=== PATIENT | male | born 1950 | race Caucasian/White ===

== ENCOUNTER → 2017-08-13 | Outpatient (CLI) | payer BC, MEDICARE ==
[2017-08-13 09:47] LABS: CH 30.3; CHCM 33.8; HCT 39.3 % (39.0-53.0); HDW 2.54; HGB 13.3 gm/dL (13.0-17.5); MCH 30.6 pg (25.0-35.0); MCHC 33.9 g/dL (31.0-37.0); MCV 90.2 fL (80.0-100.0); Mean Platelet Volume 7.4; RBC 4.36 m/uL (4.30-5.90); RDW 12.5 % (11.5-15.5); WBC 7.1 k/uL (3.8-10.6)
[2017-08-13 10:33] LABS: Erythrocyte Sedimentation Rate 8 mm/hr (0-15)
[2017-08-13 11:26] LABS: ALT 33 U/L (21-72); AST 24 U/L (17-59); Alkaline Phosphatase 82 U/L (38-126); Anion Gap 6 mmol/L; Blood Urea Nitrogen 21 mg/dL (9-20); Calcium 9.7 mg/dL (8.4-10.2); Carbon Dioxide 33 mmol/L (22-30); Chloride 100 mmol/L (98-107); Cholesterol 125 mg/dL (<200); Glucose 214 mg/dL (74-99); HDL Cholesterol 35 mg/dL (40-60); Non-African American GFR(MDRD) >60 (>60 ml/min/1.73 sqM); Potassium 4.8 mmol/L (3.5-5.1); Sodium 139 mmol/L (137-145); Total Bilirubin 0.3 mg/dL (0.2-1.3); Total Protein 6.5 g/dL (6.3-8.2)
[2017-08-13 11:53] LABS: Prostate Specific Antigen 0.62 ng/mL (0.00-4.00)
== END | disposition home or self-care (01) ==
LOC: LABWHC1 08:29
PROVIDERS: ATTEND Internal Medicine
DX: E11.9 Type 2 diabetes mellitus without complications (principal); G40.909 Epilepsy, unspecified, not intractable, without status epilepticus; Z79.4 Long term (current) use of insulin
CPT/HCPCS: 36415; 80053; 80061; 83036; 84153; 84443; 85027; 85652

== ENCOUNTER 2020-06-29 10:42 | Emergency (ER) | payer BC ==
[2020-06-29 10:50] VITALS: RESP 18; TEMP 98.4
[2020-06-29] MEDS ORDERED: Acetaminophen-Codeine 300-30mg TAB PO STA (11:18)
--- NOTE | 2020-06-29 11:19 | ED ---
Fall HPI - General Chief Complaint: Fall Stated Complaint: Fall, Time Seen by Provider: 06/29/20 11:09 Source: patient, family Mode of arrival: wheelchair - History of Present Illness Initial Comments: Patient is a 69 -year-old male presenting to emergency Department with a chief complaint of a fall. Patient reports that incident occurred 2 days ago when he tripped over a cat toy and landed on the left side of his body. Patient reports most of his pain is located in the left upper flank region. He also reports ecchymosis on the left side of the ribs. Patient reports the pain is exacerbated with left and right rotation. States he has been taking [id number] analgesics with minimal improvement in symptoms. He denies any head injuries or loss of consciousness. Denies blood thinners. Denies any head injuries. Patient states she has a history of chronic bilateral shoulder pain that is treated with cortisone injection. She does report some left-sided paraspinal tenderness near the left upper flank region. - Related Data Home Medications Medication Instructions Recorded Confirmed Amitriptyline HCl [Elavil] 50 mg PO HS 03/28/14 06/29/20 Enalapril [Vasotec] 2.5 mg PO DAILY 03/28/14 06/29/20 Insulin Glargine [Lantus] 22 units SQ HS 03/28/14 06/29/20 Multivitamin [Men's Multi-Vitamin] 1 tab PO DAILY 03/28/14 06/29/20 lamoTRIgine 200 mg PO BID 03/28/14 06/29/20 Calcium Carbonate/Vitamin D3 1 tab PO BID 04/03/14 06/29/20 [Caltrate 600 Plus D3 Tablet] Aspirin EC [Ecotrin] 325 mg PO DAILY 04/09/16 06/29/20 INSULIN ASPART (NovoLOG) [NovoLOG 7 unit SQ AC-TID 06/29/20 06/29/20 (formulary)] PARoxetine HCL [Paxil] 20 mg PO HS 06/29/20 06/29/20 Pravastatin Sodium [Pravachol] 40 mg PO HS 06/29/20 06/29/20 Allergies Allergy/AdvReac Type Severity Reaction Status Date / Time Penicillins Allergy Rash/Hives Verified 06/29/20 11:49 Review of Systems ROS Statement: Those systems with pertinent positive or pertinent negative responses have been documented in the HPI. ROS Other: All systems not noted in ROS Statement are negative. Past Medical History Past Medical History: Diabetes Mellitus, Eye Disorder, Hypertension, Seizure Disorder Additional Past Medical History / Comment(s): RASH LEFT ANKLE,VARICOSE VEINS,EYE FLOATERS,TREMORS,SEIZURES WITH LOW BLOOD SUGAR-LAST SEIZURE APPROX JUN 2015 History of Any Multi-Drug Resistant Organisms: None Reported Past Surgical History: Orthopedic Surgery Additional Past Surgical History / Comment(s): cataracts bilateral. total left knee Past Anesthesia/Blood Transfusion Reactions: No Reported Reaction Past Psychological History: No Psychological Hx Reported Smoking Status: Never smoker Past Alcohol Use History: None Reported Past Drug Use History: None Reported - Past Family History Brother(s) Family Medical History: Diabetes Mellitus Sister(s) Family Medical History: Diabetes Mellitus Additional Family Medical History / Comment(s): MS Father Family Medical History: Cancer, Diabetes Mellitus Additional Family Medical History / Comment(s): COLON [place] General Exam Limitations: no limitations General appearance: alert, in no apparent distress Head exam: Present: atraumatic, normocephalic, normal inspection Eye exam: Present: normal appearance, PERRL, EOMI Pupils: Present: normal accommodation ENT exam: Present: normal exam, normal oropharynx, mucous membranes moist, TM's normal bilaterally Neck exam: Present: normal inspection, full ROM. Absent: tenderness, meningismus Respiratory exam: Present: normal lung sounds bilaterally, chest wall tenderness (Contusion to the left upper flank region.). Absent: respiratory distress, wheezes, rales, rhonchi, stridor Cardiovascular Exam: Present: regular rate, normal rhythm, normal heart sounds GI/Abdominal exam: Present: soft. Absent: distended, tenderness, guarding, rebound, rigid Extremities exam: Present: normal inspection, full ROM, normal capillary refill, other (+2 ulnar and radial pulses bilaterally. +2 dorsalis pedis presented to vascular.). Absent: tenderness, pedal edema, joint swelling, calf tenderness Back exam: Present: normal inspection, full ROM, tenderness (Bilateral shoulder tenderness. No left hip pain or any lower extremity pain.), paraspinal tenderness (Left paraspinal in the thoracic region). Absent: CVA tenderness (R), CVA tenderness (L) Neurological exam: Present: alert, oriented X3, CN II-XII intact. Absent: normal gait Psychiatric exam: Present: normal affect, normal mood Skin exam: Present: warm, dry, intact, normal color Course Vital Signs 06/29/20 06/29/20 10:44 12:32 Temperature 98.4 F Pulse Rate 100 85 Respiratory 18 18 Rate Blood Pressure 128/73 148/75 O2 Sat by Pulse 99 98 Oximetry Medical Decision Making - Medical Decision Making Patient is a 69-year-old male presenting to emergency Department with a chief complaint of a fall. On physical examination, patient has ecchymosis measuring approximately a centimeters in length in the left upper flank region. Patient is taking shallow breaths in order to help with the discomfort. Patient was given a Tylenol 3 for symptomatically control. Chest and ribs x-ray reveals no signs of fracture dislocations. No signs of pneumo thorax. Patient was given an incentive spirometer. He will be discharged with Tylenol 3 starter pack and otherwise advised to alternate between Tylenol and Motrin for pain control. They were advised to follow with the primary care physician. Strict return parameters were thoroughly discussed the patient was understanding and agreeable. Case discussed with physician. Disposition Clinical Impression: Fall, Contusion of rib on left side Disposition: HOME SELF-CARE Condition: Good Instructions (If sedation given, give patient instructions): Fall Prevention (ED), Rib Contusion (ED) Additional Instructions: Use at this provider. Take Tylenol 3. Do not [address] or operative heavy machinery when taking medication. Return to emergency department if symptoms worsen. Is patient prescribed a controlled substance at d/c from ED?: No Referrals: John Aquino MD [Primary Care Provider] - 1-2 days Time of Disposition: 12:23
--- NOTE | 2020-06-29 11:59 | XR ---
EXAMINATION TYPE: XR ribs LT w pa chest xray DATE OF EXAM: 06/29/2020 COMPARISON: NONE HISTORY: Pain TECHNIQUE: Single view of the chest 4 views of the ribs are submitted. FINDINGS: The lungs are clear. No Evidence for pneumothorax. No evidence for focal contusion. Medi astinal structures are midline. Evaluation of the ribs fails to demonstrate evidence for displaced r ib fracture or secondary sign of rib fracture. IMPRESSION: Negative study
[2020-06-29] MEDS ORDERED: ACET/COD 300 MG/30 MG STARTER PACK 6 TAB BTL PO STA (12:21)
[2020-06-29 12:33] VITALS: BP 148/75; PULSE 85
== END 2020-06-29 12:42 | disposition home or self-care (01) ==
LOC: SUPCPDRO 10:42 → EC 10:42
DX: S20.212A Contusion of left front wall of thorax, initial encounter (principal); E11.9 Type 2 diabetes mellitus without complications; I10 Essential (primary) hypertension; G40.909 Epilepsy, unspecified, not intractable, without status epilepticus; Z79.4 Long term (current) use of insulin; Z79.899 Other long term (current) drug therapy; Z88.0 Allergy status to penicillin; W01.198A Fall on same level from slipping, tripping and stumbling with subsequent striking against other object, initial encounter; Y93.01 Activity, walking, marching and hiking; Y92.000 Kitchen of unspecified non-institutional (private) residence as the place of occurrence of the external cause
CPT/HCPCS: 99283

== ENCOUNTER 2021-02-20 14:30 | Inpatient (IN) | payer BC, MEDICARE ==
[2021-02-20 14:40] LABS: Glucose,Whole Blood >600 mg/dL (75-99)
[2021-02-20] MEDS ORDERED: SODIUM CHLORIDE 0.9% 1,000 ML IV ONE (14:51)
[2021-02-20] MEDS ORDERED: INSULIN REGULAR BOLUS (FROM DRIP BAG) IV ONE (14:51)
[2021-02-20] MEDS ORDERED: SODIUM CHLORIDE 0.9% 1,000 ML IV STA (14:54)
--- NOTE | 2021-02-20 14:57 | ED ---
General Adult HPI - General Chief complaint: Weakness Stated complaint: High Blood Sugar Time Seen by Provider: 02/20/21 14:32 Source: patient, EMS, RN notes reviewed Mode of arrival: EMS Limitations: no limitations - History of Present Illness Initial comments: Patient is a pleasant 70-year-old male presenting to the emergency Department with hyperglycemia and fatigue. Onset of symptoms was several days ago. Patient does have polyuria and polydipsia. Patient does have history of similar symptoms previously associated with hyperglycemia. Patient states no recent change in medications. No recent illness. No isolated area of weakness. No confusion. - Related Data Home Medications Medication Instructions Recorded Confirmed Amitriptyline HCl [Elavil] 50 mg PO HS 03/28/14 06/29/20 Enalapril [Vasotec] 2.5 mg PO DAILY 03/28/14 06/29/20 Insulin Glargine [Lantus] 22 units SQ HS 03/28/14 06/29/20 Multivitamin [Men's Multi-Vitamin] 1 tab PO DAILY 03/28/14 06/29/20 lamoTRIgine 200 mg PO BID 03/28/14 06/29/20 Calcium Carbonate/Vitamin D3 1 tab PO BID 04/03/14 06/29/20 [Caltrate 600 Plus D3 Tablet] Aspirin EC [Ecotrin] 325 mg PO DAILY 04/09/16 06/29/20 INSULIN ASPART (NovoLOG) [NovoLOG 7 unit SQ AC-TID 06/29/20 06/29/20 (formulary)] PARoxetine HCL [Paxil] 20 mg PO HS 06/29/20 06/29/20 Pravastatin Sodium [Pravachol] 40 mg PO HS 06/29/20 06/29/20 Allergies Allergy/AdvReac Type Severity Reaction Status Date / Time Penicillins Allergy Rash/Hives Verified 02/20/21 14:37 Review of Systems ROS Statement: Those systems with pertinent positive or pertinent negative responses have been documented in the HPI. ROS Other: All systems not noted in ROS Statement are negative. Constitutional: Denies: fever Eyes: Denies: eye pain ENT: Denies: ear pain Respiratory: Denies: cough, dyspnea Cardiovascular: Denies: chest pain Endocrine: Reports: fatigue, polydipsia, polyuria Gastrointestinal: Denies: abdominal pain Genitourinary: Denies: urgency Musculoskeletal: Denies: back pain Skin: Denies: lesions Neurological: Denies: weakness Past Medical History Past Medical History: Diabetes Mellitus, Eye Disorder, Hypertension, Seizure Disorder Additional Past Medical History / Comment(s): RASH LEFT ANKLE,VARICOSE VEINS,EYE FLOATERS,TREMORS,SEIZURES WITH LOW BLOOD SUGAR-LAST SEIZURE APPROX JUN 2015 History of Any Multi-Drug Resistant Organisms: None Reported Past Surgical History: Orthopedic Surgery Additional Past Surgical History / Comment(s): cataracts bilateral. total left knee Past Anesthesia/Blood Transfusion Reactions: No Reported Reaction Past Psychological History: No Psychological Hx Reported Smoking Status: Never smoker Past Alcohol Use History: None Reported Past Drug Use History: None Reported - Past Family History Brother(s) Family Medical History: Diabetes Mellitus Sister(s) Family Medical History: Diabetes Mellitus Additional Family Medical History / Comment(s): MS Father Family Medical History: Cancer, Diabetes Mellitus Additional Family Medical History / Comment(s): [place] General Exam Limitations: no limitations General appearance: alert, in no apparent distress Head exam: Present: normocephalic Eye exam: Present: normal appearance ENT exam: Present: mucous membranes dry Neck exam: Present: normal inspection Respiratory exam: Present: normal lung sounds bilaterally Cardiovascular Exam: Present: tachycardia GI/Abdominal exam: Present: soft. Absent: tenderness Extremities exam: Present: normal inspection Neurological exam: Present: alert. Absent: motor sensory deficit Expanded Motor strength exam: RUE: 5, LUE: 5, RLE: 5, LLE: 5 Psychiatric exam: Present: normal affect, normal mood Skin exam: Present: normal color Course Vital Signs 02/20/21 02/20/21 14:31 15:44 Temperature 98.1 F Pulse Rate 121 H 118 H Respiratory 18 18 Rate Blood Pressure 123/54 99/53 O2 Sat by Pulse 100 100 Oximetry EKG Findings - EKG Comments: EKG Findings:: Sinus tachycardia 121. TX 142. QRS 136. QT 378. QTC 536. Left axis. Nonspecific intra-articular block. Prominent T waves. Medical Decision Making - Medical Decision Making Patient reevaluated. Patient and family updated. Case discussed with Dr. Simons, who will admit, Dr. Aquino. Insulin drip started. Fluid bolus is provided. - Lab Data Result diagrams: 02/20/21 14:57 02/20/21 14:57 Lab Results 02/20/21 02/20/21 02/20/21 Range/Units 14:38 14:57 14:57 WBC 17.7 H (3.8-10.6) k/uL RBC 4.54 (4.30-5.90) m/uL Hgb 13.2 (13.0-17.5) gm/dL Hct 44.9 (39.0-53.0) % MCV 98.9 (80.0-100.0) fL MCH 29.0 (25.0-35.0) pg MCHC 29.3 L (31.0-37.0) g/dL RDW 13.0 (11.5-15.5) % Plt Count 211 (150-450) k/uL MPV 9.2 Neutrophils % 91 % Lymphocytes % 4 % Monocytes % 4 % Eosinophils % 0 % Basophils % 0 % Neutrophils # 16.2 H (1.3-7.7) k/uL Lymphocytes # 0.7 L (1.0-4.8) k/uL Monocytes # 0.8 (0-1.0) k/uL Eosinophils # 0.0 (0-0.7) k/uL Basophils # 0.0 (0-0.2) k/uL Hypochromasia Marked Sodium (137-145) mmol/L Potassium (3.5-5.1) mmol/L Chloride (98-107) mmol/L Carbon Dioxide (22-30) mmol/L Anion Gap mmol/L BUN (9-20) mg/dL Creatinine (0.66-1.25) mg/dL Est GFR (CKD-EPI)AfAm (>60 ml/min/1.73 sqM) Est GFR (CKD-EPI)NonAf (>60 ml/min/1.73 sqM) Glucose (74-99) mg/dL POC Glucose (mg/dL) >600 H (75-99) mg/dL POC Glu [employer] Scientist ID Akila Peñaloza Calcium (8.4-10.2) mg/dL Total Bilirubin (0.2-1.3) mg/dL AST (17-59) U/L ALT (4-49) U/L Alkaline Phosphatase (38-126) U/L Troponin I (0.000-0.034) ng/mL Total Protein (6.3-8.2) g/dL Albumin (3.5-5.0) g/dL Urine Color Colorless Urine Appearance Clear (Clear) Urine pH 5.0 (5.0-8.0) Ur Specific [place] 1.019 (1.001-1.035) Urine Protein Negative (Negative) Urine Glucose (UA) 4+ H (Negative) Urine Ketones 4+ H (Negative) Urine Blood Negative (Negative) Urine Nitrite Negative (Negative) Urine Bilirubin Negative (Negative) Urine Urobilinogen <2.0 (<2.0) mg/dL Ur Leukocyte Esterase Negative (Negative) 02/20/21 02/20/21 Range/Units 14:57 14:57 WBC (3.8-10.6) k/uL RBC (4.30-5.90) m/uL Hgb (13.0-17.5) gm/dL Hct (39.0-53.0) % MCV (80.0-100.0) fL MCH (25.0-35.0) pg MCHC (31.0-37.0) g/dL RDW (11.5-15.5) % Plt Count (150-450) k/uL MPV Neutrophils % % Lymphocytes % % Monocytes % % Eosinophils % % Basophils % % Neutrophils # (1.3-7.7) k/uL Lymphocytes # (1.0-4.8) k/uL Monocytes # (0-1.0) k/uL Eosinophils # (0-0.7) k/uL Basophils # (0-0.2) k/uL Hypochromasia Sodium 131 L (137-145) mmol/L Potassium 6.2 H* (3.5-5.1) mmol/L Chloride 93 L (98-107) mmol/L Carbon Dioxide 11 L (22-30) mmol/L Anion Gap 27 mmol/L BUN 33 H (9-20) mg/dL Creatinine 1.48 H (0.66-1.25) mg/dL Est GFR (CKD-EPI)AfAm 56 (>60 ml/min/1.73 sqM) Est GFR (CKD-EPI)NonAf 48 (>60 ml/min/1.73 sqM) Glucose 798 H* (74-99) mg/dL POC Glucose (mg/dL) (75-99) mg/dL POC Glu Plant [employer]eder Scientist ID Calcium 10.3 H (8.4-10.2) mg/dL Total Bilirubin 0.9 (0.2-1.3) mg/dL AST 27 (17-59) U/L ALT 18 (4-49) U/L Alkaline Phosphatase 136 H (38-126) U/L Troponin I <0.012 (0.000-0.034) ng/mL Total Protein 7.0 (6.3-8.2) g/dL Albumin 4.8 (3.5-5.0) g/dL Urine Color Urine Appearance (Clear) Urine pH (5.0-8.0) Ur Specific [place] (1.001-1.035) Urine Protein (Negative) Urine Glucose (UA) (Negative) Urine Ketones (Negative) Urine Blood (Negative) Urine Nitrite (Negative) Urine Bilirubin (Negative) Urine Urobilinogen (<2.0) mg/dL Ur Leukocyte Esterase (Negative) Critical Care Time Critical Care Time: Yes Total Critical Care Time: 32 Disposition Clinical Impression: DKA (diabetic ketoacidoses) Disposition: ADMITTED IP TO THIS HOSP Condition: Serious Is patient prescribed a controlled substance at d/c from ED?: No Referrals: John Aquino MD [Primary Care Provider] - 1-2 days Decision Time: 15:57
[2021-02-20 15:08] LABS: Basophils % (A) 0 %; Eosinophils % (A) 0 %; HCT 44.9 % (39.0-53.0); HGB 13.2 gm/dL (13.0-17.5); Hypochromasia Marked; Lymphocytes # (A) 0.7 k/uL (1.0-4.8); Lymphocytes % (A) 4 %; MCHC 29.3 g/dL (31.0-37.0); MCV 98.9 fL (80.0-100.0); Mean Platelet Volume 9.2; Monocytes # (A) 0.8 k/uL (0-1.0); Monocytes % (A) 4 %; Neutrophils # (A) 16.2 k/uL (1.3-7.7); Neutrophils % (A) 91 %; Platelet Count 211 k/uL (150-450); RBC 4.54 m/uL (4.30-5.90); WBC 17.7 k/uL (3.8-10.6)
[2021-02-20 15:20] LABS: ALT 18 U/L (4-49); AST 27 U/L (17-59); African American GFR (CKD) 56 (>60 ml/min/1.73 sqM); Albumin 4.8 g/dL (3.5-5.0); Alkaline Phosphatase 136 U/L (38-126); Anion Gap 27 mmol/L; Blood Urea Nitrogen 33 mg/dL (9-20); Calcium 10.3 mg/dL (8.4-10.2); Carbon Dioxide 11 mmol/L (22-30); Chloride 93 mmol/L (98-107); Non-African American GFR(CKD) 48 (>60 ml/min/1.73 sqM); Sodium 131 mmol/L (137-145); Total Bilirubin 0.9 mg/dL (0.2-1.3)
[2021-02-20 15:29] LABS: Glucose 798 mg/dL (74-99); Potassium 6.2 mmol/L (3.5-5.1)
[2021-02-20] MEDS ORDERED: SODIUM CHLORIDE 0.9% 500 ML 500 ML IV STA (15:36)
[2021-02-20 15:38] LABS: Appearance,Urine Clear (Clear); Bilirubin,Urine Negative (Negative); Blood,Urine Negative (Negative); Color,Urine Colorless; Glucose,Urine (UA) 4+ (Negative); Leukocyte Esterase,Urine Negative (Negative); Nitrite,Urine Negative (Negative); Protein,Urine Negative (Negative); Specific Gravity,Urine 1.019 (1.001-1.035); Urobilinogen,Urine <2.0 mg/dL (<2.0)
[2021-02-20] MEDS: INSULIN REGULAR 100 UNIT in SODIUM CHLORIDE 0.9% 100 ML IV SCH (15:41)
[2021-02-20 15:48] LABS: Ketones,Urine 4+ (Negative)
[2021-02-20] MEDS ORDERED: NALOXONE 0.4 MG/ML 1 ML VIAL IV PRN (15:57)
[2021-02-20] MEDS ORDERED: ONDANSETRON 4 MG/2 ML VIAL IVP PRN (15:57)
[2021-02-20 16:52] LABS: Glucose,Whole Blood >600 mg/dL (75-99)
--- NOTE | 2021-02-20 17:02 | XR ---
EXAMINATION TYPE: XR chest 2V DATE OF EXAM: 02/20/2021 CLINICAL HISTORY: Weakness. TECHNIQUE: Frontal and lateral view of the chest. COMPARISON: 06/29/2020 FINDINGS: The cardiomediastinal silhouette is within normal limits for size. Pulmonary vasculature i s normal. There is no focal air space opacity. No pleural effusion. No pneumothorax seen. No acute d isplaced osseous fracture. IMPRESSION: No acute cardiopulmonary process.
[2021-02-20 17:44] LABS: Glucose,Whole Blood >600 mg/dL (75-99)
[2021-02-20 18:50] LABS: Glucose,Whole Blood 543 mg/dL (75-99)
[2021-02-20 20:33] LABS: Potassium 4.3 mmol/L (3.5-5.1)
[2021-02-20 20:52] LABS: Glucose,Whole Blood 330 mg/dL (75-99)
[2021-02-20 21:28] LABS: Glucose,Whole Blood 309 mg/dL (75-99)
[2021-02-20 22:29] LABS: Glucose,Whole Blood 318 mg/dL (75-99)
[2021-02-20 23:27] LABS: Glucose,Whole Blood 218 mg/dL (75-99)
[2021-02-20 23:59] LABS: Phosphorus 1.5 mg/dL (2.5-4.5); Potassium 4.1 mmol/L (3.5-5.1)
[2021-02-21] MEDS: D5-0.45% NACL WITH KCL 20MEQ/L 1,000 ML IV SCH ×3 (00:16→11:55)
[2021-02-21] MEDS: SODIUM CHLORIDE 0.9% 1,000 ML IV SCH ×4 (00:20→06:19)
[2021-02-21 00:35] LABS: Glucose,Whole Blood 194 mg/dL (75-99)
[2021-02-21 02:30] LABS: Glucose,Whole Blood 303 mg/dL (75-99)
[2021-02-21 03:59] LABS: Glucose,Whole Blood 339 mg/dL (75-99)
[2021-02-21] MEDS: INSULIN REGULAR 100 UNIT in SODIUM CHLORIDE 0.9% 100 ML IV SCH ×2 (04:12→04:31)
[2021-02-21 05:30] LABS: Basophils % (A) 0 %; Eosinophils % (A) 0 %; HCT 36.3 % (39.0-53.0); HGB 12.6 gm/dL (13.0-17.5); Lymphocytes # (A) 1.1 k/uL (1.0-4.8); Lymphocytes % (A) 8 %; MCH 31.5 pg (25.0-35.0); MCHC 34.6 g/dL (31.0-37.0); Mean Platelet Volume 8.2; Monocytes # (A) 1.2 k/uL (0-1.0); Monocytes % (A) 8 %; Neutrophils # (A) 11.7 k/uL (1.3-7.7); Neutrophils % (A) 82 %; Platelet Count 178 k/uL (150-450); RBC 3.99 m/uL (4.30-5.90); RDW 13.1 % (11.5-15.5); WBC 14.3 k/uL (3.8-10.6)
[2021-02-21 05:45] LABS: ALT 16 U/L (4-49); AST 33 U/L (17-59); African American GFR (CKD) >90 (>60 ml/min/1.73 sqM); Albumin 3.7 g/dL (3.5-5.0); Alkaline Phosphatase 87 U/L (38-126); Anion Gap 16 mmol/L; Blood Urea Nitrogen 30 mg/dL (9-20); Calcium 9.5 mg/dL (8.4-10.2); Carbon Dioxide 16 mmol/L (22-30); Chloride 101 mmol/L (98-107); Glucose 344 mg/dL (74-99); Non-African American GFR(CKD) 83 (>60 ml/min/1.73 sqM); Potassium 4.7 mmol/L (3.5-5.1); Sodium 133 mmol/L (137-145); Total Bilirubin 0.5 mg/dL (0.2-1.3); Total Protein 5.9 g/dL (6.3-8.2)
[2021-02-21 06:18] LABS: Glucose,Whole Blood 328 mg/dL (75-99)
[2021-02-21 07:44] LABS: Glucose,Whole Blood 258 mg/dL (75-99)
[2021-02-21 08:15] LABS: African American GFR (CKD) >90 (>60 ml/min/1.73 sqM); Anion Gap 8 mmol/L; Blood Urea Nitrogen 28 mg/dL (9-20); Carbon Dioxide 23 mmol/L (22-30); Chloride 104 mmol/L (98-107); Glucose 251 mg/dL (74-99); Non-African American GFR(CKD) >90 (>60 ml/min/1.73 sqM); Phosphorus 1.1 mg/dL (2.5-4.5); Potassium 3.9 mmol/L (3.5-5.1); Sodium 135 mmol/L (137-145)
[2021-02-21 08:37] LABS: Glucose,Whole Blood 203 mg/dL (75-99)
[2021-02-21] MEDS ORDERED: Phosphorus Replacement Protoco 1 EACH MISC MISCELLANE PRN (09:02)
[2021-02-21 09:34] LABS: Glucose,Whole Blood 144 mg/dL (75-99)
[2021-02-21] MEDS: SODIUM PHOSPHATE 10 MMOL in SODIUM CHLORIDE 0.9% 250 ML IVPB SCH ×3 (09:45→14:02)
[2021-02-21 10:52] LABS: Glucose,Whole Blood 95 mg/dL (75-99)
[2021-02-21 11:49] LABS: Glucose,Whole Blood 147 mg/dL (75-99)
[2021-02-21] MEDS: INSULIN ASPART (NovoLOG) 100 UNIT/ML VIAL SQ SCH ×5 (12:00→21:09)
[2021-02-21 12:54] LABS: African American GFR (CKD) >90 (>60 ml/min/1.73 sqM); Anion Gap 8 mmol/L; Blood Urea Nitrogen 27 mg/dL (9-20); Carbon Dioxide 22 mmol/L (22-30); Chloride 104 mmol/L (98-107); Glucose 138 mg/dL (74-99); Non-African American GFR(CKD) >90 (>60 ml/min/1.73 sqM); Phosphorus 2.4 mg/dL (2.5-4.5); Potassium 4.1 mmol/L (3.5-5.1); Sodium 134 mmol/L (137-145)
[2021-02-21] MEDS ORDERED: CALCIUM CARBONATE 500 MG CHEWABLE PO PRN (14:01)
[2021-02-21 14:18] LABS: Hemoglobin A1C 8.7 % (4.0-6.0)
[2021-02-21 17:58] LABS: Glucose,Whole Blood 379 mg/dL (75-99)
[2021-02-21 20:51] LABS: Glucose,Whole Blood 250 mg/dL (75-99)
--- NOTE | 2021-02-21 20:59 | CT ---
EXAMINATION TYPE: CT brain wo con DATE OF EXAM: 02/21/2021 COMPARISON: 04/03/2014 INDICATION: ams, DKA DLP: 1099.4 mGycm, Automated exposure control for dose reduction was used. CONTRAST: None CT of the brain is performed utilizing 3 mm thick sections through the posterior fossa and 3 mm thick sections through the remaining calvarium. Study is performed within 24 hours of arrival to the hosp [facility]. No abnormal hyperdensity is present to suggest an acute intracranial hemorrhage. No mass lesion is evident. No acute infarcts are evident. Periventricular white matter hypodensity is present which is nonspecif ic but could be related to microvascular ischemic change. Ventricles and sulci are appropriate for the patient age. Paranasal sinuses and mastoid air cells within the [id number] are clear. IMPRESSIONS: 1. Atrophy with periventricular white matter ischemic type changes. 2. Findings appear progressive over the interval.
--- NOTE | 2021-02-21 21:06 | P.HPIM ---
History of Present Illness H&P Date: 02/21/21 Thang Key is a 70-year-old male patient of Dr. Aquino who presented to [facility] emergency room due to severe elevation in glucose level. Patient stated that he was having elevated glucose levels his glucometer was reading high he tried to increase his insulin doses but was not able to control his sugar level patient was feeling very tired he was having polydipsia and polyuria and decided to come to emergency room for further treatment. Patient was evaluated in emergency room vital examination on presentation revealed a temperature of 98.1 pulse 121 respiration 18 blood pressure 123/54 pulse ox 100% on room air laboratory data revealed a white blood count of 17.7 hemoglobin 13.2 platelet count 211 sodium 131 potassium 6.2 BUN 33 creatinine 1.48 glucose level on presentation was 798 CO2 level was 11 patient was started on IV fluid, IV insulin drip, and was admitted to telemetry floor for further evaluation and treatment. Past Medical History Past Medical History: Diabetes Mellitus, Eye Disorder, Hypertension, Seizure D isorder Additional Past Medical History / Comment(s): RASH LEFT ANKLE,VARICOSE VEINS,EYE FLOATERS,TREMORS,SEIZURES WITH LOW BLOOD SUGAR-LAST SEIZURE APPROX JUN 2015 History of Any Multi-Drug Resistant Organisms: None Reported Past Surgical History: Orthopedic Surgery Additional Past Surgical History / Comment(s): cataracts bilateral. total left knee Past Anesthesia/Blood Transfusion Reactions: No Reported Reaction Past Psychological History: No Psychological Hx Reported Smoking Status: Never smoker Past Alcohol Use History: None Reported Past Drug Use History: None Reported - Past Family History Brother(s) Family Medical History: Diabetes Mellitus Sister(s) Family Medical History: Diabetes Mellitus Additional Family Medical History / Comment(s): MS Father Family Medical History: Cancer, Diabetes Mellitus Additional Family Medical History / Comment(s): COLON CA Medications and Allergies Home Medications Medication Instructions Recorded Confirmed Type Amitriptyline HCl [Elavil] 50 mg PO HS 03/28/14 02/20/21 History Enalapril [Vasotec] 2.5 mg PO DAILY 03/28/14 02/20/21 History Insulin Glargine [Lantus] 22 units SQ HS 03/28/14 02/20/21 History Multivitamin [Men's Multi-Vitamin] 1 tab PO DAILY 03/28/14 02/20/21 History lamoTRIgine 400 mg PO DAILY 03/28/14 02/20/21 History Aspirin EC [Ecotrin] 325 mg PO DAILY 04/09/16 02/20/21 History INSULIN ASPART (NovoLOG) [NovoLOG 7 unit SQ AC-TID 06/29/20 02/20/21 History (formulary)] PARoxetine HCL [Paxil] 40 mg PO HS 06/29/20 02/20/21 History Pravastatin Sodium [Pravachol] 40 mg PO HS 06/29/20 02/20/21 History Calcium Carbonate [Calcium] 600 mg PO DAILY 02/20/21 02/20/21 History Allergies Allergy/AdvReac Type Severity Reaction Status Date / Time Penicillins Allergy Rash/Hives Verified 02/20/21 17:14 Physical Exam Vitals: Vital Signs Temp Pulse Resp BP Pulse Ox 02/21/21 06:07 98 17 130/66 97 02/20/21 22:42 98.1 F 98 18 137/63 97 02/20/21 16:56 120/49 02/20/21 16:15 119 H 20 108/47 98 02/20/21 15:44 118 H 18 99/53 100 02/20/21 14:31 98.1 F 121 H 18 123/54 100 Intake and Output 02/20/21 02/21/21 02/21/21 22:59 06:59 14:59 Intake Total 119.080 Balance 119.080 Intake: Intake, IV Titration 119.080 Amount Insulin Regular 100 unit 119.080 In Sodium Chloride 0.9% 100 ml @ 0.1 UNITS/KG/HR 8.475 mls/hr IV .[id number] Rx#:[id number] In general patient is alert and oriented x3 in no distress HEENT head normocephalic and atraumatic Neck is supple no JVD no goiter no lymphadenopathy no carotid bruit Chest examination is clear to auscultation no crackles no wheezing Cardiac exam reveals regular heart sounds S1 and S2 no gallops no murmurs Abdomen is soft nontender no organomegaly with normal bowel sounds Extremity exam reveals no edema no cyanosis or clubbing Neurological examination reveals significant expressive aphasia otherwise no gross focal deficits, is at the bedside and she stated that patient had difficulty with his speech for a long time however current symptoms are much worse then usual Results CBC & Chem 7: 02/21/21 04:10 02/21/21 12:07 Labs: Abnormal Lab Results - Last 24 Hours (Table) 02/20/21 02/20/21 02/20/21 Range/Units 14:38 14:57 14:57 WBC 17.7 H (3.8-10.6) k/uL RBC (4.30-5.90) m/uL Hgb (13.0-17.5) gm/dL Hct (39.0-53.0) % MCHC 29.3 L (31.0-37.0) g/dL Neutrophils # 16.2 H (1.3-7.7) k/uL Lymphocytes # 0.7 L (1.0-4.8) k/uL Monocytes # (0-1.0) k/uL Sodium (137-145) mmol/L Potassium (3.5-5.1) mmol/L Chloride (98-107) mmol/L Carbon Dioxide (22-30) mmol/L BUN (9-20) mg/dL Creatinine (0.66-1.25) mg/dL Glucose (74-99) mg/dL POC Glucose (mg/dL) >600 H (75-99) mg/dL Osmolality (280-301) mosm/kg Calcium (8.4-10.2) mg/dL Phosphorus (2.5-4.5) mg/dL Alkaline Phosphatase (38-126) U/L Total Protein (6.3-8.2) g/dL Urine Glucose (UA) 4+ H (Negative) Urine Ketones 4+ H (Negative) 02/20/21 02/20/21 02/20/21 Range/Units 14:57 14:57 16:50 WBC (3.8-10.6) k/uL RBC (4.30-5.90) m/uL Hgb (13.0-17.5) gm/dL Hct (39.0-53.0) % MCHC (31.0-37.0) g/dL Neutrophils # (1.3-7.7) k/uL Lymphocytes # (1.0-4.8) k/uL Monocytes # (0-1.0) k/uL Sodium 131 L (137-145) mmol/L Potassium 6.2 H* (3.5-5.1) mmol/L Chloride 93 L (98-107) mmol/L Carbon Dioxide 11 L (22-30) mmol/L BUN 33 H (9-20) mg/dL Creatinine 1.48 H (0.66-1.25) mg/dL Glucose 798 H* (74-99) mg/dL POC Glucose (mg/dL) >600 H (75-99) mg/dL Osmolality 340 H* (280-301) mosm/kg Calcium 10.3 H (8.4-10.2) mg/dL Phosphorus (2.5-4.5) mg/dL Alkaline Phosphatase 136 H (38-126) U/L Total Protein (6.3-8.2) g/dL Urine Glucose (UA) (Negative) Urine Ketones (Negative) 02/20/21 02/20/21 02/20/21 Range/Units 17:41 18:49 19:29 WBC (3.8-10.6) k/uL RBC (4.30-5.90) m/uL Hgb (13.0-17.5) gm/dL Hct (39.0-53.0) % MCHC (31.0-37.0) g/dL Neutrophils # (1.3-7.7) k/uL Lymphocytes # (1.0-4.8) k/uL Monocytes # (0-1.0) k/uL Sodium (137-145) mmol/L Potassium (3.5-5.1) mmol/L Chloride (98-107) mmol/L Carbon Dioxide (22-30) mmol/L BUN (9-20) mg/dL Creatinine (0.66-1.25) mg/dL Glucose (74-99) mg/dL POC Glucose (mg/dL) >600 H 543 H (75-99) mg/dL Osmolality (280-301) mosm/kg Calcium (8.4-10.2) mg/dL Phosphorus 2.0 L (2.5-4.5) mg/dL Alkaline Phosphatase (38-126) U/L Total Protein (6.3-8.2) g/dL Urine Glucose (UA) (Negative) Urine Ketones (Negative) 02/20/21 02/20/21 02/20/21 Range/Units 19:29 20:51 21:27 WBC (3.8-10.6) k/uL RBC (4.30-5.90) m/uL Hgb (13.0-17.5) gm/dL Hct (39.0-53.0) % MCHC (31.0-37.0) g/dL Neutrophils # (1.3-7.7) k/uL Lymphocytes # (1.0-4.8) k/uL Monocytes # (0-1.0) k/uL Sodium (137-145) mmol/L Potassium (3.5-5.1) mmol/L Chloride (98-107) mmol/L Carbon Dioxide 16 L (22-30) mmol/L BUN 33 H (9-20) mg/dL Creatinine 1.32 H (0.66-1.25) mg/dL Glucose 438 H (74-99) mg/dL POC Glucose (mg/dL) 330 H 309 H (75-99) mg/dL Osmolality (280-301) mosm/kg Calcium (8.4-10.2) mg/dL Phosphorus (2.5-4.5) mg/dL Alkaline Phosphatase (38-126) U/L Total Protein (6.3-8.2) g/dL Urine Glucose (UA) (Negative) Urine Ketones (Negative) 02/20/21 02/20/21 02/20/21 Range/Units 22:27 23:09 23:25 WBC (3.8-10.6) k/uL RBC (4.30-5.90) m/uL Hgb (13.0-17.5) gm/dL Hct (39.0-53.0) % MCHC (31.0-37.0) g/dL Neutrophils # (1.3-7.7) k/uL Lymphocytes # (1.0-4.8) k/uL Monocytes # (0-1.0) k/uL Sodium (137-145) mmol/L Potassium (3.5-5.1) mmol/L Chloride (98-107) mmol/L Carbon Dioxide (22-30) mmol/L BUN 34 H (9-20) mg/dL Creatinine (0.66-1.25) mg/dL Glucose 222 H (74-99) mg/dL POC Glucose (mg/dL) 318 H 218 H (75-99) mg/dL Osmolality (280-301) mosm/kg Calcium (8.4-10.2) mg/dL Phosphorus 1.5 L (2.5-4.5) mg/dL Alkaline Phosphatase (38-126) U/L Total Protein (6.3-8.2) g/dL Urine Glucose (UA) (Negative) Urine Ketones (Negative) 02/21/21 02/21/21 02/21/21 Range/Units 00:33 02:29 03:58 WBC (3.8-10.6) k/uL RBC (4.30-5.90) m/uL Hgb (13.0-17.5) gm/dL Hct (39.0-53.0) % MCHC (31.0-37.0) g/dL Neutrophils # (1.3-7.7) k/uL Lymphocytes # (1.0-4.8) k/uL Monocytes # (0-1.0) k/uL Sodium (137-145) mmol/L Potassium (3.5-5.1) mmol/L Chloride (98-107) mmol/L Carbon Dioxide (22-30) mmol/L BUN (9-20) mg/dL Creatinine (0.66-1.25) mg/dL Glucose (74-99) mg/dL POC Glucose (mg/dL) 194 H 303 H 339 H (75-99) mg/dL Osmolality (280-301) mosm/kg Calcium (8.4-10.2) mg/dL Phosphorus (2.5-4.5) mg/dL Alkaline Phosphatase (38-126) U/L Total Protein (6.3-8.2) g/dL Urine Glucose (UA) (Negative) Urine Ketones (Negative) 02/21/21 02/21/21 02/21/21 Range/Units 04:10 04:10 06:16 WBC 14.3 H (3.8-10.6) k/uL RBC 3.99 L (4.30-5.90) m/uL Hgb 12.6 L (13.0-17.5) gm/dL Hct 36.3 L (39.0-53.0) % MCHC (31.0-37.0) g/dL Neutrophils # 11.7 H (1.3-7.7) k/uL Lymphocytes # (1.0-4.8) k/uL Monocytes # 1.2 H (0-1.0) k/uL Sodium 133 L (137-145) mmol/L Potassium (3.5-5.1) mmol/L Chloride (98-107) mmol/L Carbon Dioxide 16 L (22-30) mmol/L BUN 30 H (9-20) mg/dL Creatinine (0.66-1.25) mg/dL Glucose 344 H (74-99) mg/dL POC Glucose (mg/dL) 328 H (75-99) mg/dL Osmolality (280-301) mosm/kg Calcium (8.4-10.2) mg/dL Phosphorus (2.5-4.5) mg/dL Alkaline Phosphatase (38-126) U/L Total Protein 5.9 L (6.3-8.2) g/dL Urine Glucose (UA) (Negative) Urine Ketones (Negative) Assessment and Plan Plan: Diabetic ketoacidosis, patient was started on IV fluid IV insulin drip and electrolyte correction called Underlying history of hypertension Underlying history of hyperlipidemia Underlying history of insulin-dependent diabetes mellitus Underlying history of depression Expressive aphasia At this time patient is admitted to telemetry floor He was started on insulin drip and IV fluid Home medications reviewed and reordered Computed tomography scan of the brain was requested in regard to expressive aphasia, neurology consultation requested Will follow closely
[2021-02-21] MEDS: INSULIN DETEMIR (LEVEMIR) 100 UNIT/ML SYR SQ SCH (21:10)
[2021-02-22 00:47] LABS: Glucose,Whole Blood 121 mg/dL (75-99)
[2021-02-22] MEDS: lamoTRIgine 100 MG TAB PO SCH ×2 (01:27→08:35)
[2021-02-22] MEDS: PARoxetine 20 MG TAB PO SCH ×2 (01:28→20:44)
[2021-02-22] MEDS: ASPIRIN 325 MG TAB PO SCH ×2 (01:28→08:36)
[2021-02-22] MEDS: AMITRIPTYLINE HCL 50 MG TAB PO SCH ×2 (01:28→20:44)
[2021-02-22] MEDS: PRAVASTATIN SODIUM 40 MG TAB PO SCH ×2 (01:29→20:44)
[2021-02-22] MEDS: lisinopriL 5 MG TAB PO SCH ×2 (01:29→08:36)
[2021-02-22 07:17] LABS: Glucose,Whole Blood 72 mg/dL (75-99)
[2021-02-22 07:55] LABS: Basophils % (A) 0 %; Eosinophils # (A) 0.2 k/uL (0-0.7); Eosinophils % (A) 3 %; HCT 41.8 % (39.0-53.0); HGB 13.9 gm/dL (13.0-17.5); Lymphocytes # (A) 1.9 k/uL (1.0-4.8); Lymphocytes % (A) 22 %; MCH 29.6 pg (25.0-35.0); MCHC 33.2 g/dL (31.0-37.0); MCV 89.3 fL (80.0-100.0); Mean Platelet Volume 7.7; Monocytes # (A) 0.6 k/uL (0-1.0); Monocytes % (A) 7 %; Neutrophils # (A) 5.8 k/uL (1.3-7.7); Neutrophils % (A) 66 %; Platelet Count 166 k/uL (150-450); RBC 4.68 m/uL (4.30-5.90); WBC 8.7 k/uL (3.8-10.6)
[2021-02-22 08:03] LABS: ALT 19 U/L (4-49); AST 42 U/L (17-59); African American GFR (CKD) >90 (>60 ml/min/1.73 sqM); Albumin 3.7 g/dL (3.5-5.0); Albumin/Globulin Ratio 1.6; Alkaline Phosphatase 67 U/L (38-126); Anion Gap 6 mmol/L; Blood Urea Nitrogen 15 mg/dL (9-20); Calcium 9.1 mg/dL (8.4-10.2); Carbon Dioxide 27 mmol/L (22-30); Chloride 105 mmol/L (98-107); Globulin 2.3 g/dL; Glucose 72 mg/dL (74-99); Non-African American GFR(CKD) >90 (>60 ml/min/1.73 sqM); Potassium 3.9 mmol/L (3.5-5.1); Sodium 138 mmol/L (137-145); Total Bilirubin 0.4 mg/dL (0.2-1.3)
[2021-02-22] MEDS: INSULIN ASPART (NovoLOG) 100 UNIT/ML VIAL SQ SCH ×7 (08:30→21:12)
[2021-02-22] MEDS: CALCIUM CARBONATE 500 MG CHEWABLE PO SCH (08:35)
[2021-02-22] MEDS: MULTIVITAMINS, THERA 1 EACH TAB PO SCH (08:35)
[2021-02-22 12:28] LABS: Glucose,Whole Blood 119 mg/dL (75-99)
--- NOTE | 2021-02-22 12:45 | P.PN ---
Subjective Progress Note Date: 02/22/21 Thang Key is a 70-year-old male patient of Dr. Aquino who presented to [facility] emergency room due to severe elevation in glucose level. Patient stated that he was having elevated glucose levels his glucometer was reading high he tried to increase his insulin doses but was not able to control his sugar level patient was feeling very tired he was having polydipsia and polyuria and decided to come to emergency room for further treatment. Patient was evaluated in emergency room vital examination on presentation revealed a temperature of 98.1 pulse 121 respiration 18 blood pressure 123/54 pulse ox 100% on room air laboratory data revealed a white blood count of 17.7 hemoglobin 13.2 platelet count 211 sodium 131 potassium 6.2 BUN 33 creatinine 1.48 glucose level on presentation was 798 CO2 level was 11 patient was started on IV fluid, IV insulin drip, and was admitted to telemetry floor for further evaluation and treatment. On 02/22/2021 patient's resting comfortably in bed sleepy but responds to questions still present with expressive aphasia. Patient has been transitioned home medication. Neurology services have been consulted. Head CT was completed. Patient denies chest pain or shortness breath. Patient denies nausea vomiting or diarrhea. Patient denies any urinary burning or frequency. Objective - Vital Signs Vital signs: Vital Signs Temp 97.5 F L 02/22/21 04:00 Pulse 93 02/22/21 04:00 Resp 16 02/22/21 04:00 BP 131/78 02/22/21 04:00 Pulse Ox 94 L 02/22/21 04:00 Intake & Output 02/21/21 02/22/21 02/22/21 18:59 06:59 18:59 Intake Total 38.538 Output Total 600 Balance 38.538 -600 Weight 78.5 kg Intake: Intake, IV Titration 38.538 Amount Insulin Regular 100 unit 38.538 In Sodium Chloride 0.9% 100 ml @ 0.1 UNITS/KG/HR 8.475 mls/hr IV .[id number] [facility] Rx#:[id number] Output: Urine 600 Other: Voiding Method Urinal - Exam In general patient is alert and oriented x3 in no distress HEENT head normocephalic and atraumatic Neck is supple no JVD no goiter no lymphadenopathy no carotid bruit Chest examination is clear to auscultation no crackles no wheezing Cardiac exam reveals regular heart sounds S1 and S2 no gallops no murmurs Abdomen is soft nontender no organomegaly with normal bowel sounds Extremity exam reveals no edema no cyanosis or clubbing Neurological examination reveals significant expressive aphasia otherwise no gross focal deficits, is at the bedside and she stated that patient had difficulty with his speech for a long time however current symptoms are much worse then usual - Labs CBC & Chem 7: 02/22/21 07:12 02/22/21 07:12 Labs: Abnormal Lab Results - Last 24 Hours (Table) 02/21/21 02/21/21 02/21/21 Range/Units 04:10 12:07 17:48 Sodium 134 L (137-145) mmol/L BUN 27 H (9-20) mg/dL Creatinine (0.66-1.25) mg/dL Glucose 138 H (74-99) mg/dL POC Glucose (mg/dL) 379 H (75-99) mg/dL Hemoglobin A1c 8.7 H (4.0-6.0) % Phosphorus 2.4 L (2.5-4.5) mg/dL Total Protein (6.3-8.2) g/dL 02/21/21 02/22/21 02/22/21 Range/Units 20:50 00:45 07:10 Sodium (137-145) mmol/L BUN (9-20) mg/dL Creatinine (0.66-1.25) mg/dL Glucose (74-99) mg/dL POC Glucose (mg/dL) 250 H 121 H 72 L (75-99) mg/dL Hemoglobin A1c (4.0-6.0) % Phosphorus (2.5-4.5) mg/dL Total Protein (6.3-8.2) g/dL 02/22/21 02/22/21 Range/Units 07:12 12:16 Sodium (137-145) mmol/L BUN (9-20) mg/dL Creatinine 0.61 L (0.66-1.25) mg/dL Glucose 72 L (74-99) mg/dL POC Glucose (mg/dL) 119 H (75-99) mg/dL Hemoglobin A1c (4.0-6.0) % Phosphorus (2.5-4.5) mg/dL Total Protein 6.0 L (6.3-8.2) g/dL Assessment and Plan Plan: Diabetic ketoacidosis, patient was started on IV fluid IV insulin drip and electrolyte correction called. Patient has been transitioned home dose of insulin Underlying history of hypertension Underlying history of hyperlipidemia Underlying history of insulin-dependent diabetes mellitus Underlying history of depression Expressive aphasia. Head CT was completed showing atrophy with periventricular white matter ischemic type changes. findings appear progressive over the interval. Neurology services have been consulted DVT prophyla Lovenox. GI prophylaxis Protonix Patient transitioned to insulin subcu Neurology services have been consulted
[2021-02-22 13:10] VITALS: BMI 23.4
--- NOTE | 2021-02-22 15:30 | P.CNNES ---
History of Present Illness Consult date: 02/22/21 Requesting physician: Shelley Simons Reason for Consult: Slurred speech History of Present Illness: Patient is a 70-year-old male came to the hospital by ambulance 02/20/2021 for evaluation of hyperglycemia and fatigue. Symptoms started several days ago. Patient does have polyuria and polydipsia. Neurology was consulted for concern about expressive aphasia. Patient denies any focal neurological symptoms or any speech difficulty. Patient denies any focal symptoms like numbness tingling focal weakness incoordination problem with vision hoarseness. Vital signs on arrival blood pressure was 123/54 pulse rate 121 and temperature 98.1. EKG shows sinus tachycardia, possible left atrial enlargement. Left axis deviation. Nonspecific intraventricular block. Chest x-ray showed no acute cardiopulmonary process. CT scan of the head showed atrophy with periventricular white matter ischemic Changes. Findings appear progressive over the interval as compared to computed tomography scan from 04/03/2014. Patient's blood test on arrival shows normal CBC, sodium 131 potassium 6.2, mild renal insufficiency with BUN 33 creatinine 1.48, sugar was 798 and osmolality 340. Hepatic panel normal. His acetone was positive at first, but now is negative. Hemoglobin A1c 8.7. Coronal virus PCR negative I spoke to patient's primary physician Dr. Simons, who mentioned that patient yesterday was having significant expressive aphasia. He could not say even a sentence. Dr. Simons could not understand what he was saying because of slurring. Patient could not express himself at all. This prompted neurological consultation rule out TIA. Patient takes lamotrigine 400 mg daily, insulin, enalapril 2.5 mg, amitriptyline 50 mg at bedtime, aspirin 325 mg, Pravachol 40 mg, Paxil 40 mg. Patient has history of diabetes for 42 years. He denies any alcohol or tobacco use. He lives with his . Has no children. He has 2 sisters. Review of Systems Denies any chest pain shortness of breath wheezing or cough. Patient denies any abdominal pain nausea vomiting diarrhea. Denies any double vision, loss of vision, hoarseness. Denies any fever or chills. Denies any rash. All other review of systems noncontributory. Past Medical History Past Medical History: Diabetes Mellitus, Eye Disorder, Hypertension, Seizure Disorder Additional Past Medical History / Comment(s): RASH LEFT ANKLE,VARICOSE VEINS,EYE FLOATERS,TREMORS,SEIZURES WITH LOW BLOOD SUGAR-LAST SEIZURE APPROX JUN 2015 History of Any Multi-Drug Resistant Organisms: None Reported Past Surgical History: Orthopedic Surgery Additional Past Surgical History / Comment(s): cataracts bilateral. total left knee. left index finger thea placement Past Anesthesia/Blood Transfusion Reactions: No Reported Reaction Past Psychological History: No Psychological Hx Reported Smoking Status: Never smoker Past Alcohol Use History: None Reported Additional Past Alcohol Use History / Comment(s): QUIT SMOKING 1974,STARTED 1973 Past Drug Use History: None Reported - Past Family History Brother(s) Family Medical History: Diabetes Mellitus Sister(s) Family Medical History: Diabetes Mellitus Additional Family Medical History / Comment(s): MS Father Family Medical History: Cancer, Diabetes Mellitus Additional Family Medical History / Comment(s): COLON CA Medications and Allergies Home Medications Medication Instructions Recorded Confirmed Type Amitriptyline HCl [Elavil] 50 mg PO HS 03/28/14 02/20/21 History Enalapril [Vasotec] 2.5 mg PO DAILY 03/28/14 02/20/21 History Insulin Glargine [Lantus] 22 units SQ HS 03/28/14 02/20/21 History Multivitamin [Men's Multi-Vitamin] 1 tab PO DAILY 03/28/14 02/20/21 History lamoTRIgine 400 mg PO DAILY 03/28/14 02/20/21 History Aspirin EC [Ecotrin] 325 mg PO DAILY 04/09/16 02/20/21 History INSULIN ASPART (NovoLOG) [NovoLOG 7 unit SQ AC-TID 06/29/20 02/20/21 History (formulary)] PARoxetine HCL [Paxil] 40 mg PO HS 06/29/20 02/20/21 History Pravastatin Sodium [Pravachol] 40 mg PO HS 06/29/20 02/20/21 History Calcium Carbonate [Calcium] 600 mg PO DAILY 02/20/21 02/20/21 History Allergies Allergy/AdvReac Type Severity Reaction Status Date / Time Penicillins Allergy Rash/Hives Verified 02/20/21 17:14 Physical Examination - Vital Signs Vital Signs: Vital Signs Temp Pulse Pulse Resp BP BP Pulse Ox 02/22/21 04:00 97.5 F L 93 16 131/78 94 L 02/21/21 23:36 98 16 133/72 98 02/21/21 18:07 97.5 F L 108 H 18 141/74 96 02/21/21 15:35 96 18 124/72 95 02/21/21 14:04 102 H 18 120/68 95 Intake and Output 02/21/21 02/22/21 02/22/21 22:59 06:59 14:59 Output Total 600 Balance -600 Output: Urine 600 Other: Voiding Method Urinal Weight 78.5 kg Patient is an elderly male, in no acute distress. Patient is slightly drowsy, keeps his eyes closed, but does wake up, and answers appropriately. Patient is awake oriented to time place and person. He knows it is February 2021 and that he is in [facility] and name of the current president. Speech and language functions are normal. Attention, concentration and fund of knowledge is adequate. Patient does have slow mentation, prolonged latency time to answer questions. Patient can name and repeat very well. On cranial examination, pupils are equal, round and reacting to light, visual north are full on confrontation, extraocular muscles are intact with no nystagmus. Face is symmetric, tongue protrudes to the midline. Palatal elevation and sensation normal, hearing is mildly decreased and shoulder shrug normal, facial sensation normal. On muscle strength testing, there is no pronator drift and the strength is normal in arms and legs distally and proximally. Patient has hammertoes and high arched feet. Patient has some black spot in the bottom of the left foot. Deep tendon reflexes are 2+ all over and plantars are withdrawal. Sensory to touch is equal with no neglect on double simultaneous stimulation. Cerebellar function showed no ataxia for [id number] testing. No dysdiadochokinesia. Tone and bulk of muscles normal. Gait not checked. Patient was drowsy. On general examination, there is no carotid bruit or murmur, S1-S2 audible. Abdomen is soft nontender. Chest is clear. Peripheral pulses are present. No edema. Results - Laboratory Findings CBC and BMP: 02/23/21 07:07 02/23/21 07:07 Abnormal Lab Findings: Abnormal Labs 02/20/21 02/20/21 02/20/21 14:38 14:57 14:57 WBC 17.7 H RBC Hgb Hct MCHC 29.3 L Neutrophils # 16.2 H Lymphocytes # 0.7 L Monocytes # Sodium Potassium Chloride Carbon Dioxide BUN Creatinine Glucose POC Glucose (mg/dL) >600 H Hemoglobin A1c Osmolality Calcium Phosphorus Alkaline Phosphatase Total Protein Urine Glucose (UA) 4+ H Urine Ketones 4+ H 02/20/21 02/20/21 02/20/21 14:57 14:57 16:50 WBC RBC Hgb Hct MCHC Neutrophils # Lymphocytes # Monocytes # Sodium 131 L Potassium 6.2 H* Chloride 93 L Carbon Dioxide 11 L BUN 33 H Creatinine 1.48 H Glucose 798 H* POC Glucose (mg/dL) >600 H Hemoglobin A1c Osmolality 340 H* Calcium 10.3 H Phosphorus Alkaline Phosphatase 136 H Total Protein Urine Glucose (UA) Urine Ketones 02/20/21 02/20/21 02/20/21 17:41 18:49 19:29 WBC RBC Hgb Hct MCHC Neutrophils # Lymphocytes # Monocytes # Sodium Potassium Chloride Carbon Dioxide BUN Creatinine Glucose POC Glucose (mg/dL) >600 H 543 H Hemoglobin A1c Osmolality Calcium Phosphorus 2.0 L Alkaline Phosphatase Total Protein Urine Glucose (UA) Urine Ketones 02/20/21 02/20/21 02/20/21 19:29 20:51 21:27 WBC RBC Hgb Hct MCHC Neutrophils # Lymphocytes # Monocytes # Sodium Potassium Chloride Carbon Dioxide 16 L BUN 33 H Creatinine 1.32 H Glucose 438 H POC Glucose (mg/dL) 330 H 309 H Hemoglobin A1c Osmolality Calcium Phosphorus Alkaline Phosphatase Total Protein Urine Glucose (UA) Urine Ketones 02/20/21 02/20/21 02/20/21 22:27 23:09 23:25 WBC RBC Hgb Hct MCHC Neutrophils # Lymphocytes # Monocytes # Sodium Potassium Chloride Carbon Dioxide BUN 34 H Creatinine Glucose 222 H POC Glucose (mg/dL) 318 H 218 H Hemoglobin A1c Osmolality Calcium Phosphorus 1.5 L Alkaline Phosphatase Total Protein Urine Glucose (UA) Urine Ketones 02/21/21 02/21/21 02/21/21 00:33 02:29 03:58 WBC RBC Hgb Hct MCHC Neutrophils # Lymphocytes # Monocytes # Sodium Potassium Chloride Carbon Dioxide BUN Creatinine Glucose POC Glucose (mg/dL) 194 H 303 H 339 H Hemoglobin A1c Osmolality Calcium Phosphorus Alkaline Phosphatase Total Protein Urine Glucose (UA) Urine Ketones 02/21/21 02/21/21 02/21/21 04:10 04:10 04:10 WBC 14.3 H RBC 3.99 L Hgb 12.6 L Hct 36.3 L MCHC Neutrophils # 11.7 H Lymphocytes # Monocytes # 1.2 H Sodium 133 L Potassium Chloride Carbon Dioxide 16 L BUN 30 H Creatinine Glucose 344 H POC Glucose (mg/dL) Hemoglobin A1c 8.7 H Osmolality Calcium Phosphorus Alkaline Phosphatase Total Protein 5.9 L Urine Glucose (UA) Urine Ketones 02/21/21 02/21/21 02/21/21 06:16 07:40 07:42 WBC RBC Hgb Hct MCHC Neutrophils # Lymphocytes # Monocytes # Sodium 135 L Potassium Chloride Carbon Dioxide BUN 28 H Creatinine Glucose 251 H POC Glucose (mg/dL) 328 H 258 H Hemoglobin A1c Osmolality Calcium Phosphorus 1.1 L Alkaline Phosphatase Total Protein Urine Glucose (UA) Urine Ketones 02/21/21 02/21/21 02/21/21 08:34 09:33 11:47 WBC RBC Hgb Hct MCHC Neutrophils # Lymphocytes # Monocytes # Sodium Potassium Chloride Carbon Dioxide BUN Creatinine Glucose POC Glucose (mg/dL) 203 H 144 H 147 H Hemoglobin A1c Osmolality Calcium Phosphorus Alkaline Phosphatase Total Protein Urine Glucose (UA) Urine Ketones 02/21/21 02/21/21 02/21/21 12:07 17:48 20:50 WBC RBC Hgb Hct MCHC Neutrophils # Lymphocytes # Monocytes # Sodium 134 L Potassium Chloride Carbon Dioxide BUN 27 H Creatinine Glucose 138 H POC Glucose (mg/dL) 379 H 250 H Hemoglobin A1c Osmolality Calcium Phosphorus 2.4 L Alkaline Phosphatase Total Protein Urine Glucose (UA) Urine Ketones 02/22/21 02/22/21 02/22/21 00:45 07:10 07:12 WBC RBC Hgb Hct MCHC Neutrophils # Lymphocytes # Monocytes # Sodium Potassium Chloride Carbon Dioxide BUN Creatinine 0.61 L Glucose 72 L POC Glucose (mg/dL) 121 H 72 L Hemoglobin A1c Osmolality Calcium Phosphorus Alkaline Phosphatase Total Protein 6.0 L Urine Glucose (UA) Urine Ketones Assessment and Plan Assessment: * Possible TIA manifesting with transient expressive aphasia. At present patient's NIH stroke scale is 0. Symptoms seems to have resolved. * Diabetes poorly controlled, admitted with DKA * Mild renal insufficiency, resolved * Hypertension Plan: * Patient will undergo MRI of the brain to evaluate for an acute stroke. * We will check carotid Doppler and 2-D echo. * Patient's diabetes is poorly controlled with hemoglobin A1c 8.7. Suggest optimizing control of diabetes to target A1c <7.0. * Fasting lipid panel * Lamictal level. B12, folate and TSH. * Patient has been started on aspirin 325 mg daily (no antiplatelet medications per his home medication list), Lovenox 40 mg subcu daily and Pravachol 40 mg. * We will follow.
--- NOTE | 2021-02-22 16:54 | US ---
EXAMINATION TYPE: US carotid duplex BILAT DATE OF EXAM: 02/22/2021 COMPARISON: NONE CLINICAL HISTORY: TIA. EXAM MEASUREMENTS: RIGHT: Peak Systolic Velocity (PSV) cm/sec ----- Right CCA: 124 ----- Right ICA: 105 ----- Right ECA: 141 ICA/CCA ratio: 0.85 RIGHT: End Diastole cm/sec ----- Right CCA: 18.3 ----- Right ICA: 21.2 ----- Right ECA: 0.0 LEFT: Peak Systolic Velocity (PSV) cm/sec ----- Left CCA: 124 ----- Left ICA: 112 ----- Left ECA: 113 ICA/CCA ratio: 0.90 LEFT: End Diastole cm/sec ----- Left CCA: 13.6 ----- Left ICA: 24 ----- Left ECA: 0.0 VERTEBRALS (direction of flow): Right Vertebral: Antegrade Left Vertebral: Antegrade Rhythm: Normal No significant stenosis seen. IMPRESSION: 1. Atherosclerotic plaque with no significant hemodynamic stenosis. Criteria for Assigning % of Stenosis / Diameter reduction (Estimation based on the indirect measurements of the internal carotid artery velocities (ICA PSV). 1. Normal (no stenosis)=ICA PSV < 125 cm/s: ratio < 2.0: ICA EDV<40 cm/s. 2. Less than 50% stenosis=ICA PSV < 125 cm/s: ratio < 2.0: ICA EDV<40 cm/s. 3. 50 to 69% stenosis=ICA PSV of 125 to 230 cm/s: ration 2.0 ? 4.0: ICA EDV 40-100 cm/s. 4. Greater than 70% stenosis to near occlusion= ICA PSV > 230 cm/s: ratio > 4.0: ICA EDV > 100 cm/s. 5. Near occlusion= ICA PSV velocities may be low or undetectable: variable ratio and ICA EDV. 6. Total occlusion=unable to detect flow.
[2021-02-22 17:06] LABS: Glucose,Whole Blood 185 mg/dL (75-99)
[2021-02-22 21:04] LABS: Glucose,Whole Blood 225 mg/dL (75-99)
[2021-02-22] MEDS: INSULIN DETEMIR (LEVEMIR) 100 UNIT/ML SYR SQ SCH (21:12)
[2021-02-23 07:24] LABS: Glucose,Whole Blood 176 mg/dL (75-99)
[2021-02-23 08:01] LABS: Basophils % (A) 1 %; Eosinophils # (A) 0.3 k/uL (0-0.7); Eosinophils % (A) 5 %; HCT 40.4 % (39.0-53.0); HGB 13.7 gm/dL (13.0-17.5); Lymphocytes # (A) 1.4 k/uL (1.0-4.8); Lymphocytes % (A) 24 %; MCH 30.4 pg (25.0-35.0); MCV 89.4 fL (80.0-100.0); Monocytes # (A) 0.4 k/uL (0-1.0); Monocytes % (A) 7 %; Neutrophils # (A) 3.8 k/uL (1.3-7.7); Neutrophils % (A) 61 %; Platelet Count 144 k/uL (150-450); RBC 4.51 m/uL (4.30-5.90); RDW 12.9 % (11.5-15.5); WBC 6.1 k/uL (3.8-10.6)
[2021-02-23] MEDS: INSULIN ASPART (NovoLOG) 100 UNIT/ML VIAL SQ SCH ×8 (08:33→22:41)
[2021-02-23] MEDS: ASPIRIN 325 MG TAB PO SCH (08:35)
[2021-02-23] MEDS: lamoTRIgine 100 MG TAB PO SCH (08:35)
[2021-02-23] MEDS: ENOXAPARIN 40 MG/0.4 ML SYRINGE SQ SCH (08:35)
[2021-02-23] MEDS: lisinopriL 5 MG TAB PO SCH (08:35)
[2021-02-23] MEDS: CALCIUM CARBONATE 500 MG CHEWABLE PO SCH (08:35)
[2021-02-23] MEDS: MULTIVITAMINS, THERA 1 EACH TAB PO SCH (08:35)
[2021-02-23] MEDS: PANTOPRAZOLE 40 MG/10 ML VIAL IVP SCH (08:36)
[2021-02-23 09:05] LABS: ALT 20 U/L (4-49); AST 36 U/L (17-59); African American GFR (CKD) >90 (>60 ml/min/1.73 sqM); Albumin 3.6 g/dL (3.5-5.0); Albumin/Globulin Ratio 1.5; Alkaline Phosphatase 82 U/L (38-126); Anion Gap 6 mmol/L; Blood Urea Nitrogen 18 mg/dL (9-20); Calcium 9.1 mg/dL (8.4-10.2); Carbon Dioxide 29 mmol/L (22-30); Chloride 103 mmol/L (98-107); Globulin 2.4 g/dL; Glucose 162 mg/dL (74-99); Non-African American GFR(CKD) >90 (>60 ml/min/1.73 sqM); Phosphorus 3.2 mg/dL (2.5-4.5); Sodium 138 mmol/L (137-145); Total Bilirubin 0.3 mg/dL (0.2-1.3)
[2021-02-23 11:45] LABS: Glucose,Whole Blood 133 mg/dL (75-99)
--- NOTE | 2021-02-23 12:49 | ECHOF ---
Referral Reason:TIA MEASUREMENTS -------- HEIGHT: 152.4 cm WEIGHT: 74.8 kg BP: 140/78 IVSd: 1.1 cm (0.6 - 1.1) LVIDd: 3.4 cm (3.9 - 5.3) LVPWd: 1.2 cm (0.6 - 1.1) IVSs: 1.2 cm LVIDs: 3.0 cm LVPWs: 1.3 cm LA Diam: 3.5 cm (2.7 - 3.8) LAESV Index (A-L): 22.82 ml/m Ao Diam: 3.0 cm (2.0 - 3.7) AV Cusp: 1.5 cm (1.5 - 2.6) MV EXCURSION: 19.783 mm (> 18.000) MV EF SLOPE: 97 mm/s (70 - 150) EPSS: 0.2 cm MV E Cristo: 0.39 m/s MV DecT: 222 ms MV A Cristo: 0.96 m/s MV E/A Ratio: 0.41 RAP: 5.00 mmHg RVSP: 21.38 mmHg FINDINGS -------- Sinus rhythm. This was a technically good study. LV size, wall thickness and systolic function are normal, with an EF greater than 55%. The left susan tricular size is normal. The right ventricle is normal in size. Normal LA size by volume 22+/-6 ml/m2. The right atrial size is normal. There is mild aortic valve sclerosis. There is no evidence of aortic regurgitation. Mild mitral regurgitation is present. Mild tricuspid regurgitation present. Right ventricular systolic pressure is normal at < 35 mmHg. There is no pulmonic regurgitation present. The aortic root size is normal. There is no pericardial effusion. CONCLUSIONS -------- 1. LV size, wall thickness and systolic function are normal, with an EF greater than 55%. 2. The left ventricular size is normal. 3. The right ventricle is normal in size. 4. Normal LA size by volume 22+/-6 ml/m2. 5. The right atrial size is normal. 6. There is mild aortic valve sclerosis. 7. Mild mitral regurgitation is present. 8. Mild tricuspid regurgitation present. 9. The aortic root size is normal. 10. There is no pericardial effusion. EXPLORATION ENGINEER: Elvi Schaefer RDCS
--- NOTE | 2021-02-23 16:19 | MR ---
MR brain without contrast HISTORY: TIA Multiplanar multisequence imaging through the brain, comparison to prior exam CT brain 02/21/2021 Cortical atrophy is again noted. There is no restricted diffusion. Periventricular and pericallosal, subcortical confluent and scattered hyperintensities present on inversion recovery T2-weighted sequen germán. Corpus callosum, pituitary, cervicomedullary junction, cerebellopontine angles are unremarkable. Prominence of the ventricles is noted in accordance with the degree of cortical atrophy. Some hyperi ntensity noted within the nuzhat. Mild inflammatory change present within the ethmoid air cells. The or bits show symmetric appearance. There are normal vascular flow voids. There is no evident hemorrhage. IMPRESSION: Age-related changes of atrophy and probable chronic small vessel ischemia. Mild sinus dis ease.
--- NOTE | 2021-02-23 16:50 | P.PN ---
Subjective Progress Note Date: 02/23/21 Patient was seen for a follow-up. Patient offers no new complaints. Patient is sitting in the recliner having lunch. Patient states that he is feeling better just because he has been out of bed. He denies headache. Telemetry monitoring showing sinus rhythm with sinus tachycardia. Objective - Vital Signs Vital signs: Vital Signs Temp 98.4 F 02/23/21 11:59 Pulse 100 02/23/21 11:59 Resp 17 02/23/21 11:59 BP 155/77 02/23/21 11:59 Pulse Ox 95 02/23/21 11:59 Intake & Output 02/22/21 02/23/21 02/23/21 18:59 06:59 18:59 Intake Total 400 300 240 Balance 400 300 240 Weight 78.5 kg 75 kg Intake: Oral 400 300 240 Other: # Voids 2 1 # Bowel Movements 1 - Exam On examination patient is much more alert and awake, in no distress. Speech and language functions are normal. Mentation is improved. Latency time to answer questions has improved. Cranial nerves are normal. Muscle strength is normal. - Labs CBC & Chem 7: 02/23/21 07:07 02/23/21 07:07 Labs: Abnormal Lab Results - Last 24 Hours (Table) 02/22/21 02/22/21 02/23/21 Range/Units 17:04 21:02 07:07 Plt Count (150-450) k/uL Glucose 162 H (74-99) mg/dL POC Glucose (mg/dL) 185 H 225 H (75-99) mg/dL Total Protein 6.0 L (6.3-8.2) g/dL 02/23/21 02/23/21 02/23/21 Range/Units 07:07 07:21 11:32 Plt Count 144 L (150-450) k/uL Glucose (74-99) mg/dL POC Glucose (mg/dL) 176 H 133 H (75-99) mg/dL Total Protein (6.3-8.2) g/dL Assessment and Plan Assessment: * Possible TIA manifesting with transient expressive aphasia. At present patient's NIH stroke scale is 0. Symptoms seems to have resolved. Differential also includes metabolic encephalopathy from reasons mentioned below. * Diabetes poorly controlled, admitted with DKA * Mild renal insufficiency, resolved * Hypertension Plan: * MRI of the brain revealed age-related changes of atrophy and probable chronic small vessel ischemia. Mild sinus disease. No acute stroke. * 2-D echo revealed normal left-ventricular size, wall thickness and systolic function. EF is greater than 55%. Left atrial size is normal. Mild aortic valve sclerosis. * Carotid Doppler showed atherosclerotic plaque with no significant hemodynamic stenosis. * Patient's diabetes is poorly controlled with hemoglobin A1c 8.7. Suggest optimizing control of diabetes to target A1c <7.0. * Fasting lipid panel pending * Lamictal level. B12, folate and TSH, all labs pending. * Continue aspirin 325 mg daily (no antiplatelet medications per his home medication list), Lovenox 40 mg subcu daily and Pravachol 40 mg.
[2021-02-23 17:07] LABS: Glucose,Whole Blood 107 mg/dL (75-99)
[2021-02-23 20:08] LABS: Glucose,Whole Blood 76 mg/dL (75-99)
[2021-02-23 21:24] LABS: Folate, Serum 16.5 ng/mL
[2021-02-23 21:46] VITALS: RESP 16
[2021-02-23] MEDS: AMITRIPTYLINE HCL 50 MG TAB PO SCH (22:06)
[2021-02-23] MEDS: PARoxetine 20 MG TAB PO SCH (22:06)
[2021-02-23] MEDS: PRAVASTATIN SODIUM 40 MG TAB PO SCH (22:07)
[2021-02-23 22:35] LABS: Glucose,Whole Blood 319 mg/dL (75-99)
[2021-02-23] MEDS: INSULIN DETEMIR (LEVEMIR) 100 UNIT/ML SYR SQ SCH (22:41)
[2021-02-24 03:18] LABS: Glucose,Whole Blood 210 mg/dL (75-99)
[2021-02-24 06:22] LABS: Chol/HDL Ratio 3.33; Cholesterol 110 mg/dL (0-200); LDL Cholesterol,Calculated 54.8 mg/dL (0.0-131.0)
[2021-02-24 07:34] LABS: Glucose,Whole Blood 123 mg/dL (75-99)
[2021-02-24] MEDS: PANTOPRAZOLE 40 MG/10 ML VIAL IVP SCH (08:39)
[2021-02-24] MEDS: CALCIUM CARBONATE 500 MG CHEWABLE PO SCH (08:40)
[2021-02-24] MEDS: MULTIVITAMINS, THERA 1 EACH TAB PO SCH (08:40)
[2021-02-24] MEDS: INSULIN ASPART (NovoLOG) 100 UNIT/ML VIAL SQ SCH ×6 (08:40→17:29)
[2021-02-24] MEDS: lamoTRIgine 100 MG TAB PO SCH (08:40)
[2021-02-24] MEDS: lisinopriL 5 MG TAB PO SCH (08:41)
[2021-02-24] MEDS: ASPIRIN 325 MG TAB PO SCH (08:41)
[2021-02-24] MEDS: ENOXAPARIN 40 MG/0.4 ML SYRINGE SQ SCH (08:41)
[2021-02-24] MEDS ORDERED: CYANOCOBALAMIN 1,000 MCG/ML 1 ML VIAL IM SCH (10:30)
--- NOTE | 2021-02-24 11:02 | P.DS ---
Providers Date of admission: 02/20/21 15:57 Expected date of discharge: 02/24/21 Attending physician: Shelley Simons Consults: 02/21/21 20:05 Consult Physician Routine Consulting Provider: Albina Shahid Consult Reason/Comments: Slurred speech Do you want consulting provider notified?: Yes Primary care physician: John Aquino [facility] Course: Discharge diagnosis Diabetic ketoacidosis, patient was started on IV fluid IV insulin drip and electrolyte correction called. Patient has been transitioned home dose of insulin Underlying history of hypertension Underlying history of hyperlipidemia Underlying history of insulin-dependent diabetes mellitus. Hemoglobin A1c 8.7. Sliding scale coverage added to mealtime +7 units of short acting maintain on long-acting insulin 22 units at night Underlying history of depression Expressive aphasia. Head CT was completed showing atrophy with periventricular white matter ischemic type changes. findings appear progressive over the interval. Brain MRI was completed showing age-related changes of atrophy and probable chronic small vessel ischemia mild sinus disease. Carotid Doppler was negative. Patient was evaluated by neurology services no further workup. Symptoms have resolved patient back to baseline Hospital course Thang Key is a 70-year-old male patient of Dr. Aquino who presented to [facility] emergency room due to severe elevation in glucose level. Patient stated that he was having elevated glucose levels his glucometer was reading high he tried to increase his insulin doses but was not able to control his sugar level patient was feeling very tired he was having polydipsia and polyuria and decided to come to emergency room for further treatment. Patient was evaluated in emergency room vital examination on presentation revealed a temperature of 98.1 pulse 121 respiration 18 blood pressure 123/54 pulse ox 100% on room air laboratory data revealed a white blood count of 17.7 hemoglobin 13.2 platelet count 211 sodium 131 potassium 6.2 BUN 33 creatinine 1.48 glucose level on presentation was 798 CO2 level was 11 patient was started on IV fluid, IV insulin drip, and was admitted to telemetry floor for further evaluation and treatment. On 02/22/2021 patient's resting comfortably in bed sleepy but responds to questions still present with expressive aphasia. Patient has been transitioned home medication. Neurology services have been consulted. Head CT was completed. Patient denies chest pain or shortness breath. Patient denies nausea vomiting or diarrhea. Patient denies any urinary burning or frequency. On 02/24/2021 patient is alert and oriented 3. Speech is much improved. Patient was evaluated by neurology and thoroughly worked up MRI negative for subacute stroke. Patient eager to be discharged home. A1c was 8.7. Patient to continue current home medication dose with the addition of sliding scale coverage with mealtime. Lisinopril also increased for elevated blood pressure. Patient follow-up with PCP for further management and medication adjustments. At this time patient denies chest pain or shortness breath. Patient denies nausea vomiting or diarrhea. Patient denies any urinary burning or frequency. Patient Condition at Discharge: Stable Plan - Discharge Summary New Discharge Prescriptions: New INSULIN ASPART (NovoLOG) [NovoLOG (formulary)] 0 unit SQ ACHS vial lisinopriL [Zestril] 5 mg PO DAILY 30 Days #30 tab Continue lamoTRIgine 400 mg PO DAILY Multivitamin [Men's Multi-Vitamin] 1 tab PO DAILY Insulin Glargine [Lantus] 22 units SQ HS Amitriptyline HCl [Elavil] 50 mg PO HS Aspirin EC [Ecotrin] 325 mg PO DAILY INSULIN ASPART (NovoLOG) [NovoLOG (formulary)] 7 unit SQ AC-TID Pravastatin Sodium [Pravachol] 40 mg PO HS PARoxetine HCL [Paxil] 40 mg PO HS Calcium Carbonate [Calcium] 600 mg PO DAILY Discontinued Enalapril [Vasotec] 2.5 mg PO DAILY Discharge Medication List Amitriptyline HCl [Elavil] 50 mg PO HS 03/28/14 [History] Insulin Glargine [Lantus] 22 units SQ HS 03/28/14 [History] Multivitamin [Men's Multi-Vitamin] 1 tab PO DAILY 03/28/14 [History] lamoTRIgine 400 mg PO DAILY 03/28/14 [History] Aspirin EC [Ecotrin] 325 mg PO DAILY 04/09/16 [History] INSULIN ASPART (NovoLOG) [NovoLOG (formulary)] 7 unit SQ AC-TID 06/29/20 [History] PARoxetine HCL [Paxil] 40 mg PO HS 06/29/20 [History] Pravastatin Sodium [Pravachol] 40 mg PO HS 06/29/20 [History] Calcium Carbonate [Calcium] 600 mg PO DAILY 02/20/21 [History] INSULIN ASPART (NovoLOG) [NovoLOG (formulary)] 0 unit SQ ACHS vial 02/24/21 [Rx] lisinopriL [Zestril] 5 mg PO DAILY 30 Days #30 tab 02/24/21 [Rx] Follow up Appointment(s)/Referral(s): John Aquino MD [Primary Care Provider] - 1-2 days Activity/Diet/Wound Care/Special Instructions: Activity as tolerated Diet consistent carb Discharge Disposition: HOME SELF-CARE
[2021-02-24 12:21] LABS: Glucose,Whole Blood 67 mg/dL (75-99)
[2021-02-24 13:31] VITALS: BP 116/66; PULSE 91; TEMP 98.1
[2021-02-24 14:14] LABS: Glucose,Whole Blood 202 mg/dL (75-99)
--- NOTE | 2021-02-24 15:52 | P.PN ---
Subjective Progress Note Date: 02/24/21 Patient was seen for a follow-up. Patient is laying in the bed comfortably. No distress. Patient offers no new complaints. Objective - Vital Signs Vital signs: Vital Signs Temp 98.1 F 02/24/21 12:16 Pulse 91 02/24/21 12:16 Resp 16 02/24/21 12:16 BP 116/66 02/24/21 12:16 Pulse Ox 95 02/24/21 12:16 Intake & Output 02/23/21 02/24/21 02/24/21 18:59 06:59 18:59 Intake Total 240 590 Output Total 400 Balance 240 590 -400 Weight 77 kg Intake: Oral 240 590 Output: Urine 400 Other: Voiding Method Toilet # Voids 1 3 # Bowel Movements 1 1 - Exam Patient is an elderly male, in no distress. Patient is slightly sleepy, but easily arousable, then becomes awake oriented to time place and person. Often keeps his eyes closed. Speech and language functions are normal. Attention, concentration and fund of knowledge is adequate. On cranial examination, pupils are round and reacting to light, visual north ar e full on confrontation, extraocular muscles are intact with no nystagmus. Face is symmetric, tongue protrudes to the midline. Palatal elevation and sensation normal, hearing and shoulder shrug normal, facial sensation normal. Shoulder shrug normal. On muscle strength testing, there is no pronator drift and the strength is normal in arms and legs distally and proximally, except left deltoid and triceps, which are 5-due to guarding from pain in the left shoulder. Deep tendon reflexes are (right/left) biceps 3/2, brachioradialis 3/2, knee 2/2, ankles 1/1 and plantars downgoing bilaterally. Sensory to touch is equal with no neglect. Cerebellar function showed no ataxia for [id number] testing. No dysdiadochokinesia. Tone and bulk of muscles normal. Gait deferred. On general examination, there is no carotid bruit or murmur, S1-S2 audible. Abdomen is soft nontender. Chest is clear. Peripheral pulses are present. No edema. - Labs CBC & Chem 7: 02/23/21 07:07 02/23/21 07:07 Labs: Abnormal Lab Results - Last 24 Hours (Table) 02/23/21 02/23/2121 Range/Units 07:07 17:05 22:34 POC Glucose (mg/dL) 107 H 319 H (75-99) mg/dL HDL Cholesterol 33.0 L (40.0-60.0) mg/dL 02/24/21 02/24/21 02/24/21 Range/Units 03:17 07:31 12:17 POC Glucose (mg/dL) 210 H 123 H 67 L (75-99) mg/dL HDL Cholesterol (40.0-60.0) mg/dL 02/24/21 Range/Units 14:10 POC Glucose (mg/dL) 202 H (75-99) mg/dL HDL Cholesterol (40.0-60.0) mg/dL Assessment and Plan Assessment: * Possible TIA manifesting with transient expressive aphasia. At present patient's NIH stroke scale is 0. Symptoms seems to have resolved. Differe ntial also includes metabolic encephalopathy from reasons mentioned below. * Diabetes poorly controlled, admitted with DKA * Mild renal insufficiency, resolved * Hypertension Plan: * MRI of the brain revealed age-related changes of atrophy and probable chronic small vessel ischemia. Mild sinus disease. No acute stroke. * 2-D echo revealed normal left-ventricular size, wall thickness and systolic function. EF is greater than 55%. Left atrial size is normal. Mild aortic valve sclerosis. * Carotid Doppler showed atherosclerotic plaque with no significant hemodynamic stenosis. * Patient's diabetes is poorly controlled with hemoglobin A1c 8.7. Suggest optimizing control of diabetes to target A1c <7.0. * Fasting lipid panel pending * Lamictal level 5.7 (2-15). B12 260, folate 16.5 and TSH 2.35, hemoglobin A1c 8.7. Suggest optimize diabetes to target A1c <7.0. * Lipid panel with cholesterol 110, LDL 54.8, HDL 33 and triglycerides 111. * Continue aspirin 325 mg daily (no antiplatelet medications per his home medication list), Lovenox 40 mg subcu daily and Pravachol 40 mg. 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 When his blood sugars goes down around 20, then he ends up with a convulsion. Lamictal helps. He states that the last time he had convulsion was about couple months ago. * Neurologically clear for discharge. We will sign off.
[2021-02-24 17:27] LABS: Glucose,Whole Blood 293 mg/dL (75-99)
== END 2021-02-24 18:18 | disposition home or self-care (01) | DRG 638 ==
LOC: EC 14:30 → 3SCARD 15:57 → 4SSUR 02-21 19:46 → 5NMEDONC 02-21 22:41
PROVIDERS: ADMIT Internal Medicine; ATTEND Internal Medicine
DX: E11.10 Type 2 diabetes mellitus with ketoacidosis without coma (principal); R47.01 Aphasia; E78.5 Hyperlipidemia, unspecified; G40.909 Epilepsy, unspecified, not intractable, without status epilepticus; I10 Essential (primary) hypertension; I45.4 Nonspecific intraventricular block; N28.9 Disorder of kidney and ureter, unspecified; Z79.4 Long term (current) use of insulin; Z79.82 Long term (current) use of aspirin; Z79.899 Other long term (current) drug therapy; Z20.822 Contact with and (suspected) exposure to COVID-19; Z80.0 Family history of malignant neoplasm of digestive organs; Z83.3 Family history of diabetes mellitus; H43.399 Other vitreous opacities, unspecified eye; R00.0 Tachycardia, unspecified; Z82.0 Family history of epilepsy and other diseases of the nervous system; Z96.652 Presence of left artificial knee joint; Z98.890 Other specified postprocedural states; Z98.42 Cataract extraction status, left eye; Z98.41 Cataract extraction status, right eye; Z88.0 Allergy status to penicillin
CPT/HCPCS: 36415; 70450; 70551; 71046; 80051; 80053; 80061; 80175; 81003; 82009; 82565; 82607; 82746; 82947; 83036; 83735; 83930; 84100; 84443; 84484; 84520; 85025; 87635; 93005; 93306; 93880; 96360; 96372; 99291

== ENCOUNTER 2022-07-26 14:39 | Inpatient (IN) | payer MEDICARE ==
[2022-07-26] MEDS ORDERED: SODIUM CHLORIDE 0.9% 1,000 ML IV STA (19:05)
[2022-07-26] MEDS ORDERED: SODIUM CHLORIDE 0.9% 500 ML 500 ML IV STA (19:05)
--- NOTE | 2022-07-26 19:08 | ED ---
Male Urogenital HPI - General Chief complaint: Urogenital Stated complaint: hematuria, weakness Time Seen by Provider: 07/26/22 18:42 Source: patient, family, EMS, RN notes reviewed Mode of arrival: wheelchair Limitations: no limitations - History of Present Illness Initial comments: 70-year-old male presents with family with complaints of hematuria that started about 2 days ago he did have a low-grade temperature today of 100 at home. He's had difficulty urinating she has some right flank pain additionally he's had some recent falls he did have some bruising and is resolving over the right flank area. No nausea no vomiting no chest pain shortness breath or other complains or modifying factors - Related Data Home Medications Medication Instructions Recorded Confirmed Amitriptyline HCl [Elavil] 50 mg PO HS 03/28/14 02/20/21 Insulin Glargine [Lantus Vial] 22 units SQ HS 03/28/14 02/20/21 Multivitamin [Men's Multi-Vitamin] 1 tab PO DAILY 03/28/14 02/20/21 lamoTRIgine 400 mg PO DAILY 03/28/14 02/20/21 Aspirin EC [Ecotrin] 325 mg PO DAILY 04/09/16 02/20/21 INSULIN ASPART (NovoLOG) [NovoLOG 7 unit SQ AC-TID 06/29/20 02/20/21 (formulary)] PARoxetine HCL [Paxil] 40 mg PO HS 06/29/20 02/20/21 Pravastatin Sodium [Pravachol] 40 mg PO HS 06/29/20 02/20/21 Calcium Carbonate [Calcium] 600 mg PO DAILY 02/20/21 02/20/21 Previous Rx's Medication Instructions Recorded INSULIN ASPART (NovoLOG) [NovoLOG 0 unit SQ ACHS vial 02/24/21 (formulary)] lisinopriL [Zestril] 5 mg PO DAILY 30 Days #30 tab 02/24/21 Allergies Allergy/AdvReac Type Severity Reaction Status Date / Time Penicillins Allergy Rash/Hives Verified 07/26/22 14:54 Review of Systems ROS Statement: Those systems with pertinent positive or pertinent negative responses have been documented in the HPI. ROS Other: All systems not noted in ROS Statement are negative. Past Medical History Past Medical History: Diabetes Mellitus, Eye Disorder, Hypertension, Seizure Disorder Additional Past Medical History / Comment(s): encephalopathy; RASH LEFT ANKLE,VARICOSE VEINS,EYE FLOATERS,TREMORS,SEIZURES WITH LOW BLOOD SUGAR-LAST SEIZURE APPROX JUN 2015 History of Any Multi-Drug Resistant Organisms: None Reported Past Surgical History: Orthopedic Surgery Additional Past Surgical History / Comment(s): cataracts bilateral. total left knee. left index finger thea placement Past Anesthesia/Blood Transfusion Reactions: No Reported Reaction Past Psychological History: No Psychological Hx Reported Smoking Status: Never smoker Past Alcohol Use History: None Reported Past Drug Use History: None Reported - Past Family History Brother(s) Family Medical History: Diabetes Mellitus Sister(s) Family Medical History: Diabetes Mellitus Additional Family Medical History / Comment(s): MS Father Family Medical History: Cancer, Diabetes Mellitus Additional Family Medical History / Comment(s): [place] General Exam - General Exam Comments Initial Comments: Is a well-developed well-nourished awake alert male Limitations: no limitations General appearance: alert, in no apparent distress Head exam: Present: atraumatic, normocephalic, normal inspection Eye exam: Present: normal appearance, PERRL, EOMI. Absent: scleral icterus, conjunctival injection, periorbital swelling ENT exam: Present: mucous membranes dry Neck exam: Present: normal inspection, full ROM, other (No stridor JVD or bruits). Absent: tenderness, meningismus, lymphadenopathy Respiratory exam: Present: normal lung sounds bilaterally. Absent: respiratory distress, wheezes, rales, rhonchi, stridor Cardiovascular Exam: Present: regular rate, normal rhythm, normal heart sounds. Absent: systolic murmur, diastolic murmur, rubs, gallop, clicks GI/Abdominal exam: Present: soft, normal bowel sounds. Absent: distended, tenderness, guarding, rebound, rigid, bruit, pulsatile mass Rectal exam: Present: deferred exam: Present: normal inspection Extremities exam: Present: full ROM, normal capillary refill, other (Some eryt aníbal seen over the left lower extremity with some increased localized temperature however the patient's believes it's per his normal.). Absent: tenderness, pedal edema, joint swelling, calf tenderness Back exam: Present: normal inspection Neurological exam: Present: alert, oriented X3, CN II-XII intact Psychiatric exam: Present: normal affect, normal mood Skin exam: Present: warm, dry, intact. Absent: rash Course Vital Signs 07/26/22 14:51 Temperature 99.8 F H Pulse Rate 99 Respiratory 14 Rate Blood Pressure 124/70 O2 Sat by Pulse 98 Oximetry Medical Decision Making - Medical Decision Making I did discuss findings with the patient and family as well as Dr. Simons. He will be admitted for IV antibiotics IV fluids at this time the fluids will be given with slight scale insulin coverage. - Lab Data Result diagrams: 07/26/22 19:33 07/26/22 19:33 Lab Results 07/26/22 07/26/22 07/26/22 Range/Units 18:56 19:23 19:31 WBC (3.8-10.6) k/uL RBC (4.30-5.90) m/uL Hgb (13.0-17.5) gm/dL Hct (39.0-53.0) % MCV (80.0-100.0) fL MCH (25.0-35.0) pg MCHC (31.0-37.0) g/dL RDW (11.5-15.5) % Plt Count (150-450) k/uL MPV Neutrophils % % Lymphocytes % % Monocytes % % Eosinophils % % Basophils % % Neutrophils # (1.3-7.7) k/uL Lymphocytes # (1.0-4.8) k/uL Monocytes # (0-1.0) k/uL Eosinophils # (0-0.7) k/uL Basophils # (0-0.2) k/uL Sodium (137-145) mmol/L Potassium (3.5-5.1) mmol/L Chloride (98-107) mmol/L Carbon Dioxide (22-30) mmol/L Anion Gap mmol/L BUN (9-20) mg/dL Creatinine (0.66-1.25) mg/dL Est GFR (CKD-EPI)AfAm (>60 ml/min/1.73 sqM) Est GFR (CKD-EPI)NonAf (>60 ml/min/1.73 sqM) Glucose (74-99) mg/dL Plasma Lactic Acid Ramin 1.0 (0.7-2.0) mmol/L Calcium (8.4-10.2) mg/dL Magnesium (1.6-2.3) mg/dL Total Bilirubin (0.2-1.3) mg/dL AST (17-59) U/L ALT (4-49) U/L Alkaline Phosphatase (38-126) U/L Creatine Kinase (55-170) U/L Troponin I (0.000-0.034) ng/mL Total Protein (6.3-8.2) g/dL Albumin (3.5-5.0) g/dL Urine Color Yellow Urine Appearance Clear (Clear) Urine pH 6.5 (5.0-8.0) Ur Specific [place] 1.025 (1.001-1.035) Urine Protein 1+ H (Negative) Urine Glucose (UA) 3+ H (Negative) Urine Ketones 2+ H (Negative) Urine Blood Moderate H (Negative) Urine Nitrite Negative (Negative) Urine Bilirubin Negative (Negative) Urine Urobilinogen 3.0 (<2.0) mg/dL Ur Leukocyte Esterase Moderate H (Negative) Urine RBC 87 H (0-5) /hpf Urine WBC 39 H (0-5) /hpf Urine Bacteria Rare H (None) /hpf Urine Mucus Rare H (None) /hpf Coronavirus (PCR) Not Detected (Not Detectd) 07/26/22 07/26/22 07/26/22 Range/Units 19:33 19:33 19:33 WBC 14.2 H (3.8-10.6) k/uL RBC 4.15 L (4.30-5.90) m/uL Hgb 12.5 L (13.0-17.5) gm/dL Hct 38.1 L (39.0-53.0) % MCV 91.8 (80.0-100.0) fL MCH 30.0 (25.0-35.0) pg MCHC 32.7 (31.0-37.0) g/dL RDW 13.1 (11.5-15.5) % Plt Count 200 (150-450) k/uL MPV 8.8 Neutrophils % 84 % Lymphocytes % 8 % Monocytes % 5 % Eosinophils % 1 % Basophils % 0 % Neutrophils # 11.9 H (1.3-7.7) k/uL Lymphocytes # 1.1 (1.0-4.8) k/uL Monocytes # 0.8 (0-1.0) k/uL Eosinophils # 0.1 (0-0.7) k/uL Basophils # 0.0 (0-0.2) k/uL Sodium 136 L (137-145) mmol/L Potassium 4.7 (3.5-5.1) mmol/L Chloride 97 L (98-107) mmol/L Carbon Dioxide 28 (22-30) mmol/L Anion Gap 11 mmol/L BUN 27 H (9-20) mg/dL Creatinine 0.95 (0.66-1.25) mg/dL Est GFR (CKD-EPI)AfAm >90 (>60 ml/min/1.73 sqM) Est GFR (CKD-EPI)NonAf 82 (>60 ml/min/1.73 sqM) Glucose 345 H (74-99) mg/dL Plasma Lactic Acid Ramin (0.7-2.0) mmol/L Calcium 8.9 (8.4-10.2) mg/dL Magnesium 2.1 (1.6-2.3) mg/dL Total Bilirubin 1.0 (0.2-1.3) mg/dL AST 26 (17-59) U/L ALT 23 (4-49) U/L Alkaline Phosphatase 90 (38-126) U/L Creatine Kinase 101 (55-170) U/L Troponin I <0.012 (0.000-0.034) ng/mL Total Protein 6.6 (6.3-8.2) g/dL Albumin 4.3 (3.5-5.0) g/dL Urine Color Urine Appearance (Clear) Urine pH (5.0-8.0) Ur Specific [place] (1.001-1.035) Urine Protein (Negative) Urine Glucose (UA) (Negative) Urine Ketones (Negative) Urine Blood (Negative) Urine Nitrite (Negative) Urine Bilirubin (Negative) Urine Urobilinogen (<2.0) mg/dL Ur Leukocyte Esterase (Negative) Urine RBC (0-5) /hpf Urine WBC (0-5) /hpf Urine Bacteria (None) /hpf Urine Mucus (None) /hpf Coronavirus (PCR) (Not Detectd) - EKG Data -: EKG Interpreted by Me EKG Comments: Fact present but sinus rhythm 90 96 bpm OR interval 159 QRS duration 100 QT since QTC 338/392 nonspecific T-wave configuration this was read by any. - Radiology Data Radiology results: report reviewed (I did review the imaging CAT scan shows evidence of fecal impaction no definitive bladder pathology the bladder is pushed forward due to the impaction. No evidence of hydronephrosis or ureter. No definitive kidney stone seen. Additionally chest x-ray does show evidence of limited bilateral lower ), image reviewed Disposition Clinical Impression: Pneumonia, Febrile illness, acute, Dehydration, Hyperglycemia, Fecal impaction in rectum Disposition: ADMITTED IP TO THIS HOSP Condition: Fair Referrals: John Aquino MD [Primary Care Provider] - 1-2 days Decision Date: 07/26/22 Decision Time: 20:30
[2022-07-26 19:14] LABS: Appearance,Urine Clear (Clear); Bacteria,Urine Rare /hpf; Bilirubin,Urine Negative (Negative); Blood,Urine Moderate (Negative); Color,Urine Yellow; Glucose,Urine (UA) 3+ (Negative); Leukocyte Esterase,Urine Moderate (Negative); Mucus,Urine Rare /hpf; Nitrite,Urine Negative (Negative); PH, Urine 6.5 (5.0-8.0); Protein,Urine 1+ (Negative); RBC,Urine 87 /hpf (0-5); Specific Gravity,Urine 1.025 (1.001-1.035); WBC,Urine 39 /hpf (0-5)
[2022-07-26 19:22] LABS: Ketones,Urine 2+ (Negative)
[2022-07-26 19:49] LABS: Basophils % (A) 0 %; Eosinophils # (A) 0.1 k/uL (0-0.7); Eosinophils % (A) 1 %; HCT 38.1 % (39.0-53.0); HGB 12.5 gm/dL (13.0-17.5); Lymphocytes # (A) 1.1 k/uL (1.0-4.8); Lymphocytes % (A) 8 %; MCHC 32.7 g/dL (31.0-37.0); MCV 91.8 fL (80.0-100.0); Mean Platelet Volume 8.8; Monocytes # (A) 0.8 k/uL (0-1.0); Monocytes % (A) 5 %; Neutrophils # (A) 11.9 k/uL (1.3-7.7); Neutrophils % (A) 84 %; Platelet Count 200 k/uL (150-450); RBC 4.15 m/uL (4.30-5.90); RDW 13.1 % (11.5-15.5); WBC 14.2 k/uL (3.8-10.6)
[2022-07-26 19:52] LABS: ALT 23 U/L (4-49); AST 26 U/L (17-59); African American GFR (CKD) >90 (>60 ml/min/1.73 sqM); Albumin 4.3 g/dL (3.5-5.0); Alkaline Phosphatase 90 U/L (38-126); Anion Gap 11 mmol/L; Blood Urea Nitrogen 27 mg/dL (9-20); Calcium 8.9 mg/dL (8.4-10.2); Carbon Dioxide 28 mmol/L (22-30); Chloride 97 mmol/L (98-107); Creatine Kinase 101 U/L (55-170); Glucose 345 mg/dL (74-99); Magnesium 2.1 mg/dL (1.6-2.3); Non-African American GFR(CKD) 82 (>60 ml/min/1.73 sqM); Potassium 4.7 mmol/L (3.5-5.1); Sodium 136 mmol/L (137-145); Total Protein 6.6 g/dL (6.3-8.2)
--- NOTE | 2022-07-26 20:27 | CT ---
EXAMINATION TYPE: CT abdomen pelvis wo con DATE OF EXAM: 07/26/2022 COMPARISON: None HISTORY: Hematuria, right flank pain kidney stone suspected CT DLP: 881.2 mGycm Automated exposure control for dose reduction was used. Images obtained from the diaphragm to the floor the pelvis with no contrast. The lung bases show some mild interstitial infiltrate and atelectasis. Heart size is normal. No peric ardial effusion. No pleural effusion. Liver and spleen are intact. The bowel is not dilated. Spleen is enlarged and measures 14.5 cm. There is no evidence of pancreatic mass. The stomach is intact. There is no adrenal mass. Kidneys of normal size and contour. No hydronephrosis. Ureters are not dila birgit. There is markedly dilated rectum with fecal material. Rectum measures 9 cm. No inguinal hernia. No free fluid in the pelvis. Appendix is inferior and appears normal. There is no ascites. There is increased density in the deep gallbladder that could be numerous calcif ied gallstones. The lumbar vertebrae are normal alignment. No significant compression deformity. There is 20% anterio r wedging of T12 vertebra which appears old. The bony pelvis is intact. The hip joints are intact. No evidence of a bladder mass. Bladder is displaced anteriorly due to the dilated rectum. IMPRESSION: Rectal fecal impaction. Normal appendix. No renal stone or obstruction. There is probably numerous calcified gallstones. Splenomegaly. Minimal scarring and atelectasis at th e lung bases.
[2022-07-26] MEDS ORDERED: cefTRIAXone IN SWFI 1,000 MG/10 ML SYRINGE IVP STA (20:37)
[2022-07-26] MEDS ORDERED: AZITHROMYCIN 500 MG in SODIUM CHLORIDE 0.9% 250 ML IVPB STA (20:38)
[2022-07-26] MEDS ORDERED: PNEUMONIA PROTOCOL UTILIZED 1 EACH MISC PO PRN (20:46)
--- NOTE | 2022-07-26 20:46 | XR ---
EXAMINATION TYPE: XR chest 2V DATE OF EXAM: 07/26/2022 COMPARISON: NONE HISTORY: Weakness TECHNIQUE: 2 views FINDINGS: Heart is normal. Lungs are clear of infiltrate. No heart failure. There is some osteoarthri tis right shoulder joint. No pleural effusion. IMPRESSION: No active cardiopulmonary disease. Inspiration decreased compared to old exam.
[2022-07-26] MEDS ORDERED: DEXTROSE 50% SYRINGE 50 ML IVP PRN (20:49)
--- NOTE | 2022-07-26 20:51 | ED ---
Medical Decision Making - Lab Data Result diagrams: 07/26/22 19:33 07/26/22 19:33 Lab Results 07/26/22 07/26/22 07/26/22 Range/Units 18:56 19:23 19:31 WBC (3.8-10.6) k/uL RBC (4.30-5.90) m/uL Hgb (13.0-17.5) gm/dL Hct (39.0-53.0) % MCV (80.0-100.0) fL MCH (25.0-35.0) pg MCHC (31.0-37.0) g/dL RDW (11.5-15.5) % Plt Count (150-450) k/uL MPV Neutrophils % % Lymphocytes % % Monocytes % % Eosinophils % % Basophils % % Neutrophils # (1.3-7.7) k/uL Lymphocytes # (1.0-4.8) k/uL Monocytes # (0-1.0) k/uL Eosinophils # (0-0.7) k/uL Basophils # (0-0.2) k/uL Sodium (137-145) mmol/L Potassium (3.5-5.1) mmol/L Chloride (98-107) mmol/L Carbon Dioxide (22-30) mmol/L Anion Gap mmol/L BUN (9-20) mg/dL Creatinine (0.66-1.25) mg/dL Est GFR (CKD-EPI)AfAm (>60 ml/min/1.73 sqM) Est GFR (CKD-EPI)NonAf (>60 ml/min/1.73 sqM) Glucose (74-99) mg/dL Plasma Lactic Acid Ramin 1.0 (0.7-2.0) mmol/L Calcium (8.4-10.2) mg/dL Magnesium (1.6-2.3) mg/dL Total Bilirubin (0.2-1.3) mg/dL AST (17-59) U/L ALT (4-49) U/L Alkaline Phosphatase (38-126) U/L Creatine Kinase (55-170) U/L Troponin I (0.000-0.034) ng/mL Total Protein (6.3-8.2) g/dL Albumin (3.5-5.0) g/dL Urine Color Yellow Urine Appearance Clear (Clear) Urine pH 6.5 (5.0-8.0) Ur Specific [place] 1.025 (1.001-1.035) Urine Protein 1+ H (Negative) Urine Glucose (UA) 3+ H (Negative) Urine Ketones 2+ H (Negative) Urine Blood Moderate H (Negative) Urine Nitrite Negative (Negative) Urine Bilirubin Negative (Negative) Urine Urobilinogen 3.0 (<2.0) mg/dL Ur Leukocyte Esterase Moderate H (Negative) Urine RBC 87 H (0-5) /hpf Urine WBC 39 H (0-5) /hpf Urine Bacteria Rare H (None) /hpf Urine Mucus Rare H (None) /hpf Coronavirus (PCR) Not Detected (Not Detectd) 07/26/22 07/26/22 07/26/22 Range/Units 19:33 19:33 19:33 WBC 14.2 H (3.8-10.6) k/uL RBC 4.15 L (4.30-5.90) m/uL Hgb 12.5 L (13.0-17.5) gm/dL Hct 38.1 L (39.0-53.0) % MCV 91.8 (80.0-100.0) fL MCH 30.0 (25.0-35.0) pg MCHC 32.7 (31.0-37.0) g/dL RDW 13.1 (11.5-15.5) % Plt Count 200 (150-450) k/uL MPV 8.8 Neutrophils % 84 % Lymphocytes % 8 % Monocytes % 5 % Eosinophils % 1 % Basophils % 0 % Neutrophils # 11.9 H (1.3-7.7) k/uL Lymphocytes # 1.1 (1.0-4.8) k/uL Monocytes # 0.8 (0-1.0) k/uL Eosinophils # 0.1 (0-0.7) k/uL Basophils # 0.0 (0-0.2) k/uL Sodium 136 L (137-145) mmol/L Potassium 4.7 (3.5-5.1) mmol/L Chloride 97 L (98-107) mmol/L Carbon Dioxide 28 (22-30) mmol/L Anion Gap 11 mmol/L BUN 27 H (9-20) mg/dL Creatinine 0.95 (0.66-1.25) mg/dL Est GFR (CKD-EPI)AfAm >90 (>60 ml/min/1.73 sqM) Est GFR (CKD-EPI)NonAf 82 (>60 ml/min/1.73 sqM) Glucose 345 H (74-99) mg/dL Plasma Lactic Acid Ramin (0.7-2.0) mmol/L Calcium 8.9 (8.4-10.2) mg/dL Magnesium 2.1 (1.6-2.3) mg/dL Total Bilirubin 1.0 (0.2-1.3) mg/dL AST 26 (17-59) U/L ALT 23 (4-49) U/L Alkaline Phosphatase 90 (38-126) U/L Creatine Kinase 101 (55-170) U/L Troponin I <0.012 (0.000-0.034) ng/mL Total Protein 6.6 (6.3-8.2) g/dL Albumin 4.3 (3.5-5.0) g/dL Urine Color Urine Appearance (Clear) Urine pH (5.0-8.0) Ur Specific [place] (1.001-1.035) Urine Protein (Negative) Urine Glucose (UA) (Negative) Urine Ketones (Negative) Urine Blood (Negative) Urine Nitrite (Negative) Urine Bilirubin (Negative) Urine Urobilinogen (<2.0) mg/dL Ur Leukocyte Esterase (Negative) Urine RBC (0-5) /hpf Urine WBC (0-5) /hpf Urine Bacteria (None) /hpf Urine Mucus (None) /hpf Coronavirus (PCR) (Not Detectd) Disposition Clinical Impression: Pneumonia, Febrile illness, acute, Dehydration, Hyperglycemia, Fecal impaction in rectum, Hematuria Disposition: ADMITTED IP TO THIS HOSP Condition: Fair Referrals: John Aquino MD [Primary Care Provider] - 1-2 days
[2022-07-26] MEDS ORDERED: PARoxetine 20 MG TAB PO SCH (21:00)
[2022-07-26 22:51] LABS: Glucose,Whole Blood 337 mg/dL (70-110)
[2022-07-26] MEDS: lamoTRIgine 100 MG TAB PO SCH (23:13)
[2022-07-26] MEDS: PRAVASTATIN SODIUM 40 MG TAB PO SCH (23:13)
[2022-07-26] MEDS: INSULIN DETEMIR (LEVEMIR) 100 UNIT/ML SYR SQ SCH (23:13)
[2022-07-26] MEDS: AMITRIPTYLINE HCL 50 MG TAB PO SCH (23:14)
[2022-07-27] MEDS: SODIUM CHLORIDE 0.9% 1,000 ML IV SCH ×3 (04:52→20:41)
[2022-07-27 06:11] LABS: Glucose,Whole Blood 282 mg/dL (70-110)
--- NOTE | 2022-07-27 07:19 | XR ---
EXAMINATION TYPE: XR chest 2V DATE OF EXAM: 07/27/2022 6:27 AM COMPARISON: Chest radiograph from one day prior. TECHNIQUE: XR chest 2V Frontal and lateral views of the chest. CLINICAL INDICATION:Male, 71 years old with history of pneumonia; FINDINGS: Lungs/Pleura: There is no evidence of pleural effusion, focal consolidation, or pneumothorax. Pulmonary vascularity: Unremarkable. Heart/mediastinum: Cardiomediastinal silhouette is unremarkable. Musculoskeletal: Degenerative changes of the shoulder joints. IMPRESSION: No acute cardiopulmonary disease/process.
[2022-07-27] MEDS: INSULIN ASPART (NovoLOG) 100 UNIT/ML VIAL SQ SCH ×3 (07:30→17:29)
[2022-07-27] MEDS ORDERED: AZITHROMYCIN 500 MG TAB PO SCH (09:00)
[2022-07-27] MEDS: lamoTRIgine 100 MG TAB PO SCH ×2 (10:05→21:13)
[2022-07-27] MEDS: CALCIUM CARBONATE 500 MG CHEWABLE PO SCH (10:05)
[2022-07-27] MEDS: lisinopriL 5 MG TAB PO SCH (10:06)
[2022-07-27] MEDS: MULTIVITAMINS, THERA 1 EACH TAB PO SCH (10:06)
[2022-07-27] MEDS: PARoxetine 20 MG TAB PO SCH (10:08)
[2022-07-27] MEDS ORDERED: NA PHOS,M-B/NA PHOS,DI-BA 133 ML ENEMA RECTAL ONE (10:18)
--- NOTE | 2022-07-27 10:27 | P.HPIM ---
History of Present Illness H&P Date: 07/27/22 Chief Complaint: Dehydration fecal impaction This is 71-year-old male patient who presents to the ER with complaints of hematuria starting about 2 days ago. According to ER records patient had difficulty urinating with some right flank pain with a low-grade temperature. Patient has past medical history of diabetes mellitus, high disorder, hypertension, seizure disorder, encephalopathy. CT of abdomen and pelvis completed without contrast showing rectal fecal impaction normal appendix. Chest x-ray completed showing no active cardiopulmonary disease. Inspiration decreased compared to old exam. COVID-19 negative. UA positive for urinary tract infection. White blood cell elevated at 14.2. Vital signs temp 99.8, pulse rate 99, respiratory rate 14, blood pressure 124/70 with a pulse ox 98% room air. Patient has been started on IV antibiotics. Urine blood and sputum cultures ordered. This time patient is resting comfortably in bed. Patient is alert and oriented 2. Patient denies chest pain or shortness breath. Patient denies nausea vomiting or diarrhea. Patient denies any urinary burning or frequency Review of Systems Please refer to HPI otherwise unremarkable Past Medical History Past Medical History: Diabetes Mellitus, Eye Disorder, Hypertension, Seizure Disorder Additional Past Medical History / Comment(s): encephalopathy; RASH LEFT ANKLE,VARICOSE VEINS,EYE FLOATERS,TREMORS,SEIZURES WITH LOW BLOOD SUGAR-LAST SEIZURE APPROX JUN 2015 History of Any Multi-Drug Resistant Organisms: None Reported Past Surgical History: Orthopedic Surgery Additional Past Surgical History / Comment(s): cataracts bilateral. total left knee. left index finger thea placement Past Anesthesia/Blood Transfusion Reactions: No Reported Reaction Past Psychological History: No Psychological Hx Reported Smoking Status: Never smoker Past Alcohol Use History: None Reported Additional Past Alcohol Use History / Comment(s): QUIT SMOKING 1974,STARTED 1973 Past Drug Use History: None Reported - Past Family History Brother(s) Family Medical History: Diabetes Mellitus Sister(s) Family Medical History: Diabetes Mellitus Additional Family Medical History / Comment(s): MS Father Family Medical History: Cancer, Diabetes Mellitus Additional Family Medical History / Comment(s): COLON CA Medications and Allergies Home Medications Medication Instructions Recorded Confirmed Type Amitriptyline HCl [Elavil] 50 mg PO HS 03/28/14 07/26/22 History Insulin Glargine [Lantus Vial] 22 units SQ HS 03/28/14 07/26/22 History Multivitamin [Men's Multi-Vitamin] 1 tab PO W/SUPPER 03/28/14 07/26/22 History lamoTRIgine 200 mg PO BID-W/MEALS 03/28/14 07/26/22 History Aspirin EC [Ecotrin] 325 mg PO W/SUPPER 04/09/16 07/26/22 History Pravastatin Sodium [Pravachol] 40 mg PO HS 06/29/20 07/26/22 History Calcium Carbonate [Calcium] 600 mg PO DAILY 02/20/21 07/26/22 History lisinopriL [Zestril] 5 mg PO DAILY 30 Days #30 tab 02/24/21 07/26/22 Rx INSULIN ASPART (NovoLOG) [NovoLOG See Protocol SQ AC-TID 07/26/22 07/26/22 History (formulary)] PARoxetine HCL [Paxil] 20 mg PO DAILY 07/26/22 07/26/22 History Allergies Allergy/AdvReac Type Severity Reaction Status Date / Time Penicillins Allergy Rash/Hives Verified 07/26/22 14:54 Physical Exam Vitals: Vital Signs Temp Pulse Pulse Resp BP BP Pulse Ox 07/27/22 01:30 98.7 F 96 18 129/68 92 L 07/26/22 23:29 97.8 F 99 18 141/62 95 07/26/22 14:51 99.8 F H 99 14 124/70 98 Intake and Output 07/26/22 07/27/22 07/27/22 22:59 06:59 14:59 Output Total 500 Balance -500 Output: Urine 500 Straight 500 Other: # Voids 3 Weight 63.503 kg Head normocephalic Neck supple Lungs clear to auscultation bilaterally no wheezing or crackles Heart regular rate and rhythm S1-S2, no rub or gallop Abdomen is soft nontender nondistended positive bowel sounds no hepatosplenomegaly Extremities no edema Neuro alert and orientated to 2. Results CBC & Chem 7: 07/26/22 19:33 07/26/22 19:33 Labs: Abnormal Lab Results - Last 24 Hours (Table) 07/26/22 07/26/22 07/26/22 Range/Units 18:56 19:33 19:33 WBC 14.2 H (3.8-10.6) k/uL RBC 4.15 L (4.30-5.90) m/uL Hgb 12.5 L (13.0-17.5) gm/dL Hct 38.1 L (39.0-53.0) % Neutrophils # 11.9 H (1.3-7.7) k/uL Sodium 136 L (137-145) mmol/L Chloride 97 L (98-107) mmol/L BUN 27 H (9-20) mg/dL Glucose 345 H (74-99) mg/dL POC Glucose (mg/dL) (70-110) mg/dL Hemoglobin A1c (0.0-6.0) % Urine Protein 1+ H (Negative) Urine Glucose (UA) 3+ H (Negative) Urine Ketones 2+ H (Negative) Urine Blood Moderate H (Negative) Ur Leukocyte Esterase Moderate H (Negative) Urine RBC 87 H (0-5) /hpf Urine WBC 39 H (0-5) /hpf Urine Bacteria Rare H (None) /hpf Urine Mucus Rare H (None) /hpf 07/26/22 07/26/22 07/27/22 Range/Units 19:33 22:39 06:07 WBC (3.8-10.6) k/uL RBC (4.30-5.90) m/uL Hgb (13.0-17.5) gm/dL Hct (39.0-53.0) % Neutrophils # (1.3-7.7) k/uL Sodium (137-145) mmol/L Chloride (98-107) mmol/L BUN (9-20) mg/dL Glucose (74-99) mg/dL POC Glucose (mg/dL) 337 H 282 H (70-110) mg/dL Hemoglobin A1c 8.0 H (0.0-6.0) % Urine Protein (Negative) Urine Glucose (UA) (Negative) Urine Ketones (Negative) Urine Blood (Negative) Ur Leukocyte Esterase (Negative) Urine RBC (0-5) /hpf Urine WBC (0-5) /hpf Urine Bacteria (None) /hpf Urine Mucus (None) /hpf Thrombosis Risk Factor Assmnt - Choose All That Apply Any of the Below Risk Factors Present?: Yes Each Factor Represents 1 point: Varicose veins Other Risk Factors: Yes Each Risk Factor Represents 2 Points: Age 61-74 years Thrombosis Risk Factor Assessment Total Risk Factor Score: 3 Thrombosis Risk Factor Assessment Level: Moderate Risk Assessment and Plan Assessment: 1. Hematuria secondary to urinary tract infection 2. Dehydration. Continue IV fluid 3. Fecal impaction. Enema ordered surgical service is consulted 4. Altered mental status changes. Head CT ordered 5. Hyperglycemia secondary diabetes mellitus type 2, insulin resumed + scale coverage 6. History of Essential hypertension 8. History of Hyperlipidemia 9. Diabetes mellitus type 2 10. Depression Ultrasound of kidneys and bladder ordered Head CT ordered Infectious disease and surgical services ordered Fleet enemas ordered Ammonia level repeat labs ordered Time with Patient: Greater than 30 (Greater than 60% of the total time spent in counseling and coordination of care)
[2022-07-27 10:44] LABS: Basophils % (A) 0 %; Eosinophils # (A) 0.1 k/uL (0-0.7); Eosinophils % (A) 0 %; HCT 34.8 % (39.0-53.0); HGB 11.6 gm/dL (13.0-17.5); Lymphocytes # (A) 1.3 k/uL (1.0-4.8); Lymphocytes % (A) 9 %; MCH 29.8 pg (25.0-35.0); MCHC 33.4 g/dL (31.0-37.0); MCV 89.4 fL (80.0-100.0); Mean Platelet Volume 9.4; Monocytes # (A) 0.8 k/uL (0-1.0); Monocytes % (A) 6 %; Neutrophils # (A) 12.2 k/uL (1.3-7.7); Neutrophils % (A) 83 %; Platelet Count 193 k/uL (150-450); RBC 3.89 m/uL (4.30-5.90); WBC 14.7 k/uL (3.8-10.6)
[2022-07-27 10:52] LABS: ALT 20 U/L (4-49); AST 25 U/L (17-59); African American GFR (CKD) >90 (>60 ml/min/1.73 sqM); Albumin 3.8 g/dL (3.5-5.0); Albumin/Globulin Ratio 1.7; Alkaline Phosphatase 72 U/L (38-126); Anion Gap 8 mmol/L; Blood Urea Nitrogen 20 mg/dL (9-20); Calcium 8.4 mg/dL (8.4-10.2); Carbon Dioxide 25 mmol/L (22-30); Chloride 102 mmol/L (98-107); Globulin 2.2 g/dL; Glucose 80 mg/dL (74-99); Non-African American GFR(CKD) >90 (>60 ml/min/1.73 sqM); Potassium 3.8 mmol/L (3.5-5.1); Sodium 135 mmol/L (137-145); Total Bilirubin 0.6 mg/dL (0.2-1.3)
[2022-07-27 11:07] LABS: Glucose,Whole Blood 77 mg/dL (70-110)
--- NOTE | 2022-07-27 11:10 | CT ---
EXAMINATION TYPE: CT brain wo con DATE OF EXAM: 07/27/2022 COMPARISON: 02/21/2022 HISTORY: altered mental status CT DLP: 1158.[address] of the brain was performed. The ventricles, basal cisterns and sulci overlying the cerebral convexities demonstrate mild enlargem ent. There is no evidence for intracranial hemorrhage or sulcal effacement. There is decreased attenuation about the periventricular white matter and deep white matter of both c erebral hemispheres, compatible with chronic small vessel ischemia. Differential diagnosis does inclu de demyelination. No mass effects are seen.No midline shift. Osseous calvarium is intact. If symptoms persist consider MRI. IMPRESSION: 1. Age related atrophic and chronic small vessel ischemic change without acute intracranial process s een at this time.
--- NOTE | 2022-07-27 13:22 | P.GSCN ---
History of Present Illness Consult date: 07/27/22 History of present illness: CHIEF COMPLAINT: Hematuria HISTORY OF PRESENT ILLNESS: This is a 71-year-old male who presented to the hospital with hematuria for 2 days and low-grade fever of 100 at home. He has been having difficulty urinating and had complained of right flank pain. Patient also having altered mental status and is lethargic. Computed tomography scan abdomen and pelvis showing rectal fecal impaction. Rectum measuring 9 cm. Normal appendix. Unable to obtain history from patient. Patient does have evidence of a UTI. Is currently on antibiotics. Patient also having urinary retention. Has required to be straight cathed 2. Surgical service consulted regards to fecal impaction. PAST MEDICAL HISTORY: See below PAST SURGICAL HISTORY: See below MEDICATIONS: See below ALLERGIES: See below SOCIAL HISTORY: No illicit drug use. REVIEW OF SYSTEMS: CONSTITUTIONAL: Denies fever or chills. HEENT: Denies blurred vision, vision changes, or eye pain. Denies hemoptysis CARDIOVASCULAR: Denies chest pain or pressure. RESPIRATORY: No shortness of breath. GASTROINTESTINAL: See HPI for pertinent findings HEMATOLOGIC: Denies bleeding disorders. GENITOURINARY: Denies any blood in urine or increased urinary frequency. SKIN: Denies pruitis. Denies rash. PHYSICAL EXAM: VITAL SIGNS: Reviewed GENERAL: Well-developed in no acute distress. HEENT: No sclera icterus. Extraocular movements grossly intact. Moist buccal mucosa. Head is atraumatic, normocephalic. No nasal drainage. ABDOMEN: Soft. Distended. Nontender NEUROLOGIC: Obtunded LABORATORY DATA: WBC 14.7 Hgb 11.6 platelets 193 Sodium 135 potassium 3.8 creatinine 0.82 Glucose 345 down to 77 hemoglobin A1c 8.0 Magnesium 2.1 LFTs normal Urinalysis positive for UTI Covid not detected IMAGING: Computed tomography scan abdomen and pelvis showing rectal fecal impaction. Normal appendix. No renal stone or obstruction. There is probably numerous calcified gallstones. Splenomegaly. Minimal scarring and atelectasis at the lung bases. Kidney and bladder ultrasound pending ASSESSMENT: 1. Fecal impaction 2. UTI 3. Urinary retention 4. Altered mental status PLAN: -Patient scheduled for flexible sigmoidoscopy with disimpaction today with Dr. Vaughan -Keep patient nothing by mouth -Continue antibiotics for UTI -Continue supportive care Thank you for this consultation Physician Licensing Services Clerk note has been reviewed by physician. Signing provider agrees with the documented findings, assessment, and plan of care. Past Medical History Past Medical History: Diabetes Mellitus, Eye Disorder, Hypertension, Seizure D isorder Additional Past Medical History / Comment(s): encephalopathy; RASH LEFT ANKLE,VARICOSE VEINS,EYE FLOATERS,TREMORS,SEIZURES WITH LOW BLOOD SUGAR-LAST SEIZURE APPROX JUN 2015 History of Any Multi-Drug Resistant Organisms: None Reported Past Surgical History: Orthopedic Surgery Additional Past Surgical History / Comment(s): cataracts bilateral. total left knee. left index finger thea placement Past Anesthesia/Blood Transfusion Reactions: No Reported Reaction Past Psychological History: No Psychological Hx Reported Smoking Status: Never smoker Past Alcohol Use History: None Reported Additional Past Alcohol Use History / Comment(s): QUIT SMOKING 1974,STARTED 1973 Past Drug Use History: None Reported - Past Family History Brother(s) Family Medical History: Diabetes Mellitus Sister(s) Family Medical History: Diabetes Mellitus Additional Family Medical History / Comment(s): MS Father Family Medical History: Cancer, Diabetes Mellitus Additional Family Medical History / Comment(s): COLON CA Medications and Allergies Home Medications Medication Instructions Recorded Confirmed Type Amitriptyline HCl [Elavil] 50 mg PO HS 03/28/14 07/26/22 History Insulin Glargine [Lantus Vial] 22 units SQ HS 03/28/14 07/26/22 History Multivitamin [Men's Multi-Vitamin] 1 tab PO W/SUPPER 03/28/14 07/26/22 History lamoTRIgine 200 mg PO BID-W/MEALS 03/28/14 07/26/22 History Aspirin EC [Ecotrin] 325 mg PO W/SUPPER 04/09/16 07/26/22 History Pravastatin Sodium [Pravachol] 40 mg PO HS 06/29/20 07/26/22 History Calcium Carbonate [Calcium] 600 mg PO DAILY 02/20/21 07/26/22 History lisinopriL [Zestril] 5 mg PO DAILY 30 Days #30 tab 02/24/21 07/26/22 Rx INSULIN ASPART (NovoLOG) [NovoLOG See Protocol SQ AC-TID 07/26/22 07/26/22 History (formulary)] PARoxetine HCL [Paxil] 20 mg PO DAILY 07/26/22 07/26/22 History Allergies Allergy/AdvReac Type Severity Reaction Status Date / Time Penicillins Allergy Rash/Hives Verified 07/26/22 14:54 Surgical - Exam Vital Signs Temp Pulse Resp BP Pulse Ox 99.8 F H 99 14 124/70 98 07/26/22 14:51 07/26/22 14:51 07/26/22 14:51 07/26/22 14:51 07/26/22 14:51 Results - Labs 07/27/22 10:25 07/27/22 10:25 Abnormal Lab Results - Last 24 Hours (Table) 07/26/22 07/26/22 07/26/22 Range/Units 18:56 19:33 19:33 WBC 14.2 H (3.8-10.6) k/uL RBC 4.15 L (4.30-5.90) m/uL Hgb 12.5 L (13.0-17.5) gm/dL Hct 38.1 L (39.0-53.0) % Neutrophils # 11.9 H (1.3-7.7) k/uL Sodium 136 L (137-145) mmol/L Chloride 97 L (98-107) mmol/L BUN 27 H (9-20) mg/dL Glucose 345 H (74-99) mg/dL POC Glucose (mg/dL) (70-110) mg/dL Hemoglobin A1c (0.0-6.0) % Total Protein (6.3-8.2) g/dL Urine Protein 1+ H (Negative) Urine Glucose (UA) 3+ H (Negative) Urine Ketones 2+ H (Negative) Urine Blood Moderate H (Negative) Ur Leukocyte Esterase Moderate H (Negative) Urine RBC 87 H (0-5) /hpf Urine WBC 39 H (0-5) /hpf Urine Bacteria Rare H (None) /hpf Urine Mucus Rare H (None) /hpf 07/26/22 07/26/22 07/27/22 Range/Units 19:33 22:39 06:07 WBC (3.8-10.6) k/uL RBC (4.30-5.90) m/uL Hgb (13.0-17.5) gm/dL Hct (39.0-53.0) % Neutrophils # (1.3-7.7) k/uL Sodium (137-145) mmol/L Chloride (98-107) mmol/L BUN (9-20) mg/dL Glucose (74-99) mg/dL POC Glucose (mg/dL) 337 H 282 H (70-110) mg/dL Hemoglobin A1c 8.0 H (0.0-6.0) % Total Protein (6.3-8.2) g/dL Urine Protein (Negative) Urine Glucose (UA) (Negative) Urine Ketones (Negative) Urine Blood (Negative) Ur Leukocyte Esterase (Negative) Urine RBC (0-5) /hpf Urine WBC (0-5) /hpf Urine Bacteria (None) /hpf Urine Mucus (None) /hpf 07/27/22 07/27/22 Range/Units 10:25 10:25 WBC 14.7 H (3.8-10.6) k/uL RBC 3.89 L (4.30-5.90) m/uL Hgb 11.6 L (13.0-17.5) gm/dL Hct 34.8 L (39.0-53.0) % Neutrophils # 12.2 H (1.3-7.7) k/uL Sodium 135 L (137-145) mmol/L Chloride (98-107) mmol/L BUN (9-20) mg/dL Glucose (74-99) mg/dL POC Glucose (mg/dL) (70-110) mg/dL Hemoglobin A1c (0.0-6.0) % Total Protein 6.0 L (6.3-8.2) g/dL Urine Protein (Negative) Urine Glucose (UA) (Negative) Urine Ketones (Negative) Urine Blood (Negative) Ur Leukocyte Esterase (Negative) Urine RBC (0-5) /hpf Urine WBC (0-5) /hpf Urine Bacteria (None) /hpf Urine Mucus (None) /hpf Diabetes panel 07/26/22 07/26/22 07/27/22 Range/Units 19:33 19:33 10:25 Sodium 136 L 135 L (137-145) mmol/L Potassium 4.7 3.8 (3.5-5.1) mmol/L Chloride 97 L 102 (98-107) mmol/L Carbon Dioxide 28 25 (22-30) mmol/L BUN 27 H 20 (9-20) mg/dL Creatinine 0.95 0.82 (0.66-1.25) mg/dL Glucose 345 H 80 (74-99) mg/dL Hemoglobin A1c 8.0 H (0.0-6.0) % Calcium 8.9 8.4 (8.4-10.2) mg/dL AST 26 25 (17-59) U/L ALT 23 20 (4-49) U/L Alkaline Phosphatase 90 72 (38-126) U/L Total Protein 6.6 6.0 L (6.3-8.2) g/dL Albumin 4.3 3.8 (3.5-5.0) g/dL Calcium panel 07/26/22 07/27/22 Range/Units 19:33 10:25 Calcium 8.9 8.4 (8.4-10.2) mg/dL Albumin 4.3 3.8 (3.5-5.0) g/dL Pituitary panel 07/26/22 07/27/22 Range/Units 19:33 10:25 Sodium 136 L 135 L (137-145) mmol/L Potassium 4.7 3.8 (3.5-5.1) mmol/L Chloride 97 L 102 (98-107) mmol/L Carbon Dioxide 28 25 (22-30) mmol/L BUN 27 H 20 (9-20) mg/dL Creatinine 0.95 0.82 (0.66-1.25) mg/dL Glucose 345 H 80 (74-99) mg/dL Calcium 8.9 8.4 (8.4-10.2) mg/dL Adrenal panel 07/26/22 07/27/22 Range/Units 19:33 10:25 Sodium 136 L 135 L (137-145) mmol/L Potassium 4.7 3.8 (3.5-5.1) mmol/L Chloride 97 L 102 (98-107) mmol/L Carbon Dioxide 28 25 (22-30) mmol/L BUN 27 H 20 (9-20) mg/dL Creatinine 0.95 0.82 (0.66-1.25) mg/dL Glucose 345 H 80 (74-99) mg/dL Calcium 8.9 8.4 (8.4-10.2) mg/dL Total Bilirubin 1.0 0.6 (0.2-1.3) mg/dL AST 26 25 (17-59) U/L ALT 23 20 (4-49) U/L Alkaline Phosphatase 90 72 (38-126) U/L Total Protein 6.6 6.0 L (6.3-8.2) g/dL Albumin 4.3 3.8 (3.5-5.0) g/dL
--- NOTE | 2022-07-27 13:25 | US ---
EXAMINATION TYPE: US kidneys/renal and bladder DATE OF EXAM: 07/27/2022 COMPARISON: NONE CLINICAL HISTORY: r/o hydronephrosis. EXAM MEASUREMENTS: Right Kidney: 9.4 x 4.1 x 4.8 cm Left Kidney: 10.5 x 5.3 x 4.0 cm *technical limitations, altered mental status, patient unable to move from supine position Right Kidney: lower pole obscured, no evidence of hydronephrosis Left Kidney: Obscured by overlying bowel gas Bladder: not fully distended Bilateral Jets seen: no IMPRESSION: No evidence of obstructive uropathy.
[2022-07-27 16:14] LABS: Glucose,Whole Blood 78 mg/dL (70-110)
[2022-07-27] MEDS ORDERED: PROPOFOL 10 MG/ML 20 ML VIAL IV ONE (16:38)
--- NOTE | 2022-07-27 17:38 | P.PCN ---
Date of Procedure: 07/27/22 Procedure(s) Performed: PREOPERATIVE DIAGNOSIS: Fecal impaction POSTOPERATIVE DIAGNOSIS: Same PROCEDURE: Flexible sigmoidoscopy with manual disimpaction ANESTHESIA: MAC SURGEON: Otilio Vaughan M.D. SPECIMENS: None ENDOSCOPIC PROCEDURE: The patient was placed on the endoscopy table in the left decubitus position. Digital rectal examination revealed a large firm fecal bolus. Manual disimpaction took place removing a large amount of stool. Once I could not reach any more of the firm stool the scope was advanced into the anus and passed proximal to the large fecal bolus. Over 1 L of enema was performed during the course of the procedure. We then went back and forth between utilizing the flexible colonoscope and manual disimpaction. Over 1 L volume of solid stool was evacuated. There was still some residual stool in the proximal rectum although this appeared to be softer and I suspect he will be able to pass this spontaneously. Firm stool balls were present in the sigmoid colon as well. The mucosa as visualized had some mild inflammatory changes but was surprisingly free of any significant erythema, edema, or ulcerations. The tone of the anus was normal. The patient was taken to the recovery room in stable condition per anesthesia guidelines.
[2022-07-27 17:49] LABS: Glucose,Whole Blood 75 mg/dL (70-110)
[2022-07-27] MEDS: DEXTROSE 50% SYRINGE 50 ML IVP PRN (18:14)
[2022-07-27] MEDS: DEXTROSE 5%-0.45% NACL 1,000 ML IV SCH (18:33)
[2022-07-27 18:40] LABS: Glucose,Whole Blood 177 mg/dL (70-110)
[2022-07-27 20:55] LABS: Glucose,Whole Blood 183 mg/dL (70-110)
[2022-07-27] MEDS: INSULIN DETEMIR (LEVEMIR) 100 UNIT/ML SYR SQ SCH (21:13)
[2022-07-27] MEDS: PRAVASTATIN SODIUM 40 MG TAB PO SCH (21:13)
[2022-07-27] MEDS: AMITRIPTYLINE HCL 50 MG TAB PO SCH (21:13)
[2022-07-28] MEDS ORDERED: ENOXAPARIN 40 MG/0.4 ML SYRINGE SQ SCH (09:00)
[2022-07-28 11:36] LABS: Glucose,Whole Blood 221 mg/dL (70-110)
[2022-07-28 11:37] LABS: Glucose,Whole Blood 121 mg/dL (70-110)
[2022-07-28 11:37] LABS: Glucose,Whole Blood 183 mg/dL (70-110)
--- NOTE | 2022-07-28 12:33 | P.PN ---
Subjective Progress Note Date: 07/28/22 Principal diagnosis: Fecal impaction Patient doing better today. He is more alert. T-max 99.8. Patient did have a single large portion of stool evacuate this morning after enema was utilized. Objective - Vital Signs Vital signs: Vital Signs Temp 97.9 F 07/28/22 08:00 Pulse 99 07/28/22 08:00 Resp 17 07/28/22 08:00 BP 131/67 07/28/22 08:00 Pulse Ox 90 L 07/28/22 08:00 FiO2 - Exam Abdomen: Soft, less distended, mild tenderness - Labs CBC & Chem 7: 07/27/22 10:25 07/27/22 10:25 Labs: Abnormal Lab Results - Last 24 Hours (Table) 07/27/22 07/27/22 07/28/22 Range/Units 18:38 20:53 03:02 POC Glucose (mg/dL) 177 H 183 H 221 H (70-110) mg/dL 07/28/22 07/28/22 Range/Units 06:13 11:29 POC Glucose (mg/dL) 183 H 121 H (70-110) mg/dL Microbiology - Last 24 Hours (Table) 07/26/22 19:15 Blood Culture - Preliminary Blood No Growth after 24 hours 07/26/22 18:56 Urine Culture - Preliminary Urine,Voided 07/26/22 19:33 Blood Culture - Preliminary Blood No Growth after 24 hours Assessment and Plan Plan: Patient seems to be doing somewhat better today. Continue regular diet. At lactulose twice a day. We'll follow closely.
--- NOTE | 2022-07-28 12:34 | P.PN ---
Subjective Progress Note Date: 07/28/22 This is 71-year-old male patient who presents to the ER with complaints of hematuria starting about 2 days ago. According to ER records patient had difficulty urinating with some right flank pain with a low-grade temperature. Patient has past medical history of diabetes mellitus, high disorder, hyperte nsion, seizure disorder, encephalopathy. CT of abdomen and pelvis completed without contrast showing rectal fecal impaction normal appendix. Chest x-ray completed showing no active cardiopulmonary disease. Inspiration decreased compared to old exam. COVID-19 negative. UA positive for urinary tract infection. White blood cell elevated at 14.2. Vital signs temp 99.8, pulse rate 99, respiratory rate 14, blood pressure 124/70 with a pulse ox 98% room air. Patient has been started on IV antibiotics. Urine blood and sputum cultures ordered. This time patient is resting comfortably in bed. Patient is alert and oriented 2. Patient denies chest pain or shortness breath. Patient denies nausea vomiting or diarrhea. Patient denies any urinary burning or frequency On 07/28/2022 patient was seen and examined on the medical floor he is alert, slightly confused in no apparent distress there is no fever or chills no headache or dizziness no chest pain no shortness of breath no cough no nausea or vomiting no abdominal pain no diarrhea no blood in the stools he has a Stanley catheter in, and urine in the catheter bag is bloody. Patient underwent flexible sigmoidoscopy with manual disimpaction yesterday, he feels significant relief after procedure. Today patient is sitting up in a chair he is alert and trying to answer questions but he seems to be confused, which is a change from his baseline prior to admission, a neurology consultation will be requested in that regard. Objective - Vital Signs Vital signs: Vital Signs Temp 98.7 F 07/27/22 01:30 Pulse 99 07/27/22 19:55 Resp 18 07/27/22 01:30 BP 135/48 07/27/22 19:55 Pulse Ox 92 L 07/27/22 01:30 FiO2 - Exam Head normocephalic and atraumatic Neck supple no JVD Lungs clear to auscultation bilaterally no wheezing or crackles Heart regular rate and rhythm S1-S2, no rub or gallop Abdomen is soft nontender nondistended positive bowel sounds no hepatosplenomegaly Extremities no edema Neuro alert slightly confused in no apparent distress - Labs CBC & Chem 7: 07/27/22 10:25 07/27/22 10:25 Labs: Abnormal Lab Results - Last 24 Hours (Table) 07/27/22 07/27/22 Range/Units 18:38 20:53 POC Glucose (mg/dL) 177 H 183 H (70-110) mg/dL Microbiology - Last 24 Hours (Table) 07/26/22 19:15 Blood Culture - Preliminary Blood No Growth after 24 hours 07/26/22 18:56 Urine Culture - Preliminary Urine,Voided 07/26/22 19:33 Blood Culture - Preliminary Blood No Growth after 24 hours Assessment and Plan Assessment: 1. Hematuria secondary to urinary tract infection 2. Dehydration. Continue IV fluid 3. Fecal impaction. Enema ordered surgical service is consulted 4. Altered mental status changes. Head CT ordered 5. Hyperglycemia secondary diabetes mellitus type 2, insulin resumed + scale coverage 6. History of Essential hypertension 8. History of Hyperlipidemia 9. Diabetes mellitus type 2 10. Depression Ultrasound of kidneys and bladder ordered Head CT ordered Infectious disease and surgical services ordered Fleet enemas ordered Ammonia level repeat labs ordered Plan: 1. Hematuria secondary to urinary tract infection 2. Dehydration. Continue IV fluid 3. Fecal impaction. Enema ordered surgical service is consulted 4. Altered mental status changes. Head CT ordered 5. Hyperglycemia secondary diabetes mellitus type 2, insulin resumed + scale coverage 6. History of Essential hypertension 8. History of Hyperlipidemia 9. Diabetes mellitus type 2 10. Depression Ultrasound of kidneys and bladder ordered Head CT ordered Infectious disease and surgical services ordered Fleet enemas ordered Ammonia level repeat labs ordered
--- NOTE | 2022-07-28 13:12 | P.CONS ---
History of Present Illness - Reason for Consult Consult date: 07/27/22 - History of Present Illness Patient is a 71-year-old male with a past medical history taken for diabetes mellitus hypertension seizure disorder patient was brought into the ER for evaluation of weakness and hematuria in this patient symptom has been going on for about 2 days before presentation to hospital and the patient also have a low-grade fever of 100 F at home patient apparently was also complaining of some difficulty urination and right flank pain to the ER physician on arrival to the ER the patient did have low-grade fever of 99.8 F patient was mildly tachycardic patient did have white count of 14.2 with a left shift kidney function has been normal liver enzymes are normal patient did have a positive UA COVID testing was negative blood urine culture has been obtained patient did have CT of abdominal pelvis which shows rectal fecal impaction normal appendix probably numerous calcified gallstone and some atelectasis at the lung bases patient did have a ultrasound of the kidney renal bladder area no evidence of obstructive uropathy patient was admitted to the hospital started on Rocephin i nfectious he was consulted for further management of antibiotic therapy most information has been obtained from review the chart talking to the family the bedside patient was admitted good historian Past Medical History Past Medical History: Diabetes Mellitus, Eye Disorder, Hypertension, Seizure Disorder Additional Past Medical History / Comment(s): encephalopathy; RASH LEFT ANKLE,VARICOSE VEINS,EYE FLOATERS,TREMORS,SEIZURES WITH LOW BLOOD SUGAR-LAST SEIZURE APPROX JUN 2015 History of Any Multi-Drug Resistant Organisms: None Reported Past Surgical History: Orthopedic Surgery Additional Past Surgical History / Comment(s): cataracts bilateral. total left knee. left index finger thea placement Past Anesthesia/Blood Transfusion Reactions: No Reported Reaction Past Psychological History: No Psychological Hx Reported Smoking Status: Never smoker Past Alcohol Use History: None Reported Additional Past Alcohol Use History / Comment(s): QUIT SMOKING 1974,STARTED 1973 Past Drug Use History: None Reported - Past Family History Brother(s) Family Medical History: Diabetes Mellitus Sister(s) Family Medical History: Diabetes Mellitus Additional Family Medical History / Comment(s): MS Father Family Medical History: Cancer, Diabetes Mellitus Additional Family Medical History / Comment(s): COLON CA Medications and Allergies Home Medications Medication Instructions Recorded Confirmed Type Amitriptyline HCl [Elavil] 50 mg PO HS 03/28/14 07/26/22 History Insulin Glargine [Lantus Vial] 22 units SQ HS 03/28/14 07/26/22 History Multivitamin [Men's Multi-Vitamin] 1 tab PO W/SUPPER 03/28/14 07/26/22 History lamoTRIgine 200 mg PO BID-W/MEALS 03/28/14 07/26/22 History Aspirin EC [Ecotrin] 325 mg PO W/SUPPER 04/09/16 07/26/22 History Pravastatin Sodium [Pravachol] 40 mg PO HS 06/29/20 07/26/22 History Calcium Carbonate [Calcium] 600 mg PO DAILY 02/20/21 07/26/22 History lisinopriL [Zestril] 5 mg PO DAILY 30 Days #30 tab 02/24/21 07/26/22 Rx INSULIN ASPART (NovoLOG) [NovoLOG See Protocol SQ AC-TID 07/26/22 07/26/22 History (formulary)] PARoxetine HCL [Paxil] 20 mg PO DAILY 07/26/22 07/26/22 History Allergies Allergy/AdvReac Type Severity Reaction Status Date / Time Penicillins Allergy Rash/Hives Verified 07/26/22 14:54 Physical Exam Vitals: Vital Signs Temp Pulse Pulse Resp BP BP Pulse Ox 07/27/22 01:30 98.7 F 96 18 129/68 92 L 07/26/22 23:29 97.8 F 99 18 141/62 95 07/26/22 14:51 99.8 F H 99 14 124/70 98 Intake and Output 07/26/22 07/27/22 07/27/22 22:59 06:59 14:59 Output Total 500 Balance -500 Output: Urine 500 Straight 500 Other: # Voids 3 Weight 63.503 kg Results CBC & Chem 7: 07/27/22 10:25 07/27/22 10:25 Labs: Abnormal Lab Results - Last 24 Hours (Table) 07/26/22 07/26/22 07/26/22 Range/Units 18:56 19:33 19:33 WBC 14.2 H (3.8-10.6) k/uL RBC 4.15 L (4.30-5.90) m/uL Hgb 12.5 L (13.0-17.5) gm/dL Hct 38.1 L (39.0-53.0) % Neutrophils # 11.9 H (1.3-7.7) k/uL Sodium 136 L (137-145) mmol/L Chloride 97 L (98-107) mmol/L BUN 27 H (9-20) mg/dL Glucose 345 H (74-99) mg/dL POC Glucose (mg/dL) (70-110) mg/dL Hemoglobin A1c (0.0-6.0) % Total Protein (6.3-8.2) g/dL Urine Protein 1+ H (Negative) Urine Glucose (UA) 3+ H (Negative) Urine Ketones 2+ H (Negative) Urine Blood Moderate H (Negative) Ur Leukocyte Esterase Moderate H (Negative) Urine RBC 87 H (0-5) /hpf Urine WBC 39 H (0-5) /hpf Urine Bacteria Rare H (None) /hpf Urine Mucus Rare H (None) /hpf 07/26/22 07/26/22 07/27/22 Range/Units 19:33 22:39 06:07 WBC (3.8-10.6) k/uL RBC (4.30-5.90) m/uL Hgb (13.0-17.5) gm/dL Hct (39.0-53.0) % Neutrophils # (1.3-7.7) k/uL Sodium (137-145) mmol/L Chloride (98-107) mmol/L BUN (9-20) mg/dL Glucose (74-99) mg/dL POC Glucose (mg/dL) 337 H 282 H (70-110) mg/dL Hemoglobin A1c 8.0 H (0.0-6.0) % Total Protein (6.3-8.2) g/dL Urine Protein (Negative) Urine Glucose (UA) (Negative) Urine Ketones (Negative) Urine Blood (Negative) Ur Leukocyte Esterase (Negative) Urine RBC (0-5) /hpf Urine WBC (0-5) /hpf Urine Bacteria (None) /hpf Urine Mucus (None) /hpf 07/27/22 07/27/22 Range/Units 10:25 10:25 WBC 14.7 H (3.8-10.6) k/uL RBC 3.89 L (4.30-5.90) m/uL Hgb 11.6 L (13.0-17.5) gm/dL Hct 34.8 L (39.0-53.0) % Neutrophils # 12.2 H (1.3-7.7) k/uL Sodium 135 L (137-145) mmol/L Chloride (98-107) mmol/L BUN (9-20) mg/dL Glucose (74-99) mg/dL POC Glucose (mg/dL) (70-110) mg/dL Hemoglobin A1c (0.0-6.0) % Total Protein 6.0 L (6.3-8.2) g/dL Urine Protein (Negative) Urine Glucose (UA) (Negative) Urine Ketones (Negative) Urine Blood (Negative) Ur Leukocyte Esterase (Negative) Urine RBC (0-5) /hpf Urine WBC (0-5) /hpf Urine Bacteria (None) /hpf Urine Mucus (None) /hpf Assessment and Plan Plan: 1patient presented to hospital with generalized weakness did have some difficulty urination apparently some hematuria and flank pain concerning for possible pyelonephritis in this patient who did have elevated white count and a low-grade fever on presentation the hospital ultrasound did not show any evidence of hydronephrosis or renal stone. 2penicillin allergy that would limit the number of antibiotics safe to use. 3patient has tolerated Rocephin 2 g daily and will be continued while waiting for the culture to finalize. We will follow on clinical condition and cultures to further adjust medication if needed Thank you for this consultation will follow this patient along with you
[2022-07-28] MEDS: DEXTROSE 5%-0.45% NACL 1,000 ML IV SCH ×2 (13:17→16:40)
[2022-07-28] MEDS: SODIUM CHLORIDE 0.9% 1,000 ML IV SCH ×3 (13:17→20:23)
[2022-07-28] MEDS: INSULIN ASPART (NovoLOG) 100 UNIT/ML VIAL SQ SCH ×3 (13:18→18:33)
[2022-07-28] MEDS: MULTIVITAMINS, THERA 1 EACH TAB PO SCH (13:41)
[2022-07-28] MEDS: CALCIUM CARBONATE 500 MG CHEWABLE PO SCH (13:41)
[2022-07-28] MEDS: lisinopriL 5 MG TAB PO SCH (13:41)
[2022-07-28] MEDS: lamoTRIgine 100 MG TAB PO SCH ×2 (13:41→21:36)
[2022-07-28] MEDS: FAMOTIDINE 20 MG TAB PO SCH (13:41)
[2022-07-28] MEDS: PARoxetine 20 MG TAB PO SCH (13:42)
[2022-07-28] MEDS: LACTULOSE 20 GM/30 ML CUP PO SCH ×2 (15:12→21:36)
[2022-07-28 16:36] LABS: Glucose,Whole Blood 246 mg/dL (70-110)
[2022-07-28 19:13] LABS: Glucose,Whole Blood 282 mg/dL (70-110)
[2022-07-28] MEDS: AMITRIPTYLINE HCL 50 MG TAB PO SCH (21:36)
[2022-07-28] MEDS: PRAVASTATIN SODIUM 40 MG TAB PO SCH (21:36)
[2022-07-28] MEDS: INSULIN DETEMIR (LEVEMIR) 100 UNIT/ML SYR SQ SCH (21:36)
[2022-07-29] MEDS: DEXTROSE 5%-0.45% NACL 1,000 ML IV SCH ×2 (00:27→19:52)
[2022-07-29] MEDS: SODIUM CHLORIDE 0.9% 1,000 ML IV SCH ×3 (05:04→19:51)
[2022-07-29 06:10] LABS: Glucose,Whole Blood 177 mg/dL (70-110)
[2022-07-29] MEDS: INSULIN ASPART (NovoLOG) 100 UNIT/ML VIAL SQ SCH ×3 (06:35→17:07)
[2022-07-29] MEDS: CALCIUM CARBONATE 500 MG CHEWABLE PO SCH (08:59)
[2022-07-29] MEDS: lisinopriL 5 MG TAB PO SCH (08:59)
[2022-07-29] MEDS: FAMOTIDINE 20 MG TAB PO SCH (08:59)
[2022-07-29] MEDS: MULTIVITAMINS, THERA 1 EACH TAB PO SCH (09:00)
[2022-07-29] MEDS: PARoxetine 20 MG TAB PO SCH (09:00)
[2022-07-29] MEDS: lamoTRIgine 100 MG TAB PO SCH ×2 (09:00→20:59)
[2022-07-29] MEDS: LACTULOSE 20 GM/30 ML CUP PO SCH ×2 (09:09→20:58)
--- NOTE | 2022-07-29 09:47 | P.PN ---
Subjective Progress Note Date: 07/29/22 Principal diagnosis: Fecal impaction Patient did well from yesterday to today. He had multiple large stools. Seems more alert. Denies abdominal pain. Objective - Vital Signs Vital signs: Vital Signs Temp 97.9 F 07/29/22 08:00 Pulse 105 H 07/29/22 08:00 Resp 18 07/29/22 08:00 BP 133/72 07/29/22 08:00 Pulse Ox 92 L 07/29/22 08:00 FiO2 Intake & Output 07/28/22 07/29/22 07/29/22 19:59 06:59 18:59 Intake Total Output Total Balance Intake: Intake, IV Titration Amount Sodium Chloride 0.9% 1, 000 ml @ 130 mls/hr IV . Q7H42M [facility] Rx#:[id number] cefTRIAXone 2 gm In Sodium Chloride 0.9% 50 ml @ 100 mls/hr IVPB Q24HR [facility] Rx#:[id number] Output: Urine Other: Voiding Method # Bowel Movements - Exam Abdomen: Soft, non-tender, mild distention - Labs CBC & Chem 7: 07/27/22 10:25 07/27/22 10:25 Labs: Abnormal Lab Results - Last 24 Hours (Table) 07/28/22 07/28/22 07/28/22 Range/Units 03:02 06:13 11:29 POC Glucose (mg/dL) 221 H 183 H 121 H (70-110) mg/dL 07/28/22 07/28/22 07/29/22 Range/Units 16:35 19:11 06:08 POC Glucose (mg/dL) 246 H 282 H 177 H (70-110) mg/dL Microbiology - Last 24 Hours (Table) 07/26/22 19:15 Blood Culture - Preliminary Blood No Growth after 48 hours 07/26/22 19:33 Blood Culture - Preliminary Blood No Growth after 48 hours 07/26/22 18:56 Urine Culture - Preliminary Urine,Voided Group D Enterococcus Assessment and Plan (1) Fecal impaction in rectum Narrative/Plan: Patient doing better at this time. Continue stool softeners. Increase activity as tolerated. Continue diet. Will follow. Current Visit: Yes Status: Acute Code(s): K56.41 - FECAL IMPACTION SNOMED Code(s): 3195839021
--- NOTE | 2022-07-29 10:41 | P.PN ---
Subjective Progress Note Date: 07/29/22 This is 71-year-old male patient who presents to the ER with complaints of hematuria starting about 2 days ago. According to ER records patient had difficulty urinating with some right flank pain with a low-grade temperature. Patient has past medical history of diabetes mellitus, high disorder, hyperte nsion, seizure disorder, encephalopathy. CT of abdomen and pelvis completed without contrast showing rectal fecal impaction normal appendix. Chest x-ray completed showing no active cardiopulmonary disease. Inspiration decreased compared to old exam. COVID-19 negative. UA positive for urinary tract infection. White blood cell elevated at 14.2. Vital signs temp 99.8, pulse rate 99, respiratory rate 14, blood pressure 124/70 with a pulse ox 98% room air. Patient has been started on IV antibiotics. Urine blood and sputum cultures ordered. This time patient is resting comfortably in bed. Patient is alert and oriented 2. Patient denies chest pain or shortness breath. Patient denies nausea vomiting or diarrhea. Patient denies any urinary burning or frequency On 07/28/2022 patient was seen and examined on the medical floor he is alert, slightly confused in no apparent distress there is no fever or chills no headache or dizziness no chest pain no shortness of breath no cough no nausea or vomiting no abdominal pain no diarrhea no blood in the stools he has a Stanley catheter in, and urine in the catheter bag is bloody. Patient underwent flexible sigmoidoscopy with manual disimpaction yesterday, he feels significant relief after procedure. Today patient is sitting up in a chair he is alert and trying to answer questions but he seems to be confused, which is a change from his baseline prior to admission, a neurology consultation will be requested in that regard. On 07/29/2022 patient is alert and oriented sitting up in chair. Patient does seem to have some slight confusion. Patient was seen by neurology services awaiting further recommendations. Patient does report improvement since fecal disimpaction patient remains on Rocephin per infectious disease. At this time patient denies chest pain or shortness breath. Patient denies nausea vomiting or diarrhea. Patient denies any urinary burning or frequency. Objective - Vital Signs Vital signs: Vital Signs Temp 97.9 F 07/29/22 08:00 Pulse 105 H 07/29/22 08:00 Resp 18 07/29/22 08:00 BP 133/72 07/29/22 08:00 Pulse Ox 92 L 07/29/22 08:00 FiO2 Intake & Output 07/28/22 07/29/22 07/29/22 19:59 06:59 18:59 Intake Total Output Total Balance Intake: Intake, IV Titration Amount Sodium Chloride 0.9% 1, 000 ml @ 130 mls/hr IV . Q7H42M [facility] Rx#:[id number] cefTRIAXone 2 gm In Sodium Chloride 0.9% 50 ml @ 100 mls/hr IVPB Q24HR [facility] Rx#:[id number] Output: Urine Other: Voiding Method # Bowel Movements - Exam Head normocephalic and atraumatic Neck supple no JVD Lungs clear to auscultation bilaterally no wheezing or crackles Heart regular rate and rhythm S1-S2, no rub or gallop Abdomen is soft nontender nondistended positive bowel sounds no hepatosplenomega ly Extremities no edema Neuro alert slightly confused in no apparent distress - Labs CBC & Chem 7: 07/27/22 10:25 07/27/22 10:25 Labs: Abnormal Lab Results - Last 24 Hours (Table) 07/28/22 07/28/22 07/29/22 Range/Units 16:35 19:11 06:08 POC Glucose (mg/dL) 246 H 282 H 177 H (70-110) mg/dL Microbiology - Last 24 Hours (Table) 07/26/22 19:15 Blood Culture - Preliminary Blood No Growth after 48 hours 07/26/22 19:33 Blood Culture - Preliminary Blood No Growth after 48 hours 07/26/22 18:56 Urine Culture - Preliminary Urine,Voided Group D Enterococcus Assessment and Plan Assessment: 1. Hematuria secondary to urinary tract infection 2. Dehydration. Continue IV fluid 3. Fecal impaction. Enema ordered surgical service is consulted 4. Altered mental status changes. Head CT completed 5. Hyperglycemia secondary diabetes mellitus type 2, insulin resumed + scale coverage 6. History of Essential hypertension 8. History of Hyperlipidemia 9. Diabetes mellitus type 2 10. Depression DVT prophylaxis Lovenox. GI prophylaxis Protonix Infectious disease, neurology surgical services following Repeat labs ordered in a.m.
[2022-07-29 11:19] LABS: Basophils # (A) 0.03 X 10*3/uL (0.00-0.10); Basophils % (A) 0.3 %; Eosinophils # (A) 0.06 X 10*3/uL (0.04-0.35); Eosinophils % (A) 0.5 %; HCT 33.1 % (39.6-50.0); HGB 10.7 g/dL (13.0-17.0); Immature Grans, Automated 0.3 %; Lymphocytes # (A) 0.89 X 10*3/uL (0.90-5.00); Lymphocytes % (A) 7.7 %; MCH 29.6 pg (27.0-32.0); MCHC 32.3 g/dL (32.0-37.0); MCV 91.4 fL (80.0-97.0); Monocytes # (A) 0.91 X 10*3/uL (0.20-1.00); Monocytes % (A) 7.9 %; NRBC Per 100 WBC 0 /100 WBCS (0.0-0.0); Neutrophils # (A) 9.56 X 10*3/uL (1.80-7.70); Neutrophils % (A) 83.3 %; Platelet Count 219 X 10*3/uL (140-440); RBC 3.62 X 10*6/uL (4.40-5.60); RDW 12.6 % (11.5-14.5); WBC 11.49 X 10*3/uL (4.50-10.00)
--- NOTE | 2022-07-29 11:21 | P.CNNES ---
History of Present Illness Consult date: 07/29/22 Requesting physician: Shelley Simons Reason for Consult: mental status changes History of Present Illness: This is a 71-year-old gentleman presented to the emergency department because of blood in the urine with low grade fever at home. History was obtained from medical record and patient's nurse. Neurology is consulted for altered mental status. According to the nurse it seems that the patient has been having recurrent falls and the she felt he was unsteady walk-in yesterday as a result she asked primary team for neurology to be consulted. According to the nurse while he is in the hospital he's alert oriented times said to but according to his that he slightly more responsive. The nurse was walking him she stated that the he had shuffled gait as well as shethat he is tremoring but no seizure- like activity was noted, no foaming around the mouth. It seems that the patient is having recurrent falls at home. He has underlying urinary tract infection currently and his urine cultures positive for group D enterococcus. Seems that he has fecal impaction and the general surgery team is on board. He has brittle diabetes according to the . Of note she was seen in February [address] Long was felt possibly he has TIA. He had MRI which was negative for stroke. It is reported on the medical records that he has history of seizure and he is on Lamictal. Some of the workup during his hospital visit consisted of: Social temperature is 99.8 Fahrenheit and otherwise there is no further fevers His initial white blood cells 14.2 which is a slightly elevated with predominantly neutrophilic. Initial CT of the head is reported as age-related atrophic and chronic small vessel ischemic change without acute intracranial process seen at this time. I personally could not review the CT of the head because of issues with the system. Ammonia level is less than 9 Current of our is undetected Review of Systems Review of system: The 12 point system was reviewed and apparent positive and negative per HPI. Past Medical History Past Medical History: Diabetes Mellitus, Eye Disorder, Hypertension, Seizure Disorder Additional Past Medical History / Comment(s): encephalopathy; RASH LEFT ANKLE, VARICOSE VEINS,EYE FLOATERS,TREMORS,SEIZURES WITH LOW BLOOD SUGAR-LAST SEIZURE APPROX JUN 2015 History of Any Multi-Drug Resistant Organisms: None Reported Past Surgical History: Orthopedic Surgery Additional Past Surgical History / Comment(s): cataracts bilateral. total left knee. left index finger thea placement Past Anesthesia/Blood Transfusion Reactions: No Reported Reaction Past Psychological History: No Psychological Hx Reported Smoking Status: Never smoker Past Alcohol Use History: None Reported Additional Past Alcohol Use History / Comment(s): QUIT SMOKING 1974,STARTED 1973 Past Drug Use History: None Reported - Past Family History Brother(s) Family Medical History: Diabetes Mellitus Sister(s) Family Medical History: Diabetes Mellitus Additional Family Medical History / Comment(s): MS Father Family Medical History: Cancer, Diabetes Mellitus Additional Family Medical History / Comment(s): COLON CA Medications and Allergies Home Medications Medication Instructions Recorded Confirmed Type Amitriptyline HCl [Elavil] 50 mg PO HS 03/28/14 07/26/22 History Insulin Glargine [Lantus Vial] 22 units SQ HS 03/28/14 07/26/22 History Multivitamin [Men's Multi-Vitamin] 1 tab PO W/SUPPER 03/28/14 07/26/22 History lamoTRIgine 200 mg PO BID-W/MEALS 03/28/14 07/26/22 History Aspirin EC [Ecotrin] 325 mg PO W/SUPPER 04/09/16 07/26/22 History Pravastatin Sodium [Pravachol] 40 mg PO HS 06/29/20 07/26/22 History Calcium Carbonate [Calcium] 600 mg PO DAILY 02/20/21 07/26/22 History lisinopriL [Zestril] 5 mg PO DAILY 30 Days #30 tab 02/24/21 07/26/22 Rx INSULIN ASPART (NovoLOG) [NovoLOG See Protocol SQ AC-TID 07/26/22 07/26/22 Hi story (formulary)] PARoxetine HCL [Paxil] 20 mg PO DAILY 07/26/22 07/26/22 History Allergies Allergy/AdvReac Type Severity Reaction Status Date / Time Penicillins Allergy Rash/Hives Verified 07/26/22 14:54 Physical Examination - Vital Signs Vital Signs: Vital Signs Temp Pulse Resp BP Pulse Ox 07/29/22 08:00 97.9 F 105 H 18 133/72 92 L 07/29/22 01:26 EST 99.0 F 94 17 123/70 94 L 07/28/22 19:39 99.4 F 82 17 122/67 93 L 07/28/22 14:00 98.8 F 106 H 18 108/58 91 L Intake and Output 07/28/22 07/29/22 07/29/22 23:59 06:59 14:59 Intake Total Output Total Balance Intake: Intake, IV Titration Amount Sodium Chloride 0.9% 1, 000 ml @ 130 mls/hr IV . Q7H42M [facility] Rx#:[id number] cefTRIAXone 2 gm In Sodium Chloride 0.9% 50 ml @ 100 mls/hr IVPB Q24HR [facility] Rx#:[id number] Output: Urine Other: Voiding Method # Bowel Movements GENERAL: The patient is lying in bed and is not in acute distress. CHEST: The heart rate is regular rate rhythm. No murmurs to auscultation. LUNG: Clear to auscultation bilaterally no wheezing noted throughout. Not labored breathing. ABDOMEN/GI: Bowel sounds present in all 4 quadrants. No tenderness to palpation throughout. NEUROLOGICAL: Higher mental function: The patient is awake, alert, oriented to self, year but stated the month is Halloween. Stated he was at home. He is able to name objects (pen, glasses, watch). He is following simple commands and at times I had to repeat them. No aphasia or neglect. Cranial nerves: The pupils are round, equal and reactive to light. Visual north are full to confrontation throughout. Extraocular movement is tracking through out the room and no appreciateable nystagmus. No facial weakness. i Hearing is severely decreased bilaterally to hand rub. Tongue is midline and moved [id number] without any difficulty. No dysarthria is noted. Patient appears somewhat mask-like facies. Shoulder shrug is normal bilaterally. Motor: Gait is slow, taking short steps and appear somewhat wide. The strength is 5 over 5 throughout. Some increase tone at wrists and elbows at time. Has some tremor but seems more with action. Normal bulk. Cerebellum: Normal finger to nose bilaterally. Sensation: Sensation is normal to touch throughout. Reflexes (right/left):1 + Plantars is mute over the left at baseline. Mute over the right. Results - Laboratory Findings CBC and BMP: 07/29/22 06:13 07/27/22 10:25 Abnormal Lab Findings: Abnormal Labs 07/26/22 07/26/22 07/26/22 18:56 19:33 19:33 WBC 14.2 H RBC 4.15 L Hgb 12.5 L Hct 38.1 L Neutrophils # 11.9 H Sodium 136 L Chloride 97 L BUN 27 H Glucose 345 H POC Glucose (mg/dL) Hemoglobin A1c Total Protein Urine Protein 1+ H Urine Glucose (UA) 3+ H Urine Ketones 2+ H Urine Blood Moderate H Ur Leukocyte Esterase Moderate H Urine RBC 87 H Urine WBC 39 H Urine Bacteria Rare H Urine Mucus Rare H 07/26/22 07/26/22 07/27/22 19:33 22:39 06:07 WBC RBC Hgb Hct Neutrophils # Sodium Chloride BUN Glucose POC Glucose (mg/dL) 337 H 282 H Hemoglobin A1c 8.0 H Total Protein Urine Protein Urine Glucose (UA) Urine Ketones Urine Blood Ur Leukocyte Esterase Urine RBC Urine WBC Urine Bacteria Urine Mucus 07/27/22 07/27/22 07/27/22 10:25 10:25 18:38 WBC 14.7 H RBC 3.89 L Hgb 11.6 L Hct 34.8 L Neutrophils # 12.2 H Sodium 135 L Chloride BUN Glucose POC Glucose (mg/dL) 177 H Hemoglobin A1c Total Protein 6.0 L Urine Protein Urine Glucose (UA) Urine Ketones Urine Blood Ur Leukocyte Esterase Urine RBC Urine WBC Urine Bacteria Urine Mucus 07/27/22 07/28/22 07/28/22 20:53 03:02 06:13 WBC RBC Hgb Hct Neutrophils # Sodium Chloride BUN Glucose POC Glucose (mg/dL) 183 H 221 H 183 H Hemoglobin A1c Total Protein Urine Protein Urine Glucose (UA) Urine Ketones Urine Blood Ur Leukocyte Esterase Urine RBC Urine WBC Urine Bacteria Urine Mucus 07/28/22 07/28/22 07/28/22 11:29 16:35 19:11 WBC RBC Hgb Hct Neutrophils # Sodium Chloride BUN Glucose POC Glucose (mg/dL) 121 H 246 H 282 H Hemoglobin A1c Total Protein Urine Protein Urine Glucose (UA) Urine Ketones Urine Blood Ur Leukocyte Esterase Urine RBC Urine WBC Urine Bacteria Urine Mucus 07/29/22 06:08 WBC RBC Hgb Hct Neutrophils # Sodium Chloride BUN Glucose POC Glucose (mg/dL) 177 H Hemoglobin A1c Total Protein Urine Protein Urine Glucose (UA) Urine Ketones Urine Blood Ur Leukocyte Esterase Urine RBC Urine WBC Urine Bacteria Urine Mucus Assessment and Plan Assessment: Recurrent falls with tremors. Rule out Parkinson's disease (since has mild increase tone in uppers at time and shuffling gait) vs tremors due to essential. His falls also could be component of peripheral neuropathy from his diabetes. Mild encephalopathy due to underlying urinary tract infection--currently oriented X2 Acute urinary tract infection Fecal impaction History of seizure Probable TIA in 2020 Diabetes mellitus type 2 Plan: Ordered orthostatic vitals I started the patient the on Sinemet for possible Parkinson's to assess whether there is any benefit with his gait and tremors. I ordered TSH with free T4 level for tremors. Also ordered Vitamin B12, folate level. If the patient continues to the have confusion all obtain and routine EEG for now we'll hold since she's responding. Physical therapy and occupation therapy are are consulted ID team is consulted for underlying urinary tract infection General surgery team is consulted for fecal impaction We'll defer the rest of the medical management the primary team Plan was discussed with the patient nurse Thank you for the consultation Time with Patient: Greater than 30
[2022-07-29 11:50] LABS: African American GFR (CKD) 105.6 (60.0-200.0); Albumin 3.5 g/dL (3.8-4.9); Albumin/Globulin Ratio 1.67 (1.60-3.17); Anion Gap 10.5 mmol/L (10.00-18.00); BUN/Creat Ratio 20.88 Ratio (12.00-20.00); Blood Urea Nitrogen 16.7 mg/dL (9.0-27.0); Calcium 8.1 mg/dL (8.7-10.3); Carbon Dioxide 23.5 mmol/L (20.0-27.5); Globulin 2.1 g/dL (1.6-3.3); Non-African American GFR(CKD) 91.1 (60.0-200.0); Potassium 3.6 mmol/L (3.5-5.5); Total Bilirubin 0.4 mg/dL (0.30-1.20); Total Protein 5.6 g/dL (6.2-8.2)
[2022-07-29 11:54] LABS: Glucose,Whole Blood 161 mg/dL (70-110)
[2022-07-29] MEDS: CARBIDOPA-LEVODOPA 25-100 MG 1 EACH TAB PO SCH ×3 (12:53→20:59)
[2022-07-29 16:34] LABS: Glucose,Whole Blood 161 mg/dL (70-110)
[2022-07-29] MEDS ORDERED: VANCOMYCIN IV PER PHARMACY 1 EACH MISC MISCELLANE PRN (17:08)
[2022-07-29] MEDS: VANCOMYCIN 1,250 MG in SODIUM CHLORIDE 0.9% 250 ML IVPB SCH (19:31)
[2022-07-29 20:00] LABS: Glucose,Whole Blood >600 mg/dL (70-110)
[2022-07-29 20:00] LABS: Glucose,Whole Blood 245 mg/dL (70-110)
[2022-07-29] MEDS: INSULIN DETEMIR (LEVEMIR) 100 UNIT/ML SYR SQ SCH (20:58)
[2022-07-29] MEDS: AMITRIPTYLINE HCL 50 MG TAB PO SCH (20:59)
[2022-07-29] MEDS: PRAVASTATIN SODIUM 40 MG TAB PO SCH (20:59)
[2022-07-30 01:33] LABS: Glucose,Whole Blood 319 mg/dL (70-110)
[2022-07-30] MEDS: SODIUM CHLORIDE 0.9% 1,000 ML IV SCH ×3 (02:04→15:40)
[2022-07-30 02:49] LABS: Appearance,Urine Clear (Clear); Bacteria,Urine Rare /hpf; Bilirubin,Urine Negative (Negative); Blood,Urine Trace (Negative); Color,Urine Yellow; Glucose,Urine (UA) 3+ (Negative); Leukocyte Esterase,Urine Moderate (Negative); Nitrite,Urine Negative (Negative); Protein,Urine 2+ (Negative); RBC,Urine 7 /hpf (0-5); Specific Gravity,Urine 1.029 (1.001-1.035); Squamous Epithelial Cell,Urine <1 /hpf (0-4); WBC,Urine 23 /hpf (0-5)
[2022-07-30 02:51] LABS: Ketones,Urine 2+ (Negative)
[2022-07-30 05:27] LABS: African American GFR (CKD) >90 (>60 ml/min/1.73 sqM); Anion Gap 4 mmol/L; Blood Urea Nitrogen 11 mg/dL (9-20); Calcium 7.5 mg/dL (8.4-10.2); Carbon Dioxide 24 mmol/L (22-30); Chloride 106 mmol/L (98-107); Glucose 168 mg/dL (74-99); Non-African American GFR(CKD) >90 (>60 ml/min/1.73 sqM); Potassium 3.6 mmol/L (3.5-5.1); Sodium 134 mmol/L (137-145)
[2022-07-30 06:06] LABS: Glucose,Whole Blood 191 mg/dL (70-110)
[2022-07-30] MEDS: INSULIN ASPART (NovoLOG) 100 UNIT/ML VIAL SQ SCH ×3 (06:32→17:30)
[2022-07-30] MEDS: VANCOMYCIN 1,250 MG in SODIUM CHLORIDE 0.9% 250 ML IVPB SCH ×2 (06:33→17:30)
[2022-07-30] MEDS: PANTOPRAZOLE 40 MG TABLET PO SCH (06:34)
--- NOTE | 2022-07-30 08:28 | P.PN ---
Subjective Progress Note Date: 07/28/22 Principal diagnosis: UTI Patient is a 71-year male with a past medical history taken for diabetes mellitus hypertension seizure disorder presented to hospital with hematuria weakness patient has been diagnosed with a symptomatic urinary tract infection. On today's evaluation that is 07/28/2022 patient is afebrile the patient slightly more awake and alert is currently breathing comfortably no chest pain shortness with or cough no abdominal pain no diarrhea Objective - Vital Signs Vital signs: Vital Signs Temp 97.9 F 07/28/22 08:00 Pulse 99 07/28/22 08:00 Resp 17 07/28/22 08:00 BP 131/67 07/28/22 08:00 Pulse Ox 90 L 07/28/22 08:00 FiO2 Intake & Output 07/27/22 07/28/22 07/28/22 18:59 06:59 18:59 Other: Voiding Method External Catheter - Exam GENERAL DESCRIPTION: Elderly male up in the chair, no distress. No tachypnea or accessory muscle of respiration use. LUNGS: Unlabored breathing. Clear to auscultation anteriorly. No wheeze or crackle. HEART: S1, S2, regular rate and rhythm. No loud murmur ABDOMEN: Soft, no tenderness , guarding or rigidity, no organomegaly EXTREMITIES: No edema of feet. - Labs CBC & Chem 7: 07/29/22 06:13 07/30/22 04:16 Labs: Abnormal Lab Results - Last 24 Hours (Table) 07/27/22 07/27/22 07/28/22 Range/Units 18:38 20:53 03:02 POC Glucose (mg/dL) 177 H 183 H 221 H (70-110) mg/dL 07/28/22 07/28/22 Range/Units 06:13 11:29 POC Glucose (mg/dL) 183 H 121 H (70-110) mg/dL Microbiology - Last 24 Hours (Table) 07/26/22 19:15 Blood Culture - Preliminary Blood No Growth after 24 hours 07/26/22 18:56 Urine Culture - Preliminary Urine,Voided 07/26/22 19:33 Blood Culture - Preliminary Blood No Growth after 24 hours Assessment and Plan (1) UTI (urinary tract infection) Current Visit: No Status: Acute Code(s): N39.0 - URINARY TRACT INFECTION, SITE NOT SPECIFIED SNOMED Code(s): 51572879 Plan: 1patient presented to hospital with generalized weakness did have some difficulty urination apparently some hematuria and flank pain concerning for possible pyelonephritis in this patient who did have elevated white count and a low-grade fever on presentation the hospital ultrasound did not show any evidence of hydronephrosis or renal stone. 2penicillin allergy that would limit the number of antibiotics safe to use. 3patient to continue with Rocephin 2 g daily while waiting for the culture to finalize. Time with Patient: Less than 30
--- NOTE | 2022-07-30 08:30 | P.PN ---
Subjective Progress Note Date: 07/29/22 Principal diagnosis: UTI Patient is a 71-year male with a past medical history taken for diabetes mellitus hypertension seizure disorder presented to hospital with hematuria weakness patient has been diagnosed with a symptomatic urinary tract infection. On today's evaluation that is 07/29/2022 patient remains to be afebrile the patient is more awake and alert, the patient is breathing comfortably no chest pain shortness with or cough no abdominal pain no diarrhea Objective - Vital Signs Vital signs: Vital Signs Temp 98.4 F 07/29/22 14:00 Pulse 103 H 07/29/22 14:00 Resp 18 07/29/22 14:00 BP 132/63 07/29/22 14:00 Pulse Ox 94 L 07/29/22 14:00 FiO2 Intake & Output 07/28/22 07/29/22 07/29/22 19:59 06:59 18:59 Intake Total Output Total Balance Intake: Intake, IV Titration Amount Sodium Chloride 0.9% 1, 000 ml @ 130 mls/hr IV . Q7H42M [facility] Rx#:[id number] cefTRIAXone 2 gm In Sodium Chloride 0.9% 50 ml @ 100 mls/hr IVPB Q24HR [facility] Rx#:[id number] Output: Urine Other: Voiding Method External Catheter # Bowel Movements - Exam GENERAL DESCRIPTION: Elderly male up in the chair, no distress. No tachypnea or accessory muscle of respiration use. LUNGS: Unlabored breathing. Clear to auscultation anteriorly. No wheeze or crackle. HEART: S1, S2, regular rate and rhythm. No loud murmur ABDOMEN: Soft, no tenderness , guarding or rigidity, no organomegaly EXTREMITIES: No edema of feet. - Labs CBC & Chem 7: 07/29/22 06:13 07/30/22 04:16 Labs: Abnormal Lab Results - Last 24 Hours (Table) 07/28/22 07/29/22 07/29/22 Range/Units 19:11 06:08 06:13 WBC 11.49 H (4.50-10.00) X 10*3/uL RBC 3.62 L (4.40-5.60) X 10*6/uL Hgb 10.7 L (13.0-17.0) g/dL Hct 33.1 L (39.6-50.0) % Neutrophils # 9.56 H (1.80-7.70) X 10*3/uL Lymphocytes # 0.89 L (0.90-5.00) X 10*3/uL BUN/Creatinine Ratio (12.00-20.00) Ratio Glucose (70-110) mg/dL POC Glucose (mg/dL) 282 H 177 H (70-110) mg/dL Calcium (8.7-10.3) mg/dL Alkaline Phosphatase (41-126) U/L Total Protein (6.2-8.2) g/dL Albumin (3.8-4.9) g/dL 07/29/22 07/29/22 07/29/22 Range/Units 06:13 11:52 16:33 WBC (4.50-10.00) X 10*3/uL RBC (4.40-5.60) X 10*6/uL Hgb (13.0-17.0) g/dL Hct (39.6-50.0) % Neutrophils # (1.80-7.70) X 10*3/uL Lymphocytes # (0.90-5.00) X 10*3/uL BUN/Creatinine Ratio 20.88 H (12.00-20.00) Ratio Glucose 150 H (70-110) mg/dL POC Glucose (mg/dL) 161 H 161 H (70-110) mg/dL Calcium 8.1 L (8.7-10.3) mg/dL Alkaline Phosphatase 135 H (41-126) U/L Total Protein 5.6 L (6.2-8.2) g/dL Albumin 3.5 L (3.8-4.9) g/dL Microbiology - Last 24 Hours (Table) 07/26/22 19:15 Blood Culture - Preliminary Blood No Growth after 48 hours 07/26/22 19:33 Blood Culture - Preliminary Blood No Growth after 48 hours 07/26/22 18:56 Urine Culture - Preliminary Urine,Voided Group D Enterococcus Assessment and Plan (1) UTI (urinary tract infection) Current Visit: No Status: Acute Code(s): N39.0 - URINARY TRACT INFECTION, SITE NOT SPECIFIED SNOMED Code(s): 08851573 Plan: 1patient presented to hospital with generalized weakness did have some difficulty urination apparently some hematuria and flank pain concerning for possible pyelonephritis in this patient who did have elevated white count and a low-grade fever on presentation the hospital ultrasound did not show any evidence of hydronephrosis or renal stone. 2penicillin allergy that would limit the number of antibiotics safe to use. 3the patient urine has been finalized with Enterococcus with sensitivities pending patient is unfortunately allergic to penicillin we will go ahead and discontinue Rocephin and start the patient on vancomycin pending sensitivities and monitor clinical course closely Time with Patient: Less than 30
[2022-07-30] MEDS: lisinopriL 5 MG TAB PO SCH (08:57)
[2022-07-30] MEDS: lamoTRIgine 100 MG TAB PO SCH ×2 (08:57→21:19)
[2022-07-30] MEDS: CARBIDOPA-LEVODOPA 25-100 MG 1 EACH TAB PO SCH ×3 (08:58→21:19)
[2022-07-30] MEDS: PARoxetine 20 MG TAB PO SCH (08:58)
[2022-07-30] MEDS: FAMOTIDINE 20 MG TAB PO SCH (08:58)
[2022-07-30] MEDS: CALCIUM CARBONATE 500 MG CHEWABLE PO SCH (08:58)
[2022-07-30] MEDS: ENOXAPARIN 40 MG/0.4 ML SYRINGE SQ SCH (08:58)
[2022-07-30] MEDS: LACTULOSE 20 GM/30 ML CUP PO SCH ×2 (08:58→21:19)
[2022-07-30] MEDS: MULTIVITAMINS, THERA 1 EACH TAB PO SCH (08:58)
[2022-07-30 11:22] LABS: Glucose,Whole Blood 98 mg/dL (70-110)
--- NOTE | 2022-07-30 11:24 | P.PN ---
Subjective Progress Note Date: 07/30/22 CHIEF COMPLAINT: Fecal impaction HISTORY OF PRESENT ILLNESS: Patient is more alert today. He is having bowel movements. He is tolerating diet. No nausea or vomiting. Denies any abdominal pain. Afebrile. PHYSICAL EXAM: VITAL SIGNS: Reviewed. GENERAL: Well-developed in no acute distress. ABDOMEN: Soft. Mild distention. Nontender. ASSESSMENT: 1. Fecal impaction status post flexible sigmoidoscopy with manual disimpaction 2. UTI PLAN: -Continue regular diet -Continue stool softeners -Increase activity as tolerated -Continue supportive care -Antibiotics per ID service for UTI Physician Fire Officer note has been reviewed by physician. Signing provider agrees with the documented findings, assessment, and plan of care. I have personally seen and examined the patient, reviewed the HYDRAMATIC SPECIALIST /PAs history, exam and MDM and agree with the assessment and plan as written. Based on total visit time, I have performed more than 50% of the visit. As above: Patient had 2 bowel ends today. Patient is distended however on exam. Denies pain. Repeat abdominal x-rays tomorrow. Continue stool so fteners. Objective - Vital Signs Vital signs: Vital Signs Temp 98.4 F 07/30/22 08:00 Pulse 91 07/30/22 08:00 Resp 18 07/30/22 08:00 BP 145/67 07/30/22 08:00 Pulse Ox 90 L 07/30/22 08:00 FiO2 Intake & Output 07/29/22 07/30/22 07/30/22 18:59 06:59 18:59 Intake Total 1610 Output Total 125 350 550 Balance 1485 -350 -550 Intake: Intake, IV Titration 1610 Amount Sodium Chloride 0.9% 1, 1560 000 ml @ 130 mls/hr IV . Q7H42M [facility] Rx#:[id number] cefTRIAXone 2 gm In 50 Sodium Chloride 0.9% 50 ml @ 100 mls/hr IVPB Q24HR [facility] Rx#:[id number] Output: Urine 125 350 550 Other: Voiding Method External Catheter Diaper Diaper External Catheter # Voids 2 # Bowel Movements 7 3 1 - Labs CBC & Chem 7: 07/29/22 06:13 07/30/22 04:16 Labs: Abnormal Lab Results - Last 24 Hours (Table) 07/29/22 07/29/22 07/29/22 Range/Units 06:13 06:13 11:52 Sodium (137-145) mmol/L Creatinine (0.66-1.25) mg/dL BUN/Creatinine Ratio 20.88 H (12.00-20.00) Ratio Glucose 150 H (70-110) mg/dL POC Glucose (mg/dL) 161 H (70-110) mg/dL Calcium 8.1 L (8.7-10.3) mg/dL Alkaline Phosphatase 135 H (41-126) U/L Total Protein 5.6 L (6.2-8.2) g/dL Albumin 3.5 L (3.8-4.9) g/dL Vitamin B12 187.0 L (200.0-944.0) pg/mL Urine Protein (Negative) Urine Glucose (UA) (Negative) Urine Ketones (Negative) Urine Blood (Negative) Ur Leukocyte Esterase (Negative) Urine RBC (0-5) /hpf Urine WBC (0-5) /hpf Urine Bacteria (None) /hpf 07/29/22 07/29/22 07/29/22 Range/Units 16:33 19:57 19:58 Sodium (137-145) mmol/L Creatinine (0.66-1.25) mg/dL BUN/Creatinine Ratio (12.00-20.00) Ratio Glucose (70-110) mg/dL POC Glucose (mg/dL) 161 H >600 H 245 H (70-110) mg/dL Calcium (8.7-10.3) mg/dL Alkaline Phosphatase (41-126) U/L Total Protein (6.2-8.2) g/dL Albumin (3.8-4.9) g/dL Vitamin B12 (200.0-944.0) pg/mL Urine Protein (Negative) Urine Glucose (UA) (Negative) Urine Ketones (Negative) Urine Blood (Negative) Ur Leukocyte Esterase (Negative) Urine RBC (0-5) /hpf Urine WBC (0-5) /hpf Urine Bacteria (None) /hpf 07/30/22 07/30/22 07/30/22 Range/Units 01:31 02:20 04:16 Sodium 134 L (137-145) mmol/L Creatinine 0.59 L (0.66-1.25) mg/dL BUN/Creatinine Ratio (12.00-20.00) Ratio Glucose 168 H (70-110) mg/dL POC Glucose (mg/dL) 319 H (70-110) mg/dL Calcium 7.5 L (8.7-10.3) mg/dL Alkaline Phosphatase (41-126) U/L Total Protein (6.2-8.2) g/dL Albumin (3.8-4.9) g/dL Vitamin B12 (200.0-944.0) pg/mL Urine Protein 2+ H (Negative) Urine Glucose (UA) 3+ H (Negative) Urine Ketones 2+ H (Negative) Urine Blood Trace H (Negative) Ur Leukocyte Esterase Moderate H (Negative) Urine RBC 7 H (0-5) /hpf Urine WBC 23 H (0-5) /hpf Urine Bacteria Rare H (None) /hpf 07/30/22 Range/Units 06:05 Sodium (137-145) mmol/L Creatinine (0.66-1.25) mg/dL BUN/Creatinine Ratio (12.00-20.00) Ratio Glucose (70-110) mg/dL POC Glucose (mg/dL) 191 H (70-110) mg/dL Calcium (8.7-10.3) mg/dL Alkaline Phosphatase (41-126) U/L Total Protein (6.2-8.2) g/dL Albumin (3.8-4.9) g/dL Vitamin B12 (200.0-944.0) pg/mL Urine Protein (Negative) Urine Glucose (UA) (Negative) Urine Ketones (Negative) Urine Blood (Negative) Ur Leukocyte Esterase (Negative) Urine RBC (0-5) /hpf Urine WBC (0-5) /hpf Urine Bacteria (None) /hpf Microbiology - Last 24 Hours (Table) 07/30/22 02:20 Urine Culture - Preliminary Urine,Voided 07/26/22 19:15 Blood Culture - Preliminary Blood No Growth after 72 hours 07/26/22 18:56 Urine Culture - Final Urine,Voided Enterococcus faecalis 07/26/22 19:33 Blood Culture - Preliminary Blood No Growth after 72 hours
[2022-07-30 12:34] VITALS: BMI 19.0
--- NOTE | 2022-07-30 14:59 | P.PN ---
Subjective Progress Note Date: 07/30/22 The patient was seen at bedside and per the patient's nurse continues to have some mild tremors but they're not at resting and somewhat confused. Objective - Vital Signs Vital signs: Vital Signs Temp 98.4 F 07/30/22 08:00 Pulse 91 07/30/22 08:00 Resp 18 07/30/22 08:00 BP 145/67 07/30/22 08:00 Pulse Ox 90 L 07/30/22 08:00 FiO2 Intake & Output 07/29/22 07/30/22 07/30/22 18:59 06:59 18:59 Intake Total 1610 Output Total 125 350 550 Balance 1485 -350 -550 Weight 63.503 kg Intake: Intake, IV Titration 1610 Amount Sodium Chloride 0.9% 1, 1560 000 ml @ 130 mls/hr IV . Q7H42M [facility] Rx#:[id number] cefTRIAXone 2 gm In 50 Sodium Chloride 0.9% 50 ml @ 100 mls/hr IVPB Q24HR [facility] Rx#:[id number] Output: Urine 125 350 550 Other: Voiding Method External Catheter Diaper Diaper External Catheter # Voids 2 # Bowel Movements 7 3 1 - Exam GENERAL: The patient is lying in bed and is not in acute distress. NEUROLOGICAL: Higher mental function: The patient is awake, alert, oriented to self, stated he was in hospital and oriented to time. He seems more responsive today. He is following simple commands. Has some word finding difficulty. No aphasia or neglect. Cranial nerves: The pupils are round, equal and reactive to light. Visual field s are full to confrontation throughout. Extraocular movement is tracking through out the room and no appreciateable nystagmus. No facial weakness. i Hearing is severely decreased bilaterally to hand rub. Tongue is midline and moved [id number] without any difficulty. No dysarthria is noted. Patient appears somewhat mask-like facies. Shoulder shrug is normal bilaterally. Motor: The strength is 5 over 5 throughout. Some increase tone at wrists and elbows at time. Has mild tremors and seems more with action but seems somewhat improved today. Normal bulk. Cerebellum: Normal finger to nose bilaterally. Sensation: Sensation is normal to touch throughout. Reflexes (right/left):1 + Plantars is mute over the left at baseline. Mute over the right. Some of the workup during his hospital visit consisted of: Vitamin B12: 187 (deficient and normal is 200-944). Folate is 12.8 TSH: 2.65 CK is 101 HbA1c: 8.0 CT of the head is reported as age-related atrophic and chronic small vessel ischemic change without acute intracranial process seen at this time. I personally could not review the CT of the head because of issues with the system. Ammonia level is less than 9 Coronavirus is undetected Urine culture is E. Faecalis. - Labs CBC & Chem 7: 07/29/22 06:13 07/30/22 04:16 Labs: Abnormal Lab Results - Last 24 Hours (Table) 07/29/22 07/29/22 07/29/22 Range/Units 06:13 16:33 19:57 Sodium (137-145) mmol/L Creatinine (0.66-1.25) mg/dL Glucose (74-99) mg/dL POC Glucose (mg/dL) 161 H >600 H (70-110) mg/dL Calcium (8.4-10.2) mg/dL Vitamin B12 187.0 L (200.0-944.0) pg/mL Urine Protein (Negative) Urine Glucose (UA) (Negative) Urine Ketones (Negative) Urine Blood (Negative) Ur Leukocyte Esterase (Negative) Urine RBC (0-5) /hpf Urine WBC (0-5) /hpf Urine Bacteria (None) /hpf 07/29/22 07/30/22 07/30/22 Range/Units 19:58 01:31 02:20 Sodium (137-145) mmol/L Creatinine (0.66-1.25) mg/dL Glucose (74-99) mg/dL POC Glucose (mg/dL) 245 H 319 H (70-110) mg/dL Calcium (8.4-10.2) mg/dL Vitamin B12 (200.0-944.0) pg/mL Urine Protein 2+ H (Negative) Urine Glucose (UA) 3+ H (Negative) Urine Ketones 2+ H (Negative) Urine Blood Trace H (Negative) Ur Leukocyte Esterase Moderate H (Negative) Urine RBC 7 H (0-5) /hpf Urine WBC 23 H (0-5) /hpf Urine Bacteria Rare H (None) /hpf 07/30/22 07/30/22 Range/Units 04:16 06:05 Sodium 134 L (137-145) mmol/L Creatinine 0.59 L (0.66-1.25) mg/dL Glucose 168 H (74-99) mg/dL POC Glucose (mg/dL) 191 H (70-110) mg/dL Calcium 7.5 L (8.4-10.2) mg/dL Vitamin B12 (200.0-944.0) pg/mL Urine Protein (Negative) Urine Glucose (UA) (Negative) Urine Ketones (Negative) Urine Blood (Negative) Ur Leukocyte Esterase (Negative) Urine RBC (0-5) /hpf Urine WBC (0-5) /hpf Urine Bacteria (None) /hpf Microbiology - Last 24 Hours (Table) 07/30/22 02:20 Urine Culture - Preliminary Urine,Voided 07/26/22 19:15 Blood Culture - Preliminary Blood No Growth after 72 hours 07/26/22 18:56 Urine Culture - Final Urine,Voided Enterococcus faecalis 07/26/22 19:33 Blood Culture - Preliminary Blood No Growth after 72 hours Assessment and Plan Assessment: Recurrent falls with tremors. Rule out Parkinson's disease (since has mild increase tone in uppers at time and shuffling gait) vs tremors due to essential. His falls also could be component of peripheral neuropathy from his diabetes and neuropathy due to vitamin B12 deficeint Vitamin B12 deficiency (187). Mild encephalopathy due to underlying urinary tract infection--currently oriented X2 Acute urinary tract infection Fecal impaction History of seizure Probable TIA in 2020 Diabetes mellitus type 2 with recent HbA1c 8.0 Plan: Because of the vitamin B12 deficiency, I started the patient on vitamin B12 IM thousand microgram daily for the next 3 days then after that by mouth. I r ecommend a repeat vitamin B12 2-4 weeks to assess if still deficient. Ordered orthostatic vitals I started the patient the on Sinemet 25-100 1 tab tid for possible Parkinson's to assess whether there is any benefit with his gait and tremors. If the patient continues to the have confusion will obtain and routine EEG for now we'll hold since she's responding. Physical therapy and occupation therapy are are consulted ID team is consulted for underlying urinary tract infection General surgery team is consulted for fecal impaction We'll defer the rest of the medical management the primary team Plan was discussed with the patient nurse. UPDATE: I spoke with the patient's (who is at bedside) and stated that patient has tremor some with rest and with action (mostly action) for the past 6 months. He had two falls at home in past one month and one while in bathroom and possibly tripped over and other while on couch and not sure if tried to stand up and result fall but no lost of consciousness. 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 Horn for his seizure and was told not epileptic in nature. Last seizure episode was 1 year ago. Today the feels he is more lucid and his tremor is better than what he was at home after start on Sinement. I notified her will Keep Sinement medication for now and tomorrow, she will update us if his tremors continues to be improved. Time with Patient: Less than 30
[2022-07-30] MEDS: CYANOCOBALAMIN 1,000 MCG/ML 1 ML VIAL IM SCH (15:43)
[2022-07-30 16:55] LABS: Glucose,Whole Blood 143 mg/dL (70-110)
--- NOTE | 2022-07-30 17:00 | P.PN ---
Subjective Progress Note Date: 07/30/22 This is 71-year-old male patient who presents to the ER with complaints of hematuria starting about 2 days ago. According to ER records patient had difficulty urinating with some right flank pain with a low-grade temperature. Patient has past medical history of diabetes mellitus, high disorder, hyperte nsion, seizure disorder, encephalopathy. CT of abdomen and pelvis completed without contrast showing rectal fecal impaction normal appendix. Chest x-ray completed showing no active cardiopulmonary disease. Inspiration decreased compared to old exam. COVID-19 negative. UA positive for urinary tract infection. White blood cell elevated at 14.2. Vital signs temp 99.8, pulse rate 99, respiratory rate 14, blood pressure 124/70 with a pulse ox 98% room air. Patient has been started on IV antibiotics. Urine blood and sputum cultures ordered. This time patient is resting comfortably in bed. Patient is alert and oriented 2. Patient denies chest pain or shortness breath. Patient denies nausea vomiting or diarrhea. Patient denies any urinary burning or frequency On 07/28/2022 patient was seen and examined on the medical floor he is alert, slightly confused in no apparent distress there is no fever or chills no headache or dizziness no chest pain no shortness of breath no cough no nausea or vomiting no abdominal pain no diarrhea no blood in the stools he has a Stanley catheter in, and urine in the catheter bag is bloody. Patient underwent flexible sigmoidoscopy with manual disimpaction yesterday, he feels significant relief after procedure. Today patient is sitting up in a chair he is alert and trying to answer questions but he seems to be confused, which is a change from his baseline prior to admission, a neurology consultation will be requested in that regard. On 07/29/2022 patient is alert and oriented sitting up in chair. Patient does seem to have some slight confusion. Patient was seen by neurology services awaiting further recommendations. Patient does report improvement since fecal disimpaction patient remains on Rocephin per infectious disease. At this time patient denies chest pain or shortness breath. Patient denies nausea vomiting or diarrhea. Patient denies any urinary burning or frequency. On 07/30/2022 patient was seen and examined on the medical floor he is alert and oriented in no distress, today his is at the bedside. Patient does seem to have some slight confusion, he is still having difficulty finding words. Patient was seen by neurology services, Dr. Yoon advised that patient has Parkinson disease he was started on Sinemet during this admission Patient does report improvement since fecal disimpaction patient remains on Rocephin per infectious disease. At this time patient denies chest pain or shortness breath. Patient denies nausea vomiting or diarrhea. He has Stanley catheter in and urine is less bloody today. Objective - Vital Signs Vital signs: Vital Signs Temp 98.4 F 07/30/22 08:00 Pulse 91 07/30/22 08:00 Resp 18 07/30/22 08:00 BP 145/67 07/30/22 08:00 Pulse Ox 90 L 07/30/22 08:00 FiO2 Intake & Output 07/29/22 07/30/22 07/30/22 18:59 06:59 18:59 Intake Total 1610 Output Total 125 350 550 Balance 1485 -350 -550 Intake: Intake, IV Titration 1610 Amount Sodium Chloride 0.9% 1, 1560 000 ml @ 130 mls/hr IV . Q7H42M [facility] Rx#:[id number] cefTRIAXone 2 gm In 50 Sodium Chloride 0.9% 50 ml @ 100 mls/hr IVPB Q24HR [facility] Rx#:[id number] Output: Urine 125 350 550 Other: Voiding Method External Catheter Diaper Diaper External Catheter # Voids 2 # Bowel Movements 7 3 1 - Exam Head normocephalic and atraumatic Neck supple no JVD Lungs clear to auscultation bilaterally no wheezing or crackles Heart regular rate and rhythm S1-S2, no rub or gallop Abdomen is soft nontender nondistended positive bowel sounds no hepatosplenomegaly Extremities no edema Neuro alert slightly confused in no apparent distress - Labs CBC & Chem 7: 07/29/22 06:13 07/30/22 04:16 Labs: Abnormal Lab Results - Last 24 Hours (Table) 07/29/22 07/29/22 07/29/22 Range/Units 06:13 06:13 11:52 Sodium (137-145) mmol/L Creatinine (0.66-1.25) mg/dL BUN/Creatinine Ratio 20.88 H (12.00-20.00) Ratio Glucose 150 H (70-110) mg/dL POC Glucose (mg/dL) 161 H (70-110) mg/dL Calcium 8.1 L (8.7-10.3) mg/dL Alkaline Phosphatase 135 H (41-126) U/L Total Protein 5.6 L (6.2-8.2) g/dL Albumin 3.5 L (3.8-4.9) g/dL Vitamin B12 187.0 L (200.0-944.0) pg/mL Urine Protein (Negative) Urine Glucose (UA) (Negative) Urine Ketones (Negative) Urine Blood (Negative) Ur Leukocyte Esterase (Negative) Urine RBC (0-5) /hpf Urine WBC (0-5) /hpf Urine Bacteria (None) /hpf 07/29/22 07/29/22 07/29/22 Range/Units 16:33 19:57 19:58 Sodium (137-145) mmol/L Creatinine (0.66-1.25) mg/dL BUN/Creatinine Ratio (12.00-20.00) Ratio Glucose (70-110) mg/dL POC Glucose (mg/dL) 161 H >600 H 245 H (70-110) mg/dL Calcium (8.7-10.3) mg/dL Alkaline Phosphatase (41-126) U/L Total Protein (6.2-8.2) g/dL Albumin (3.8-4.9) g/dL Vitamin B12 (200.0-944.0) pg/mL Urine Protein (Negative) Urine Glucose (UA) (Negative) Urine Ketones (Negative) Urine Blood (Negative) Ur Leukocyte Esterase (Negative) Urine RBC (0-5) /hpf Urine WBC (0-5) /hpf Urine Bacteria (None) /hpf 07/30/22 07/30/22 07/30/22 Range/Units 01:31 02:20 04:16 Sodium 134 L (137-145) mmol/L Creatinine 0.59 L (0.66-1.25) mg/dL BUN/Creatinine Ratio (12.00-20.00) Ratio Glucose 168 H (70-110) mg/dL POC Glucose (mg/dL) 319 H (70-110) mg/dL Calcium 7.5 L (8.7-10.3) mg/dL Alkaline Phosphatase (41-126) U/L Total Protein (6.2-8.2) g/dL Albumin (3.8-4.9) g/dL Vitamin B12 (200.0-944.0) pg/mL Urine Protein 2+ H (Negative) Urine Glucose (UA) 3+ H (Negative) Urine Ketones 2+ H (Negative) Urine Blood Trace H (Negative) Ur Leukocyte Esterase Moderate H (Negative) Urine RBC 7 H (0-5) /hpf Urine WBC 23 H (0-5) /hpf Urine Bacteria Rare H (None) /hpf 07/30/22 Range/Units 06:05 Sodium (137-145) mmol/L Creatinine (0.66-1.25) mg/dL BUN/Creatinine Ratio (12.00-20.00) Ratio Glucose (70-110) mg/dL POC Glucose (mg/dL) 191 H (70-110) mg/dL Calcium (8.7-10.3) mg/dL Alkaline Phosphatase (41-126) U/L Total Protein (6.2-8.2) g/dL Albumin (3.8-4.9) g/dL Vitamin B12 (200.0-944.0) pg/mL Urine Protein (Negative) Urine Glucose (UA) (Negative) Urine Ketones (Negative) Urine Blood (Negative) Ur Leukocyte Esterase (Negative) Urine RBC (0-5) /hpf Urine WBC (0-5) /hpf Urine Bacteria (None) /hpf Microbiology - Last 24 Hours (Table) 07/30/22 02:20 Urine Culture - Preliminary Urine,Voided 07/26/22 19:15 Blood Culture - Preliminary Blood No Growth after 72 hours 07/26/22 18:56 Urine Culture - Final Urine,Voided Enterococcus faecalis 07/26/22 19:33 Blood Culture - Preliminary Blood No Growth after 72 hours Assessment and Plan Plan: 1. Hematuria secondary to urinary tract infection 2. Dehydration. Continue IV fluid 3. Fecal impaction. Enema ordered surgical service is consulted 4. Altered mental status changes. Head CT ordered 5. Hyperglycemia secondary diabetes mellitus type 2, insulin resumed + scale coverage 6. History of Essential hypertension 8. History of Hyperlipidemia 9. Diabetes mellitus type 2 10. Depression Ultrasound of kidneys and bladder ordered Head CT ordered Infectious disease and surgical services ordered Fleet enemas ordered Ammonia level repeat labs ordered
[2022-07-30] MEDS: INSULIN DETEMIR (LEVEMIR) 100 UNIT/ML SYR SQ SCH (21:18)
[2022-07-30] MEDS: AMITRIPTYLINE HCL 50 MG TAB PO SCH (21:18)
[2022-07-30] MEDS: PRAVASTATIN SODIUM 40 MG TAB PO SCH (21:19)
[2022-07-30 21:28] LABS: Glucose,Whole Blood 203 mg/dL (70-110)
[2022-07-31 01:35] LABS: Glucose,Whole Blood 237 mg/dL (70-110)
--- NOTE | 2022-07-31 04:56 | P.CONS ---
History of Present Illness - Chief Complaint Gait disturbance, encephalopathy - History of Present Illness I had the opportunity to see patient for inpatient rehab consultation with regard to gait disturbance. Patient admitted the Dr. Simons July 26 history 2 days low temperature and right flank pain. Diagnoses pneumonia and UTI. Seen by surgery, Dr. Paredes. Seen by Dr. Nguyen for pyelonephritis. Some by Dr. carmona who did colonoscopy and diagnosed large fecal bolus. Seen by neurology, Dr. Rei Yoon who diagnosed encephalopathy and possible Parkinson. Abdominal ultrasound negative for uropathy. Head CT with age-related and chronic change. Chest x-ray negative. Has started therapy. PT reports minimal assistance for bed mobility, minimal assistance for transfer and minimal assistance for gait 1 foot with roller walker. OT reports independent with feeding, minimal assistance for grooming and upper dressing, moderate assistance for lower dressing, bathing, toileting. Minimal assistance functional mobility and transfer. Previous functional history as elicited from patient: 71-year-old right-handed white male who is lives and 2 floor home with . Both are retired. does cooking, laundry, driving. assists patient with sponge bath and dressing. Does not require assistive device for gait. PCP Dr. Aquino and her jar. Review of Systems Review of systems: ENT: Denies sneezes or discharge. Eyes: Denies discharge or photophobia. Cardiac: Denies chest pain or palpitation. Pulmonary: Denies cough or shortness of breath. Gastrointestinal: Denies nausea, emesis, constipation, diarrhea. Genitourinary: UTI symptoms. Musculoskeletal: Denies muscle or bone aches. Neurologic: At least mild generalized weakness. Endocrine: Denies shakes or sweats. Oncology: Denies cancers. Dermatologic: Denies rash, itching, pruritus. ALLERGY/immunology: Denies sneezes, rashes. Past Medical History Past Medical History: Diabetes Mellitus, Eye Disorder, Hypertension, Seizure Disorder Additional Past Medical History / Comment(s): encephalopathy; RASH LEFT ANKLE,VARICOSE VEINS,EYE FLOATERS,TREMORS,SEIZURES WITH LOW BLOOD SUGAR-LAST SEIZURE APPROX JUN 2015 History of Any Multi-Drug Resistant Organisms: None Reported Past Surgical History: Orthopedic Surgery Additional Past Surgical History / Comment(s): cataracts bilateral. total left knee. left index finger thea placement Past Anesthesia/Blood Transfusion Reactions: No Reported Reaction Past Psychological History: No Psychological Hx Reported Smoking Status: Never smoker Past Alcohol Use History: None Reported Additional Past Alcohol Use History / Comment(s): QUIT SMOKING 1974,STARTED 1973 Past Drug Use History: None Reported - Past Family History Brother(s) Family Medical History: Diabetes Mellitus Sister(s) Family Medical History: Diabetes Mellitus Additional Family Medical History / Comment(s): MS Father Family Medical History: Cancer, Diabetes Mellitus Additional Family Medical History / Comment(s): COLON CA Medications and Allergies Home Medications Medication Instructions Recorded Confirmed Type Amitriptyline HCl [Elavil] 50 mg PO HS 03/28/14 07/26/22 History Insulin Glargine [Lantus Vial] 22 units SQ HS 03/28/14 07/26/22 History Multivitamin [Men's Multi-Vitamin] 1 tab PO W/SUPPER 03/28/14 07/26/22 History lamoTRIgine 200 mg PO BID-W/MEALS 03/28/14 07/26/22 History Aspirin EC [Ecotrin] 325 mg PO W/SUPPER 04/09/16 07/26/22 History Pravastatin Sodium [Pravachol] 40 mg PO HS 06/29/20 07/26/22 History Calcium Carbonate [Calcium] 600 mg PO DAILY 02/20/21 07/26/22 History lisinopriL [Zestril] 5 mg PO DAILY 30 Days #30 tab 02/24/21 07/26/22 Rx INSULIN ASPART (NovoLOG) [NovoLOG See Protocol SQ AC-TID 07/26/22 07/26/22 History (formulary)] PARoxetine HCL [Paxil] 20 mg PO DAILY 07/26/22 07/26/22 History Allergies Allergy/AdvReac Type Severity Reaction Status Date / Time Penicillins Allergy Rash/Hives Verified 07/26/22 14:54 Physical Exam Vitals: Vital Signs Temp Pulse Resp BP Pulse Ox 07/31/22 02:00 97.3 F L 80 17 149/70 96 07/30/22 21:32 106 H 17 07/30/22 19:31 98.2 F 106 H 17 156/75 90 L 07/30/22 14:00 98.2 F 96 18 151/70 90 L 07/30/22 08:00 98.4 F 91 18 145/67 90 L Intake and Output 07/30/22 07/30/22 07/31/22 14:59 22:59 06:59 Intake Total 1080 Output Total 550 700 Balance -550 380 Intake: Oral 1080 Output: Urine 550 700 Other: Voiding Method Diaper Diaper External Catheter External Catheter # Bowel Movements 1 2 Weight 63.503 kg Skin: Atrophic, intact. General: Thin build and comfortable appearance. Head: Normocephalic, atraumatic. Eyes: Symmetric. Pupils equal round. Ears: Symmetric. Hearing within normal limits. Mouth: Clear. Neck: Supple. Carotid without bruit. Cardiac: Regular rate and rhythm. Lungs: Clear anteriorly and posteriorly. Abdomen: Soft active nontender. Extremities: Normal tone. Neurological: Mental status: Alert, cooperative, pleasant. Cranial nerves: Symmetric facial tone and trapezius. Motor: Able to actively elevate all 4 limbs off of bed. Sensation: Intact throughout. DTRs: Symmetric and equal throughout. Mobility: Did not attempt to sit or stand this early a.m. Results CBC & Chem 7: 07/29/22 06:13 07/30/22 04:16 Labs: Abnormal Lab Results - Last 24 Hours (Table) 07/30/22 07/30/22 07/30/22 Range/Units 04:16 06:05 16:50 Sodium 134 L (137-145) mmol/L Creatinine 0.59 L (0.66-1.25) mg/dL Glucose 168 H (74-99) mg/dL POC Glucose (mg/dL) 191 H 143 H (70-110) mg/dL Calcium 7.5 L (8.4-10.2) mg/dL 07/30/22 07/31/22 Range/Units 21:26 01:34 Sodium (137-145) mmol/L Creatinine (0.66-1.25) mg/dL Glucose (74-99) mg/dL POC Glucose (mg/dL) 203 H 237 H (70-110) mg/dL Calcium (8.4-10.2) mg/dL Microbiology - Last 24 Hours (Table) 07/26/22 19:33 Blood Culture - Preliminary Blood No Growth after 96 hours 07/30/22 02:20 Urine Culture - Preliminary Urine,Voided 07/26/22 19:15 Blood Culture - Preliminary Blood No Growth after 72 hours Assessment and Plan (1) Febrile illness, acute Current Visit: Yes Status: Acute Code(s): R50.9 - FEVER, UNSPECIFIED SNOMED Code(s): 759184360 (2) Fecal impaction in rectum Current Visit: Yes Status: Acute Code(s): K56.41 - FECAL IMPACTION SNOMED Code(s): 9505669394 (3) Hematuria Current Visit: Yes Status: Acute Code(s): R31.9 - HEMATURIA, UNSPECIFIED SNOMED Code(s): 57167950 (4) DKA (diabetic ketoacidoses) Current Visit: No Status: Acute Code(s): E13.10 - OTH DIABETES MELLITUS WITH KETOACIDOSIS WITHOUT COMA SNOMED Code(s): 280126693 (5) UTI (urinary tract infection) Current Visit: No Status: Acute Code(s): N39.0 - URINARY TRACT INFECTION, SITE NOT SPECIFIED SNOMED Code(s): 13796985 Plan: Comments and plan: Diagnoses should include and cephalopathy related all the diagnoses above. At this time rehab prognosis really determined by and what 's goals are. We need to determine these for possible inpatient rehab versus alternative discharge plan. Note patient and was safety concerns and has demonstrated some ability to tolerate and benefit from therapies.
[2022-07-31 05:58] LABS: Glucose,Whole Blood 133 mg/dL (70-110)
[2022-07-31] MEDS: VANCOMYCIN 1,250 MG in SODIUM CHLORIDE 0.9% 250 ML IVPB SCH ×2 (06:29→17:34)
[2022-07-31] MEDS: SODIUM CHLORIDE 0.9% 1,000 ML IV SCH ×3 (06:33→11:46)
[2022-07-31] MEDS: INSULIN ASPART (NovoLOG) 100 UNIT/ML VIAL SQ SCH ×3 (06:36→16:49)
[2022-07-31] MEDS: PANTOPRAZOLE 40 MG TABLET PO SCH (06:37)
--- NOTE | 2022-07-31 08:06 | XR ---
EXAMINATION TYPE: XR abdomen 2V DATE OF EXAM: 07/31/2022 6:24 AM INDICATION: Patient age:Male; 71 years old; Reason for study: Follow-up ileus; COMPARISON: CT 07/26/2022 TECHNIQUE: Two views of the abdomen were obtained. FINDINGS: Large stool burden within the rectum similar given differences in technique as prior CT. No abnormal opacifications. IMPRESSION: Large stool burden in the rectum, which correlates with prior CT and could represent stercoral coliti s. Fecal disimpaction recommended.
[2022-07-31 08:36] LABS: ALT 29 U/L (4-49); AST 58 U/L (17-59); African American GFR (CKD) >90 (>60 ml/min/1.73 sqM); Albumin 2.9 g/dL (3.5-5.0); Albumin/Globulin Ratio 1.3; Alkaline Phosphatase 196 U/L (38-126); Anion Gap 2 mmol/L; Blood Urea Nitrogen 6 mg/dL (9-20); Calcium 7.6 mg/dL (8.4-10.2); Carbon Dioxide 28 mmol/L (22-30); Chloride 105 mmol/L (98-107); Globulin 2.2 g/dL; Glucose 108 mg/dL (74-99); Non-African American GFR(CKD) >90 (>60 ml/min/1.73 sqM); Potassium 3.2 mmol/L (3.5-5.1); Sodium 135 mmol/L (137-145); Total Bilirubin 0.4 mg/dL (0.2-1.3); Total Protein 5.1 g/dL (6.3-8.2)
[2022-07-31] MEDS: lamoTRIgine 100 MG TAB PO SCH ×2 (08:45→21:58)
[2022-07-31] MEDS: FAMOTIDINE 20 MG TAB PO SCH (08:45)
[2022-07-31] MEDS: CALCIUM CARBONATE 500 MG CHEWABLE PO SCH (08:45)
[2022-07-31] MEDS: MULTIVITAMINS, THERA 1 EACH TAB PO SCH (08:45)
[2022-07-31] MEDS: LACTULOSE 20 GM/30 ML CUP PO SCH ×2 (08:45→21:14)
[2022-07-31] MEDS: ENOXAPARIN 40 MG/0.4 ML SYRINGE SQ SCH (08:45)
[2022-07-31] MEDS: PARoxetine 20 MG TAB PO SCH (08:45)
[2022-07-31] MEDS: CARBIDOPA-LEVODOPA 25-100 MG 1 EACH TAB PO SCH ×3 (08:45→21:58)
[2022-07-31] MEDS: lisinopriL 5 MG TAB PO SCH (08:45)
[2022-07-31] MEDS: CYANOCOBALAMIN 1,000 MCG/ML 1 ML VIAL IM SCH (08:45)
[2022-07-31] MEDS ORDERED: Potassium Replacement Protocol 1 EACH MISC MISCELLANE PRN (10:50)
[2022-07-31 10:55] LABS: Basophils # (A) 0.03 X 10*3/uL (0.00-0.10); Basophils % (A) 0.5 %; Eosinophils % (A) 4.7 %; HGB 10.3 g/dL (13.0-17.0); Immature Grans, Automated 0.3 %; Lymphocytes % (A) 15.6 %; MCH 30.2 pg (27.0-32.0); MCHC 33.2 g/dL (32.0-37.0); MCV 90.9 fL (80.0-97.0); Mean Platelet Volume 10.2 fL (9.5-12.2); Monocytes # (A) 0.65 X 10*3/uL (0.20-1.00); Monocytes % (A) 10.1 %; NRBC Per 100 WBC 0 /100 WBCS (0.0-0.0); Neutrophils # (A) 4.43 X 10*3/uL (1.80-7.70); Neutrophils % (A) 68.8 %; Platelet Count 306 X 10*3/uL (140-440); RBC 3.41 X 10*6/uL (4.40-5.60); RDW 12.5 % (11.5-14.5); WBC 6.43 X 10*3/uL (4.50-10.00)
[2022-07-31] MEDS: POTASSIUM CHLORIDE ER 20 MEQ TAB.ER PO SCH ×2 (11:06→12:28)
[2022-07-31 11:40] LABS: Glucose,Whole Blood 112 mg/dL (70-110)
--- NOTE | 2022-07-31 12:58 | P.PN ---
Subjective Progress Note Date: 07/31/22 The patient is seen at bedside and per nurse his tremor seems improving and patient is more responsive. is seeing drastic improvement after Sinement since she feels he is more talking, his voice is less hypophonic and feels has drastic less tremors. Objective - Vital Signs Vital signs: Vital Signs Temp 98.3 F 07/31/22 07:55 Pulse 89 07/31/22 07:55 Resp 17 07/31/22 07:55 BP 140/67 07/31/22 07:55 Pulse Ox 91 L 07/31/22 07:55 FiO2 Intake & Output 07/30/22 07/31/22 07/31/22 18:59 06:59 18:59 Intake Total 1080 Output Total 1250 1300 200 Balance -170 -1300 -200 Weight 63.503 kg Intake: Oral 1080 Output: Urine 1250 1300 200 Other: Voiding Method Diaper Diaper Diaper External Catheter External Catheter External Catheter # Bowel Movements 2 1 - Exam GENERAL: The patient is lying in bed and is not in acute distress. NEUROLOGICAL: Higher mental function: The patient is awake, alert, oriented to self, stated he was in hospital and oriented to time. He seems more responsive today. He is following simple commands. Has some word finding difficulty. No aphasia or neglect. Cranial nerves: The pupils are round, equal and reactive to light. Visual north are full to confrontation throughout. Extraocular movement is tracking through out the room and no appreciateable nystagmus. No facial weakness. i Hearing is severely decreased bilaterally to hand rub. Tongue is midline and moved [id number] without any difficulty. No dysarthria is noted. Patient appears somewhat mask-like facies. Shoulder shrug is normal bilaterally. Motor: The strength is 5 over 5 throughout. Some increase tone at wrists and elbows at time. Has mild tremors and seems more with action but seems somewhat improved for the past two days. Normal bulk. Cerebellum: Normal finger to nose bilaterally. Sensation: Sensation is normal to touch throughout. Reflexes (right/left):1 + Plantars is mute over the left at baseline. Mute over the right. Some of the workup during his hospital visit consisted of: Vitamin B12: 187 (deficient and normal is 200-944). Folate is 12.8 TSH: 2.65 CK is 101 HbA1c: 8.0 CT of the head is reported as age-related atrophic and chronic small vessel ischemic change without acute intracranial process seen at this time. I personally could not review the CT of the head because of issues with the system. Ammonia level is less than 9 Coronavirus is undetected Urine culture is E. Faecalis. - Labs CBC & Chem 7: 07/31/22 07:08 07/31/22 07:08 Labs: Abnormal Lab Results - Last 24 Hours (Table) 07/30/22 07/30/22 07/31/22 Range/Units 16:50 21:26 01:34 RBC (4.40-5.60) X 10*6/uL Hgb (13.0-17.0) g/dL Hct (39.6-50.0) % Sodium (137-145) mmol/L Potassium (3.5-5.1) mmol/L BUN (9-20) mg/dL Creatinine (0.66-1.25) mg/dL Glucose (74-99) mg/dL POC Glucose (mg/dL) 143 H 203 H 237 H (70-110) mg/dL Calcium (8.4-10.2) mg/dL Alkaline Phosphatase (38-126) U/L Total Protein (6.3-8.2) g/dL Albumin (3.5-5.0) g/dL 07/31/22 07/31/22 07/31/22 Range/Units 05:56 07:08 07:08 RBC 3.41 L (4.40-5.60) X 10*6/uL Hgb 10.3 L (13.0-17.0) g/dL Hct 31.0 L (39.6-50.0) % Sodium 135 L (137-145) mmol/L Potassium 3.2 L (3.5-5.1) mmol/L BUN 6 L (9-20) mg/dL Creatinine 0.58 L (0.66-1.25) mg/dL Glucose 108 H (74-99) mg/dL POC Glucose (mg/dL) 133 H (70-110) mg/dL Calcium 7.6 L (8.4-10.2) mg/dL Alkaline Phosphatase 196 H (38-126) U/L Total Protein 5.1 L (6.3-8.2) g/dL Albumin 2.9 L (3.5-5.0) g/dL 07/31/22 Range/Units 11:39 RBC (4.40-5.60) X 10*6/uL Hgb (13.0-17.0) g/dL Hct (39.6-50.0) % Sodium (137-145) mmol/L Potassium (3.5-5.1) mmol/L BUN (9-20) mg/dL Creatinine (0.66-1.25) mg/dL Glucose (74-99) mg/dL POC Glucose (mg/dL) 112 H (70-110) mg/dL Calcium (8.4-10.2) mg/dL Alkaline Phosphatase (38-126) U/L Total Protein (6.3-8.2) g/dL Albumin (3.5-5.0) g/dL Microbiology - Last 24 Hours (Table) 07/30/22 02:20 Urine Culture - Final Urine,Voided 07/26/22 19:15 Blood Culture - Preliminary Blood No Growth after 96 hours 07/26/22 19:33 Blood Culture - Preliminary Blood No Growth after 96 hours Assessment and Plan Assessment: * Recurrent falls with tremors (tremors for past 6 months). Probable Parkinson's disease (since has mild increase tone in uppers at time and shuffling gait, hypophonia) and feels his symptoms are improving after st art of Sinement. Some component of falls also could be component of peripheral neuropathy from his diabetes and neuropathy due to vitamin B12 deficiency. * Vitamin B12 deficiency (187). * Mild encephalopathy due to underlying urinary tract infection--mentation improving * Acute urinary tract infection * Fecal impaction * History of seizure provoked due to hypoglycemia (his stated episodes are not epileptic in nature) and last seizure was 1 year ago * Probable TIA in 2020 * Diabetes mellitus type 2 with recent HbA1c 8.0 Plan: Because of the vitamin B12 deficiency, Continue vitamin B12 IM thousand microgram daily for the next 2days then after that by mouth. I recommend a repeat vitamin B12 2-4 weeks to assess if still deficient. Ordered orthostatic vitals and pending to be completed I started the patient the on Sinemet 25-100 1 tab tid on 07/29/22for probable Parkinson's and per and she feels he is doing drastically better. Recommend MRI Brain w/o as outpatient to assess for any vascular insults that are old or anything contributing to his symptoms (seems unlikely). Physical therapy and occupation therapy are are consulted ID team is consulted for underlying urinary tract infection General surgery team is consulted for fecal impaction We'll defer the rest of the medical management the primary team. Upon discharge, recommend the patient to follow-up with neurologist as outpatient within 1-2 weeks. No additional work-up is needed. Plan was discussed with the patient's and his nurse. Time with Patient: Less than 30
--- NOTE | 2022-07-31 14:14 | P.PN ---
Subjective Progress Note Date: 07/31/22 CHIEF COMPLAINT: Fecal impaction HISTORY OF PRESENT ILLNESS: Patient is sitting up at bedside chair. He does have more abdominal distention. Reports that he was nauseated yesterday. No vomiting. He did have a liquidy stool this morning. Denies any abdominal pain. Abdominal x-ray large stool burden and rectum which correlates with prior CT and could represent stercoral colitis. Fecal disimpaction recommended. PHYSICAL EXAM: VITAL SIGNS: Reviewed. GENERAL: Well-developed in no acute distress. ABDOMEN: Soft. Distended Nontender. ASSESSMENT: 1. Fecal impaction status post flexible sigmoidoscopy with manual disimpaction 2. UTI PLAN: -Further recommendations forthcoming per surgeon -Keep patient nothing by mouth for now -Continue stool softeners -Increase activity as tolerated -Continue supportive care -Antibiotics per ID service for UTI Physician Rn Diabetes Educator note has been reviewed by physician. Signing provider agrees with the documented findings, assessment, and plan of care. I have personally seen and examined the patient, reviewed the CLOTH FOLDER HAND /PAs history, exam and MDM and agree with the assessment and plan as written. Based on total visit time, I have performed more than 50% of the visit. As above: Patient had some nausea today. X-rays noted. Digital rectal examina tion reveals soft stool within the rectal vault. Will begin GoLYTELY at this time. Keep nothing by mouth for now. Will follow closely. Objective - Vital Signs Vital signs: Vital Signs Temp 98.3 F 07/31/22 07:55 Pulse 89 07/31/22 07:55 Resp 17 07/31/22 07:55 BP 140/67 07/31/22 07:55 Pulse Ox 91 L 07/31/22 07:55 FiO2 Intake & Output 07/30/22 07/31/22 07/31/22 18:59 06:59 18:59 Intake Total 1080 Output Total 1250 1300 200 Balance -170 -1300 -200 Weight 63.503 kg Intake: Oral 1080 Output: Urine 1250 1300 200 Other: Voiding Method Diaper Diaper Diaper External Catheter External Catheter External Catheter # Bowel Movements 2 1 - Labs CBC & Chem 7: 07/31/22 07:08 07/31/22 17:14 Labs: Abnormal Lab Results - Last 24 Hours (Table) 07/30/22 07/30/22 07/31/22 Range/Units 16:50 21:26 01:34 RBC (4.40-5.60) X 10*6/uL Hgb (13.0-17.0) g/dL Hct (39.6-50.0) % Sodium (137-145) mmol/L Potassium (3.5-5.1) mmol/L BUN (9-20) mg/dL Creatinine (0.66-1.25) mg/dL Glucose (74-99) mg/dL POC Glucose (mg/dL) 143 H 203 H 237 H (70-110) mg/dL Calcium (8.4-10.2) mg/dL Alkaline Phosphatase (38-126) U/L Total Protein (6.3-8.2) g/dL Albumin (3.5-5.0) g/dL 07/31/22 07/31/22 07/31/22 Range/Units 05:56 07:08 07:08 RBC 3.41 L (4.40-5.60) X 10*6/uL Hgb 10.3 L (13.0-17.0) g/dL Hct 31.0 L (39.6-50.0) % Sodium 135 L (137-145) mmol/L Potassium 3.2 L (3.5-5.1) mmol/L BUN 6 L (9-20) mg/dL Creatinine 0.58 L (0.66-1.25) mg/dL Glucose 108 H (74-99) mg/dL POC Glucose (mg/dL) 133 H (70-110) mg/dL Calcium 7.6 L (8.4-10.2) mg/dL Alkaline Phosphatase 196 H (38-126) U/L Total Protein 5.1 L (6.3-8.2) g/dL Albumin 2.9 L (3.5-5.0) g/dL 07/31/22 Range/Units 11:39 RBC (4.40-5.60) X 10*6/uL Hgb (13.0-17.0) g/dL Hct (39.6-50.0) % Sodium (137-145) mmol/L Potassium (3.5-5.1) mmol/L BUN (9-20) mg/dL Creatinine (0.66-1.25) mg/dL Glucose (74-99) mg/dL POC Glucose (mg/dL) 112 H (70-110) mg/dL Calcium (8.4-10.2) mg/dL Alkaline Phosphatase (38-126) U/L Total Protein (6.3-8.2) g/dL Albumin (3.5-5.0) g/dL Microbiology - Last 24 Hours (Table) 07/30/22 02:20 Urine Culture - Final Urine,Voided 07/26/22 19:15 Blood Culture - Preliminary Blood No Growth after 96 hours 07/26/22 19:33 Blood Culture - Preliminary Blood No Growth after 96 hours
[2022-07-31 16:49] LABS: Glucose,Whole Blood 174 mg/dL (70-110)
[2022-07-31] MEDS ORDERED: VANCOMYCIN TROUGH DUE 1 EACH MISC MISCELLANE ONE (17:00)
--- NOTE | 2022-07-31 17:12 | P.PN ---
Subjective Progress Note Date: 07/31/22 This is 71-year-old male patient who presents to the ER with complaints of hematuria starting about 2 days ago. According to ER records patient had difficulty urinating with some right flank pain with a low-grade temperature. Patient has past medical history of diabetes mellitus, high disorder, hyperte nsion, seizure disorder, encephalopathy. CT of abdomen and pelvis completed without contrast showing rectal fecal impaction normal appendix. Chest x-ray completed showing no active cardiopulmonary disease. Inspiration decreased compared to old exam. COVID-19 negative. UA positive for urinary tract infection. White blood cell elevated at 14.2. Vital signs temp 99.8, pulse rate 99, respiratory rate 14, blood pressure 124/70 with a pulse ox 98% room air. Patient has been started on IV antibiotics. Urine blood and sputum cultures ordered. This time patient is resting comfortably in bed. Patient is alert and oriented 2. Patient denies chest pain or shortness breath. Patient denies nausea vomiting or diarrhea. Patient denies any urinary burning or frequency On 07/28/2022 patient was seen and examined on the medical floor he is alert, slightly confused in no apparent distress there is no fever or chills no headache or dizziness no chest pain no shortness of breath no cough no nausea or vomiting no abdominal pain no diarrhea no blood in the stools he has a Stanley catheter in, and urine in the catheter bag is bloody. Patient underwent flexible sigmoidoscopy with manual disimpaction yesterday, he feels significant relief after procedure. Today patient is sitting up in a chair he is alert and trying to answer questions but he seems to be confused, which is a change from his baseline prior to admission, a neurology consultation will be requested in that regard. On 07/29/2022 patient is alert and oriented sitting up in chair. Patient does seem to have some slight confusion. Patient was seen by neurology services awaiting further recommendations. Patient does report improvement since fecal disimpaction patient remains on Rocephin per infectious disease. At this time patient denies chest pain or shortness breath. Patient denies nausea vomiting or diarrhea. Patient denies any urinary burning or frequency. On 07/30/2022 patient was seen and examined on the medical floor he is alert and oriented in no distress, today his is at the bedside. Patient does seem to have some slight confusion, he is still having difficulty finding words. Patient was seen by neurology services, Dr. Yoon advised that patient has Parkinson disease he was started on Sinemet during this admission Patient does report improvement since fecal disimpaction patient remains on Rocephin per infectious disease. At this time patient denies chest pain or shortness breath. Patient denies nausea vomiting or diarrhea. He has Stanley catheter in and urine is less bloody today. On 07/31/2022 patient was seen and examined on the medical floor he is alert and oriented 3 in no apparent distress he is still having difficulty with his speech but is improving gradually he is denying any chest pain shortness of breath or cough he has not had a bowel movement in a couple of days per patient. Case was discussed was Dr. Rei Deluca on neurologist, all his symptoms be related to Parkinson disease, patient is improving gradually since he was started on Sinemet. Patient was started on physical therapy and occupational therapy consultation for Dr. Guzmán was initiated. Objective - Vital Signs Vital signs: Vital Signs Temp 98.3 F 07/31/22 07:55 Pulse 89 07/31/22 07:55 Resp 17 07/31/22 07:55 BP 140/67 07/31/22 07:55 Pulse Ox 91 L 07/31/22 07:55 FiO2 Intake & Output 07/30/22 07/31/22 07/31/22 18:59 06:59 18:59 Intake Total 1080 Output Total 1250 1300 200 Balance -170 -1300 -200 Weight 63.503 kg Intake: Oral 1080 Output: Urine 1250 1300 200 Other: Voiding Method Diaper Diaper Diaper External Catheter External Catheter External Catheter # Bowel Movements 2 1 - Exam Head normocephalic and atraumatic Neck supple no JVD Lungs clear to auscultation bilaterally no wheezing or crackles Heart regular rate and rhythm S1-S2, no rub or gallop Abdomen is soft nontender nondistended positive bowel sounds no hepatosplenomegaly Extremities no edema Neuro alert slightly confused in no apparent distress - Labs CBC & Chem 7: 07/31/22 07:08 07/31/22 07:08 Labs: Abnormal Lab Results - Last 24 Hours (Table) 07/30/22 07/30/22 07/31/22 Range/Units 16:50 21:26 01:34 RBC (4.40-5.60) X 10*6/uL Hgb (13.0-17.0) g/dL Hct (39.6-50.0) % Sodium (137-145) mmol/L Potassium (3.5-5.1) mmol/L BUN (9-20) mg/dL Creatinine (0.66-1.25) mg/dL Glucose (74-99) mg/dL POC Glucose (mg/dL) 143 H 203 H 237 H (70-110) mg/dL Calcium (8.4-10.2) mg/dL Alkaline Phosphatase (38-126) U/L Total Protein (6.3-8.2) g/dL Albumin (3.5-5.0) g/dL 07/31/22 07/31/22 07/31/22 Range/Units 05:56 07:08 07:08 RBC 3.41 L (4.40-5.60) X 10*6/uL Hgb 10.3 L (13.0-17.0) g/dL Hct 31.0 L (39.6-50.0) % Sodium 135 L (137-145) mmol/L Potassium 3.2 L (3.5-5.1) mmol/L BUN 6 L (9-20) mg/dL Creatinine 0.58 L (0.66-1.25) mg/dL Glucose 108 H (74-99) mg/dL POC Glucose (mg/dL) 133 H (70-110) mg/dL Calcium 7.6 L (8.4-10.2) mg/dL Alkaline Phosphatase 196 H (38-126) U/L Total Protein 5.1 L (6.3-8.2) g/dL Albumin 2.9 L (3.5-5.0) g/dL 07/31/22 Range/Units 11:39 RBC (4.40-5.60) X 10*6/uL Hgb (13.0-17.0) g/dL Hct (39.6-50.0) % Sodium (137-145) mmol/L Potassium (3.5-5.1) mmol/L BUN (9-20) mg/dL Creatinine (0.66-1.25) mg/dL Glucose (74-99) mg/dL POC Glucose (mg/dL) 112 H (70-110) mg/dL Calcium (8.4-10.2) mg/dL Alkaline Phosphatase (38-126) U/L Total Protein (6.3-8.2) g/dL Albumin (3.5-5.0) g/dL Microbiology - Last 24 Hours (Table) 07/30/22 02:20 Urine Culture - Final Urine,Voided 07/26/22 19:15 Blood Culture - Preliminary Blood No Growth after 96 hours 07/26/22 19:33 Blood Culture - Preliminary Blood No Growth after 96 hours Assessment and Plan Assessment: 1. Hematuria secondary to urinary tract infection 2. Dehydration. Continue IV fluid 3. Fecal impaction. Enema ordered surgical service is consulted 4. Altered mental status changes. Head CT completed 5. Hyperglycemia secondary diabetes mellitus type 2, insulin resumed + scale coverage 6. History of Essential hypertension 8. History of Hyperlipidemia 9. Diabetes mellitus type 2 10. Depression DVT prophylaxis Lovenox. GI prophylaxis Protonix Infectious disease, neurology surgical services following Repeat labs ordered in a.m.
[2022-07-31] MEDS ORDERED: NA PHOS,M-B/NA PHOS,DI-BA 133 ML ENEMA RECTAL ONE (21:10)
[2022-07-31] MEDS: INSULIN DETEMIR (LEVEMIR) 100 UNIT/ML SYR SQ SCH (21:54)
[2022-07-31] MEDS: AMITRIPTYLINE HCL 50 MG TAB PO SCH (21:57)
[2022-07-31] MEDS: PRAVASTATIN SODIUM 40 MG TAB PO SCH (21:57)
[2022-07-31] MEDS ORDERED: PEG 3350 (236 GM/BTL) + LYTES 4,000 ML BOTTLE PO ONE (22:00)
[2022-07-31] MEDS ORDERED: PEG 3350 (420 GM/BTL) + LYTES 4,000 ML BOTTLE PO ONE (22:30)
--- NOTE | 2022-07-31 23:24 | P.PN ---
Subjective Progress Note Date: 07/30/22 Principal diagnosis: UTI Patient is a 71-year male with a past medical history taken for diabetes mellitus hypertension seizure disorder presented to hospital with hematuria weakness patient has been diagnosed with a symptomatic urinary tract infection. On today's evaluation that is 07/30/2022 patient continues to be afebrile the patient is breathing comfortably on room air, the patient denies chest pain shortness with or cough no abdominal pain no diarrhea Objective - Vital Signs Vital signs: Vital Signs Temp 98.4 F 07/30/22 08:00 Pulse 91 07/30/22 08:00 Resp 18 07/30/22 08:00 BP 145/67 07/30/22 08:00 Pulse Ox 90 L 07/30/22 08:00 FiO2 Intake & Output 07/29/22 07/30/22 07/30/22 18:59 06:59 18:59 Intake Total 1610 Output Total 125 350 550 Balance 1485 -350 -550 Weight 63.503 kg Intake: Intake, IV Titration 1610 Amount Sodium Chloride 0.9% 1, 1560 000 ml @ 130 mls/hr IV . Q7H42M [facility] Rx#:[id number] cefTRIAXone 2 gm In 50 Sodium Chloride 0.9% 50 ml @ 100 mls/hr IVPB Q24HR [facility] Rx#:[id number] Output: Urine 125 350 550 Other: Voiding Method External Catheter Diaper Diaper External Catheter # Voids 2 # Bowel Movements 7 3 1 - Exam GENERAL DESCRIPTION: Elderly male up in the chair, no distress. No tachypnea or accessory muscle of respiration use. LUNGS: Unlabored breathing. Clear to auscultation anteriorly. No wheeze or crackle. HEART: S1, S2, regular rate and rhythm. No loud murmur ABDOMEN: Soft, no tenderness , guarding or rigidity, no organomegaly EXTREMITIES: No edema of feet. - Labs CBC & Chem 7: 07/31/22 07:08 07/31/22 17:14 Labs: Abnormal Lab Results - Last 24 Hours (Table) 07/29/22 07/29/22 07/29/22 Range/Units 06:13 16:33 19:57 Sodium (137-145) mmol/L Creatinine (0.66-1.25) mg/dL Glucose (74-99) mg/dL POC Glucose (mg/dL) 161 H >600 H (70-110) mg/dL Calcium (8.4-10.2) mg/dL Vitamin B12 187.0 L (200.0-944.0) pg/mL Urine Protein (Negative) Urine Glucose (UA) (Negative) Urine Ketones (Negative) Urine Blood (Negative) Ur Leukocyte Esterase (Negative) Urine RBC (0-5) /hpf Urine WBC (0-5) /hpf Urine Bacteria (None) /hpf 07/29/22 07/30/22 07/30/22 Range/Units 19:58 01:31 02:20 Sodium (137-145) mmol/L Creatinine (0.66-1.25) mg/dL Glucose (74-99) mg/dL POC Glucose (mg/dL) 245 H 319 H (70-110) mg/dL Calcium (8.4-10.2) mg/dL Vitamin B12 (200.0-944.0) pg/mL Urine Protein 2+ H (Negative) Urine Glucose (UA) 3+ H (Negative) Urine Ketones 2+ H (Negative) Urine Blood Trace H (Negative) Ur Leukocyte Esterase Moderate H (Negative) Urine RBC 7 H (0-5) /hpf Urine WBC 23 H (0-5) /hpf Urine Bacteria Rare H (None) /hpf 07/30/22 07/30/22 Range/Units 04:16 06:05 Sodium 134 L (137-145) mmol/L Creatinine 0.59 L (0.66-1.25) mg/dL Glucose 168 H (74-99) mg/dL POC Glucose (mg/dL) 191 H (70-110) mg/dL Calcium 7.5 L (8.4-10.2) mg/dL Vitamin B12 (200.0-944.0) pg/mL Urine Protein (Negative) Urine Glucose (UA) (Negative) Urine Ketones (Negative) Urine Blood (Negative) Ur Leukocyte Esterase (Negative) Urine RBC (0-5) /hpf Urine WBC (0-5) /hpf Urine Bacteria (None) /hpf Microbiology - Last 24 Hours (Table) 07/30/22 02:20 Urine Culture - Preliminary Urine,Voided 07/26/22 19:15 Blood Culture - Preliminary Blood No Growth after 72 hours 07/26/22 18:56 Urine Culture - Final Urine,Voided Enterococcus faecalis 07/26/22 19:33 Blood Culture - Preliminary Blood No Growth after 72 hours Assessment and Plan (1) UTI (urinary tract infection) Current Visit: No Status: Acute Code(s): N39.0 - URINARY TRACT INFECTION, SITE NOT SPECIFIED SNOMED Code(s): 78718456 Plan: 1patient presented to hospital with generalized weakness did have some difficulty urination apparently some hematuria and flank pain concerning for possible pyelonephritis in this patient who did have elevated white count and a low-grade fever on presentation the hospital ultrasound did not show any evidence of hydronephrosis or renal stone. 2penicillin allergy that would limit the number of antibiotics safe to use. 3the patient urine has been finalized with Enterococcus that is penicillin sensitive unfortunately patient is allergic, we will continue vancomycin and monitor clinical course closely Time with Patient: Less than 30
--- NOTE | 2022-07-31 23:25 | P.PN ---
Subjective Progress Note Date: 07/31/22 Principal diagnosis: UTI Patient is a 71-year old male with a past medical history taken for diabetes mellitus hypertension seizure disorder presented to hospital with he maturia weakness patient has been diagnosed with a symptomatic urinary tract infection. On today's evaluation that is 07/31/2022 patient remains to be afebrile the patient is breathing comfortably on room air, the patient denies chest pain shortness with or cough no abdominal pain no diarrhea, overall feeling better Objective - Vital Signs Vital signs: Vital Signs Temp 98.3 F 07/31/22 07:55 Pulse 89 07/31/22 07:55 Resp 17 07/31/22 07:55 BP 140/67 07/31/22 07:55 Pulse Ox 91 L 07/31/22 07:55 FiO2 Intake & Output 07/30/22 07/31/22 07/31/22 18:59 06:59 18:59 Intake Total 1080 Output Total 1250 1300 200 Balance -170 -1300 -200 Weight 63.503 kg Intake: Oral 1080 Output: Urine 1250 1300 200 Other: Voiding Method Diaper Diaper Diaper External Catheter External Catheter External Catheter # Bowel Movements 2 1 - Exam GENERAL DESCRIPTION: Elderly male up in the chair, no distress. No tachypnea or accessory muscle of respiration use. LUNGS: Unlabored breathing. Clear to auscultation anteriorly. No wheeze or crackle. HEART: S1, S2, regular rate and rhythm. No loud murmur ABDOMEN: Soft, no tenderness , guarding or rigidity, no organomegaly EXTREMITIES: No edema of feet. - Labs CBC & Chem 7: 07/31/22 07:08 07/31/22 17:14 Labs: Abnormal Lab Results - Last 24 Hours (Table) 07/30/22 07/30/22 07/31/22 Range/Units 16:50 21:26 01:34 RBC (4.40-5.60) X 10*6/uL Hgb (13.0-17.0) g/dL Hct (39.6-50.0) % Sodium (137-145) mmol/L Potassium (3.5-5.1) mmol/L BUN (9-20) mg/dL Creatinine (0.66-1.25) mg/dL Glucose (74-99) mg/dL POC Glucose (mg/dL) 143 H 203 H 237 H (70-110) mg/dL Calcium (8.4-10.2) mg/dL Alkaline Phosphatase (38-126) U/L Total Protein (6.3-8.2) g/dL Albumin (3.5-5.0) g/dL 07/31/22 07/31/22 07/31/22 Range/Units 05:56 07:08 07:08 RBC 3.41 L (4.40-5.60) X 10*6/uL Hgb 10.3 L (13.0-17.0) g/dL Hct 31.0 L (39.6-50.0) % Sodium 135 L (137-145) mmol/L Potassium 3.2 L (3.5-5.1) mmol/L BUN 6 L (9-20) mg/dL Creatinine 0.58 L (0.66-1.25) mg/dL Glucose 108 H (74-99) mg/dL POC Glucose (mg/dL) 133 H (70-110) mg/dL Calcium 7.6 L (8.4-10.2) mg/dL Alkaline Phosphatase 196 H (38-126) U/L Total Protein 5.1 L (6.3-8.2) g/dL Albumin 2.9 L (3.5-5.0) g/dL 07/31/22 Range/Units 11:39 RBC (4.40-5.60) X 10*6/uL Hgb (13.0-17.0) g/dL Hct (39.6-50.0) % Sodium (137-145) mmol/L Potassium (3.5-5.1) mmol/L BUN (9-20) mg/dL Creatinine (0.66-1.25) mg/dL Glucose (74-99) mg/dL POC Glucose (mg/dL) 112 H (70-110) mg/dL Calcium (8.4-10.2) mg/dL Alkaline Phosphatase (38-126) U/L Total Protein (6.3-8.2) g/dL Albumin (3.5-5.0) g/dL Microbiology - Last 24 Hours (Table) 07/30/22 02:20 Urine Culture - Final Urine,Voided 07/26/22 19:15 Blood Culture - Preliminary Blood No Growth after 96 hours 07/26/22 19:33 Blood Culture - Preliminary Blood No Growth after 96 hours Assessment and Plan (1) UTI (urinary tract infection) Current Visit: No Status: Acute Code(s): N39.0 - URINARY TRACT INFECTION, SITE NOT SPECIFIED SNOMED Code(s): 27442203 Plan: 1patient presented to hospital with generalized weakness did have some difficulty urination apparently some hematuria and flank pain concerning for possible pyelonephritis in this patient who did have elevated white count and a low-grade fever on presentation the hospital ultrasound did not show any evidence of hydronephrosis or renal stone. 2penicillin allergy that would limit the number of antibiotics safe to use. 3the patient urine has been finalized with Enterococcus that is penicillin sensitive unfortunately patient is allergic, patient to continue vancomycin however repeat urine has been negative so for May consider short course of oral Macrobid on discharge Time with Patient: Less than 30
[2022-08-01 00:11] LABS: Glucose,Whole Blood 299 mg/dL (70-110)
[2022-08-01] MEDS: LACTULOSE 20 GM/30 ML CUP PO SCH ×2 (06:04→22:38)
[2022-08-01 06:06] LABS: Glucose,Whole Blood 287 mg/dL (70-110)
[2022-08-01] MEDS: SODIUM CHLORIDE 0.9% 1,000 ML IV SCH (06:06)
[2022-08-01] MEDS: VANCOMYCIN 1,500 MG in SODIUM CHLORIDE 0.9% 500 ML 500 ML IVPB SCH ×2 (06:06→17:12)
[2022-08-01] MEDS: INSULIN ASPART (NovoLOG) 100 UNIT/ML VIAL SQ SCH ×3 (06:12→17:10)
[2022-08-01] MEDS ORDERED: NA PHOS,M-B/NA PHOS,DI-BA 133 ML ENEMA RECTAL ONE (08:00)
--- NOTE | 2022-08-01 09:28 | P.PN ---
Subjective Progress Note Date: 08/01/22 This is 71-year-old male patient who presents to the ER with complaints of hematuria starting about 2 days ago. According to ER records patient had difficulty urinating with some right flank pain with a low-grade temperature. Patient has past medical history of diabetes mellitus, high disorder, hyperte nsion, seizure disorder, encephalopathy. CT of abdomen and pelvis completed without contrast showing rectal fecal impaction normal appendix. Chest x-ray completed showing no active cardiopulmonary disease. Inspiration decreased compared to old exam. COVID-19 negative. UA positive for urinary tract infection. White blood cell elevated at 14.2. Vital signs temp 99.8, pulse rate 99, respiratory rate 14, blood pressure 124/70 with a pulse ox 98% room air. Patient has been started on IV antibiotics. Urine blood and sputum cultures ordered. This time patient is resting comfortably in bed. Patient is alert and oriented 2. Patient denies chest pain or shortness breath. Patient denies nausea vomiting or diarrhea. Patient denies any urinary burning or frequency On 07/28/2022 patient was seen and examined on the medical floor he is alert, slightly confused in no apparent distress there is no fever or chills no headache or dizziness no chest pain no shortness of breath no cough no nausea or vomiting no abdominal pain no diarrhea no blood in the stools he has a Stanley catheter in, and urine in the catheter bag is bloody. Patient underwent flexible sigmoidoscopy with manual disimpaction yesterday, he feels significant relief after procedure. Today patient is sitting up in a chair he is alert and trying to answer questions but he seems to be confused, which is a change from his baseline prior to admission, a neurology consultation will be requested in that regard. On 07/29/2022 patient is alert and oriented sitting up in chair. Patient does seem to have some slight confusion. Patient was seen by neurology services awaiting further recommendations. Patient does report improvement since fecal disimpaction patient remains on Rocephin per infectious disease. At this time patient denies chest pain or shortness breath. Patient denies nausea vomiting or diarrhea. Patient denies any urinary burning or frequency. On 07/30/2022 patient was seen and examined on the medical floor he is alert and oriented in no distress, today his is at the bedside. Patient does seem to have some slight confusion, he is still having difficulty finding words. Patient was seen by neurology services, Dr. Yoon advised that patient has Parkinson disease he was started on Sinemet during this admission Patient does report improvement since fecal disimpaction patient remains on Rocephin per infectious disease. At this time patient denies chest pain or shortness breath. Patient denies nausea vomiting or diarrhea. He has Stanley catheter in and urine is less bloody today. On 07/31/2022 patient was seen and examined on the medical floor he is alert and oriented 3 in no apparent distress he is still having difficulty with his speech but is improving gradually he is denying any chest pain shortness of breath or cough he has not had a bowel movement in a couple of days per patient. Case was discussed was Dr. Rei Deluca on neurologist, all his symptoms be related to Parkinson disease, patient is improving gradually since he was started on Sinemet. Patient was started on physical therapy and occupational therapy consultation for Dr. Guzmán was initiated. On 08/01/2022 patient is alert and oriented 3. patient is resting comfortably in bed. Discharge planning to inpatient rehab versus [facility]. Surgical services following for fecal impaction. Neurology services following for new diagnosis of Parkinson's disease patient was started on Sinemet. Infectious d isease following for urinary tract infection and plans to DC the patient on Macrobid. This time patient denies chest pain or shortness breath. Patient denies nausea vomiting or diarrhea. Patient denies any urinary burning or frequency Objective - Vital Signs Vital signs: Vital Signs Temp 97.8 F 08/01/22 07:19 Pulse 108 H 08/01/22 07:19 Resp 16 08/01/22 07:19 BP 152/70 08/01/22 07:19 Pulse Ox 94 L 08/01/22 07:19 FiO2 Intake & Output 07/31/22 08/01/22 08/01/22 18:59 06:59 18:59 Output Total 200 Balance -200 Output: Urine 200 Other: Voiding Method Diaper Diaper Indwelling Catheter # Voids 5 # Bowel Movements 3 - Exam Head normocephalic and atraumatic Neck supple no JVD Lungs clear to auscultation bilaterally no wheezing or crackles Heart regular rate and rhythm S1-S2, no rub or gallop Abdomen is soft nontender nondistended positive bowel sounds no hepatosplenomegaly Extremities no edema Neuro alert slightly confused in no apparent distress - Labs CBC & Chem 7: 07/31/22 07:08 07/31/22 17:14 Labs: Abnormal Lab Results - Last 24 Hours (Table) 07/31/22 07/31/22 07/31/22 Range/Units 07:08 11:39 16:48 RBC 3.41 L (4.40-5.60) X 10*6/uL Hgb 10.3 L (13.0-17.0) g/dL Hct 31.0 L (39.6-50.0) % POC Glucose (mg/dL) 112 H 174 H (70-110) mg/dL 08/01/22 08/01/22 Range/Units 00:08 06:04 RBC (4.40-5.60) X 10*6/uL Hgb (13.0-17.0) g/dL Hct (39.6-50.0) % POC Glucose (mg/dL) 299 H 287 H (70-110) mg/dL Microbiology - Last 24 Hours (Table) 07/26/22 19:15 Blood Culture - Preliminary Blood No Growth after 120 hours 07/26/22 19:33 Blood Culture - Preliminary Blood No Growth after 120 hours 07/30/22 02:20 Urine Culture - Final Urine,Voided Assessment and Plan Assessment: 1. Hematuria secondary to urinary tract infection 2. Dehydration. Continue IV fluid 3. Fecal impaction. Enema ordered surgical service is consulted 4. Altered mental status changes. Head CT completed 5. Hyperglycemia secondary diabetes mellitus type 2, insulin resumed + scale coverage 6. History of Essential hypertension 8. History of Hyperlipidemia 9. Diabetes mellitus type 2 10. Depression 11. Recurrent falls with tremors probable Parkinson's disease per neurology services patient has been started on Sinemet. Some improvement noted DVT prophylaxis Lovenox. GI prophylaxis Protonix Infectious disease, neurology surgical services following Surgical service is following for fecal impaction Repeat labs ordered in a.m. DC planning inpatient rehab versus [facility] Plan: 1. Hematuria secondary to urinary tract infection 2. Dehydration. Continue IV fluid 3. Fecal impaction. Enema ordered surgical service is consulted 4. Altered mental status changes. Head CT ordered 5. Hyperglycemia secondary diabetes mellitus type 2, insulin resumed + scale coverage 6. History of Essential hypertension 8. History of Hyperlipidemia 9. Diabetes mellitus type 2 10. Depression Ultrasound of kidneys and bladder ordered Head CT ordered Infectious disease and surgical services ordered Fleet enemas ordered Ammonia level repeat labs ordered
[2022-08-01] MEDS: CALCIUM CARBONATE 500 MG CHEWABLE PO SCH (09:41)
[2022-08-01] MEDS: lamoTRIgine 100 MG TAB PO SCH ×2 (09:41→21:24)
[2022-08-01] MEDS: PANTOPRAZOLE 40 MG TABLET PO SCH (09:41)
[2022-08-01] MEDS: PARoxetine 20 MG TAB PO SCH (09:42)
[2022-08-01] MEDS: CYANOCOBALAMIN 1,000 MCG/ML 1 ML VIAL IM SCH (09:42)
[2022-08-01] MEDS: FAMOTIDINE 20 MG TAB PO SCH (09:42)
[2022-08-01] MEDS: CARBIDOPA-LEVODOPA 25-100 MG 1 EACH TAB PO SCH ×3 (09:42→21:24)
[2022-08-01] MEDS: lisinopriL 5 MG TAB PO SCH (09:42)
[2022-08-01] MEDS: MULTIVITAMINS, THERA 1 EACH TAB PO SCH (09:42)
[2022-08-01] MEDS: ENOXAPARIN 40 MG/0.4 ML SYRINGE SQ SCH (09:43)
[2022-08-01 11:30] LABS: Basophils # (A) 0.05 X 10*3/uL (0.00-0.10); Basophils % (A) 0.7 %; Eosinophils # (A) 0.25 X 10*3/uL (0.04-0.35); Eosinophils % (A) 3.4 %; HCT 33.9 % (39.6-50.0); HGB 10.9 g/dL (13.0-17.0); Immature Grans, Automated 0.5 %; Lymphocytes # (A) 1.06 X 10*3/uL (0.90-5.00); Lymphocytes % (A) 14.3 %; MCH 29.2 pg (27.0-32.0); MCHC 32.2 g/dL (32.0-37.0); MCV 90.9 fL (80.0-97.0); Mean Platelet Volume 9.9 fL (9.5-12.2); Monocytes # (A) 0.47 X 10*3/uL (0.20-1.00); Monocytes % (A) 6.4 %; NRBC Per 100 WBC 0 /100 WBCS (0.0-0.0); Neutrophils # (A) 5.52 X 10*3/uL (1.80-7.70); Neutrophils % (A) 74.7 %; Platelet Count 326 X 10*3/uL (140-440); RBC 3.73 X 10*6/uL (4.40-5.60); RDW 12.6 % (11.5-14.5); WBC 7.39 X 10*3/uL (4.50-10.00)
[2022-08-01 11:31] LABS: African American GFR (CKD) 105.6 (60.0-200.0); Albumin 3.2 g/dL (3.8-4.9); Albumin/Globulin Ratio 1.39 (1.60-3.17); Anion Gap 18.9 mmol/L (10.00-18.00); BUN/Creat Ratio 14.13 Ratio (12.00-20.00); Blood Urea Nitrogen 11.3 mg/dL (9.0-27.0); Carbon Dioxide 17.1 mmol/L (20.0-27.5); Globulin 2.3 g/dL (1.6-3.3); Non-African American GFR(CKD) 91.1 (60.0-200.0); Potassium 4.5 mmol/L (3.5-5.5); Total Bilirubin 0.4 mg/dL (0.30-1.20); Total Protein 5.5 g/dL (6.2-8.2)
[2022-08-01 11:48] LABS: Glucose,Whole Blood 338 mg/dL (70-110)
--- NOTE | 2022-08-01 14:02 | P.PN ---
Subjective Progress Note Date: 08/01/22 CHIEF COMPLAINT: Fecal impaction HISTORY OF PRESENT ILLNESS: Patient is lying in bed. He denies any abdominal pain. His nausea has improved. He did have 3 bowel movements last night and one bowel movement this morning. He received Fleet enemas yesterday. Patient's abdomen remains distended. Afebrile. Heart rate 116. WBC 7.39 PHYSICAL EXAM: VITAL SIGNS: Reviewed. GENERAL: Well-developed in no acute distress. ABDOMEN: Soft. Distended Nontender. ASSESSMENT: 1. Fecal impaction status post flexible sigmoidoscopy with manual disimpaction 2. UTI PLAN: -Soapsud enemas have been ordered -Continue the GoLYTELY bowel prep -Keep patient nothing by mouth. Okay to drink water with the bowel prep -Continue stool softeners -Increase activity as tolerated -Continue supportive care -Antibiotics per ID service for UTI Physician Auto Mechanic Apprentice note has been reviewed by physician. Signing provider agrees with the documented findings, assessment, and plan of care. I have personally seen and examined the patient, reviewed the FLIGHT COMMUNICATIONS SPECIALIST /PAs history, exam and MDM and agree with the assessment and plan as written. Based on total visit time, I have performed more than 50% of the visit. As above: Patient less distended today. He did receive enemas today with some loose stools. No fecal impaction palpable and yesterday's rectal examination. Continue GoLYTELY. Objective - Vital Signs Vital signs: Vital Signs Temp 97.4 F L 08/01/22 08:30 Pulse 116 H 08/01/22 08:30 Resp 18 08/01/22 08:30 BP 139/62 08/01/22 08:30 Pulse Ox 94 L 08/01/22 07:19 FiO2 Intake & Output 07/31/22 08/01/22 08/01/22 18:59 06:59 18:59 Output Total 200 Balance -200 Output: Urine 200 Other: Voiding Method Diaper Diaper Diaper Indwelling Catheter # Voids 5 0 # Bowel Movements 3 1 - Labs CBC & Chem 7: 08/01/22 05:31 08/01/22 05:31 Labs: Abnormal Lab Results - Last 24 Hours (Table) 07/31/22 08/01/22 08/01/22 Range/Units 16:48 00:08 05:31 RBC 3.73 L (4.40-5.60) X 10*6/uL Hgb 10.9 L (13.0-17.0) g/dL Hct 33.9 L (39.6-50.0) % Carbon Dioxide (20.0-27.5) mmol/L Anion Gap (10.00-18.00) mmol/L Glucose (70-110) mg/dL POC Glucose (mg/dL) 174 H 299 H (70-110) mg/dL Calcium (8.7-10.3) mg/dL AST (14-35) U/L Alkaline Phosphatase (41-126) U/L Total Protein (6.2-8.2) g/dL Albumin (3.8-4.9) g/dL Albumin/Globulin Ratio (1.60-3.17) g/dL 08/01/22 08/01/22 08/01/22 Range/Units 05:31 06:04 11:47 RBC (4.40-5.60) X 10*6/uL Hgb (13.0-17.0) g/dL Hct (39.6-50.0) % Carbon Dioxide 17.1 L (20.0-27.5) mmol/L Anion Gap 18.90 H (10.00-18.00) mmol/L Glucose 304 H (70-110) mg/dL POC Glucose (mg/dL) 287 H 338 H (70-110) mg/dL Calcium 8.0 L (8.7-10.3) mg/dL AST 37 H (14-35) U/L Alkaline Phosphatase 208 H (41-126) U/L Total Protein 5.5 L (6.2-8.2) g/dL Albumin 3.2 L (3.8-4.9) g/dL Albumin/Globulin Ratio 1.39 L (1.60-3.17) g/dL Microbiology - Last 24 Hours (Table) 07/26/22 19:15 Blood Culture - Preliminary Blood No Growth after 120 hours 07/26/22 19:33 Blood Culture - Preliminary Blood No Growth after 120 hours 07/30/22 02:20 Urine Culture - Final Urine,Voided
[2022-08-01] MEDS ORDERED: INSULIN ASPART (NovoLOG) 100 UNIT/ML VIAL SQ ONE ×3 (14:04→20:45)
[2022-08-01 16:40] LABS: Glucose,Whole Blood 372 mg/dL (70-110)
[2022-08-01 19:45] LABS: Glucose,Whole Blood 332 mg/dL (70-110)
[2022-08-01] MEDS ORDERED: HALOPERIDOL LACTATE 5 MG/ML 1 ML VIAL IM PRN (20:03)
[2022-08-01] MEDS: AMITRIPTYLINE HCL 50 MG TAB PO SCH (21:24)
[2022-08-01] MEDS: INSULIN DETEMIR (LEVEMIR) 100 UNIT/ML SYR SQ SCH (21:25)
[2022-08-01] MEDS: PRAVASTATIN SODIUM 40 MG TAB PO SCH (22:38)
[2022-08-02 01:54] LABS: Glucose,Whole Blood 282 mg/dL (70-110)
[2022-08-02 06:12] LABS: Glucose,Whole Blood 146 mg/dL (70-110)
[2022-08-02] MEDS: INSULIN ASPART (NovoLOG) 100 UNIT/ML VIAL SQ SCH ×3 (06:36→18:27)
[2022-08-02] MEDS: VANCOMYCIN 1,500 MG in SODIUM CHLORIDE 0.9% 500 ML 500 ML IVPB SCH ×2 (06:51→18:27)
[2022-08-02 08:57] LABS: Basophils # (A) 0.05 X 10*3/uL (0.00-0.10); Basophils % (A) 0.5 %; Eosinophils # (A) 0.28 X 10*3/uL (0.04-0.35); HCT 30.9 % (39.6-50.0); HGB 10.1 g/dL (13.0-17.0); Immature Grans, Automated 0.5 %; Lymphocytes # (A) 1.34 X 10*3/uL (0.90-5.00); Lymphocytes % (A) 14.4 %; MCH 29.2 pg (27.0-32.0); MCHC 32.7 g/dL (32.0-37.0); MCV 89.3 fL (80.0-97.0); Mean Platelet Volume 9.2 fL (9.5-12.2); Monocytes % (A) 8.6 %; NRBC Per 100 WBC 0 /100 WBCS (0.0-0.0); Neutrophils # (A) 6.78 X 10*3/uL (1.80-7.70); Platelet Count 406 X 10*3/uL (140-440); RBC 3.46 X 10*6/uL (4.40-5.60); RDW 12.6 % (11.5-14.5)
[2022-08-02] MEDS: CALCIUM CARBONATE 500 MG CHEWABLE PO SCH (09:19)
[2022-08-02] MEDS: MULTIVITAMINS, THERA 1 EACH TAB PO SCH (09:19)
[2022-08-02] MEDS: PANTOPRAZOLE 40 MG TABLET PO SCH (09:21)
[2022-08-02] MEDS: CARBIDOPA-LEVODOPA 25-100 MG 1 EACH TAB PO SCH ×3 (09:21→20:24)
[2022-08-02] MEDS: CYANOCOBALAMIN 500 MCG TAB PO SCH (09:21)
[2022-08-02] MEDS: FAMOTIDINE 20 MG TAB PO SCH (09:21)
[2022-08-02] MEDS: PARoxetine 20 MG TAB PO SCH (09:21)
[2022-08-02] MEDS: ENOXAPARIN 40 MG/0.4 ML SYRINGE SQ SCH (09:21)
[2022-08-02] MEDS: lamoTRIgine 100 MG TAB PO SCH ×2 (09:22→20:24)
[2022-08-02] MEDS: LACTULOSE 20 GM/30 ML CUP PO SCH ×2 (09:25→20:25)
[2022-08-02 09:31] LABS: African American GFR (CKD) 100.6 (60.0-200.0); Albumin 3.2 g/dL (3.8-4.9); Albumin/Globulin Ratio 1.52 (1.60-3.17); Anion Gap 11.6 mmol/L (10.00-18.00); BUN/Creat Ratio 21.33 Ratio (12.00-20.00); Blood Urea Nitrogen 19.2 mg/dL (9.0-27.0); Calcium 8.6 mg/dL (8.7-10.3); Carbon Dioxide 20.4 mmol/L (20.0-27.5); Globulin 2.1 g/dL (1.6-3.3); Non-African American GFR(CKD) 86.8 (60.0-200.0); Potassium 3.9 mmol/L (3.5-5.5); Total Bilirubin 0.3 mg/dL (0.30-1.20); Total Protein 5.3 g/dL (6.2-8.2)
[2022-08-02] MEDS: lisinopriL 5 MG TAB PO SCH (09:32)
[2022-08-02 11:35] LABS: Glucose,Whole Blood 102 mg/dL (70-110)
--- NOTE | 2022-08-02 12:22 | P.PN ---
Subjective Progress Note Date: 08/02/22 CHIEF COMPLAINT: Fecal impaction HISTORY OF PRESENT ILLNESS: Patient is lying in bed. He denies any abdominal pain. He denies any nausea or vomiting. He had 3 bowel movements yesterday. The soapsuds enemas were not given yesterday. Nursing staff will give them this morning. Patient is hungry. Afebrile. WBC is 9.3 hemoglobin 10.1 platelets 406 sodium is 13 potassium 3.9 and creatinine 0.9 PHYSICAL EXAM: VITAL SIGNS: Reviewed. GENERAL: Well-developed in no acute distress. ABDOMEN: Distended but softer than yesterday Nontender. ASSESSMENT: 1. Fecal impaction status post flexible sigmoidoscopy with manual disimpaction 2. UTI PLAN: -Soapsud enemas will be given today discussed with nursing staff -Start clear liquid diet -Continue the GoLYTELY bowel prep -Continue stool softeners -Increase activity as tolerated -Continue supportive care -Antibiotics per ID service for UTI Physician Heading And Priming Tool Setter note has been reviewed by physician. Signing provider agrees with the documented findings, assessment, and plan of care. I have personally seen and examined the patient, reviewed the HARVEST MANAGER /PAs history, exam and MDM and agree with the assessment and plan as written. Based on total visit time, I have performed more than 50% of the visit. As above: Patient doing better today. Denies abdominal pain. No bloating. He is getting another soapsuds enema is today. Objective - Vital Signs Vital signs: Vital Signs Temp 98.0 F 08/02/22 07:35 Pulse 86 08/02/22 10:34 Resp 16 08/02/22 10:34 BP 149/69 08/02/22 07:35 Pulse Ox 92 L 08/02/22 07:35 FiO2 Intake & Output 08/01/22 08/02/22 08/02/22 18:59 06:59 18:59 Intake Total 500 Output Total 1 Balance 499 Intake: Intake, IV Titration 500 Amount Vancomycin 1,500 mg In 500 Sodium Chloride 0.9% 500 ml 500 ml @ 167 mls/hr IVPB Q12H [facility] Rx#: [id number] Output: Urine/Stool Mix 1 Other: Voiding Method Diaper Diaper Diaper # Voids 1 1 # Bowel Movements 2 2 - Labs CBC & Chem 7: 08/02/22 05:53 08/02/22 05:53 Labs: Abnormal Lab Results - Last 24 Hours (Table) 08/01/22 08/01/22 08/02/22 Range/Units 16:39 19:39 01:51 RBC (4.40-5.60) X 10*6/uL Hgb (13.0-17.0) g/dL Hct (39.6-50.0) % MPV (9.5-12.2) fL Immature Gran # (0.00-0.04) X 10*3/uL BUN/Creatinine Ratio (12.00-20.00) Ratio Glucose (70-110) mg/dL POC Glucose (mg/dL) 372 H 332 H 282 H (70-110) mg/dL Calcium (8.7-10.3) mg/dL Alkaline Phosphatase (41-126) U/L Total Protein (6.2-8.2) g/dL Albumin (3.8-4.9) g/dL Albumin/Globulin Ratio (1.60-3.17) g/dL 08/02/22 08/02/22 08/02/22 Range/Units 05:53 05:53 06:08 RBC 3.46 L (4.40-5.60) X 10*6/uL Hgb 10.1 L (13.0-17.0) g/dL Hct 30.9 L (39.6-50.0) % MPV 9.2 L (9.5-12.2) fL Immature Gran # 0.05 H (0.00-0.04) X 10*3/uL BUN/Creatinine Ratio 21.33 H (12.00-20.00) Ratio Glucose 147 H (70-110) mg/dL POC Glucose (mg/dL) 146 H (70-110) mg/dL Calcium 8.6 L (8.7-10.3) mg/dL Alkaline Phosphatase 173 H (41-126) U/L Total Protein 5.3 L (6.2-8.2) g/dL Albumin 3.2 L (3.8-4.9) g/dL Albumin/Globulin Ratio 1.52 L (1.60-3.17) g/dL Microbiology - Last 24 Hours (Table) 07/26/22 19:15 Blood Culture - Final Blood No Growth after 144 hours 07/26/22 19:33 Blood Culture - Final Blood No Growth after 144 hours
--- NOTE | 2022-08-02 13:57 | P.CN ---
Psychiatric Consult - . Consult date: 08/02/22 Consult:: 08/02/22 13:51 Patient was seen for a psychiatric consultation regarding delirium. When I tried to see him he was getting an enema and after that he was sitting on the bed newman. Apparently when he came to the hospital he had abdominal pain and urinary problem. Workup included impacted stools and it was removed. He still gets constipated and gets enema. Patient was still in bed and had no difficulty in talking with me. However he was not able to focus and was over inclusive and often tangential. He also had mild dysarthria. His MRI of the brain showed bilateral cerebral atrophy with ventricular enlargement and chronic small vessel ischemia. Patient is on Elavil 50 mg at bedtime besides other medications. Elavil is highly anticholinergic, can cause constipation and dry mouth confusion and agitation. Patient does have dry mouth which may be decreased in for some dysarthria. Assessment: His delirium appears to be secondary to multiple physical problems in the person who is 71 years old with cerebral atrophy and small vessel ischemia who takes anticholinergic medication. Recommendation: Since Elavil is known to cause anticholinergic side effects including psychosis constipation including impaction, dry mouth I would suggest that Elavil be discontinued. Other medical conditions would need to be stabilized and his delirium should resolve once all these things are done.
--- NOTE | 2022-08-02 15:01 | P.PN ---
Subjective Progress Note Date: 08/02/22 According to patient's nurse, no further tremors. He feels he is doing better. Objective - Vital Signs Vital signs: Vital Signs Temp 98.0 F 08/02/22 07:35 Pulse 86 08/02/22 10:34 Resp 16 08/02/22 10:34 BP 149/69 08/02/22 07:35 Pulse Ox 92 L 08/02/22 07:35 FiO2 Intake & Output 08/01/22 08/02/22 08/02/22 18:59 06:59 18:59 Intake Total 500 Output Total 1 Balance 499 Weight 63.503 kg Intake: Intake, IV Titration 500 Amount Vancomycin 1,500 mg In 500 Sodium Chloride 0.9% 500 ml 500 ml @ 167 mls/hr IVPB Q12H [facility] Rx#: [id number] Output: Urine/Stool Mix 1 Other: Voiding Method Diaper Diaper Diaper # Voids 1 1 # Bowel Movements 2 2 - Exam GENERAL: The patient is lying in bed and is not in acute distress. NEUROLOGICAL: Higher mental function: The patient is awake, alert, oriented to self, stated he was in hospital and oriented to time. He seems more responsive today. He is following simple commands. Has some word finding difficulty. No aphasia or neglect. Cranial nerves: The pupils are round, equal and reactive to light. Visual fiel ds are full to confrontation throughout. Extraocular movement is tracking through out the room and no appreciateable nystagmus. No facial weakness. i Hearing is severely decreased bilaterally to hand rub. Tongue is midline and moved [id number] without any difficulty. No dysarthria is noted. Patient appears somewhat mask-like facies. Shoulder shrug is normal bilaterally. Motor: The strength is 5 over 5 throughout. Some increase tone at wrists and elbows at time. Has mild tremors and seems more with action but seems somewhat improved for the past two days. Normal bulk. Cerebellum: Normal finger to nose bilaterally. Sensation: Sensation is normal to touch throughout. Reflexes (right/left):1 + Plantars is mute over the left at baseline. Mute over the right. Some of the workup during his hospital visit consisted of: Vitamin B12: 187 (deficient and normal is 200-944). Folate is 12.8 TSH: 2.65 CK is 101 HbA1c: 8.0 CT of the head is reported as age-related atrophic and chronic small vessel ischemic change without acute intracranial process seen at this time. I personally could not review the CT of the head because of issues with the system. Ammonia level is less than 9 Coronavirus is undetected Urine culture is E. Faecalis. - Labs CBC & Chem 7: 08/02/22 05:53 08/02/22 05:53 Labs: Abnormal Lab Results - Last 24 Hours (Table) 08/01/22 08/01/22 08/02/22 Range/Units 16:39 19:39 01:51 RBC (4.40-5.60) X 10*6/uL Hgb (13.0-17.0) g/dL Hct (39.6-50.0) % MPV (9.5-12.2) fL Immature Gran # (0.00-0.04) X 10*3/uL BUN/Creatinine Ratio (12.00-20.00) Ratio Glucose (70-110) mg/dL POC Glucose (mg/dL) 372 H 332 H 282 H (70-110) mg/dL Calcium (8.7-10.3) mg/dL Alkaline Phosphatase (41-126) U/L Total Protein (6.2-8.2) g/dL Albumin (3.8-4.9) g/dL Albumin/Globulin Ratio (1.60-3.17) g/dL 08/02/22 08/02/22 08/02/22 Range/Units 05:53 05:53 06:08 RBC 3.46 L (4.40-5.60) X 10*6/uL Hgb 10.1 L (13.0-17.0) g/dL Hct 30.9 L (39.6-50.0) % MPV 9.2 L (9.5-12.2) fL Immature Gran # 0.05 H (0.00-0.04) X 10*3/uL BUN/Creatinine Ratio 21.33 H (12.00-20.00) Ratio Glucose 147 H (70-110) mg/dL POC Glucose (mg/dL) 146 H (70-110) mg/dL Calcium 8.6 L (8.7-10.3) mg/dL Alkaline Phosphatase 173 H (41-126) U/L Total Protein 5.3 L (6.2-8.2) g/dL Albumin 3.2 L (3.8-4.9) g/dL Albumin/Globulin Ratio 1.52 L (1.60-3.17) g/dL Microbiology - Last 24 Hours (Table) 07/26/22 19:15 Blood Culture - Final Blood No Growth after 144 hours 07/26/22 19:33 Blood Culture - Final Blood No Growth after 144 hours Assessment and Plan Assessment: * Recurrent falls with tremors (tremors for past 6 months). Likely Parkinson's disease (since has mild increase tone in uppers at time and shuffling gait, hypophonia) and feels his symptoms are improving after start of Sinement. Some component of falls also could be component of peripheral neuropathy from his diabetes and neuropathy due to vitamin B12 deficiency. * Vitamin B12 deficiency (187). * Mild encephalopathy due to underlying urinary tract infection--mentation improving * Acute urinary tract infection * Fecal impaction * History of seizure provoked due to hypoglycemia (his stated episodes are not epileptic in nature) and last seizure was 1 year ago * Probable TIA in 2020 * Diabetes mellitus type 2 with recent HbA1c 8.0 Plan: Because of the vitamin B12 deficiency, Continue vitamin B12 1000mcg daily mouth. I recommend a repeat vitamin B12 2-4 weeks to assess if still deficient. Continue Sinemet 25-100 1 tab tid on 07/29/22for probable Parkinson's and per and she feels he is doing drastically better. Recommend MRI Brain w/o as outpatient to assess for any vascular insults that are old or anything contributing to his symptoms (seems unlikely). Physical therapy and occupation therapy are are consulted ID team is consulted for underlying urinary tract infection General surgery team is consulted for fecal impaction We'll defer the rest of the medical management the primary team. Upon discharge, recommend the patient to follow-up with neurologist as outpatient within 1-2 weeks. Plan was discussed with the patient's nurse. Neurology will sign off. Please reconsult if needed. Time with Patient: Less than 30
--- NOTE | 2022-08-02 16:14 | P.PN ---
Subjective Progress Note Date: 08/02/22 This is 71-year-old male patient who presents to the ER with complaints of hematuria starting about 2 days ago. According to ER records patient had difficulty urinating with some right flank pain with a low-grade temperature. Patient has past medical history of diabetes mellitus, high disorder, hyperte nsion, seizure disorder, encephalopathy. CT of abdomen and pelvis completed without contrast showing rectal fecal impaction normal appendix. Chest x-ray completed showing no active cardiopulmonary disease. Inspiration decreased compared to old exam. COVID-19 negative. UA positive for urinary tract infection. White blood cell elevated at 14.2. Vital signs temp 99.8, pulse rate 99, respiratory rate 14, blood pressure 124/70 with a pulse ox 98% room air. Patient has been started on IV antibiotics. Urine blood and sputum cultures ordered. This time patient is resting comfortably in bed. Patient is alert and oriented 2. Patient denies chest pain or shortness breath. Patient denies nausea vomiting or diarrhea. Patient denies any urinary burning or frequency On 07/28/2022 patient was seen and examined on the medical floor he is alert, slightly confused in no apparent distress there is no fever or chills no headache or dizziness no chest pain no shortness of breath no cough no nausea or vomiting no abdominal pain no diarrhea no blood in the stools he has a Stanley catheter in, and urine in the catheter bag is bloody. Patient underwent flexible sigmoidoscopy with manual disimpaction yesterday, he feels significant relief after procedure. Today patient is sitting up in a chair he is alert and trying to answer questions but he seems to be confused, which is a change from his baseline prior to admission, a neurology consultation will be requested in that regard. On 07/29/2022 patient is alert and oriented sitting up in chair. Patient does seem to have some slight confusion. Patient was seen by neurology services awaiting further recommendations. Patient does report improvement since fecal disimpaction patient remains on Rocephin per infectious disease. At this time patient denies chest pain or shortness breath. Patient denies nausea vomiting or diarrhea. Patient denies any urinary burning or frequency. On 07/30/2022 patient was seen and examined on the medical floor he is alert and oriented in no distress, today his is at the bedside. Patient does seem to have some slight confusion, he is still having difficulty finding words. Patient was seen by neurology services, Dr. Yoon advised that patient has Parkinson disease he was started on Sinemet during this admission Patient does report improvement since fecal disimpaction patient remains on Rocephin per infectious disease. At this time patient denies chest pain or shortness breath. Patient denies nausea vomiting or diarrhea. He has Stanley catheter in and urine is less bloody today. On 07/31/2022 patient was seen and examined on the medical floor he is alert and oriented 3 in no apparent distress he is still having difficulty with his speech but is improving gradually he is denying any chest pain shortness of breath or cough he has not had a bowel movement in a couple of days per patient. Case was discussed was Dr. Rei Deluca on neurologist, all his symptoms be related to Parkinson disease, patient is improving gradually since he was started on Sinemet. Patient was started on physical therapy and occupational therapy consultation for Dr. Guzmán was initiated. On 08/01/2022 patient is alert and oriented 3. patient is resting comfortably in bed. Discharge planning to [facility]. Surgical services following for fecal impaction. Neurology services following for new diagnosis of Parkinson's disease patient was started on Sinemet. Infectious d isease following for urinary tract infection and plans to DC the patient on Macrobid. This time patient denies chest pain or shortness breath. Patient denies nausea vomiting or diarrhea. Patient denies any urinary burning or frequency On 08/02/2022 patient was seen and examined on the medical floor he is alert and oriented 3 in no apparent distress, last night he had an episode of agitation a nd confusion he pulled his IV out and he was aggressive towards nurses, he was given 8 doses of IM Ativan and psychiatry consultation was requested. Today patient is much more calm and alert, his is at the bedside, and she was briefed about his progress, patient is still receiving enemas due to severe constipation and stool impaction, he is followed by Dr. Vaughan, he was started this morning on clear liquid diet, he is receiving Sinemet for new diagnosis of Parkinson disease. Physical therapy and occupational therapy are following Objective - Vital Signs Vital signs: Vital Signs Temp 98.0 F 08/02/22 07:35 Pulse 86 08/02/22 10:34 Resp 16 08/02/22 10:34 BP 149/69 08/02/22 07:35 Pulse Ox 92 L 08/02/22 07:35 FiO2 Intake & Output 08/01/22 08/02/22 08/02/22 18:59 06:59 18:59 Intake Total 500 Output Total 1 Balance 499 Weight 63.503 kg Intake: Intake, IV Titration 500 Amount Vancomycin 1,500 mg In 500 Sodium Chloride 0.9% 500 ml 500 ml @ 167 mls/hr IVPB Q12H [facility] Rx#: [id number] Output: Urine/Stool Mix 1 Other: Voiding Method Diaper Diaper Diaper # Voids 1 1 # Bowel Movements 2 2 - Exam Head normocephalic and atraumatic Neck supple no JVD Lungs clear to auscultation bilaterally no wheezing or crackles Heart regular rate and rhythm S1-S2, no rub or gallop Abdomen is soft nontender nondistended positive bowel sounds no hepatosplenomegaly Extremities no edema Neuro alert slightly confused in no apparent distress - Labs CBC & Chem 7: 08/02/22 05:53 08/02/22 05:53 Labs: Abnormal Lab Results - Last 24 Hours (Table) 08/01/22 08/01/22 08/02/22 Range/Units 16:39 19:39 01:51 RBC (4.40-5.60) X 10*6/uL Hgb (13.0-17.0) g/dL Hct (39.6-50.0) % MPV (9.5-12.2) fL Immature Gran # (0.00-0.04) X 10*3/uL BUN/Creatinine Ratio (12.00-20.00) Ratio Glucose (70-110) mg/dL POC Glucose (mg/dL) 372 H 332 H 282 H (70-110) mg/dL Calcium (8.7-10.3) mg/dL Alkaline Phosphatase (41-126) U/L Total Protein (6.2-8.2) g/dL Albumin (3.8-4.9) g/dL Albumin/Globulin Ratio (1.60-3.17) g/dL 08/02/22 08/02/22 08/02/22 Range/Units 05:53 05:53 06:08 RBC 3.46 L (4.40-5.60) X 10*6/uL Hgb 10.1 L (13.0-17.0) g/dL Hct 30.9 L (39.6-50.0) % MPV 9.2 L (9.5-12.2) fL Immature Gran # 0.05 H (0.00-0.04) X 10*3/uL BUN/Creatinine Ratio 21.33 H (12.00-20.00) Ratio Glucose 147 H (70-110) mg/dL POC Glucose (mg/dL) 146 H (70-110) mg/dL Calcium 8.6 L (8.7-10.3) mg/dL Alkaline Phosphatase 173 H (41-126) U/L Total Protein 5.3 L (6.2-8.2) g/dL Albumin 3.2 L (3.8-4.9) g/dL Albumin/Globulin Ratio 1.52 L (1.60-3.17) g/dL Microbiology - Last 24 Hours (Table) 07/26/22 19:15 Blood Culture - Final Blood No Growth after 144 hours 07/26/22 19:33 Blood Culture - Final Blood No Growth after 144 hours Assessment and Plan Assessment: 1. Hematuria secondary to urinary tract infection 2. Dehydration. Continue IV fluid 3. Fecal impaction. Enema ordered surgical service is consulted 4. Altered mental status changes. Head CT completed 5. Hyperglycemia secondary diabetes mellitus type 2, insulin resumed + scale coverage 6. History of Essential hypertension 8. History of Hyperlipidemia 9. Diabetes mellitus type 2 10. Depression 11. Recurrent falls with tremors probable Parkinson's disease per neurology se rvices patient has been started on Sinemet. Some improvement noted DVT prophylaxis Lovenox. GI prophylaxis Protonix Infectious disease, neurology surgical services following Surgical service is following for fecal impaction Repeat labs ordered in a.m. DC planning inpatient rehab versus [facility]
[2022-08-02 16:45] LABS: Glucose,Whole Blood 184 mg/dL (70-110)
[2022-08-02] MEDS ORDERED: DEXTROSE 50% SYRINGE 50 ML IVP PRN ×2 (17:37)
--- NOTE | 2022-08-02 17:59 | P.PN ---
Subjective Progress Note Date: 08/01/22 Principal diagnosis: UTI Patient is a 71-year old male with a past medical history taken for diabetes mellitus hypertension seizure disorder presented to hospital with he maturia weakness patient has been diagnosed with a symptomatic urinary tract infection. On today's evaluation that is 08/01/2022 patient continues to be afebrile the patient is breathing comfortably on room air, the patient denies chest pain shortness with or cough, the patient is abdominal pain no diarrhea,, no new symptoms Objective - Vital Signs Vital signs: Vital Signs Temp 97.8 F 08/01/22 07:19 Pulse 108 H 08/01/22 07:19 Resp 16 08/01/22 07:19 BP 152/70 08/01/22 07:19 Pulse Ox 94 L 08/01/22 07:19 FiO2 Intake & Output 07/31/22 08/01/22 08/01/22 18:59 06:59 18:59 Output Total 200 Balance -200 Output: Urine 200 Other: Voiding Method Diaper Diaper Diaper Indwelling Catheter # Voids 5 0 # Bowel Movements 3 1 - Exam GENERAL DESCRIPTION: Elderly male up in the chair, no distress. No tachypnea or accessory muscle of respiration use. LUNGS: Unlabored breathing. Clear to auscultation anteriorly. No wheeze or crackle. HEART: S1, S2, regular rate and rhythm. No loud murmur ABDOMEN: Soft, no tenderness , guarding or rigidity, no organomegaly EXTREMITIES: No edema of feet. - Labs CBC & Chem 7: 08/02/22 05:53 08/02/22 05:53 Labs: Abnormal Lab Results - Last 24 Hours (Table) 07/31/22 08/01/22 08/01/22 Range/Units 16:48 00:08 05:31 RBC 3.73 L (4.40-5.60) X 10*6/uL Hgb 10.9 L (13.0-17.0) g/dL Hct 33.9 L (39.6-50.0) % Carbon Dioxide (20.0-27.5) mmol/L Anion Gap (10.00-18.00) mmol/L Glucose (70-110) mg/dL POC Glucose (mg/dL) 174 H 299 H (70-110) mg/dL Calcium (8.7-10.3) mg/dL AST (14-35) U/L Alkaline Phosphatase (41-126) U/L Total Protein (6.2-8.2) g/dL Albumin (3.8-4.9) g/dL Albumin/Globulin Ratio (1.60-3.17) g/dL 08/01/22 08/01/22 08/01/22 Range/Units 05:31 06:04 11:47 RBC (4.40-5.60) X 10*6/uL Hgb (13.0-17.0) g/dL Hct (39.6-50.0) % Carbon Dioxide 17.1 L (20.0-27.5) mmol/L Anion Gap 18.90 H (10.00-18.00) mmol/L Glucose 304 H (70-110) mg/dL POC Glucose (mg/dL) 287 H 338 H (70-110) mg/dL Calcium 8.0 L (8.7-10.3) mg/dL AST 37 H (14-35) U/L Alkaline Phosphatase 208 H (41-126) U/L Total Protein 5.5 L (6.2-8.2) g/dL Albumin 3.2 L (3.8-4.9) g/dL Albumin/Globulin Ratio 1.39 L (1.60-3.17) g/dL Microbiology - Last 24 Hours (Table) 07/26/22 19:15 Blood Culture - Preliminary Blood No Growth after 120 hours 07/26/22 19:33 Blood Culture - Preliminary Blood No Growth after 120 hours 07/30/22 02:20 Urine Culture - Final Urine,Voided Assessment and Plan (1) UTI (urinary tract infection) Current Visit: No Status: Acute Code(s): N39.0 - URINARY TRACT INFECTION, SITE NOT SPECIFIED SNOMED Code(s): 80996241 Plan: 1patient presented to hospital with generalized weakness did have some difficulty urination apparently some hematuria and flank pain concerning for possible pyelonephritis in this patient who did have elevated white count and a low-grade fever on presentation the hospital ultrasound did not show any evidence of hydronephrosis or renal stone. 2penicillin allergy that would limit the number of antibiotics safe to use. 3the patient urine has been finalized with Enterococcus that is penicillin sens itive unfortunately patient is penicillin allergic, patient to continue vancomycin and monitor clinical course closely Time with Patient: Less than 30
--- NOTE | 2022-08-02 18:00 | P.PN ---
Subjective Progress Note Date: 08/02/22 Principal diagnosis: UTI Patient is a 71-year old male with a past medical history taken for diabetes mellitus hypertension seizure disorder presented to hospital with he maturia weakness patient has been diagnosed with a symptomatic urinary tract infection. On today's evaluation that is 08/02/2022 patient remains to be afebrile the patient is breathing comfortably on room air, the patient denies chest pain shortness with or cough, the patient denies nausea no vomiting no abdominal pain no diarrhea, Objective - Vital Signs Vital signs: Vital Signs Temp 98.0 F 08/02/22 07:35 Pulse 86 08/02/22 10:34 Resp 16 08/02/22 10:34 BP 149/69 08/02/22 07:35 Pulse Ox 92 L 08/02/22 07:35 FiO2 Intake & Output 08/01/22 08/02/22 08/02/22 18:59 06:59 18:59 Intake Total 500 Output Total 1 Balance 499 Weight 63.503 kg Intake: Intake, IV Titration 500 Amount Vancomycin 1,500 mg In 500 Sodium Chloride 0.9% 500 ml 500 ml @ 167 mls/hr IVPB Q12H [facility] Rx#: [id number] Output: Urine/Stool Mix 1 Other: Voiding Method Diaper Diaper Diaper # Voids 1 1 # Bowel Movements 2 2 - Exam GENERAL DESCRIPTION: Elderly male up in the chair, no distress. No tachypnea or accessory muscle of respiration use. LUNGS: Unlabored breathing. Clear to auscultation anteriorly. No wheeze or crackle. HEART: S1, S2, regular rate and rhythm. No loud murmur ABDOMEN: Soft, no tenderness , guarding or rigidity, no organomegaly EXTREMITIES: No edema of feet. - Labs CBC & Chem 7: 08/02/22 05:53 08/02/22 05:53 Labs: Abnormal Lab Results - Last 24 Hours (Table) 08/01/22 08/01/22 08/02/22 Range/Units 16:39 19:39 01:51 RBC (4.40-5.60) X 10*6/uL Hgb (13.0-17.0) g/dL Hct (39.6-50.0) % MPV (9.5-12.2) fL Immature Gran # (0.00-0.04) X 10*3/uL BUN/Creatinine Ratio (12.00-20.00) Ratio Glucose (70-110) mg/dL POC Glucose (mg/dL) 372 H 332 H 282 H (70-110) mg/dL Calcium (8.7-10.3) mg/dL Alkaline Phosphatase (41-126) U/L Total Protein (6.2-8.2) g/dL Albumin (3.8-4.9) g/dL Albumin/Globulin Ratio (1.60-3.17) g/dL 08/02/22 08/02/22 08/02/22 Range/Units 05:53 05:53 06:08 RBC 3.46 L (4.40-5.60) X 10*6/uL Hgb 10.1 L (13.0-17.0) g/dL Hct 30.9 L (39.6-50.0) % MPV 9.2 L (9.5-12.2) fL Immature Gran # 0.05 H (0.00-0.04) X 10*3/uL BUN/Creatinine Ratio 21.33 H (12.00-20.00) Ratio Glucose 147 H (70-110) mg/dL POC Glucose (mg/dL) 146 H (70-110) mg/dL Calcium 8.6 L (8.7-10.3) mg/dL Alkaline Phosphatase 173 H (41-126) U/L Total Protein 5.3 L (6.2-8.2) g/dL Albumin 3.2 L (3.8-4.9) g/dL Albumin/Globulin Ratio 1.52 L (1.60-3.17) g/dL Microbiology - Last 24 Hours (Table) 07/26/22 19:15 Blood Culture - Final Blood No Growth after 144 hours 07/26/22 19:33 Blood Culture - Final Blood No Growth after 144 hours Assessment and Plan (1) UTI (urinary tract infection) Current Visit: No Status: Acute Code(s): N39.0 - URINARY TRACT INFECTION, SITE NOT SPECIFIED SNOMED Code(s): 50655226 Plan: 1patient presented to hospital with generalized weakness did have some difficulty urination apparently some hematuria and flank pain concerning for possible pyelonephritis in this patient who did have elevated white count and a low-grade fever on presentation the hospital ultrasound did not show any evide nce of hydronephrosis or renal stone. 2penicillin allergy that would limit the number of antibiotics safe to use. 3the patient seemed to have shown clinical improvement, the patient urine has been finalized with Enterococcus that is penicillin sensitive unfortunately patient is penicillin allergic, patient to continue vancomycin and monitor kidney function closely Time with Patient: Less than 30
[2022-08-02] MEDS: SODIUM CHLORIDE 0.9% 1,000 ML IV SCH ×2 (18:27→18:28)
[2022-08-02] MEDS: PRAVASTATIN SODIUM 40 MG TAB PO SCH (20:24)
[2022-08-02] MEDS: INSULIN DETEMIR (LEVEMIR) 100 UNIT/ML SYR SQ SCH (20:46)
[2022-08-02 20:48] LABS: Glucose,Whole Blood 262 mg/dL (70-110)
[2022-08-03 01:52] LABS: Glucose,Whole Blood 215 mg/dL (70-110)
[2022-08-03] MEDS ORDERED: VANCOMYCIN TROUGH DUE 1 EACH MISC MISCELLANE ONE (05:00)
[2022-08-03 05:52] LABS: Glucose,Whole Blood 108 mg/dL (70-110)
[2022-08-03 06:18] LABS: ALT 34 U/L (4-49); AST 57 U/L (17-59); African American GFR (CKD) >90 (>60 ml/min/1.73 sqM); Albumin 3.2 g/dL (3.5-5.0); Albumin/Globulin Ratio 1.3; Alkaline Phosphatase 168 U/L (38-126); Anion Gap 5 mmol/L; Blood Urea Nitrogen 5 mg/dL (9-20); Calcium 8.2 mg/dL (8.4-10.2); Carbon Dioxide 28 mmol/L (22-30); Chloride 102 mmol/L (98-107); Globulin 2.4 g/dL; Glucose 99 mg/dL (74-99); Non-African American GFR(CKD) >90 (>60 ml/min/1.73 sqM); Potassium 3.4 mmol/L (3.5-5.1); Sodium 135 mmol/L (137-145); Total Bilirubin 0.3 mg/dL (0.2-1.3); Total Protein 5.6 g/dL (6.3-8.2)
[2022-08-03] MEDS: INSULIN ASPART (NovoLOG) 100 UNIT/ML VIAL SQ SCH ×3 (06:39→20:34)
[2022-08-03] MEDS: VANCOMYCIN 1,500 MG in SODIUM CHLORIDE 0.9% 500 ML 500 ML IVPB SCH ×2 (07:09→22:10)
[2022-08-03] MEDS ORDERED: POTASSIUM CHLORIDE ER 20 MEQ TAB.ER PO STA (07:52)
[2022-08-03 08:38] LABS: Basophils # (A) 0.04 X 10*3/uL (0.00-0.10); Basophils % (A) 0.5 %; Eosinophils # (A) 0.62 X 10*3/uL (0.04-0.35); HCT 30.8 % (39.6-50.0); HGB 10.5 g/dL (13.0-17.0); Immature Grans, Automated 0.4 %; Lymphocytes # (A) 1.46 X 10*3/uL (0.90-5.00); Lymphocytes % (A) 18.9 %; MCH 29.7 pg (27.0-32.0); MCHC 34.1 g/dL (32.0-37.0); MCV 87.3 fL (80.0-97.0); Mean Platelet Volume 9.1 fL (9.5-12.2); Monocytes # (A) 0.77 X 10*3/uL (0.20-1.00); Monocytes % (A) 9.9 %; NRBC Per 100 WBC 0 /100 WBCS (0.0-0.0); Neutrophils # (A) 4.82 X 10*3/uL (1.80-7.70); Neutrophils % (A) 62.3 %; Platelet Count 377 X 10*3/uL (140-440); RBC 3.53 X 10*6/uL (4.40-5.60); RDW 12.6 % (11.5-14.5); WBC 7.74 X 10*3/uL (4.50-10.00)
[2022-08-03] MEDS: ENOXAPARIN 40 MG/0.4 ML SYRINGE SQ SCH (09:44)
[2022-08-03] MEDS: CALCIUM CARBONATE 500 MG CHEWABLE PO SCH (09:45)
[2022-08-03] MEDS: CARBIDOPA-LEVODOPA 25-100 MG 1 EACH TAB PO SCH ×3 (09:45→22:18)
[2022-08-03] MEDS: MULTIVITAMINS, THERA 1 EACH TAB PO SCH (09:45)
[2022-08-03] MEDS: PANTOPRAZOLE 40 MG TABLET PO SCH (09:45)
[2022-08-03] MEDS: lamoTRIgine 100 MG TAB PO SCH ×2 (09:45→22:18)
[2022-08-03] MEDS: PARoxetine 20 MG TAB PO SCH (09:45)
[2022-08-03] MEDS: FAMOTIDINE 20 MG TAB PO SCH (09:45)
[2022-08-03] MEDS: lisinopriL 5 MG TAB PO SCH (09:45)
[2022-08-03] MEDS: CYANOCOBALAMIN 500 MCG TAB PO SCH (09:46)
[2022-08-03] MEDS: LACTULOSE 20 GM/30 ML CUP PO SCH ×3 (09:46→22:18)
--- NOTE | 2022-08-03 10:19 | XR ---
EXAMINATION TYPE: XR abdomen 2V DATE OF EXAM: 08/03/2022 COMPARISON: NONE HISTORY: Pain TECHNIQUE: Single supine KUB image of the abdomen is obtained FINDINGS: Mildly distended small and large bowel correlate for ileus. Gas and fecal material is seen in non-distended colon. No convincing evidence for pneumoperitoneum. No unusual calcifications. The lung bases are clear. The osseous structures are intact. IMPRESSION: 1. Mildly distended small and large bowel which may reflect ileus. Correlate clinically and progress studies would be of value.
--- NOTE | 2022-08-03 10:51 | P.PN ---
Subjective Progress Note Date: 08/03/22 This is 71-year-old male patient who presents to the ER with complaints of hematuria starting about 2 days ago. According to ER records patient had difficulty urinating with some right flank pain with a low-grade temperature. Patient has past medical history of diabetes mellitus, high disorder, hyperte nsion, seizure disorder, encephalopathy. CT of abdomen and pelvis completed without contrast showing rectal fecal impaction normal appendix. Chest x-ray completed showing no active cardiopulmonary disease. Inspiration decreased compared to old exam. COVID-19 negative. UA positive for urinary tract infection. White blood cell elevated at 14.2. Vital signs temp 99.8, pulse rate 99, respiratory rate 14, blood pressure 124/70 with a pulse ox 98% room air. Patient has been started on IV antibiotics. Urine blood and sputum cultures ordered. This time patient is resting comfortably in bed. Patient is alert and oriented 2. Patient denies chest pain or shortness breath. Patient denies nausea vomiting or diarrhea. Patient denies any urinary burning or frequency On 07/28/2022 patient was seen and examined on the medical floor he is alert, slightly confused in no apparent distress there is no fever or chills no headache or dizziness no chest pain no shortness of breath no cough no nausea or vomiting no abdominal pain no diarrhea no blood in the stools he has a Stanley catheter in, and urine in the catheter bag is bloody. Patient underwent flexible sigmoidoscopy with manual disimpaction yesterday, he feels significant relief after procedure. Today patient is sitting up in a chair he is alert and trying to answer questions but he seems to be confused, which is a change from his baseline prior to admission, a neurology consultation will be requested in that regard. On 07/29/2022 patient is alert and oriented sitting up in chair. Patient does seem to have some slight confusion. Patient was seen by neurology services awaiting further recommendations. Patient does report improvement since fecal disimpaction patient remains on Rocephin per infectious disease. At this time patient denies chest pain or shortness breath. Patient denies nausea vomiting or diarrhea. Patient denies any urinary burning or frequency. On 07/30/2022 patient was seen and examined on the medical floor he is alert and oriented in no distress, today his is at the bedside. Patient does seem to have some slight confusion, he is still having difficulty finding words. Patient was seen by neurology services, Dr. Yoon advised that patient has Parkinson disease he was started on Sinemet during this admission Patient does report improvement since fecal disimpaction patient remains on Rocephin per infectious disease. At this time patient denies chest pain or shortness breath. Patient denies nausea vomiting or diarrhea. He has Stanley catheter in and urine is less bloody today. On 07/31/2022 patient was seen and examined on the medical floor he is alert and oriented 3 in no apparent distress he is still having difficulty with his speech but is improving gradually he is denying any chest pain shortness of breath or cough he has not had a bowel movement in a couple of days per patient. Case was discussed was Dr. Rei Deluca on neurologist, all his symptoms be related to Parkinson disease, patient is improving gradually since he was started on Sinemet. Patient was started on physical therapy and occupational therapy consultation for Dr. Guzmán was initiated. On 08/01/2022 patient is alert and oriented 3. patient is resting comfortably in bed. [facility]charge planning [facility]. Surgical services following for fecal impaction. Neurology services following for new diagnosis of Parkinson's disease patient was started on Sinemet. Infectious d isease following for urinary tract infection and plans to DC the patient on Macrobid. This time patient denies chest pain or shortness breath. Patient denies nausea vomiting or diarrhea. Patient denies any urinary burning or frequency On 08/02/2022 patient was seen and examined on the medical floor he is alert and oriented 3 in no apparent distress, last night he had an episode of agitation a nd confusion he pulled his IV out and he was aggressive towards nurses, he was given 8 doses of IM Ativan and psychiatry consultation was requested. Today patient is much more calm and alert, his is at the bedside, and she was briefed about his progress, patient is still receiving enemas due to severe constipation and stool impaction, he is followed by Dr. Vaughan, he was started this morning on clear liquid diet, he is receiving Sinemet for new diagnosis of Parkinson disease. Physical therapy and occupational therapy are following On 08/03/2022 patient is alert and oriented 3. Abdominal x-ray completed this a.m. showing mildly distended small and large bowel which may reflect ileus correlate clinically. Surgical services are following awaiting further input. At this time patient denies chest pain or shortness of breath. Patient denies nausea vomiting or diarrhea. Patient denies any urinary burning or frequency Objective - Vital Signs Vital signs: Vital Signs Temp 97.9 F 08/03/22 07:49 Pulse 85 08/03/22 07:49 Resp 17 08/03/22 07:49 BP 155/69 08/03/22 07:49 Pulse Ox 91 L 08/03/22 07:49 FiO2 Intake & Output 08/02/22 08/03/22 08/03/22 18:59 06:59 18:59 Output Total 1200 Balance -1200 Weight 63.503 kg Output: Urine 1200 Other: Voiding Method Diaper Diaper # Voids 4 3 # Bowel Movements 0 5 - Exam Head normocephalic and atraumatic Neck supple no JVD Lungs clear to auscultation bilaterally no wheezing or crackles Heart regular rate and rhythm S1-S2, no rub or gallop Abdomen is soft nontender nondistended positive bowel sounds no hepatosplenomegaly Extremities no edema Neuro alert slightly confused in no apparent distress - Labs CBC & Chem 7: 08/03/22 05:42 08/03/22 05:42 Labs: Abnormal Lab Results - Last 24 Hours (Table) 08/02/22 08/02/22 08/02/22 Range/Units 05:53 16:41 20:45 RBC (4.40-5.60) X 10*6/uL Hgb (13.0-17.0) g/dL Hct (39.6-50.0) % MPV (9.5-12.2) fL Eosinophils # (0.04-0.35) X 10*3/uL Sodium (137-145) mmol/L Potassium (3.5-5.1) mmol/L BUN (9-20) mg/dL Creatinine (0.66-1.25) mg/dL POC Glucose (mg/dL) 184 H 262 H (70-110) mg/dL Hemoglobin A1c 8.0 H (0.0-6.0) % Calcium (8.4-10.2) mg/dL Alkaline Phosphatase (38-126) U/L Total Protein (6.3-8.2) g/dL Albumin (3.5-5.0) g/dL 08/03/22 08/03/22 08/03/22 Range/Units 01:50 05:42 05:42 RBC 3.53 L (4.40-5.60) X 10*6/uL Hgb 10.5 L (13.0-17.0) g/dL Hct 30.8 L (39.6-50.0) % MPV 9.1 L (9.5-12.2) fL Eosinophils # 0.62 H (0.04-0.35) X 10*3/uL Sodium 135 L (137-145) mmol/L Potassium 3.4 L (3.5-5.1) mmol/L BUN 5 L (9-20) mg/dL Creatinine 0.56 L (0.66-1.25) mg/dL POC Glucose (mg/dL) 215 H (70-110) mg/dL Hemoglobin A1c (0.0-6.0) % Calcium 8.2 L (8.4-10.2) mg/dL Alkaline Phosphatase 168 H (38-126) U/L Total Protein 5.6 L (6.3-8.2) g/dL Albumin 3.2 L (3.5-5.0) g/dL Microbiology - Last 24 Hours (Table) 07/26/22 19:15 Blood Culture - Final Blood No Growth after 144 hours Assessment and Plan Assessment: 1. Hematuria secondary to urinary tract infection 2. Dehydration. Continue IV fluid 3. Fecal impaction. Enema ordered surgical service is consulted 4. Altered mental status changes. Head CT completed 5. Hyperglycemia secondary diabetes mellitus type 2, insulin resumed + scale coverage 6. History of Essential hypertension 8. History of Hyperlipidemia 9. Diabetes mellitus type 2 10. Depression 11. Recurrent falls with tremors probable Parkinson's disease per neurology services patient has been started on Sinemet. Some improvement noted DVT prophylaxis Lovenox. GI prophylaxis Protonix Infectious disease, neurology surgical services following Surgical service is following for fecal impaction Repeat labs ordered in a.m. DC planning inpatient rehab versus [facility]
[2022-08-03] MEDS: SODIUM CHLORIDE 0.9% 1,000 ML IV SCH ×3 (10:57→20:43)
[2022-08-03 11:44] LABS: Glucose,Whole Blood 137 mg/dL (70-110)
--- NOTE | 2022-08-03 13:21 | P.PN ---
Subjective Progress Note Date: 08/03/22 CHIEF COMPLAINT: Fecal impaction HISTORY OF PRESENT ILLNESS: Patient is sitting up in chair. He denies any abdominal pain. He denies any nausea or vomiting. He is having bowel movements. He did receive the soapsuds enema yesterday. He is receiving the lactulose. Abdominal x-ray showing mildly distended small and large bowel which may reflect ileus. Gas and fecal material seen in nondistended colon. Afebrile. WBC is 7.74 Hgb 10.5 platelets 377 Pino 135 potassium 3.4 creatinine 0.56 Patient seen and examined with Dr. Moore PHYSICAL EXAM: VITAL SIGNS: Reviewed. GENERAL: Well-developed in no acute distress. ABDOMEN:soft. Decrease in abdominal distention. Nontender. ASSESSMENT: 1. Fecal impaction status post flexible sigmoidoscopy with manual disimpaction 2. UTI 3. Ileus PLAN: -Advance diet to full liquids. Start regular diet tomorrow. -Continue lactulose -Increase activity as tolerated -Continue supportive care -Antibiotics per ID service for UTI Physician Locker Room Attendant note has been reviewed by physician. Signing provider agrees with the documented findings, assessment, and plan of care. Objective - Vital Signs Vital signs: Vital Signs Temp 97.9 F 08/03/22 07:49 Pulse 85 08/03/22 07:49 Resp 17 08/03/22 07:49 BP 155/69 08/03/22 07:49 Pulse Ox 91 L 08/03/22 07:49 FiO2 Intake & Output 08/02/22 08/03/22 08/03/22 18:59 06:59 18:59 Output Total 1200 Balance -1200 Weight 63.503 kg Output: Urine 1200 Other: Voiding Method Diaper Diaper Diaper # Voids 4 3 # Bowel Movements 0 5 - Labs CBC & Chem 7: 08/03/22 05:42 08/03/22 05:42 Labs: Abnormal Lab Results - Last 24 Hours (Table) 08/02/22 08/02/22 08/02/22 Range/Units 05:53 16:41 20:45 RBC (4.40-5.60) X 10*6/uL Hgb (13.0-17.0) g/dL Hct (39.6-50.0) % MPV (9.5-12.2) fL Eosinophils # (0.04-0.35) X 10*3/uL Sodium (137-145) mmol/L Potassium (3.5-5.1) mmol/L BUN (9-20) mg/dL Creatinine (0.66-1.25) mg/dL POC Glucose (mg/dL) 184 H 262 H (70-110) mg/dL Hemoglobin A1c 8.0 H (0.0-6.0) % Calcium (8.4-10.2) mg/dL Alkaline Phosphatase (38-126) U/L Total Protein (6.3-8.2) g/dL Albumin (3.5-5.0) g/dL 08/03/22 08/03/22 08/03/22 Range/Units 01:50 05:42 05:42 RBC 3.53 L (4.40-5.60) X 10*6/uL Hgb 10.5 L (13.0-17.0) g/dL Hct 30.8 L (39.6-50.0) % MPV 9.1 L (9.5-12.2) fL Eosinophils # 0.62 H (0.04-0.35) X 10*3/uL Sodium 135 L (137-145) mmol/L Potassium 3.4 L (3.5-5.1) mmol/L BUN 5 L (9-20) mg/dL Creatinine 0.56 L (0.66-1.25) mg/dL POC Glucose (mg/dL) 215 H (70-110) mg/dL Hemoglobin A1c (0.0-6.0) % Calcium 8.2 L (8.4-10.2) mg/dL Alkaline Phosphatase 168 H (38-126) U/L Total Protein 5.6 L (6.3-8.2) g/dL Albumin 3.2 L (3.5-5.0) g/dL 08/03/22 Range/Units 11:43 RBC (4.40-5.60) X 10*6/uL Hgb (13.0-17.0) g/dL Hct (39.6-50.0) % MPV (9.5-12.2) fL Eosinophils # (0.04-0.35) X 10*3/uL Sodium (137-145) mmol/L Potassium (3.5-5.1) mmol/L BUN (9-20) mg/dL Creatinine (0.66-1.25) mg/dL POC Glucose (mg/dL) 137 H (70-110) mg/dL Hemoglobin A1c (0.0-6.0) % Calcium (8.4-10.2) mg/dL Alkaline Phosphatase (38-126) U/L Total Protein (6.3-8.2) g/dL Albumin (3.5-5.0) g/dL
[2022-08-03] MEDS ORDERED: LORazepam 1 MG/0.5 ML VIAL IV PRN (14:16)
[2022-08-03] MEDS: LORazepam 1 MG/0.5 ML VIAL IM PRN (14:33)
[2022-08-03 16:23] LABS: Glucose,Whole Blood 194 mg/dL (70-110)
[2022-08-03 20:44] LABS: Glucose,Whole Blood 305 mg/dL (70-110)
[2022-08-03] MEDS ORDERED: INSULIN ASPART (NovoLOG) 100 UNIT/ML VIAL SQ ONE (21:16)
[2022-08-03] MEDS: PRAVASTATIN SODIUM 40 MG TAB PO SCH (22:18)
[2022-08-03] MEDS: INSULIN DETEMIR (LEVEMIR) 100 UNIT/ML SYR SQ SCH (23:06)
[2022-08-04 06:31] LABS: Glucose,Whole Blood 379 mg/dL (70-110)
[2022-08-04] MEDS: INSULIN ASPART (NovoLOG) 100 UNIT/ML VIAL SQ SCH ×3 (06:35→16:52)
[2022-08-04] MEDS: VANCOMYCIN 1,500 MG in SODIUM CHLORIDE 0.9% 500 ML 500 ML IVPB SCH ×2 (06:35→16:54)
[2022-08-04] MEDS: LACTULOSE 20 GM/30 ML CUP PO SCH ×3 (08:57→21:02)
[2022-08-04] MEDS: ENOXAPARIN 40 MG/0.4 ML SYRINGE SQ SCH (08:57)
[2022-08-04] MEDS: lamoTRIgine 100 MG TAB PO SCH ×2 (08:58→21:06)
[2022-08-04] MEDS: PANTOPRAZOLE 40 MG TABLET PO SCH (08:58)
[2022-08-04] MEDS: FAMOTIDINE 20 MG TAB PO SCH (08:58)
[2022-08-04] MEDS: CALCIUM CARBONATE 500 MG CHEWABLE PO SCH (08:58)
[2022-08-04] MEDS: MULTIVITAMINS, THERA 1 EACH TAB PO SCH (08:58)
[2022-08-04] MEDS: CARBIDOPA-LEVODOPA 25-100 MG 1 EACH TAB PO SCH ×3 (08:58→21:06)
[2022-08-04] MEDS: PARoxetine 20 MG TAB PO SCH (08:58)
[2022-08-04] MEDS: lisinopriL 5 MG TAB PO SCH (08:58)
[2022-08-04] MEDS: CYANOCOBALAMIN 500 MCG TAB PO SCH (09:06)
[2022-08-04 11:25] LABS: Glucose,Whole Blood 377 mg/dL (70-110)
[2022-08-04 11:26] LABS: Basophils # (A) 0.05 X 10*3/uL (0.00-0.10); Basophils % (A) 0.9 %; Eosinophils # (A) 0.48 X 10*3/uL (0.04-0.35); Eosinophils % (A) 8.2 %; HCT 37.2 % (39.6-50.0); HGB 12.3 g/dL (13.0-17.0); Immature Grans, Automated 0.7 %; Lymphocytes # (A) 1.09 X 10*3/uL (0.90-5.00); Lymphocytes % (A) 18.7 %; MCH 29.5 pg (27.0-32.0); MCHC 33.1 g/dL (32.0-37.0); MCV 89.2 fL (80.0-97.0); Mean Platelet Volume 9.3 fL (9.5-12.2); Monocytes # (A) 0.43 X 10*3/uL (0.20-1.00); Monocytes % (A) 7.4 %; NRBC Per 100 WBC 0 /100 WBCS (0.0-0.0); Neutrophils # (A) 3.75 X 10*3/uL (1.80-7.70); Neutrophils % (A) 64.1 %; Platelet Count 383 X 10*3/uL (140-440); RBC 4.17 X 10*6/uL (4.40-5.60); RDW 12.5 % (11.5-14.5); WBC 5.84 X 10*3/uL (4.50-10.00)
[2022-08-04 11:44] LABS: African American GFR (CKD) 105.6 (60.0-200.0); Albumin 3.7 g/dL (3.8-4.9); Albumin/Globulin Ratio 1.48 (1.60-3.17); Anion Gap 18.8 mmol/L (10.00-18.00); BUN/Creat Ratio 7.13 Ratio (12.00-20.00); Blood Urea Nitrogen 5.7 mg/dL (9.0-27.0); Calcium 8.9 mg/dL (8.7-10.3); Carbon Dioxide 21.2 mmol/L (20.0-27.5); Globulin 2.5 g/dL (1.6-3.3); Non-African American GFR(CKD) 91.1 (60.0-200.0); Potassium 4.9 mmol/L (3.5-5.5); Total Bilirubin 0.4 mg/dL (0.30-1.20); Total Protein 6.2 g/dL (6.2-8.2)
--- NOTE | 2022-08-04 12:24 | P.PN ---
Subjective Progress Note Date: 08/04/22 This is 71-year-old male patient who presents to the ER with complaints of hematuria starting about 2 days ago. According to ER records patient had difficulty urinating with some right flank pain with a low-grade temperature. Patient has past medical history of diabetes mellitus, high disorder, hyperte nsion, seizure disorder, encephalopathy. CT of abdomen and pelvis completed without contrast showing rectal fecal impaction normal appendix. Chest x-ray completed showing no active cardiopulmonary disease. Inspiration decreased compared to old exam. COVID-19 negative. UA positive for urinary tract infection. White blood cell elevated at 14.2. Vital signs temp 99.8, pulse rate 99, respiratory rate 14, blood pressure 124/70 with a pulse ox 98% room air. Patient has been started on IV antibiotics. Urine blood and sputum cultures ordered. This time patient is resting comfortably in bed. Patient is alert and oriented 2. Patient denies chest pain or shortness breath. Patient denies nausea vomiting or diarrhea. Patient denies any urinary burning or frequency On 07/28/2022 patient was seen and examined on the medical floor he is alert, slightly confused in no apparent distress there is no fever or chills no headache or dizziness no chest pain no shortness of breath no cough no nausea or vomiting no abdominal pain no diarrhea no blood in the stools he has a Stanley catheter in, and urine in the catheter bag is bloody. Patient underwent flexible sigmoidoscopy with manual disimpaction yesterday, he feels significant relief after procedure. Today patient is sitting up in a chair he is alert and trying to answer questions but he seems to be confused, which is a change from his baseline prior to admission, a neurology consultation will be requested in that regard. On 07/29/2022 patient is alert and oriented sitting up in chair. Patient does seem to have some slight confusion. Patient was seen by neurology services awaiting further recommendations. Patient does report improvement since fecal disimpaction patient remains on Rocephin per infectious disease. At this time patient denies chest pain or shortness breath. Patient denies nausea vomiting or diarrhea. Patient denies any urinary burning or frequency. On 07/30/2022 patient was seen and examined on the medical floor he is alert and oriented in no distress, today his is at the bedside. Patient does seem to have some slight confusion, he is still having difficulty finding words. Patient was seen by neurology services, Dr. Yoon advised that patient has Parkinson disease he was started on Sinemet during this admission Patient does report improvement since fecal disimpaction patient remains on Rocephin per infectious disease. At this time patient denies chest pain or shortness breath. Patient denies nausea vomiting or diarrhea. He has Stanley catheter in and urine is less bloody today. On 07/31/2022 patient was seen and examined on the medical floor he is alert and oriented 3 in no apparent distress he is still having difficulty with his speech but is improving gradually he is denying any chest pain shortness of breath or cough he has not had a bowel movement in a couple of days per patient. Case was discussed was Dr. Rei Deluca on neurologist, all his symptoms be related to Parkinson disease, patient is improving gradually since he was started on Sinemet. Patient was started on physical therapy and occupational therapy consultation for Dr. Guzmán was initiated. On 08/01/2022 patient is alert and oriented 3. patient is resting comfortably in bed. [facility] Surgical services following for fecal impaction. Neurology services following for new diagnosis of Parkinson's disease patient was started on Sinemet. Infectious d isease following for urinary tract infection and plans to DC the patient on Macrobid. This time patient denies chest pain or shortness breath. Patient denies nausea vomiting or diarrhea. Patient denies any urinary burning or frequency On 08/02/2022 patient was seen and examined on the medical floor he is alert and oriented 3 in no apparent distress, last night he had an episode of agitation a nd confusion he pulled his IV out and he was aggressive towards nurses, he was given 8 doses of IM Ativan and psychiatry consultation was requested. Today patient is much more calm and alert, his is at the bedside, and she was briefed about his progress, patient is still receiving enemas due to severe constipation and stool impaction, he is followed by Dr. Vaughan, he was started this morning on clear liquid diet, he is receiving Sinemet for new diagnosis of Parkinson disease. Physical therapy and occupational therapy are following On 08/03/2022 patient is alert and oriented 3. Abdominal x-ray completed this a.m. showing mildly distended small and large bowel which may reflect ileus correlate clinically. Surgical services are following awaiting further input. At this time patient denies chest pain or shortness of breath. Patient denies nausea vomiting or diarrhea. Patient denies any urinary burning or frequency. On 08/04/2022 patient was seen and examined on the medical floor he is alert and oriented 3 in no apparent distress he is feeling better he is more calm today t here is no fever or chills no headache or dizziness no chest pain no shortness of breath no cough no nausea or vomiting no abdominal pain no diarrhea no blood in the stools no burning with urination no frequency or urgency and no hematuria. Diet is being advanced gradually by surgery patient did not have a bowel movement today physical therapy is ambulating patient possible discharge in the next 2-3 days if improving. Objective - Vital Signs Vital signs: Vital Signs Temp 98.1 F 08/04/22 08:00 Pulse 100 08/04/22 08:00 Resp 18 08/04/22 08:00 BP 160/79 08/04/22 08:00 Pulse Ox 93 L 08/04/22 08:00 FiO2 Intake & Output 08/03/22 08/04/22 08/04/22 18:59 06:59 18:59 Other: Voiding Method Diaper Diaper Diaper # Voids 2 2 2 # Bowel Movements 1 - Exam Head normocephalic and atraumatic Neck supple no JVD Lungs clear to auscultation bilaterally no wheezing or crackles Heart regular rate and rhythm S1-S2, no rub or gallop Abdomen is soft nontender nondistended positive bowel sounds no hepatosplenomegaly Extremities no edema Neuro alert slightly confused in no apparent distress - Labs CBC & Chem 7: 08/04/22 06:07 08/04/22 06:07 Labs: Abnormal Lab Results - Last 24 Hours (Table) 08/03/22 08/03/22 08/04/22 Range/Units 16:22 20:42 06:07 RBC 4.17 L (4.40-5.60) X 10*6/uL Hgb 12.3 L (13.0-17.0) g/dL Hct 37.2 L (39.6-50.0) % MPV 9.3 L (9.5-12.2) fL Eosinophils # 0.48 H (0.04-0.35) X 10*3/uL Chloride (96-109) mmol/L Anion Gap (10.00-18.00) mmol/L BUN (9.0-27.0) mg/dL BUN/Creatinine Ratio (12.00-20.00) Ratio Glucose (70-110) mg/dL POC Glucose (mg/dL) 194 H 305 H (70-110) mg/dL AST (14-35) U/L ALT (10-49) U/L Alkaline Phosphatase (41-126) U/L Albumin (3.8-4.9) g/dL Albumin/Globulin Ratio (1.60-3.17) g/dL 08/04/22 08/04/22 08/04/22 Range/Units 06:07 06:28 11:24 RBC (4.40-5.60) X 10*6/uL Hgb (13.0-17.0) g/dL Hct (39.6-50.0) % MPV (9.5-12.2) fL Eosinophils # (0.04-0.35) X 10*3/uL Chloride 95 L (96-109) mmol/L Anion Gap 18.80 H (10.00-18.00) mmol/L BUN 5.7 L (9.0-27.0) mg/dL BUN/Creatinine Ratio 7.13 L (12.00-20.00) Ratio Glucose 395 H (70-110) mg/dL POC Glucose (mg/dL) 379 H 377 H (70-110) mg/dL AST 79 H (14-35) U/L ALT 60 H (10-49) U/L Alkaline Phosphatase 197 H (41-126) U/L Albumin 3.7 L (3.8-4.9) g/dL Albumin/Globulin Ratio 1.48 L (1.60-3.17) g/dL Assessment and Plan Assessment: 1. Hematuria secondary to urinary tract infection 2. Dehydration. Continue IV fluid 3. Fecal impaction. Enema ordered surgical service is consulted 4. Altered mental status changes. Head CT completed 5. Hyperglycemia secondary diabetes mellitus type 2, insulin resumed + scale coverage 6. History of Essential hypertension 8. History of Hyperlipidemia 9. Diabetes mellitus type 2 10. Depression 11. Recurrent falls with tremors probable Parkinson's disease per neurology services patient has been started on Sinemet. Some improvement noted DVT prophylaxis Lovenox. GI prophylaxis Protonix Infectious disease, neurology surgical services following Surgical service is following for fecal impaction Repeat labs ordered in a.m. DC planning inpatient rehab versus [facility]
--- NOTE | 2022-08-04 12:38 | P.PN ---
Progress Note - Text Progress Note Date: 08/04/22 Case was discussed today with patient 's over the phone per her request, all questions answered
[2022-08-04 16:36] LABS: Glucose,Whole Blood 316 mg/dL (70-110)
--- NOTE | 2022-08-04 18:32 | P.PN ---
Subjective Progress Note Date: 08/04/22 CHIEF COMPLAINT: Fecal impaction HISTORY OF PRESENT ILLNESS: The patient is a 71-year-old male with ileus including fecal impaction. Per discussing with healthcare team, patient has been refusing to eat. Patient denies hunger. He had no bowel movements today. He denies abdominal pain. He has a bedside sitter. ROS: No reports of nausea and vomiting. No bowel movements. No fevers or chills. No new chest pain. No productive sputum PHYSICAL EXAM: VITAL SIGNS: Reviewed CONSTITUTIONAL: Well developed and in no acute distress. EYES: Conjuctivae without sclera icterus. Extraocular movements grossly intact. HEAD, EARS, NOSE, THROAT: Moist buccal mucosa. Head is atraumatic, normocephalic . Hears conversational speech. No nasal drainage. RESPIRATORY: Non-labored respirations and equal bilateral excursions. CARDIOVASCULAR: Palpable 2+ radial pulses. ABDOMEN: No peritonitis. MUSCULOSKELETAL: No gross deformity of the lower extremities noted. No clubbing. No cyanosis. SKIN: Good skin turgor. Well perfused. NEUROLOGIC: Cranial nerves II through XII grossly intact. No focal or lateralizing signs. PSYCH: Flat affect. Alert and oriented to person, place and time. CLINICAL LABS: Reviewed. WBC normal at 5.8. Hemoglobin low 12.3. LFTs elevated. STUDIES: Abdominal x-ray independent review demonstrates diffuse gaseous pattern. Resolved fecal impaction. No obstruction. This is my independent interpretation. ASSESSMENT: 1. Fecal impaction with ileus 2. Anorexia PLAN: 1. Recommend diet as tolerated. 2. Ambulation encouraged Objective - Vital Signs Vital signs: Vital Signs Temp 98.1 F 08/04/22 08:00 Pulse 100 08/04/22 08:00 Resp 18 08/04/22 08:00 BP 160/79 08/04/22 08:00 Pulse Ox 93 L 08/04/22 08:00 FiO2 Intake & Output 08/03/22 08/04/22 08/04/22 18:59 06:59 18:59 Other: Voiding Method Diaper Diaper Diaper # Voids 2 2 2 # Bowel Movements 1 - Labs CBC & Chem 7: 08/04/22 06:07 08/04/22 06:07 Labs: Abnormal Lab Results - Last 24 Hours (Table) 08/03/22 08/03/22 08/04/22 Range/Units 16:22 20:42 06:07 RBC 4.17 L (4.40-5.60) X 10*6/uL Hgb 12.3 L (13.0-17.0) g/dL Hct 37.2 L (39.6-50.0) % MPV 9.3 L (9.5-12.2) fL Eosinophils # 0.48 H (0.04-0.35) X 10*3/uL Chloride (96-109) mmol/L Anion Gap (10.00-18.00) mmol/L BUN (9.0-27.0) mg/dL BUN/Creatinine Ratio (12.00-20.00) Ratio Glucose (70-110) mg/dL POC Glucose (mg/dL) 194 H 305 H (70-110) mg/dL AST (14-35) U/L ALT (10-49) U/L Alkaline Phosphatase (41-126) U/L Albumin (3.8-4.9) g/dL Albumin/Globulin Ratio (1.60-3.17) g/dL 08/04/22 08/04/22 08/04/22 Range/Units 06:07 06:28 11:24 RBC (4.40-5.60) X 10*6/uL Hgb (13.0-17.0) g/dL Hct (39.6-50.0) % MPV (9.5-12.2) fL Eosinophils # (0.04-0.35) X 10*3/uL Chloride 95 L (96-109) mmol/L Anion Gap 18.80 H (10.00-18.00) mmol/L BUN 5.7 L (9.0-27.0) mg/dL BUN/Creatinine Ratio 7.13 L (12.00-20.00) Ratio Glucose 395 H (70-110) mg/dL POC Glucose (mg/dL) 379 H 377 H (70-110) mg/dL AST 79 H (14-35) U/L ALT 60 H (10-49) U/L Alkaline Phosphatase 197 H (41-126) U/L Albumin 3.7 L (3.8-4.9) g/dL Albumin/Globulin Ratio 1.48 L (1.60-3.17) g/dL
[2022-08-04 19:59] LABS: Glucose,Whole Blood 315 mg/dL (70-110)
[2022-08-04] MEDS: SODIUM CHLORIDE 0.9% 1,000 ML IV SCH (21:06)
[2022-08-04] MEDS: INSULIN DETEMIR (LEVEMIR) 100 UNIT/ML SYR SQ SCH (21:06)
[2022-08-04] MEDS: PRAVASTATIN SODIUM 40 MG TAB PO SCH (21:06)
[2022-08-05 04:54] LABS: African American GFR (CKD) >90 (>60 ml/min/1.73 sqM); Non-African American GFR(CKD) >90 (>60 ml/min/1.73 sqM)
[2022-08-05 06:00] LABS: Glucose,Whole Blood 191 mg/dL (70-110)
[2022-08-05] MEDS: VANCOMYCIN 1,500 MG in SODIUM CHLORIDE 0.9% 500 ML 500 ML IVPB SCH ×2 (06:27→16:50)
[2022-08-05] MEDS: INSULIN ASPART (NovoLOG) 100 UNIT/ML VIAL SQ SCH ×3 (06:30→16:50)
[2022-08-05] MEDS: PANTOPRAZOLE 40 MG TABLET PO SCH (06:31)
[2022-08-05] MEDS: ENOXAPARIN 40 MG/0.4 ML SYRINGE SQ SCH (08:20)
[2022-08-05] MEDS: CARBIDOPA-LEVODOPA 25-100 MG 1 EACH TAB PO SCH ×3 (08:21→21:35)
[2022-08-05] MEDS: CYANOCOBALAMIN 500 MCG TAB PO SCH (08:21)
[2022-08-05] MEDS: MULTIVITAMINS, THERA 1 EACH TAB PO SCH (08:21)
[2022-08-05] MEDS: CALCIUM CARBONATE 500 MG CHEWABLE PO SCH (08:21)
[2022-08-05] MEDS: FAMOTIDINE 20 MG TAB PO SCH (08:21)
[2022-08-05] MEDS: lamoTRIgine 100 MG TAB PO SCH ×2 (08:21→21:35)
[2022-08-05] MEDS: PARoxetine 20 MG TAB PO SCH (08:21)
[2022-08-05] MEDS: lisinopriL 5 MG TAB PO SCH (08:21)
[2022-08-05] MEDS: LACTULOSE 20 GM/30 ML CUP PO SCH ×2 (08:22→21:38)
--- NOTE | 2022-08-05 09:30 | P.PN ---
Subjective Progress Note Date: 08/05/22 This is 71-year-old male patient who presents to the ER with complaints of hematuria starting about 2 days ago. According to ER records patient had difficulty urinating with some right flank pain with a low-grade temperature. Patient has past medical history of diabetes mellitus, high disorder, hyperte nsion, seizure disorder, encephalopathy. CT of abdomen and pelvis completed without contrast showing rectal fecal impaction normal appendix. Chest x-ray completed showing no active cardiopulmonary disease. Inspiration decreased compared to old exam. COVID-19 negative. UA positive for urinary tract infection. White blood cell elevated at 14.2. Vital signs temp 99.8, pulse rate 99, respiratory rate 14, blood pressure 124/70 with a pulse ox 98% room air. Patient has been started on IV antibiotics. Urine blood and sputum cultures ordered. This time patient is resting comfortably in bed. Patient is alert and oriented 2. Patient denies chest pain or shortness breath. Patient denies nausea vomiting or diarrhea. Patient denies any urinary burning or frequency On 07/28/2022 patient was seen and examined on the medical floor he is alert, slightly confused in no apparent distress there is no fever or chills no headache or dizziness no chest pain no shortness of breath no cough no nausea or vomiting no abdominal pain no diarrhea no blood in the stools he has a Stanley catheter in, and urine in the catheter bag is bloody. Patient underwent flexible sigmoidoscopy with manual disimpaction yesterday, he feels significant relief after procedure. Today patient is sitting up in a chair he is alert and trying to answer questions but he seems to be confused, which is a change from his baseline prior to admission, a neurology consultation will be requested in that regard. On 07/29/2022 patient is alert and oriented sitting up in chair. Patient does seem to have some slight confusion. Patient was seen by neurology services awaiting further recommendations. Patient does report improvement since fecal disimpaction patient remains on Rocephin per infectious disease. At this time patient denies chest pain or shortness breath. Patient denies nausea vomiting or diarrhea. Patient denies any urinary burning or frequency. On 07/30/2022 patient was seen and examined on the medical floor he is alert and oriented in no distress, today his is at the bedside. Patient does seem to have some slight confusion, he is still having difficulty finding words. Patient was seen by neurology services, Dr. Yoon advised that patient has Parkinson disease he was started on Sinemet during this admission Patient does report improvement since fecal disimpaction patient remains on Rocephin per infectious disease. At this time patient denies chest pain or shortness breath. Patient denies nausea vomiting or diarrhea. He has Stanley catheter in and urine is less bloody today. On 07/31/2022 patient was seen and examined on the medical floor he is alert and oriented 3 in no apparent distress he is still having difficulty with his speech but is improving gradually he is denying any chest pain shortness of breath or cough he has not had a bowel movement in a couple of days per patient. Case was discussed was Dr. Rei Deluca on neurologist, all his symptoms be related to Parkinson disease, patient is improving gradually since he was started on Sinemet. Patient was started on physical therapy and occupational therapy consultation for Dr. Guzmán was initiated. On 08/01/2022 patient is alert and oriented 3. patient is resting comfortably in bed. Discharge planning to inpatient rehab versus [facility]. Surgical services following for fecal impaction. Neurology services following for new diagnosis of Parkinson's disease patient was started on Sinemet. Infectious d isease following for urinary tract infection and plans to DC the patient on Macrobid. This time patient denies chest pain or shortness breath. Patient denies nausea vomiting or diarrhea. Patient denies any urinary burning or frequency On 08/02/2022 patient was seen and examined on the medical floor he is alert and oriented 3 in no apparent distress, last night he had an episode of agitation a nd confusion he pulled his IV out and he was aggressive towards nurses, he was given 8 doses of IM Ativan and psychiatry consultation was requested. Today patient is much more calm and alert, his is at the bedside, and she was briefed about his progress, patient is still receiving enemas due to severe constipation and stool impaction, he is followed by Dr. Vaughan, he was started this morning on clear liquid diet, he is receiving Sinemet for new diagnosis of Parkinson disease. Physical therapy and occupational therapy are following On 08/03/2022 patient is alert and oriented 3. Abdominal x-ray completed this a.m. showing mildly distended small and large bowel which may reflect ileus correlate clinically. Surgical services are following awaiting further input. At this time patient denies chest pain or shortness of breath. Patient denies nausea vomiting or diarrhea. Patient denies any urinary burning or frequency. On 08/04/2022 patient was seen and examined on the medical floor he is alert and oriented 3 in no apparent distress he is feeling better he is more calm today t here is no fever or chills no headache or dizziness no chest pain no shortness of breath no cough no nausea or vomiting no abdominal pain no diarrhea no blood in the stools no burning with urination no frequency or urgency and no hematuria. Diet is being advanced gradually by surgery patient did not have a bowel movement today physical therapy is ambulating patient possible discharge in the next 2-3 days if improving. On 08/05/2022 patient was seen and examined on the medical floor he is alert responsive in no apparent distress he is still having significant difficulty with his speech otherwise no complaints at this time there is no fever or chills no headache or dizziness no chest pain no shortness of breath no cough no nausea or vomiting no abdominal pain no diarrhea and no urinary symptoms Objective - Vital Signs Vital signs: Vital Signs Temp 98 F 08/05/22 07:46 Pulse 85 08/05/22 08:23 Resp 16 08/05/22 08:23 BP 152/76 08/05/22 07:46 Pulse Ox 95 08/05/22 07:46 FiO2 Intake & Output 08/04/22 08/05/22 08/05/22 18:59 06:59 18:59 Intake Total 1820 Output Total 5 Balance 1815 Intake: Intake, IV Titration 1340 Amount Sodium Chloride 0.9% 1, 840 000 ml @ 70 mls/hr IV . [id number] GEORGINA Rx#:[id number] Vancomycin 1,500 mg In 500 Sodium Chloride 0.9% 500 ml 500 ml @ 167 mls/hr IVPB Q12H GEORGINA Rx#: [id number] Oral 480 Output: Urine 5 Other: Voiding Method Diaper Diaper Diaper # Voids 1 3 # Bowel Movements 0 - Exam Head normocephalic and atraumatic Neck supple no JVD Lungs clear to auscultation bilaterally no wheezing or crackles Heart regular rate and rhythm S1-S2, no rub or gallop Abdomen is soft nontender nondistended positive bowel sounds no hepatosplenomegaly Extremities no edema Neuro alert slightly confused in no apparent distress - Labs CBC & Chem 7: 08/04/22 06:07 08/05/22 03:44 Labs: Abnormal Lab Results - Last 24 Hours (Table) 08/04/22 08/04/22 08/04/22 Range/Units 06:07 06:07 11:24 RBC 4.17 L (4.40-5.60) X 10*6/uL Hgb 12.3 L (13.0-17.0) g/dL Hct 37.2 L (39.6-50.0) % MPV 9.3 L (9.5-12.2) fL Eosinophils # 0.48 H (0.04-0.35) X 10*3/uL Chloride 95 L (96-109) mmol/L Anion Gap 18.80 H (10.00-18.00) mmol/L BUN 5.7 L (9.0-27.0) mg/dL BUN/Creatinine Ratio 7.13 L (12.00-20.00) Ratio Glucose 395 H (70-110) mg/dL POC Glucose (mg/dL) 377 H (70-110) mg/dL AST 79 H (14-35) U/L ALT 60 H (10-49) U/L Alkaline Phosphatase 197 H (41-126) U/L Albumin 3.7 L (3.8-4.9) g/dL Albumin/Globulin Ratio 1.48 L (1.60-3.17) g/dL 08/04/22 08/04/22 08/05/22 Range/Units 16:35 19:56 05:58 RBC (4.40-5.60) X 10*6/uL Hgb (13.0-17.0) g/dL Hct (39.6-50.0) % MPV (9.5-12.2) fL Eosinophils # (0.04-0.35) X 10*3/uL Chloride (96-109) mmol/L Anion Gap (10.00-18.00) mmol/L BUN (9.0-27.0) mg/dL BUN/Creatinine Ratio (12.00-20.00) Ratio Glucose (70-110) mg/dL POC Glucose (mg/dL) 316 H 315 H 191 H (70-110) mg/dL AST (14-35) U/L ALT (10-49) U/L Alkaline Phosphatase (41-126) U/L Albumin (3.8-4.9) g/dL Albumin/Globulin Ratio (1.60-3.17) g/dL Assessment and Plan Assessment: 1. Hematuria secondary to urinary tract infection 2. Dehydration. Continue IV fluid 3. Fecal impaction. Enema ordered surgical service is consulted 4. Altered mental status changes. Head CT completed 5. Hyperglycemia secondary diabetes mellitus type 2, insulin resumed + scale coverage 6. History of Essential hypertension 8. History of Hyperlipidemia 9. Diabetes mellitus type 2 10. Depression 11. Recurrent falls with tremors probable Parkinson's disease per neurology services patient has been started on Sinemet. Some improvement noted DVT prophylaxis Lovenox. GI prophylaxis Protonix Infectious disease, neurology surgical services following Surgical service is following for fecal impaction Repeat labs ordered in a.m. DC planning inpatient rehab versus [facility]
[2022-08-05 11:41] LABS: Glucose,Whole Blood 139 mg/dL (70-110)
[2022-08-05 16:33] LABS: Glucose,Whole Blood 203 mg/dL (70-110)
--- NOTE | 2022-08-05 17:55 | P.PN ---
Subjective Progress Note Date: 08/05/22 CHIEF COMPLAINT: Fecal impaction HISTORY OF PRESENT ILLNESS: The patient is a 71-year-old male with ileus including fecal impaction. He is tolerating dinner, regular diet. Denies abdominal pain. ROS: No reports of nausea and vomiting. No fevers or chills. No new chest pain. No productive sputum PHYSICAL EXAM: VITAL SIGNS: Reviewed CONSTITUTIONAL: Well developed and in no acute distress. EYES: Conjuctivae without sclera icterus. Extraocular movements grossly intact. HEAD, EARS, NOSE, THROAT: Moist buccal mucosa. Head is atraumatic, normocephalic. Hears conversational speech. No nasal drainage. RESPIRATORY: Non-labored respirations and equal bilateral excursions. CARDIOVASCULAR: Palpable 2+ radial pulses. ABDOMEN: No peritonitis. MUSCULOSKELETAL: No gross deformity of the lower extremities noted. No clubbing. No cyanosis. SKIN: Good skin turgor. Well perfused. NEUROLOGIC: Cranial nerves II through XII grossly intact. No focal or lateralizing signs. PSYCH: Flat affect. Alert and oriented to person, place and time. CLINICAL LABS: Reviewed. Creatinine normal. ASSESSMENT: 1. Fecal impaction with ileus PLAN: 1. He is tolerating regular diet 2. Recommend physical therapy assessment Objective - Vital Signs Vital signs: Vital Signs Temp 98.1 F 08/05/22 14:00 Pulse 90 08/05/22 14:00 Resp 16 08/05/22 14:00 BP 178/81 08/05/22 14:00 Pulse Ox 91 L 08/05/22 14:00 FiO2 Intake & Output 08/04/22 08/05/22 08/05/22 18:59 06:59 18:59 Intake Total 1820 480 Output Total 5 Balance 1815 480 Intake: Intake, IV Titration 1340 Amount Sodium Chloride 0.9% 1, 840 000 ml @ 70 mls/hr IV . [id number] [facility] Rx#:[id number] Vancomycin 1,500 mg In 500 Sodium Chloride 0.9% 500 ml 500 ml @ 167 mls/hr IVPB Q12H [facility] Rx#: [id number] Oral 480 480 Output: Urine 5 Other: Voiding Method Diaper Diaper Diaper # Voids 1 3 3 # Bowel Movements 0 - Labs CBC & Chem 7: 08/04/22 06:07 08/05/22 03:44 Labs: Abnormal Lab Results - Last 24 Hours (Table) 08/04/22 08/05/22 08/05/22 Range/Units 19:56 05:58 11:39 POC Glucose (mg/dL) 315 H 191 H 139 H (70-110) mg/dL 08/05/22 Range/Units 16:32 POC Glucose (mg/dL) 203 H (70-110) mg/dL
[2022-08-05 20:48] LABS: Glucose,Whole Blood 312 mg/dL (70-110)
[2022-08-05] MEDS ORDERED: INSULIN ASPART (NovoLOG) 100 UNIT/ML VIAL SQ ONE (21:27)
[2022-08-05] MEDS: INSULIN DETEMIR (LEVEMIR) 100 UNIT/ML SYR SQ SCH (21:35)
[2022-08-05] MEDS: PRAVASTATIN SODIUM 40 MG TAB PO SCH (21:43)
[2022-08-05] MEDS: SODIUM CHLORIDE 0.9% 1,000 ML IV SCH (21:59)
[2022-08-05] MEDS: LORazepam 1 MG/0.5 ML VIAL IM PRN (22:37)
[2022-08-06] MEDS ORDERED: VANCOMYCIN TROUGH DUE 1 EACH MISC MISCELLANE ONE (05:00)
[2022-08-06 05:56] LABS: Glucose,Whole Blood 58 mg/dL (70-110)
[2022-08-06] MEDS: DEXTROSE 50% SYRINGE 50 ML IVP PRN (06:04)
[2022-08-06 06:31] LABS: Glucose,Whole Blood 118 mg/dL (70-110)
[2022-08-06] MEDS: VANCOMYCIN 1,500 MG in SODIUM CHLORIDE 0.9% 500 ML 500 ML IVPB SCH ×2 (06:32→18:41)
[2022-08-06] MEDS: INSULIN ASPART (NovoLOG) 100 UNIT/ML VIAL SQ SCH ×3 (06:33→18:41)
[2022-08-06] MEDS: SODIUM CHLORIDE 0.9% 1,000 ML IV SCH ×2 (06:38→21:11)
--- NOTE | 2022-08-06 08:45 | P.PN ---
Subjective Progress Note Date: 08/03/22 Principal diagnosis: UTI Patient is a 71-year old male with a past medical history taken for diabetes mellitus hypertension seizure disorder presented to hospital with he maturia weakness patient has been diagnosed with a symptomatic urinary tract infection. On today's evaluation that is 08/03/2022 patient continues to be afebrile the patient is breathing comfortably on room air, the patient is pleasantly confused and not a good historian today no vomiting or diarrhea has been reported by the nursing staff Objective - Vital Signs Vital signs: Vital Signs Temp 97.9 F 08/03/22 07:49 Pulse 85 08/03/22 07:49 Resp 17 08/03/22 07:49 BP 155/69 08/03/22 07:49 Pulse Ox 91 L 08/03/22 07:49 FiO2 Intake & Output 08/02/22 08/03/22 08/03/22 18:59 06:59 18:59 Output Total 1200 Balance -1200 Weight 63.503 kg Output: Urine 1200 Other: Voiding Method Diaper Diaper Diaper # Voids 4 3 3 # Bowel Movements 0 5 1 - Exam GENERAL DESCRIPTION: Elderly male up in the chair, no distress. No tachypnea or accessory muscle of respiration use. LUNGS: Unlabored breathing. Clear to auscultation anteriorly. No wheeze or crackle. HEART: S1, S2, regular rate and rhythm. No loud murmur ABDOMEN: Soft, no tenderness , guarding or rigidity, no organomegaly EXTREMITIES: No edema of feet. - Labs CBC & Chem 7: 08/04/22 06:07 08/05/22 03:44 Labs: Abnormal Lab Results - Last 24 Hours (Table) 08/02/22 08/02/22 08/02/22 Range/Units 05:53 16:41 20:45 RBC (4.40-5.60) X 10*6/uL Hgb (13.0-17.0) g/dL Hct (39.6-50.0) % MPV (9.5-12.2) fL Eosinophils # (0.04-0.35) X 10*3/uL Sodium (137-145) mmol/L Potassium (3.5-5.1) mmol/L BUN (9-20) mg/dL Creatinine (0.66-1.25) mg/dL POC Glucose (mg/dL) 184 H 262 H (70-110) mg/dL Hemoglobin A1c 8.0 H (0.0-6.0) % Calcium (8.4-10.2) mg/dL Alkaline Phosphatase (38-126) U/L Total Protein (6.3-8.2) g/dL Albumin (3.5-5.0) g/dL 08/03/22 08/03/22 08/03/22 Range/Units 01:50 05:42 05:42 RBC 3.53 L (4.40-5.60) X 10*6/uL Hgb 10.5 L (13.0-17.0) g/dL Hct 30.8 L (39.6-50.0) % MPV 9.1 L (9.5-12.2) fL Eosinophils # 0.62 H (0.04-0.35) X 10*3/uL Sodium 135 L (137-145) mmol/L Potassium 3.4 L (3.5-5.1) mmol/L BUN 5 L (9-20) mg/dL Creatinine 0.56 L (0.66-1.25) mg/dL POC Glucose (mg/dL) 215 H (70-110) mg/dL Hemoglobin A1c (0.0-6.0) % Calcium 8.2 L (8.4-10.2) mg/dL Alkaline Phosphatase 168 H (38-126) U/L Total Protein 5.6 L (6.3-8.2) g/dL Albumin 3.2 L (3.5-5.0) g/dL 08/03/22 Range/Units 11:43 RBC (4.40-5.60) X 10*6/uL Hgb (13.0-17.0) g/dL Hct (39.6-50.0) % MPV (9.5-12.2) fL Eosinophils # (0.04-0.35) X 10*3/uL Sodium (137-145) mmol/L Potassium (3.5-5.1) mmol/L BUN (9-20) mg/dL Creatinine (0.66-1.25) mg/dL POC Glucose (mg/dL) 137 H (70-110) mg/dL Hemoglobin A1c (0.0-6.0) % Calcium (8.4-10.2) mg/dL Alkaline Phosphatase (38-126) U/L Total Protein (6.3-8.2) g/dL Albumin (3.5-5.0) g/dL Assessment and Plan (1) UTI (urinary tract infection) Current Visit: No Status: Acute Code(s): N39.0 - URINARY TRACT INFECTION, SITE NOT SPECIFIED SNOMED Code(s): 58865839 Plan: 1patient presented to hospital with generalized weakness did have some difficulty urination apparently some hematuria and flank pain concerning for possible pyelonephritis in this patient who did have elevated white count and a low-grade fever on presentation the hospital ultrasound did not show any evidence of hydronephrosis or renal stone. 2penicillin allergy that would limit the number of antibiotics safe to use. 3the patient has shown clinical improvement, the patient urine has been finalized with Enterococcus that is penicillin sensitive unfortunately patient is penicillin allergic, patient to continue vancomycin and will monitor his clinical course closely Time with Patient: Less than 30
--- NOTE | 2022-08-06 08:47 | P.PN ---
Subjective Progress Note Date: 08/04/22 Principal diagnosis: UTI Patient is a 71-year old male with a past medical history taken for diabetes mellitus hypertension seizure disorder presented to hospital with he maturia weakness patient has been diagnosed with a symptomatic urinary tract infection. On today's evaluation that is 08/04/2022 patient remains to be afebrile the patient is breathing comfortably on room air, the patient is more awake and alert today however did not quite reliable history no vomiting or diarrhea reported by the nursing staff Objective - Vital Signs Vital signs: Vital Signs Temp 98.1 F 08/04/22 08:00 Pulse 100 08/04/22 08:00 Resp 18 08/04/22 08:00 BP 160/79 08/04/22 08:00 Pulse Ox 93 L 08/04/22 08:00 FiO2 Intake & Output 08/03/22 08/04/22 08/04/22 18:59 06:59 18:59 Other: Voiding Method Diaper Diaper Diaper # Voids 2 2 2 # Bowel Movements 1 - Exam GENERAL DESCRIPTION: Elderly male up in the chair, no distress. No tachypnea or accessory muscle of respiration use. LUNGS: Unlabored breathing. Clear to auscultation anteriorly. No wheeze or crackle. HEART: S1, S2, regular rate and rhythm. No loud murmur ABDOMEN: Soft, no tenderness , guarding or rigidity, no organomegaly EXTREMITIES: No edema of feet. - Labs CBC & Chem 7: 08/04/22 06:07 08/05/22 03:44 Labs: Abnormal Lab Results - Last 24 Hours (Table) 08/03/22 08/03/22 08/04/22 Range/Units 16:22 20:42 06:07 RBC 4.17 L (4.40-5.60) X 10*6/uL Hgb 12.3 L (13.0-17.0) g/dL Hct 37.2 L (39.6-50.0) % MPV 9.3 L (9.5-12.2) fL Eosinophils # 0.48 H (0.04-0.35) X 10*3/uL Chloride (96-109) mmol/L Anion Gap (10.00-18.00) mmol/L BUN (9.0-27.0) mg/dL BUN/Creatinine Ratio (12.00-20.00) Ratio Glucose (70-110) mg/dL POC Glucose (mg/dL) 194 H 305 H (70-110) mg/dL AST (14-35) U/L ALT (10-49) U/L Alkaline Phosphatase (41-126) U/L Albumin (3.8-4.9) g/dL Albumin/Globulin Ratio (1.60-3.17) g/dL 08/04/22 08/04/22 08/04/22 Range/Units 06:07 06:28 11:24 RBC (4.40-5.60) X 10*6/uL Hgb (13.0-17.0) g/dL Hct (39.6-50.0) % MPV (9.5-12.2) fL Eosinophils # (0.04-0.35) X 10*3/uL Chloride 95 L (96-109) mmol/L Anion Gap 18.80 H (10.00-18.00) mmol/L BUN 5.7 L (9.0-27.0) mg/dL BUN/Creatinine Ratio 7.13 L (12.00-20.00) Ratio Glucose 395 H (70-110) mg/dL POC Glucose (mg/dL) 379 H 377 H (70-110) mg/dL AST 79 H (14-35) U/L ALT 60 H (10-49) U/L Alkaline Phosphatase 197 H (41-126) U/L Albumin 3.7 L (3.8-4.9) g/dL Albumin/Globulin Ratio 1.48 L (1.60-3.17) g/dL Assessment and Plan (1) UTI (urinary tract infection) Current Visit: No Status: Acute Code(s): N39.0 - URINARY TRACT INFECTION, SITE NOT SPECIFIED SNOMED Code(s): 78798131 Plan: 1patient presented to hospital with generalized weakness did have some difficulty urination apparently some hematuria and flank pain concerning for possible pyelonephritis in this patient who did have elevated white count and a low-grade fever on presentation the hospital ultrasound did not show any evidence of hydronephrosis or renal stone. 2penicillin allergy that would limit the number of antibiotics safe to use. 3the patient urine has been finalized with Enterococcus that is penicillin sensitive unfortunately patient is penicillin allergic 4- patient to continue vancomycin and will monitor his clinical course and kidney function closely Time with Patient: Less than 30
[2022-08-06] MEDS: lisinopriL 5 MG TAB PO SCH (08:48)
[2022-08-06] MEDS: MULTIVITAMINS, THERA 1 EACH TAB PO SCH (08:48)
[2022-08-06] MEDS: FAMOTIDINE 20 MG TAB PO SCH (08:48)
[2022-08-06] MEDS: ENOXAPARIN 40 MG/0.4 ML SYRINGE SQ SCH (08:48)
[2022-08-06] MEDS: CYANOCOBALAMIN 500 MCG TAB PO SCH (08:48)
[2022-08-06] MEDS: LACTULOSE 20 GM/30 ML CUP PO SCH ×2 (08:48→21:11)
[2022-08-06] MEDS: CALCIUM CARBONATE 500 MG CHEWABLE PO SCH (08:48)
[2022-08-06] MEDS: PARoxetine 20 MG TAB PO SCH (08:48)
[2022-08-06] MEDS: lamoTRIgine 100 MG TAB PO SCH ×2 (08:48→21:10)
[2022-08-06] MEDS: PANTOPRAZOLE 40 MG TABLET PO SCH (08:48)
[2022-08-06] MEDS: CARBIDOPA-LEVODOPA 25-100 MG 1 EACH TAB PO SCH ×3 (08:48→21:11)
--- NOTE | 2022-08-06 08:48 | P.PN ---
Subjective Progress Note Date: 08/05/22 Principal diagnosis: UTI Patient is a 71-year old male with a past medical history taken for diabetes mellitus hypertension seizure disorder presented to hospital with he maturia weakness patient has been diagnosed with a symptomatic urinary tract infection. On today's evaluation that is 08/05/2022 patient continues to be afebrile the patient is breathing comfortably on room air, the patient is more awake and alert and mentioned he did have some bowel movements today denies having abdominal pain no nausea no vomiting Objective - Vital Signs Vital signs: Vital Signs Temp 98.2 F 08/06/22 07:34 Pulse 87 08/06/22 07:34 Resp 16 08/06/22 07:34 BP 171/77 08/06/22 07:34 Pulse Ox 95 08/06/22 07:34 FiO2 Intake & Output 08/05/22 08/06/22 08/06/22 18:59 06:59 18:59 Intake Total 480 Balance 480 Intake: Oral 480 Other: Voiding Method Diaper Diaper # Voids 3 2 - Exam GENERAL DESCRIPTION: Elderly male up in the chair, no distress. No tachypnea or accessory muscle of respiration use. LUNGS: Unlabored breathing. Clear to auscultation anteriorly. No wheeze or crackle. HEART: S1, S2, regular rate and rhythm. No loud murmur ABDOMEN: Soft, no tenderness , guarding or rigidity, no organomegaly EXTREMITIES: No edema of feet. - Labs CBC & Chem 7: 08/04/22 06:07 08/05/22 03:44 Labs: Abnormal Lab Results - Last 24 Hours (Table) 08/05/22 08/05/22 08/05/22 Range/Units 11:39 16:32 20:46 POC Glucose (mg/dL) 139 H 203 H 312 H (70-110) mg/dL 08/06/22 08/06/22 Range/Units 05:54 06:28 POC Glucose (mg/dL) 58 L 118 H (70-110) mg/dL Assessment and Plan (1) UTI (urinary tract infection) Current Visit: No Status: Acute Code(s): N39.0 - URINARY TRACT INFECTION, SITE NOT SPECIFIED SNOMED Code(s): 78869687 Plan: 1patient presented to hospital with generalized weakness did have some difficulty urination apparently some hematuria and flank pain concerning for possible pyelonephritis in this patient who did have elevated white count and a low-grade fever on presentation the hospital ultrasound did not show any evidence of hydronephrosis or renal stone. 2penicillin allergy that would limit the number of antibiotics safe to use. 3the patient urine has been finalized with Enterococcus that is penicillin sensitive unfortunately patient is penicillin allergic 4- patient seemed to have shown Some Clinical Improvement and Will continue vancomycin and will monitor his clinical course and kidney function closely Time with Patient: Less than 30
[2022-08-06 10:27] LABS: Basophils # (A) 0.04 X 10*3/uL (0.00-0.10); Basophils % (A) 0.4 %; Eosinophils # (A) 0.51 X 10*3/uL (0.04-0.35); Eosinophils % (A) 5.5 %; HGB 12.8 g/dL (13.0-17.0); Immature Grans, Automated 0.4 %; Lymphocytes % (A) 18.2 %; MCH 29.2 pg (27.0-32.0); MCHC 32.8 g/dL (32.0-37.0); Mean Platelet Volume 8.9 fL (9.5-12.2); Monocytes # (A) 0.77 X 10*3/uL (0.20-1.00); Monocytes % (A) 8.2 %; NRBC Per 100 WBC 0 /100 WBCS (0.0-0.0); Neutrophils # (A) 6.28 X 10*3/uL (1.80-7.70); Neutrophils % (A) 67.3 %; Platelet Count 390 X 10*3/uL (140-440); RBC 4.38 X 10*6/uL (4.40-5.60); RDW 12.3 % (11.5-14.5); WBC 9.34 X 10*3/uL (4.50-10.00)
[2022-08-06 10:47] LABS: African American GFR (CKD) 105.6 (60.0-200.0); Albumin 3.9 g/dL (3.8-4.9); Albumin/Globulin Ratio 1.56 (1.60-3.17); Anion Gap 12.1 mmol/L (10.00-18.00); BUN/Creat Ratio 12.5 Ratio (12.00-20.00); Calcium 9.5 mg/dL (8.7-10.3); Carbon Dioxide 29.9 mmol/L (20.0-27.5); Globulin 2.5 g/dL (1.6-3.3); Non-African American GFR(CKD) 91.1 (60.0-200.0); Potassium 3.9 mmol/L (3.5-5.5); Total Bilirubin 0.3 mg/dL (0.30-1.20); Total Protein 6.4 g/dL (6.2-8.2)
[2022-08-06 11:26] LABS: Glucose,Whole Blood 102 mg/dL (70-110)
--- NOTE | 2022-08-06 13:10 | P.PN ---
Subjective Progress Note Date: 08/06/22 CHIEF COMPLAINT: Fecal impaction HISTORY OF PRESENT ILLNESS: Patient is lying in bed comfortably this morning. Per nursing staff patient continues to have bowel movements. He denies any abdominal pain. Denies any nausea vomiting. He has been tolerating regular diet. They're anticipating discharge to [facility]. Patient seen and examined with Dr. Moore PHYSICAL EXAM: VITAL SIGNS: Reviewed. GENERAL: Well-developed in no acute distress. ABDOMEN:soft. Decrease in abdominal distention. Nontender. ASSESSMENT: 1. Fecal impaction status post flexible sigmoidoscopy with manual disimpaction 2. UTI 3. Ileus PLAN: -Patient can be discharged from surgical standpoint when medically cleared -Continue regular diet -Continue a good bowel regimen after discharge -Continue lactulose -Antibiotics per ID [facility] note has been reviewed by physician. Signing provider agrees with the documented findings, assessment, and plan of care. Objective - Vital Signs Vital signs: Vital Signs Temp 98.2 F 08/06/22 07:34 Pulse 87 08/06/22 07:34 Resp 16 08/06/22 07:34 BP 171/77 08/06/22 07:34 Pulse Ox 95 08/06/22 07:34 FiO2 Intake & Output 08/05/22 08/06/22 08/06/22 18:59 06:59 18:59 Intake Total 480 Balance 480 Intake: Oral 480 Other: Voiding Method Diaper Diaper # Voids 3 2 - Labs CBC & Chem 7: 08/06/22 05:45 08/06/22 05:45 Labs: Abnormal Lab Results - Last 24 Hours (Table) 08/05/22 08/05/22 08/06/22 Range/Units 16:32 20:46 05:45 RBC 4.38 L (4.40-5.60) X 10*6/uL Hgb 12.8 L (13.0-17.0) g/dL Hct 39.0 L (39.6-50.0) % MPV 8.9 L (9.5-12.2) fL Eosinophils # 0.51 H (0.04-0.35) X 10*3/uL Carbon Dioxide (20.0-27.5) mmol/L Glucose (70-110) mg/dL POC Glucose (mg/dL) 203 H 312 H (70-110) mg/dL AST (14-35) U/L ALT (10-49) U/L Alkaline Phosphatase (41-126) U/L Albumin/Globulin Ratio (1.60-3.17) g/dL 08/06/22 08/06/22 08/06/22 Range/Units 05:45 05:54 06:28 RBC (4.40-5.60) X 10*6/uL Hgb (13.0-17.0) g/dL Hct (39.6-50.0) % MPV (9.5-12.2) fL Eosinophils # (0.04-0.35) X 10*3/uL Carbon Dioxide 29.9 H (20.0-27.5) mmol/L Glucose 38 L* (70-110) mg/dL POC Glucose (mg/dL) 58 L 118 H (70-110) mg/dL AST 80 H (14-35) U/L ALT 51 H (10-49) U/L Alkaline Phosphatase 189 H (41-126) U/L Albumin/Globulin Ratio 1.56 L (1.60-3.17) g/dL
[2022-08-06 16:38] LABS: Glucose,Whole Blood 296 mg/dL (70-110)
--- NOTE | 2022-08-06 18:05 | P.PN ---
Subjective Progress Note Date: 08/06/22 This is 71-year-old male patient who presents to the ER with complaints of hematuria starting about 2 days ago. According to ER records patient had difficulty urinating with some right flank pain with a low-grade temperature. Patient has past medical history of diabetes mellitus, high disorder, hyperte nsion, seizure disorder, encephalopathy. CT of abdomen and pelvis completed without contrast showing rectal fecal impaction normal appendix. Chest x-ray completed showing no active cardiopulmonary disease. Inspiration decreased compared to old exam. COVID-19 negative. UA positive for urinary tract infection. White blood cell elevated at 14.2. Vital signs temp 99.8, pulse rate 99, respiratory rate 14, blood pressure 124/70 with a pulse ox 98% room air. Patient has been started on IV antibiotics. Urine blood and sputum cultures ordered. This time patient is resting comfortably in bed. Patient is alert and oriented 2. Patient denies chest pain or shortness breath. Patient denies nausea vomiting or diarrhea. Patient denies any urinary burning or frequency On 07/28/2022 patient was seen and examined on the medical floor he is alert, slightly confused in no apparent distress there is no fever or chills no headache or dizziness no chest pain no shortness of breath no cough no nausea or vomiting no abdominal pain no diarrhea no blood in the stools he has a Stanley catheter in, and urine in the catheter bag is bloody. Patient underwent flexible sigmoidoscopy with manual disimpaction yesterday, he feels significant relief after procedure. Today patient is sitting up in a chair he is alert and trying to answer questions but he seems to be confused, which is a change from his baseline prior to admission, a neurology consultation will be requested in that regard. On 07/29/2022 patient is alert and oriented sitting up in chair. Patient does seem to have some slight confusion. Patient was seen by neurology services awaiting further recommendations. Patient does report improvement since fecal disimpaction patient remains on Rocephin per infectious disease. At this time patient denies chest pain or shortness breath. Patient denies nausea vomiting or diarrhea. Patient denies any urinary burning or frequency. On 07/30/2022 patient was seen and examined on the medical floor he is alert and oriented in no distress, today his is at the bedside. Patient does seem to have some slight confusion, he is still having difficulty finding words. Patient was seen by neurology services, Dr. Yoon advised that patient has Parkinson disease he was started on Sinemet during this admission Patient does report improvement since fecal disimpaction patient remains on Rocephin per infectious disease. At this time patient denies chest pain or shortness breath. Patient denies nausea vomiting or diarrhea. He has Stanely catheter in and urine is less bloody today. On 07/31/2022 patient was seen and examined on the medical floor he is alert and oriented 3 in no apparent distress he is still having difficulty with his speech but is improving gradually he is denying any chest pain shortness of breath or cough he has not had a bowel movement in a couple of days per patient. Case was discussed was Dr. Rei Deluca on neurologist, all his symptoms be related to Parkinson disease, patient is improving gradually since he was started on Sinemet. Patient was started on physical therapy and occupational therapy consultation for Dr. Guzmán was initiated. On 08/01/2022 patient is alert and oriented 3. patient is resting comfortably in bed. Discharge planning to inpatient rehab versus [facility]. Surgical services following for fecal impaction. Neurology services following for new diagnosis of Parkinson's disease patient was started on Sinemet. Infectious d isease following for urinary tract infection and plans to DC the patient on Macrobid. This time patient denies chest pain or shortness breath. Patient denies nausea vomiting or diarrhea. Patient denies any urinary burning or frequency On 08/02/2022 patient was seen and examined on the medical floor he is alert and oriented 3 in no apparent distress, last night he had an episode of agitation a nd confusion he pulled his IV out and he was aggressive towards nurses, he was given 8 doses of IM Ativan and psychiatry consultation was requested. Today patient is much more calm and alert, his is at the bedside, and she was briefed about his progress, patient is still receiving enemas due to severe constipation and stool impaction, he is followed by Dr. Vaughan, he was started this morning on clear liquid diet, he is receiving Sinemet for new diagnosis of Parkinson disease. Physical therapy and occupational therapy are following On 08/03/2022 patient is alert and oriented 3. Abdominal x-ray completed this a.m. showing mildly distended small and large bowel which may reflect ileus correlate clinically. Surgical services are following awaiting further input. At this time patient denies chest pain or shortness of breath. Patient denies nausea vomiting or diarrhea. Patient denies any urinary burning or frequency. On 08/04/2022 patient was seen and examined on the medical floor he is alert and oriented 3 in no apparent distress he is feeling better he is more calm today t here is no fever or chills no headache or dizziness no chest pain no shortness of breath no cough no nausea or vomiting no abdominal pain no diarrhea no blood in the stools no burning with urination no frequency or urgency and no hematuria. Diet is being advanced gradually by surgery patient did not have a bowel movement today physical therapy is ambulating patient possible discharge in the next 2-3 days if improving. On 08/05/2022 patient was seen and examined on the medical floor he is alert responsive in no apparent distress he is still having significant difficulty with his speech otherwise no complaints at this time there is no fever or chills no headache or dizziness no chest pain no shortness of breath no cough no nausea or vomiting no abdominal pain no diarrhea and no urinary symptoms On 08/06/2022 patient was seen and examined on the medical floor he is alert and oriented in no apparent distress he is still having significant difficulty with his speech otherwise no complaints at this time there is no fever or chills no headache or dizziness no chest pain no shortness of breath no cough no nausea or vomiting no abdominal pain no diarrhea and no urinary symptoms. Patient was cleared today by surgery for discharge. Plan is for discharge to retirement when prior authorization is available. Objective - Vital Signs Vital signs: Vital Signs Temp 98.2 F 08/06/22 07:34 Pulse 87 08/06/22 07:34 Resp 16 08/06/22 07:34 BP 171/77 08/06/22 07:34 Pulse Ox 95 08/06/22 07:34 FiO2 Intake & Output 08/05/22 08/06/22 08/06/22 18:59 06:59 18:59 Intake Total 480 Balance 480 Intake: Oral 480 Other: Voiding Method Diaper Diaper # Voids 3 2 - Exam Head normocephalic and atraumatic Neck supple no JVD Lungs clear to auscultation bilaterally no wheezing or crackles Heart regular rate and rhythm S1-S2, no rub or gallop Abdomen is soft nontender nondistended positive bowel sounds no hepatosplenomegaly Extremities no edema Neuro alert slightly confused in no apparent distress - Labs CBC & Chem 7: 08/06/22 05:45 08/06/22 05:45 Labs: Abnormal Lab Results - Last 24 Hours (Table) 08/05/22 08/05/22 08/05/22 Range/Units 11:39 16:32 20:46 POC Glucose (mg/dL) 139 H 203 H 312 H (70-110) mg/dL 08/06/22 08/06/22 Range/Units 05:54 06:28 POC Glucose (mg/dL) 58 L 118 H (70-110) mg/dL Assessment and Plan Assessment: 1. Hematuria secondary to urinary tract infection 2. Dehydration. Continue IV fluid 3. Fecal impaction. Enema ordered surgical service is consulted 4. Altered mental status changes. Head CT completed 5. Hyperglycemia secondary diabetes mellitus type 2, insulin resumed + scale coverage 6. History of Essential hypertension 8. History of Hyperlipidemia 9. Diabetes mellitus type 2 10. Depression 11. Recurrent falls with tremors probable Parkinson's disease per neurology services patient has been started on Sinemet. Some improvement noted. 12. Mild elevation in liver enzymes, at this time will hold Pravachol and continue to monitor closely DVT prophylaxis Lovenox. GI prophylaxis Protonix Infectious disease, neurology surgical services following Surgical service is following for fecal impaction Repeat labs ordered in a.m. DC planning inpatient rehab versus [facility]
[2022-08-06 21:01] LABS: Glucose,Whole Blood 387 mg/dL (70-110)
[2022-08-06] MEDS: INSULIN DETEMIR (LEVEMIR) 100 UNIT/ML SYR SQ SCH (21:11)
[2022-08-07 06:45] LABS: Glucose,Whole Blood 314 mg/dL (70-110)
[2022-08-07] MEDS: VANCOMYCIN 1,500 MG in SODIUM CHLORIDE 0.9% 500 ML 500 ML IVPB SCH ×2 (06:48→17:54)
[2022-08-07] MEDS: PANTOPRAZOLE 40 MG TABLET PO SCH (06:48)
[2022-08-07] MEDS: INSULIN ASPART (NovoLOG) 100 UNIT/ML VIAL SQ SCH ×3 (06:48→17:53)
[2022-08-07 06:49] LABS: ALT 31 U/L (4-49); AST 61 U/L (17-59); African American GFR (CKD) >90 (>60 ml/min/1.73 sqM); Albumin/Globulin Ratio 1.6; Alkaline Phosphatase 187 U/L (38-126); Anion Gap 16 mmol/L; Blood Urea Nitrogen 12 mg/dL (9-20); Calcium 8.8 mg/dL (8.4-10.2); Carbon Dioxide 18 mmol/L (22-30); Chloride 105 mmol/L (98-107); Globulin 2.5 g/dL; Glucose 358 mg/dL (74-99); Non-African American GFR(CKD) >90 (>60 ml/min/1.73 sqM); Potassium 4.9 mmol/L (3.5-5.1); Sodium 139 mmol/L (137-145); Total Bilirubin 0.5 mg/dL (0.2-1.3); Total Protein 6.5 g/dL (6.3-8.2)
[2022-08-07] MEDS: CALCIUM CARBONATE 500 MG CHEWABLE PO SCH (09:09)
[2022-08-07] MEDS: ENOXAPARIN 40 MG/0.4 ML SYRINGE SQ SCH (09:10)
[2022-08-07] MEDS: CYANOCOBALAMIN 500 MCG TAB PO SCH (09:10)
[2022-08-07] MEDS: MULTIVITAMINS, THERA 1 EACH TAB PO SCH (09:10)
[2022-08-07] MEDS: FAMOTIDINE 20 MG TAB PO SCH (09:10)
[2022-08-07] MEDS: lamoTRIgine 100 MG TAB PO SCH ×2 (09:10→21:35)
[2022-08-07] MEDS: CARBIDOPA-LEVODOPA 25-100 MG 1 EACH TAB PO SCH ×3 (09:10→21:35)
[2022-08-07] MEDS: PARoxetine 20 MG TAB PO SCH (09:11)
[2022-08-07] MEDS: lisinopriL 5 MG TAB PO SCH (09:11)
[2022-08-07] MEDS: LACTULOSE 20 GM/30 ML CUP PO SCH ×2 (09:18→20:38)
[2022-08-07 09:27] LABS: Basophils # (A) 0.03 X 10*3/uL (0.00-0.10); Basophils % (A) 0.3 %; Eosinophils # (A) 0.12 X 10*3/uL (0.04-0.35); Eosinophils % (A) 1.4 %; HCT 40.8 % (39.6-50.0); HGB 13.2 g/dL (13.0-17.0); Immature Grans, Automated 0.6 %; Lymphocytes # (A) 1.15 X 10*3/uL (0.90-5.00); MCHC 32.4 g/dL (32.0-37.0); MCV 89.7 fL (80.0-97.0); Mean Platelet Volume 9.3 fL (9.5-12.2); Monocytes # (A) 0.64 X 10*3/uL (0.20-1.00); Monocytes % (A) 7.3 %; NRBC Per 100 WBC 0 /100 WBCS (0.0-0.0); Neutrophils # (A) 6.83 X 10*3/uL (1.80-7.70); Neutrophils % (A) 77.4 %; Platelet Count 396 X 10*3/uL (140-440); RBC 4.55 X 10*6/uL (4.40-5.60); RDW 12.6 % (11.5-14.5); WBC 8.82 X 10*3/uL (4.50-10.00)
[2022-08-07] MEDS: SODIUM CHLORIDE 0.9% 1,000 ML IV SCH (10:24)
--- NOTE | 2022-08-07 11:26 | P.PN ---
Subjective Progress Note Date: 08/07/22 CHIEF COMPLAINT: Fecal impaction HISTORY OF PRESENT ILLNESS: Patient is sitting up in bed comfortably this morning. Patient's last bowel movement was on Saturday. Per nursing no bowel movement yesterday. Patient has had no nausea or vomiting. He denies any abdominal pain. He eats a small amount of his meals. Patient refused lactulose. They're working on discharge to [facility]. Patient seen and examined with Dr. Moore PHYSICAL EXAM: VITAL SIGNS: Reviewed. GENERAL: Well-developed in no acute distress. ABDOMEN:soft. Decrease in abdominal distention. Nontender. ASSESSMENT: 1. Fecal impaction status post flexible sigmoidoscopy with manual disimpaction 2. UTI 3. Ileus PLAN: -Patient can be discharged from surgical standpoint when medically cleared -Continue regular diet -Continue a good bowel regimen after discharge -Continue lactulose -Add MiraLAX -Antibiotics per ID Physician Field Marketing Director note has been reviewed by physician. Signing provider agrees with the documented findings, assessment, and plan of care. Objective - Vital Signs Vital signs: Vital Signs Temp 98.5 F 08/07/22 08:00 Pulse 98 08/07/22 08:00 Resp 17 08/07/22 08:00 BP 149/72 08/07/22 08:00 Pulse Ox 93 L 08/07/22 08:00 FiO2 Intake & Output 08/06/22 08/07/22 08/07/22 18:59 06:59 18:59 Intake Total 480 Balance 480 Weight 63.503 kg Intake: Oral 480 Other: Voiding Method Diaper Diaper Diaper # Voids 3 - Labs CBC & Chem 7: 08/07/22 05:47 08/07/22 05:47 Labs: Abnormal Lab Results - Last 24 Hours (Table) 08/06/22 08/06/22 08/06/22 Range/Units 05:45 16:35 21:00 MPV (9.5-12.2) fL Immature Gran # (0.00-0.04) X 10*3/uL Carbon Dioxide (22-30) mmol/L Glucose 38 L* (70-110) mg/dL POC Glucose (mg/dL) 296 H 387 H (70-110) mg/dL AST (17-59) U/L Alkaline Phosphatase (38-126) U/L 08/07/22 08/07/2222 Range/Units 05:47 05:47 06:42 MPV 9.3 L (9.5-12.2) fL Immature Gran # 0.05 H (0.00-0.04) X 10*3/uL Carbon Dioxide 18 L (22-30) mmol/L Glucose 358 H (70-110) mg/dL POC Glucose (mg/dL) 314 H (70-110) mg/dL AST 61 H (17-59) U/L Alkaline Phosphatase 187 H (38-126) U/L
[2022-08-07 11:36] LABS: Glucose,Whole Blood 291 mg/dL (70-110)
[2022-08-07] MEDS: polyethylene glycoL 3350 17 GM POWD.PACK PO SCH (12:36)
[2022-08-07 16:16] LABS: Glucose,Whole Blood 284 mg/dL (70-110)
--- NOTE | 2022-08-07 17:53 | P.PN ---
Subjective Progress Note Date: 08/07/22 This is 71-year-old male patient who presents to the ER with complaints of hematuria starting about 2 days ago. According to ER records patient had difficulty urinating with some right flank pain with a low-grade temperature. Patient has past medical history of diabetes mellitus, high disorder, hyperte nsion, seizure disorder, encephalopathy. CT of abdomen and pelvis completed without contrast showing rectal fecal impaction normal appendix. Chest x-ray completed showing no active cardiopulmonary disease. Inspiration decreased compared to old exam. COVID-19 negative. UA positive for urinary tract infection. White blood cell elevated at 14.2. Vital signs temp 99.8, pulse rate 99, respiratory rate 14, blood pressure 124/70 with a pulse ox 98% room air. Patient has been started on IV antibiotics. Urine blood and sputum cultures ordered. This time patient is resting comfortably in bed. Patient is alert and oriented 2. Patient denies chest pain or shortness breath. Patient denies nausea vomiting or diarrhea. Patient denies any urinary burning or frequency On 07/28/2022 patient was seen and examined on the medical floor he is alert, slightly confused in no apparent distress there is no fever or chills no headache or dizziness no chest pain no shortness of breath no cough no nausea or vomiting no abdominal pain no diarrhea no blood in the stools he has a Stanley catheter in, and urine in the catheter bag is bloody. Patient underwent flexible sigmoidoscopy with manual disimpaction yesterday, he feels significant relief after procedure. Today patient is sitting up in a chair he is alert and trying to answer questions but he seems to be confused, which is a change from his baseline prior to admission, a neurology consultation will be requested in that regard. On 07/29/2022 patient is alert and oriented sitting up in chair. Patient does seem to have some slight confusion. Patient was seen by neurology services awaiting further recommendations. Patient does report improvement since fecal disimpaction patient remains on Rocephin per infectious disease. At this time patient denies chest pain or shortness breath. Patient denies nausea vomiting or diarrhea. Patient denies any urinary burning or frequency. On 07/30/2022 patient was seen and examined on the medical floor he is alert and oriented in no distress, today his is at the bedside. Patient does seem to have some slight confusion, he is still having difficulty finding words. Patient was seen by neurology services, Dr. Yoon advised that patient has Parkinson disease he was started on Sinemet during this admission Patient does report improvement since fecal disimpaction patient remains on Rocephin per infectious disease. At this time patient denies chest pain or shortness breath. Patient denies nausea vomiting or diarrhea. He has Stanley catheter in and urine is less bloody today. On 07/31/2022 patient was seen and examined on the medical floor he is alert and oriented 3 in no apparent distress he is still having difficulty with his speech but is improving gradually he is denying any chest pain shortness of breath or cough he has not had a bowel movement in a couple of days per patient. Case was discussed was Dr. Rei Deluca on neurologist, all his symptoms be related to Parkinson disease, patient is improving gradually since he was started on Sinemet. Patient was started on physical therapy and occupational therapy consultation for Dr. Guzmán was initiated. On 08/01/2022 patient is alert and oriented 3. patient is resting comfortably in bed. Discharge planning to inpatient rehab versus [facility]. Surgical services following for fecal impaction. Neurology services following for new diagnosis of Parkinson's disease patient was started on Sinemet. Infectious d isease following for urinary tract infection and plans to DC the patient on Macrobid. This time patient denies chest pain or shortness breath. Patient denies nausea vomiting or diarrhea. Patient denies any urinary burning or frequency On 08/02/2022 patient was seen and examined on the medical floor he is alert and oriented 3 in no apparent distress, last night he had an episode of agitation a nd confusion he pulled his IV out and he was aggressive towards nurses, he was given 8 doses of IM Ativan and psychiatry consultation was requested. Today patient is much more calm and alert, his is at the bedside, and she was briefed about his progress, patient is still receiving enemas due to severe constipation and stool impaction, he is followed by Dr. Vaughan, he was started this morning on clear liquid diet, he is receiving Sinemet for new diagnosis of Parkinson disease. Physical therapy and occupational therapy are following On 08/03/2022 patient is alert and oriented 3. Abdominal x-ray completed this a.m. showing mildly distended small and large bowel which may reflect ileus correlate clinically. Surgical services are following awaiting further input. At this time patient denies chest pain or shortness of breath. Patient denies nausea vomiting or diarrhea. Patient denies any urinary burning or frequency. On 08/04/2022 patient was seen and examined on the medical floor he is alert and oriented 3 in no apparent distress he is feeling better he is more calm today t here is no fever or chills no headache or dizziness no chest pain no shortness of breath no cough no nausea or vomiting no abdominal pain no diarrhea no blood in the stools no burning with urination no frequency or urgency and no hematuria. Diet is being advanced gradually by surgery patient did not have a bowel movement today physical therapy is ambulating patient possible discharge in the next 2-3 days if improving. On 08/05/2022 patient was seen and examined on the medical floor he is alert responsive in no apparent distress he is still having significant difficulty with his speech otherwise no complaints at this time there is no fever or chills no headache or dizziness no chest pain no shortness of breath no cough no nausea or vomiting no abdominal pain no diarrhea and no urinary symptoms On 08/06/2022 patient was seen and examined on the medical floor he is alert and oriented in no apparent distress he is still having significant difficulty with his speech otherwise no complaints at this time there is no fever or chills no headache or dizziness no chest pain no shortness of breath no cough no nausea or vomiting no abdominal pain no diarrhea and no urinary symptoms. Patient was cleared today by surgery for discharge. Plan is for discharge to longterm when prior authorization is available. Objective - Vital Signs Vital signs: Vital Signs Temp 97.5 F L 08/07/22 14:00 Pulse 99 08/07/22 14:00 Resp 18 08/07/22 14:00 BP 151/70 08/07/22 14:00 Pulse Ox 95 08/07/22 14:00 FiO2 Intake & Output 08/06/22 08/07/22 08/07/22 18:59 06:59 18:59 Intake Total 480 Output Total 400 Balance 480 -400 Weight 63.503 kg Intake: Oral 480 Output: Urine 400 Other: Voiding Method Diaper Diaper Diaper # Voids 3 5 - Exam Head normocephalic and atraumatic Neck supple no JVD Lungs clear to auscultation bilaterally no wheezing or crackles Heart regular rate and rhythm S1-S2, no rub or gallop Abdomen is soft nontender nondistended positive bowel sounds no hepatosplenomegaly Extremities no edema Neuro alert slightly confused in no apparent distress - Labs CBC & Chem 7: 08/07/22 05:47 08/07/22 05:47 Labs: Abnormal Lab Results - Last 24 Hours (Table) 08/06/22 08/06/22 08/07/22 Range/Units 05:45 21:00 05:47 MPV (9.5-12.2) fL Immature Gran # (0.00-0.04) X 10*3/uL Carbon Dioxide 18 L (22-30) mmol/L Glucose 38 L* 358 H (70-110) mg/dL POC Glucose (mg/dL) 387 H (70-110) mg/dL AST 61 H (17-59) U/L Alkaline Phosphatase 187 H (38-126) U/L 08/07/22 08/07/22 08/07/22 Range/Units 05:47 06:42 11:35 MPV 9.3 L (9.5-12.2) fL Immature Gran # 0.05 H (0.00-0.04) X 10*3/uL Carbon Dioxide (22-30) mmol/L Glucose (70-110) mg/dL POC Glucose (mg/dL) 314 H 291 H (70-110) mg/dL AST (17-59) U/L Alkaline Phosphatase (38-126) U/L 08/07/22 Range/Units 16:15 MPV (9.5-12.2) fL Immature Gran # (0.00-0.04) X 10*3/uL Carbon Dioxide (22-30) mmol/L Glucose (70-110) mg/dL POC Glucose (mg/dL) 284 H (70-110) mg/dL AST (17-59) U/L Alkaline Phosphatase (38-126) U/L Assessment and Plan Assessment: 1. Hematuria secondary to urinary tract infection 2. Dehydration. Improved with IV fluid 3. Fecal impaction. Enema ordered surgical service is consulted 4. Altered mental status changes. Head CT completed 5. Hyperglycemia secondary diabetes mellitus type 2, insulin resumed + scale coverage 6. History of Essential hypertension 8. History of Hyperlipidemia 9. Diabetes mellitus type 2 10. Depression 11. Recurrent falls with tremors probable Parkinson's disease per neurology services patient has been started on Sinemet. Some improvement noted. 12. Mild elevation in liver enzymes, at this time will hold Pravachol and continue to monitor closely DVT prophylaxis Lovenox. GI prophylaxis Protonix Infectious disease, neurology surgical services following Surgical service is following for fecal impaction Repeat labs ordered in a.m. DC planning transfer to [facility] when prior authorization is available
[2022-08-07 19:54] LABS: Glucose,Whole Blood 295 mg/dL (70-110)
[2022-08-07] MEDS: INSULIN DETEMIR (LEVEMIR) 100 UNIT/ML SYR SQ SCH (21:36)
--- NOTE | 2022-08-07 23:44 | P.PN ---
Subjective Progress Note Date: 08/06/22 Principal diagnosis: UTI Patient is a 71-year old male with a past medical history taken for diabetes mellitus hypertension seizure disorder presented to hospital with he maturia weakness patient has been diagnosed with a symptomatic urinary tract infection. On today's evaluation that is 08/06/2022 patient remains to be afebrile the patient is breathing comfortably on room air, the patient denies any chest pain shortness of breath or cough no abdominal pain or diarrhea Objective - Vital Signs Vital signs: Vital Signs Temp 98.2 F 08/06/22 07:34 Pulse 87 08/06/22 07:34 Resp 16 08/06/22 07:34 BP 171/77 08/06/22 07:34 Pulse Ox 95 08/06/22 07:34 FiO2 Intake & Output 08/05/22 08/06/22 08/06/22 18:59 06:59 18:59 Intake Total 480 Balance 480 Weight 63.503 kg Intake: Oral 480 Other: Voiding Method Diaper Diaper Diaper # Voids 3 2 - Exam GENERAL DESCRIPTION: Elderly male up in the chair, no distress. No tachypnea or accessory muscle of respiration use. LUNGS: Unlabored breathing. Clear to auscultation anteriorly. No wheeze or crackle. HEART: S1, S2, regular rate and rhythm. No loud murmur ABDOMEN: Soft, no tenderness , guarding or rigidity, no organomegaly EXTREMITIES: No edema of feet. - Labs CBC & Chem 7: 08/07/22 05:47 08/07/22 05:47 Labs: Abnormal Lab Results - Last 24 Hours (Table) 08/05/22 08/05/22 08/06/22 Range/Units 16:32 20:46 05:45 RBC 4.38 L (4.40-5.60) X 10*6/uL Hgb 12.8 L (13.0-17.0) g/dL Hct 39.0 L (39.6-50.0) % MPV 8.9 L (9.5-12.2) fL Eosinophils # 0.51 H (0.04-0.35) X 10*3/uL Carbon Dioxide (20.0-27.5) mmol/L Glucose (70-110) mg/dL POC Glucose (mg/dL) 203 H 312 H (70-110) mg/dL AST (14-35) U/L ALT (10-49) U/L Alkaline Phosphatase (41-126) U/L Albumin/Globulin Ratio (1.60-3.17) g/dL 08/06/22 08/06/22 08/06/22 Range/Units 05:45 05:54 06:28 RBC (4.40-5.60) X 10*6/uL Hgb (13.0-17.0) g/dL Hct (39.6-50.0) % MPV (9.5-12.2) fL Eosinophils # (0.04-0.35) X 10*3/uL Carbon Dioxide 29.9 H (20.0-27.5) mmol/L Glucose 38 L* (70-110) mg/dL POC Glucose (mg/dL) 58 L 118 H (70-110) mg/dL AST 80 H (14-35) U/L ALT 51 H (10-49) U/L Alkaline Phosphatase 189 H (41-126) U/L Albumin/Globulin Ratio 1.56 L (1.60-3.17) g/dL Assessment and Plan (1) UTI (urinary tract infection) Current Visit: No Status: Acute Code(s): N39.0 - URINARY TRACT INFECTION, SITE NOT SPECIFIED SNOMED Code(s): 63369284 Plan: 1patient presented to hospital with generalized weakness did have some difficulty urination apparently some hematuria and flank pain concerning for possible pyelonephritis in this patient who did have elevated white count and a low-grade fever on presentation the hospital ultrasound did not show any evidence of hydronephrosis or renal stone. 2penicillin allergy that would limit the number of antibiotics safe to use. 3the patient urine has been finalized with Enterococcus that is penicillin sensitive unfortunately patient is penicillin allergic 4- patient has shown Clinical Improvement and Will continue vancomycin and monitor his clinical course closely Time with Patient: Less than 30
--- NOTE | 2022-08-07 23:45 | P.PN ---
Subjective Progress Note Date: 08/07/22 Principal diagnosis: UTI Patient is a 71-year old male with a past medical history significant for diabetes mellitus hypertension seizure disorder presented to hospital with hematuria weakness patient has been diagnosed with a symptomatic urinary tract infection. On today's evaluation that is 08/07/2022 patient continues to be afebrile the patient is breathing comfortably on room air, the patient denies any chest pain shortness of breath or cough no abdominal pain or diarrhea, no new symptoms overall feeling better Objective - Vital Signs Vital signs: Vital Signs Temp 98.4 F 08/07/22 19:30 Pulse 101 H 08/07/22 19:30 Resp 17 08/07/22 19:30 BP 179/75 08/07/22 19:30 Pulse Ox 93 L 08/07/22 19:30 FiO2 Intake & Output 08/07/22 08/07/22 08/08/22 06:59 18:59 06:59 Output Total 400 Balance -400 Output: Urine 400 Other: Voiding Method Diaper Diaper Diaper # Voids 5 - Exam GENERAL DESCRIPTION: Elderly male up in the chair, no distress. No tachypnea or accessory muscle of respiration use. LUNGS: Unlabored breathing. Clear to auscultation anteriorly. No wheeze or crackle. HEART: S1, S2, regular rate and rhythm. No loud murmur ABDOMEN: Soft, no tenderness , guarding or rigidity, no organomegaly EXTREMITIES: No edema of feet. - Labs CBC & Chem 7: 08/07/22 05:47 08/07/22 05:47 Labs: Abnormal Lab Results - Last 24 Hours (Table) 08/06/22 08/07/22 08/07/22 Range/Units 05:45 05:47 05:47 MPV 9.3 L (9.5-12.2) fL Immature Gran # 0.05 H (0.00-0.04) X 10*3/uL Carbon Dioxide 18 L (22-30) mmol/L Glucose 38 L* 358 H (70-110) mg/dL POC Glucose (mg/dL) (70-110) mg/dL AST 61 H (17-59) U/L Alkaline Phosphatase 187 H (38-126) U/L 08/07/22 08/07/22 08/07/22 Range/Units 06:42 11:35 16:15 MPV (9.5-12.2) fL Immature Gran # (0.00-0.04) X 10*3/uL Carbon Dioxide (22-30) mmol/L Glucose (70-110) mg/dL POC Glucose (mg/dL) 314 H 291 H 284 H (70-110) mg/dL AST (17-59) U/L Alkaline Phosphatase (38-126) U/L 08/07/ Range/Units 19:52 MPV (9.5-12.2) fL Immature Gran # (0.00-0.04) X 10*3/uL Carbon Dioxide (22-30) mmol/L Glucose (70-110) mg/dL POC Glucose (mg/dL) 295 H (70-110) mg/dL AST (17-59) U/L Alkaline Phosphatase (38-126) U/L Assessment and Plan (1) UTI (urinary tract infection) Current Visit: No Status: Acute Code(s): N39.0 - URINARY TRACT INFECTION, SI TE NOT SPECIFIED SNOMED Code(s): 44350226 Plan: 1patient presented to hospital with generalized weakness did have some difficulty urination apparently some hematuria and flank pain concerning for possible pyelonephritis in this patient who did have elevated white count and a low-grade fever on presentation the hospital ultrasound did not show any evidence of hydronephrosis or renal stone. 2penicillin allergy that would limit the number of antibiotics safe to use. 3the patient urine has been finalized with Enterococcus that is penicillin sensitive unfortunately patient is penicillin allergic 4- patient has shown Clinical Improvement and Has Received Adequate Antibiotic Therapy for His UTI with Repeat Urine Culture Negative, Will Discontinue the Vancomycin and Monitor the Patient Closely off Antibiotic Time with Patient: Less than 30
[2022-08-08] MEDS: SODIUM CHLORIDE 0.9% 1,000 ML IV SCH (02:36)
[2022-08-08 06:31] LABS: Glucose,Whole Blood 209 mg/dL (70-110)
[2022-08-08] MEDS: INSULIN ASPART (NovoLOG) 100 UNIT/ML VIAL SQ SCH ×2 (06:42→12:33)
[2022-08-08] MEDS: PANTOPRAZOLE 40 MG TABLET PO SCH (06:42)
[2022-08-08 07:13] LABS: ALT 17 U/L (4-49); AST 37 U/L (17-59); African American GFR (CKD) >90 (>60 ml/min/1.73 sqM); Albumin 3.6 g/dL (3.5-5.0); Albumin/Globulin Ratio 1.5; Alkaline Phosphatase 158 U/L (38-126); Anion Gap 6 mmol/L; Blood Urea Nitrogen 13 mg/dL (9-20); Calcium 8.9 mg/dL (8.4-10.2); Carbon Dioxide 27 mmol/L (22-30); Chloride 104 mmol/L (98-107); Globulin 2.4 g/dL; Glucose 227 mg/dL (74-99); Non-African American GFR(CKD) >90 (>60 ml/min/1.73 sqM); Potassium 4.1 mmol/L (3.5-5.1); Sodium 137 mmol/L (137-145); Total Bilirubin 0.5 mg/dL (0.2-1.3)
[2022-08-08] MEDS: CYANOCOBALAMIN 500 MCG TAB PO SCH (08:05)
[2022-08-08] MEDS: CALCIUM CARBONATE 500 MG CHEWABLE PO SCH (08:05)
[2022-08-08] MEDS: polyethylene glycoL 3350 17 GM POWD.PACK PO SCH (08:05)
[2022-08-08] MEDS: LACTULOSE 20 GM/30 ML CUP PO SCH (08:05)
[2022-08-08] MEDS: lamoTRIgine 100 MG TAB PO SCH (08:05)
[2022-08-08] MEDS: PARoxetine 20 MG TAB PO SCH (08:06)
[2022-08-08] MEDS: FAMOTIDINE 20 MG TAB PO SCH (08:06)
[2022-08-08] MEDS: MULTIVITAMINS, THERA 1 EACH TAB PO SCH (08:06)
[2022-08-08] MEDS: lisinopriL 5 MG TAB PO SCH (08:06)
[2022-08-08] MEDS: ENOXAPARIN 40 MG/0.4 ML SYRINGE SQ SCH (08:06)
[2022-08-08] MEDS: CARBIDOPA-LEVODOPA 25-100 MG 1 EACH TAB PO SCH (08:15)
--- NOTE | 2022-08-08 10:59 | P.PN ---
Subjective Progress Note Date: 08/08/22 CHIEF COMPLAINT: Fecal impaction HISTORY OF PRESENT ILLNESS: Patient is sitting up in bed comfortably this morning. Patient's last bowel movement was on Saturday. Per nursing no bowel movement yesterday. He is having flatus. Patient has had no nausea or vomiting. He denies any abdominal pain. He eats a small amount of his meals. Patient is being discharged today to [facility] Patient seen and examined with Dr. Moore PHYSICAL EXAM: VITAL SIGNS: Reviewed. GENERAL: Well-developed in no acute distress. ABDOMEN:soft. Nondistended Nontender. ASSESSMENT: 1. Fecal impaction status post flexible sigmoidoscopy with manual disimpaction 2. UTI 3. Ileus resolved PLAN: -Patient can be discharged from surgical standpoint when medically cleared -Continue regular diet -Continue a good bowel regimen after discharge -Antibiotics per ID Physician Optometrist/Practice Owner note has been reviewed by physician. Signing provider agrees with the documented findings, assessment, and plan of care. Objective - Vital Signs Vital signs: Vital Signs Temp 97.0 F L 08/08/22 08:00 Pulse 86 08/08/22 08:00 Resp 17 08/08/22 08:00 BP 148/63 08/08/22 08:00 Pulse Ox 98 08/08/22 08:00 FiO2 Intake & Output 08/07/22 08/08/22 08/08/22 18:59 06:59 18:59 Output Total 400 300 Balance -400 -300 Output: Urine 400 300 Other: Voiding Method Diaper Diaper # Voids 5 - Labs CBC & Chem 7: 08/07/22 05:47 08/08/22 05:41 Labs: Abnormal Lab Results - Last 24 Hours (Table) 08/07/22 08/07/22 08/07/22 Range/Units 11:35 16:15 19:52 Creatinine (0.66-1.25) mg/dL Glucose (74-99) mg/dL POC Glucose (mg/dL) 291 H 284 H 295 H (70-110) mg/dL Alkaline Phosphatase (38-126) U/L Total Protein (6.3-8.2) g/dL 08/08/22 08/08/22 Range/Units 05:41 06:30 Creatinine 0.64 L (0.66-1.25) mg/dL Glucose 227 H (74-99) mg/dL POC Glucose (mg/dL) 209 H (70-110) mg/dL Alkaline Phosphatase 158 H (38-126) U/L Total Protein 6.0 L (6.3-8.2) g/dL
[2022-08-08 11:28] LABS: Basophils # (A) 0.04 X 10*3/uL (0.00-0.10); Basophils % (A) 0.4 %; Eosinophils # (A) 0.32 X 10*3/uL (0.04-0.35); Eosinophils % (A) 3.3 %; HCT 36.3 % (39.6-50.0); HGB 12.1 g/dL (13.0-17.0); Immature Grans, Automated 0.6 %; Lymphocytes # (A) 1.45 X 10*3/uL (0.90-5.00); Lymphocytes % (A) 15.1 %; MCH 29.7 pg (27.0-32.0); MCHC 33.3 g/dL (32.0-37.0); MCV 89.2 fL (80.0-97.0); Mean Platelet Volume 9.5 fL (9.5-12.2); Monocytes # (A) 0.62 X 10*3/uL (0.20-1.00); Monocytes % (A) 6.5 %; NRBC Per 100 WBC 0 /100 WBCS (0.0-0.0); Neutrophils % (A) 74.1 %; Platelet Count 309 X 10*3/uL (140-440); RBC 4.07 X 10*6/uL (4.40-5.60); RDW 12.5 % (11.5-14.5); WBC 9.59 X 10*3/uL (4.50-10.00)
[2022-08-08 11:53] LABS: Glucose,Whole Blood 240 mg/dL (70-110)
--- NOTE | 2022-08-08 12:16 | P.DS ---
Providers Date of admission: 07/26/22 20:46 Expected date of discharge: 08/08/22 Attending physician: Shelley Simons Consults: 07/27/22 10:12 Consult Physician Routine Consulting Provider: Azra Nguyen Consult Reason/Comments: UTI Do you want consulting provider notified?: Yes 07/27/22 10:20 Consult Physician Routine Consulting Provider: Otilio Vaughan Consult Reason/Comments: fecal impaction Do you want consulting provider notified?: Yes 07/28/22 12:21 Consult Physician Routine Consulting Provider: Rei Yoon Consult Reason/Comments: mental status changes Do you want consulting provider notified?: Yes 07/30/22 14:13 Consult Physician Routine Consulting Provider: Corby Guzmán Consult Reason/Comments: possible rehab admission Do you want consulting provider notified?: Yes 08/01/22 20:05 Consult Physician Routine Consulting Provider: Anatoliy Solorzano Consult Reason/Comments: delerium Do you want consulting provider notified?: Yes, Notify in am Primary care physician: [facility] Course: Diagnosis on discharge: 1. Hematuria secondary to urinary tract infection 2. Dehydration. Improved with IV fluid 3. Fecal impaction. Enema ordered surgical service is consulted 4. Altered mental status changes. Head CT completed 5. Hyperglycemia secondary diabetes mellitus type 2, insulin resumed + scale coverage 6. History of Essential hypertension 8. History of Hyperlipidemia 9. Diabetes mellitus type 2 10. Depression 11. Recurrent falls with tremors probable Parkinson's disease per neurology services patient has been started on Sinemet. Some improvement noted. 12. Mild elevation in liver enzymes, at this time will hold Pravachol and continue to monitor closely Hospital course: This is 71-year-old male patient who presents to the ER with complaints of hematuria starting about 2 days ago. According to ER records patient had difficulty urinating with some right flank pain with a low-grade temperature. Patient has past medical history of diabetes mellitus, high disorder, hypertension, seizure disorder, encephalopathy. CT of abdomen and pelvis co mpleted without contrast showing rectal fecal impaction normal appendix. Chest x-ray completed showing no active cardiopulmonary disease. Inspiration decreased compared to old exam. COVID-19 negative. UA positive for urinary tract infection. White blood cell elevated at 14.2. Vital signs temp 99.8, pulse rate 99, respiratory rate 14, blood pressure 124/70 with a pulse ox 98% room air. Patient has been started on IV antibiotics. Urine blood and sputum cultures ordered. This time patient is resting comfortably in bed. Patient is alert and oriented 2. Patient denies chest pain or shortness breath. Patient denies nausea vomiting or diarrhea. Patient denies any urinary burning or frequency On 07/28/2022 patient was seen and examined on the medical floor he is alert, slightly confused in no apparent distress there is no fever or chills no headache or dizziness no chest pain no shortness of breath no cough no nausea or vomiting no abdominal pain no diarrhea no blood in the stools he has a Stanley catheter in, and urine in the catheter bag is bloody. Patient underwent flexible sigmoidoscopy with manual disimpaction yesterday, he feels significant relief after procedure. Today patient is sitting up in a chair he is alert and trying to answer questions but he seems to be confused, which is a change from his baseline prior to admission, a neurology consultation will be requested in that regard. On 07/29/2022 patient is alert and oriented sitting up in chair. Patient does seem to have some slight confusion. Patient was seen by neurology services awaiting further recommendations. Patient does report improvement since fecal disimpaction patient remains on Rocephin per infectious disease. At this time patient denies chest pain or shortness breath. Patient denies nausea vomiting or diarrhea. Patient denies any urinary burning or frequency. On 07/30/2022 patient was seen and examined on the medical floor he is alert and oriented in no distress, today his is at the bedside. Patient does seem to have some slight confusion, he is still having difficulty finding words. Patient was seen by neurology services, Dr. Yoon advised that patient has Parkinson disease he was started on Sinemet during this admission Patient does report improvement since fecal disimpaction patient remains on Rocephin per infectious disease. At this time patient denies chest pain or shortness breath. Patient denies nausea vomiting or diarrhea. He has Stanley catheter in and urine is less bloody today. On 07/31/2022 patient was seen and examined on the medical floor he is alert and oriented 3 in no apparent distress he is still having difficulty with his speech but is improving gradually he is denying any chest pain shortness of breath or cough he has not had a bowel movement in a couple of days per patient. Case was discussed was Dr. Rei Deluca on neurologist, all his symptoms be related to Parkinson disease, patient is improving gradually since he was started on Sinemet. Patient was started on physical therapy and occupational therapy consultation for Dr. Guzmán was initiated. On 08/01/2022 patient is alert and oriented 3. patient is resting comfortably in bed. Discharge planning to inpatient rehab versus [facility]. Surgical services following for fecal impaction. Neurology services following for new diagnosis of Parkinson's disease patient was started on Sinemet. Infectious disease following for urinary tract infection and plans to DC the patient on Macrobid. This time patient denies chest pain or shortness breath. Patient denies nausea vomiting or diarrhea. Patient denies any urinary burning or frequency On 08/02/2022 patient was seen and examined on the medical floor he is alert and oriented 3 in no apparent distress, last night he had an episode of agitation and confusion he pulled his IV out and he was aggressive towards nurses, he was given 8 doses of IM Ativan and psychiatry consultation was requested. Today patient is much more calm and alert, his is at the bedside, and she was briefed about his progress, patient is still receiving enemas due to severe constipation and stool impaction, he is followed by Dr. Vaughan, he was started this morning on clear liquid diet, he is receiving Sinemet for new diagnosis of Parkinson disease. Physical therapy and occupational therapy are following On 08/03/2022 patient is alert and oriented 3. Abdominal x-ray completed this a.m. showing mildly distended small and large bowel which may reflect ileus correlate clinically. Surgical services are following awaiting further input. At this time patient denies chest pain or shortness of breath. Patient denies nausea vomiting or diarrhea. Patient denies any urinary burning or frequency. On 08/04/2022 patient was seen and examined on the medical floor he is alert and oriented 3 in no apparent distress he is feeling better he is more calm today there is no fever or chills no headache or dizziness no chest pain no shortness of breath no cough no nausea or vomiting no abdominal pain no diarrhea no blood in the stools no burning with urination no frequency or urgency and no hematuria. Diet is being advanced gradually by surgery patient did not have a bowel movement today physical therapy is ambulating patient possible discharge in the next 2-3 days if improving. On 08/05/2022 patient was seen and examined on the medical floor he is alert responsive in no apparent distress he is still having significant difficulty with his speech otherwise no complaints at this time there is no fever or chills no headache or dizziness no chest pain no shortness of breath no cough no nausea or vomiting no abdominal pain no diarrhea and no urinary symptoms On 08/06/2022 patient was seen and examined on the medical floor he is alert and oriented in no apparent distress he is still having significant difficulty with his speech otherwise no complaints at this time there is no fever or chills no headache or dizziness no chest pain no shortness of breath no cough no nausea or vomiting no abdominal pain no diarrhea and no urinary symptoms. Patient was cleared today by surgery for discharge. [facility] when prior authorization is available. On 08/07/2022 patient was seen and examined on the medical floor he is alert and oriented x 3, he is still having significant difficulty with his speech otherwise no complaints at this time there is no fever or chills no headache or dizziness no chest pain no shortness of breath no cough no nausea or vomiting no abdominal pain no diarrhea and no urinary symptoms. Patient was cleared today by surgery for discharge. Plan is for discharge to [facility] when prior authorization is available. Patient Condition at Discharge: Fair Plan - Discharge Summary Discharge Rx Participant: No New Discharge Prescriptions: New PARoxetine [Paxil] 20 mg PO QAM tab LORazepam [Ativan] 0.5 mg PO TID PRN 3 Days #9 tab PRN Reason: Agitation Lactulose [Cephulac] 30 gm PO BID ml polyethylene glycoL 3350 [Miralax] 17 gm PO DAILY packet Pantoprazole [Protonix] 40 mg PO AC-BRKFST tab Carbidopa-Levodopa 25-100 mg [Sinemet 25-100 mg] 1 each PO TID tab Cyanocobalamin [Vitamin B-12] 1,000 mcg PO DAILY tab Continue lamoTRIgine 200 mg PO BID-W/MEALS Multivitamin [Men's Multi-Vitamin] 1 tab PO W/SUPPER Insulin Glargine [Lantus Vial] 22 units SQ HS Aspirin EC [Ecotrin] 325 mg PO W/SUPPER INSULIN ASPART (NovoLOG) [NovoLOG (formulary)] See Protocol SQ AC-TID Calcium Carbonate [Calcium] 600 mg PO DAILY lisinopriL [Zestril] 5 mg PO DAILY 30 Days #30 tab Discontinued Amitriptyline HCl [Elavil] 50 mg PO HS Pravastatin Sodium [Pravachol] 40 mg PO HS PARoxetine HCL [Paxil] 20 mg PO DAILY Discharge Medication List Insulin Glargine [Lantus Vial] 22 units SQ HS 03/28/14 [History] Multivitamin [Men's Multi-Vitamin] 1 tab PO W/SUPPER 03/28/14 [History] lamoTRIgine 200 mg PO BID-W/MEALS 03/28/14 [History] Aspirin EC [Ecotrin] 325 mg PO W/SUPPER 04/09/16 [History] Calcium Carbonate [Calcium] 600 mg PO DAILY 02/20/21 [History] lisinopriL [Zestril] 5 mg PO DAILY 30 Days #30 tab 02/24/21 [Rx] INSULIN ASPART (NovoLOG) [NovoLOG (formulary)] See Protocol SQ AC-TID 07/26/22 [History] Carbidopa-Levodopa 25-100 mg [Sinemet 25-100 mg] 1 each PO TID tab 08/08/22 [Rx] Cyanocobalamin [Vitamin B-12] 1,000 mcg PO DAILY tab 08/08/22 [Rx] LORazepam [Ativan] 0.5 mg PO TID PRN 3 Days #9 tab 08/08/22 [Rx] Lactulose [Cephulac] 30 gm PO BID ml 08/08/22 [Rx] PARoxetine [Paxil] 20 mg PO QAM tab 08/08/22 [Rx] Pantoprazole [Protonix] 40 mg PO AC-BRKFST tab 08/08/22 [Rx] polyethylene glycoL 3350 [Miralax] 17 gm PO DAILY packet 08/08/22 [Rx] Follow up Appointment(s)/Referral(s): Dc Li, [NON-STAFF] - As Needed John Aquino MD [Primary Care Provider] - 1-2 days
[2022-08-08 15:37] VITALS: BP 164/77; PULSE 91; RESP 16; TEMP 98.4
== END 2022-08-08 14:40 | DRG 690 ==
LOC: EC 14:39 → 4SSUR 20:46
PROVIDERS: ADMIT Internal Medicine; ATTEND Internal Medicine
PROC: 0DCP7ZZ Extirpation of Matter from Rectum, Via Natural or Artificial Opening (ICD-10-PCS; principal; 2022-07-27 08:20)
PROC: 0DJD8ZZ Inspection of Lower Intestinal Tract, Via Natural or Artificial Opening Endoscopic (ICD-10-PCS; principal; 2022-07-27 08:20)
DX: N39.0 Urinary tract infection, site not specified (principal); G93.49 Other encephalopathy; K56.7 Ileus, unspecified; J98.11 Atelectasis; E11.40 Type 2 diabetes mellitus with diabetic neuropathy, unspecified; G20 Parkinson's disease; E53.8 Deficiency of other specified B group vitamins; E11.65 Type 2 diabetes mellitus with hyperglycemia; E78.5 Hyperlipidemia, unspecified; K56.41 Fecal impaction; G40.909 Epilepsy, unspecified, not intractable, without status epilepticus; Z79.4 Long term (current) use of insulin; E86.0 Dehydration; Z20.822 Contact with and (suspected) exposure to COVID-19; B95.2 Enterococcus as the cause of diseases classified elsewhere; I10 Essential (primary) hypertension; F32.A Depression, unspecified; R29.6 Repeated falls; K80.20 Calculus of gallbladder without cholecystitis without obstruction; R33.9 Retention of urine, unspecified; R31.9 Hematuria, unspecified; I83.90 Asymptomatic varicose veins of unspecified lower extremity; Z79.82 Long term (current) use of aspirin; Z79.899 Other long term (current) drug therapy; Z86.73 Personal history of transient ischemic attack (TIA), and cerebral infarction without residual deficits; Z87.891 Personal history of nicotine dependence; Z71.6 Tobacco abuse counseling; Z88.0 Allergy status to penicillin
CPT/HCPCS: 36415; 45330; 70450; 71046; 74019; 74176; 76770; 80048; 80053; 80202; 81001; 82140; 82550; 82565; 82607; 82746; 83036; 83605; 83735; 84132; 84443; 84484; 85025; 87040; 87077; 87086; 87186; 87635; 93005; 94760; 96361; 96365; 96366; 96368; 99285

== ENCOUNTER 2022-08-09 16:52 | Inpatient (IN) | payer MEDICARE ==
[2022-08-09] MEDS ORDERED: SODIUM CHLORIDE 0.9% 1,000 ML IV ONE (17:02)
--- NOTE | 2022-08-09 17:04 | ED ---
General Adult HPI - General Stated complaint: AMS Time Seen by Provider: 08/09/22 16:55 - History of Present Illness Initial comments: Patient is a 71-year-old male with past medical history remarkable for diabetes, hypertension, seizure disorder, recent hospital admission for UTI coming from his rehab facility over concern for altered mental status and agitation. Patient has been having agitation throughout the day today. Was found naked standing in the window at his facility. He was screaming at staff. Was brought to the emergency department for further evaluation. He currently is alert and oriented only 2. Appears slightly confused. Denies any acute complaints at this time. Is moving all 4 extremities. Patient is a poor historian. Presents for further evaluation. - Related Data Home Medications Medication Instructions Recorded Confirmed Insulin Glargine [Lantus Vial] 22 units SQ HS 03/28/14 08/09/22 Multivitamin [Men's Multi-Vitamin] 1 tab PO W/SUPPER 03/28/14 08/09/22 lamoTRIgine 200 mg PO BID@0800,1700 03/28/14 08/09/22 Aspirin EC [Ecotrin] 325 mg PO W/SUPPER 04/09/16 08/09/22 Calcium Carbonate [Calcium] 600 mg PO DAILY@1200 02/20/21 08/09/22 INSULIN ASPART (NovoLOG) [NovoLOG See Protocol SQ AC-TID 07/26/22 08/09/22 (formulary)] Carbidopa-Levodopa 25-100 mg 1 tab PO TID@0800,1200,1700 08/09/22 08/09/22 [Sinemet 25-100 mg] Cyanocobalamin [Vitamin B-12] 1,000 mcg PO DAILY@1200 08/09/22 08/09/22 LORazepam [Ativan] 0.5 mg PO TID PRN 08/09/22 08/09/22 Lactulose [Cephulac] 30 gm PO BID@0800,1700 08/09/22 08/09/22 Magnesium Hydroxide [Milk of 7,200 mg PO DAILY PRN 08/09/22 08/09/22 Magnesia Concentrate] Menthol-Zinc Oxide Oint 1 applic TOPICAL BID 08/09/22 08/09/22 [Calmoseptine Ointment] Na Phos,M-B/Na Phos,Di-Ba [Fleet 133 ml RECTAL DAILY PRN 08/09/22 08/09/22 Adult] PARoxetine [Paxil] 20 mg PO DAILY@0800 08/09/22 08/09/22 Pantoprazole [Protonix] 40 mg PO DAILY@0700 08/09/22 08/09/22 bisacodyL [Dulcolax] 10 mg RECTAL DAILY PRN 08/09/22 08/09/22 lisinopriL [Zestril] 5 mg PO DAILY@0800 08/09/22 08/09/22 polyethylene glycoL 3350 [Miralax] 17 gm PO DAILY@0800 08/09/22 08/09/22 Allergies Allergy/AdvReac Type Severity Reaction Status Date / Time Penicillins Allergy Rash/Hives Verified 08/09/22 17:16 Review of Systems ROS Statement: Those systems with pertinent positive or pertinent negative responses have been documented in the HPI. ROS Other: All systems not noted in ROS Statement are negative. Past Medical History Past Medical History: Diabetes Mellitus, Eye Disorder, Hypertension, Seizure Disorder Additional Past Medical History / Comment(s): encephalopathy; RASH LEFT ANKLE,VARICOSE VEINS,EYE FLOATERS,TREMORS,SEIZURES WITH LOW BLOOD SUGAR-LAST SEIZURE APPROX JUN 2015 History of Any Multi-Drug Resistant Organisms: None Reported Past Surgical History: Orthopedic Surgery Additional Past Surgical History / Comment(s): cataracts bilateral. total left knee. left index finger thea placement Past Anesthesia/Blood Transfusion Reactions: No Reported Reaction Past Psychological History: No Psychological Hx Reported Smoking Status: Never smoker Past Alcohol Use History: None Reported Additional Past Alcohol Use History / Comment(s): QUIT SMOKING 1974,STARTED 1973 Past Drug Use History: None Reported - Past Family History Brother(s) Family Medical History: Diabetes Mellitus Sister(s) Family Medical History: Diabetes Mellitus Additional Family Medical History / Comment(s): MS Father Family Medical History: Cancer, Diabetes Mellitus Additional Family Medical History / Comment(s): COLON [place] General Exam - General Exam Comments Initial Comments: General: Appears in no acute distress. HEAD: Normal with no signs of head trauma. EYES: PERRLA, EOMI, conjunctiva normal, no discharge. Pupils are 2 mm and equal bilaterally. ENT: Hearing grossly intact, normal oropharynx. RESPIRATORY: Clear breath sounds bilaterally. No wheezes, rales, or rhonchi. C/V: Regular rate and rhythm. S1 and S2 auscultated, no edema, peripheral pulses 2+ and intact throughout ABD: Abdomen is soft, nontender. Slightly distended in the suprapubic region. Condom cath bag is empty. EXT: Normal range of motion, no obvious deformity SKIN: No rashes or lesions observed on exposed skin. NEURO: Alert and oriented 2. Moving all 4 extremity is. No obvious focal deficits. Course Vital Signs 08/09/22 08/09/22 16:56 18:41 Temperature 97.7 F Pulse Rate 103 H 80 Respiratory 22 16 Rate Blood Pressure 152/87 148/74 O2 Sat by Pulse 97 97 Oximetry Medical Decision Making - Medical Decision Making Based on the patient's presentation and physical exam, concern for altered mental status for the patient. He may be dehydrated or have urinary retention. Cannot rule out infectious etiology at this time. He is a poor historian. We will obtain broad workup. Vital signs are within acceptable limits. Patient was bladder scanned and revealed partially 500 mL of urine. Stanley catheter was placed and drained approximately 500 mL of urine. EKG was obtained and showed no acute ischemic process. Chest x-ray as interpreted by myself reveals concern for posterior bilateral infiltrate versus atelectasis. No obvious acute bony traumatic injury. No pneumothorax. CT brain is interpreted by myself shows no acute intracranial process, no midline shift, no hemorrhage. Patient's laboratory studies returned and were remarkable for a hyperglycemia of 319. Troponin is undetectable. Urinalysis is unremarkable. UDS is positive for TCAs, benzos. Remainder the labs are unremarkable. At this time on reevaluation, patient is alert and oriented 4. This is an improvement in his neuro status. I discussed his workup and that he will be admitted. He was in agreement this plan. I spoke to the admitting physician, Dr. Simons, who was in agreement with the admission. He requested that neurology as well as psychiatry be consulted for the patient which they were. Patient was started on IV antibiotics Zosyn and azithromycin as the patient had recent antibiotics for UTI is being treated for possible pneumonia. We'll continue Stanley catheter placement at this time. Patient was in agreement this plan. - Lab Data Result diagrams: 08/09/22 17:11 08/09/22 17:11 Lab Results 08/09/22 08/09/22 08/09/22 Range/Units 17:11 17:11 17:11 WBC 7.8 (3.8-10.6) k/uL RBC 4.88 (4.30-5.90) m/uL Hgb 14.7 D (13.0-17.5) gm/dL Hct 44.3 (39.0-53.0) % MCV 90.8 (80.0-100.0) fL MCH 30.2 (25.0-35.0) pg MCHC 33.3 (31.0-37.0) g/dL RDW 12.8 (11.5-15.5) % Plt Count 310 (150-450) k/uL MPV 7.8 Neutrophils % 79 % Lymphocytes % 13 % Monocytes % 5 % Eosinophils % 2 % Basophils % 1 % Neutrophils # 6.1 (1.3-7.7) k/uL Lymphocytes # 1.0 (1.0-4.8) k/uL Monocytes # 0.4 (0-1.0) k/uL Eosinophils # 0.1 (0-0.7) k/uL Basophils # 0.1 (0-0.2) k/uL PT 10.7 (9.0-12.0) sec INR 1.0 (<1.2) APTT 22.4 (22.0-30.0) sec Sodium (137-145) mmol/L Potassium (3.5-5.1) mmol/L Chloride (98-107) mmol/L Carbon Dioxide (22-30) mmol/L Anion Gap mmol/L BUN (9-20) mg/dL Creatinine (0.66-1.25) mg/dL Est GFR (CKD-EPI)AfAm (>60 ml/min/1.73 sqM) Est GFR (CKD-EPI)NonAf (>60 ml/min/1.73 sqM) Glucose (74-99) mg/dL POC Glucose (mg/dL) (70-110) mg/dL POC Glu Umbrella Finisher ID Plasma Lactic Acid Ramin (0.7-2.0) mmol/L Calcium (8.4-10.2) mg/dL Total Bilirubin (0.2-1.3) mg/dL AST (17-59) U/L ALT (4-49) U/L Alkaline Phosphatase (38-126) U/L Ammonia (<30) umol/L Troponin I (0.000-0.034) ng/mL Total Protein (6.3-8.2) g/dL Albumin (3.5-5.0) g/dL Urine Color Urine Appearance (Clear) Urine pH (5.0-8.0) Ur Specific [place] (1.001-1.035) Urine Protein (Negative) Urine Glucose (UA) (Negative) Urine Ketones (Negative) Urine Blood (Negative) Urine Nitrite (Negative) Urine Bilirubin (Negative) Urine Urobilinogen (<2.0) mg/dL Ur Leukocyte Esterase (Negative) Urine Opiates Screen Not Detected (NotDetected) Ur Oxycodone Screen Not Detected (NotDetected) Urine Methadone Screen Not Detected (NotDetected) Ur Propoxyphene Screen Not Detected (NotDetected) Ur Barbiturates Screen Not Detected (NotDetected) U Tricyclic Antidepress Detected H (NotDetected) Ur Phencyclidine Scrn Not Detected (NotDetected) Ur Amphetamines Screen Not Detected (NotDetected) U Methamphetamines Scrn Not Detected (NotDetected) U Benzodiazepines Scrn Detected H (NotDetected) Urine Cocaine Screen Not Detected (NotDetected) U Marijuana (THC) Screen Not Detected (NotDetected) Serum Alcohol mg/dL 08/09/22 08/09/22 08/09/22 Range/Units 17:11 17:11 17:11 WBC (3.8-10.6) k/uL RBC (4.30-5.90) m/uL Hgb (13.0-17.5) gm/dL Hct (39.0-53.0) % MCV (80.0-100.0) fL MCH (25.0-35.0) pg MCHC (31.0-37.0) g/dL RDW (11.5-15.5) % Plt Count (150-450) k/uL MPV Neutrophils % % Lymphocytes % % Monocytes % % Eosinophils % % Basophils % % Neutrophils # (1.3-7.7) k/uL Lymphocytes # (1.0-4.8) k/uL Monocytes # (0-1.0) k/uL Eosinophils # (0-0.7) k/uL Basophils # (0-0.2) k/uL PT (9.0-12.0) sec INR (<1.2) APTT (22.0-30.0) sec Sodium 139 (137-145) mmol/L Potassium 4.3 (3.5-5.1) mmol/L Chloride 98 (98-107) mmol/L Carbon Dioxide 27 (22-30) mmol/L Anion Gap 14 mmol/L BUN 17 (9-20) mg/dL Creatinine 0.83 (0.66-1.25) mg/dL Est GFR (CKD-EPI)AfAm >90 (>60 ml/min/1.73 sqM) Est GFR (CKD-EPI)NonAf 90 (>60 ml/min/1.73 sqM) Glucose 319 H (74-99) mg/dL POC Glucose (mg/dL) (70-110) mg/dL POC Glu Umbrella Finisher ID Plasma Lactic Acid Ramin (0.7-2.0) mmol/L Calcium 9.7 (8.4-10.2) mg/dL Total Bilirubin 0.7 (0.2-1.3) mg/dL AST 30 (17-59) U/L ALT 20 (4-49) U/L Alkaline Phosphatase 178 H (38-126) U/L Ammonia (<30) umol/L Troponin I <0.012 (0.000-0.034) ng/mL Total Protein 7.6 (6.3-8.2) g/dL Albumin 4.6 (3.5-5.0) g/dL Urine Color Yellow Urine Appearance Clear (Clear) Urine pH 6.0 (5.0-8.0) Ur Specific [place] 1.018 (1.001-1.035) Urine Protein Trace H (Negative) Urine Glucose (UA) 4+ H (Negative) Urine Ketones 2+ H (Negative) Urine Blood Negative (Negative) Urine Nitrite Negative (Negative) Urine Bilirubin Negative (Negative) Urine Urobilinogen <2.0 (<2.0) mg/dL Ur Leukocyte Esterase Negative (Negative) Urine Opiates Screen (NotDetected) Ur Oxycodone Screen (NotDetected) Urine Methadone Screen (NotDetected) Ur Propoxyphene Screen (NotDetected) Ur Barbiturates Screen (NotDetected) U Tricyclic Antidepress (NotDetected) Ur Phencyclidine Scrn (NotDetected) Ur Amphetamines Screen (NotDetected) U Methamphetamines Scrn (NotDetected) U Benzodiazepines Scrn (NotDetected) Urine Cocaine Screen (NotDetected) U Marijuana (THC) Screen (NotDetected) Serum Alcohol <10 mg/dL 08/09/22 08/09/22 Range/Units 17:11 17:35 WBC (3.8-10.6) k/uL RBC (4.30-5.90) m/uL Hgb (13.0-17.5) gm/dL Hct (39.0-53.0) % MCV (80.0-100.0) fL MCH (25.0-35.0) pg MCHC (31.0-37.0) g/dL RDW (11.5-15.5) % Plt Count (150-450) k/uL MPV Neutrophils % % Lymphocytes % % Monocytes % % Eosinophils % % Basophils % % Neutrophils # (1.3-7.7) k/uL Lymphocytes # (1.0-4.8) k/uL Monocytes # (0-1.0) k/uL Eosinophils # (0-0.7) k/uL Basophils # (0-0.2) k/uL PT (9.0-12.0) sec INR (<1.2) APTT (22.0-30.0) sec Sodium (137-145) mmol/L Potassium (3.5-5.1) mmol/L Chloride (98-107) mmol/L Carbon Dioxide (22-30) mmol/L Anion Gap mmol/L BUN (9-20) mg/dL Creatinine (0.66-1.25) mg/dL Est GFR (CKD-EPI)AfAm (>60 ml/min/1.73 sqM) Est GFR (CKD-EPI)NonAf (>60 ml/min/1.73 sqM) Glucose (74-99) mg/dL POC Glucose (mg/dL) 273 H (70-110) mg/dL POC Glu Umbrella Finisher ID Darleen Jones Plasma Lactic Acid Ramin 1.7 (0.7-2.0) mmol/L Calcium (8.4-10.2) mg/dL Total Bilirubin (0.2-1.3) mg/dL AST (17-59) U/L ALT (4-49) U/L Alkaline Phosphatase (38-126) U/L Ammonia <9 (<30) umol/L Troponin I (0.000-0.034) ng/mL Total Protein (6.3-8.2) g/dL Albumin (3.5-5.0) g/dL Urine Color Urine Appearance (Clear) Urine pH (5.0-8.0) Ur Specific [place] (1.001-1.035) Urine Protein (Negative) Urine Glucose (UA) (Negative) Urine Ketones (Negative) Urine Blood (Negative) Urine Nitrite (Negative) Urine Bilirubin (Negative) Urine Urobilinogen (<2.0) mg/dL Ur Leukocyte Esterase (Negative) Urine Opiates Screen (NotDetected) Ur Oxycodone Screen (NotDetected) Urine Methadone Screen (NotDetected) Ur Propoxyphene Screen (NotDetected) Ur Barbiturates Screen (NotDetected) U Tricyclic Antidepress (NotDetected) Ur Phencyclidine Scrn (NotDetected) Ur Amphetamines Screen (NotDetected) U Methamphetamines Scrn (NotDetected) U Benzodiazepines Scrn (NotDetected) Urine Cocaine Screen (NotDetected) U Marijuana (THC) Screen (NotDetected) Serum Alcohol mg/dL - EKG Data -: EKG Interpreted by Me EKG Comments: 12-lead Electrocardiogram Interpretation Note EKG was reviewed and interpreted by myself. 12-lead ECG performed at 1723 is interpreted by me as revealing normal sinus rhythm at a rate of 88 beats per minute. Left axis deviation. GA interval is 136 ms, QRS duration is 100 ms, QTc is 424 ms.. There were no ST or T wave abnormalities to suggest myocardial ischemia or injury. R wave progression across the precordium was satisfactory. By my interpretation this EKG is non-diagnostic for acute ischemia. When compared with EKG from July 2022, no significant change. Disposition Clinical Impression: Altered mental status, Urinary retention, Pneumonia Disposition: ADMITTED IP TO THIS [facility] Condition: Stable Time of Disposition: 18:45
[2022-08-09 17:27] LABS: Basophils # (A) 0.1 k/uL (0-0.2); Basophils % (A) 1 %; Eosinophils # (A) 0.1 k/uL (0-0.7); Eosinophils % (A) 2 %; HCT 44.3 % (39.0-53.0); Lymphocytes % (A) 13 %; MCH 30.2 pg (25.0-35.0); MCHC 33.3 g/dL (31.0-37.0); MCV 90.8 fL (80.0-100.0); Mean Platelet Volume 7.8; Monocytes # (A) 0.4 k/uL (0-1.0); Monocytes % (A) 5 %; Neutrophils # (A) 6.1 k/uL (1.3-7.7); Neutrophils % (A) 79 %; Platelet Count 310 k/uL (150-450); RBC 4.88 m/uL (4.30-5.90); RDW 12.8 % (11.5-15.5); WBC 7.8 k/uL (3.8-10.6)
[2022-08-09 17:31] LABS: Appearance,Urine Clear (Clear); Bilirubin,Urine Negative (Negative); Blood,Urine Negative (Negative); Color,Urine Yellow; Glucose,Urine (UA) 4+ (Negative); Leukocyte Esterase,Urine Negative (Negative); Nitrite,Urine Negative (Negative); Protein,Urine Trace (Negative); Specific Gravity,Urine 1.018 (1.001-1.035); Urobilinogen,Urine <2.0 mg/dL (<2.0)
[2022-08-09 17:33] LABS: Ketones,Urine 2+ (Negative)
[2022-08-09 17:36] LABS: ALT 20 U/L (4-49); AST 30 U/L (17-59); African American GFR (CKD) >90 (>60 ml/min/1.73 sqM); Albumin 4.6 g/dL (3.5-5.0); Alcohol <10 mg/dL; Alkaline Phosphatase 178 U/L (38-126); Anion Gap 14 mmol/L; Blood Urea Nitrogen 17 mg/dL (9-20); Calcium 9.7 mg/dL (8.4-10.2); Carbon Dioxide 27 mmol/L (22-30); Chloride 98 mmol/L (98-107); Glucose 319 mg/dL (74-99); Non-African American GFR(CKD) 90 (>60 ml/min/1.73 sqM); Potassium 4.3 mmol/L (3.5-5.1); Sodium 139 mmol/L (137-145); Total Bilirubin 0.7 mg/dL (0.2-1.3); Total Protein 7.6 g/dL (6.3-8.2)
[2022-08-09 17:37] LABS: Glucose,Whole Blood 273 mg/dL (70-110)
[2022-08-09 17:37] LABS: Lactic Acid, Venous 1.7 mmol/L (0.7-2.0); Partial Thromboplastin Time 22.4 sec (22.0-30.0); Prothrombin Time 10.7 sec (9.0-12.0)
[2022-08-09 17:39] LABS: Amphetamine Screen,Urine Not Detected (NotDetected); Cocaine Screen,Urine Not Detected (NotDetected); Opiate Screen,Urine Not Detected (NotDetected); Phencyclidine Screen,Urine Not Detected (NotDetected); Urn Cannabinoid Scrn Not Detected (NotDetected)
[2022-08-09 17:40] LABS: Barbiturate Screen,Urine Not Detected (NotDetected); Benzodiazepines Screen,Urine Detected (NotDetected); Methadone Screen, Urine Not Detected (NotDetected); Oxycodone Screen, Urine Not Detected (NotDetected); Tricyclic Antidepressant,Urine Detected (NotDetected)
[2022-08-09 17:41] LABS: HGB 14.7 gm/dL (13.0-17.5)
--- NOTE | 2022-08-09 17:56 | XR ---
EXAMINATION TYPE: XR chest 2V DATE OF EXAM: 08/09/2022 COMPARISON: Chest x-ray July 27, 2022 HISTORY: Altered mental status and weakness. TECHNIQUE: Frontal and lateral views of the chest are obtained. FINDINGS: There are new increased posterior bibasilar opacities. The cardiac silhouette size is sta ble and within normal limits. The osseous structures are intact. IMPRESSION: New posterior bibasilar acute infiltrate and/or atelectasis.
--- NOTE | 2022-08-09 18:16 | CT ---
EXAMINATION TYPE: CT brain wo con DATE OF EXAM: 08/09/2022 HISTORY: ams CT DLP: 1151.4 mGycm. Automated Exposure Control for Dose Reduction was Utilized. TECHNIQUE: CT scan of the head is performed without contrast. COMPARISON: CT brain 13 days ago. FINDINGS: There is no acute intracranial hemorrhage or midline shift identified. There is moderate diffuse ventricular and sulcal prominence consistent with diffuse age-related cerebral atrophy. Ther e is moderate low-attenuation in the periventricular white matter consistent with chronic small vesse l ischemic change. The globes are intact and the visualized sinuses are clear. IMPRESSION: No acute intracranial hemorrhage or midline shift. There is moderate diffuse age-relate d cerebral atrophy and moderate chronic small vessel ischemic change redemonstrated. No significant change from prior.
[2022-08-09] MEDS ORDERED: NALOXONE 0.4 MG/ML 1 ML VIAL IV PRN (18:52)
[2022-08-09] MEDS ORDERED: AZITHROMYCIN 500 MG in SODIUM CHLORIDE 0.9% 250 ML IVPB STA (18:54)
[2022-08-09] MEDS ORDERED: PNEUMONIA PROTOCOL UTILIZED 1 EACH MISC PO PRN (18:54)
[2022-08-09] MEDS ORDERED: CEFEPIME 2 GM in SODIUM CHLORIDE 0.9% 100 ML IVPB STA (18:54)
[2022-08-09] MEDS ORDERED: MAGNESIUM HYDROXIDE 2,400 MG/10 ML CUP PO PRN (18:55)
[2022-08-09] MEDS ORDERED: LORazepam 0.5 MG TAB PO PRN (18:55)
[2022-08-09] MEDS ORDERED: bisacodyL 10 MG SUPP RECTAL PRN (18:55)
[2022-08-09] MEDS ORDERED: DEXTROSE 50% SYRINGE 50 ML IVP PRN ×2 (18:57)
[2022-08-09] MEDS: SODIUM CHLORIDE 0.9% 1,000 ML IV SCH (19:19)
[2022-08-09 20:42] LABS: Glucose,Whole Blood 289 mg/dL (70-110)
[2022-08-09] MEDS: INSULIN DETEMIR (LEVEMIR) 100 UNIT/ML SYR SQ SCH (21:52)
[2022-08-10] MEDS: CEFEPIME 2 GM in SODIUM CHLORIDE 0.9% 100 ML IVPB SCH ×3 (03:56→20:33)
[2022-08-10 06:12] LABS: Glucose,Whole Blood 156 mg/dL (70-110)
[2022-08-10] MEDS: INSULIN ASPART (NovoLOG) 100 UNIT/ML VIAL SQ SCH ×3 (06:19→18:43)
[2022-08-10] MEDS ORDERED: PARoxetine 20 MG TAB PO SCH (08:00)
--- NOTE | 2022-08-10 09:19 | XR ---
EXAMINATION TYPE: XR chest 1V portable DATE OF EXAM: 08/10/2022 COMPARISON: 08/09/2022 HISTORY: Cough TECHNIQUE: Single frontal view of the chest is obtained. FINDINGS: There is no pleural effusion, or pneumothorax seen. The cardiac silhouette size is within normal limits. The osseous structures are intact. Arthropathy of the shoulders. No overt failure. A basilar subsegmental changes have improved. IMPRESSION: 1. Improving basilar infiltrate or atelectasis.
[2022-08-10] MEDS ORDERED: CYANOCOBALAMIN 1,000 MCG/ML 1 ML VIAL IM ONE (10:00)
[2022-08-10] MEDS: PANTOPRAZOLE 40 MG TABLET PO SCH (10:24)
[2022-08-10] MEDS: LACTULOSE 20 GM/30 ML CUP PO SCH ×2 (10:24→18:46)
[2022-08-10] MEDS: lisinopriL 5 MG TAB PO SCH (10:24)
[2022-08-10] MEDS: lamoTRIgine 100 MG TAB PO SCH ×3 (10:24→18:52)
[2022-08-10] MEDS: CARBIDOPA-LEVODOPA 25-100 MG 1 EACH TAB PO SCH ×4 (10:24→18:45)
[2022-08-10] MEDS: polyethylene glycoL 3350 17 GM POWD.PACK PO SCH (10:25)
[2022-08-10] MEDS: HEPARIN SODIUM,PORCINE/PF 5,000 UNIT/0.5 ML SYRINGE SQ SCH ×4 (10:31→23:19)
[2022-08-10 10:40] LABS: Basophils # (A) 0.04 X 10*3/uL (0.00-0.10); Basophils % (A) 0.7 %; Eosinophils # (A) 0.25 X 10*3/uL (0.04-0.35); Eosinophils % (A) 4.1 %; HCT 38.2 % (39.6-50.0); HGB 12.5 g/dL (13.0-17.0); Immature Grans, Automated 0.3 %; Lymphocytes # (A) 1.66 X 10*3/uL (0.90-5.00); Lymphocytes % (A) 27.4 %; MCHC 32.7 g/dL (32.0-37.0); MCV 88.6 fL (80.0-97.0); Mean Platelet Volume 10.1 fL (9.5-12.2); Monocytes # (A) 0.56 X 10*3/uL (0.20-1.00); Monocytes % (A) 9.3 %; NRBC Per 100 WBC 0 /100 WBCS (0.0-0.0); Neutrophils # (A) 3.52 X 10*3/uL (1.80-7.70); Neutrophils % (A) 58.2 %; Platelet Count 290 X 10*3/uL (140-440); RBC 4.31 X 10*6/uL (4.40-5.60); RDW 12.5 % (11.5-14.5); WBC 6.05 X 10*3/uL (4.50-10.00)
[2022-08-10] MEDS ORDERED: HALOPERIDOL LACTATE 5 MG/ML 1 ML VIAL IM PRN ×3 (10:42→13:15)
--- NOTE | 2022-08-10 10:43 | P.HPIM ---
History of Present Illness This is a pleasant 71 years old male with multiple medical problems as below. Patient presents because of altered mental state. Patient was in rehab. This morning he was at the edge of the bed, fully awake and alert, however patient has difficulty expressing himself, looks like he has expressive aphasia. He could not tell me he is in the hospital while once he is reminded he is in the hospital he could say it is Kareen, also has difficulty in telling the date and person. He could not tell why he came to the hospital but he says he feels generally weak. He denies chest pain or dyspnea or cough and. However patient is poor historian and could not provide full information. Patient was recently discharged from the hospital yesterday. She's been followed by surgery for fecal impaction and ileus. Also his been followed by pulmonary team and infectious disease team for UTI during her last admission Vitals are stable since admission. Labs reviewed. Has unremarkable CBC, INR, BMP and liver enzymes. Because is 156-289. Urinalysis is not suspicious of infection however shows glucosuria. Urine drug screen is positive for tricyclic antidepressant and benzodiazepines Chest x-ray: Posterior basilar acute infiltrate and/or atelectasis CT of the brain showing no acute change. Admission received IV fluids and started on cefepime and Zithromax. Review of Systems Review of systems CONSTITUTIONAL: No fever, no malaise, no fatigue. HEENT: No recent visual problems or hearing problems. Denied any sore throat. CARDIOVASCULAR: No orthopnea, PND, no palpitations, no syncope. PULMONARY: No shortness of breath, no cough, no hemoptysis. GASTROINTESTINAL: No diarrhea, no nausea, no vomiting, no abdominal pain. Normoactive bowel sounds. NEUROLOGICAL: No headaches, no weakness, no numbness. HEMATOLOGICAL: Denies any bleeding or petechiae. GENITOURINARY: Denies any burning micturition, frequency, or urgency. MUSCULOSKELETAL/RHEUMATOLOGICAL: Denies any joint pain, swelling, or any muscle pain. ENDOCRINE: Denies any polyuria or polydipsia. Past Medical History Past Medical History: Diabetes Mellitus, Eye Disorder, Hypertension, Seizure Disorder Additional Past Medical History / Comment(s): encephalopathy; RASH LEFT ANKLE,VARICOSE VEINS,EYE FLOATERS,TREMORS,SEIZURES WITH LOW BLOOD SUGAR-LAST SEIZURE APPROX JUN 2015 History of Any Multi-Drug Resistant Organisms: None Reported Past Surgical History: Orthopedic Surgery Additional Past Surgical History / Comment(s): cataracts bilateral. total left knee. left index finger thea placement Past Anesthesia/Blood Transfusion Reactions: No Reported Reaction Past Psychological History: No Psychological Hx Reported Smoking Status: Never smoker Past Alcohol Use History: None Reported Additional Past Alcohol Use History / Comment(s): QUIT SMOKING 1974,STARTED 1973 Past Drug Use History: None Reported - Past Family History Brother(s) Family Medical History: Diabetes Mellitus Sister(s) Family Medical History: Diabetes Mellitus Additional Family Medical History / Comment(s): MS Father Family Medical History: Cancer, Diabetes Mellitus Additional Family Medical History / Comment(s): COLON CA Medications and Allergies Home Medications Medication Instructions Recorded Confirmed Type Insulin Glargine [Lantus Vial] 22 units SQ HS 03/28/14 08/09/22 History Multivitamin [Men's Multi-Vitamin] 1 tab PO W/SUPPER 03/28/14 08/09/22 History lamoTRIgine 200 mg PO BID@0800,1700 03/28/14 08/09/22 History Aspirin EC [Ecotrin] 325 mg PO W/SUPPER 04/09/16 08/09/22 History Calcium Carbonate [Calcium] 600 mg PO DAILY@1200 02/20/21 08/09/22 History INSULIN ASPART (NovoLOG) [NovoLOG See Protocol SQ AC-TID 07/26/22 08/09/22 History (formulary)] Carbidopa-Levodopa 25-100 mg 1 tab PO TID@0800,1200,1700 08/09/22 08/09/22 History [Sinemet 25-100 mg] Cyanocobalamin [Vitamin B-12] 1,000 mcg PO DAILY@1200 08/09/22 08/09/22 History LORazepam [Ativan] 0.5 mg PO TID PRN 08/09/22 08/09/22 History Lactulose [Cephulac] 30 gm PO BID@0800,1700 08/09/22 08/09/22 History Magnesium Hydroxide [Milk of 7,200 mg PO DAILY PRN 08/09/22 08/09/22 History Magnesia Concentrate] Menthol-Zinc Oxide Oint 1 applic TOPICAL BID 08/09/22 08/09/22 History [Calmoseptine Ointment] Na Phos,M-B/Na Phos,Di-Ba [Fleet 133 ml RECTAL DAILY PRN 08/09/22 08/09/22 History Adult] PARoxetine [Paxil] 20 mg PO DAILY@0800 08/09/22 08/09/22 History Pantoprazole [Protonix] 40 mg PO DAILY@0700 08/09/22 08/09/22 History bisacodyL [Dulcolax] 10 mg RECTAL DAILY PRN 08/09/22 08/09/22 History lisinopriL [Zestril] 5 mg PO DAILY@0800 08/09/22 08/09/22 History polyethylene glycoL 3350 [Miralax] 17 gm PO DAILY@0800 08/09/22 08/09/22 History Allergies Allergy/AdvReac Type Severity Reaction Status Date / Time Penicillins Allergy Rash/Hives Verified 08/09/22 17:16 Physical Exam Vitals: Vital Signs Temp Pulse Pulse Resp BP BP Pulse Ox 08/10/22 08:00 97.9 F 80 16 160/72 93 L 08/10/22 02:00 97.2 F L 86 14 163/71 94 L 08/09/22 20:00 97.9 F 93 90 16 130/74 156/70 94 L 08/09/22 18:41 80 16 148/74 97 08/09/22 16:56 97.7 F 103 H 22 152/87 97 Intake and Output 08/09/22 08/10/22 08/10/22 22:59 06:59 14:59 Output Total 500 Balance -500 Output: Urine 500 Uretheral (Stanley) 500 Other: Voiding Method Indwelling Catheter Weight 73.074 kg GENERAL: The patient is alert and oriented x3, not in any acute distress. Well developed, well nourished. HEENT: Pupils are round and equally reacting to light. EOMI. No scleral icterus. No conjunctival pallor. Normocephalic, atraumatic. No pharyngeal erythema. No thyromegaly. CARDIOVASCULAR: S1 and S2 present. No murmurs, rubs, or gallops. PULMONARY: Chest is clear to auscultation, no wheezing or crackles. ABDOMEN: Soft, nontender, nondistended, normoactive bowel sounds. No palpable organomegaly. MUSCULOSKELETAL: No joint swelling or deformity. EXTREMITIES: No cyanosis, clubbing, or pedal edema. NEUROLOGICAL: Gross neurological examination did not reveal any focal deficits. SKIN: No rashes. no petechiae. Results CBC & Chem 7: 08/09/22 17:11 08/09/22 17:11 Labs: Abnormal Lab Results - Last 24 Hours (Table) 08/09/22 08/09/22 08/09/22 Range/Units 17:11 17:11 17:11 Glucose 319 H (74-99) mg/dL POC Glucose (mg/dL) (70-110) mg/dL Alkaline Phosphatase 178 H (38-126) U/L Urine Protein Trace H (Negative) Urine Glucose (UA) 4+ H (Negative) Urine Ketones 2+ H (Negative) U Tricyclic Antidepress Detected H (NotDetected) U Benzodiazepines Scrn Detected H (NotDetected) 08/09/22 08/09/22 08/10/22 Range/Units 17:35 20:40 06:10 Glucose (74-99) mg/dL POC Glucose (mg/dL) 273 H 289 H 156 H (70-110) mg/dL Alkaline Phosphatase (38-126) U/L Urine Protein (Negative) Urine Glucose (UA) (Negative) Urine Ketones (Negative) U Tricyclic Antidepress (NotDetected) U Benzodiazepines Scrn (NotDetected) Thrombosis Risk Factor Assmnt - Choose All That Apply Any of the Below Risk Factors Present?: Yes Each Factor Represents 1 point: Serious lung disease incl. pneumonia (< 1month) Each Risk Factor Represents 2 Points: Age 61-74 years Thrombosis Risk Factor Assessment Total Risk Factor Score: 3 Thrombosis Risk Factor Assessment Level: Moderate Risk Assessment and Plan Assessment: New posterior basilar pneumonia. Rule out aspiration pneumonia Patient history of UTI Recent history of vitamin B12 deficiency. Was 187 on 07/29/2022 Recent falls Altered mental status, could be toxic metabolic encephalopathy. Ruled out other neurological causes Acute recurrent retention status post Stanley catheter Diabetes mellitus Hypertension History of seizure History of cataract History of Parkinson disease Plan: Continue with antibiotic. Currently on cefepime and Zithromax. Continue gentle hydration Neurology and psychiatry consult Check procalcitonin. Continue with IV hydration currently 75 mL/h Continue with Lamictal Check swallow evaluation Continue with Stanley catheter. Add Flomax Labs and medication were reviewed.. Continue same treatment. Continue with symptomatic treatment. Resume home medication. Monitor labs and vitals. DVT and GI prophylaxis. Further recommendations as per clinical course of the patient DVT prophylaxis: Subcutaneous heparin GI Prophylaxis: Ppx PT/OT: Pending Prognosis is guarded
[2022-08-10] MEDS: TAMSULOSIN 0.4 MG CAP.ER.24H PO SCH (11:17)
--- NOTE | 2022-08-10 11:40 | P.CNNES ---
History of Present Illness Consult date: 08/10/22 Requesting physician: Amy Jackson Reason for Consult: altered mental status, agitation History of Present Illness: This is a 71-year-old gentleman with likely Parkinson's disease, vitamin B-12 deficiency, history of seizure but was notified nonepileptic in nature, TIA in 2020, diabetes mellitus presented emergency department for altered mental status and agitation that. Some of the history is obtained from the patient's nurse as well as the EMR. It seems the patient having agitation throughout the day and was making standing and the window at his the rehab facility. He was screaming as staff. Upon presented to the hospital he is alert oriented X2. According to the nurse he continues to be agitated. Upon seeing the patient is requesting that to go home. It seems that the patient is on Ativan 0.5 mg a tablet 3 times a day as needed, proximal 1520 mg daily, I personally saw the patient in our facility on 07/26/2022 admission and was seen last by me on 08/02/2022 and I felt likely the patient has Parkinson's disease because of recurrent falls tremors shuffling gait hypophonia and the improvement was Sinemet. He also had vitamin B12 deficiency. I started the patient on Sinement 25-100mg 1 tab tid. At that admission he also had a fecal impaction. As stated earlier his condition neurologist who was improving after medication was started (Sinemet). Junior's refer to my notes for further details. Some of the workup during this hospital visit consisted of: Patient is afebrile. White blood cell is within normal limits and the rest of the CBC with differential is unremarkable Ammonia level is less than 9. Sodium, calcium, BUN and creatinine is within normal limits. Urine drug seeing is positive for benzos as well as tricyclic antidepressant. Serum alcohol was less than 10. CT of the brain is reported as no acute intracranial hemorrhage or midline shift. Is moderate diffuse age-related cerebral atrophy and moderate chronic small vessel ischemic changes redemonstrated. No significant change from prior. Review of Systems Review of system is limited because of the patient's conditions last cooperation but the pertinent positive and negative as per HPI. Past Medical History Past Medical History: Diabetes Mellitus, Eye Disorder, Hypertension, Seizure Disorder Additional Past Medical History / Comment(s): encephalopathy; RASH LEFT ANKLE,VARICOSE VEINS,EYE FLOATERS,TREMORS,SEIZURES WITH LOW BLOOD SUGAR-LAST SEIZURE APPROX JUN 2015 History of Any Multi-Drug Resistant Organisms: None Reported Past Surgical History: Orthopedic Surgery Additional Past Surgical History / Comment(s): cataracts bilateral. total left knee. left index finger thea placement Past Anesthesia/Blood Transfusion Reactions: No Reported Reaction Past Psychological History: No Psychological Hx Reported Smoking Status: Never smoker Past Alcohol Use History: None Reported Additional Past Alcohol Use History / Comment(s): QUIT SMOKING 1974,STARTED 1973 Past Drug Use History: None Reported - Past Family History Brother(s) Family Medical History: Diabetes Mellitus Sister(s) Family Medical History: Diabetes Mellitus Additional Family Medical History / Comment(s): MS Father Family Medical History: Cancer, Diabetes Mellitus Additional Family Medical History / Comment(s): COLON CA Medications and Allergies Home Medications Medication Instructions Recorded Confirmed Type Insulin Glargine [Lantus Vial] 22 units SQ HS 03/28/14 08/09/22 History Multivitamin [Men's Multi-Vitamin] 1 tab PO W/SUPPER 03/28/14 08/09/22 History lamoTRIgine 200 mg PO BID@0800,1700 03/28/14 08/09/22 History Aspirin EC [Ecotrin] 325 mg PO W/SUPPER 04/09/16 08/09/22 History Calcium Carbonate [Calcium] 600 mg PO DAILY@1200 02/20/21 08/09/22 History INSULIN ASPART (NovoLOG) [NovoLOG See Protocol SQ AC-TID 07/26/22 08/09/22 History (formulary)] Carbidopa-Levodopa 25-100 mg 1 tab PO TID@0800,1200,1700 08/09/22 08/09/22 History [Sinemet 25-100 mg] Cyanocobalamin [Vitamin B-12] 1,000 mcg PO DAILY@1200 08/09/22 08/09/22 History LORazepam [Ativan] 0.5 mg PO TID PRN 08/09/22 08/09/22 History Lactulose [Cephulac] 30 gm PO BID@0800,1700 08/09/22 08/09/22 History Magnesium Hydroxide [Milk of 7,200 mg PO DAILY PRN 08/09/22 08/09/22 History Magnesia Concentrate] Menthol-Zinc Oxide Oint 1 applic TOPICAL BID 08/09/22 08/09/22 History [Calmoseptine Ointment] Na Phos,M-B/Na Phos,Di-Ba [Fleet 133 ml RECTAL DAILY PRN 08/09/22 08/09/22 History Adult] PARoxetine [Paxil] 20 mg PO DAILY@0800 08/09/22 08/09/22 History Pantoprazole [Protonix] 40 mg PO DAILY@0700 08/09/22 08/09/22 History bisacodyL [Dulcolax] 10 mg RECTAL DAILY PRN 08/09/22 08/09/22 History lisinopriL [Zestril] 5 mg PO DAILY@0800 08/09/22 08/09/22 History polyethylene glycoL 3350 [Miralax] 17 gm PO DAILY@0800 08/09/22 08/09/22 History Allergies Allergy/AdvReac Type Severity Reaction Status Date / Time Penicillins Allergy Rash/Hives Verified 08/09/22 17:16 Physical Examination - Vital Signs Vital Signs: Vital Signs Temp Pulse Pulse Resp BP BP Pulse Ox 08/10/22 08:00 97.9 F 80 16 160/72 93 L 08/10/22 02:00 97.2 F L 86 14 163/71 94 L 08/09/22 20:00 97.9 F 93 90 16 130/74 156/70 94 L 08/09/22 18:41 80 16 148/74 97 08/09/22 16:56 97.7 F 103 H 22 152/87 97 Intake and Output 08/09/22 08/10/22 08/10/22 22:59 06:59 14:59 Output Total 500 Balance -500 Output: Urine 500 Uretheral (Stanley) 500 Other: Voiding Method Indwelling Catheter Weight 73.074 kg Exam is limited because of his condition/cooperation. GENERAL: The patient is lying in bed and seem very agitated. CHEST: Unable to assess because cooperation. LUNG: Unable to assess because cooperation. ABDOMEN/GI: Unable to assess because cooperation. NEUROLOGICAL: Limited. Higher mental function: The patient is awake, alert, oriented to self, correctly stated he was in the hospital. He stated the year is 2019. He is somewhat slow to respond and has stuttering. Language is limited in assessment. Cranial nerves: Is tracking throughout the room. No facial weakness. Has hyphonia. Otherwise rest is limited. Motor: The strength is limited because of cooperation. Cerebellum: Unable to assess Sensation: Unable to assess. Reflexes (right/left): Unable to assess. Plantars Unable to assess. Results - Laboratory Findings CBC and BMP: 08/10/22 06:35 08/09/22 17:11 Abnormal Lab Findings: Abnormal Labs 08/09/22 08/09/22 08/09/22 17:11 17:11 17:11 RBC Hgb Hct Glucose 319 H POC Glucose (mg/dL) Alkaline Phosphatase 178 H Urine Protein Trace H Urine Glucose (UA) 4+ H Urine Ketones 2+ H U Tricyclic Antidepress Detected H U Benzodiazepines Scrn Detected H 08/09/22 08/09/22 08/10/22 17:35 20:40 06:10 RBC Hgb Hct Glucose POC Glucose (mg/dL) 273 H 289 H 156 H Alkaline Phosphatase Urine Protein Urine Glucose (UA) Urine Ketones U Tricyclic Antidepress U Benzodiazepines Scrn 08/10/22 06:35 RBC 4.31 L Hgb 12.5 L Hct 38.2 L Glucose POC Glucose (mg/dL) Alkaline Phosphatase Urine Protein Urine Glucose (UA) Urine Ketones U Tricyclic Antidepress U Benzodiazepines Scrn Assessment and Plan Assessment: Agitation with confusion seems delirium. Unsure exactly caused but the patient is on benzo and tricyclic which can worsens confusion and agitation especially elderly. Likely Parkinson's disease and has improvement in his symptoms on last admission (beginning of 07/2022) History of nonepileptic seizure and the last episode was about a year ago (was notified due to hypoglycemia by his neurologist) Vitamin B-12 deficiency History of TIA 2020 Diabetes mellitus Plan: Recommend avoiding benzos and tricyclic antidepressant especially in elderly patient which can worsen the confusion and agitation. I started the patient on seroquel 25mg qhs for agitation and Haldol 1 mg every 4 hours as needed for agitation This does not appear like seizures at it's hard to obtain an EEG because of his cooperation. Patient is continued on his home dose of Sinement 25-100mg 1 tab tid. Therapies consulted by the primary team Psychiatry team is consulted We'll defer the rest of the medical management to primary team. The plan discussed with the patient nurse Thank you for the consultation Time with Patient: Greater than 30
[2022-08-10 11:42] LABS: Glucose,Whole Blood 110 mg/dL (70-110)
[2022-08-10] MEDS: SODIUM CHLORIDE 0.9% 1,000 ML IV SCH (12:51)
[2022-08-10] MEDS ORDERED: HALOPERIDOL LACTATE 5 MG/ML 1 ML VIAL IM ONE (13:10)
[2022-08-10 13:36] LABS: African American GFR (CKD) 110.3 (60.0-200.0); Anion Gap 12.5 mmol/L (10.00-18.00); BUN/Creat Ratio 20.25 Ratio (12.00-20.00); Blood Urea Nitrogen 14.6 mg/dL (9.0-27.0); Calcium 9.2 mg/dL (8.7-10.3); Carbon Dioxide 23.5 mmol/L (20.0-27.5); Non-African American GFR(CKD) 95.1 (60.0-200.0); Potassium 3.6 mmol/L (3.5-5.5)
--- NOTE | 2022-08-10 13:38 | P.CN ---
Psychiatric Consult - . Consult date: 08/10/22 Consult:: 08/10/22 13:37 IDENTIFYING DATA: This patient is a , retired, 71 year old male with a significant history of seizure who presents with altered mental status. HISTORY OF PRESENT ILLNESS: The patient presented to the hospital on 08/09/2022, coming from his rehab facility after being recently discharged earlier this July for a urinary tract infection. As per review, the patient reportedly was agitated at his rehab throughout the day and was often screaming at staff and standing by his window naked. Psychiatry has been consulted for evaluation and management of altered mental status. He was evaluated by Dr Stafford during his last admission for delirium and the patient was recommended to discontinue elavil at the time due to anticholinergic side effects. The patient was also evaluated by Neurology this month and there was significant clinical signs of Parkinsons and the patined was stated on Sinemet with noticeable improvement in neurological symptoms. Upon this admission, patient is noted to have new posterior basilar pneumonia. On evaluation on the medical floor, the patient is currently a poor historian of events leading up to this hospitalization. He is alert and oriented to place and self but not to time. He is difficult to redirect and attempted to pull out his IV line and his catheter requiring the administration of IM haldol 3 mg. As per discussion with his treatment team, the patient has been refusing any oral medications. He denies any pain or other concerns to this provider but is requesting discharge. PAST PSYCHIATRIC HISTORY: Patient has no reported psychiatric history however is prescribed a regimen of paxil. No reported previous psychiatric hospitalizations or outpatient follow-up. Unable to determine previous suicide history. PAST MEDICAL HISTORY: Past Medical History: Diabetes Mellitus, Eye Disorder, Hypertension, Seizure Disorder Additional Past Medical History / Comment(s): encephalopathy; RASH LEFT ANKLE,VARICOSE VEINS,EYE FLOATERS,TREMORS,SEIZURES WITH LOW BLOOD SUGAR-LAST SEIZURE APPROX JUN 2015 History of Any Multi-Drug Resistant Organisms: None Reported Past Surgical History: Orthopedic Surgery Additional Past Surgical History / Comment(s): cataracts bilateral. total left knee. left index finger thea placement Past Anesthesia/Blood Transfusion Reactions: No Reported Reaction Past Psychological History: No Psychological Hx Reported Smoking Status: Never smoker Past Alcohol Use History: None Reported Additional Past Alcohol Use History / Comment(s): QUIT SMOKING 1974,STARTED 1973 Past Drug Use History: None Reported ALLERGIES: Penicillins CHEMICAL DEPENDENCY HISTORY: Patient quit smoking in 1974. No reported alcohol or drug use. FAMILY PSYCHIATRIC/SUBSTANCE USE HISTORY: Unable to obtain SOCIAL HISTORY: Patient is , retired, and was previously staying in a rehab after being hospitalized earlier this month. MENTAL STATUS EXAM: General Appearance: Patient appears to be stated age is alert, however difficult to direct and is uncooperative. Patient appears to have fair hygiene and grooming wearing hospital gown with fair eye contact. Behavior: Patient displays psychomotor agitation and is attempting to pull his IV line and catheter. Occasional episodes of visual frustration where he closes his eyes and grunts. Speech: Patient's speech is spontaneous however has difficulty putting together complete sentences. Mood/Affect: Patient reports their mood is "I want to go home.", affect is irritable. Suicidality/Homicidality Unable to assess. Perceptions: Unable to assess. Though content/process: Appears disorganized and unamenable to redirection. Memory and concentration: AOX2. Concentration grossly poor. Judgment and insight: poor Vital Signs Temp 97.9 F 08/10/22 08:00 Pulse 80 08/10/22 08:00 Resp 16 08/10/22 08:00 BP 160/72 08/10/22 08:00 Pulse Ox 93 L 08/10/22 08:00 FiO2 Intake & Output 08/09/22 08/10/22 08/10/22 18:59 06:59 18:59 Output Total 500 Balance -500 Weight 73.074 kg 73.074 kg Output: Urine 500 Uretheral (Stanley) 500 Other: Voiding Method Indwelling Catheter Laboratory Results WBC 6.05 X 10*3/uL (4.50-10.00) 08/10/22 06:35 RBC 4.31 X 10*6/uL (4.40-5.60) L 08/10/22 06:35 Hgb 12.5 g/dL (13.0-17.0) L 08/10/22 06:35 Hct 38.2 % (39.6-50.0) L 08/10/22 06:35 MCV 88.6 fL (80.0-97.0) 08/10/22 06:35 MCH 29.0 pg (27.0-32.0) 08/10/22 06:35 MCHC 32.7 g/dL (32.0-37.0) 08/10/22 06:35 RDW 12.5 % (11.5-14.5) 08/10/22 06:35 Plt Count 290 X 10*3/uL (140-440) 08/10/22 06:35 MPV 10.1 fL (9.5-12.2) 08/10/22 06:35 Immature Gran % (Auto) 0.3 % 08/10/22 06:35 Absolute Nucleated RBC 0 X 10*3/uL (0.00-0.00) 08/10/22 06:35 Neutrophils % 58.2 % 08/10/22 06:35 Lymphocytes % 27.4 % 08/10/22 06:35 Monocytes % 9.3 % 08/10/22 06:35 Eosinophils % 4.1 % 08/10/22 06:35 Basophils % 0.7 % 08/10/22 06:35 Immature Gran # 0.02 X 10*3/uL (0.00-0.04) 08/10/22 06:35 Neutrophils # 3.52 X 10*3/uL (1.80-7.70) 08/10/22 06:35 Lymphocytes # 1.66 X 10*3/uL (0.90-5.00) 08/10/22 06:35 Monocytes # 0.56 X 10*3/uL (0.20-1.00) 08/10/22 06:35 Eosinophils # 0.25 X 10*3/uL (0.04-0.35) 08/10/22 06:35 Basophils # 0.04 X 10*3/uL (0.00-0.10) 08/10/22 06:35 NRBC/100 WBC Diff 0 /100 WBCS (0.0-0.0) 08/10/22 06:35 PT 10.7 sec (9.0-12.0) 08/09/22 17:11 INR 1.0 (<1.2) 08/09/22 17:11 APTT 22.4 sec (22.0-30.0) 08/09/22 17:11 Sodium 140 mmol/L (135-145) 08/10/22 06:35 Potassium 3.6 mmol/L (3.5-5.5) 08/10/22 06:35 Chloride 104 mmol/L (96-109) 08/10/22 06:35 Carbon Dioxide 23.5 mmol/L (20.0-27.5) 08/10/22 06:35 Anion Gap 12.50 mmol/L (10.00-18.00) 08/10/22 06:35 BUN 14.6 mg/dL (9.0-27.0) 08/10/22 06:35 Creatinine 0.7 mg/dL (0.6-1.5) 08/10/22 06:35 Est GFR (CKD-EPI)AfAm 110.3 (60.0-200.0) 08/10/22 06:35 Est GFR (CKD-EPI)NonAf 95.1 (60.0-200.0) 08/10/22 06:35 BUN/Creatinine Ratio 20.25 Ratio (12.00-20.00) H 08/10/22 06:35 Glucose 148 mg/dL (70-110) H 08/10/22 06:35 POC Glucose (mg/dL) 110 mg/dL (70-110) 08/10/22 11:41 POC Glu [employer] L[employer]arian ID Felicita Otero 08/10/22 11:[address] Glu mg/dL 175 08/10/22 06:35 Hemoglobin A1c 7.7 % (0.0-6.0) H 08/10/22 06:35 Plasma Lactic Acid Ramin 1.7 mmol/L (0.7-2.0) 08/09/22 17:11 Calcium 9.2 mg/dL (8.7-10.3) 08/10/22 06:35 Total Bilirubin 0.7 mg/dL (0.2-1.3) 08/09/22 17:11 AST 30 U/L (17-59) 08/09/22 17:11 ALT 20 U/L (4-49) 08/09/22 17:11 Alkaline Phosphatase 178 U/L (38-126) H 08/09/22 17:11 Ammonia <9 umol/L (<30) 08/09/22 17:11 Troponin I <0.012 ng/mL (0.000-0.034) 08/09/22 17:11 Total Protein 7.6 g/dL (6.3-8.2) 08/09/22 17:11 Albumin 4.6 g/dL (3.5-5.0) 08/09/22 17:11 Urine Color Yellow 08/09/22 17:11 Urine Appearance Clear (Clear) 08/09/22 17:11 Urine pH 6.0 (5.0-8.0) 08/09/22 17:11 Ur Specific [place] 1.018 (1.001-1.035) 08/09/22 17:11 Urine Protein Trace (Negative) H 08/09/22 17:11 Urine Glucose (UA) 4+ (Negative) H 08/09/22 17:11 Urine Ketones 2+ (Negative) H 08/09/22 17:11 Urine Blood Negative (Negative) 08/09/22 17:11 Urine Nitrite Negative (Negative) 08/09/22 17:11 Urine Bilirubin Negative (Negative) 08/09/22 17:11 Urine Urobilinogen <2.0 mg/dL (<2.0) 08/09/22 17:11 Ur Leukocyte Esterase Negative (Negative) 08/09/22 17:11 Urine Opiates Screen Not Detected (NotDetected) 08/09/22 17:11 Ur Oxycodone Screen Not Detected (NotDetected) 08/09/22 17:11 Urine Methadone Screen Not Detected (NotDetected) 08/09/22 17:11 Ur Propoxyphene Screen Not Detected (NotDetected) 08/09/22 17:11 Ur Barbiturates Screen Not Detected (NotDetected) 08/09/22 17:11 U Tricyclic Antidepress Detected (NotDetected) H 08/09/22 17:11 Ur Phencyclidine Scrn Not Detected (NotDetected) 08/09/22 17:11 Ur Amphetamines Screen Not Detected (NotDetected) 08/09/22 17:11 U Methamphetamines Scrn Not Detected (NotDetected) 08/09/22 17:11 U Benzodiazepines Scrn Detected (NotDetected) H 08/09/22 17:11 Urine Cocaine Screen Not Detected (NotDetected) 08/09/22 17:11 U Marijuana (THC) Screen Not Detected (NotDetected) 08/09/22 17:11 Serum Alcohol <10 mg/dL 08/09/22 17:11 IMPRESSIONS: Agitation with confusion; delirium - Multifactorial - pneumonia, hospitalization, polypharmacy, anticholinergic medications - Patient may have had discontinuation syndrome from abrupt discontiuation of paxil. Paxil is also anticholinergic which may contribute to confusion. Vitamin B-12 deficiency Diabetes mellitus PLAN: -Continue your medical management -At this time patient DOES NOT meet criteria for inpatient psychiatric admission. -Patient DOES NOT have decision making capacity at this time and is unable to reason through and communicate/appreciate the risks, benefits and alternatives to treatment. -Delirium precautions recommended with patient including - avoiding use of galen cotics and ANESTHESIA ASSOCIATE sedatives, limit anticholinergic medications when possible, frequent re-orientation, minimize use of restraints, open window shades during the day and close them at night -Would recommend the following medication changes/additions: Discontinue Paxil. Will order one time dose of prozac 20 mg oral liquid to address discontinuation syndrome from paxil. Increase Haldol to 3 mg IM q4H PRN for agitation - EKG reviewed. Increase Seroquel to 25 mg qAM and 50 mg qHS for agitation/psychosis -Continue 1:1 sitter for safety -Will continue to follow along 08/10/22 13:37
[2022-08-10 16:41] LABS: Glucose,Whole Blood 105 mg/dL (70-110)
[2022-08-10] MEDS: ASPIRIN 325 MG TAB PO SCH (18:46)
[2022-08-10] MEDS: MULTIVITAMINS, THERA 1 EACH TAB PO SCH (18:50)
[2022-08-10] MEDS: AZITHROMYCIN 500 MG in SODIUM CHLORIDE 0.9% 250 ML IVPB SCH (19:21)
[2022-08-10 19:26] LABS: Glucose,Whole Blood 126 mg/dL (70-110)
[2022-08-10] MEDS: INSULIN DETEMIR (LEVEMIR) 100 UNIT/ML SYR SQ SCH (20:41)
[2022-08-10] MEDS ORDERED: INSULIN DETEMIR (LEVEMIR) 100 UNIT/ML SYR SQ ONE (20:43)
[2022-08-10] MEDS ORDERED: QUEtiapine 50 MG TAB PO SCH (21:00)
[2022-08-10] MEDS ORDERED: FLUoxetine HCL 20 MG CAP PO SCH (21:00)
[2022-08-10] MEDS ORDERED: QUEtiapine 25 MG TAB PO SCH (21:00)
[2022-08-10 22:08] LABS: Glucose,Whole Blood 164 mg/dL (70-110)
[2022-08-11 01:01] LABS: Glucose,Whole Blood 151 mg/dL (70-110)
[2022-08-11] MEDS: CEFEPIME 2 GM in SODIUM CHLORIDE 0.9% 100 ML IVPB SCH ×3 (04:26→18:30)
[2022-08-11 06:02] LABS: Glucose,Whole Blood 134 mg/dL (70-110)
[2022-08-11] MEDS: PANTOPRAZOLE 40 MG TABLET PO SCH (06:13)
[2022-08-11] MEDS: INSULIN ASPART (NovoLOG) 100 UNIT/ML VIAL SQ SCH ×3 (06:13→17:14)
[2022-08-11 11:31] LABS: Glucose,Whole Blood 126 mg/dL (70-110)
[2022-08-11] MEDS: lamoTRIgine 100 MG TAB PO SCH ×2 (12:04→17:13)
[2022-08-11] MEDS: CARBIDOPA-LEVODOPA 25-100 MG 1 EACH TAB PO SCH ×3 (12:04→17:13)
[2022-08-11] MEDS: LACTULOSE 20 GM/30 ML CUP PO SCH ×2 (12:04→17:13)
[2022-08-11] MEDS: lisinopriL 5 MG TAB PO SCH (12:05)
[2022-08-11] MEDS: TAMSULOSIN 0.4 MG CAP.ER.24H PO SCH (12:05)
[2022-08-11] MEDS: polyethylene glycoL 3350 17 GM POWD.PACK PO SCH (12:05)
[2022-08-11] MEDS: QUEtiapine 25 MG TAB PO SCH (12:05)
[2022-08-11] MEDS: CYANOCOBALAMIN 500 MCG TAB PO SCH (12:05)
[2022-08-11] MEDS: HEPARIN SODIUM,PORCINE/PF 5,000 UNIT/0.5 ML SYRINGE SQ SCH ×2 (12:06→17:13)
--- NOTE | 2022-08-11 13:17 | P.PN ---
Subjective Progress Note Date: 08/11/22 The patient seen at bedside and according to the nurse he is refusing this medication. He continues to state he was to go home. Objective - Vital Signs Vital signs: Vital Signs Temp 97.4 F L 08/11/22 07:24 Pulse 84 08/11/22 07:24 Resp 17 08/11/22 07:24 BP 163/78 08/11/22 07:24 Pulse Ox 94 L 08/11/22 07:24 FiO2 Intake & Output 08/10/22 08/11/22 08/11/22 18:59 06:59 18:59 Intake Total 600 Output Total 520 650 Balance 80 -650 Intake: IV 600 Sodium Chloride 0.9% 1, 600 000 ml @ 75 mls/hr IV . [id number] [facility] Rx#:[id number] Output: Urine 520 650 Uretheral (Stanley) 520 Other: Voiding Method Indwelling Catheter Indwelling Catheter - Exam Exam is limited because of his condition/cooperation. NEUROLOGICAL: Limited. Higher mental function: The patient is awake, alert, oriented to self, correctly stated he was in the hospital. He stated the year is 2019. He is somewhat slow to respond and has stuttering. Language is limited in assessment. Cranial nerves: Is tracking throughout the room. No facial weakness. Has hyphonia. Otherwise rest is limited. Motor: The strength is limited because of cooperation. But moving bilateral uppers on his own. Cerebellum: Unable to assess Sensation: Unable to assess. Reflexes (right/left): Unable to assess. Plantars Unable to assess. Some of the workup during this hospital visit consisted of: Patient is afebrile. White blood cell is within normal limits and the rest of the CBC with differential is unremarkable Ammonia level is less than 9. Sodium, calcium, BUN and creatinine is within normal limits. Hemoglobin A1c 7.7. Urine drug seeing is positive for benzos as well as tricyclic antidepressant. Serum alcohol was less than 10. CT of the brain is reported as no acute intracranial hemorrhage or midline shift. Is moderate diffuse age-related cerebral atrophy and moderate chronic small vessel ischemic changes redemonstrated. No significant change from prior. - Labs CBC & Chem 7: 08/10/22 06:35 08/10/22 06:35 Labs: Abnormal Lab Results - Last 24 Hours (Table) 08/10/22 08/10/22 08/10/22 Range/Units 06:35 19:24 22:07 BUN/Creatinine Ratio 20.25 H (12.00-20.00) Ratio Glucose 148 H (70-110) mg/dL POC Glucose (mg/dL) 126 H 164 H (70-110) mg/dL 08/11/22 08/11/22 08/11/22 Range/Units 01:00 06:01 11:30 BUN/Creatinine Ratio (12.00-20.00) Ratio Glucose (70-110) mg/dL POC Glucose (mg/dL) 151 H 134 H 126 H (70-110) mg/dL Microbiology - Last 24 Hours (Table) 08/09/22 17:11 Blood Culture - Preliminary Blood No Growth after 24 hours 08/09/22 17:11 Blood Culture - Preliminary Blood No Growth after 24 hours Assessment and Plan Assessment: Agitation with confusion seems delirium. Unsure exactly caused but the patient is on benzo and tricyclic which can worsens confusion and agitation especially elderly. 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 Likely Parkinson's disease and has improvement in his symptoms on last admission (beginning of 07/2022) History of nonepileptic seizure and the last episode was about a year ago (was notified due to hypoglycemia by his neurologist) Vitamin B-12 deficiency History of TIA 2020 Diabetes mellitus Plan: Recommend avoiding benzos and tricyclic antidepressant especially in elderly patient which can worsen the confusion and agitation. Continue seroquel 25mg qhs for agitation and Haldol 1 mg every 4 hours as needed for agitation This does not appear like seizures at it's hard to obtain an EEG because of his cooperation. Patient is continued on his home dose of Sinement 25-100mg 1 tab tid. Psychiatry team is consulted We'll defer the rest of the medical management to primary team. The plan discussed with the patient nurse Time with Patient: Less than 30
[2022-08-11] MEDS: SODIUM CHLORIDE 0.9% 1,000 ML IV SCH (15:02)
[2022-08-11 16:28] LABS: Glucose,Whole Blood 250 mg/dL (70-110)
[2022-08-11] MEDS: MULTIVITAMINS, THERA 1 EACH TAB PO SCH (17:13)
[2022-08-11] MEDS: ASPIRIN 325 MG TAB PO SCH (17:13)
[2022-08-11] MEDS: AZITHROMYCIN 500 MG in SODIUM CHLORIDE 0.9% 250 ML IVPB SCH (17:14)
[2022-08-11 19:10] LABS: Glucose,Whole Blood 289 mg/dL (70-110)
--- NOTE | 2022-08-11 20:04 | P.PN ---
Progress Note - Text Progress Note Date: 08/11/22 Interval History: Patient was seen bedside. He is oriented to self and place but not time. Upon being approached, he mumbled about not wanting his present. Nursing staff mentioned that his was visiting prior and he became agitated and did not want her to be present. Nursing staff otherwise denies patient being agitated during daytime. However, they report that he was agitated at night but refused to take any oral medications. Patient has difficulty in expressing himself verbally. He took him a few minutes to verbalize that he did not want to answer any more questions. Neuro was consulted and continued home Sinemet dosing. Mental Status Exam: General Appearance: Patient appears to be stated age is alert, however difficult to direct and is uncooperative. Patient appears to have fair hygiene and grooming wearing hospital gown with fair eye contact. Behavior: Patient displays psychomotor agitation. Occasional episodes of visual frustration where he closes his eyes and grunts. Speech: Patient's speech is spontaneous however has difficulty putting together complete sentences. Mood/Affect: mood anxious, affect is irritable. Suicidality/Homicidality Unable to assess. Perceptions: Unable to assess. Though content/process: Appears disorganized and unamenable to redirection. Memory and concentration: AOX2. Concentration grossly poor. 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 -Patient DOES NOT have decision making capacity at this time and is unable to reason through and communicate/appreciate the risks, benefits and alternatives to treatment. -Delirium precautions recommended with patient including - avoiding use of narcotics and CIRCULATION SALES REPRESENTATIVE sedatives, limit anticholinergic medications when possible, frequent re-orientation, minimize use of restraints, open window shades during the day and close them at night -Would recommend the following medication changes/additions: Continue Haldol 3 mg IM q4H PRN for agitation - EKG reviewed. Given that patient has not received Seroquel (being that it is PO), will start Zyprexa Zydis 2.5 mg qHS for agitation at night. Please be aware of risk of mortality with antipsychotics in patients with dementia. Continue Seroquel PO 25 mg qAM for agitation/psychosis but stop Seroquel 50 mg qHS - Despite several attempts to discuss patient's care with patient's over phone, phone was not answered/busy. Unable to leave VM -Continue 1:1 sitter for safety -Will continue to follow along
[2022-08-11] MEDS ORDERED: OLANZapine ODT 5 MG TAB PO SCH (21:00)
[2022-08-11] MEDS: INSULIN DETEMIR (LEVEMIR) 100 UNIT/ML SYR SQ SCH (21:12)
[2022-08-12] MEDS: HEPARIN SODIUM,PORCINE/PF 5,000 UNIT/0.5 ML SYRINGE SQ SCH ×3 (00:33→16:56)
[2022-08-12 01:33] LABS: Glucose,Whole Blood 230 mg/dL (70-110)
--- NOTE | 2022-08-12 03:07 | PN ---
PROGRESS NOTE DATE OF SERVICE: 08/11/2022 SUBJECTIVE: This is a 71-year-old gentleman who was admitted with new-onset bilateral aspiration pneumonia, was combative in the custodial apparently. No chest pain, no palpitations. Patient continues to be confused. OBJECTIVE: VITAL SIGNS: On exam, pulse is 84, blood pressure 160/70, and respirations 17. HEENT: Conjunctivae normal. NECK: No JVD. CARDIOVASCULAR: S1, S2. RESPIRATIONS: Diminished at the bases, few scattered rhonchi. ABDOMEN: Soft. NERVOUS SYSTEM: No focal deficits. LABORATORY DATA: Glucose 250. Labs are noted. ASSESSMENT: 1. Bibasilar pneumonia, acute, possibly aspiration pneumonia. 2. Urinary tract infection. 3. Vitamin B12 deficiency. 4. Change in mental status. 5. Diabetes mellitus, type 2. 6. Multiple medical issues. RECOMMENDATIONS: Recommended to continue current medications, continue symptomatic treatment. Otherwise, the patient is on broad-spectrum IV antibiotics at this time. I will continue the same with bronchodilators, closely monitor. Neurology and psychiatry has been consulted. Further recommendations to follow. MMODL / IJN: [id number] /
[2022-08-12] MEDS: SODIUM CHLORIDE 0.9% 1,000 ML IV SCH ×2 (03:08→15:29)
[2022-08-12] MEDS: CEFEPIME 2 GM in SODIUM CHLORIDE 0.9% 100 ML IVPB SCH ×3 (03:08→17:05)
[2022-08-12 05:48] LABS: Glucose,Whole Blood 154 mg/dL (70-110)
[2022-08-12] MEDS: INSULIN ASPART (NovoLOG) 100 UNIT/ML VIAL SQ SCH ×3 (06:26→16:57)
[2022-08-12] MEDS: PANTOPRAZOLE 40 MG TABLET PO SCH (06:27)
[2022-08-12] MEDS: CARBIDOPA-LEVODOPA 25-100 MG 1 EACH TAB PO SCH ×3 (09:38→16:56)
[2022-08-12] MEDS: LACTULOSE 20 GM/30 ML CUP PO SCH ×2 (09:38→16:56)
[2022-08-12] MEDS: TAMSULOSIN 0.4 MG CAP.ER.24H PO SCH (09:39)
[2022-08-12] MEDS: lisinopriL 5 MG TAB PO SCH (09:39)
[2022-08-12] MEDS: CYANOCOBALAMIN 500 MCG TAB PO SCH (09:39)
[2022-08-12] MEDS: lamoTRIgine 100 MG TAB PO SCH ×2 (09:39→16:56)
[2022-08-12] MEDS: polyethylene glycoL 3350 17 GM POWD.PACK PO SCH (09:39)
[2022-08-12] MEDS: QUEtiapine 25 MG TAB PO SCH (09:40)
[2022-08-12 09:52] LABS: Basophils # (A) 0.04 X 10*3/uL (0.00-0.10); Basophils % (A) 0.8 %; Eosinophils # (A) 0.38 X 10*3/uL (0.04-0.35); Eosinophils % (A) 7.3 %; HCT 38.4 % (39.6-50.0); HGB 12.9 g/dL (13.0-17.0); Immature Grans, Automated 0.4 %; Lymphocytes # (A) 1.17 X 10*3/uL (0.90-5.00); Lymphocytes % (A) 22.3 %; MCH 29.5 pg (27.0-32.0); MCHC 33.6 g/dL (32.0-37.0); MCV 87.9 fL (80.0-97.0); Mean Platelet Volume 10.2 fL (9.5-12.2); Monocytes % (A) 9.5 %; NRBC Per 100 WBC 0 /100 WBCS (0.0-0.0); Neutrophils # (A) 3.13 X 10*3/uL (1.80-7.70); Neutrophils % (A) 59.7 %; Platelet Count 259 X 10*3/uL (140-440); RBC 4.37 X 10*6/uL (4.40-5.60); RDW 12.3 % (11.5-14.5); WBC 5.24 X 10*3/uL (4.50-10.00)
[2022-08-12 11:37] LABS: Glucose,Whole Blood 135 mg/dL (70-110)
[2022-08-12 12:18] LABS: African American GFR (CKD) 110.4 (60.0-200.0); BUN/Creat Ratio 16.27 Ratio (12.00-20.00); Blood Urea Nitrogen 11.7 mg/dL (9.0-27.0); Calcium 9.2 mg/dL (8.7-10.3); Carbon Dioxide 24.2 mmol/L (20.0-27.5); Non-African American GFR(CKD) 95.2 (60.0-200.0); Potassium 3.6 mmol/L (3.5-5.5)
[2022-08-12 16:17] LABS: Glucose,Whole Blood 184 mg/dL (70-110)
--- NOTE | 2022-08-12 16:32 | P.PN ---
Progress Note - Text Progress Note Date: 08/12/22 Interval History: Patient was seen bedside. He is oriented to self and place but not time. Upon being approached, he appears irritable and mumbles. Patient has difficulty in expressing himself verbally. Nursing staff mentioned that his was visiting prior and he became agitated and did not want her to be present. Nursing staff otherwise denies patient being agitated during daytime and said that he was not agitated at nighttime either. However, patient continues to not take any oral medications. However, he has been eating well and slept better last night. This provider spoke with his over the phone. She reports that patient has had a gradual decline in executive functioning. However, she reports that this behavior of agitation and combativeness is new for him. Discussed the diagnosis and treatment plan. She was agreeable with having the patient on Depakote syrup at night. Neuro was consulted and continued home Sinemet dosing. Mental Status Exam: General Appearance: Patient appears to be stated age is alert, however difficult to direct and is uncooperative. Patient appears to have fair hygiene and grooming wearing hospital gown with fair eye contact. Behavior: Patient displays psychomotor agitation. Occasional episodes of visual frustration where he closes his eyes and grunts. Speech: Patient's speech is spontaneous however has difficulty putting together complete sentences. Mood/Affect: mood anxious, affect is irritable. Suicidality/Homicidality Unable to assess. Perceptions: Unable to assess. Though content/process: Appears disorganized and unamenable to redirection. Memory and concentration: AOX2. Concentration grossly poor. 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 -Patient DOES NOT have decision making capacity at this time and is unable to reason through and communicate/appreciate the risks, benefits and alternatives to treatment. -Delirium precautions recommended with patient including - avoiding use of narco tics and ACTING PROFESSOR sedatives, limit anticholinergic medications when possible, frequent re-orientation, minimize use of restraints, open window shades during the day and close them at night -Would recommend the following medication changes/additions: Start Depakene solution 125 mg qHS for mood stabilization Continue Haldol 3 mg IM q4H PRN for agitation - EKG reviewed. Stop Seroquel and Zyprexa Zydis given patient has not been taking this - Neuro on board - Discussed assessment and plan with his and she is agreeable - Discussed plan with nursing -Continue 1:1 sitter for safety -Will continue to follow along
[2022-08-12] MEDS: ASPIRIN 325 MG TAB PO SCH (16:56)
[2022-08-12] MEDS: MULTIVITAMINS, THERA 1 EACH TAB PO SCH (16:57)
[2022-08-12 19:16] LABS: Glucose,Whole Blood 286 mg/dL (70-110)
[2022-08-12 20:17] LABS: Glucose,Whole Blood 273 mg/dL (70-110)
[2022-08-12] MEDS: INSULIN DETEMIR (LEVEMIR) 100 UNIT/ML SYR SQ SCH (20:25)
[2022-08-12] MEDS: VALPROIC ACID ORAL SOLN 250 MG/5 ML CUP PO SCH (20:25)
[2022-08-13] MEDS: CEFEPIME 2 GM in SODIUM CHLORIDE 0.9% 100 ML IVPB SCH ×4 (00:32→22:48)
[2022-08-13] MEDS: HEPARIN SODIUM,PORCINE/PF 5,000 UNIT/0.5 ML SYRINGE SQ SCH ×3 (00:32→07:53)
[2022-08-13] MEDS: SODIUM CHLORIDE 0.9% 1,000 ML IV SCH ×2 (00:33→07:54)
--- NOTE | 2022-08-13 03:59 | PN ---
PROGRESS NOTE DATE OF SERVICE: 08/12/2022 SUBJECTIVE: This 71-year-old gentleman, who was admitted with new onset bilateral aspiration pneumonia, also had some confusion. No chest pain. No palpitations. No fever. OBJECTIVE: VITAL SIGNS: Pulse is 86, blood pressure 159/75, respirations 17. HEENT: Conjunctivae normal. NECK: No JVD. CARDIOVASCULAR: S1, S2 muffled. RESPIRATIONS: Breath sounds diminished at the bases. ABDOMEN: Soft. NERVOUS SYSTEM: Diffusely weak. LABORATORY DATA: Reviewed. ASSESSMENT: 1. Bibasilar pneumonia, possibly aspiration pneumonia. 2. Urinary tract infection. 3. Vitamin B12 deficiency. 4. Change in mental status, acute. 5. Diabetes mellitus, type 2. 6. Multiple medical issues. RECOMMENDATIONS: I recommend to continue current medications and symptomatic treatment. The patient is combative at this time. The patient is started on cefepime. We will continue to monitor. Dr. Simons will follow. MMRIVKAL / KENDALLN: [id number] /
[2022-08-13 06:36] LABS: Glucose,Whole Blood 199 mg/dL (70-110)
[2022-08-13] MEDS: INSULIN ASPART (NovoLOG) 100 UNIT/ML VIAL SQ SCH ×3 (06:39→17:02)
[2022-08-13] MEDS: PANTOPRAZOLE 40 MG TABLET PO SCH (06:39)
[2022-08-13] MEDS: LACTULOSE 20 GM/30 ML CUP PO SCH ×2 (07:50→07:54)
[2022-08-13] MEDS: CARBIDOPA-LEVODOPA 25-100 MG 1 EACH TAB PO SCH ×3 (07:50→07:55)
[2022-08-13] MEDS: polyethylene glycoL 3350 17 GM POWD.PACK PO SCH (07:51)
[2022-08-13] MEDS: CYANOCOBALAMIN 500 MCG TAB PO SCH (07:51)
[2022-08-13] MEDS: lamoTRIgine 100 MG TAB PO SCH ×2 (07:51→07:54)
[2022-08-13] MEDS: TAMSULOSIN 0.4 MG CAP.ER.24H PO SCH (07:51)
[2022-08-13] MEDS: lisinopriL 5 MG TAB PO SCH (07:51)
[2022-08-13] MEDS: MULTIVITAMINS, THERA 1 EACH TAB PO SCH (07:54)
[2022-08-13] MEDS: ASPIRIN 325 MG TAB PO SCH (07:54)
[2022-08-13 11:36] LABS: Glucose,Whole Blood 124 mg/dL (70-110)
--- NOTE | 2022-08-13 11:53 | CDI ---
Documentation Clarification Form Date: 08/13/2022 11:04:25 AM From: Alba Decker RN, CCDS Admit Date: 08/09/2022 06:52:00 PM Patient Name: Thang Key Visit Number: [id number] Discharge Date: ATTENTION: The Clinical Documentation Specialists (CDI) and [facility] Coding Staff appreciate your assistance in clarifying documentation. Please respond to the clarification below the line at the bottom and electronically sign. The CDI & [facility] Coding staff will review the response and follow-up if needed. Please note: Queries are made part of the Legal Health Record. If you have any questions, please contact the author of this message via ITS. Dr. Selam Gaston Conflicting documentation has been found in the medical record. As attending physician, please provide clarification. 08/10/22 H/P: Altered mental status could be toxic metabolic encephalopathy. 08/10/22 Neurology: Agitation with confusion seems delirium. Unsure exactly cause but the patient is on benzo and tricyclic which can worsen confusion and agitation especially elderly. Likely Parkinsons disease and has improvement in his symptoms on last admission. History/Risk Factors: Diabetes mellitus, Hypertension, seizure, Parkinson disease, encephalopathy Clinical Indicators: [id number] with mental status change and agitation he was orientated x2. 08/09 Vital signs: 152/87 103 22 97.7 97% Ra. He had urinary retention. Cannot rule out infectious etiology per ED assessment. His UDS is positive for TCA's benzos. WBC 7.8. CXR showing pneumonia. Treatment: .9 NS 1, 000 MLS HR Neuro checks per orders Maxipine 2 GM IVPB 08/09 once Azithromycin 500 MG IVPB 08/09-08/11 1:1 Sitter per orders Avoiding benzos and tricyclic antidepressant (per Dr. Minaya) continue Sinement 25-100MG 1 TAB TID Please clarify which diagnosis is most appropriate: [ ] Toxic metabolic encephalopathy due to benzos and tricyclic antidepressants [ ] Confusion and agitation due to Parkinsons disease, (specify mild, moderate or severe) [ ] Other (please specify) [ ] Unable to determine (Template Last Revised: November 2020) Toxic metabolic encephalopathy due to benzos and tricyclic antidepressants MTDD
[2022-08-13 17:02] LABS: Glucose,Whole Blood 167 mg/dL (70-110)
--- NOTE | 2022-08-13 18:14 | P.PN ---
Subjective Progress Note Date: 08/13/22 This is a pleasant 71 years old male with multiple medical problems as below. Patient presents because of altered mental state. Patient was in rehab. This morning he was at the edge of the bed, fully awake and alert, however patient has difficulty expressing himself, looks like he has expressive aphasia. He could not tell me he is in the hospital while once he is reminded he is in the hospital he could say it is [facility], also has difficulty in telling the date and person. He could not tell why he came to the hospital but he says he feels generally weak. He denies chest pain or dyspnea or cough and. However patient is poor historian and could not provide full information. Patient was recently discharged from the hospital yesterday. She's been followed by surgery for fecal impaction and ileus. Also his been followed by pulmonary team and infectious disease team for UTI during her last admission Vitals are stable since admission. Labs reviewed. Has unremarkable CBC, INR, BMP and liver enzymes. Because is 156-289. Urinalysis is not suspicious of infection however shows glucosuria. Urine drug screen is positive for tricyclic antidepressant and benzodiazepines Chest x-ray: Posterior basilar acute infiltrate and/or atelectasis CT of the brain showing no acute change. Admission received IV fluids and started on cefepime and Zithromax. On 08/13/2022 patient was seen and examined on the medical floor he is alert responsive in no apparent distress he is having significant difficulty finding words and answering questions otherwise he denies any complaints, his nurse states that he has very limited oral intake, and he has been refusing all his medications, he is asking to be sent home, at this time input from neurology and psychiatry reviewed, physical therapy and occupational therapy consulted, will monitor progress closely Objective - Vital Signs Vital signs: Vital Signs Temp 98.3 F 08/13/22 14:00 Pulse 96 08/13/22 14:00 Resp 16 08/13/22 14:00 BP 144/75 08/13/22 14:00 Pulse Ox 97 08/13/22 14:00 FiO2 Intake & Output 08/12/22 08/13/22 08/13/22 18:59 06:59 18:59 Intake Total 325 0 Output Total 450 750 200 Balance -125 -750 -200 Intake: Intake, IV Titration 325 Amount Cefepime 2 gm In Sodium 100 Chloride 0.9% 100 ml @ 25 mls/hr IVPB Q8H [facility] Rx#: [id number] Sodium Chloride 0.9% 1, 225 000 ml @ 75 mls/hr IV . [id number] [facility] Rx#:[id number] Oral 0 Output: Urine 450 750 200 Uretheral (Stanley) 550 Other: Voiding Method Indwelling Catheter Indwelling Catheter # Bowel Movements 1 0 - Exam GENERAL: The patient is alert and oriented x3, not in any acute distress. Well developed, well nourished. HEENT: Pupils are round and equally reacting to light. EOMI. No scleral icterus. No conjunctival pallor. Normocephalic, atraumatic. No pharyngeal erythema. No thyromegaly. CARDIOVASCULAR: S1 and S2 present. No murmurs, rubs, or gallops. PULMONARY: Chest is clear to auscultation, no wheezing or crackles. ABDOMEN: Soft, nontender, nondistended, normoactive bowel sounds. No palpable organomegaly. MUSCULOSKELETAL: No joint swelling or deformity. EXTREMITIES: No cyanosis, clubbing, or pedal edema. NEUROLOGICAL: Gross neurological examination did not reveal any focal deficits. - Labs CBC & Chem 7: 08/12/22 06:29 08/12/22 06:29 Labs: Abnormal Lab Results - Last 24 Hours (Table) 08/12/22 08/12/22 08/13/22 Range/Units 19:15 20:16 06:34 POC Glucose (mg/dL) 286 H 273 H 199 H (70-110) mg/dL 08/13/22 08/13/22 Range/Units 11:34 17:00 POC Glucose (mg/dL) 124 H 167 H (70-110) mg/dL Microbiology - Last 24 Hours (Table) 08/09/22 17:11 Blood Culture - Preliminary Blood No Growth after 72 hours 08/09/22 17:11 Blood Culture - Preliminary Blood No Growth after 72 hours Assessment and Plan Plan: New posterior basilar pneumonia. Rule out aspiration pneumonia Patient history of UTI Recent history of vitamin B12 deficiency. Was 187 on 07/29/2022 Recent falls Altered mental status, could be toxic metabolic encephalopathy. Ruled out other neurological causes Acute recurrent retention status post Stanley catheter Diabetes mellitus Hypertension History of seizure History of cataract History of Parkinson disease Continue with antibiotic. Currently on cefepime and Zithromax. Continue gentle hydration Neurology and psychiatry consult Check procalcitonin. Continue with IV hydration currently 75 mL/h Continue with Lamictal Check swallow evaluation Continue with Stanley catheter. Add Flomax Labs and medication were reviewed.. Continue same treatment. Continue with symptomatic treatment. Resume home medication. Monitor labs and vitals. DVT and GI prophylaxis. Further recommendations as per clinical course of the patient DVT prophylaxis: Subcutaneous heparin GI Prophylaxis: Ppx PT/OT: Pending Prognosis is guarded
--- NOTE | 2022-08-13 18:30 | P.PN ---
Progress Note - Text Progress Note Date: 08/13/22 Today I spoke with Mrs. Tammi Key, of patient [facility] per her request I reviewed with her patient condition and progress I reviewed with the recommendation from neurology and psychiatry Patient does not want to go to rehab any more and his does not want him to go back to [facility] or any rehab unit She is willing to take him home with home care when he is medically stable Will continue updating Mrs. Key over the next few days and hopefully patient can go back home in the next 2-3 days
[2022-08-13 19:23] LABS: Glucose,Whole Blood 217 mg/dL (70-110)
[2022-08-13] MEDS: INSULIN DETEMIR (LEVEMIR) 100 UNIT/ML SYR SQ SCH (22:42)
[2022-08-13] MEDS: VALPROIC ACID ORAL SOLN 250 MG/5 ML CUP PO SCH (22:47)
[2022-08-14] MEDS: HEPARIN SODIUM,PORCINE/PF 5,000 UNIT/0.5 ML SYRINGE SQ SCH ×3 (01:28→07:30)
[2022-08-14] MEDS: PANTOPRAZOLE 40 MG TABLET PO SCH (06:00)
[2022-08-14] MEDS: SODIUM CHLORIDE 0.9% 1,000 ML IV SCH ×2 (06:01→07:31)
[2022-08-14 06:27] LABS: Glucose,Whole Blood 300 mg/dL (70-110)
[2022-08-14] MEDS: INSULIN ASPART (NovoLOG) 100 UNIT/ML VIAL SQ SCH ×3 (06:49→16:49)
[2022-08-14] MEDS: lamoTRIgine 100 MG TAB PO SCH ×2 (07:29→07:31)
[2022-08-14] MEDS: LACTULOSE 20 GM/30 ML CUP PO SCH ×2 (07:29→07:30)
[2022-08-14] MEDS: polyethylene glycoL 3350 17 GM POWD.PACK PO SCH (07:29)
[2022-08-14] MEDS: CARBIDOPA-LEVODOPA 25-100 MG 1 EACH TAB PO SCH ×3 (07:29→11:27)
[2022-08-14] MEDS: lisinopriL 5 MG TAB PO SCH (07:29)
[2022-08-14] MEDS: TAMSULOSIN 0.4 MG CAP.ER.24H PO SCH (07:29)
[2022-08-14] MEDS: CEFEPIME 2 GM in SODIUM CHLORIDE 0.9% 100 ML IVPB SCH ×2 (07:30→07:31)
[2022-08-14] MEDS: CYANOCOBALAMIN 500 MCG TAB PO SCH (07:30)
[2022-08-14] MEDS: ASPIRIN 325 MG TAB PO SCH (07:31)
[2022-08-14] MEDS: MULTIVITAMINS, THERA 1 EACH TAB PO SCH (07:31)
[2022-08-14 11:24] LABS: Glucose,Whole Blood 88 mg/dL (70-110)
--- NOTE | 2022-08-14 11:34 | P.PN ---
Progress Note - Text Progress Note Date: 08/14/22 Interval History: Patient was seen bedside. The patient is currently calm and cooperative with staff and was able to ambulate with assistance on the medical floor. He is currently alert and oriented to place only. He is unable to recall his name when asked by this provider. He is unable to identify the date. He is not endorsing any suicidal or homicidal ideation. He reports no auditory or visual hallucinations. As per discussion with the patient's nurse, he continues to refuse any medications however has had a decrease in his behaviors. Mental Status Exam: General Appearance: Patient appears to be stated age is alert, directable, and cooperative today. Fair hygiene and grooming. Behavior: Patient displays normal psychomotor activity, if not a little bit slow. Eye contact is appropriate. Speech: Patient's speech is nonspontaneous, monotone, and low in volume. Mood/Affect: Mood is described as "doing fine." Affect is constricted but calm. Suicidality/Homicidality: Patient denies any suicidal or homicidal ideation. Perceptions: Patient denies any auditory or visual hallucinations. Though content/process: Appears disorganized and unamenable to redirection. Memory and concentration: AOX2. Concentration grossly poor. Judgment and insight: poor Vital Signs Temp 98.0 F 08/14/22 07:32 Pulse 90 08/14/22 07:32 Resp 17 08/14/22 07:32 BP 129/72 08/14/22 07:32 Pulse Ox 97 08/14/22 09:04 FiO2 Intake & Output 08/13/22 08/14/22 08/14/22 18:59 06:59 18:59 Output Total 200 700 Balance -200 -700 Output: Urine 200 700 Other: Voiding Method Indwelling Catheter Indwelling Catheter Indwelling Catheter Laboratory Results - Last 24 Hours 08/13/22 08/13/22 08/13/22 11:34 17:00 19:22 POC Glucose (mg/dL) 124 H 167 H 217 H POC Glu Peeled Potato Inspector Toshia Machado Sharay Murdick, Paige 08/14/22 08/14/22 06:26 11:23 POC Glucose (mg/dL) 300 H 88 POC Glu Peeled Potato Inspector Lisa Gonzalez Leah Assessment Acute delirium- Multifactorial - pneumonia, hospitalization, polypharmacy, anticholinergic medications 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 -Patient DOES NOT have decision making capacity at this time and is unable to reason through and communicate/appreciate the risks, benefits and alternatives to treatment. -Delirium precautions recommended with patient including - avoiding use of narcotics and PHYSICAL DESIGN ENGINEER sedatives, limit anticholinergic medications when possible, frequent re-orientation, minimize use of restraints, open window shades during the day and close them at night -Would recommend the following medication changes/additions: Continue Depakene solution 125 mg daily at bedtime for mood stabilization Continue Haldol 3 mg IM q4H PRN for agitation - EKG reviewed. - Discussed plan with nursing - Continue 1:1 sitter for safety -Psychiatry will continue to follow.
--- NOTE | 2022-08-14 11:55 | P.PN ---
Subjective Progress Note Date: 08/14/22 The patient is seen at bedside and was walking with physical therapy. Per nursing staff he seems more calm and cooperative. Objective - Vital Signs Vital signs: Vital Signs Temp 98.0 F 08/14/22 07:32 Pulse 90 08/14/22 07:32 Resp 17 08/14/22 07:32 BP 129/72 08/14/22 07:32 Pulse Ox 97 08/14/22 09:04 FiO2 Intake & Output 08/13/22 08/14/22 08/14/22 18:59 06:59 18:59 Output Total 200 700 Balance -200 -700 Output: Urine 200 700 Other: Voiding Method Indwelling Catheter Indwelling Catheter Indwelling Catheter - Exam Exam is limited because of his condition/cooperation. NEUROLOGICAL: Limited. Higher mental function: The patient is awake, alert, oriented to self, correctly stated he was in the hospital. He stated the year is 2019. He is somewhat slow to respond and has stuttering. Language is limited in assessment. Has word fi nding difficulty and appears expressive aphasia (old). Cranial nerves: Is tracking throughout the room. No facial weakness. Has hyphonia. Otherwise rest is limited. Motor: The strength is limited because of cooperation. But moving bilateral uppers on his own. Cerebellum: Unable to assess Sensation: Unable to assess. Reflexes (right/left): Unable to assess. Plantars Unable to assess. Some of the workup during this hospital visit consisted of: Patient is afebrile. White blood cell is within normal limits and the rest of the CBC with differential is unremarkable Ammonia level is less than 9. Sodium, calcium, BUN and creatinine is within normal limits. Hemoglobin A1c 7.7. Urine drug seeing is positive for benzos as well as tricyclic antidepressant. Serum alcohol was less than 10. CT of the brain is reported as no acute intracranial hemorrhage or midline shift. Is moderate diffuse age-related cerebral atrophy and moderate chronic small vessel ischemic changes redemonstrated. No significant change from prior. - Labs CBC & Chem 7: 08/12/22 06:29 08/12/22 06:29 Labs: Abnormal Lab Results - Last 24 Hours (Table) 08/13/22 08/13/22 08/14/22 Range/Units 17:00 19:22 06:26 POC Glucose (mg/dL) 167 H 217 H 300 H (70-110) mg/dL Microbiology - Last 24 Hours (Table) 08/09/22 17:11 Blood Culture - Preliminary Blood No Growth after 96 hours 08/09/22 17:11 Blood Culture - Preliminary Blood No Growth after 96 hours Assessment and Plan Assessment: Agitation with confusion seems delirium. 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 Likely Parkinson's disease and has improvement in his symptoms on last admission (beginning of 07/2022) History of nonepileptic seizure and the last episode was about a year ago (was notified due to hypoglycemia by his neurologist) Vitamin B-12 deficiency History of TIA 2020 Diabetes mellitus Plan: Recommend avoiding benzos and tricyclic antidepressant especially in elderly patient which can worsen the confusion and agitation. Pyschiatry has him on Haldol 3mg every 4 hours PRN and Depakote 125mg PO qhs. This does not appear like seizures at it's hard to obtain an EEG because of his cooperation. Patient is continued on his home dose of Sinement 25-100mg 1 tab tid. Psychiatry team is on board. We'll defer the rest of the medical management to primary team. Recommend to follow-up with his neurologist as outpatient within 1-2 weeks. The plan discussed with the patient nurse Otherwise no additional work-up from neurological perspective. Please notify if any further concerns. Time with Patient: Less than 30
[2022-08-14 16:17] LABS: Glucose,Whole Blood 163 mg/dL (70-110)
--- NOTE | 2022-08-14 17:39 | P.PN ---
Subjective Progress Note Date: 08/14/22 This is a pleasant 71 years old male with multiple medical problems as below. Patient presents because of altered mental state. Patient was in rehab. This morning he was at the edge of the bed, fully awake and alert, however patient has difficulty expressing himself, looks like he has expressive aphasia. He could not tell me he is in the hospital while once he is reminded he is in the hospital he could say it is [facility], also has difficulty in telling the date and person. He could not tell why he came to the hospital but he says he feels generally weak. He denies chest pain or dyspnea or cough and. However patient is poor historian and could not provide full information. Patient was recently discharged from the hospital yesterday. She's been followed by surgery for fecal impaction and ileus. Also his been followed by pulmonary team and infectious disease team for UTI during her last admission Vitals are stable since admission. Labs reviewed. Has unremarkable CBC, INR, BMP and liver enzymes. Because is 156-289. Urinalysis is not suspicious of infection however shows glucosuria. Urine drug screen is positive for tricyclic antidepressant and benzodiazepines Chest x-ray: Posterior basilar acute infiltrate and/or atelectasis CT of the brain showing no acute change. Admission received IV fluids and started on cefepime and Zithromax. On 08/13/2022 patient was seen and examined on the medical floor he is alert responsive in no apparent distress he is having significant difficulty finding words and answering questions otherwise he denies any complaints, his nurse states that he has very limited oral intake, and he has been refusing all his medications, he is asking to be sent home, at this time input from neurology and psychiatry reviewed, physical therapy and occupational therapy consulted, will monitor progress closely On 08/14/2022 patient was seen and examined on the medical floor he is alert and oriented 3 in no distress he is sitting up in a chair today and eating his meal there is significant improvement since yesterday his speech is more fluent but not back to normal yet, he denies any fever or chills no headache or dizziness no chest pain no shortness of breath he has occasional cough no nausea or vomiting no abdominal pain no diarrhea and no urinary symptoms Objective - Vital Signs Vital signs: Vital Signs Temp 98.0 F 08/14/22 07:32 Pulse 90 08/14/22 07:32 Resp 17 08/14/22 07:32 BP 129/72 08/14/22 07:32 Pulse Ox 97 08/14/22 09:04 FiO2 Intake & Output 08/13/22 08/14/22 08/14/22 18:59 06:59 18:59 Output Total 200 700 Balance -200 -700 Output: Urine 200 700 Other: Voiding Method Indwelling Catheter Indwelling Catheter Indwelling Catheter - Exam GENERAL: The patient is alert and oriented x3, not in any acute distress. Well developed, well nourished. HEENT: Pupils are round and equally reacting to light. EOMI. No scleral icterus. No conjunctival pallor. Normocephalic, atraumatic. No pharyngeal erythema. No thyromegaly. CARDIOVASCULAR: S1 and S2 present. No murmurs, rubs, or gallops. PULMONARY: Chest is clear to auscultation, no wheezing or crackles. ABDOMEN: Soft, nontender, nondistended, normoactive bowel sounds. No palpable organomegaly. MUSCULOSKELETAL: No joint swelling or deformity. EXTREMITIES: No cyanosis, clubbing, or pedal edema. NEUROLOGICAL: Gross neurological examination did not reveal any focal deficits. - Labs CBC & Chem 7: 08/12/22 06:29 08/12/22 06:29 Labs: Abnormal Lab Results - Last 24 Hours (Table) 08/13/22 08/13/22 08/13/22 Range/Units 11:34 17:00 19:22 POC Glucose (mg/dL) 124 H 167 H 217 H (70-110) mg/dL 08/14/22 Range/Units 06:26 POC Glucose (mg/dL) 300 H (70-110) mg/dL Microbiology - Last 24 Hours (Table) 08/09/22 17:11 Blood Culture - Preliminary Blood No Growth after 96 hours 08/09/22 17:11 Blood Culture - Preliminary Blood No Growth after 96 hours Assessment and Plan Plan: New posterior basilar pneumonia. Rule out aspiration pneumonia Patient history of UTI Recent history of vitamin B12 deficiency. Was 187 on 07/29/2022 Recent falls Altered mental status, could be toxic metabolic encephalopathy. Ruled out other neurological causes Acute recurrent retention status post Stanley catheter Diabetes mellitus Hypertension History of seizure History of cataract History of Parkinson disease Continue with antibiotic. Currently on cefepime and Zithromax. Continue gentle hydration Neurology and psychiatry consult Check procalcitonin. Continue with IV hydration currently 75 mL/h Continue with Lamictal Check swallow evaluation Continue with Stanley catheter. Add Flomax Labs and medication were reviewed.. Continue same treatment. Continue with symptomatic treatment. Resume home medication. Monitor labs and vitals. DVT and GI prophylaxis. Further recommendations as per clinical course of the patient DVT prophylaxis: Subcutaneous heparin GI Prophylaxis: Ppx PT/OT: Pending Prognosis is guarded
[2022-08-14] MEDS: INSULIN DETEMIR (LEVEMIR) 100 UNIT/ML SYR SQ SCH (21:37)
[2022-08-14] MEDS: VALPROIC ACID ORAL SOLN 250 MG/5 ML CUP PO SCH (21:37)
[2022-08-14 21:45] LABS: Glucose,Whole Blood 263 mg/dL (70-110)
[2022-08-15] MEDS: HEPARIN SODIUM,PORCINE/PF 5,000 UNIT/0.5 ML SYRINGE SQ SCH ×4 (00:29→23:39)
[2022-08-15] MEDS: CEFEPIME 2 GM in SODIUM CHLORIDE 0.9% 100 ML IVPB SCH ×3 (04:02→19:02)
[2022-08-15 06:17] LABS: Glucose,Whole Blood 182 mg/dL (70-110)
[2022-08-15] MEDS: PANTOPRAZOLE 40 MG TABLET PO SCH ×2 (06:29→09:48)
[2022-08-15] MEDS: INSULIN ASPART (NovoLOG) 100 UNIT/ML VIAL SQ SCH ×3 (08:25→17:13)
[2022-08-15] MEDS: TAMSULOSIN 0.4 MG CAP.ER.24H PO SCH (09:48)
[2022-08-15] MEDS: lamoTRIgine 100 MG TAB PO SCH ×2 (09:48→17:13)
[2022-08-15] MEDS: CYANOCOBALAMIN 500 MCG TAB PO SCH (09:48)
[2022-08-15] MEDS: polyethylene glycoL 3350 17 GM POWD.PACK PO SCH (09:48)
[2022-08-15] MEDS: lisinopriL 5 MG TAB PO SCH (09:49)
[2022-08-15] MEDS: CARBIDOPA-LEVODOPA 25-100 MG 1 EACH TAB PO SCH ×3 (09:49→17:13)
[2022-08-15] MEDS: ASPIRIN 325 MG TAB PO SCH (09:49)
[2022-08-15] MEDS: LACTULOSE 20 GM/30 ML CUP PO SCH ×2 (09:49→11:45)
[2022-08-15 11:26] LABS: Glucose,Whole Blood 123 mg/dL (70-110)
[2022-08-15] MEDS: SODIUM CHLORIDE 0.9% 1,000 ML IV SCH ×2 (11:46→21:42)
[2022-08-15 12:38] VITALS: BMI 23.1
--- NOTE | 2022-08-15 13:24 | P.PN ---
Progress Note - Text Progress Note Date: 08/15/22 Interval History: Patient was seen bedside. The patient has been noted by staff to be minimal and his responses and usually replies in one-word answers. The patient however is not endorsing any suicidal or homicidal ideation, intention, and/or plan. He reports no auditory or visual hallucinations. He continues to be intermittently adherent with any medications prescribed. He is alert and oriented to place and person but not to time or date. Patient has not taken any Depakote. He has been noted by staff to not eat. At his bedside is his breakfast which was untouched. Mental Status Exam: General Appearance: Patient appears to be stated age is alert, directable, and cooperative today. Fair hygiene and grooming. Behavior: Patient displays slow psychomotor activity. Eye contact is appropriate. Speech: Patient's speech is nonspontaneous, monotone, and low in volume. One- word replies. Mood/Affect: Mood is described as "okay" Affect is constricted but calm. Suicidality/Homicidality: Patient denies any suicidal or homicidal ideation. Perceptions: Patient denies any auditory or visual hallucinations. Though content/process: Abrupt cannot be fully appreciated or analyzed as the patient replies with one-word replies. concrete. Memory and concentration: AOX2. Person and place. Concentration grossly poor. Judgment and insight: poor Vital Signs Temp 97.8 F 08/15/22 07:25 Pulse 88 08/15/22 07:25 Resp 16 08/15/22 07:25 BP 127/68 08/15/22 07:25 Pulse Ox 97 08/15/22 07:25 FiO2 Intake & Output 08/14/22 08/15/22 08/15/22 18:59 06:59 18:59 Output Total 200 650 Balance -200 -650 Weight 73.074 kg Output: Urine 200 650 Other: Voiding Method Indwelling Catheter Indwelling Catheter Indwelling Catheter Laboratory Results - Last 24 Hours 08/14/22 08/14/22 08/15/22 16:15 21:44 06:16 POC Glucose (mg/dL) 163 H 263 H 182 H POC Glu Asset Protection Agent ID Bessy Oviedo Jill, A Howard, Jill, A 08/15/22 11:25 POC Glucose (mg/dL) 123 H POC Glu Asset Protection Agent ID Inna Roman Assessment Acute delirium- Multifactorial, appears resolving - pneumonia, hospitalization, polypharmacy, anticholinergic medications 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 -Patient DOES NOT have decision making capacity at this time and is unable to reason through and communicate/appreciate the risks, benefits and alternatives to treatment. -Delirium precautions recommended with patient including - avoiding use of narcotics and BAIL BONDING AGENT sedatives, limit anticholinergic medications when possible, frequent re-orientation, minimize use of restraints, open window shades during the day and close them at night -Would recommend the following medication changes/additions: Discontinue Depakene solution as the patient nonadherent anyways. We will start Remeron 7.5 mg by mouth at bedtime for appetite stimulation Continue Haldol 3 mg IM q4H PRN for agitation - Discussed plan with nursing - Continue 1:1 sitter for safety -Psychiatry will loosely follow at this time. Please call us or reconsult us if necessary should the patient displayed any acute changes in behavior or agitation.
--- NOTE | 2022-08-15 13:45 | P.PN ---
Subjective Progress Note Date: 08/15/22 This is a pleasant 71 years old male with multiple medical problems as below. Patient presents because of altered mental state. Patient was in rehab. This morning he was at the edge of the bed, fully awake and alert, however patient has difficulty expressing himself, looks like he has expressive aphasia. He could not tell me he is in the hospital while once he is reminded he is in the hospital he could say it is [facility], also has difficulty in telling the date and person. He could not tell why he came to the hospital but he says he feels generally weak. He denies chest pain or dyspnea or cough and. However patient is poor historian and could not provide full information. Patient was recently discharged from the hospital yesterday. She's been followed by surgery for fecal impaction and ileus. Also his been followed by pulmonary team and infectious disease team for UTI during her last admission Vitals are stable since admission. Labs reviewed. Has unremarkable CBC, INR, BMP and liver enzymes. Because is 156-289. Urinalysis is not suspicious of infection however shows glucosuria. Urine drug screen is positive for tricyclic antidepressant and benzodiazepines Chest x-ray: Posterior basilar acute infiltrate and/or atelectasis CT of the brain showing no acute change. Admission received IV fluids and started on cefepime and Zithromax. On 08/13/2022 patient was seen and examined on the medical floor he is alert responsive in no apparent distress he is having significant difficulty finding words and answering questions otherwise he denies any complaints, his nurse states that he has very limited oral intake, and he has been refusing all his medications, he is asking to be sent home, at this time input from neurology and psychiatry reviewed, physical therapy and occupational therapy consulted, will monitor progress closely On 08/14/2022 patient was seen and examined on the medical floor he is alert and oriented 3 in no distress he is sitting up in a chair today and eating his meal there is significant improvement since yesterday his speech is more fluent but not back to normal yet, he denies any fever or chills no headache or dizziness no chest pain no shortness of breath he has occasional cough no nausea or vomiting no abdominal pain no diarrhea and no urinary symptoms On 08/15/2022 patient is alert and oriented 3. Patient is currently sitting up onset about evening meal. Patient denies chest pain or shortness breath. Patient denies nausea vomiting or diarrhea. Denies any urinary burning or frequency neurology and psychiatry services are following. Patient is maintained on Haldol when necessary. Objective - Vital Signs Vital signs: Vital Signs Temp 97.8 F 08/15/22 07:25 Pulse 88 08/15/22 07:25 Resp 16 08/15/22 07:25 BP 127/68 08/15/22 07:25 Pulse Ox 97 08/15/22 07:25 FiO2 Intake & Output 08/14/22 08/15/22 08/15/22 18:59 06:59 18:59 Output Total 200 650 Balance -200 -650 Weight 73.074 kg Output: Urine 200 650 Other: Voiding Method Indwelling Catheter Indwelling Catheter Indwelling Catheter - Exam GENERAL: The patient is alert and oriented x3, not in any acute distress. Well developed, well nourished. HEENT: Pupils are round and equally reacting to light. EOMI. No scleral icterus. No conjunctival pallor. Normocephalic, atraumatic. No pharyngeal erythema. No thyromegaly. CARDIOVASCULAR: S1 and S2 present. No murmurs, rubs, or gallops. PULMONARY: Chest is clear to auscultation, no wheezing or crackles. ABDOMEN: Soft, nontender, nondistended, normoactive bowel sounds. No palpable organomegaly. MUSCULOSKELETAL: No joint swelling or deformity. EXTREMITIES: No cyanosis, clubbing, or pedal edema. NEUROLOGICAL: Gross neurological examination did not reveal any focal deficits. - Labs CBC & Chem 7: 08/12/22 06:29 08/12/22 06:29 Labs: Abnormal Lab Results - Last 24 Hours (Table) 08/14/22 08/14/22 08/15/22 Range/Units 16:15 21:44 06:16 POC Glucose (mg/dL) 163 H 263 H 182 H (70-110) mg/dL 08/15/22 Range/Units 11:25 POC Glucose (mg/dL) 123 H (70-110) mg/dL Microbiology - Last 24 Hours (Table) 08/09/22 17:11 Blood Culture - Preliminary Blood No Growth after 120 hours 08/09/22 17:11 Blood Culture - Preliminary Blood No Growth after 120 hours Assessment and Plan Plan: New posterior basilar pneumonia. Rule out aspiration pneumonia Patient history of UTI Recent history of vitamin B12 deficiency. Was 187 on 07/29/2022 Recent falls Altered mental status, could be toxic metabolic encephalopathy. Ruled out other neurological causes Acute recurrent retention status post Stanley catheter Diabetes mellitus Hypertension History of seizure History of cataract History of Parkinson disease Continue with antibiotic. Currently on cefepime and Zithromax. Continue gentle hydration Neurology and psychiatry consult Check procalcitonin. Continue with IV hydration currently 75 mL/h Continue with Lamictal Check swallow evaluation Continue with Stanley catheter. Add Flomax Labs and medication were reviewed.. Continue same treatment. Continue with symptomatic treatment. Resume home medication. Monitor labs and vitals. DVT and GI prophylaxis. Further recommendations as per clinical course of the patient DVT prophylaxis: Subcutaneous heparin GI Prophylaxis: Ppx PT/OT: Pending Prognosis is guarded
[2022-08-15 16:47] LABS: Glucose,Whole Blood 186 mg/dL (70-110)
[2022-08-15] MEDS: MULTIVITAMINS, THERA 1 EACH TAB PO SCH (17:13)
[2022-08-15] MEDS: MIRTAZAPINE 15 MG TAB PO SCH (20:48)
[2022-08-15 21:23] LABS: Glucose,Whole Blood 211 mg/dL (70-110)
[2022-08-15] MEDS: INSULIN DETEMIR (LEVEMIR) 100 UNIT/ML SYR SQ SCH (21:41)
[2022-08-16] MEDS: CEFEPIME 2 GM in SODIUM CHLORIDE 0.9% 100 ML IVPB SCH ×3 (03:45→18:44)
[2022-08-16 06:18] LABS: Glucose,Whole Blood 182 mg/dL (70-110)
[2022-08-16] MEDS: INSULIN ASPART (NovoLOG) 100 UNIT/ML VIAL SQ SCH ×3 (08:08→17:08)
[2022-08-16] MEDS: HEPARIN SODIUM,PORCINE/PF 5,000 UNIT/0.5 ML SYRINGE SQ SCH ×3 (08:10→21:55)
[2022-08-16] MEDS: polyethylene glycoL 3350 17 GM POWD.PACK PO SCH (08:10)
[2022-08-16] MEDS: lisinopriL 5 MG TAB PO SCH (08:11)
[2022-08-16] MEDS: CARBIDOPA-LEVODOPA 25-100 MG 1 EACH TAB PO SCH ×3 (08:11→17:07)
[2022-08-16] MEDS: CYANOCOBALAMIN 500 MCG TAB PO SCH (08:11)
[2022-08-16] MEDS: LACTULOSE 20 GM/30 ML CUP PO SCH ×2 (08:11→17:07)
[2022-08-16] MEDS: TAMSULOSIN 0.4 MG CAP.ER.24H PO SCH (08:11)
[2022-08-16] MEDS: lamoTRIgine 100 MG TAB PO SCH ×2 (08:11→17:07)
[2022-08-16] MEDS: SODIUM CHLORIDE 0.9% 1,000 ML IV SCH (10:23)
[2022-08-16 11:25] LABS: Glucose,Whole Blood 142 mg/dL (70-110)
--- NOTE | 2022-08-16 11:32 | P.PN ---
Progress Note - Text Progress Note Date: 08/16/22 Interval History: Patient was seen bedside. The patient has been noted by staff to be minimal and his responses and usually replies in one-word answers. Currently, the patient continues to be what quite flat and responds only in one-word replies. When asked if he ate today, the patient reports "a bit." He is currently denying any suicidal or homicidal ideation, intention, and/or plan. He is not reporting any auditory or visual hallucinations. He denies any paranoia or other delusions. He is currently alert and oriented to self and place. He has not been noted to display any agitated behavior and has been more adherent with prescribed medications. However, the patient continues to refuse any psychiatric medications that were prescribed. Mental Status Exam: General Appearance: Patient appears to be stated age is alert, directable, and cooperative today. Fair hygiene and grooming. Behavior: Patient displays slow psychomotor activity. Eye contact is appropriate. Speech: Patient's speech is nonspontaneous, monotone, and low in volume. One- word replies. Mood/Affect: Mood is described as "okay" Affect is flat but calm. Suicidality/Homicidality: Patient denies any suicidal or homicidal ideation. Perceptions: Patient denies any auditory or visual hallucinations. Though content/process: Abrupt cannot be fully appreciated or analyzed as the patient replies with one-word replies. concrete. Memory and concentration: AOX2. Person and place. Concentration grossly poor. Judgment and insight: poor Vital Signs Temp 97.9 F 08/16/22 08:00 Pulse 86 08/16/22 08:00 Resp 18 08/16/22 08:00 BP 138/77 08/16/22 08:00 Pulse Ox 96 08/16/22 08:00 FiO2 Intake & Output 08/15/22 08/16/22 08/16/22 18:59 06:59 18:59 Intake Total 711 Output Total 320 Balance -320 711 Weight 73.074 kg Intake: Oral 711 Output: Urine 320 Other: Voiding Method Indwelling Catheter Indwelling Catheter Indwelling Catheter # Voids 2 # Bowel Movements 0 1 Laboratory Results - Last 24 Hours 08/15/22 08/15/22 08/16/22 16:45 21:08 06:09 POC Glucose (mg/dL) 186 H 211 H 182 H POC Glu [employer] ID Inna Roman Wilmersuzi Mai GrimesdianneMai archer 08/16/22 11:24 POC Glucose (mg/dL) 142 H POC Glu [employer]er ID Calros Toshia Assessment Acute delirium- Multifactorial, appears resolving - pneumonia, hospitalization, polypharmacy, anticholinergic medications 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 -Patient DOES NOT have decision making capacity at this time and is unable to reason through and communicate/appreciate the risks, benefits and alternatives to treatment. -Delirium precautions recommended with patient including - avoiding use of narcotics and [employer] SUPER[employer]OR sedatives, limit anticholinergic medications when possible, frequent re-orientation, minimize use of restraints, open window shades during the day and close them at night -Would recommend the following medication changes/additions: Continue Remeron 7.5 mg daily at bedtime for appetite stimulation Continue Haldol 3 mg IM q4H PRN for agitation - Discussed plan with nursing -Psychiatry will sign off at this time. Please reconsult us or contact us for any questions or concerns.
--- NOTE | 2022-08-16 14:25 | P.PN ---
Subjective Progress Note Date: 08/16/22 This is a pleasant 71 years old male with multiple medical problems as below. Patient presents because of altered mental state. Patient was in rehab. This morning he was at the edge of the bed, fully awake and alert, however patient has difficulty expressing himself, looks like he has expressive aphasia. He could not tell me he is in the hospital while once he is reminded he is in the hospital he could say it is [facility], also has difficulty in telling the date and person. He could not tell why he came to the hospital but he says he feels generally weak. He denies chest pain or dyspnea or cough and. However patient is poor historian and could not provide full information. Patient was recently discharged from the hospital yesterday. She's been followed by surgery for fecal impaction and ileus. Also his been followed by pulmonary team and infectious disease team for UTI during her last admission Vitals are stable since admission. Labs reviewed. Has unremarkable CBC, INR, BMP and liver enzymes. Because is 156-289. Urinalysis is not suspicious of infection however shows glucosuria. Urine drug screen is positive for tricyclic antidepressant and benzodiazepines Chest x-ray: Posterior basilar acute infiltrate and/or atelectasis CT of the brain showing no acute change. Admission received IV fluids and started on cefepime and Zithromax. On 08/13/2022 patient was seen and examined on the medical floor he is alert responsive in no apparent distress he is having significant difficulty finding words and answering questions otherwise he denies any complaints, his nurse states that he has very limited oral intake, and he has been refusing all his medications, he is asking to be sent home, at this time input from neurology and psychiatry reviewed, physical therapy and occupational therapy consulted, will monitor progress closely On 08/14/2022 patient was seen and examined on the medical floor he is alert and oriented 3 in no distress he is sitting up in a chair today and eating his meal there is significant improvement since yesterday his speech is more fluent but not back to normal yet, he denies any fever or chills no headache or dizziness no chest pain no shortness of breath he has occasional cough no nausea or vomiting no abdominal pain no diarrhea and no urinary symptoms On 08/15/2022 patient was seen and examined on the medical floor he is alert and oriented 3 in no distress, dietitian reporting less then 25% intake of his meals nursing are stating that patient has been refusing his pills he denies any fever or chills no headache or dizziness no chest pain no shortness of breath he has occasional cough no nausea or vomiting no abdominal pain no diarrhea and no urinary symptoms. Patient was counseled in length in regards to taking his pills and eating more otherwise possibility of PEG tube was discussed. At this time will continue to monitor closely. On 08/16/2022 patient was seen and examined on the medical floor his was in the room today patient is still refusing to take some of his medication and eating very little he was counseled in length again in that regard otherwise he denies any complaints there is no fever or chills no headache or dizziness no chest pain no shortness of breath no cough no nausea or vomiting no abdominal pa in no diarrhea and no urinary symptoms Objective - Vital Signs Vital signs: Vital Signs Temp 97.9 F 08/16/22 08:00 Pulse 86 08/16/22 08:00 Resp 18 08/16/22 08:00 BP 138/77 08/16/22 08:00 Pulse Ox 96 08/16/22 08:00 FiO2 Intake & Output 08/15/22 08/16/22 08/16/22 18:59 06:59 18:59 Intake Total 711 Output Total 320 Balance -320 711 Weight 73.074 kg Intake: Oral 711 Output: Urine 320 Other: Voiding Method Indwelling Catheter Indwelling Catheter # Voids 2 # Bowel Movements 0 1 - Exam GENERAL: The patient is alert and oriented x3, not in any acute distress. Well developed, well nourished. HEENT: Pupils are round and equally reacting to light. EOMI. No scleral icterus. No conjunctival pallor. Normocephalic, atraumatic. No pharyngeal erythema. No thyromegaly. CARDIOVASCULAR: S1 and S2 present. No murmurs, rubs, or gallops. PULMONARY: Chest is clear to auscultation, no wheezing or crackles. ABDOMEN: Soft, nontender, nondistended, normoactive bowel sounds. No palpable organomegaly. MUSCULOSKELETAL: No joint swelling or deformity. EXTREMITIES: No cyanosis, clubbing, or pedal edema. NEUROLOGICAL: Gross neurological examination did not reveal any focal deficits. - Labs CBC & Chem 7: 08/12/22 06:29 08/12/22 06:29 Labs: Abnormal Lab Results - Last 24 Hours (Table) 08/15/22 08/15/22 08/15/22 Range/Units 11:25 16:45 21:08 POC Glucose (mg/dL) 123 H 186 H 211 H (70-110) mg/dL 08/16/22 Range/Units 06:09 POC Glucose (mg/dL) 182 H (70-110) mg/dL Microbiology - Last 24 Hours (Table) 08/09/22 17:11 Blood Culture - Final Blood No Growth after 144 hours 08/09/22 17:11 Blood Culture - Final Blood No Growth after 144 hours Assessment and Plan Plan: New posterior basilar pneumonia. Rule out aspiration pneumonia Patient history of UTI Recent history of vitamin B12 deficiency. Was 187 on 07/29/2022 Recent falls Altered mental status, could be toxic metabolic encephalopathy. Ruled out other neurological causes Acute recurrent retention status post Stanley catheter Diabetes mellitus Hypertension History of seizure History of cataract History of Parkinson disease Continue with antibiotic. Currently on cefepime and Zithromax. Continue gentle hydration Neurology and psychiatry consult Check procalcitonin. Continue with IV hydration currently 75 mL/h Continue with Lamictal Check swallow evaluation Continue with Stalney catheter. Add Flomax Labs and medication were reviewed.. Continue same treatment. Continue with symptomatic treatment. Resume home medication. Monitor labs and vitals. DVT and GI prophylaxis. Further recommendations as per clinical course of the patient DVT prophylaxis: Subcutaneous heparin GI Prophylaxis: Ppx PT/OT: Pending Prognosis is guarded
--- NOTE | 2022-08-16 14:25 | P.PN ---
Subjective Progress Note Date: 08/15/22 This is a pleasant 71 years old male with multiple medical problems as below. Patient presents because of altered mental state. Patient was in rehab. This morning he was at the edge of the bed, fully awake and alert, however patient has difficulty expressing himself, looks like he has expressive aphasia. He could not tell me he is in the hospital while once he is reminded he is in the hospital he could say it is [facility], also has difficulty in telling the date and person. He could not tell why he came to the hospital but he says he feels generally weak. He denies chest pain or dyspnea or cough and. However patient is poor historian and could not provide full information. Patient was recently discharged from the hospital yesterday. She's been followed by surgery for fecal impaction and ileus. Also his been followed by pulmonary team and infectious disease team for UTI during her last admission Vitals are stable since admission. Labs reviewed. Has unremarkable CBC, INR, BMP and liver enzymes. Because is 156-289. Urinalysis is not suspicious of infection however shows glucosuria. Urine drug screen is positive for tricyclic antidepressant and benzodiazepines Chest x-ray: Posterior basilar acute infiltrate and/or atelectasis CT of the brain showing no acute change. Admission received IV fluids and started on cefepime and Zithromax. On 08/13/2022 patient was seen and examined on the medical floor he is alert responsive in no apparent distress he is having significant difficulty finding words and answering questions otherwise he denies any complaints, his nurse states that he has very limited oral intake, and he has been refusing all his medications, he is asking to be sent home, at this time input from neurology and psychiatry reviewed, physical therapy and occupational therapy consulted, will monitor progress closely On 08/14/2022 patient was seen and examined on the medical floor he is alert and oriented 3 in no distress he is sitting up in a chair today and eating his meal there is significant improvement since yesterday his speech is more fluent but not back to normal yet, he denies any fever or chills no headache or dizziness no chest pain no shortness of breath he has occasional cough no nausea or vomiting no abdominal pain no diarrhea and no urinary symptoms On 08/15/2022 patient was seen and examined on the medical floor he is alert and oriented 3 in no distress, dietitian reporting less then 25% intake of his meals nursing are stating that patient has been refusing his pills he denies any fever or chills no headache or dizziness no chest pain no shortness of breath he has occasional cough no nausea or vomiting no abdominal pain no diarrhea and no urinary symptoms. Patient was counseled in length in regards to taking his pills and eating more otherwise possibility of PEG tube was discussed. At this time will continue to monitor closely Objective - Vital Signs Vital signs: Vital Signs Temp 97.8 F 08/15/22 07:25 Pulse 88 08/15/22 07:25 Resp 16 08/15/22 07:25 BP 127/68 08/15/22 07:25 Pulse Ox 97 08/15/22 07:25 FiO2 Intake & Output 08/14/22 08/15/22 08/15/22 18:59 06:59 18:59 Output Total 200 650 Balance -200 -650 Output: Urine 200 650 Other: Voiding Method Indwelling Catheter Indwelling Catheter Indwelling Catheter - Exam GENERAL: The patient is alert and oriented x3, not in any acute distress. Well developed, well nourished. HEENT: Pupils are round and equally reacting to light. EOMI. No scleral icterus. No conjunctival pallor. Normocephalic, atraumatic. No pharyngeal erythema. No thyromegaly. CARDIOVASCULAR: S1 and S2 present. No murmurs, rubs, or gallops. PULMONARY: Chest is clear to auscultation, no wheezing or crackles. ABDOMEN: Soft, nontender, nondistended, normoactive bowel sounds. No palpable organomegaly. MUSCULOSKELETAL: No joint swelling or deformity. EXTREMITIES: No cyanosis, clubbing, or pedal edema. NEUROLOGICAL: Gross neurological examination did not reveal any focal deficits. - Labs CBC & Chem 7: 08/12/22 06:29 08/12/22 06:29 Labs: Abnormal Lab Results - Last 24 Hours (Table) 08/14/22 08/14/22 08/15/22 Range/Units 16:15 21:44 06:16 POC Glucose (mg/dL) 163 H 263 H 182 H (70-110) mg/dL Microbiology - Last 24 Hours (Table) 08/09/22 17:11 Blood Culture - Preliminary Blood No Growth after 120 hours 08/09/22 17:11 Blood Culture - Preliminary Blood No Growth after 120 hours Assessment and Plan Plan: New posterior basilar pneumonia. Rule out aspiration pneumonia Patient history of UTI Recent history of vitamin B12 deficiency. Was 187 on 07/29/2022 Recent falls Altered mental status, could be toxic metabolic encephalopathy. Ruled out other neurological causes Acute recurrent retention status post Stanley catheter Diabetes mellitus Hypertension History of seizure History of cataract History of Parkinson disease Continue with antibiotic. Currently on cefepime and Zithromax. Continue gentle hydration Neurology and psychiatry consult Check procalcitonin. Continue with IV hydration currently 75 mL/h Continue with Lamictal Check swallow evaluation Continue with Stanley catheter. Add Flomax Labs and medication were reviewed.. Continue same treatment. Continue with symptomatic treatment. Resume home medication. Monitor labs and vitals. DVT and GI prophylaxis. Further recommendations as per clinical course of the patient DVT prophylaxis: Subcutaneous heparin GI Prophylaxis: Ppx PT/OT: Pending Prognosis is guarded
[2022-08-16 16:43] LABS: Glucose,Whole Blood 173 mg/dL (70-110)
[2022-08-16] MEDS: MULTIVITAMINS, THERA 1 EACH TAB PO SCH (17:07)
[2022-08-16] MEDS: ASPIRIN 325 MG TAB PO SCH (17:07)
[2022-08-16] MEDS ORDERED: HYDROcodone/APAP 5-325MG 1 EACH TAB PO PRN (19:59)
[2022-08-16] MEDS: MIRTAZAPINE 15 MG TAB PO SCH (20:18)
[2022-08-16 21:47] LABS: Glucose,Whole Blood 166 mg/dL (70-110)
[2022-08-16] MEDS: INSULIN DETEMIR (LEVEMIR) 100 UNIT/ML SYR SQ SCH (21:50)
[2022-08-17] MEDS: SODIUM CHLORIDE 0.9% 1,000 ML IV SCH ×2 (01:26→12:11)
[2022-08-17] MEDS: CEFEPIME 2 GM in SODIUM CHLORIDE 0.9% 100 ML IVPB SCH (01:27)
[2022-08-17] MEDS: PANTOPRAZOLE 40 MG TABLET PO SCH (06:44)
[2022-08-17 07:12] LABS: Glucose,Whole Blood 118 mg/dL (70-110)
[2022-08-17] MEDS: INSULIN ASPART (NovoLOG) 100 UNIT/ML VIAL SQ SCH ×3 (07:22→17:08)
[2022-08-17] MEDS: TAMSULOSIN 0.4 MG CAP.ER.24H PO SCH (08:40)
[2022-08-17] MEDS: polyethylene glycoL 3350 17 GM POWD.PACK PO SCH (08:41)
[2022-08-17] MEDS: CYANOCOBALAMIN 500 MCG TAB PO SCH (08:41)
[2022-08-17] MEDS: HEPARIN SODIUM,PORCINE/PF 5,000 UNIT/0.5 ML SYRINGE SQ SCH ×3 (08:41→20:41)
[2022-08-17] MEDS: lisinopriL 5 MG TAB PO SCH (08:41)
[2022-08-17] MEDS: lamoTRIgine 100 MG TAB PO SCH ×2 (08:41→17:02)
[2022-08-17] MEDS: CARBIDOPA-LEVODOPA 25-100 MG 1 EACH TAB PO SCH ×3 (08:41→17:02)
[2022-08-17] MEDS: LACTULOSE 20 GM/30 ML CUP PO SCH ×2 (08:42→16:50)
[2022-08-17 11:18] LABS: Glucose,Whole Blood 128 mg/dL (70-110)
--- NOTE | 2022-08-17 14:06 | P.PN ---
Subjective Progress Note Date: 08/17/22 This is a pleasant 71 years old male with multiple medical problems as below. Patient presents because of altered mental state. Patient was in rehab. This morning he was at the edge of the bed, fully awake and alert, however patient has difficulty expressing himself, looks like he has expressive aphasia. He could not tell me he is in the hospital while once he is reminded he is in the hospital he could say it is [facility], also has difficulty in telling the date and person. He could not tell why he came to the hospital but he says he feels generally weak. He denies chest pain or dyspnea or cough and. However patient is poor historian and could not provide full information. Patient was recently discharged from the hospital yesterday. She's been followed by surgery for fecal impaction and ileus. Also his been followed by pulmonary team and infectious disease team for UTI during her last admission Vitals are stable since admission. Labs reviewed. Has unremarkable CBC, INR, BMP and liver enzymes. Because is 156-289. Urinalysis is not suspicious of infection however shows glucosuria. Urine drug screen is positive for tricyclic antidepressant and benzodiazepines Chest x-ray: Posterior basilar acute infiltrate and/or atelectasis CT of the brain showing no acute change. Admission received IV fluids and started on cefepime and Zithromax. On 08/13/2022 patient was seen and examined on the medical floor he is alert responsive in no apparent distress he is having significant difficulty finding words and answering questions otherwise he denies any complaints, his nurse states that he has very limited oral intake, and he has been refusing all his medications, he is asking to be sent home, at this time input from neurology and psychiatry reviewed, physical therapy and occupational therapy consulted, will monitor progress closely On 08/14/2022 patient was seen and examined on the medical floor he is alert and oriented 3 in no distress he is sitting up in a chair today and eating his meal there is significant improvement since yesterday his speech is more fluent but not back to normal yet, he denies any fever or chills no headache or dizziness no chest pain no shortness of breath he has occasional cough no nausea or vomiting no abdominal pain no diarrhea and no urinary symptoms On 08/15/2022 patient was seen and examined on the medical floor he is alert and oriented 3 in no distress, dietitian reporting less then 25% intake of his meals nursing are stating that patient has been refusing his pills he denies any fever or chills no headache or dizziness no chest pain no shortness of breath he has occasional cough no nausea or vomiting no abdominal pain no diarrhea and no urinary symptoms. Patient was counseled in length in regards to taking his pills and eating more otherwise possibility of PEG tube was discussed. At this time will continue to monitor closely. On 08/16/2022 patient was seen and examined on the medical floor his was in the room today patient is still refusing to take some of his medication and eating very little he was counseled in length again in that regard otherwise he denies any complaints there is no fever or chills no headache or dizziness no chest pain no shortness of breath no cough no nausea or vomiting no abdominal pa in no diarrhea and no urinary symptoms On 08/17/2022 patient alert and oriented 3. Patient reports he has been taking his medication. This time will have nursing staff remove indwelling catheter a nd monitor urine output anticipate discharge in the next 24-48 hours plan for discharge home with home healthcare services. At this time patient denies chest pain or shortness of breath. Patient denies nausea vomiting or diarrhea. Patient denies any urinary burning or frequency Objective - Vital Signs Vital signs: Vital Signs Temp 97.7 F 08/17/22 07:07 Pulse 90 08/17/22 07:07 Resp 16 08/17/22 07:07 BP 133/75 08/17/22 07:07 Pulse Ox 96 08/17/22 07:07 FiO2 Intake & Output 08/16/22 08/17/22 08/17/22 18:59 06:59 18:59 Intake Total 480 520 Output Total 300 250 600 Balance 180 270 -600 Weight 73.074 kg Intake: Oral 480 520 Output: Urine 300 250 600 Uretheral (Stanley) 600 Other: Voiding Method Indwelling Catheter Indwelling Catheter Indwelling Catheter # Bowel Movements 0 - Exam GENERAL: The patient is alert and oriented x3, not in any acute distress. Well developed, well nourished. HEENT: Pupils are round and equally reacting to light. EOMI. No scleral icterus. No conjunctival pallor. Normocephalic, atraumatic. No pharyngeal erythema. No thyromegaly. CARDIOVASCULAR: S1 and S2 present. No murmurs, rubs, or gallops. PULMONARY: Chest is clear to auscultation, no wheezing or crackles. ABDOMEN: Soft, nontender, nondistended, normoactive bowel sounds. No palpable organomegaly. MUSCULOSKELETAL: No joint swelling or deformity. EXTREMITIES: No cyanosis, clubbing, or pedal edema. NEUROLOGICAL: Gross neurological examination did not reveal any focal deficits. - Labs CBC & Chem 7: 08/12/22 06:29 08/12/22 06:29 Labs: Abnormal Lab Results - Last 24 Hours (Table) 08/16/22 08/16/22 08/17/22 Range/Units 16:39 21:34 07:04 POC Glucose (mg/dL) 173 H 166 H 118 H (70-110) mg/dL 08/17/22 Range/Units 11:17 POC Glucose (mg/dL) 128 H (70-110) mg/dL Assessment and Plan Plan: New posterior basilar pneumonia. Rule out aspiration pneumonia Patient history of UTI Recent history of vitamin B12 deficiency. Was 187 on 07/29/2022 Recent falls Altered mental status, could be toxic metabolic encephalopathy. Ruled out other neurological causes Acute recurrent retention status post Stanley catheter Diabetes mellitus Hypertension History of seizure History of cataract History of Parkinson disease Continue with antibiotic. Currently on cefepime and Zithromax. Continue gentle hydration Neurology and psychiatry consult Check procalcitonin. Continue with IV hydration currently 75 mL/h Continue with Lamictal Check swallow evaluation Continue with Stanley catheter. Add Flomax Labs and medication were reviewed.. Continue same treatment. Continue with symptomatic treatment. Resume home medication. Monitor labs and vitals. DVT and GI prophylaxis. Further recommendations as per clinical course of the patient DVT prophylaxis: Subcutaneous heparin GI Prophylaxis: Ppx PT/OT: Pending Prognosis is guarded
[2022-08-17 16:24] LABS: Glucose,Whole Blood 226 mg/dL (70-110)
[2022-08-17] MEDS: MULTIVITAMINS, THERA 1 EACH TAB PO SCH (17:02)
[2022-08-17] MEDS: ASPIRIN 325 MG TAB PO SCH (17:02)
[2022-08-17 20:17] LABS: Glucose,Whole Blood 305 mg/dL (70-110)
[2022-08-17] MEDS: MIRTAZAPINE 15 MG TAB PO SCH (20:40)
[2022-08-17] MEDS: INSULIN DETEMIR (LEVEMIR) 100 UNIT/ML SYR SQ SCH (20:41)
[2022-08-18] MEDS: SODIUM CHLORIDE 0.9% 1,000 ML IV SCH ×3 (05:09→23:07)
[2022-08-18 06:01] LABS: Glucose,Whole Blood 269 mg/dL (70-110)
[2022-08-18] MEDS: INSULIN ASPART (NovoLOG) 100 UNIT/ML VIAL SQ SCH ×4 (06:05→22:11)
[2022-08-18] MEDS: PANTOPRAZOLE 40 MG TABLET PO SCH (06:06)
[2022-08-18] MEDS: LACTULOSE 20 GM/30 ML CUP PO SCH ×2 (08:45→15:02)
[2022-08-18] MEDS: polyethylene glycoL 3350 17 GM POWD.PACK PO SCH ×2 (08:52→08:55)
[2022-08-18] MEDS: HEPARIN SODIUM,PORCINE/PF 5,000 UNIT/0.5 ML SYRINGE SQ SCH ×3 (08:53→21:08)
[2022-08-18] MEDS: lamoTRIgine 100 MG TAB PO SCH ×2 (08:53→17:24)
[2022-08-18] MEDS: CARBIDOPA-LEVODOPA 25-100 MG 1 EACH TAB PO SCH ×3 (08:53→17:24)
[2022-08-18] MEDS: lisinopriL 5 MG TAB PO SCH (08:53)
[2022-08-18] MEDS: CYANOCOBALAMIN 500 MCG TAB PO SCH (08:53)
[2022-08-18] MEDS: TAMSULOSIN 0.4 MG CAP.ER.24H PO SCH ×2 (08:53→21:08)
[2022-08-18 11:27] LABS: Glucose,Whole Blood 98 mg/dL (70-110)
[2022-08-18 13:12] LABS: Basophils % (A) 1.1 %; Eosinophils # (A) 0.38 X 10*3/uL (0.04-0.35); Eosinophils % (A) 4.1 %; HCT 47.1 % (39.6-50.0); HGB 15.2 g/dL (13.0-17.0); Immature Grans, Automated 0.2 %; Lymphocytes # (A) 3.12 X 10*3/uL (0.90-5.00); MCH 29.1 pg (27.0-32.0); MCHC 32.3 g/dL (32.0-37.0); MCV 90.1 fL (80.0-97.0); Mean Platelet Volume 11.8 fL (9.5-12.2); Monocytes # (A) 0.73 X 10*3/uL (0.20-1.00); NRBC Per 100 WBC 0 /100 WBCS (0.0-0.0); Neutrophils # (A) 4.83 X 10*3/uL (1.80-7.70); Neutrophils % (A) 52.6 %; Platelet Count 310 X 10*3/uL (140-440); RBC 5.23 X 10*6/uL (4.40-5.60); RDW 12.9 % (11.5-14.5); WBC 9.18 X 10*3/uL (4.50-10.00)
[2022-08-18 13:40] LABS: African American GFR (CKD) 100.6 (60.0-200.0); Albumin 4.5 g/dL (3.8-4.9); Albumin/Globulin Ratio 1.73 (1.60-3.17); Anion Gap 12.6 mmol/L (10.00-18.00); BUN/Creat Ratio 19.33 Ratio (12.00-20.00); Blood Urea Nitrogen 17.4 mg/dL (9.0-27.0); Calcium 10.4 mg/dL (8.7-10.3); Carbon Dioxide 30.4 mmol/L (20.0-27.5); Globulin 2.6 g/dL (1.6-3.3); Non-African American GFR(CKD) 86.8 (60.0-200.0); Potassium 3.7 mmol/L (3.5-5.5); Total Bilirubin 0.4 mg/dL (0.30-1.20); Total Protein 7.1 g/dL (6.2-8.2)
--- NOTE | 2022-08-18 15:46 | P.PN ---
Subjective Progress Note Date: 08/18/22 This is a pleasant 71 years old male with multiple medical problems as below. Patient presents because of altered mental state. Patient was in rehab. This morning he was at the edge of the bed, fully awake and alert, however patient has difficulty expressing himself, looks like he has expressive aphasia. He could not tell me he is in the hospital while once he is reminded he is in the hospital he could say it is [facility], also has difficulty in telling the date and person. He could not tell why he came to the hospital but he says he feels generally weak. He denies chest pain or dyspnea or cough and. However patient is poor historian and could not provide full information. Patient was recently discharged from the hospital yesterday. She's been followed by surgery for fecal impaction and ileus. Also his been followed by pulmonary team and infectious disease team for UTI during her last admission Vitals are stable since admission. Labs reviewed. Has unremarkable CBC, INR, BMP and liver enzymes. Because is 156-289. Urinalysis is not suspicious of infection however shows glucosuria. Urine drug screen is positive for tricyclic antidepressant and benzodiazepines Chest x-ray: Posterior basilar acute infiltrate and/or atelectasis CT of the brain showing no acute change. Admission received IV fluids and started on cefepime and Zithromax. On 08/13/2022 patient was seen and examined on the medical floor he is alert responsive in no apparent distress he is having significant difficulty finding words and answering questions otherwise he denies any complaints, his nurse states that he has very limited oral intake, and he has been refusing all his medications, he is asking to be sent home, at this time input from neurology and psychiatry reviewed, physical therapy and occupational therapy consulted, will monitor progress closely On 08/14/2022 patient was seen and examined on the medical floor he is alert and oriented 3 in no distress he is sitting up in a chair today and eating his meal there is significant improvement since yesterday his speech is more fluent but not back to normal yet, he denies any fever or chills no headache or dizziness no chest pain no shortness of breath he has occasional cough no nausea or vomiting no abdominal pain no diarrhea and no urinary symptoms On 08/15/2022 patient was seen and examined on the medical floor he is alert and oriented 3 in no distress, dietitian reporting less then 25% intake of his meals nursing are stating that patient has been refusing his pills he denies any fever or chills no headache or dizziness no chest pain no shortness of breath he has occasional cough no nausea or vomiting no abdominal pain no diarrhea and no urinary symptoms. Patient was counseled in length in regards to taking his pills and eating more otherwise possibility of PEG tube was discussed. At this time will continue to monitor closely. On 08/16/2022 patient was seen and examined on the medical floor his was in the room today patient is still refusing to take some of his medication and eating very little he was counseled in length again in that regard otherwise he denies any complaints there is no fever or chills no headache or dizziness no chest pain no shortness of breath no cough no nausea or vomiting no abdominal pa in no diarrhea and no urinary symptoms On 08/17/2022 patient alert and oriented 3. Patient reports he has been taking his medication. This time will have nursing staff remove indwelling catheter a nd monitor urine output anticipate discharge in the next 24-48 hours plan for discharge home with home healthcare services. At this time patient denies chest pain or shortness of breath. Patient denies nausea vomiting or diarrhea. Patient denies any urinary burning or frequency. On 08/18/2022 patient was seen and examined on the medical floor he is alert and oriented 3 in no apparent distress he is still having very poor oral intake and he is still having difficulty with finding his words otherwise he is doing well he started taking his medications more regularly he wants to go home Stanley catheter was removed yesterday he has not urinated since had a straight cath last night at this time will increase Flomax to 0.4 mg twice daily Will continue to monitor possible discharge to home tomorrow Objective - Vital Signs Vital signs: Vital Signs Temp 97.7 F 08/18/22 08:00 Pulse 86 08/18/22 08:00 Resp 16 08/18/22 08:00 BP 110/64 08/18/22 08:00 Pulse Ox 95 08/18/22 08:00 FiO2 Intake & Output 08/17/22 08/18/22 08/18/22 18:59 06:59 18:59 Intake Total 1080 Output Total 800 320 Balance 280 -320 Weight 73.074 kg Intake: Oral 1080 Output: Urine 800 320 Uretheral (Stanley) 800 320 Other: Voiding Method Indwelling Catheter Diaper Incontinent # Voids 2 - Exam GENERAL: The patient is alert and oriented x3, not in any acute distress. Well developed, well nourished. HEENT: Pupils are round and equally reacting to light. EOMI. No scleral icterus. No conjunctival pallor. Normocephalic, atraumatic. No pharyngeal erythema. No thyromegaly. CARDIOVASCULAR: S1 and S2 present. No murmurs, rubs, or gallops. PULMONARY: Chest is clear to auscultation, no wheezing or crackles. ABDOMEN: Soft, nontender, nondistended, normoactive bowel sounds. No palpable organomegaly. MUSCULOSKELETAL: No joint swelling or deformity. EXTREMITIES: No cyanosis, clubbing, or pedal edema. NEUROLOGICAL: Gross neurological examination did not reveal any focal deficits. - Labs CBC & Chem 7: 08/18/22 07:28 08/18/22 07:28 Labs: Abnormal Lab Results - Last 24 Hours (Table) 08/17/22 08/17/22 08/18/22 Range/Units 16:22 20:15 06:00 Eosinophils # (0.04-0.35) X 10*3/uL Carbon Dioxide (20.0-27.5) mmol/L Glucose (70-110) mg/dL POC Glucose (mg/dL) 226 H 305 H 269 H (70-110) mg/dL Calcium (8.7-10.3) mg/dL Alkaline Phosphatase (41-126) U/L 08/18/22 08/18/22 Range/Units 07:28 07:28 Eosinophils # 0.38 H (0.04-0.35) X 10*3/uL Carbon Dioxide 30.4 H (20.0-27.5) mmol/L Glucose 69 L (70-110) mg/dL POC Glucose (mg/dL) (70-110) mg/dL Calcium 10.4 H (8.7-10.3) mg/dL Alkaline Phosphatase 134 H (41-126) U/L Assessment and Plan Plan: New posterior basilar pneumonia. Rule out aspiration pneumonia Patient history of UTI Recent history of vitamin B12 deficiency. Was 187 on 07/29/2022 Recent falls Altered mental status, could be toxic metabolic encephalopathy. Ruled out other neurological causes Acute recurrent retention status post Stanley catheter Diabetes mellitus Hypertension History of seizure History of cataract History of Parkinson disease Continue with antibiotic. Currently on cefepime and Zithromax. Continue gentle hydration Neurology and psychiatry consult Check procalcitonin. Continue with IV hydration currently 75 mL/h Continue with Lamictal Check swallow evaluation Continue with Stanley catheter. Add Flomax Labs and medication were reviewed.. Continue same treatment. Continue with symptomatic treatment. Resume home medication. Monitor labs and vitals. DVT and GI prophylaxis. Further recommendations as per clinical course of the patient DVT prophylaxis: Subcutaneous heparin GI Prophylaxis: Ppx PT/OT: Pending Prognosis is guarded
[2022-08-18 16:34] LABS: Glucose,Whole Blood 182 mg/dL (70-110)
[2022-08-18] MEDS: ASPIRIN 325 MG TAB PO SCH (17:24)
[2022-08-18] MEDS: MULTIVITAMINS, THERA 1 EACH TAB PO SCH (17:25)
[2022-08-18 21:04] LABS: Glucose,Whole Blood 328 mg/dL (70-110)
[2022-08-18] MEDS: MIRTAZAPINE 15 MG TAB PO SCH (21:07)
[2022-08-18] MEDS: INSULIN DETEMIR (LEVEMIR) 100 UNIT/ML SYR SQ SCH (21:08)
[2022-08-18] MEDS ORDERED: INSULIN ASPART (NovoLOG) 100 UNIT/ML VIAL SQ ONE (22:10)
[2022-08-19 06:11] LABS: Glucose,Whole Blood 140 mg/dL (70-110)
[2022-08-19] MEDS: PANTOPRAZOLE 40 MG TABLET PO SCH (06:11)
[2022-08-19] MEDS: INSULIN ASPART (NovoLOG) 100 UNIT/ML VIAL SQ SCH ×2 (06:15→11:29)
[2022-08-19 09:48] VITALS: BP 94/51; PULSE 106; RESP 17; TEMP 98.1
[2022-08-19] MEDS: polyethylene glycoL 3350 17 GM POWD.PACK PO SCH (10:04)
[2022-08-19] MEDS: CYANOCOBALAMIN 500 MCG TAB PO SCH (10:04)
[2022-08-19] MEDS: LACTULOSE 20 GM/30 ML CUP PO SCH (10:04)
[2022-08-19] MEDS: lisinopriL 5 MG TAB PO SCH (10:05)
[2022-08-19] MEDS: HEPARIN SODIUM,PORCINE/PF 5,000 UNIT/0.5 ML SYRINGE SQ SCH ×2 (10:07→15:25)
[2022-08-19] MEDS: TAMSULOSIN 0.4 MG CAP.ER.24H PO SCH (10:08)
[2022-08-19] MEDS: CARBIDOPA-LEVODOPA 25-100 MG 1 EACH TAB PO SCH ×2 (10:08→13:42)
[2022-08-19] MEDS: lamoTRIgine 100 MG TAB PO SCH (10:08)
[2022-08-19 10:48] LABS: Glucose,Whole Blood 80 mg/dL (70-110)
--- NOTE | 2022-08-19 14:09 | P.DS ---
Providers Date of admission: 08/09/22 18:52 Expected date of discharge: 08/19/22 Attending physician: Shelley Simons Consults: 08/09/22 18:52 Consult Physician Routine Consulting Provider: Rei Yoon Consult Reason/Comments: altered mental status, agitation Do you want consulting provider notified?: Yes, Notify in am Consult Physician Routine Consulting Provider: Amauri Wei Consult Reason/Comments: AMS, agitation Do you want consulting provider notified?: Yes, Notify in am Primary care physician: [facility] Course: Diagnosis on discharge: 1. New posterior basilar pneumonia. Rule out aspiration pneumonia. Received IV antibiotic however treatment was complicated by patient pulling his IV out and is refusing to take pills 2. Patient history of UTI 3. Recent history of vitamin B12 deficiency. Was 187 on 07/29/2022 4. Recent falls 5. Altered mental status, could be toxic metabolic encephalopathy. Ruled out other neurological causes 6. Acute recurrent retention status post Stanley catheter 7. Diabetes mellitus 8. Hypertension 9. History of seizure 10. History of cataract 11. History of Parkinson disease Hospital course: This is a pleasant 71 years old male with multiple medical problems as below. Patient presents because of altered mental state. Patient was in rehab. This morning he was at the edge of the bed, fully awake and alert, however patient has difficulty expressing himself, looks like he has expressive aphasia. He could not tell me he is in the hospital while once he is reminded he is in the hospital he could say it is [facility], also has difficulty in telling the date and person. He could not tell why he came to the hospital but he says he feels generally weak. He denies chest pain or dyspnea or cough and. However patient is poor historian and could not provide full information. Patient was recently discharged from the hospital yesterday. She's been followed by surgery for fecal impaction and ileus. Also his been followed by pulmonary team and infectious disease team for UTI during her last admission Vitals are stable since admission. Labs reviewed. Has unremarkable CBC, INR, BMP and liver enzymes. Because is 156-289. Urinalysis is not suspicious of infection however shows glucosuria. Urine drug screen is positive for tricyclic antidepressant and benzodiazepines Chest x-ray: Posterior basilar acute infiltrate and/or atelectasis CT of the brain showing no acute change. Admission received IV fluids and started on cefepime and Zithromax. On 08/13/2022 patient was seen and examined on the medical floor he is alert responsive in no apparent distress he is having significant difficulty finding words and answering questions otherwise he denies any complaints, his nurse states that he has very limited oral intake, and he has been refusing all his medications, he is asking to be sent home, at this time input from neurology and psychiatry reviewed, physical therapy and occupational therapy consulted, will monitor progress closely On 08/14/2022 patient was seen and examined on the medical floor he is alert and oriented 3 in no distress he is sitting up in a chair today and eating his meal there is significant improvement since yesterday his speech is more fluent but not back to normal yet, he denies any fever or chills no headache or dizziness no chest pain no shortness of breath he has occasional cough no nausea or vomiting no abdominal pain no diarrhea and no urinary symptoms On 08/15/2022 patient was seen and examined on the medical floor he is alert and oriented 3 in no distress, dietitian reporting less then 25% intake of his meals nursing are stating that patient has been refusing his pills he denies any fever or chills no headache or dizziness no chest pain no shortness of breath he has occasional cough no nausea or vomiting no abdominal pain no diarrhea and no urinary symptoms. Patient was counseled in length in regards to taking his pills and eating more otherwise possibility of PEG tube was discussed. At this time will continue to monitor closely. On 08/16/2022 patient was seen and examined on the medical floor his was in the room today patient is still refusing to take some of his medication and eating very little he was counseled in length again in that regard otherwise he denies any complaints there is no fever or chills no headache or dizziness no chest pain no shortness of breath no cough no nausea or vomiting no abdominal pain no diarrhea and no urinary symptoms On 08/17/2022 patient alert and oriented 3. Patient reports he has been taking his medication. This time will have nursing staff remove indwelling catheter and monitor urine output anticipate discharge in the next 24-48 hours plan for discharge home with home healthcare services. At this time patient denies chest pain or shortness of breath. Patient denies nausea vomiting or diarrhea. Patient denies any urinary burning or frequency. On 08/18/2022 patient was seen and examined on the medical floor he is alert and oriented 3 in no apparent distress he is still having very poor oral intake and he is still having difficulty with finding his words otherwise he is doing well he started taking his medications more regularly he wants to go home Stanley catheter was removed yesterday he has not urinated since had a straight cath last night at this time will increase Flomax to 0.4 mg twice daily Will continue to monitor possible discharge to home tomorrow. On 08/19/2022 patient was seen and examined on the medical floor he is alert and oriented 3 in no apparent distress there is no fever or chills no headache or dizziness no chest pain no shortness of breath no cough no nausea or vomiting no abdominal pain no diarrhea and no urinary symptoms patient does not have an IV and has been insisting on going home prolonged discussion with at this time she is willing to take him home with home care, he was given prescriptions for Cefdinir, Flomax, [place], Lamictal, and Remeron, arrangement were made for physical therapy and occupational therapy and visiting nurse at home, will follow in the office as soon as possible. Patient Condition at Discharge: Stable Plan - Discharge Summary Discharge Rx Participant: No New Discharge Prescriptions: New Cefdinir 300 mg PO Q12HR 10 Days #20 cap Tamsulosin [Flomax] 0.4 mg PO BID cap HYDROcodone/APAP 5-325MG [[place] 5-325] 1 each PO Q6HR PRN tab PRN Reason: Pain Mirtazapine [Remeron] 7.5 mg PO HS tab Continue lamoTRIgine 200 mg PO BID@0800,1700 Multivitamin [Men's Multi-Vitamin] 1 tab PO W/SUPPER Insulin Glargine [Lantus Vial] 22 units SQ HS Aspirin EC [Ecotrin] 325 mg PO W/SUPPER Menthol-Zinc Oxide Oint [Calmoseptine Ointment] 1 applic TOPICAL BID Magnesium Hydroxide [Milk of Magnesia Concentrate] 7,200 mg PO DAILY PRN PRN Reason: Constipation Carbidopa-Levodopa 25-100 mg [Sinemet 25-100 mg] 1 tab PO TID@0800,1200,1700 lisinopriL [Zestril] 5 mg PO DAILY@0800 Cyanocobalamin [Vitamin B-12] 1,000 mcg PO DAILY@1200 Calcium Carbonate [Calcium] 600 mg PO DAILY@1200 bisacodyL [Dulcolax] 10 mg RECTAL DAILY PRN PRN Reason: Constipation Lactulose [Cephulac] 30 gm PO BID@0800,1700 polyethylene glycoL 3350 [Miralax] 17 gm PO DAILY@0800 Pantoprazole [Protonix] 40 mg PO DAILY@0700 Discontinued INSULIN ASPART (NovoLOG) [NovoLOG (formulary)] See Protocol SQ AC-TID Na Phos,M-B/Na Phos,Di-Ba [Fleet Adult] 133 ml RECTAL DAILY PRN PRN Reason: Constipation LORazepam [Ativan] 0.5 mg PO TID PRN PRN Reason: Anxiety PARoxetine [Paxil] 20 mg PO DAILY@0800 Discharge Medication List Insulin Glargine [Lantus Vial] 22 units SQ HS 03/28/14 [History] Multivitamin [Men's Multi-Vitamin] 1 tab PO W/SUPPER 03/28/14 [History] lamoTRIgine 200 mg PO BID@0800,1700 03/28/14 [History] Aspirin EC [Ecotrin] 325 mg PO W/SUPPER 04/09/16 [History] Calcium Carbonate [Calcium] 600 mg PO DAILY@1200 02/20/21 [History] Carbidopa-Levodopa 25-100 mg [Sinemet 25-100 mg] 1 tab PO TID@0800,1200,1700 08/09/22 [History] Cyanocobalamin [Vitamin B-12] 1,000 mcg PO DAILY@1200 08/09/22 [History] Lactulose [Cephulac] 30 gm PO BID@0800,1700 08/09/22 [History] Magnesium Hydroxide [Milk of Magnesia Concentrate] 7,200 mg PO DAILY PRN 08/09/22 [History] Menthol-Zinc Oxide Oint [Calmoseptine Ointment] 1 applic TOPICAL BID 08/09/22 [History] Pantoprazole [Protonix] 40 mg PO DAILY@0700 08/09/22 [History] bisacodyL [Dulcolax] 10 mg RECTAL DAILY PRN 08/09/22 [History] lisinopriL [Zestril] 5 mg PO DAILY@0800 08/09/22 [History] polyethylene glycoL 3350 [Miralax] 17 gm PO DAILY@0800 08/09/22 [History] Cefdinir 300 mg PO Q12HR 10 Days #20 cap 08/19/22 [Rx] HYDROcodone/APAP 5-325MG [[place] 5-325] 1 each PO Q6HR PRN tab 08/19/22 [Rx] Mirtazapine [Remeron] 7.5 mg PO HS tab 08/19/22 [Rx] Tamsulosin [Flomax] 0.4 mg PO BID cap 08/19/22 [Rx] Follow up Appointment(s)/Referral(s): Shelley Simons MD [Primary Care Provider] - 1-2 days [facility] Visiting Nurse, [NON-STAFF] - 1-2 Days ([facility] will call you to schedule your home nursing, physical therapy, occupational therapy, and aide visits. ) Discharge/Stand Alone Forms: Community Resources, Help In The Home
== END 2022-08-19 17:00 | disposition home health service (06) | DRG 177 ==
LOC: EC 16:52 → 4SSUR 18:52
PROVIDERS: ADMIT Internal Medicine; ATTEND Internal Medicine
DX: J69.0 Pneumonitis due to inhalation of food and vomit (principal); G92.8 Other toxic encephalopathy; F02.811 Dementia in other diseases classified elsewhere, unspecified severity, with agitation; R47.01 Aphasia; G20 Parkinson's disease; E11.65 Type 2 diabetes mellitus with hyperglycemia; G40.909 Epilepsy, unspecified, not intractable, without status epilepticus; G31.9 Degenerative disease of nervous system, unspecified; Z79.4 Long term (current) use of insulin; I10 Essential (primary) hypertension; E53.8 Deficiency of other specified B group vitamins; R33.9 Retention of urine, unspecified; R29.6 Repeated falls; T42.4X5A Adverse effect of benzodiazepines, initial encounter; T43.015A Adverse effect of tricyclic antidepressants, initial encounter; I83.90 Asymptomatic varicose veins of unspecified lower extremity; Z79.82 Long term (current) use of aspirin; Z79.899 Other long term (current) drug therapy; Z87.440 Personal history of urinary (tract) infections; Z87.891 Personal history of nicotine dependence; Z86.73 Personal history of transient ischemic attack (TIA), and cerebral infarction without residual deficits; Z88.0 Allergy status to penicillin
CPT/HCPCS: 36415; 51702; 51798; 70450; 71045; 71046; 80048; 80053; 80306; 80320; 81003; 82140; 83036; 83605; 84484; 85025; 85610; 85730; 87040; 93005; 94760; 96365; 96368; 99285

== ENCOUNTER 2022-08-19 19:06 | Inpatient (IN) | payer MEDICARE ==
[2022-08-19] MEDS ORDERED: SODIUM CHLORIDE 0.9% 1,000 ML IV ONE (19:27)
--- NOTE | 2022-08-19 19:33 | ED ---
General Adult HPI - General Stated complaint: Altered Mental, Placement Time Seen by Provider: 08/19/22 19:10 Source: patient, RN notes reviewed, old records reviewed Limitations: altered mental status - History of Present Illness Initial comments: Patient is a pleasant [age]-year-old male presenting to emergency Department with reported change in mental status. Patient is a poor historian and offers very little significant history. Patient appears dehydrated on exam and does admit that he feels sweaty as well. Patient denies any pain. Unclear if history of similar symptoms previously. - Related Data Home Medications Medication Instructions Recorded Confirmed Insulin Glargine [Lantus Vial] 22 units SQ HS 03/28/14 08/09/22 Multivitamin [Men's Multi-Vitamin] 1 tab PO W/SUPPER 03/28/14 08/09/22 lamoTRIgine 200 mg PO BID@0800,1700 03/28/14 08/09/22 Aspirin EC [Ecotrin] 325 mg PO W/SUPPER 04/09/16 08/09/22 Calcium Carbonate [Calcium] 600 mg PO DAILY@1200 02/20/21 08/09/22 Carbidopa-Levodopa 25-100 mg 1 tab PO TID@0800,1200,1700 08/09/22 08/09/22 [Sinemet 25-100 mg] Cyanocobalamin [Vitamin B-12] 1,000 mcg PO DAILY@1200 08/09/22 08/09/22 Lactulose [Cephulac] 30 gm PO BID@0800,1700 08/09/22 08/09/22 Magnesium Hydroxide [Milk of 7,200 mg PO DAILY PRN 08/09/22 08/09/22 Magnesia Concentrate] Menthol-Zinc Oxide Oint 1 applic TOPICAL BID 08/09/22 08/09/22 [Calmoseptine Ointment] Pantoprazole [Protonix] 40 mg PO DAILY@0700 08/09/22 08/09/22 bisacodyL [Dulcolax] 10 mg RECTAL DAILY PRN 08/09/22 08/09/22 lisinopriL [Zestril] 5 mg PO DAILY@0800 08/09/22 08/09/22 polyethylene glycoL 3350 [Miralax] 17 gm PO DAILY@0800 08/09/22 08/09/22 Previous Rx's Medication Instructions Recorded Cefdinir 300 mg PO Q12HR 10 Days #20 cap 08/19/22 HYDROcodone/APAP 5-325MG [[place] 1 each PO Q6HR PRN tab 08/19/22 5-325] Mirtazapine [Remeron] 7.5 mg PO HS tab 08/19/22 Tamsulosin [Flomax] 0.4 mg PO BID cap 08/19/22 Tamsulosin [Flomax] 0.4 mg PO BID 30 Days #60 cap 08/19/22 Allergies Allergy/AdvReac Type Severity Reaction Status Date / Time Penicillins Allergy Rash/Hives Verified 08/09/22 17:16 Review of Systems ROS Statement: Those systems with pertinent positive or pertinent negative responses have been documented in the HPI. ROS Other: All systems not noted in ROS Statement are negative. Constitutional: Denies: fever Eyes: Denies: eye pain ENT: Denies: ear pain Respiratory: Denies: dyspnea Cardiovascular: Denies: chest pain Endocrine: Denies: fatigue Gastrointestinal: Denies: abdominal pain Genitourinary: Denies: dysuria Musculoskeletal: Denies: back pain Skin: Denies: rash Neurological: Reports: as per HPI Past Medical History Past Medical History: Diabetes Mellitus, Eye Disorder, Hypertension, Seizure Disorder Additional Past Medical History / Comment(s): encephalopathy; RASH LEFT ANKLE,VARICOSE VEINS,EYE FLOATERS,TREMORS,SEIZURES WITH LOW BLOOD SUGAR-LAST SEIZURE APPROX JUN 2015 History of Any Multi-Drug Resistant Organisms: None Reported Past Surgical History: Orthopedic Surgery Additional Past Surgical History / Comment(s): cataracts bilateral. total left knee. left index finger thea placement Past Anesthesia/Blood Transfusion Reactions: No Reported Reaction Past Psychological History: No Psychological Hx Reported Smoking Status: Never smoker Past Alcohol Use History: None Reported Additional Past Alcohol Use History / Comment(s): QUIT SMOKING 1974,STARTED 1973 Past Drug Use History: None Reported - Past Family History Brother(s) Family Medical History: Diabetes Mellitus Sister(s) Family Medical History: Diabetes Mellitus Additional Family Medical History / Comment(s): MS Father Family Medical History: Cancer, Diabetes Mellitus Additional Family Medical History / Comment(s): COLON CA General Exam Limitations: altered mental status General appearance: alert Head exam: Present: atraumatic, normocephalic Eye exam: Present: normal appearance ENT exam: Present: mucous membranes dry Neck exam: Present: normal inspection Respiratory exam: Present: normal lung sounds bilaterally Cardiovascular Exam: Present: regular rate, normal rhythm GI/Abdominal exam: Present: soft. Absent: tenderness Extremities exam: Present: normal inspection Neurological exam: Present: alert Expanded Neurological exam: Present: protecting the airway Patient oriented to: Present: person, place. Absent: time Cranial nerves: EOM's Intact: Normal Motor strength exam: RUE: 5, LUE: 5, RLE: 5, LLE: 5 Eye Response: (4) open spontaneously Motor Response: (6) obeys commands Verbal Response: (4) confused conversation Psychiatric exam: Present: normal affect, normal mood Skin exam: Present: normal color EKG Findings - EKG Results: EKG: interpreted by ERMD (Left axis. Septal Q waves. No acute ST change.), sinus rhythm EKG shows: tachycardia Medical Decision Making - Medical Decision Making Case was discussed with Dr. Simons who is familiar with this patient who was just recently discharged. He will admit. Apparently there is problems with patient refusing medications and bleeding from a nursing facility. EMS did report that states that patient is unable to be taken care of at home. Patient admits that he cannot walk. Patient reevaluated and updated. - Lab Data Result diagrams: 08/19/22 20:19 Lab Results 08/19/22 08/19/22 Range/Units 20:12 20:19 WBC 6.2 (3.8-10.6) k/uL RBC 4.83 (4.30-5.90) m/uL Hgb 14.7 (13.0-17.5) gm/dL Hct 44.8 (39.0-53.0) % MCV 92.6 (80.0-100.0) fL MCH 30.4 (25.0-35.0) pg MCHC 32.9 (31.0-37.0) g/dL RDW 12.9 (11.5-15.5) % Plt Count 177 (150-450) k/uL MPV 9.2 Neutrophils % 72 % Lymphocytes % 19 % Monocytes % 5 % Eosinophils % 3 % Basophils % 1 % Neutrophils # 4.4 (1.3-7.7) k/uL Lymphocytes # 1.2 (1.0-4.8) k/uL Monocytes # 0.3 (0-1.0) k/uL Eosinophils # 0.2 (0-0.7) k/uL Basophils # 0.0 (0-0.2) k/uL Hypochromasia Slight POC Glucose (mg/dL) 381 H (70-110) mg/dL POC Glu Manager Study ID Sravan [email or web address] Disposition Clinical Impression: Weakness, Dehydration Disposition: ADMITTED IP TO THIS HOSP Is patient prescribed a controlled substance at d/c from ED?: No Referrals: John Aquino MD [Primary Care Provider] - 1-2 days Time of Disposition: 20:06
[2022-08-19] MEDS ORDERED: NALOXONE 0.4 MG/ML 1 ML VIAL IV PRN (20:07)
[2022-08-19 20:15] LABS: Glucose,Whole Blood 381 mg/dL (70-110)
[2022-08-19] MEDS ORDERED: DEXTROSE 50% SYRINGE 50 ML IVP PRN ×2 (20:23)
[2022-08-19 20:49] LABS: Basophils % (A) 1 %; Eosinophils # (A) 0.2 k/uL (0-0.7); Eosinophils % (A) 3 %; HCT 44.8 % (39.0-53.0); HGB 14.7 gm/dL (13.0-17.5); Hypochromasia Slight; Lymphocytes # (A) 1.2 k/uL (1.0-4.8); Lymphocytes % (A) 19 %; MCH 30.4 pg (25.0-35.0); MCHC 32.9 g/dL (31.0-37.0); MCV 92.6 fL (80.0-100.0); Mean Platelet Volume 9.2; Monocytes # (A) 0.3 k/uL (0-1.0); Monocytes % (A) 5 %; Neutrophils # (A) 4.4 k/uL (1.3-7.7); Neutrophils % (A) 72 %; Platelet Count 177 k/uL (150-450); RBC 4.83 m/uL (4.30-5.90); RDW 12.9 % (11.5-15.5); WBC 6.2 k/uL (3.8-10.6)
[2022-08-19 20:54] LABS: Partial Thromboplastin Time 23.8 sec (22.0-30.0); Prothrombin Time 10.7 sec (9.0-12.0)
--- NOTE | 2022-08-19 21:04 | XR ---
EXAMINATION TYPE: XR chest 2V DATE OF EXAM: 08/19/2022 COMPARISON: 08/10/2022 HISTORY: Altered mental status TECHNIQUE: 2 views FINDINGS: There is no heart failure nor confluent pneumonic infiltrate. Costophrenic angles are clear . Bony thorax is intact IMPRESSION: No active cardiopulmonary disease. Inspiration is decreased and not significantly differe nt than last exam.
[2022-08-19 21:12] LABS: ALT 9 U/L (4-49); AST 22 U/L (17-59); African American GFR (CKD) >90 (>60 ml/min/1.73 sqM); Albumin 4.2 g/dL (3.5-5.0); Alkaline Phosphatase 121 U/L (38-126); Anion Gap 13 mmol/L; Blood Urea Nitrogen 24 mg/dL (9-20); Calcium 9.6 mg/dL (8.4-10.2); Carbon Dioxide 25 mmol/L (22-30); Chloride 97 mmol/L (98-107); Glucose 384 mg/dL (74-99); Non-African American GFR(CKD) 82 (>60 ml/min/1.73 sqM); Potassium 5.1 mmol/L (3.5-5.1); Sodium 135 mmol/L (137-145); Total Bilirubin 0.6 mg/dL (0.2-1.3); Total Protein 6.6 g/dL (6.3-8.2)
[2022-08-19 22:00] LABS: Glucose,Whole Blood 389 mg/dL (70-110)
[2022-08-19] MEDS: SODIUM CHLORIDE 0.9% 1,000 ML IV SCH (22:13)
[2022-08-19] MEDS: INSULIN ASPART (NovoLOG) 100 UNIT/ML VIAL SQ SCH (22:14)
[2022-08-20] MEDS ORDERED: HYDROcodone/APAP 5-325MG 1 EACH TAB PO PRN (02:30)
[2022-08-20] MEDS ORDERED: HALOPERIDOL LACTATE 5 MG/ML 1 ML VIAL IM PRN (02:37)
[2022-08-20 03:01] LABS: Glucose,Whole Blood 377 mg/dL (70-110)
[2022-08-20] MEDS ORDERED: INSULIN ASPART (NovoLOG) 100 UNIT/ML VIAL SQ ONE ×3 (03:04→20:01)
[2022-08-20 06:24] LABS: Glucose,Whole Blood 397 mg/dL (70-110)
[2022-08-20] MEDS: INSULIN ASPART (NovoLOG) 100 UNIT/ML VIAL SQ SCH ×3 (06:28→16:47)
[2022-08-20] MEDS: lamoTRIgine 100 MG TAB PO SCH ×3 (08:07→16:51)
[2022-08-20] MEDS: MULTIVITAMINS, THERA 1 EACH TAB PO SCH (08:07)
[2022-08-20] MEDS: CARBIDOPA-LEVODOPA 25-100 MG 1 EACH TAB PO SCH ×4 (08:07→16:51)
[2022-08-20] MEDS: lisinopriL 5 MG TAB PO SCH (08:07)
[2022-08-20] MEDS: ASPIRIN 325 MG TAB PO SCH (08:07)
[2022-08-20] MEDS: TAMSULOSIN 0.4 MG CAP.ER.24H PO SCH ×2 (08:07→21:20)
[2022-08-20 11:26] LABS: Glucose,Whole Blood 339 mg/dL (70-110)
[2022-08-20] MEDS: CALCIUM CARBONATE 500 MG CHEWABLE PO SCH (12:07)
--- NOTE | 2022-08-20 13:31 | P.CNNES ---
History of Present Illness Consult date: 08/20/22 Requesting physician: Shelley Simons Reason for Consult: parkinson disease, agitation History of Present Illness: Patient is a 71-year-old male, with history of Parkinson's disease, B12 deficiency, who was recently discharged from the hospital yesterday in the afternoon, was sent back to the hospital by ambulance for agitation, altered mental status. Patient arrived to the hospital at 7:06 PM. As per EMS flow sheet, patient's called the ambulance because patient was combative to her, yelling at her and threatening to burn the house down. Patient has history of Parkinson's and dementia. Patient was just discharged from [facility] a couple hours ago after being treated for UTI. Patient's 5 stated that she wanted him to go back to the hospital and look for long-term placement. According to patient's , he was combative and was experiencing "sundowners" at facility prior to returning home. There was hope that patient would be able to calm down more at home, however that was not the case. Patient's blood pressure was 138/42, pulse rate 122, respiration 18. Patient's EKG shows sinus tachycardia. Chest x-ray showed no active cardiopulmonary disease. Blood test shows normal CBC, PT/PTT, sodium 135 potassium 5.1, BU and 24 creatinine 0.95. Hepatic panel is normal. Troponin negative. Hemoglobin A1c 8.2. Patient had low B12 187 on 07/29/2022. Folic acid 12.8 and TSH is normal 2.6. Patient was given B12 injection 1000 g IM on 08/10/2022 followed by vitamin B12 1000 g orally daily. Patient's ammonia was <7.0 CPK was normal. Patient was recently hospitalized and seen by Dr. Yoon on 08/10/2022 for agitation and altered mental status. Dr. Yoon has felt that patient has p ossible Parkinson's disease because of recurrent falls, tremors, shuffling gait, hypophonia and he improved with Sinemet. Patient was started on Sinemet 25/100, 1 tablet 3 times a day. Patient had a computed tomography scan of head done on 08/09/2022, which revealed no acute intracranial process. There is moderate diffuse age-related cerebral atrophy and moderate chronic small vessel ischemic change redemonstrated. No change from prior. I personally reviewed CT head, agree with the findings. There is significant small vessel disease, particularly in the frontal subcortical white matter. Old lacunar infarct in the right basal ganglia. Slight prominence of the ventricles, but does not appear to much out of proportion to the cortical atrophy. Patient had a carotid Doppler on 02/22/2021, which revealed atherosclerotic plaque with no significant hemodynamic stenosis. 2-D echo from 02/23/2021 revealed normal left-ventricular size, wall thickness with EF greater than 55%. The left ventricular size is normal. Normal left atrial size. There is mild aortic valve sclerosis. Review of Systems Patient did not answer to questions except as mentioned below in ROS and examination. ROS unobtainable: due to mental status Constitutional: Denies chills, Denies fever Ears, nose, mouth and throat: Reports headache Cardiovascular: Denies chest pain Gastrointestinal: Denies abdominal pain Past Medical History Past Medical History: Diabetes Mellitus, Eye Disorder, Hypertension, Seizure Disorder Additional Past Medical History / Comment(s): encephalopathy; RASH LEFT AN KLE,VARICOSE VEINS,EYE FLOATERS,TREMORS,SEIZURES WITH LOW BLOOD SUGAR-LAST SEIZURE APPROX JUN 2015 History of Any Multi-Drug Resistant Organisms: None Reported Past Surgical History: Orthopedic Surgery Additional Past Surgical History / Comment(s): cataracts bilateral. total left knee. left index finger thea placement Past Anesthesia/Blood Transfusion Reactions: No Reported Reaction Past Psychological History: No Psychological Hx Reported Smoking Status: Never smoker Past Alcohol Use History: None Reported Additional Past Alcohol Use History / Comment(s): QUIT SMOKING 1974,STARTED 1973 Past Drug Use History: None Reported - Past Family History Brother(s) Family Medical History: Diabetes Mellitus Sister(s) Family Medical History: Diabetes Mellitus Additional Family Medical History / Comment(s): MS Father Family Medical History: Cancer, Diabetes Mellitus Additional Family Medical History / Comment(s): COLON CA Medications and Allergies Home Medications Medication Instructions Recorded Confirmed Type Insulin Glargine [Lantus Vial] 22 units SQ HS 03/28/14 08/19/22 History Multivitamin [Men's Multi-Vitamin] 1 tab PO DAILY 03/28/14 08/19/22 History lamoTRIgine 200 mg PO BID@0800,1700 03/28/14 08/19/22 History Aspirin EC [Ecotrin] 325 mg PO DAILY 04/09/16 08/19/22 History Calcium Carbonate [Calcium] 600 mg PO DAILY@1200 02/20/21 08/19/22 History Carbidopa-Levodopa 25-100 mg 1 tab PO TID@0800,1200,1700 08/09/22 08/19/22 History [Sinemet 25-100 mg] lisinopriL [Zestril] 5 mg PO DAILY@0800 08/09/22 08/19/22 History Cefdinir 300 mg PO Q12HR 10 Days #20 cap 08/19/22 08/19/22 Rx HYDROcodone/APAP 5-325MG [[place] 1 tab PO Q6HR PRN 08/19/22 08/19/22 History 5-325] Mirtazapine [Remeron] 7.5 mg PO HS tab 08/19/22 08/19/22 Rx Tamsulosin [Flomax] 0.4 mg PO BID cap 08/19/22 08/19/22 Rx Allergies Allergy/AdvReac Type Severity Reaction Status Date / Time Penicillins Allergy Rash/Hives Verified 08/09/22 17:16 Physical Examination - Vital Signs Vital Signs: Vital Signs Temp Pulse Pulse Resp BP BP Pulse Ox 08/20/22 08:00 97.8 F 65 18 111/63 99 08/20/22 01:51 97.6 F 103 H 12 114/70 95 08/19/22 22:34 97.6 F 101 H 13 128/63 97 08/19/22 21:06 97.7 F 104 H 20 114/74 97 Intake and Output 08/19/22 08/20/22 08/20/22 22:59 06:59 14:59 Other: # Voids 1 Weight 70.307 kg Patient is an elderly male, who is reclining in the recliner. He keeps his eyes closed. Patient is somnolent, appears to keep his eyes closed. Patient knows his full name, but could not tell the current month or the year, city or the state. Patient would start with "it's .........", then would stop or forgets to answer. Speech and language functions were difficult to assess. He did speak "get out of here", and also spoke a few words like his name which was clear with no dysarthria or obvious aphasia. Exam was however limited. He was able to name eyeglasses, but did not elect to answer or would say "it is.......". Patient admits to having headache, states "very very........". Attention, concentration and fund of knowledge is adequate are all very limited. Prolonged latency time to answer any question. Patient has negative palmomental reflex, negative grasp reflex. On cranial nerve examination, pupils are equal, round and reacting to light, visual north could not be tested although he does blink to visual threat bilaterally. Extraocular muscles are intact with no nystagmus. Face is symmetric, tongue protrudes to the midline. Lower cranial nerves could not be tested as he would not comply. Hearing appears to be somewhat decreased perhaps. On muscle strength testing, there is no pronator drift and the strength is normal in arms and legs distally and proximally. Deep tendon reflexes are symmetric to all over and plantars are withdrawal bilaterally. Sensory to touch is equal. Patient did not cooperate for testing for neglect. Cerebellar function patient did not cooperate. Tone is mildly increased and bulk of muscles normal. Gait deferred.. On general examination, there is no carotid bruit or murmur, S1-S2 audible. Chest is clear on consultation. Abdomen is soft nontender. No organomegaly, bowel sounds present. Peripheral pulses are present. No edema. Skin appears dry. Results - Laboratory Findings CBC and BMP: 08/19/22 20:19 08/19/22 20:19 Abnormal Lab Findings: Abnormal Labs 08/19/22 08/19/22 08/19/22 20:12 20:19 20:19 Sodium 135 L Chloride 97 L BUN 24 H Glucose 384 H POC Glucose (mg/dL) 381 H Hemoglobin A1c 8.2 H 08/19/22 08/20/22 08/20/22 21:59 02:59 06:19 Sodium Chloride BUN Glucose POC Glucose (mg/dL) 389 H 377 H 397 H Hemoglobin A1c Assessment and Plan Assessment: * Dementia with behavioral disturbance. * Possible parkinsonism. Rule out Lewy body dementia * Diabetes * Hypertension * Previous history of seizure disorder Plan: * Check EEG for altered mental status and previous history of seizure disorder. Patient on Lamictal 200 mg twice a day. * Repeat B12, MMA, B1 level, Lamictal level and RPR * Start Aricept 5 mg daily and Namenda 5 mg twice a day for dementia. * Continue Sinemet 25/100, 1 tablet 3 times a day for now. * Await psychiatry consultation. * cripple worker intervention for possible placement. * Neurology will follow. Thank you for the consult.
--- NOTE | 2022-08-20 14:04 | P.CN ---
Psychiatric Consult - . Consult date: 08/20/22 Consult:: 08/20/22 14:03 08/10/22 13:37 IDENTIFYING DATA: This patient is a , retired, 71 year old male with a significant history of seizure who presents with altered mental status. He was recently discharged home on 08/19/2022 but returned after displaying agitated behavior. HISTORY OF PRESENT ILLNESS: The patient was initially evaluated at this hospital on 08/09/2022 after displaying agitated behavior at rehab, often screaming at staff and standing by his window naked. He was also evaluated by neurology during this previous admission. The patient has previous diagnoses of dementia with behavioral disturbances and possible parkinsonism. He also has a history of seizure disorder. During his last hospitalization, the patient was placed on Haldol when necessary for agitation which was beneficial. However attempts to start the patient on scheduled dose of Seroquel and Remeron was met with futility as the patient refused any oral medications. However, the patient did display significant improvement in regards to his target behaviors and was much more cooperative with staff. He was subsequently discharged home on 08/19/2022. Review of the patient's chart reveals that the patient's called the ambulance because the patient was combative to her and yelling and threatening to burn house down. The patient's stated that she wanted him to go back to the hospital and look for long-term placement. The patient was noted to be combative and experiencing "sundowners" at the facility prior to returning home. Upon evaluation today on the medical floor, the patient is minimally responsive to external stimuli. He does not answer any questions and stares blankly at this provider. He does not participate in the psychiatric interview. Of note, the patient did take his medications this morning. The patient does have elevated blood sugars in the high 300s. During his last check on 07/29/2022, the patient's B12 was noted to be deficient at 187. A1c is noted to be 8.2%. PAST PSYCHIATRIC HISTORY: Patient has no reported psychiatric history. He has never had any previous inpatient psychiatric admissions or outpatient follow-up. He was last discharged on a regimen of Remeron 7.5 mg at bedtime for appetite stimulation. The patient was nonadherent with this medication. PAST MEDICAL HISTORY: Past Medical History: Diabetes Mellitus, Eye Disorder, Hypertension, Seizure Disorder Additional Past Medical History / Comment(s): encephalopathy; RASH LEFT ANKLE,VARICOSE VEINS,EYE FLOATERS,TREMORS,SEIZURES WITH LOW BLOOD SUGAR-LAST SEIZURE APPROX JUN 2015 History of Any Multi-Drug Resistant Organisms: None Reported Past Surgical History: Orthopedic Surgery Additional Past Surgical History / Comment(s): cataracts bilateral. total left knee. left index finger thea placement Past Anesthesia/Blood Transfusion Reactions: No Reported Reaction Past Psychological History: No Psychological Hx Reported Smoking Status: Never smoker Past Alcohol Use History: None Reported Additional Past Alcohol Use History / Comment(s): QUIT SMOKING 1974,STARTED 1973 Past Drug Use History: None Reported ALLERGIES: Penicillins CHEMICAL DEPENDENCY HISTORY: Patient quit smoking in 1974. No reported alcohol or drug use. FAMILY PSYCHIATRIC/SUBSTANCE USE HISTORY: Unable to obtain SOCIAL HISTORY: Patient is , retired. MENTAL STATUS EXAM: General Appearance: Patient appears to be stated age is alert, however is uncooperative. Patient appears to have fair hygiene and grooming wearing hospital gown with fair eye contact. Behavior: Patient displays some tremulousness. Speech: Patient is nonverbal today. Mood/Affect: Unable to assess patient's mood. Affect appears to be flat. Suicidality/Homicidality Unable to assess. Perceptions: Unable to assess. Though content/process: Unable to assess. Memory and concentration: Unable to assess. Grossly poor. Judgment and insight: Grossly poor. IMPRESSIONS: Major neurocognitive disorder with behavioral disturbances Rule out Parkinson's disease/Lewy body dementia Seizure disorder Hyperglycemia Vitamin B-12 deficiency Diabetes mellitus PLAN: -Continue your medical management -At this time patient DOES NOT meet criteria for inpatient psychiatric admission. -Patient DOES NOT have decision making capacity at this time and is unable to reason through and communicate/appreciate the risks, benefits and alternatives to treatment. -Delirium precautions recommended with patient including - avoiding use of narcotics and [employer] sedatives, limit anticholinergic medications when possible, frequent re-orientation, minimize use of restraints, open window shades during the day and close them at night -Would recommend the following medication changes/additions: Continue Haldol to 3 mg IM q4H PRN for agitation Continue Remeron 7.5 mg. At bedtime for appetite stimulation and insomnia This provider attempted to call the patient's in regards to possibly starting Seroquel at bedtime. Unable to reach her at this time. Wish to discuss the black box warnings of Seroquel including the risks of increased cardiovascular events in patient's with dementia prior to initiation of this medication. -Will continue to follow along Vital Signs Temp 97.8 F 08/20/22 08:00 Pulse 65 08/20/22 08:00 Resp 18 08/20/22 08:00 BP 111/63 08/20/22 08:00 Pulse Ox 99 08/20/22 08:00 FiO2 Intake & Output 08/19/22 08/20/22 08/20/22 18:59 06:59 18:59 Weight 70.307 kg Other: Voiding Method Urinal Diaper # Voids 1 Laboratory Results WBC 6.2 k/uL (3.8-10.6) 08/19/22 20:19 RBC 4.83 m/uL (4.30-5.90) 08/19/22 20:19 Hgb 14.7 gm/dL (13.0-17.5) 08/19/22 20:19 Hct 44.8 % (39.0-53.0) 08/19/22 20:19 MCV 92.6 fL (80.0-100.0) 08/19/22 20:19 MCH 30.4 pg (25.0-35.0) 08/19/22 20:19 MCHC 32.9 g/dL (31.0-37.0) 08/19/22 20:19 RDW 12.9 % (11.5-15.5) 08/19/22 20:19 Plt Count 177 k/uL (150-450) 08/19/22 20:19 MPV 9.2 08/19/22 20:19 Neutrophils % 72 % 08/19/22 20:19 Lymphocytes % 19 % 08/19/22 20:19 Monocytes % 5 % 08/19/22 20:19 Eosinophils % 3 % 08/19/22 20:19 Basophils % 1 % 08/19/22 20:19 Neutrophils # 4.4 k/uL (1.3-7.7) 08/19/22 20:19 Lymphocytes # 1.2 k/uL (1.0-4.8) 08/19/22 20:19 Monocytes # 0.3 k/uL (0-1.0) 08/19/22 20:19 Eosinophils # 0.2 k/uL (0-0.7) 08/19/22 20:19 Basophils # 0.0 k/uL (0-0.2) 08/19/22 20:19 Hypochromasia Slight 08/19/22 20:19 PT 10.7 sec (9.0-12.0) 08/19/22 20:19 INR 1.0 (<1.2) 08/19/22 20:19 APTT 23.8 sec (22.0-30.0) 08/19/22 20:19 Sodium 135 mmol/L (137-145) L 08/19/22 20:19 Potassium 5.1 mmol/L (3.5-5.1) 08/19/22 20:19 Chloride 97 mmol/L (98-107) L 08/19/22 20:19 Carbon Dioxide 25 mmol/L (22-30) 08/19/22 20:19 Anion Gap 13 mmol/L 08/19/22 20:19 BUN 24 mg/dL (9-20) H 08/19/22 20:19 Creatinine 0.95 mg/dL (0.66-1.25) 08/19/22 20:19 Est GFR (CKD-EPI)AfAm >90 (>60 ml/min/1.73 sqM) 08/19/22 20:19 Est GFR (CKD-EPI)NonAf 82 (>60 ml/min/1.73 sqM) 08/19/22 20:19 Glucose 384 mg/dL (74-99) H 08/19/22 20:19 POC Glucose (mg/dL) 339 mg/dL (70-110) H 08/20/22 11:25 POC Glu Integrity Assessor ID [facility] 08/20/22 11:[address] Glu mg/dL 190 08/19/22 20:19 Hemoglobin A1c 8.2 % (0.0-6.0) H 08/19/22 20:19 Calcium 9.6 mg/dL (8.4-10.2) 08/19/22 20:19 Total Bilirubin 0.6 mg/dL (0.2-1.3) 08/19/22 20:19 AST 22 U/L (17-59) 08/19/22 20:19 ALT 9 U/L (4-49) 08/19/22 20:19 Alkaline Phosphatase 121 U/L (38-126) 08/19/22 20:19 Troponin I <0.012 ng/mL (0.000-0.034) 08/19/22 20:19 Total Protein 6.6 g/dL (6.3-8.2) 08/19/22 20:19 Albumin 4.2 g/dL (3.5-5.0) 08/19/22 20:19 Allergies Allergy/AdvReac Type Severity Reaction Status Date / Time Penicillins Allergy Rash/Hives Verified 08/09/22 17:16 08/10/22 13:37 08/20/22 14:03
[2022-08-20] MEDS: MEMANTINE 5 MG TAB PO SCH ×3 (14:36→21:19)
[2022-08-20 16:30] LABS: Glucose,Whole Blood 434 mg/dL (70-110)
--- NOTE | 2022-08-20 19:21 | P.HPIM ---
History of Present Illness H&P Date: 08/20/22 Thang Key, is a 71-year-old male who presented to [facility] emergency room due to generalized debility and mental status changes. Patient had a prolonged 2 recent admissions, initially he presented to emergency room about 3 weeks ago with severe constipation and bowel obstruction, he had mental status changes with poor speech and poor gait, he underwent colonoscopy with , he was evaluated by neurology and was diagnosed with advanced Parkinson disease, he was having episodes of confusion and agitation, he was evaluated by neurology and psychiatry and was transferred to [facility] for rehab, at [facility], patient was refusing to eat and refusing to take his pills he continued to decline and he was transferred back to [facility] emergency room. Patient was readmitted to the hospital he was seen again by neurology and psychiatry he was counseled in length in regards to taking his medications and eating his meals, he seems to have improved, he was asking to be discharged home, and his was willing to take him home and try to take care of him. However patient went home and was having agitation again and was not taking his medications, he was brought back to emergency room. Past Medical History Past Medical History: Diabetes Mellitus, Eye Disorder, Hypertension, Seizure Disorder Additional Past Medical History / Comment(s): encephalopathy; RASH LEFT ANKLE,VARICOSE VEINS,EYE FLOATERS,TREMORS,SEIZURES WITH LOW BLOOD SUGAR-LAST SEIZURE APPROX JUN 2015 History of Any Multi-Drug Resistant Organisms: None Reported Past Surgical History: Orthopedic Surgery Additional Past Surgical History / Comment(s): cataracts bilateral. total left knee. left index finger thea placement Past Anesthesia/Blood Transfusion Reactions: No Reported Reaction Past Psychological History: No Psychological Hx Reported Smoking Status: Never smoker Past Alcohol Use History: None Reported Additional Past Alcohol Use History / Comment(s): QUIT SMOKING 1974,STARTED 1973 Past Drug Use History: None Reported - Past Family History Brother(s) Family Medical History: Diabetes Mellitus Sister(s) Family Medical History: Diabetes Mellitus Additional Family Medical History / Comment(s): MS Father Family Medical History: Cancer, Diabetes Mellitus Additional Family Medical History / Comment(s): COLON CA Medications and Allergies Home Medications Medication Instructions Recorded Confirmed Type Insulin Glargine [Lantus Vial] 22 units SQ HS 03/28/14 08/19/22 History Multivitamin [Men's Multi-Vitamin] 1 tab PO DAILY 03/28/14 08/19/22 History lamoTRIgine 200 mg PO BID@0800,1700 03/28/14 08/19/22 History Aspirin EC [Ecotrin] 325 mg PO DAILY 04/09/16 08/19/22 History Calcium Carbonate [Calcium] 600 mg PO DAILY@1200 02/20/21 08/19/22 History Carbidopa-Levodopa 25-100 mg 1 tab PO TID@0800,1200,1700 08/09/22 08/19/22 History [Sinemet 25-100 mg] lisinopriL [Zestril] 5 mg PO DAILY@0800 08/09/22 08/19/22 History Cefdinir 300 mg PO Q12HR 10 Days #20 cap 08/19/22 08/19/22 Rx HYDROcodone/APAP 5-325MG [[place] 1 tab PO Q6HR PRN 08/19/22 08/19/22 History 5-325] Mirtazapine [Remeron] 7.5 mg PO HS tab 08/19/22 08/19/22 Rx Tamsulosin [Flomax] 0.4 mg PO BID cap 08/19/22 08/19/22 Rx Allergies Allergy/AdvReac Type Severity Reaction Status Date / Time Penicillins Allergy Rash/Hives Verified 08/09/22 17:16 Physical Exam Vitals: Vital Signs Temp Pulse Pulse Resp BP BP Pulse Ox 08/20/22 08:00 97.8 F 65 18 111/63 99 08/20/22 01:51 97.6 F 103 H 12 114/70 95 08/19/22 22:34 97.6 F 101 H 13 128/63 97 08/19/22 21:06 97.7 F 104 H 20 114/74 97 Intake and Output 08/19/22 08/20/22 08/20/22 22:59 06:59 14:59 Other: # Voids 1 Weight 70.307 kg In general patient is alert, slightly confused, has difficulty finding his words, in no apparent distress HEENT head normocephalic and atraumatic Neck is supple no JVD no goiter no lymphadenopathy no carotid bruit Chest examination is clear to auscultation no crackles no wheezing Cardiac exam reveals regular heart sounds S1 and S2 no gallops no murmurs Abdomen is soft nontender no organomegaly with normal bowel sounds Extremity exam reveals no edema no cyanosis or clubbing Neurological examination reveals the tremors and rigidity but no focal neurological deficit Results CBC & Chem 7: 08/19/22 20:19 08/19/22 20:19 Labs: Abnormal Lab Results - Last 24 Hours (Table) 08/19/22 08/19/22 08/19/22 Range/Units 20:12 20:19 20:19 Sodium 135 L (137-145) mmol/L Chloride 97 L (98-107) mmol/L BUN 24 H (9-20) mg/dL Glucose 384 H (74-99) mg/dL POC Glucose (mg/dL) 381 H (70-110) mg/dL Hemoglobin A1c 8.2 H (0.0-6.0) % 08/19/22 08/20/22 08/20/22 Range/Units 21:59 02:59 06:19 Sodium (137-145) mmol/L Chloride (98-107) mmol/L BUN (9-20) mg/dL Glucose (74-99) mg/dL POC Glucose (mg/dL) 389 H 377 H 397 H (70-110) mg/dL Hemoglobin A1c (0.0-6.0) % Thrombosis Risk Factor Assmnt - Choose All That Apply Any of the Below Risk Factors Present?: No Each Risk Factor Represents 2 Points: Age 61-74 years Other congenital or acquired thrombophilia - If yes, enter type in comment: No Thrombosis Risk Factor Assessment Total Risk Factor Score: 2 Thrombosis Risk Factor Assessment Level: Low Risk Assessment and Plan Plan: Mental status changes with agitation and confusion Recent diagnosis was advanced Parkinson disease Recent diagnosis was partial bowel obstruction Recent diagnosis of benign prostatic hypertrophy with urinary retention, started on Flomax Underlying history of insulin-dependent diabetes mellitus At this time patient is admitted to medical floor Home medications reviewed and reordered Consultation for neurology and psychiatry requested again Will check labs in a.m. For DVT prophylaxis subcu Lovenox Will follow closely
[2022-08-20 19:31] LABS: Glucose,Whole Blood 353 mg/dL (70-110)
[2022-08-20] MEDS: MIRTAZAPINE 15 MG TAB PO SCH (21:19)
[2022-08-20] MEDS: DONEPEZIL 5 MG TAB PO SCH (21:20)
[2022-08-20] MEDS: SODIUM CHLORIDE 0.9% 1,000 ML IV SCH ×2 (21:21→23:30)
[2022-08-20] MEDS: INSULIN DETEMIR (LEVEMIR) 100 UNIT/ML SYR SQ SCH (21:21)
[2022-08-21 06:16] LABS: Glucose,Whole Blood 131 mg/dL (70-110)
[2022-08-21] MEDS: INSULIN ASPART (NovoLOG) 100 UNIT/ML VIAL SQ SCH ×3 (06:38→18:05)
[2022-08-21] MEDS: ENOXAPARIN 40 MG/0.4 ML SYRINGE SQ SCH (09:47)
[2022-08-21] MEDS: CALCIUM CARBONATE 500 MG CHEWABLE PO SCH (09:47)
[2022-08-21] MEDS: MULTIVITAMINS, THERA 1 EACH TAB PO SCH (09:47)
[2022-08-21] MEDS: TAMSULOSIN 0.4 MG CAP.ER.24H PO SCH ×2 (09:47→21:09)
[2022-08-21] MEDS: CARBIDOPA-LEVODOPA 25-100 MG 1 EACH TAB PO SCH ×3 (09:47→18:06)
[2022-08-21] MEDS: lamoTRIgine 100 MG TAB PO SCH ×2 (09:47→18:06)
[2022-08-21] MEDS: MEMANTINE 5 MG TAB PO SCH ×2 (09:47→21:09)
[2022-08-21] MEDS: ASPIRIN 325 MG TAB PO SCH (09:47)
[2022-08-21] MEDS: lisinopriL 5 MG TAB PO SCH (09:48)
[2022-08-21] MEDS: SODIUM CHLORIDE 0.9% 1,000 ML IV SCH (09:48)
[2022-08-21 11:07] LABS: Basophils # (A) 0.1 k/uL (0-0.2); Basophils % (A) 1 %; Eosinophils # (A) 0.5 k/uL (0-0.7); Eosinophils % (A) 7 %; HCT 38.6 % (39.0-53.0); HGB 12.9 gm/dL (13.0-17.5); Lymphocytes # (A) 2.2 k/uL (1.0-4.8); Lymphocytes % (A) 31 %; MCH 30.2 pg (25.0-35.0); MCHC 33.4 g/dL (31.0-37.0); MCV 90.4 fL (80.0-100.0); Mean Platelet Volume 10.1; Monocytes # (A) 0.4 k/uL (0-1.0); Monocytes % (A) 5 %; Neutrophils # (A) 3.8 k/uL (1.3-7.7); Neutrophils % (A) 54 %; Platelet Count 167 k/uL (150-450); RBC 4.26 m/uL (4.30-5.90); RDW 12.8 % (11.5-15.5); WBC 7.1 k/uL (3.8-10.6)
[2022-08-21 11:32] LABS: Glucose,Whole Blood 53 mg/dL (70-110)
[2022-08-21 11:46] LABS: ALT 17 U/L (4-49); AST 24 U/L (17-59); African American GFR (CKD) >90 (>60 ml/min/1.73 sqM); Albumin 3.7 g/dL (3.5-5.0); Albumin/Globulin Ratio 1.6; Alkaline Phosphatase 110 U/L (38-126); Anion Gap 7 mmol/L; Blood Urea Nitrogen 22 mg/dL (9-20); Calcium 8.9 mg/dL (8.4-10.2); Carbon Dioxide 30 mmol/L (22-30); Chloride 106 mmol/L (98-107); Globulin 2.3 g/dL; Glucose 51 mg/dL (74-99); Non-African American GFR(CKD) >90 (>60 ml/min/1.73 sqM); Potassium 3.3 mmol/L (3.5-5.1); Sodium 143 mmol/L (137-145); Total Bilirubin 0.4 mg/dL (0.2-1.3)
[2022-08-21 11:48] LABS: Glucose,Whole Blood 50 mg/dL (70-110)
[2022-08-21 12:02] LABS: Glucose,Whole Blood 51 mg/dL (70-110)
[2022-08-21 12:27] LABS: Glucose,Whole Blood 64 mg/dL (70-110)
[2022-08-21 12:40] LABS: Glucose,Whole Blood 87 mg/dL (70-110)
--- NOTE | 2022-08-21 13:00 | EEG ---
ELECTROENCEPHALOGRAM REPORT PREAMBLE: This is a 71-year-old male with history of seizure, has altered mental status. EEG FINDINGS: This is a 21-channel digital EEG recorded with video component, utilizing 10/20 international system with referential and bipolar montages. Background consists of moderately well-developed and regulated, mixed frequencies of 7 hertz theta with some low amplitude 2-3 hertz delta activity seen in bihemispheric region. Background does not seem to be reactive to eye opening or closing. Photic stimulation and hyperventilation were not performed. Different stages of sleep were not clearly seen. No focal or generalized epileptiform activity was seen. IMPRESSION: This is an abnormal EEG due to background slowing of at least moderate degree. This is suggestive of generalized cerebral dysfunction as can be seen with toxic metabolic encephalopathy or due to diffuse structural brain abnormality. Clinical correlation is recommended. No epileptiform activity was seen. MMGALINA / RYAN: [id number] /
--- NOTE | 2022-08-21 13:19 | P.PN ---
Progress Note - Text Progress Note Date: 08/21/22 Interval History: Patient was seen resting in bed and was directable and agreeable to speak with the newspaper writer in his room. Currently, the patient is alert and oriented to person, place, and year. He is unable to identify the specific date or the recent holiday. He is able to identify that his is next to him at bedside and is unable to properly name her. He is currently denying any suicidal or homicidal ideation. He reports no auditory or visual hallucinations. Both him and his do acknowledge previous diagnosis of Parkinson's disease. As per discussion with patient's nurse, he did have an episode of hypoglycemia. Furthermore, the patient did require administration of Haldol early this morning for agitation. Mental Status Exam: General Appearance: Patient appears to be stated age is alert, directable, and cooperative. Behavior: Patient is calmly seated without any agitated behavior. Psychomotor slowing is evident. Speech: Patient's speech is nonspontaneous, low in volume, one-word replies. Mood/Affect: Mood is improving mildly, affect is flat. Suicidality/Homicidality: Patient denies having any suicidal or homicidal ideation intent or plan. Perceptions: Patient denies any visual hallucinations and denies any auditory hallucinations Though content/process: There is no evidence of any delusional thought content and thought process is linear and goal-directed. Memory and concentration: He is alert and oriented to person and place. Judgment and insight: Improving mildly but at baseline poor Vital Signs Temp 97.4 F L 08/21/22 08:00 Pulse 82 08/21/22 08:00 Resp 15 08/21/22 08:00 BP 104/39 08/21/22 08:00 Pulse Ox 94 L 08/21/22 08:00 FiO2 Intake & Output 08/20/22 08/21/22 08/21/22 18:59 06:59 18:59 Other: Voiding Method Urinal Urinal Diaper Diaper # Voids 1 4 1 Laboratory Results - Last 24 Hours 08/20/22 08/20/22 08/20/22 14:19 14:19 16:29 WBC RBC Hgb Hct MCV MCH MCHC RDW Plt Count MPV Neutrophils % Lymphocytes % Monocytes % Eosinophils % Basophils % Neutrophils # Lymphocytes # Monocytes # Eosinophils # Basophils # Sodium Potassium Chloride Carbon Dioxide Anion Gap BUN Creatinine Est GFR (CKD-EPI)AfAm Est GFR (CKD-EPI)NonAf Glucose POC Glucose (mg/dL) 434 H POC Glu Cans Vacuum Tester ID Carmen shi Calcium Total Bilirubin AST ALT Alkaline Phosphatase Total Protein Albumin Globulin Albumin/Globulin Ratio Vitamin B12 836.0 Treponema pallidum Ab Nonreactive 08/20/22 08/21/22 08/21/22 19:30 06:15 10:53 WBC 7.1 RBC 4.26 L Hgb 12.9 L Hct 38.6 L MCV 90.4 MCH 30.2 MCHC 33.4 RDW 12.8 Plt Count 167 MPV 10.1 Neutrophils % 54 Lymphocytes % 31 Monocytes % 5 Eosinophils % 7 Basophils % 1 Neutrophils # 3.8 Lymphocytes # 2.2 Monocytes # 0.4 Eosinophils # 0.5 Basophils # 0.1 Sodium Potassium Chloride Carbon Dioxide Anion Gap BUN Creatinine Est GFR (CKD-EPI)AfAm Est GFR (CKD-EPI)NonAf Glucose POC Glucose (mg/dL) 353 H 131 H POC Glu Cans Vacuum Tester ID Tay York Christian Calcium Total Bilirubin AST ALT Alkaline Phosphatase Total Protein Albumin Globulin Albumin/Globulin Ratio Vitamin B12 Treponema pallidum Ab 08/21/22 08/21/22 08/21/22 10:53 11:31 11:46 WBC RBC Hgb Hct MCV MCH MCHC RDW Plt Count MPV Neutrophils % Lymphocytes % Monocytes % Eosinophils % Basophils % Neutrophils # Lymphocytes # Monocytes # Eosinophils # Basophils # Sodium 143 Potassium 3.3 L Chloride 106 Carbon Dioxide 30 Anion Gap 7 BUN 22 H Creatinine 0.70 Est GFR (CKD-EPI)AfAm >90 Est GFR (CKD-EPI)NonAf >90 Glucose 51 L POC Glucose (mg/dL) 53 L 50 L POC Glu Cans Vacuum Tester ID Bessy [place] Leah Calcium 8.9 Total Bilirubin 0.4 AST 24 ALT 17 Alkaline Phosphatase 110 Total Protein 6.0 L Albumin 3.7 Globulin 2.3 Albumin/Globulin Ratio 1.6 Vitamin B12 Treponema pallidum Ab 08/21/22 08/21/22 08/21/22 12:01 12:25 12:38 WBC RBC Hgb Hct MCV MCH MCHC RDW Plt Count MPV Neutrophils % Lymphocytes % Monocytes % Eosinophils % Basophils % Neutrophils # Lymphocytes # Monocytes # Eosinophils # Basophils # Sodium Potassium Chloride Carbon Dioxide Anion Gap BUN Creatinine Est GFR (CKD-EPI)AfAm Est GFR (CKD-EPI)NonAf Glucose POC Glucose (mg/dL) 51 L 64 L 87 POC Glu Cans Vacuum Tester Bessy Smith Leah Bolday, Leah Calcium Total Bilirubin AST ALT Alkaline Phosphatase Total Protein Albumin Globulin Albumin/Globulin Ratio Vitamin B12 Treponema pallidum Ab Assessment Major neurocognitive disorder with behavioral disturbances Rule out Parkinson's disease/Lewy body dementia Seizure disorder Hyperglycemia Vitamin B-12 deficiency Diabetes mellitus Plan: -Continue your medical management -At this time patient DOES NOT meet criteria for inpatient psychiatric admission. -Patient DOES NOT have decision making capacity at this time and is unable to reason through and communicate/appreciate the risks, benefits and alternatives to treatment. -Delirium precautions recommended with patient including - avoiding use of narcotics and LEVEL VIAL SETTER sedatives, limit anticholinergic medications when possible, frequent re-orientation, minimize use of restraints, open window shades during the day and close them at night -Would recommend the following medication changes/additions: Continue Haldol to 3 mg IM q4H PRN for agitation Continue Remeron 7.5 mg at bedtime for appetite stimulation and insomnia -This provider will meet with the patient's and sister to discuss the initiation scheduled antipsychotic medication including the risks, benefits, and treatment alternatives. We will discuss the black box warning of the medication. We are scheduled to meet at the patient's bedside at 2:30 PM tomorrow. -Will continue to follow along
--- NOTE | 2022-08-21 14:00 | P.PN ---
Subjective Progress Note Date: 08/21/22 Patient was seen for a follow-up. Patient is laying in the bed. He denies headache, no dizziness. Patient still is very confused, stating the year is 2012. He perseverates on 2012. Objective - Vital Signs Vital signs: Vital Signs Temp 97.4 F L 08/21/22 08:00 Pulse 82 08/21/22 08:00 Resp 15 08/21/22 08:00 BP 104/39 08/21/22 08:00 Pulse Ox 94 L 08/21/22 08:00 FiO2 Intake & Output 08/20/22 08/21/22 08/21/22 18:59 06:59 18:59 Other: Voiding Method Urinal Urinal Diaper Diaper # Voids 1 4 1 - Exam Patient is laying in the bed. Patient's speech is slightly more clear. He still confused, thinking it is 2012. He perseverates on 2012. His face is symmetric. The strength of his case folder, biceps and triceps are normal. He did not cooperate for testing of the lower extremities. - Labs CBC & Chem 7: 08/21/22 10:53 08/21/22 10:53 Labs: Abnormal Lab Results - Last 24 Hours (Table) 08/20/22 08/20/22 08/21/22 Range/Units 16:29 19:30 06:15 RBC (4.30-5.90) m/uL Hgb (13.0-17.5) gm/dL Hct (39.0-53.0) % Potassium (3.5-5.1) mmol/L BUN (9-20) mg/dL Glucose (74-99) mg/dL POC Glucose (mg/dL) 434 H 353 H 131 H (70-110) mg/dL Total Protein (6.3-8.2) g/dL 08/21/22 08/21/22 08/21/22 Range/Units 10:53 10:53 11:31 RBC 4.26 L (4.30-5.90) m/uL Hgb 12.9 L (13.0-17.5) gm/dL Hct 38.6 L (39.0-53.0) % Potassium 3.3 L (3.5-5.1) mmol/L BUN 22 H (9-20) mg/dL Glucose 51 L (74-99) mg/dL POC Glucose (mg/dL) 53 L (70-110) mg/dL Total Protein 6.0 L (6.3-8.2) g/dL 08/21/22 08/21/22 08/21/22 Range/Units 11:46 12:01 12:25 RBC (4.30-5.90) m/uL Hgb (13.0-17.5) gm/dL Hct (39.0-53.0) % Potassium (3.5-5.1) mmol/L BUN (9-20) mg/dL Glucose (74-99) mg/dL POC Glucose (mg/dL) 50 L 51 L 64 L (70-110) mg/dL Total Protein (6.3-8.2) g/dL Assessment and Plan Assessment: * Dementia with behavioral disturbance. * Possible parkinsonism. Rule out Lewy body dementia * Diabetes * Hypertension * Previous history of seizure disorder Plan: * EEG was performed today, which is abnormal due to background slowing of at least moderate degree. This is suggestive of generalized cerebral dysfunction as can be seen with toxic metabolic encephalopathy or related to diffuse structural brain abnormality. Clinical correlation is recommended. No epileptiform activity was seen. Patient on Lamictal 200 mg twice a day. * B12 836, folate 12.8. MMA, B1 level, Lamictal level and RPR nonreactive * Continue Aricept 5 mg daily and Namenda 5 mg twice a day for dementia. Optimize dose of these medications as an outpatient. * Continue Sinemet 25/100, 1 tablet 3 times a day for now. * Psychiatry also following, adjusting psych medications. * press worker helper intervention for possible placement.
[2022-08-21 16:25] LABS: Glucose,Whole Blood 350 mg/dL (70-110)
--- NOTE | 2022-08-21 16:50 | P.PN ---
Subjective Progress Note Date: 08/21/22 Thang Key, is a 71-year-old male who presented to [facility] emergency room due to generalized debility and mental status changes. Patient had a prolonged 2 recent admissions, initially he presented to emergency room about 3 weeks ago with severe constipation and bowel obstruction, he had mental status changes with poor speech and poor gait, he underwent colonoscopy with , he was evaluated by neurology and was diagnosed with advanced Parkinson disease, he was having episodes of confusion and agitation, he was evaluated by neurology and psychiatry and was transferred to [facility] for rehab, at [facility], patient was refusing to eat and refusing to take his pi lls he continued to decline and he was transferred back to [facility] emergency room. Patient was readmitted to the hospital he was seen again by neurology and psychiatry he was counseled in length in regards to taking his medications and eating his meals, he seems to have improved, he was asking to be discharged home, and his was willing to take him home and try to take care of him. However patient went home and was having agitation again and was not taking his medications, he was brought back to emergency room. On 08/21/2022 patient was seen and examined on the medical floor he is alert, responsive in no apparent distress, he is still having difficulty finding words, he had an episode of agitation and required a dose of IM Haldol at 2 AM, otherwise no complaints at this time, nursing staff state that he is compliant with taking his pills at this time however he has very minimal oral intake, patient denies any symptoms. Objective - Vital Signs Vital signs: Vital Signs Temp 97.8 F 08/21/22 01:40 Pulse 91 08/21/22 01:40 Resp 17 08/21/22 01:40 BP 137/69 08/21/22 01:40 Pulse Ox 95 08/21/22 01:40 FiO2 Intake & Output 08/20/22 08/21/22 08/21/22 18:59 06:59 18:59 Other: Voiding Method Urinal Diaper # Voids 1 4 - Exam In general patient is alert, slightly confused, has difficulty finding his words, in no apparent distress HEENT head normocephalic and atraumatic Neck is supple no JVD no goiter no lymphadenopathy no carotid bruit Chest examination is clear to auscultation no crackles no wheezing Cardiac exam reveals regular heart sounds S1 and S2 no gallops no murmurs Abdomen is soft nontender no organomegaly with normal bowel sounds Extremity exam reveals no edema no cyanosis or clubbing Neurological examination reveals the tremors and rigidity but no focal neurological deficit - Labs CBC & Chem 7: 08/21/22 10:53 08/21/22 10:53 Labs: Abnormal Lab Results - Last 24 Hours (Table) 08/19/22 08/20/22 08/20/22 Range/Units 20:19 11:25 16:29 POC Glucose (mg/dL) 339 H 434 H (70-110) mg/dL Hemoglobin A1c 8.2 H (0.0-6.0) % 08/20/22 08/21/22 Range/Units 19:30 06:15 POC Glucose (mg/dL) 353 H 131 H (70-110) mg/dL Hemoglobin A1c (0.0-6.0) % Assessment and Plan Plan: Mental status changes with agitation and confusion Recent diagnosis was advanced Parkinson disease Recent diagnosis was partial bowel obstruction Recent diagnosis of benign prostatic hypertrophy with urinary retention, started on Flomax Underlying history of insulin-dependent diabetes mellitus At this time patient is admitted to medical floor Home medications reviewed and reordered Consultation for neurology and psychiatry requested again Will check labs in a.m. For DVT prophylaxis subcu Lovenox Will follow closely
[2022-08-21 19:22] LABS: Glucose,Whole Blood 410 mg/dL (70-110)
[2022-08-21] MEDS: INSULIN DETEMIR (LEVEMIR) 100 UNIT/ML SYR SQ SCH (21:09)
[2022-08-21] MEDS: DONEPEZIL 5 MG TAB PO SCH (21:09)
[2022-08-21] MEDS: MIRTAZAPINE 15 MG TAB PO SCH (21:09)
[2022-08-22] MEDS: SODIUM CHLORIDE 0.9% 1,000 ML IV SCH (04:01)
[2022-08-22 05:54] LABS: Glucose,Whole Blood 102 mg/dL (70-110)
[2022-08-22] MEDS: INSULIN ASPART (NovoLOG) 100 UNIT/ML VIAL SQ SCH ×3 (06:34→17:57)
[2022-08-22] MEDS: ASPIRIN 325 MG TAB PO SCH (09:17)
[2022-08-22] MEDS: TAMSULOSIN 0.4 MG CAP.ER.24H PO SCH ×2 (09:17→21:56)
[2022-08-22] MEDS: MULTIVITAMINS, THERA 1 EACH TAB PO SCH (09:17)
[2022-08-22] MEDS: CALCIUM CARBONATE 500 MG CHEWABLE PO SCH (09:18)
[2022-08-22] MEDS: lamoTRIgine 100 MG TAB PO SCH ×2 (09:18→16:46)
[2022-08-22] MEDS: MEMANTINE 5 MG TAB PO SCH ×2 (09:18→21:56)
[2022-08-22] MEDS: lisinopriL 5 MG TAB PO SCH (09:18)
[2022-08-22] MEDS: CARBIDOPA-LEVODOPA 25-100 MG 1 EACH TAB PO SCH ×3 (09:18→16:46)
[2022-08-22] MEDS: ENOXAPARIN 40 MG/0.4 ML SYRINGE SQ SCH (09:18)
--- NOTE | 2022-08-22 09:43 | P.PN ---
Subjective Progress Note Date: 08/22/22 Thang Key, is a 71-year-old male who presented to [facility] emergency room due to generalized debility and mental status changes. Patient had a prolonged 2 recent admissions, initially he presented to emergency room about 3 weeks ago with severe constipation and bowel obstruction, he had mental status changes with poor speech and poor gait, he underwent colonoscopy with , he was evaluated by neurology and was diagnosed with advanced Parkinson disease, he was having episodes of confusion and agitation, he was evaluated by neurology and psychiatry and was transferred to [facility] for rehab, at [facility], patient was refusing to eat and refusing to take his pi lls he continued to decline and he was transferred back to [facility] emergency room. Patient was readmitted to the hospital he was seen again by neurology and psychiatry he was counseled in length in regards to taking his medications and eating his meals, he seems to have improved, he was asking to be discharged home, and his was willing to take him home and try to take care of him. However patient went home and was having agitation again and was not taking his medications, he was brought back to emergency room. On 08/21/2022 patient was seen and examined on the medical floor he is alert, responsive in no apparent distress, he is still having difficulty finding words, he had an episode of agitation and required a dose of IM Haldol at 2 AM, otherwise no complaints at this time, nursing staff state that he is compliant with taking his pills at this time however he has very minimal oral intake, patient denies any symptoms. On 08/22/2022 patient appears more alert and calm. Patient is responsive in no apparent distress. Per psychiatry plans for 2:30 family meeting to address initiation of scheduled antipsychotic medication. At this time patient denies chest pain or shortness of breath. Patient denies nausea vomiting or diarrhea. Patient denies any urinary burning or frequency Objective - Vital Signs Vital signs: Vital Signs Temp 98.6 F 08/22/22 08:00 Pulse 83 08/22/22 08:00 Resp 17 08/22/22 08:00 BP 111/64 08/22/22 08:00 Pulse Ox 96 08/22/22 08:00 FiO2 Intake & Output 08/21/22 08/22/22 08/22/22 18:59 06:59 18:59 Output Total 600 Balance -600 Output: Urine 600 Other: Voiding Method Urinal Diaper Diaper External Catheter # Voids 1 - Exam In general patient is alert, slightly confused, has difficulty finding his words, in no apparent distress HEENT head normocephalic and atraumatic Neck is supple no JVD no goiter no lymphadenopathy no carotid bruit Chest examination is clear to auscultation no crackles no wheezing Cardiac exam reveals regular heart sounds S1 and S2 no gallops no murmurs Abdomen is soft nontender no organomegaly with normal bowel sounds Extremity exam reveals no edema no cyanosis or clubbing Neurological examination reveals the tremors and rigidity but no focal neurological deficit - Labs CBC & Chem 7: 08/21/22 10:53 08/21/22 10:53 Labs: Abnormal Lab Results - Last 24 Hours (Table) 08/21/22 08/21/22 08/21/22 Range/Units 10:53 10:53 11:31 RBC 4.26 L (4.30-5.90) m/uL Hgb 12.9 L (13.0-17.5) gm/dL Hct 38.6 L (39.0-53.0) % Potassium 3.3 L (3.5-5.1) mmol/L BUN 22 H (9-20) mg/dL Glucose 51 L (74-99) mg/dL POC Glucose (mg/dL) 53 L (70-110) mg/dL Total Protein 6.0 L (6.3-8.2) g/dL 08/21/22 08/21/22 08/21/22 Range/Units 11:46 12:01 12:25 RBC (4.30-5.90) m/uL Hgb (13.0-17.5) gm/dL Hct (39.0-53.0) % Potassium (3.5-5.1) mmol/L BUN (9-20) mg/dL Glucose (74-99) mg/dL POC Glucose (mg/dL) 50 L 51 L 64 L (70-110) mg/dL Total Protein (6.3-8.2) g/dL 08/21/22 08/21/22 Range/Units 16:24 19:21 RBC (4.30-5.90) m/uL Hgb (13.0-17.5) gm/dL Hct (39.0-53.0) % Potassium (3.5-5.1) mmol/L BUN (9-20) mg/dL Glucose (74-99) mg/dL POC Glucose (mg/dL) 350 H 410 H (70-110) mg/dL Total Protein (6.3-8.2) g/dL Assessment and Plan Plan: Mental status changes with agitation and confusion Recent diagnosis was advanced Parkinson disease Recent diagnosis was partial bowel obstruction Recent diagnosis of benign prostatic hypertrophy with urinary retention, started on Flomax Underlying history of insulin-dependent diabetes mellitus At this time patient is admitted to medical floor Home medications reviewed and reordered Consultation for neurology and psychiatry requested again Family meeting with psychiatry services today at 08/22/2022 to discuss initiation of scheduled antipsychotic medication Will check labs in a.m. For DVT prophylaxis subcu Lovenox Will follow closely
[2022-08-22 11:18] LABS: Glucose,Whole Blood 91 mg/dL (70-110)
--- NOTE | 2022-08-22 14:48 | P.PN ---
Progress Note - Text Progress Note Date: 08/22/22 Interval History: Patient was seen resting in bed and was directable and agreeable to speak with the keno writer in his room. Currently, the patient is alert and oriented to person, place, and year. Next to him is his and joining the patient is his sister. Currently the patient has had an improvement in appetite. He did take his morning medications. He is noted by his to be irritable today. He continues to display word finding difficulty. He denies any SI, HI, AH, or VH. He reports he was able to sleep last night. Mental Status Exam: General Appearance: Patient appears to be stated age is alert, directable, and cooperative. Behavior: Patient is calmly seated without any agitated behavior. Psychomotor slowing is evident. Speech: Patient's speech is nonspontaneous, low in volume, one-word replies.Word finding difficulty. Mood/Affect: Mood is improving mildly, affect is flat. Suicidality/Homicidality: Patient denies having any suicidal or homicidal ideation intent or plan. Perceptions: Patient denies any visual hallucinations and denies any auditory hallucinations Though content/process: Thought blocking evident. No delusional thought content endorsed. Memory and concentration: He is alert and oriented to person and place. Judgment and insight: Improving mildly but at baseline poor Vital Signs Temp 98.6 F 08/22/22 08:00 Pulse 83 08/22/22 08:00 Resp 17 08/22/22 08:00 BP 111/64 08/22/22 08:00 Pulse Ox 96 08/22/22 08:00 FiO2 Intake & Output 08/21/22 08/22/22 08/22/22 18:59 06:59 18:59 Output Total 600 Balance -600 Output: Urine 600 Other: Voiding Method Urinal Diaper External Catheter Diaper External Catheter # Voids 1 Laboratory Results - Last 24 Hours 08/20/22 08/21/22 08/21/22 14:19 16:24 19:21 POC Glucose (mg/dL) 350 H 410 H POC Glu Mass Spectrometry Manager ID Bessy Oviedo Christian Lamotrigine 10.2 08/22/22 08/22/22 05:52 11:17 POC Glucose (mg/dL) 102 91 POC Glu Mass Spectrometry Manager ID Mayo, Kalib Shanna, Felicita Lamotrigine Assessment Major neurocognitive disorder with behavioral disturbances Rule out Parkinson's disease/Lewy body dementia Seizure disorder Hyperglycemia Vitamin B-12 deficiency Diabetes mellitus Plan: -Continue your medical management -At this time patient DOES NOT meet criteria for inpatient psychiatric admission. -Patient DOES NOT have decision making capacity at this time and is unable to reason through and communicate/appreciate the risks, benefits and alternatives to treatment. -Delirium precautions recommended with patient including - avoiding use of narcotics and RAISE DRILL OPERATOR sedatives, limit anticholinergic medications when possible, frequent re-orientation, minimize use of restraints, open window shades during the day and close them at night -Would recommend the following medication changes/additions: Continue Haldol to 3 mg IM q4H PRN for agitation Continue Remeron 7.5 mg at bedtime for appetite stimulation and insomnia Start Seroquel 25 mg po HS for dementia with behavior disturbances. - EKG reviewed. QTc <400ms -The risks, benefits, and treatment alternatives were discussed in detail with the patient and his and sister. The blackbox warning of increased cardiovacsular events in patients with dementia were discussed in great detail. We also discussed worsening of parkinsonian symptoms with antipsychotics. As the patient's expresses that she would like to address his behaviors so that he may eventually return home, the patient and his family are in agreement to starting seroquel. -Will continue to follow along
[2022-08-22 16:28] LABS: Glucose,Whole Blood 273 mg/dL (70-110)
--- NOTE | 2022-08-22 17:01 | P.PN ---
Progress Note - Text Progress Note Date: 08/22/22 on 08/22/2022 patient was seen and examined on the medical floor Admission was changed to inpatient due to severe irritability, mental status changes, and agitation still requiring IM Haldol, I am unable to discharge patient to get the due to above. Patient was seen again by psychiatry today and Seroquel was added to his medication regimen after a prolonged meeting with patient's and sister. Will reassess in a.m. to see if patient can be transferred to rehab. He was transferred to rehab last week but was sent back to the hospital due to his aggressive behavior to the staff, he was also sent home with his , but he returned to the hospital after a few hours. at this time will assess his condition tomorrow after starting Seroquel.
[2022-08-22] MEDS ORDERED: QUEtiapine 25 MG TAB PO SCH (21:00)
[2022-08-22 21:51] LABS: Glucose,Whole Blood 351 mg/dL (70-110)
[2022-08-22] MEDS: INSULIN DETEMIR (LEVEMIR) 100 UNIT/ML SYR SQ SCH (21:56)
[2022-08-22] MEDS: DONEPEZIL 5 MG TAB PO SCH (21:56)
[2022-08-22] MEDS: MIRTAZAPINE 15 MG TAB PO SCH (21:56)
[2022-08-22] MEDS: QUEtiapine 25 MG TAB PO SCH (21:56)
[2022-08-23 05:15] LABS: Methylmalonic Acid 0.11 umol/L (<0.40)
[2022-08-23 06:11] LABS: Glucose,Whole Blood 248 mg/dL (70-110)
[2022-08-23] MEDS: INSULIN ASPART (NovoLOG) 100 UNIT/ML VIAL SQ SCH ×3 (06:50→17:49)
[2022-08-23] MEDS: ASPIRIN 325 MG TAB PO SCH (08:39)
[2022-08-23] MEDS: lamoTRIgine 100 MG TAB PO SCH ×2 (08:40→17:49)
[2022-08-23] MEDS: TAMSULOSIN 0.4 MG CAP.ER.24H PO SCH ×3 (08:40→21:05)
[2022-08-23] MEDS: ENOXAPARIN 40 MG/0.4 ML SYRINGE SQ SCH (08:40)
[2022-08-23] MEDS: CALCIUM CARBONATE 500 MG CHEWABLE PO SCH (08:40)
[2022-08-23] MEDS: MULTIVITAMINS, THERA 1 EACH TAB PO SCH (08:40)
[2022-08-23] MEDS: CARBIDOPA-LEVODOPA 25-100 MG 1 EACH TAB PO SCH ×3 (08:40→17:49)
[2022-08-23] MEDS: lisinopriL 5 MG TAB PO SCH (08:40)
[2022-08-23] MEDS: MEMANTINE 5 MG TAB PO SCH ×2 (08:42→21:01)
[2022-08-23 10:37] LABS: Basophils # (A) 0.04 X 10*3/uL (0.00-0.10); Basophils % (A) 0.6 %; Eosinophils # (A) 0.33 X 10*3/uL (0.04-0.35); Eosinophils % (A) 4.6 %; HCT 37.9 % (39.6-50.0); HGB 12.2 g/dL (13.0-17.0); Immature Grans, Automated 0.1 %; Lymphocytes # (A) 1.73 X 10*3/uL (0.90-5.00); Lymphocytes % (A) 24.1 %; MCH 28.8 pg (27.0-32.0); MCHC 32.2 g/dL (32.0-37.0); MCV 89.4 fL (80.0-97.0); Mean Platelet Volume 11.7 fL (9.5-12.2); Monocytes # (A) 0.56 X 10*3/uL (0.20-1.00); Monocytes % (A) 7.8 %; NRBC Per 100 WBC 0 /100 WBCS (0.0-0.0); Neutrophils % (A) 62.8 %; Platelet Count 175 X 10*3/uL (140-440); RBC 4.24 X 10*6/uL (4.40-5.60); WBC 7.17 X 10*3/uL (4.50-10.00)
--- NOTE | 2022-08-23 11:34 | P.PN ---
Progress Note - Text Progress Note Date: 08/23/22 Interval History: Patient was seen resting in bed and was directable and agreeable to speak with the race and sports book writer in his room. Currently, the patient is alert and oriented to person, place, however identifies the year as 2022. He is not reporting any suicidal or homicidal ideation, intention, and/or plan. He denies any auditory or visual hallucinations. He reports he was able to eat some breakfast. He denies any issues regarding his sleep last night. He did take seroquel and reports no side effects to this provider. As per discussion with the patient's nurse, he has not displayed any acute or agitated behaviors for the past 72 hours. He did refuse medications this morning. No sundowning behaviors last night. Mental Status Exam: General Appearance: Patient appears to be stated age is alert, directable, and cooperative. Behavior: Patient is calmly seated without any agitated behavior. Psychomotor slowing is evident. Speech: Patient's speech is nonspontaneous, low in volume, one-word replies.Word finding difficulty. Mood/Affect: Mood is improving mildly, affect is blunted but more range today. Suicidality/Homicidality: Patient denies having any suicidal or homicidal ideation intent or plan. Perceptions: Patient denies any visual hallucinations and denies any auditory hallucinations Though content/process: Thought blocking evident. No delusional thought content endorsed. Memory and concentration: He is alert and oriented to person and place. Judgment and insight: Improving mildly Assessment Major neurocognitive disorder with behavioral disturbances Rule out Parkinson's disease/Lewy body dementia Seizure disorder Hyperglycemia Vitamin B-12 deficiency Diabetes mellitus Plan: -Continue your medical management -At this time patient DOES NOT meet criteria for inpatient psychiatric admission. Patient has not displayed any acute behaviors over the past 72 Hours. No sundowning behavior as per nurse last night. -Patient DOES NOT have decision making capacity at this time and is unable to reason through and communicate/appreciate the risks, benefits and alternatives to treatment. -Delirium precautions recommended with patient including - avoiding use of narcotics and LITIGATION SERVICES MANAGER sedatives, limit anticholinergic medications when possible, frequent re-orientation, minimize use of restraints, open window shades during the day and close them at night -Would recommend the following medication changes/additions: Continue Haldol 3 mg IM q4H PRN for agitation Continue Remeron 7.5 mg at bedtime for appetite stimulation and insomnia Continue Seroquel 25 mg po HS for dementia with behavior disturbances. - EKG reviewed. QTc <400ms -The risks, benefits, and treatment alternatives were discussed in detail with the patient and his and sister. The blackbox warning of increased cardiovacsular events in patients with dementia were discussed in great detail. We also discussed worsening of parkinsonian symptoms with antipsychotics. As the patient's expresses that she would like to address his behaviors so that he may eventually return home, the patient and his family are in agreement to use seroquel. -Patient is cleared psychiatrically for discharge as he has not displayed any acute behaviors. We will continue to follow while he is admitted to the hospital.
[2022-08-23 11:51] LABS: Glucose,Whole Blood 123 mg/dL (70-110)
[2022-08-23 11:59] LABS: African American GFR (CKD) 105.6 (60.0-200.0); Albumin 3.7 g/dL (3.8-4.9); Albumin/Globulin Ratio 1.73 (1.60-3.17); Anion Gap 9.9 mmol/L (10.00-18.00); BUN/Creat Ratio 22.85 Ratio (12.00-20.00); Blood Urea Nitrogen 18.3 mg/dL (9.0-27.0); Calcium 9.1 mg/dL (8.7-10.3); Carbon Dioxide 28.5 mmol/L (20.0-27.5); Globulin 2.1 g/dL (1.6-3.3); Non-African American GFR(CKD) 91.1 (60.0-200.0); Potassium 4.2 mmol/L (3.5-5.5); Total Bilirubin 0.3 mg/dL (0.30-1.20); Total Protein 5.8 g/dL (6.2-8.2)
[2022-08-23 16:45] LABS: Glucose,Whole Blood 222 mg/dL (70-110)
--- NOTE | 2022-08-23 18:04 | P.PN ---
Subjective Progress Note Date: 08/23/22 Thang Key, is a 71-year-old male who presented to [facility] emergency room due to generalized debility and mental status changes. Patient had a prolonged 2 recent admissions, initially he presented to emergency room about 3 weeks ago with severe constipation and bowel obstruction, he had mental status changes with poor speech and poor gait, he underwent colonoscopy with , he was evaluated by neurology and was diagnosed with advanced Parkinson disease, he was having episodes of confusion and agitation, he was evaluated by neurology and psychiatry and was transferred to [facility] for rehab, at [facility], patient was refusing to eat and refusing to take his pi lls he continued to decline and he was transferred back to [facility] emergency room. Patient was readmitted to the hospital he was seen again by neurology and psychiatry he was counseled in length in regards to taking his medications and eating his meals, he seems to have improved, he was asking to be discharged home, and his was willing to take him home and try to take care of him. However patient went home and was having agitation again and was not taking his medications, he was brought back to emergency room. On 08/21/2022 patient was seen and examined on the medical floor he is alert, responsive in no apparent distress, he is still having difficulty finding words, he had an episode of agitation and required a dose of IM Haldol at 2 AM, otherwise no complaints at this time, nursing staff state that he is compliant with taking his pills at this time however he has very minimal oral intake, patient denies any symptoms. On 08/22/2022 patient appears more alert and calm. Patient is responsive in no apparent distress. Per psychiatry plans for 2:30 family meeting to address initiation of scheduled antipsychotic medication. At this time patient denies chest pain or shortness of breath. Patient denies nausea vomiting or diarrhea. Patient denies any urinary burning or frequency. On 08/23/2022 patient was seen on the medical floor, he was slightly agitated and was refusing any physical exam, was at the bedside. Objective - Vital Signs Vital signs: Vital Signs Temp 98.3 F 08/23/22 08:00 Pulse 91 08/23/22 08:00 Resp 18 08/23/22 08:00 BP 110/67 08/23/22 08:00 Pulse Ox 93 L 08/23/22 08:00 FiO2 Intake & Output 08/22/22 08/23/22 08/23/22 18:59 06:59 18:59 Output Total 600 550 200 Balance -600 -550 -200 Output: Urine 600 550 200 Other: Voiding Method External Catheter Diaper External Catheter External Catheter - Exam In general patient is alert, slightly slightly agitated refusing physical exam - Labs CBC & Chem 7: 08/23/22 07:02 08/23/22 07:02 Labs: Abnormal Lab Results - Last 24 Hours (Table) 08/22/22 08/22/22 08/23/22 Range/Units 16:27 21:49 06:08 RBC (4.40-5.60) X 10*6/uL Hgb (13.0-17.0) g/dL Hct (39.6-50.0) % Carbon Dioxide (20.0-27.5) mmol/L Anion Gap (10.00-18.00) mmol/L BUN/Creatinine Ratio (12.00-20.00) Ratio Glucose (70-110) mg/dL POC Glucose (mg/dL) 273 H 351 H 248 H (70-110) mg/dL Total Protein (6.2-8.2) g/dL Albumin (3.8-4.9) g/dL 08/23/22 08/23/22 08/23/22 Range/Units 07:02 07:02 11:49 RBC 4.24 L (4.40-5.60) X 10*6/uL Hgb 12.2 L (13.0-17.0) g/dL Hct 37.9 L (39.6-50.0) % Carbon Dioxide 28.5 H (20.0-27.5) mmol/L Anion Gap 9.90 L (10.00-18.00) mmol/L BUN/Creatinine Ratio 22.85 H (12.00-20.00) Ratio Glucose 217 H (70-110) mg/dL POC Glucose (mg/dL) 123 H (70-110) mg/dL Total Protein 5.8 L (6.2-8.2) g/dL Albumin 3.7 L (3.8-4.9) g/dL Assessment and Plan Plan: Mental status changes with agitation and confusion Recent diagnosis was advanced Parkinson disease Recent diagnosis was partial bowel obstruction Recent diagnosis of benign prostatic hypertrophy with urinary retention, started on Flomax Underlying history of insulin-dependent diabetes mellitus At this time patient is admitted to medical floor Home medications reviewed and reordered Consultation for neurology and psychiatry requested again Family meeting with psychiatry services today at 08/22/2022 to discuss initiat ion of scheduled antipsychotic medication Will check labs in a.m. For DVT prophylaxis subcu Lovenox Will follow closely
[2022-08-23 20:27] LABS: Glucose,Whole Blood 358 mg/dL (70-110)
[2022-08-23] MEDS: INSULIN DETEMIR (LEVEMIR) 100 UNIT/ML SYR SQ SCH (20:55)
[2022-08-23] MEDS: MIRTAZAPINE 15 MG TAB PO SCH (21:01)
[2022-08-23] MEDS: QUEtiapine 25 MG TAB PO SCH (21:01)
[2022-08-23] MEDS: DONEPEZIL 5 MG TAB PO SCH (21:01)
[2022-08-24 06:10] LABS: Glucose,Whole Blood 258 mg/dL (70-110)
[2022-08-24] MEDS: INSULIN ASPART (NovoLOG) 100 UNIT/ML VIAL SQ SCH ×3 (06:38→17:00)
[2022-08-24 09:32] LABS: Basophils # (A) 0.03 X 10*3/uL (0.00-0.10); Basophils % (A) 0.3 %; Eosinophils # (A) 0.26 X 10*3/uL (0.04-0.35); Eosinophils % (A) 2.7 %; HCT 37.8 % (39.6-50.0); HGB 12.3 g/dL (13.0-17.0); Immature Grans, Automated 0.2 %; Lymphocytes # (A) 1.93 X 10*3/uL (0.90-5.00); MCH 28.8 pg (27.0-32.0); MCHC 32.5 g/dL (32.0-37.0); MCV 88.5 fL (80.0-97.0); Mean Platelet Volume 11.6 fL (9.5-12.2); Monocytes # (A) 0.81 X 10*3/uL (0.20-1.00); Monocytes % (A) 8.4 %; NRBC Per 100 WBC 0 /100 WBCS (0.0-0.0); Neutrophils # (A) 6.59 X 10*3/uL (1.80-7.70); Neutrophils % (A) 68.4 %; Platelet Count 190 X 10*3/uL (140-440); RBC 4.27 X 10*6/uL (4.40-5.60); RDW 13.2 % (11.5-14.5); WBC 9.64 X 10*3/uL (4.50-10.00)
[2022-08-24 09:53] LABS: African American GFR (CKD) 102.5 (60.0-200.0); Albumin 3.7 g/dL (3.8-4.9); Albumin/Globulin Ratio 1.8 (1.60-3.17); Anion Gap 9.5 mmol/L (10.00-18.00); BUN/Creat Ratio 21.93 Ratio (12.00-20.00); Blood Urea Nitrogen 18.9 mg/dL (9.0-27.0); Calcium 9.2 mg/dL (8.7-10.3); Carbon Dioxide 28.6 mmol/L (20.0-27.5); Non-African American GFR(CKD) 88.4 (60.0-200.0); Potassium 4.3 mmol/L (3.5-5.5); Total Bilirubin 0.3 mg/dL (0.30-1.20); Total Protein 5.7 g/dL (6.2-8.2)
[2022-08-24] MEDS: ENOXAPARIN 40 MG/0.4 ML SYRINGE SQ SCH (10:25)
[2022-08-24] MEDS: MULTIVITAMINS, THERA 1 EACH TAB PO SCH (10:25)
[2022-08-24] MEDS: TAMSULOSIN 0.4 MG CAP.ER.24H PO SCH ×2 (10:25→23:00)
[2022-08-24] MEDS: ASPIRIN 325 MG TAB PO SCH (10:25)
[2022-08-24] MEDS: MEMANTINE 5 MG TAB PO SCH ×2 (10:25→23:00)
[2022-08-24] MEDS: lisinopriL 5 MG TAB PO SCH (10:25)
[2022-08-24] MEDS: lamoTRIgine 100 MG TAB PO SCH ×2 (10:25→17:02)
[2022-08-24] MEDS: CARBIDOPA-LEVODOPA 25-100 MG 1 EACH TAB PO SCH ×3 (10:25→17:02)
--- NOTE | 2022-08-24 11:10 | P.PN ---
Subjective Progress Note Date: 08/24/22 Thang Key, is a 71-year-old male who presented to [facility] emergency room due to generalized debility and mental status changes. Patient had a prolonged 2 recent admissions, initially he presented to emergency room about 3 weeks ago with severe constipation and bowel obstruction, he had mental status changes with poor speech and poor gait, he underwent colonoscopy with , he was evaluated by neurology and was diagnosed with advanced Parkinson disease, he was having episodes of confusion and agitation, he was evaluated by neurology and psychiatry and was transferred to [facility] for rehab, at [facility], patient was refusing to eat and refusing to take his pi lls he continued to decline and he was transferred back to [facility] emergency room. Patient was readmitted to the hospital he was seen again by neurology and psychiatry he was counseled in length in regards to taking his medications and eating his meals, he seems to have improved, he was asking to be discharged home, and his was willing to take him home and try to take care of him. However patient went home and was having agitation again and was not taking his medications, he was brought back to emergency room. On 08/21/2022 patient was seen and examined on the medical floor he is alert, responsive in no apparent distress, he is still having difficulty finding words, he had an episode of agitation and required a dose of IM Haldol at 2 AM, otherwise no complaints at this time, nursing staff state that he is compliant with taking his pills at this time however he has very minimal oral intake, patient denies any symptoms. On 08/22/2022 patient appears more alert and calm. Patient is responsive in no apparent distress. Per psychiatry plans for 2:30 family meeting to address initiation of scheduled antipsychotic medication. At this time patient denies chest pain or shortness of breath. Patient denies nausea vomiting or diarrhea. Patient denies any urinary burning or frequency. On 08/23/2022 patient was seen on the medical floor, he was slightly agitated and was refusing any physical exam, was at the bedside. On 08/24/2022 patient is resting comfortably currently in chair. Per nursing staff patient did take Seroquel prior to bedtime but did have increased agitation throughout the night patient also refused multiple medications morning and yesterday. Per nursing staff psychiatry services to come and reevaluate patient. Objective - Vital Signs Vital signs: Vital Signs Temp 98.6 F 08/24/22 08:00 Pulse 91 08/24/22 08:00 Resp 16 08/24/22 08:00 BP 112/62 08/24/22 08:00 Pulse Ox 95 08/24/22 08:00 FiO2 Intake & Output 08/23/22 08/24/22 08/24/22 18:59 06:59 18:59 Output Total 200 Balance -200 Output: Urine 200 Other: Voiding Method External Catheter Diaper Incontinent # Voids 2 # Bowel Movements 1 - Exam In general patient is alert, slightly slightly agitated refusing physical exam - Labs CBC & Chem 7: 08/24/22 05:32 08/24/22 05:32 Labs: Abnormal Lab Results - Last 24 Hours (Table) 08/23/22 08/23/22 08/23/22 Range/Units 07:02 11:49 16:43 RBC (4.40-5.60) X 10*6/uL Hgb (13.0-17.0) g/dL Hct (39.6-50.0) % Carbon Dioxide 28.5 H (20.0-27.5) mmol/L Anion Gap 9.90 L (10.00-18.00) mmol/L BUN/Creatinine Ratio 22.85 H (12.00-20.00) Ratio Glucose 217 H (70-110) mg/dL POC Glucose (mg/dL) 123 H 222 H (70-110) mg/dL Total Protein 5.8 L (6.2-8.2) g/dL Albumin 3.7 L (3.8-4.9) g/dL 08/23/22 08/24/22 08/24/22 Range/Units 20:25 05:32 05:32 RBC 4.27 L (4.40-5.60) X 10*6/uL Hgb 12.3 L (13.0-17.0) g/dL Hct 37.8 L (39.6-50.0) % Carbon Dioxide 28.6 H (20.0-27.5) mmol/L Anion Gap 9.50 L (10.00-18.00) mmol/L BUN/Creatinine Ratio 21.93 H (12.00-20.00) Ratio Glucose 270 H (70-110) mg/dL POC Glucose (mg/dL) 358 H (70-110) mg/dL Total Protein 5.7 L (6.2-8.2) g/dL Albumin 3.7 L (3.8-4.9) g/dL 08/24/22 Range/Units 06:09 RBC (4.40-5.60) X 10*6/uL Hgb (13.0-17.0) g/dL Hct (39.6-50.0) % Carbon Dioxide (20.0-27.5) mmol/L Anion Gap (10.00-18.00) mmol/L BUN/Creatinine Ratio (12.00-20.00) Ratio Glucose (70-110) mg/dL POC Glucose (mg/dL) 258 H (70-110) mg/dL Total Protein (6.2-8.2) g/dL Albumin (3.8-4.9) g/dL Assessment and Plan Plan: Mental status changes with agitation and confusion Recent diagnosis was advanced Parkinson disease Recent diagnosis was partial bowel obstruction Recent diagnosis of benign prostatic hypertrophy with urinary retention, started on Flomax Underlying history of insulin-dependent diabetes mellitus At this time patient is admitted to medical floor Home medications reviewed and reordered Consultation for neurology and psychiatry requested again Family meeting with psychiatry services today at 08/22/2022 to discuss initiation of scheduled antipsychotic medication Patient started on Seroquel Starting Aricept and Namenda per neurology Will check labs in a.m. For DVT prophylaxis subcu Lovenox Will follow closely
[2022-08-24 11:34] LABS: Glucose,Whole Blood 84 mg/dL (70-110)
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
[2022-08-24] MEDS: CALCIUM CARBONATE 500 MG CHEWABLE PO SCH (13:56)
[2022-08-24 16:35] LABS: Glucose,Whole Blood 248 mg/dL (70-110)
[2022-08-24 19:41] LABS: Glucose,Whole Blood 282 mg/dL (70-110)
[2022-08-24] MEDS: INSULIN DETEMIR (LEVEMIR) 100 UNIT/ML SYR SQ SCH (22:59)
[2022-08-24] MEDS: MIRTAZAPINE 15 MG TAB PO SCH (22:59)
[2022-08-24] MEDS: QUEtiapine 25 MG TAB PO SCH (23:00)
[2022-08-24] MEDS: DONEPEZIL 5 MG TAB PO SCH (23:00)
[2022-08-25 05:49] LABS: Glucose,Whole Blood 304 mg/dL (70-110)
[2022-08-25] MEDS: INSULIN ASPART (NovoLOG) 100 UNIT/ML VIAL SQ SCH ×3 (06:13→17:57)
[2022-08-25] MEDS: lamoTRIgine 100 MG TAB PO SCH ×2 (08:09→17:56)
[2022-08-25] MEDS: ENOXAPARIN 40 MG/0.4 ML SYRINGE SQ SCH (08:09)
[2022-08-25] MEDS: TAMSULOSIN 0.4 MG CAP.ER.24H PO SCH ×2 (08:09→21:13)
[2022-08-25] MEDS: MEMANTINE 5 MG TAB PO SCH ×2 (08:09→21:14)
[2022-08-25] MEDS: MULTIVITAMINS, THERA 1 EACH TAB PO SCH (08:09)
[2022-08-25] MEDS: CARBIDOPA-LEVODOPA 25-100 MG 1 EACH TAB PO SCH ×3 (08:09→17:56)
[2022-08-25] MEDS: lisinopriL 5 MG TAB PO SCH (08:09)
[2022-08-25] MEDS: ASPIRIN 325 MG TAB PO SCH (08:09)
[2022-08-25] MEDS: QUEtiapine 25 MG TAB PO SCH ×2 (08:09→21:14)
[2022-08-25] MEDS: CALCIUM CARBONATE 500 MG CHEWABLE PO SCH (08:09)
[2022-08-25 11:20] LABS: Basophils # (A) 0.04 X 10*3/uL (0.00-0.10); Basophils % (A) 0.5 %; Eosinophils # (A) 0.43 X 10*3/uL (0.04-0.35); Eosinophils % (A) 5.8 %; HCT 39.1 % (39.6-50.0); HGB 12.6 g/dL (13.0-17.0); Immature Grans, Automated 0.4 %; Lymphocytes # (A) 1.86 X 10*3/uL (0.90-5.00); MCH 28.7 pg (27.0-32.0); MCHC 32.2 g/dL (32.0-37.0); MCV 89.1 fL (80.0-97.0); Monocytes # (A) 0.61 X 10*3/uL (0.20-1.00); Monocytes % (A) 8.2 %; NRBC Per 100 WBC 0 /100 WBCS (0.0-0.0); Neutrophils # (A) 4.46 X 10*3/uL (1.80-7.70); Neutrophils % (A) 60.1 %; Platelet Count 203 X 10*3/uL (140-440); RBC 4.39 X 10*6/uL (4.40-5.60); RDW 13.2 % (11.5-14.5); WBC 7.43 X 10*3/uL (4.50-10.00)
[2022-08-25 11:27] LABS: African American GFR (CKD) 107.3 (60.0-200.0); Albumin 3.8 g/dL (3.8-4.9); Albumin/Globulin Ratio 1.84 (1.60-3.17); Anion Gap 8.7 mmol/L (10.00-18.00); BUN/Creat Ratio 21.01 Ratio (12.00-20.00); Blood Urea Nitrogen 16.2 mg/dL (9.0-27.0); Calcium 9.2 mg/dL (8.7-10.3); Carbon Dioxide 29.5 mmol/L (20.0-27.5); Globulin 2.1 g/dL (1.6-3.3); Non-African American GFR(CKD) 92.5 (60.0-200.0); Potassium 4.1 mmol/L (3.5-5.5); Total Bilirubin 0.2 mg/dL (0.30-1.20); Total Protein 5.9 g/dL (6.2-8.2)
[2022-08-25 11:48] LABS: Glucose,Whole Blood 121 mg/dL (70-110)
--- NOTE | 2022-08-25 14:22 | P.PN ---
Subjective Progress Note Date: 08/25/22 Thang Key, is a 71-year-old male who presented to [facility] emergency room due to generalized debility and mental status changes. Patient had a prolonged 2 recent admissions, initially he presented to emergency room about 3 weeks ago with severe constipation and bowel obstruction, he had mental status changes with poor speech and poor gait, he underwent colonoscopy with , he was evaluated by neurology and was diagnosed with advanced Parkinson disease, he was having episodes of confusion and agitation, he was evaluated by neurology and psychiatry and was transferred to [facility] for rehab, at [facility], patient was refusing to eat and refusing to take his pi lls he continued to decline and he was transferred back to [facility] emergency room. Patient was readmitted to the hospital he was seen again by neurology and psychiatry he was counseled in length in regards to taking his medications and eating his meals, he seems to have improved, he was asking to be discharged home, and his was willing to take him home and try to take care of him. However patient went home and was having agitation again and was not taking his medications, he was brought back to emergency room. On 08/21/2022 patient was seen and examined on the medical floor he is alert, responsive in no apparent distress, he is still having difficulty finding words, he had an episode of agitation and required a dose of IM Haldol at 2 AM, otherwise no complaints at this time, nursing staff state that he is compliant with taking his pills at this time however he has very minimal oral intake, patient denies any symptoms. On 08/22/2022 patient appears more alert and calm. Patient is responsive in no apparent distress. Per psychiatry plans for 2:30 family meeting to address initiation of scheduled antipsychotic medication. At this time patient denies chest pain or shortness of breath. Patient denies nausea vomiting or diarrhea. Patient denies any urinary burning or frequency. On 08/23/2022 patient was seen on the medical floor, he was slightly agitated and was refusing any physical exam, was at the bedside. On 08/24/2022 patient is resting comfortably currently in chair. Per nursing staff patient did take Seroquel prior to bedtime but did have increased agitation throughout the night patient also refused multiple medications morning and yesterday. Per nursing staff psychiatry services to come and reevaluate patient. On 08/25/2022 patient was seen and examined on the medical floor he is alert and oriented 3 in no apparent distress he is more cooperative today he is taking his medications and eating some of his food he denies any complaints at this Objective - Vital Signs Vital signs: Vital Signs Temp 98.0 F 08/25/22 02:00 Pulse 82 08/25/22 02:00 Resp 17 08/25/22 02:00 BP 123/65 08/25/22 02:00 Pulse Ox 95 08/25/22 02:00 FiO2 Intake & Output 08/24/22 08/25/22 08/25/22 18:59 06:59 18:59 Output Total 300 Balance -300 Output: Urine 300 Other: Voiding Method Diaper Diaper # Voids 6 # Bowel Movements 1 - Exam In general patient is alert and oriented x 3 in no distress HEENT head normocephalic and atraumatic Neck is supple no JVD no goiter no lymphadenopathy no carotid bruit Chest examination is clear to auscultation no crackles no wheezing Cardiac exam reveals regular heart sounds S1 and S2 no gallops no murmurs Abdomen is soft nontender no organomegaly with normal bowel sounds Extremity exam reveals no edema no cyanosis or clubbing Neurological examination reveals no gross focal deficits - Labs CBC & Chem 7: 08/25/22 07:16 08/25/22 07:16 Labs: Abnormal Lab Results - Last 24 Hours (Table) 08/24/22 08/24/22 08/24/22 Range/Units 05:32 05:32 16:34 RBC 4.27 L (4.40-5.60) X 10*6/uL Hgb 12.3 L (13.0-17.0) g/dL Hct 37.8 L (39.6-50.0) % Carbon Dioxide 28.6 H (20.0-27.5) mmol/L Anion Gap 9.50 L (10.00-18.00) mmol/L BUN/Creatinine Ratio 21.93 H (12.00-20.00) Ratio Glucose 270 H (70-110) mg/dL POC Glucose (mg/dL) 248 H (70-110) mg/dL Total Protein 5.7 L (6.2-8.2) g/dL Albumin 3.7 L (3.8-4.9) g/dL 08/24/22 08/25/22 Range/Units 19:40 05:48 RBC (4.40-5.60) X 10*6/uL Hgb (13.0-17.0) g/dL Hct (39.6-50.0) % Carbon Dioxide (20.0-27.5) mmol/L Anion Gap (10.00-18.00) mmol/L BUN/Creatinine Ratio (12.00-20.00) Ratio Glucose (70-110) mg/dL POC Glucose (mg/dL) 282 H 304 H (70-110) mg/dL Total Protein (6.2-8.2) g/dL Albumin (3.8-4.9) g/dL Assessment and Plan Plan: Mental status changes with agitation and confusion Recent diagnosis was advanced Parkinson disease Recent diagnosis was partial bowel obstruction Recent diagnosis of benign prostatic hypertrophy with urinary retention, started on Flomax Underlying history of insulin-dependent diabetes mellitus At this time patient is admitted to medical floor Home medications reviewed and reordered Consultation for neurology and psychiatry requested again Family meeting with psychiatry services today at 08/22/2022 to discuss i nitiation of scheduled antipsychotic medication Patient started on Seroquel Starting Aricept and Namenda per neurology Will check labs in a.m. For DVT prophylaxis subcu Danisha Will follow closely Psychiatry on planning to transfer patient to her inpatient geriatric psychiatry unit
[2022-08-25 16:26] LABS: Glucose,Whole Blood 249 mg/dL (70-110)
[2022-08-25 20:30] LABS: Glucose,Whole Blood 312 mg/dL (70-110)
[2022-08-25] MEDS: INSULIN DETEMIR (LEVEMIR) 100 UNIT/ML SYR SQ SCH (21:13)
[2022-08-25] MEDS: MIRTAZAPINE 15 MG TAB PO SCH (21:14)
[2022-08-25] MEDS: DONEPEZIL 5 MG TAB PO SCH (21:14)
[2022-08-26 06:20] LABS: Glucose,Whole Blood 205 mg/dL (70-110)
[2022-08-26] MEDS: INSULIN ASPART (NovoLOG) 100 UNIT/ML VIAL SQ SCH ×3 (06:39→16:59)
[2022-08-26] MEDS: CARBIDOPA-LEVODOPA 25-100 MG 1 EACH TAB PO SCH ×3 (07:56→16:59)
[2022-08-26] MEDS: lamoTRIgine 100 MG TAB PO SCH ×2 (07:56→16:59)
[2022-08-26] MEDS: lisinopriL 5 MG TAB PO SCH (07:57)
[2022-08-26] MEDS: ASPIRIN 325 MG TAB PO SCH (08:01)
[2022-08-26] MEDS: MULTIVITAMINS, THERA 1 EACH TAB PO SCH (08:01)
[2022-08-26] MEDS: QUEtiapine 25 MG TAB PO SCH ×2 (08:01→22:16)
[2022-08-26] MEDS: MEMANTINE 5 MG TAB PO SCH ×2 (08:01→22:16)
[2022-08-26] MEDS: TAMSULOSIN 0.4 MG CAP.ER.24H PO SCH ×2 (08:01→22:15)
[2022-08-26] MEDS: ENOXAPARIN 40 MG/0.4 ML SYRINGE SQ SCH (08:01)
--- NOTE | 2022-08-26 11:07 | P.PN ---
Subjective Progress Note Date: 08/26/22 Thang Key, is a 71-year-old male who presented to [facility] emergency room due to generalized debility and mental status changes. Patient had a prolonged 2 recent admissions, initially he presented to emergency room about 3 weeks ago with severe constipation and bowel obstruction, he had mental status changes with poor speech and poor gait, he underwent colonoscopy with , he was evaluated by neurology and was diagnosed with advanced Parkinson disease, he was having episodes of confusion and agitation, he was evaluated by neurology and psychiatry and was transferred to [facility] for rehab, at [facility], patient was refusing to eat and refusing to take his pills he continued to decline and he was transferred back to [facility] emergency room. Patient was readmitted to the hospital he was seen again by neurology and psychiatry he was counseled in length in regards to taking his medications and eating his meals, he seems to have improved, he was asking to be discharged home, and his was willing to take him home and try to take care of him. However patient went home and was having agitation again and was not taking his medications, he was brought back to emergency room. On 08/21/2022 patient was seen and examined on the medical floor he is alert, responsive in no apparent distress, he is still having difficulty finding words, he had an episode of agitation and required a dose of IM Haldol at 2 AM, otherwise no complaints at this time, nursing staff state that he is compliant with taking his pills at this time however he has very minimal oral intake, patient denies any symptoms. On 08/22/2022 patient appears more alert and calm. Patient is responsive in no apparent distress. Per psychiatry plans for 2:30 family meeting to address initiation of scheduled antipsychotic medication. At this time patient denies chest pain or shortness of breath. Patient denies nausea vomiting or diarrhea. Patient denies any urinary burning or frequency. On 08/23/2022 patient was seen on the medical floor, he was slightly agitated and was refusing any physical exam, was at the bedside. On 08/24/2022 patient is resting comfortably currently in chair. Per nursing staff patient did take Seroquel prior to bedtime but did have increased agitation throughout the night patient also refused multiple medications morning and yesterday. Per nursing staff psychiatry services to come and reevaluate patient. On 08/25/2022 patient was seen and examined on the medical floor he is alert and oriented 3 in no apparent distress he is more cooperative today he is taking his medications and eating some of his food he denies any complaints at this On 08/26/2022 patient is currently asleep resting in bed. Awaiting inpatient geriatric psychiatry placement. Current vital signs temp 98.3, heart rate 96, respiratory rate 18, blood pressure 126/70 with pulse ox 95% on room air Objective - Vital Signs Vital signs: Vital Signs Temp 98.3 F 08/26/22 08:00 Pulse 96 08/26/22 08:00 Resp 18 08/26/22 08:00 BP 126/78 08/26/22 08:00 Pulse Ox 95 08/26/22 08:00 FiO2 Intake & Output 08/25/22 08/26/22 08/26/22 18:59 06:59 18:59 Output Total 300 400 Balance -300 -400 Output: Urine 300 400 Other: Voiding Method Diaper # Voids 2 # Bowel Movements 1 - Exam In general patient is alert and oriented x 3 in no distress HEENT head normocephalic and atraumatic Neck is supple no JVD no goiter no lymphadenopathy no carotid bruit Chest examination is clear to auscultation no crackles no wheezing Cardiac exam reveals regular heart sounds S1 and S2 no gallops no murmurs Abdomen is soft nontender no organomegaly with normal bowel sounds Extremity exam reveals no edema no cyanosis or clubbing Neurological examination reveals no gross focal deficits - Labs CBC & Chem 7: 08/25/22 07:16 08/25/22 07:16 Labs: Abnormal Lab Results - Last 24 Hours (Table) 08/25/22 08/25/22 08/25/22 Range/Units 07:16 07:16 11:46 RBC 4.39 L (4.40-5.60) X 10*6/uL Hgb 12.6 L (13.0-17.0) g/dL Hct 39.1 L (39.6-50.0) % Eosinophils # 0.43 H (0.04-0.35) X 10*3/uL Carbon Dioxide 29.5 H (20.0-27.5) mmol/L Anion Gap 8.70 L (10.00-18.00) mmol/L BUN/Creatinine Ratio 21.01 H (12.00-20.00) Ratio Glucose 219 H (70-110) mg/dL POC Glucose (mg/dL) 121 H (70-110) mg/dL Total Bilirubin 0.20 L (0.30-1.20) mg/dL Total Protein 5.9 L (6.2-8.2) g/dL 08/25/22 08/25/22 08/26/22 Range/Units 16:24 20:29 06:18 RBC (4.40-5.60) X 10*6/uL Hgb (13.0-17.0) g/dL Hct (39.6-50.0) % Eosinophils # (0.04-0.35) X 10*3/uL Carbon Dioxide (20.0-27.5) mmol/L Anion Gap (10.00-18.00) mmol/L BUN/Creatinine Ratio (12.00-20.00) Ratio Glucose (70-110) mg/dL POC Glucose (mg/dL) 249 H 312 H 205 H (70-110) mg/dL Total Bilirubin (0.30-1.20) mg/dL Total Protein (6.2-8.2) g/dL Assessment and Plan Assessment: Mental status changes with agitation and confusion Recent diagnosis was advanced Parkinson disease Recent diagnosis was partial bowel obstruction Recent diagnosis of benign prostatic hypertrophy with urinary retention, started on Flomax Underlying history of insulin-dependent diabetes mellitus At this time patient is admitted to medical floor Home medications reviewed and reordered Consultation for neurology and psychiatry requested again Family meeting with psychiatry services today at 08/22/2022 to discuss initiation of scheduled antipsychotic medication Patient started on Seroquel Starting Aricept and Namenda per neurology Will check labs in a.m. For DVT prophylaxis subcu Lovenox Will follow closely Psychiatry on planning to transfer patient to her inpatient geriatric psychiatry unit
[2022-08-26 11:34] LABS: Glucose,Whole Blood 236 mg/dL (70-110)
[2022-08-26] MEDS: CALCIUM CARBONATE 500 MG CHEWABLE PO SCH (12:46)
--- NOTE | 2022-08-26 15:50 | P.PN ---
Progress Note - Text Progress Note Date: 08/26/22 Interval History: Patient was seen resting in bed with the lights off. He was directable and agreeable to speak with the adjusto writer operator in his room, however he did appear to have an irritable edge. He states he just wants to go home. He is oriented to person and place. He is not reporting any suicidal or homicidal ideation, intention, and/or plan. He denies any auditory or visual hallucinations. He reports he was able to eat breakfast and lunch. He denies any issues regarding his sleep. He is compliant with his medications and he denies side effects. Discussed with nurse who reports no agitation for more than 72 hours. He has been cooperative, and no sundowning behaviors reported. No PRN Haldol has been required. Mental Status Exam: General Appearance: Patient appears to be stated age, slender elderly male laying in bed with covers on. Behavior: Patient is calmly laying in bed without any agitated behavior. Psychomotor slowing is evident. Speech: Patient's speech is normal in volume and tone. Mood/Affect: Mood is fine, affect is blunted. Suicidality/Homicidality: Patient denies having any suicidal or homicidal ideation intent or plan. Perceptions: Patient denies any visual hallucinations and denies any auditory hallucinations Though content/process: No delusional thought content endorsed. Thoughts linear and goal-directed. Memory and concentration: He is alert and oriented to person and place. Judgment and insight: Improving mildly Assessment Major neurocognitive disorder with behavioral disturbances Rule out Parkinson's disease/Lewy body dementia Seizure disorder Hyperglycemia Vitamin B-12 deficiency Diabetes mellitus Plan: -Continue your medical management -At this time patient DOES NOT meet criteria for inpatient psychiatric admission. Patient has not displayed any acute behaviors for more than 72 hours. No sundowning behaviors reported. -Patient DOES NOT have decision making capacity at this time and is unable to reason through and communicate/appreciate the risks, benefits and alternatives to treatment. -Delirium precautions recommended with patient including - avoiding use of narcotics and MANAGER SYSTEM sedatives, limit anticholinergic medications when possible, frequent re-orientation, minimize use of restraints, open window shades during the day and close them at night -Would recommend the following medication changes/additions: Continue Haldol 3 mg IM q4H PRN for agitation Continue Remeron 7.5 mg at bedtime for appetite stimulation and insomnia Continue Seroquel 25 mg po HS for dementia with behavior disturbances. -Patient is cleared psychiatrically for discharge as he has not displayed any acute behaviors. We will continue to follow while he is admitted to the hospital.
[2022-08-26 16:20] LABS: Glucose,Whole Blood 255 mg/dL (70-110)
[2022-08-26 19:28] LABS: Glucose,Whole Blood 267 mg/dL (70-110)
[2022-08-26] MEDS: INSULIN DETEMIR (LEVEMIR) 100 UNIT/ML SYR SQ SCH (22:15)
[2022-08-26] MEDS: MIRTAZAPINE 15 MG TAB PO SCH (22:15)
[2022-08-26] MEDS: DONEPEZIL 5 MG TAB PO SCH (22:16)
--- NOTE | 2022-08-26 23:31 | P.PN ---
Subjective Progress Note Date: 08/22/22 Patient was seen for a follow-up. Patient is laying in the bed. He denies headache, no dizziness. Patient's mentation is improved. He is sleepy. Objective - Vital Signs Vital signs: Vital Signs Temp 97.9 F 08/26/22 19:24 Pulse 99 08/26/22 19:24 Resp 17 08/26/22 19:24 BP 115/73 08/26/22 19:24 Pulse Ox 100 08/26/22 19:24 FiO2 Intake & Output 08/26/22 08/26/22 08/27/22 06:59 18:59 06:59 Output Total 400 Balance -400 Output: Urine 400 Other: Voiding Method Diaper # Voids 2 1 # Bowel Movements 1 1 - Exam Patient is laying in the bed. Patient's speech is more clear. Patient knows his name, and his date of . Patient states the year is 2019, but then changed to . He could not tell the current month or the year. He knows name of the current president Mr. Teja Nelson. He knows that he lives in [facility]. Knows name of street he lives in. His face is symmetric. The strength of his residential life director, biceps and triceps are normal. He did not cooperate for testing of the lower extremities. - Labs CBC & Chem 7: 08/25/22 07:16 08/25/22 07:16 Labs: Abnormal Lab Results - Last 24 Hours (Table) 08/26/22 08/26/22 08/26/22 Range/Units 06:18 11:32 16:18 POC Glucose (mg/dL) 205 H 236 H 255 H (70-110) mg/dL 08/26/22 Range/Units 19:27 POC Glucose (mg/dL) 267 H (70-110) mg/dL Assessment and Plan Assessment: * Dementia with behavioral disturbance. * Possible parkinsonism. Rule out Lewy body dementia * Diabetes * Hypertension * Previous history of seizure disorder Plan: * EEG 08/21/2022 was abnormal due to background slowing of at least moderate degree. This is suggestive of generalized cerebral dysfunction as can be seen with toxic metabolic encephalopathy or related to diffuse structural brain abnormality. Clinical correlation is recommended. No epileptiform activity was seen. Patient on Lamictal 200 mg twice a day. * B12 836, folate 12.8. MMA 0.11, B1 88, Lamictal level 10.2 (2-15) and RPR nonreactive * Continue Aricept 5 mg daily and Namenda 5 mg twice a day for dementia. Optimize dose of these medications as an outpatient. * Continue Sinemet 25/100, 1 tablet 3 times a day for now. * Psychiatry also following, adjusting psych medications. * welfare eligibility worker intervention for possible placement. * Psychiatry closely following. * Neurology will sign off. Please reconsult if any questions.
[2022-08-27 06:19] LABS: Glucose,Whole Blood 288 mg/dL (70-110)
[2022-08-27] MEDS: INSULIN ASPART (NovoLOG) 100 UNIT/ML VIAL SQ SCH ×2 (06:42→14:14)
[2022-08-27 08:21] VITALS: RESP 17
[2022-08-27 10:03] LABS: ALT 16 U/L (4-49); AST 31 U/L (17-59); African American GFR (CKD) >90 (>60 ml/min/1.73 sqM); Albumin 3.6 g/dL (3.5-5.0); Albumin/Globulin Ratio 1.4; Alkaline Phosphatase 119 U/L (38-126); Anion Gap 5 mmol/L; Blood Urea Nitrogen 23 mg/dL (9-20); Carbon Dioxide 31 mmol/L (22-30); Chloride 99 mmol/L (98-107); Globulin 2.5 g/dL; Glucose 231 mg/dL (74-99); Non-African American GFR(CKD) >90 (>60 ml/min/1.73 sqM); Potassium 4.5 mmol/L (3.5-5.1); Sodium 135 mmol/L (137-145); Total Bilirubin 0.4 mg/dL (0.2-1.3); Total Protein 6.1 g/dL (6.3-8.2)
[2022-08-27 10:08] LABS: Basophils % (A) 1 %; Eosinophils # (A) 0.2 k/uL (0-0.7); Eosinophils % (A) 3 %; HCT 38.2 % (39.0-53.0); HGB 12.5 gm/dL (13.0-17.5); Lymphocytes # (A) 1.5 k/uL (1.0-4.8); Lymphocytes % (A) 24 %; MCH 29.4 pg (25.0-35.0); MCHC 32.8 g/dL (31.0-37.0); MCV 89.6 fL (80.0-100.0); Mean Platelet Volume 9.1; Monocytes # (A) 0.3 k/uL (0-1.0); Monocytes % (A) 6 %; Neutrophils # (A) 3.9 k/uL (1.3-7.7); Neutrophils % (A) 65 %; Platelet Count 232 k/uL (150-450); RBC 4.26 m/uL (4.30-5.90); RDW 13.4 % (11.5-15.5); WBC 6.1 k/uL (3.8-10.6)
[2022-08-27] MEDS: TAMSULOSIN 0.4 MG CAP.ER.24H PO SCH (10:16)
[2022-08-27] MEDS: ASPIRIN 325 MG TAB PO SCH (10:17)
[2022-08-27] MEDS: CARBIDOPA-LEVODOPA 25-100 MG 1 EACH TAB PO SCH ×2 (10:17→14:14)
[2022-08-27] MEDS: QUEtiapine 25 MG TAB PO SCH (10:17)
[2022-08-27] MEDS: lamoTRIgine 100 MG TAB PO SCH (10:17)
[2022-08-27] MEDS: lisinopriL 5 MG TAB PO SCH (10:17)
[2022-08-27] MEDS: MEMANTINE 5 MG TAB PO SCH (10:17)
[2022-08-27] MEDS: ENOXAPARIN 40 MG/0.4 ML SYRINGE SQ SCH (10:17)
[2022-08-27] MEDS: MULTIVITAMINS, THERA 1 EACH TAB PO SCH (10:17)
[2022-08-27 11:51] LABS: Glucose,Whole Blood 345 mg/dL (70-110)
--- NOTE | 2022-08-27 13:35 | P.PN ---
Progress Note - Text Progress Note Date: 08/27/22 Interval History: Patient was seen eating his lunch with his at bedside. Currently, the patient is not reporting any suicidal or homicidal ideation, intention, and/or plan. He is alert and oriented to person and place. He is comfortably eating his lunch and is much more spontaneous today. The patient is currently denying any auditory or visual hallucinations. He reports no paranoia or other delusions. The patient has been adherent with his medication and is not reporting any somatic and side effects. He denies any chest pain, palpitations, or any other medical issues or concerns. He reports no acute dystonias. As per discussion with the patient's nurse, he has been cooperative and pleasant. He has not required any when necessary Haldol medication. His continues to express concern about him returning home as she does not feel like she has the ability to take care of him on her own. Mental Status Exam: General Appearance: Patient appears to be stated age, slender elderly male laying in bed, comfortably eating his lunch Behavior: Patient is calmly eating his lunch. Psychomotor slowing is evident. Speech: Patient's speech is normal in volume and tone. Mood/Affect: Mood is fine, affect is blunted. Suicidality/Homicidality: Patient denies having any suicidal or homicidal ideation intent or plan. Perceptions: Patient denies any visual hallucinations and denies any auditory hallucinations Though content/process: No delusional thought content endorsed. Thoughts linear and goal-directed. Memory and concentration: He is alert and oriented to person and place. Judgment and insight: Improving mildly Vital Signs Temp 98.4 F 08/27/22 08:20 Pulse 89 08/27/22 08:20 Resp 17 08/27/22 08:20 BP 115/70 08/27/22 08:20 Pulse Ox 93 L 08/27/22 08:20 FiO2 Intake & Output 08/26/22 08/27/22 08/27/22 18:59 06:59 18:59 Output Total 625 Balance -625 Output: Urine 625 Other: Voiding Method Diaper Diaper # Voids 1 2 # Bowel Movements 1 Laboratory Results - Last 24 Hours 08/26/22 08/26/22 08/27/22 16:18 19:27 06:18 WBC RBC Hgb Hct MCV MCH MCHC RDW Plt Count MPV Neutrophils % Lymphocytes % Monocytes % Eosinophils % Basophils % Neutrophils # Lymphocytes # Monocytes # Eosinophils # Basophils # Sodium Potassium Chloride Carbon Dioxide Anion Gap BUN Creatinine Est GFR (CKD-EPI)AfAm Est GFR (CKD-EPI)NonAf Glucose POC Glucose (mg/dL) 255 H 267 H 288 H POC Glu Music Industry Intern ID Bessy Oviedo Rayna Johnson, Rayna Calcium Total Bilirubin AST ALT Alkaline Phosphatase Total Protein Albumin Globulin Albumin/Globulin Ratio 08/27/22 08/27/22 08/27/22 09:08 09:08 11:49 WBC 6.1 RBC 4.26 L Hgb 12.5 L Hct 38.2 L MCV 89.6 MCH 29.4 MCHC 32.8 RDW 13.4 Plt Count 232 MPV 9.1 Neutrophils % 65 Lymphocytes % 24 Monocytes % 6 Eosinophils % 3 Basophils % 1 Neutrophils # 3.9 Lymphocytes # 1.5 Monocytes # 0.3 Eosinophils # 0.2 Basophils # 0.0 Sodium 135 L Potassium 4.5 Chloride 99 Carbon Dioxide 31 H Anion Gap 5 BUN 23 H Creatinine 0.78 Est GFR (CKD-EPI)AfAm >90 Est GFR (CKD-EPI)NonAf >90 Glucose 231 H POC Glucose (mg/dL) 345 H POC Glu Music Industry Intern ID Alex shiica Calcium 9.0 Total Bilirubin 0.4 AST 31 ALT 16 Alkaline Phosphatase 119 Total Protein 6.1 L Albumin 3.6 Globulin 2.5 Albumin/Globulin Ratio 1.4 Assessment Major neurocognitive disorder with behavioral disturbances Rule out Parkinson's disease/Lewy body dementia Seizure disorder Hyperglycemia Vitamin B-12 deficiency Diabetes mellitus Plan: -Continue your medical management -At this time patient DOES NOT meet criteria for inpatient psychiatric admission. Patient has not displayed any acute behaviors for more than 72 hours. No sundowning behaviors reported. -Patient DOES NOT have decision making capacity at this time and is unable to reason through and communicate/appreciate the risks, benefits and alternatives to treatment. -Delirium precautions recommended with patient including - avoiding use of narcotics and FIXING CARPENTER sedatives, limit anticholinergic medications when possible, frequent re-orientation, minimize use of restraints, open window shades during the day and close them at night -Would recommend the following medication changes/additions: Continue Haldol 3 mg IM q4H PRN for agitation Continue Remeron 7.5 mg at bedtime for appetite stimulation and insomnia Continue Seroquel 25 mg po HS for dementia with behavior disturbances. -Patient is cleared psychiatrically for discharge as he has not displayed any acute behaviors. We will continue to follow while he is admitted to the hospital.
[2022-08-27] MEDS: CALCIUM CARBONATE 500 MG CHEWABLE PO SCH (14:14)
[2022-08-27 16:11] VITALS: BP 95/62; PULSE 104; TEMP 98.5
== END 2022-08-27 16:40 | disposition home health service (06) | DRG 57 ==
LOC: EC 19:06 → 4SSUR 20:07 → OBSVTOIN 08-22 16:55
PROVIDERS: ADMIT Internal Medicine; ATTEND Internal Medicine
DX: G20 Parkinson's disease (principal); F06.71 Mild neurocognitive disorder due to known physiological condition with behavioral disturbance; E11.649 Type 2 diabetes mellitus with hypoglycemia without coma; E86.0 Dehydration; E11.65 Type 2 diabetes mellitus with hyperglycemia; E53.8 Deficiency of other specified B group vitamins; D64.9 Anemia, unspecified; G40.909 Epilepsy, unspecified, not intractable, without status epilepticus; Z79.4 Long term (current) use of insulin; I10 Essential (primary) hypertension; I35.8 Other nonrheumatic aortic valve disorders; N40.1 Benign prostatic hyperplasia with lower urinary tract symptoms; R33.8 Other retention of urine; N39.498 Other specified urinary incontinence; R29.6 Repeated falls; R21 Rash and other nonspecific skin eruption; I83.90 Asymptomatic varicose veins of unspecified lower extremity; G47.00 Insomnia, unspecified; Z79.82 Long term (current) use of aspirin; Z79.899 Other long term (current) drug therapy; Z87.891 Personal history of nicotine dependence; Z87.440 Personal history of urinary (tract) infections; Z86.73 Personal history of transient ischemic attack (TIA), and cerebral infarction without residual deficits; Z88.0 Allergy status to penicillin
CPT/HCPCS: 36415; 71046; 80053; 80175; 82607; 83036; 83921; 84425; 84484; 85025; 85610; 85730; 86780; 95816; 99285

== ENCOUNTER 2023-08-30 12:46 | Inpatient (IN) | payer MEDICARE ==
--- NOTE | 2023-08-30 13:10 | ED ---
General Adult HPI - General Chief complaint: Psychiatric Symptoms Stated complaint: Frustration Time Seen by Provider: 08/30/23 12:55 Source: patient, family, RN notes reviewed Mode of arrival: EMS Limitations: no limitations - History of Present Illness Initial comments: Patient is a pleasant 72-year-old male with history of Parkinson's disease. Patient presents with complaints of frustration. Patient has a difficult time stating his complaints. Patient states he frequently sleeps most of the day. Patient states this is chronic, unclear when it started. states he has been more agitated lately and did throw something the other day. No physical abuse. Patient states appetite has been good. adds that patient one day refused to eat and several days has refused his medications. Patient denies depression. Patient denies suicidal thoughts. - Related Data Home Medications Medication Instructions Recorded Confirmed Insulin Glargine [Lantus Vial] 22 units SQ HS 03/28/14 08/30/23 Multivitamin [Men's Multi-Vitamin] 1 tab PO DAILY 03/28/14 08/30/23 lamoTRIgine 200 mg PO BID@0800,1700 03/28/14 08/30/23 Aspirin EC [Ecotrin] 325 mg PO DAILY 04/09/16 08/30/23 Calcium Carbonate [Calcium] 600 mg PO DAILY@1200 02/20/21 08/30/23 Carbidopa-Levodopa 25-100 mg 1 tab PO TID@0800,1200,1700 08/09/22 08/30/23 [Sinemet 25-100 mg] INSULIN ASPART (NovoLOG) [NovoLOG See Protocol SQ AC-TID 08/30/23 08/30/23 (formulary)] Mirtazapine 7.5 mg PO HS 08/30/23 08/30/23 Pravastatin Sodium [Pravachol] 40 mg PO HS 08/30/23 08/30/23 Timolol 0.5% Ophth Soln [Timoptic 1 drop BOTH EYES DAILY 08/30/23 08/30/23 0.5% Ophth Soln] Previous Rx's Medication Instructions Recorded Tamsulosin [Flomax] 0.4 mg PO BID cap 08/19/22 Donepezil [Aricept] 5 mg PO HS tab 08/27/22 Memantine [Namenda] 5 mg PO BID tab 08/27/22 QUEtiapine [SEROquel] 25 mg PO BID tab 08/27/22 Allergies Allergy/AdvReac Type Severity Reaction Status Date / Time Penicillins Allergy Rash/Hives Verified 08/30/23 14:51 Review of Systems ROS Statement: Those systems with pertinent positive or pertinent negative responses have been documented in the HPI. ROS Other: All systems not noted in ROS Statement are negative. Constitutional: Denies: fever Eyes: Denies: eye pain ENT: Denies: ear pain Respiratory: Denies: cough, dyspnea Cardiovascular: Denies: chest pain Endocrine: Reports: as per HPI, fatigue Gastrointestinal: Denies: abdominal pain Genitourinary: Denies: dysuria Past Medical History Past Medical History: Diabetes Mellitus, Eye Disorder, Hypertension, Seizure Disorder Additional Past Medical History / Comment(s): encephalopathy; RASH LEFT ANKLE,VARICOSE VEINS,EYE FLOATERS,TREMORS,SEIZURES WITH LOW BLOOD SUGAR-LAST SEIZURE APPROX JUN 2015 parkinson History of Any Multi-Drug Resistant Organisms: VRE Date of last positivie culture/infection: 02/26/23 MDRO Source:: Urine Past Surgical History: Orthopedic Surgery Additional Past Surgical History / Comment(s): cataracts bilateral. total left knee. left index finger thea placement Past Anesthesia/Blood Transfusion Reactions: No Reported Reaction Past Psychological History: No Psychological Hx Reported Smoking Status: Never smoker Past Alcohol Use History: None Reported Past Drug Use History: None Reported - Past Family History Brother(s) Family Medical History: Diabetes Mellitus Sister(s) Family Medical History: Diabetes Mellitus Additional Family Medical History / Comment(s): MS Father Family Medical History: Cancer, Diabetes Mellitus Additional Family Medical History / Comment(s): COL[place] General Exam Limitations: no limitations General appearance: alert, in no apparent distress Head exam: Present: normocephalic Eye exam: Present: normal appearance ENT exam: Present: normal oropharynx Neck exam: Present: normal inspection Respiratory exam: Present: normal lung sounds bilaterally Cardiovascular Exam: Present: bradycardia Expanded Peripheral pulses: 2+: Radial (R), Radial (L) GI/Abdominal exam: Present: soft. Absent: tenderness Extremities exam: Present: normal inspection, full ROM. Absent: tenderness Neurological exam: Present: alert, oriented X3, CN II-XII intact. Absent: motor sensory deficit Expanded Neurological exam: Present: protecting the airway Patient oriented to: Present: person, place, time Motor strength exam: RUE: 5, LUE: 5, RLE: 5, LLE: 5 Eye Response: (4) open spontaneously Motor Response: (6) obeys commands Verbal Response: (5) oriented Psychiatric exam: Present: normal affect, normal mood Skin exam: Present: normal color Course Vital Signs 08/30/23 08/30/23 08/30/23 12:47 13:20 13:28 Temperature 98 F Pulse Rate 40 L 68 48 L Respiratory 16 13 18 Rate Blood Pressure 185/73 138/102 O2 Sat by Pulse 100 99 99 Oximetry 08/30/23 08/30/23 08/30/23 13:30 13:50 14:00 Temperature Pulse Rate 71 72 63 Respiratory 16 13 14 Rate Blood Pressure 112/75 149/65 149/65 O2 Sat by Pulse 99 Oximetry 08/30/23 08/30/23 08/30/23 14:10 14:20 14:30 Temperature Pulse Rate 70 67 68 Respiratory 18 15 14 Rate Blood Pressure 138/95 133/67 133/67 O2 Sat by Pulse Oximetry 08/30/23 08/30/23 14:40 16:33 Temperature Pulse Rate 64 65 Respiratory 17 20 Rate Blood Pressure 134/58 157/90 O2 Sat by Pulse 98 Oximetry EKG Findings - EKG Results: EKG: interpreted by ERMD (Frequent PVCs and bigeminy pattern. Septal Q waves.), sinus rhythm, normal ST/T Medical Decision Making - Medical Decision Making Patient is not perfusing PVCs. Pulse rate is 38 off radial pulse. Was pt. sent in by a medical professional or institution (, PA, [employer], urgent care, hospital, or halfway...) When possible be specific @ - Did you speak to anyone other than the patient for history (EMS, parent, family, police, friend...)? What history was obtained from this source @ - is present and helps provide history as patient is reluctant. Did you review nursing and triage notes (agree or disagree)? Why? @ -I reviewed and agree with nursing and triage notes Were old charts reviewed (outside hosp., previous admission, EMS record, old EKG, old radiological studies, urgent care reports/EKG's, halfway records)? Report findings @ -No old charts were reviewed Differential Diagnosis (chest pain, altered mental status, abdominal pain women, abdominal pain men, vaginal bleeding, weakness, fever, dyspnea, syncope, headac he, dizziness, GI bleed, back pain, seizure, CVA, palpatations, mental health, musculoskeletal)? @ -Differential Weakness: Hypoglycemia, shock, sepsis, hyponatremia, anemia, infection, SC, ETOH, adverse medicine reaction, overdose, stroke, this is not meant to be an all-inclusive list. EKG interpreted by me (3pts min.). @ -As above X-rays interpreted by me (1pt min.). @ -2 view chest x-ray shows tiny right effusion. CT interpreted by me (1pt min.). @ -None done U/S interpreted by me (1pt. min.). @ -None done What testing was considered but not performed or refused? (CT, X-rays, U/S, labs)? Why? @ -None What meds were considered but not given or refused? Why? @ -None Did you discuss the management of the patient with other professionals (professionals i.e. , PA, [employer], lab, RT, psych nurse, social media campaign manager, ammonia refrigeration worker, teacher, correction officer supervisor, case resource manager)? Give summary @ -Case was discussed with Dr. Simons, who will admit covered Dr. Aquino Was smoking cessation discussed for >3mins.? @ -No Was critical care preformed (if so, how long)? @ -No Were there social determinants of health that impacted care today? How? (Homelessness, low income, unemployed, alcoholism, drug addiction, transportation, low edu. Level, literacy, decrease access to med. care, assisted, rehab)? @ -No Was there de-escalation of care discussed even if they declined (Discuss DNR or withdrawal of care, Hospice)? DNR status @ -No What co-morbidities impacted this encounter? (DM, HTN, Smoking, COPD, CAD, Cancer, CVA, ARF, Chemo, Hep., AIDS, mental health diagnosis, sleep apnea, morbid obesity)? @ -None Was patient admitted / discharged? Hospital course, mention meds given and route, prescriptions, significant lab abnormalities, going to OR and other pertinent info. @ -Patient evaluated. Patient is updated on results and plan. Patient will be admitted with antibiotics. Patient will also need cardiac consult. Admission orders written. Consult placed. Undiagnosed new problem with uncertain prognosis? @ -No Drug Therapy requiring intensive monitoring for toxicity (Heparin, Nitro, Insulin, Cardizem)? @ -No Were any procedures done? @ -No Diagnosis/symptom? @ -Urinary tract infection, bradycardia Acute, or Chronic, or Acute on Chronic? @ -Acute, acute Uncomplicated (without systemic symptoms) or Complicated (systemic symptoms)? @ -default Side effects of treatment? @ -No Exacerbation, Progression, or Severe Exacerbation? @ -No Poses a threat to life or bodily function? How? (Chest pain, USA, SC, pneumonia, PE, COPD, DKA, ARF, appy, cholecystitis, CVA, Diverticulitis, Homicidal, Suicidal, threat to staff... and all critical care pts) @ -No - Lab Data Result diagrams: 08/30/23 13:33 08/30/23 13:33 Lab Results 08/30/23 08/30/23 08/30/23 Range/Units 13:33 13:33 13:33 WBC 4.8 (3.8-10.6) k/uL RBC 4.37 (4.30-5.90) m/uL Hgb 13.4 (13.0-17.5) gm/dL Hct 40.3 (39.0-53.0) % MCV 92.1 (80.0-100.0) fL MCH 30.6 (25.0-35.0) pg MCHC 33.2 (31.0-37.0) g/dL RDW 12.9 (11.5-15.5) % Plt Count 176 (150-450) k/uL MPV 9.6 Neutrophils % 54 % Lymphocytes % 33 % Monocytes % 6 % Eosinophils % 4 % Basophils % 1 % Neutrophils # 2.6 (1.3-7.7) k/uL Lymphocytes # 1.6 (1.0-4.8) k/uL Monocytes # 0.3 (0-1.0) k/uL Eosinophils # 0.2 (0-0.7) k/uL Basophils # 0.0 (0-0.2) k/uL PT 10.3 (10.0-12.5) sec INR 0.9 (<1.2) APTT 23.8 (22.0-30.0) sec Sodium (137-145) mmol/L Potassium (3.5-5.1) mmol/L Chloride (98-107) mmol/L Carbon Dioxide (22-30) mmol/L Anion Gap mmol/L BUN (9-20) mg/dL Creatinine (0.66-1.25) mg/dL Est GFR (CKD-EPI)AfAm (>60 ml/min/1.73 sqM) Est GFR (CKD-EPI)NonAf (>60 ml/min/1.73 sqM) Glucose (74-99) mg/dL POC Glucose (mg/dL) (70-110) mg/dL POC Glu Confidential Investigator ID Plasma Lactic Acid Ramin (0.7-2.0) mmol/L Calcium (8.4-10.2) mg/dL Magnesium (1.6-2.3) mg/dL Total Bilirubin (0.2-1.3) mg/dL AST (17-59) U/L ALT (4-49) U/L Alkaline Phosphatase (38-126) U/L Troponin I (0.000-0.034) ng/mL Total Protein (6.3-8.2) g/dL Albumin (3.5-5.0) g/dL TSH (0.465-4.680) mIU/L Free T4 (0.78-2.19) ng/dL Free T3 pg/mL (2.8-5.3) pg/ml Urine Color Urine Appearance (Clear) Urine pH (5.0-8.0) Ur Specific [place] (1.001-1.035) Urine Protein (Negative) Urine Glucose (UA) (Negative) Urine Ketones (Negative) Urine Blood (Negative) Urine Nitrite (Negative) Urine Bilirubin (Negative) Urine Urobilinogen (<2.0) mg/dL Ur Leukocyte Esterase (Negative) Urine RBC (0-5) /hpf Urine WBC (0-5) /hpf Urine Bacteria (None) /hpf Urine Yeast (Budding) (None) /hpf Urine Opiates Screen Not Detected (NotDetected) Ur Oxycodone Screen Not Detected (NotDetected) Urine Methadone Screen Not Detected (NotDetected) Ur Propoxyphene Screen Not Detected (NotDetected) Ur Barbiturates Screen Not Detected (NotDetected) U Tricyclic Antidepress Detected H (NotDetected) Ur Phencyclidine Scrn Not Detected (NotDetected) Ur Amphetamines Screen Not Detected (NotDetected) U Methamphetamines Scrn Not Detected (NotDetected) U Benzodiazepines Scrn Not Detected (NotDetected) Urine Cocaine Screen Not Detected (NotDetected) U Marijuana (THC) Screen Not Detected (NotDetected) Serum Alcohol mg/dL 08/30/23 08/30/23 08/30/23 Range/Units 13:33 13:33 13:33 WBC (3.8-10.6) k/uL RBC (4.30-5.90) m/uL Hgb (13.0-17.5) gm/dL Hct (39.0-53.0) % MCV (80.0-100.0) fL MCH (25.0-35.0) pg MCHC (31.0-37.0) g/dL RDW (11.5-15.5) % Plt Count (150-450) k/uL MPV Neutrophils % % Lymphocytes % % Monocytes % % Eosinophils % % Basophils % % Neutrophils # (1.3-7.7) k/uL Lymphocytes # (1.0-4.8) k/uL Monocytes # (0-1.0) k/uL Eosinophils # (0-0.7) k/uL Basophils # (0-0.2) k/uL PT (10.0-12.5) sec INR (<1.2) APTT (22.0-30.0) sec Sodium 142 (137-145) mmol/L Potassium 4.5 (3.5-5.1) mmol/L Chloride 104 (98-107) mmol/L Carbon Dioxide 27 (22-30) mmol/L Anion Gap 11 mmol/L BUN 31 H (9-20) mg/dL Creatinine 0.94 (0.66-1.25) mg/dL Est GFR (CKD-EPI)AfAm >90 (>60 ml/min/1.73 sqM) Est GFR (CKD-EPI)NonAf 82 (>60 ml/min/1.73 sqM) Glucose 151 H (74-99) mg/dL POC Glucose (mg/dL) (70-110) mg/dL POC Glu Confidential Investigator ID Plasma Lactic Acid Ramin 0.9 (0.7-2.0) mmol/L Calcium 9.3 (8.4-10.2) mg/dL Magnesium 2.3 (1.6-2.3) mg/dL Total Bilirubin 0.5 (0.2-1.3) mg/dL AST 25 (17-59) U/L ALT 22 (4-49) U/L Alkaline Phosphatase 80 (38-126) U/L Troponin I <0.012 (0.000-0.034) ng/mL Total Protein 7.1 (6.3-8.2) g/dL Albumin 4.3 (3.5-5.0) g/dL TSH 1.620 (0.465-4.680) mIU/L Free T4 0.98 (0.78-2.19) ng/dL Free T3 pg/mL 3.6 (2.8-5.3) pg/ml Urine Color Urine Appearance (Clear) Urine pH (5.0-8.0) Ur Specific [place] (1.001-1.035) Urine Protein (Negative) Urine Glucose (UA) (Negative) Urine Ketones (Negative) Urine Blood (Negative) Urine Nitrite (Negative) Urine Bilirubin (Negative) Urine Urobilinogen (<2.0) mg/dL Ur Leukocyte Esterase (Negative) Urine RBC (0-5) /hpf Urine WBC (0-5) /hpf Urine Bacteria (None) /hpf Urine Yeast (Budding) (None) /hpf Urine Opiates Screen (NotDetected) Ur Oxycodone Screen (NotDetected) Urine Methadone Screen (NotDetected) Ur Propoxyphene Screen (NotDetected) Ur Barbiturates Screen (NotDetected) U Tricyclic Antidepress (NotDetected) Ur Phencyclidine Scrn (NotDetected) Ur Amphetamines Screen (NotDetected) U Methamphetamines Scrn (NotDetected) U Benzodiazepines Scrn (NotDetected) Urine Cocaine Screen (NotDetected) U Marijuana (THC) Screen (NotDetected) Serum Alcohol <10 mg/dL 08/30/23 08/30/23 Range/Units 13:33 15:32 WBC (3.8-10.6) k/uL RBC (4.30-5.90) m/uL Hgb (13.0-17.5) gm/dL Hct (39.0-53.0) % MCV (80.0-100.0) fL MCH (25.0-35.0) pg MCHC (31.0-37.0) g/dL RDW (11.5-15.5) % Plt Count (150-450) k/uL MPV Neutrophils % % Lymphocytes % % Monocytes % % Eosinophils % % Basophils % % Neutrophils # (1.3-7.7) k/uL Lymphocytes # (1.0-4.8) k/uL Monocytes # (0-1.0) k/uL Eosinophils # (0-0.7) k/uL Basophils # (0-0.2) k/uL PT (10.0-12.5) sec INR (<1.2) APTT (22.0-30.0) sec Sodium (137-145) mmol/L Potassium (3.5-5.1) mmol/L Chloride (98-107) mmol/L Carbon Dioxide (22-30) mmol/L Anion Gap mmol/L BUN (9-20) mg/dL Creatinine (0.66-1.25) mg/dL Est GFR (CKD-EPI)AfAm (>60 ml/min/1.73 sqM) Est GFR (CKD-EPI)NonAf (>60 ml/min/1.73 sqM) Glucose (74-99) mg/dL POC Glucose (mg/dL) 181 H (70-110) mg/dL POC Glu Confidential Investigator ID Brown Roberta Plasma Lactic Acid Ramin (0.7-2.0) mmol/L Calcium (8.4-10.2) mg/dL Magnesium (1.6-2.3) mg/dL Total Bilirubin (0.2-1.3) mg/dL AST (17-59) U/L ALT (4-49) U/L Alkaline Phosphatase (38-126) U/L Troponin I (0.000-0.034) ng/mL Total Protein (6.3-8.2) g/dL Albumin (3.5-5.0) g/dL TSH (0.465-4.680) mIU/L Free T4 (0.78-2.19) ng/dL Free T3 pg/mL (2.8-5.3) pg/ml Urine Color Yellow Urine Appearance Slightly Cloudy (Clear) Urine pH 6.5 (5.0-8.0) Ur Specific [place] 1.020 (1.001-1.035) Urine Protein 1+ H (Negative) Urine Glucose (UA) Negative (Negative) Urine Ketones Negative (Negative) Urine Blood Large H (Negative) Urine Nitrite Negative (Negative) Urine Bilirubin Negative (Negative) Urine Urobilinogen 0.2 (<2.0) mg/dL Ur Leukocyte Esterase Moderate H (Negative) Urine RBC 105 H (0-5) /hpf Urine WBC >182 H (0-5) /hpf Urine Bacteria Rare H (None) /hpf Urine Yeast (Budding) Rare H (None) /hpf Urine Opiates Screen (NotDetected) Ur Oxycodone Screen (NotDetected) Urine Methadone Screen (NotDetected) Ur Propoxyphene Screen (NotDetected) Ur Barbiturates Screen (NotDetected) U Tricyclic Antidepress (NotDetected) Ur Phencyclidine Scrn (NotDetected) Ur Amphetamines Screen (NotDetected) U Methamphetamines Scrn (NotDetected) U Benzodiazepines Scrn (NotDetected) Urine Cocaine Screen (NotDetected) U Marijuana (THC) Screen (NotDetected) Serum Alcohol mg/dL Disposition Clinical Impression: UTI (urinary tract infection), Bradycardia Disposition: ADMITTED IP TO THIS HOSP Is patient prescribed a controlled substance at d/c from ED?: No Referrals: John Aquino MD [Primary Care Provider] - 1-2 days Time of Disposition: 16:37
[2023-08-30 13:59] LABS: Basophils % (A) 1 %; Eosinophils # (A) 0.2 k/uL (0-0.7); Eosinophils % (A) 4 %; HCT 40.3 % (39.0-53.0); HGB 13.4 gm/dL (13.0-17.5); Lymphocytes # (A) 1.6 k/uL (1.0-4.8); Lymphocytes % (A) 33 %; MCH 30.6 pg (25.0-35.0); MCHC 33.2 g/dL (31.0-37.0); MCV 92.1 fL (80.0-100.0); Mean Platelet Volume 9.6; Monocytes # (A) 0.3 k/uL (0-1.0); Monocytes % (A) 6 %; Neutrophils # (A) 2.6 k/uL (1.3-7.7); Neutrophils % (A) 54 %; Platelet Count 176 k/uL (150-450); RBC 4.37 m/uL (4.30-5.90); RDW 12.9 % (11.5-15.5); WBC 4.8 k/uL (3.8-10.6)
[2023-08-30 14:08] LABS: Bacteria,Urine Rare /hpf; Budding Yeast,Urine Rare /hpf; RBC,Urine 105 /hpf (0-5); WBC,Urine >182 /hpf (0-5)
[2023-08-30 14:12] LABS: Appearance,Urine Slightly Cloudy (Clear); Bilirubin,Urine Negative (Negative); Blood,Urine Large (Negative); Color,Urine Yellow; Glucose,Urine (UA) Negative (Negative); INR 0.9 (<1.2); Ketones,Urine Negative (Negative); Leukocyte Esterase,Urine Moderate (Negative); Nitrite,Urine Negative (Negative); PH, Urine 6.5 (5.0-8.0); Partial Thromboplastin Time 23.8 sec (22.0-30.0); Protein,Urine 1+ (Negative); Prothrombin Time 10.3 sec (10.0-12.5); Urobilinogen,Urine 0.2 mg/dL (<2.0)
[2023-08-30 14:13] LABS: Amphetamine Screen,Urine Not Detected (NotDetected); Barbiturate Screen,Urine Not Detected (NotDetected); Benzodiazepines Screen,Urine Not Detected (NotDetected); Cocaine Screen,Urine Not Detected (NotDetected); Methadone Screen, Urine Not Detected (NotDetected); Opiate Screen,Urine Not Detected (NotDetected); Oxycodone Screen, Urine Not Detected (NotDetected); Phencyclidine Screen,Urine Not Detected (NotDetected); Tricyclic Antidepressant,Urine Detected (NotDetected); Urn Cannabinoid Scrn Not Detected (NotDetected)
[2023-08-30 14:54] LABS: T4, Free (Free Thyroxine) 0.98 ng/dL (0.78-2.19)
--- NOTE | 2023-08-30 15:00 | XR ---
EXAMINATION TYPE: XR chest 2V DATE OF EXAM: 08/30/2023 COMPARISON: 08/19/2022 HISTORY: Weakness TECHNIQUE: Frontal and lateral views of the chest are obtained. FINDINGS: There has been interval development of a tiny right pleural effusion blunting the right costophrenic angle. There is no pneumothorax. Heart and pulmonary vasculature are normal. The lungs are clear and there is no airspace/consolidative density or abnormal interstitial density. There are marked degenerative changes of the shoulders. The osseous structures are otherwise intact. IMPRESSION: Interval development of a tiny right pleural effusion with no other significant abnormality seen.
[2023-08-30 15:05] LABS: ALT 22 U/L (4-49); AST 25 U/L (17-59); African American GFR (CKD) >90 (>60 ml/min/1.73 sqM); Albumin 4.3 g/dL (3.5-5.0); Alcohol <10 mg/dL; Alkaline Phosphatase 80 U/L (38-126); Anion Gap 11 mmol/L; Blood Urea Nitrogen 31 mg/dL (9-20); Calcium 9.3 mg/dL (8.4-10.2); Carbon Dioxide 27 mmol/L (22-30); Chloride 104 mmol/L (98-107); Glucose 151 mg/dL (74-99); Magnesium 2.3 mg/dL (1.6-2.3); Non-African American GFR(CKD) 82 (>60 ml/min/1.73 sqM); Potassium 4.5 mmol/L (3.5-5.1); Sodium 142 mmol/L (137-145); Total Bilirubin 0.5 mg/dL (0.2-1.3); Total Protein 7.1 g/dL (6.3-8.2)
[2023-08-30 15:33] LABS: Glucose,Whole Blood 181 mg/dL (70-110)
[2023-08-30] MEDS ORDERED: NALOXONE 0.4 MG/ML 1 ML VIAL IV PRN (16:37)
[2023-08-30] MEDS ORDERED: ACETAMINOPHEN TAB 325 MG TAB PO PRN (16:37)
[2023-08-30] MEDS: SODIUM CHLORIDE 0.9% 1,000 ML IV SCH (16:55)
[2023-08-30 19:00] LABS: Glucose,Whole Blood 244 mg/dL (70-110)
[2023-08-30] MEDS ORDERED: INSULIN REGULAR 100 UNIT/ML VIAL (IM/SQ) SQ ONE (19:25)
[2023-08-30] MEDS ORDERED: DEXTROSE 50% SYRINGE 50 ML IVP PRN (21:00)
[2023-08-30] MEDS ORDERED: MIRTAZAPINE 15 MG TAB PO SCH (21:00)
[2023-08-30 21:09] LABS: Glucose,Whole Blood 233 mg/dL (70-110)
[2023-08-30] MEDS: INSULIN DETEMIR (LEVEMIR) 100 UNIT/ML SYR SQ SCH (21:47)
[2023-08-30] MEDS: DONEPEZIL 5 MG TAB PO SCH (21:48)
[2023-08-30] MEDS: PRAVASTATIN SODIUM 40 MG TAB PO SCH (21:48)
[2023-08-30] MEDS: INSULIN ASPART (NovoLOG) 100 UNIT/ML VIAL SQ SCH (21:48)
[2023-08-30] MEDS: TAMSULOSIN 0.4 MG CAP.ER.24H PO SCH (21:48)
[2023-08-30] MEDS: MEMANTINE 5 MG TAB PO SCH (21:48)
[2023-08-30] MEDS: QUEtiapine 25 MG TAB PO SCH (21:49)
[2023-08-31] MEDS: INSULIN ASPART (NovoLOG) 100 UNIT/ML VIAL SQ SCH ×4 (06:07→20:35)
[2023-08-31 06:08] LABS: Glucose,Whole Blood 66 mg/dL (70-110)
[2023-08-31] MEDS: SODIUM CHLORIDE 0.9% 1,000 ML IV SCH ×2 (06:08→20:36)
[2023-08-31 06:26] LABS: Glucose,Whole Blood 66 mg/dL (70-110)
[2023-08-31 06:48] LABS: Glucose,Whole Blood 58 mg/dL (70-110)
[2023-08-31 07:05] LABS: Glucose,Whole Blood 199 mg/dL (70-110)
[2023-08-31 09:19] LABS: Basophils % (A) 1 %; Eosinophils # (A) 0.2 k/uL (0-0.7); Eosinophils % (A) 4 %; HCT 37.8 % (39.0-53.0); HGB 12.2 gm/dL (13.0-17.5); Lymphocytes # (A) 1.3 k/uL (1.0-4.8); Lymphocytes % (A) 22 %; MCH 30.2 pg (25.0-35.0); MCHC 32.3 g/dL (31.0-37.0); MCV 93.6 fL (80.0-100.0); Mean Platelet Volume 8.9; Monocytes # (A) 0.3 k/uL (0-1.0); Monocytes % (A) 6 %; Neutrophils # (A) 4.1 k/uL (1.3-7.7); Neutrophils % (A) 67 %; Platelet Count 143 k/uL (150-450); RBC 4.04 m/uL (4.30-5.90); RDW 12.8 % (11.5-15.5); WBC 6.1 k/uL (3.8-10.6)
[2023-08-31] MEDS: MEMANTINE 5 MG TAB PO SCH ×2 (09:29→20:35)
[2023-08-31] MEDS: lamoTRIgine 100 MG TAB PO SCH ×2 (09:29→17:10)
[2023-08-31] MEDS: TAMSULOSIN 0.4 MG CAP.ER.24H PO SCH ×2 (09:29→20:35)
[2023-08-31] MEDS: ASPIRIN 325 MG TAB PO SCH (09:29)
[2023-08-31] MEDS: CARBIDOPA-LEVODOPA 25-100 MG 1 EACH TAB PO SCH ×3 (09:29→17:10)
[2023-08-31] MEDS: TIMOLOL 0.5% OPHTH DROPS 5 ML BTL BOTH EYES SCH (09:30)
[2023-08-31] MEDS: MULTIVITAMINS, THERA 1 EACH TAB PO SCH (09:30)
[2023-08-31] MEDS: QUEtiapine 25 MG TAB PO SCH ×2 (09:30→20:35)
--- NOTE | 2023-08-31 09:30 | P.HPIM ---
History of Present Illness H&P Date: 08/31/23 Thang Key, patient is a 19-year-old male patient of Dr. Aquino, who presented to [facility] emergency room with a chief complaint of generalized weakness, sleeping most of the time at home, having frustration, his is stating that he has been refusing to eat or take medications. He was evaluated in the emergency room vital examination on presentation revealed a temperature of 98 pulse 40 respiration 16 blood pressure 185/73 pulse ox 100% on room air Laboratory data revealed a white blood count of 4.8 hemoglobin 13.4 platelet count 176 sodium 142 potassium 4.5 chloride 104 CO2 27 BUN 31 creatinine 0.94 troponin less than 0.012 TSH 1.6 urine analysis revealed evidence of urinary tract infection Testing in the emergency room revealed EKG revealed sinus rhythm with frequent ventricular premature complexes in a bigeminal pattern, chest x-ray revealed interval development of a tiny right pleural effusion and no other significant abnormality. Patient was admitted to medical floor for further evaluation and treatment Past medical history is significant for history of Parkinson disease, history of insulin-dependent diabetes mellitus, history of hyperlipidemia, history of osteoarthritis, history of seizures associated with hypoglycemia On review of systems patient is alert and oriented 3 in no apparent distress his speech is slow, he is complaining of frequent urination, he is complaining of generalized weakness, he denies any other complaints there is no fever or chills no headache or dizziness no chest pain no shortness of breath no cough no nausea or vomiting no abdominal pain no diarrhea no blood in the stools no burning with urination, there is frequency and urgency, there is no hematuria. Past Medical History Past Medical History: Diabetes Mellitus, Eye Disorder, Hypertension, Seizure Disorder Additional Past Medical History / Comment(s): encephalopathy; RASH LEFT ANKLE,VARICOSE VEINS,EYE FLOATERS,TREMORS,SEIZURES WITH LOW BLOOD SUGAR-LAST SEIZURE APPROX JUN 2015 parkinson History of Any Multi-Drug Resistant Organisms: VRE Date of last positivie culture/infection: 02/26/23 MDRO Source:: Urine Past Surgical History: Orthopedic Surgery Additional Past Surgical History / Comment(s): cataracts bilateral. total left knee. left index finger thea placement Past Anesthesia/Blood Transfusion Reactions: No Reported Reaction Past Psychological History: No Psychological Hx Reported Smoking Status: Former smoker Past Alcohol Use History: None Reported Additional Past Alcohol Use History / Comment(s): QUIT SMOKING 1974,STARTED 1973 Past Drug Use History: None Reported - Past Family History Brother(s) Family Medical History: Diabetes Mellitus Sister(s) Family Medical History: Diabetes Mellitus Additional Family Medical History / Comment(s): MS Father Family Medical History: Cancer, Diabetes Mellitus Additional Family Medical History / Comment(s): COLON CA Medications and Allergies Home Medications Medication Instructions Recorded Confirmed Type Insulin Glargine [Lantus Vial] 22 units SQ HS 03/28/14 08/30/23 History Multivitamin [Men's Multi-Vitamin] 1 tab PO DAILY 03/28/14 08/30/23 History lamoTRIgine 200 mg PO BID@0800,1700 03/28/14 08/30/23 History Aspirin EC [Ecotrin] 325 mg PO DAILY 04/09/16 08/30/23 History Calcium Carbonate [Calcium] 600 mg PO DAILY@1200 02/20/21 08/30/23 History Carbidopa-Levodopa 25-100 mg 1 tab PO TID@0800,1200,1700 08/09/22 08/30/23 History [Sinemet 25-100 mg] Tamsulosin [Flomax] 0.4 mg PO BID cap 08/19/22 08/30/23 Rx Donepezil [Aricept] 5 mg PO HS tab 08/27/22 08/30/23 Rx Memantine [Namenda] 5 mg PO BID tab 08/27/22 08/30/23 Rx QUEtiapine [SEROquel] 25 mg PO BID tab 08/27/22 08/30/23 Rx INSULIN ASPART (NovoLOG) [NovoLOG See Protocol SQ AC-TID 08/30/23 08/30/23 History (formulary)] Mirtazapine 7.5 mg PO HS 08/30/23 08/30/23 History Pravastatin Sodium [Pravachol] 40 mg PO HS 08/30/23 08/30/23 History Timolol 0.5% Ophth Soln [Timoptic 1 drop BOTH EYES DAILY 08/30/23 08/30/23 History 0.5% Ophth Soln] Allergies Allergy/AdvReac Type Severity Reaction Status Date / Time Penicillins Allergy Rash/Hives Verified 08/30/23 14:51 Physical Exam Vitals: Vital Signs Temp Pulse Pulse Resp BP BP Pulse Ox 08/31/23 04:00 67 16 125/69 100 08/31/23 00:00 77 16 111/61 96 08/30/23 21:17 98.2 F 73 16 163/75 95 08/30/23 20:06 97.9 F 72 18 83/69 96 08/30/23 17:02 57 L 18 117/82 08/30/23 16:33 65 20 157/90 98 08/30/23 14:40 64 17 134/58 08/30/23 14:30 68 14 133/67 08/30/23 14:20 67 15 133/67 08/30/23 14:10 70 18 138/95 08/30/23 14:00 63 14 149/65 08/30/23 13:50 72 13 149/65 08/30/23 13:30 71 16 112/75 99 08/30/23 13:28 48 L 18 99 08/30/23 13:20 68 13 138/102 99 08/30/23 12:47 98 F 40 L 16 185/73 100 Intake and Output 08/30/23 08/31/23 08/31/23 22:59 06:59 14:59 Intake Total 540 540 Balance 540 540 Intake: Oral 540 540 Other: Voiding Method Toilet Toilet # Voids 2 Weight 72.575 kg In general patient is alert and oriented x 3 in no distress HEENT head normocephalic and atraumatic Neck is supple no JVD no goiter no lymphadenopathy no carotid bruit Chest examination is clear to auscultation no crackles no wheezing Cardiac exam reveals irregular heart sounds S1 and S2 no gallops no murmurs Abdomen is soft nontender no organomegaly with normal bowel sounds Extremity exam reveals no edema no cyanosis or clubbing Neurological examination reveals no gross focal deficits Results CBC & Chem 7: 08/31/23 08:28 08/30/23 13:33 Labs: Abnormal Lab Results - Last 24 Hours (Table) 08/30/23 08/30/23 08/30/23 Range/Units 13:33 13:33 13:33 BUN 31 H (9-20) mg/dL Glucose 151 H (74-99) mg/dL POC Glucose (mg/dL) (70-110) mg/dL Urine Protein 1+ H (Negative) Urine Blood Large H (Negative) Ur Leukocyte Esterase Moderate H (Negative) Urine RBC 105 H (0-5) /hpf Urine WBC >182 H (0-5) /hpf Urine Bacteria Rare H (None) /hpf Urine Yeast (Budding) Rare H (None) /hpf U Tricyclic Antidepress Detected H (NotDetected) 08/30/23 08/30/23 08/30/23 Range/Units 15:32 18:58 21:06 BUN (9-20) mg/dL Glucose (74-99) mg/dL POC Glucose (mg/dL) 181 H 244 H 233 H (70-110) mg/dL Urine Protein (Negative) Urine Blood (Negative) Ur Leukocyte Esterase (Negative) Urine RBC (0-5) /hpf Urine WBC (0-5) /hpf Urine Bacteria (None) /hpf Urine Yeast (Budding) (None) /hpf U Tricyclic Antidepress (NotDetected) 08/31/23 08/31/23 08/31/23 Range/Units 06:06 06:25 06:47 BUN (9-20) mg/dL Glucose (74-99) mg/dL POC Glucose (mg/dL) 66 L 66 L 58 L (70-110) mg/dL Urine Protein (Negative) Urine Blood (Negative) Ur Leukocyte Esterase (Negative) Urine RBC (0-5) /hpf Urine WBC (0-5) /hpf Urine Bacteria (None) /hpf Urine Yeast (Budding) (None) /hpf U Tricyclic Antidepress (NotDetected) 08/31/23 Range/Units 07:03 BUN (9-20) mg/dL Glucose (74-99) mg/dL POC Glucose (mg/dL) 199 H (70-110) mg/dL Urine Protein (Negative) Urine Blood (Negative) Ur Leukocyte Esterase (Negative) Urine RBC (0-5) /hpf Urine WBC (0-5) /hpf Urine Bacteria (None) /hpf Urine Yeast (Budding) (None) /hpf U Tricyclic Antidepress (NotDetected) Assessment and Plan Plan: Urinary tract infection Generalized weakness Bigeminy with bradycardia, will check echocardiogram will consult cardiology Underlying history of Parkinson disease Underlying history of dementia maintained on recent Underlying history of hyperlipidemia Underlying history of insulin-dependent diabetes mellitus Underlying history of osteoarthritis Previous history of seizures associated with hypoglycemia At this time patient is admitted to telemetry floor Home medications reviewed and reordered Patient was started on IV Rocephin in the emergency room, will continue at this time awaiting urine culture results For DVT prophylaxis subcu Lovenox Echocardiogram and cardiology consult requested Psychiatry consultation requested Will follow closely.
[2023-08-31 09:38] LABS: ALT 23 U/L (4-49); AST 22 U/L (17-59); African American GFR (CKD) >90 (>60 ml/min/1.73 sqM); Albumin 3.5 g/dL (3.5-5.0); Alkaline Phosphatase 71 U/L (38-126); Anion Gap 10 mmol/L; Blood Urea Nitrogen 21 mg/dL (9-20); Calcium 8.7 mg/dL (8.4-10.2); Carbon Dioxide 23 mmol/L (22-30); Chloride 106 mmol/L (98-107); Glucose 181 mg/dL (74-99); Non-African American GFR(CKD) >90 (>60 ml/min/1.73 sqM); Potassium 4.2 mmol/L (3.5-5.1); Sodium 139 mmol/L (137-145); Total Bilirubin 0.3 mg/dL (0.2-1.3)
--- NOTE | 2023-08-31 10:43 | P.CRDCN ---
History of Present Illness History of present illness: HISTORY OF PRESENT ILLNESS: This is a 72-year-old male with a past medical history significant for type 1 diabetes, and Parkinson's disease. 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 We have been asked to see the patient in consultation for bradycardia. Patient e xamined at the bedside. Patient states he was diagnosed with a fast progressing Parkinsons Disease last year. He states he presented to the hospital with a chief complaint of trouble getting his words out. According to the year documentation he was feeling weak and not eating at home. The patient denies having any complaints of chest pain or pressure. He denies any shortness of breath. He states he has had a few episodes of lightheadedness at home where he felt like he was going to fall. However he denies having any falls or episodes of syncope. The patient states his blood pressure typically runs on the lower side. This morning the patient did have a blood pressure of 187/88. However according to the nurse the patient was very worked up at the time his blood pressure was taken. Repeat blood pressure obtained an hour later 120/54. * EKG reveals sinus mechanism with PVCs * Chest xray interval development of tiny right pleural effusion with no other significant abnormalities seen. * Current home cardiac medications include aspirin 325 mg daily and pravastatin 40 mg at night * Most recent echocardiogram obtained in February 2021 revealing ejection fraction 55%, mild MR, mild TR REVIEW OF SYSTEMS: At the time of my exam: CONSTITUTIONAL: Denies fever or chills. HEENT: Denies blurred vision, vision changes, or eye pain. Denies hemoptysis CARDIOVASCULAR: Denies chest pain. Denies orthopnea. Denies PND. Denies palpitations RESPIRATORY: Denies shortness of breath. GASTROINTESTINAL: Denies abdominal pain. Denies nausea or vomiting. HEMATOLOGIC: Denies bleeding disorders. GENITOURINARY: Denies any blood in urine. SKIN: Denies pruitis. Denies rash. PHYSICAL EXAM: VITAL SIGNS: Reviewed. GENERAL: Well-developed in no acute distress. HEENT: Head is normocephalic. Pupils are equal, round. Sclerae anicteric. Mucous membranes of the mouth are moist. Neck supple. No JVD or thyromegaly LUNGS: Respirations even and unlabored. Lungs essentially clear to auscultation bilaterally. HEART: Regular rate and rhythm. S1 and S2 heard. ABDOMEN: Soft. Nondistended. Nontender. EXTREMITIES: Normal range of motion. No clubbing or cyanosis. Peripheral pulses intact. No lower extremity edema NEUROLOGIC: Awake and alert. Oriented x 3. ASSESSMENT: Parkinson's disease with deterioration over the past few months Bradycardia, ruled out, telemetry sinus mechanism with frequent PVCs Type 1 diabetes Hyperlipidemia PLAN: Obtain 2-D echo to assess cardiac structure and function Continue telemetry monitoring. Currently sinus mechanism with frequent PVCs. No indication for pacemaker implantation at this time. TSH checked and within normal with a 1.620 Continue to monitor blood pressure. Further recommendations pending patient's course Nurse practitioner note has been reviewed by physician. Signing provider agrees with the documented findings, assessment, and plan of care. Past Medical History Past Medical History: Diabetes Mellitus, Eye Disorder, Hypertension, Seizure Disorder Additional Past Medical History / Comment(s): encephalopathy; RASH LEFT ANKLE,VARICOSE VEINS,EYE FLOATERS,TREMORS,SEIZURES WITH LOW BLOOD SUGAR-LAST SEIZURE APPROX JUN 2015 parkinson History of Any Multi-Drug Resistant Organisms: VRE Date of last positivie culture/infection: 02/26/23 MDRO Source:: Urine Past Surgical History: Orthopedic Surgery Additional Past Surgical History / Comment(s): cataracts bilateral. total left knee. left index finger thea placement Past Anesthesia/Blood Transfusion Reactions: No Reported Reaction Past Psychological History: No Psychological Hx Reported Smoking Status: Former smoker Past Alcohol Use History: None Reported Additional Past Alcohol Use History / Comment(s): QUIT SMOKING 1974,STARTED 1973 Past Drug Use History: None Reported - Past Family History Brother(s) Family Medical History: Diabetes Mellitus Sister(s) Family Medical History: Diabetes Mellitus Additional Family Medical History / Comment(s): MS Father Family Medical History: Cancer, Diabetes Mellitus Additional Family Medical History / Comment(s): COLON CA Medications and Allergies Home Medications Medication Instructions Recorded Confirmed Type Insulin Glargine [Lantus Vial] 22 units SQ HS 03/28/14 08/30/23 History Multivitamin [Men's Multi-Vitamin] 1 tab PO DAILY 03/28/14 08/30/23 History lamoTRIgine 200 mg PO BID@0800,1700 03/28/14 08/30/23 History Aspirin EC [Ecotrin] 325 mg PO DAILY 04/09/16 08/30/23 History Calcium Carbonate [Calcium] 600 mg PO DAILY@1200 02/20/21 08/30/23 History Carbidopa-Levodopa 25-100 mg 1 tab PO TID@0800,1200,1700 08/09/22 08/30/23 History [Sinemet 25-100 mg] Tamsulosin [Flomax] 0.4 mg PO BID cap 08/19/22 08/30/23 Rx Donepezil [Aricept] 5 mg PO HS tab 08/27/22 08/30/23 Rx Memantine [Namenda] 5 mg PO BID tab 08/27/22 08/30/23 Rx QUEtiapine [SEROquel] 25 mg PO BID tab 08/27/22 08/30/23 Rx INSULIN ASPART (NovoLOG) [NovoLOG See Protocol SQ AC-TID 08/30/23 08/30/23 History (formulary)] Mirtazapine 7.5 mg PO HS 08/30/23 08/30/23 History Pravastatin Sodium [Pravachol] 40 mg PO HS 08/30/23 08/30/23 History Timolol 0.5% Ophth Soln [Timoptic 1 drop BOTH EYES DAILY 08/30/23 08/30/23 History 0.5% Ophth Soln] Allergies Allergy/AdvReac Type Severity Reaction Status Date / Time Penicillins Allergy Rash/Hives Verified 08/30/23 14:51 Physical Exam Vitals: Vital Signs Temp Pulse Pulse Resp BP BP Pulse Ox 08/31/23 04:00 67 16 125/69 100 08/31/23 00:00 77 16 111/61 96 08/30/23 21:17 98.2 F 73 16 163/75 95 08/30/23 20:06 97.9 F 72 18 83/69 96 08/30/23 17:02 57 L 18 117/82 08/30/23 16:33 65 20 157/90 98 08/30/23 14:40 64 17 134/58 08/30/23 14:30 68 14 133/67 08/30/23 14:20 67 15 133/67 08/30/23 14:10 70 18 138/95 08/30/23 14:00 63 14 149/65 08/30/23 13:50 72 13 149/65 08/30/23 13:30 71 16 112/75 99 12/08/23 13:28 48 L 18 99 08/30/23 13:20 68 13 138/102 99 08/30/23 12:47 98 F 40 L 16 185/73 100 Intake and Output 08/30/23 08/31/23 08/31/23 22:59 06:59 14:59 Intake Total 540 540 Balance 540 540 Intake: Oral 540 540 Other: Voiding Method Toilet Toilet # Voids 2 Weight 72.575 kg Results 08/31/23 08:28 08/31/23 08:28 Cardiac Enzymes 08/30/23 08/30/23 Range/Units 13:33 13:33 AST 25 (17-59) U/L Troponin I <0.012 (0.000-0.034) ng/mL Coagulation 08/30/23 Range/Units 13:33 PT 10.3 (10.0-12.5) sec APTT 23.8 (22.0-30.0) sec CBC 08/30/23 Range/Units 13:33 WBC 4.8 (3.8-10.6) k/uL RBC 4.37 (4.30-5.90) m/uL Hgb 13.4 (13.0-17.5) gm/dL Hct 40.3 (39.0-53.0) % Plt Count 176 (150-450) k/uL Comprehensive Metabolic Panel 08/30/23 Range/Units 13:33 Sodium 142 (137-145) mmol/L Potassium 4.5 (3.5-5.1) mmol/L Chloride 104 (98-107) mmol/L Carbon Dioxide 27 (22-30) mmol/L BUN 31 H (9-20) mg/dL Creatinine 0.94 (0.66-1.25) mg/dL Glucose 151 H (74-99) mg/dL Calcium 9.3 (8.4-10.2) mg/dL AST 25 (17-59) U/L ALT 22 (4-49) U/L Alkaline Phosphatase 80 (38-126) U/L Total Protein 7.1 (6.3-8.2) g/dL Albumin 4.3 (3.5-5.0) g/dL Current Medications Generic Name Dose Route Start Last Admin Trade Name Freq PRN Reason Stop Dose Admin Acetaminophen 650 mg 08/30/23 16:37 Acetaminophen Tab 325 Mg Tab PO Q6HR PRN Mild Pain or Fever > 100.5 Aspirin 325 mg 08/31/23 09:00 Aspirin 325 Mg Tab PO DAILY [facility] Calcium Carbonate/Glycine 500 mg 08/31/23 12:00 Calcium Carbonate 500 Mg Chewable PO DAILY@1200 [facility] Carbidopa/Levodopa 1 each 08/31/23 08:00 Carbidopa-Levodopa 25-100 Mg 1 Each Tab PO TID@0800,1200,1700 [facility] Dextrose/Water 25 ml 08/30/23 21:00 Dextrose 50% Syringe 50 Ml IVP PER PROTOCOL PRN Hypoglycemia Protocol Dextrose/Water 50 ml 08/30/23 21:00 08/31/23 06:50 Dextrose 50% Syringe 50 Ml IVP 50 ml PER PROTOCOL PRN Administration Hypoglycemia Protocol Donepezil HCl 5 mg 08/30/23 21:00 08/30/23 21:48 Donepezil 5 Mg Tab PO 5 mg HS [facility] Administration Ceftriaxone Sodium 1 gm/ 50 mls @ 100 mls/hr 08/30/23 16:22 08/30/23 21:49 Sodium Chloride IVPB 100 mls/hr Q12HR [facility] Administration Protocol Sodium Chloride 1,000 mls @ 75 mls/hr 08/30/23 16:45 08/31/23 06:08 Saline 0.9% IV 75 mls/hr .[id number] [facility] Administration Insulin Aspart 0 unit 08/30/23 21:00 08/31/23 06:07 Insulin Aspart (Novolog) 100 Unit/Ml Vial SQ Not Given ACHS [facility] Protocol Insulin Detemir 22 unit 08/30/23 21:00 08/30/23 21:47 Insulin Detemir (Levemir) 100 Unit/Ml Syr SQ 22 unit HS [facility] Administration Lamotrigine 200 mg 08/31/23 08:00 Lamotrigine 100 Mg Tab PO BID@0800,1700 [facility] Memantine 5 mg 08/30/23 21:00 08/30/23 21:48 Memantine 5 Mg Tab PO 5 mg BID [facility] Administration Mirtazapine 7.5 mg 08/30/23 21:00 08/30/23 21:48 Mirtazapine 15 Mg Tab PO 7.5 mg HS [facility] Administration Multivitamins 1 each 08/31/23 09:00 Multivitamins, Thera 1 Each Tab PO DAILY [facility] Naloxone HCl 0.2 mg 08/30/23 16:37 Naloxone 0.4 Mg/Ml 1 Ml Vial IV Q2M PRN Opioid Reversal Pravastatin Sodium 40 mg 08/30/23 21:00 08/30/23 21:48 Pravastatin Sodium 40 Mg Tab PO 40 mg HS [facility] Administration Quetiapine Fumarate 25 mg 08/30/23 21:00 08/30/23 21:49 Quetiapine 25 Mg Tab PO 25 mg BID [facility] Administration Tamsulosin HCl 0.4 mg 08/30/23 21:00 08/30/23 21:48 Tamsulosin 0.4 Mg Cap.Er.24h PO 0.4 mg BID [facility] Administration Timolol Maleate 1 drops 08/31/23 09:00 Timolol 0.5% Ophth Drops 5 Ml Btl BOTH EYES DAILY [facility] Intake and Output 08/30/23 08/31/23 08/31/23 22:59 06:59 14:59 Intake Total 540 540 Balance 540 540 Intake: Oral 540 540 Other: Voiding Method Toilet Toilet # Voids 2 Weight 72.575 kg 08/30/23 13:33 08/30/23 13:33
[2023-08-31 11:49] LABS: Glucose,Whole Blood 178 mg/dL (70-110)
[2023-08-31] MEDS: CALCIUM CARBONATE 500 MG CHEWABLE PO SCH (12:19)
[2023-08-31] MEDS: ENOXAPARIN 40 MG/0.4 ML SYRINGE SQ SCH (12:19)
--- NOTE | 2023-08-31 13:39 | CA ---
Transthoracic Echo Report Name: Thang Key Age: 72 Gender: M : 1950 Exam Date: 08/31/2023 11:56 Exam Location: [facility] Ht (in): 72 Wt (lb): 160 Ordering Physician: Jyoti Cuevas Attending/Referring Phys: [id number], Fatih [employer] Christina Mancuso [facility] Procedure CPT: Indications: LV function Cardiac Hx: Technical Quality: Fair Contrast 1: Total Dose (mL): Contrast 2: Total Dose (mL): MEASUREMENTS (Male / Female) Normal Values 2D ECHO LV Diastolic Diameter PLAX 4.6 cm 4.2 - 5.9 / 3.9 - 5.3 cm LV Systolic Diameter PLAX 3.1 cm IVS Diastolic Thickness 0.9 cm 0.6 - 1.0 / 0.6 - 0.9 cm LVPW Diastolic Thickness 0.9 cm 0.6 - 1.0 / 0.6 - 0.9 cm LV Relative Wall Thickness 0.4 LVOT Diameter 2.0 cm Ascending Aorta Diameter 3.2 cm M-MODE Aortic Root Diameter MM 2.6 cm LA Systolic Diameter MM 4.3 cm LA Ao Ratio MM 1.7 AV Cusp Separation MM 2.1 cm DOPPLER AV Peak Velocity 119.5 cm/s AV Peak Gradient 5.7 mmHg AV Mean Velocity 87.6 cm/s AV Mean Gradient 3.3 mmHg AV Velocity Time Integral 26.7 cm LVOT Peak Velocity 107.8 cm/s LVOT Peak Gradient 4.6 mmHg LVOT Velocity Time Integral 22.6 cm LVOT Stroke Volume 70.5 cm??? LVOT Stroke Volume Index 36.4 ml/m??? LVOT Cardiac Index 2540.4 cm???/min???m??? AV Area Cont Eq vti 2.6 cm??? AV Area Cont Eq pk 2.8 cm??? Mitral E Point Velocity 106.3 cm/s Mitral A Point Velocity 109.6 cm/s Mitral E to A Ratio 1.0 MV Deceleration Time 179.2 ms LV E' Lateral Velocity 7.7 cm/s Mitral E to LV E' Lateral Ratio 13.8 LV E' Septal Velocity 9.5 cm/s Mitral E to LV E' Septal Ratio 11.2 TR Peak Velocity 250.0 cm/s TR Peak Gradient 25.0 mmHg Right Atrial Pressure 15.0 mmHg Pulmonary Artery Systolic Pressu 40.0 mmHg Right Ventricular Systolic Press 40.0 mmHg FINDINGS Left Ventricle Left ventricular wall thickness normal. Left ventricular cavity size normal. Normal left ventricular systolic function with no obvious regional wall motion abnormalities. Left ventricular ejection fraction is estimated at 55-60%. Right Ventricle Normal right ventricular size. Mild pulmonary hypertension. Right Atrium Normal right atrial size. Left Atrium Mild left atrial dilatation. Mitral Valve Mitral valve thickened. Mild mitral regurgitation. Aortic Valve Trileaflet aortic valve. Aortic valve sclerosis. No aortic valve stenosis or regurgitation. Tricuspid Valve Structurally normal tricuspid valve. Mild tricuspid regurgitation. Pulmonic Valve Structurally normal pulmonic valve. Mild pulmonic regurgitation. Pericardium No pericardial effusion. Aorta Normal size aortic root and proximal ascending aorta. CONCLUSIONS 1. Normal left ventricle size and systolic function 2. Mild mitral and tricuspid regurgitation with mild pulmonary hypertension Previewed by: Dr. Kandy Levine MD (Electronically Signed) Final Date: 31 August 2023 13:38
[2023-08-31 16:54] LABS: Glucose,Whole Blood 217 mg/dL (70-110)
[2023-08-31 19:48] LABS: Glucose,Whole Blood 254 mg/dL (70-110)
[2023-08-31] MEDS: MIRTAZAPINE 15 MG TAB PO SCH (20:35)
[2023-08-31] MEDS: DONEPEZIL 5 MG TAB PO SCH (20:35)
[2023-08-31] MEDS: PRAVASTATIN SODIUM 40 MG TAB PO SCH (20:35)
[2023-08-31] MEDS: INSULIN DETEMIR (LEVEMIR) 100 UNIT/ML SYR SQ SCH (20:35)
--- NOTE | 2023-08-31 21:17 | P.CN ---
Psychiatric Consult - . Consult date: 08/31/23 Consult:: Reason for Consult/Chief Complaint: depression History of Present Illness: the patient is a 72-year-old male who presented to the emergency department with a chief complaint of generalized weakness, sleeping most of the time at home, having frustration, his is stating that he has been refusing to eat or take medications. psychiatric team has been consulted to evaluate the patient for depression Patient was seen in the medical floor. Sources of information for medical record review by provider: patient and medical records. The patient was evacuated while lying on bed at the medical floor, and presents calm, cooperative with no signs of severe distress or agitation. The patient's home medications indicating history of Parkinson's disease, and cognitive impairment. The patient is currently maintained on Aricept, Namenda and Sinemet. The patient on saccharic medications Seroquel 25 milligram twice daily and Remeron 7.5 milligram at bedtime. The patient was alert and fully oriented to Time, place, person, and the situation. The patient presented with slow speech and sometimes stuttering. He reports feeling down, lack of motivation and diminishing pleasure in doing any activities. He endorses significant frustration because of his medical condition and how his is controlling his life. He explained that he doesn't have a chance to make decisions and his controls his medication, doctor appointments, and all his activities. The patient reports that sometimes hed like to go outside but she wouldnt drive him to go to places he wants. The patient reports that even though he sleeps for long hours but always feels restless and not rested. He endorses very interrupted sleep. The patient reported that he was diagnosed with Parkinson's disease one year ago which affected his speech, memory and the physical activity. He feels unhappy with his life especially since he was expecting to enjoy residential or traveling but he's not able to move and do many activities or practice reading which he used to like. He reports he has no friends to talk to and very limited social interaction that he doesn't talk to people except for his and doctors. The patient denies suicidal ideation and reports no history of suicidal behavior. The patient denies any history of homicidal ideation. The patient denies history of manic symptoms including times with elevated mood, and gra ndiosity, excessive energy was lack of asleep, or impulsive uninhibited behavior. The patient denies history of psychosis including hallucinations, paranoid ideation, delusions, romantic symptoms. Past psychiatric history: Psychiatric diagnosis: None reported, probably depressive disorder Previous psychiatric hospitalizations: none reported Previous suicidal attempts: None Previous/ current outpatient psychiatric treatment: The patient is currently on Seroquel 25 mg PO BID and Remeron 7.5 mg PO HS. Substance use history: Nicotine: Quit many years ago after smoking cigarettes for only one year. Alcohol: Denies Denies using any illicit drugs Social/ Developmental History: The patient currently lives with his . He has no children The patient is retired, and he completed an associate degree as highest level of education. No history of childhood trauma. Family Psychiatric History: No family history of mental illness, suicide or substance use disorders. Mental Status Examination: Appearance: Appears stated age, groomed, belove average body built, and no specific features. Gait/ posture: Gait not examined as the patient was lying in bed. Attitude and Behavior: Engaged, partially cooperative, maintained eye contact during course of interview. Motor Activity: decreased psychomotor activity. Speech: slow rate, abnormal rhythm, articulation, and prosody. None pressured. Mood: " frustrated Affect: Restricted, congruent to mood, appropriate to context and situation. Thought form: Goal directed, linear, and relevant, not incoherent and no clang association. Thought content: Logical, non-delusional, denies suicidal, homicidal thoughts, intentions, or plans. Perception: Denies any auditory/ visual or tactile hallucinations. Attention: No impairment. Orientation: Oriented to time, place, person, and situation. Insight & Judgment: fair Impulse control: fair Assessment: Depressive disorder, unspecified. Recommendation: Addressed and ensured patient's safety, patient does not meet the criteria for psychiatric hospitalization. Currently there is no need for further follow-up by the psychiatric team. Medication management: Continue Seroquel 25 mg PO twice daily for depression and the mood stabilization period Increase Remeron to 15 mg at bedtime for depression symptoms and to help with restless sleep. Refer the patient to outpatient psychiatric treatment after discharge. Brief supportive psychotherapy and psychoeducation was provided to the patient. Discussed the treatment plan with the requesting physician/service. Thank you for permitting me to assist in this patient's treatment. Please call the psychiatry department if you have any questions or need further help with this case. 08/31/23 21:15
[2023-09-01 06:05] LABS: Glucose,Whole Blood 160 mg/dL (70-110)
[2023-09-01] MEDS: INSULIN ASPART (NovoLOG) 100 UNIT/ML VIAL SQ SCH ×4 (06:09→20:36)
[2023-09-01] MEDS: ASPIRIN 325 MG TAB PO SCH (10:15)
[2023-09-01] MEDS: lamoTRIgine 100 MG TAB PO SCH ×2 (10:15→17:13)
[2023-09-01] MEDS: MULTIVITAMINS, THERA 1 EACH TAB PO SCH (10:15)
[2023-09-01] MEDS: TAMSULOSIN 0.4 MG CAP.ER.24H PO SCH ×2 (10:16→20:46)
[2023-09-01] MEDS: CARBIDOPA-LEVODOPA 25-100 MG 1 EACH TAB PO SCH ×3 (10:16→17:13)
[2023-09-01] MEDS: QUEtiapine 25 MG TAB PO SCH ×2 (10:16→20:46)
[2023-09-01] MEDS: ENOXAPARIN 40 MG/0.4 ML SYRINGE SQ SCH (10:16)
[2023-09-01] MEDS: MEMANTINE 5 MG TAB PO SCH ×2 (10:16→20:46)
[2023-09-01] MEDS: TIMOLOL 0.5% OPHTH DROPS 5 ML BTL BOTH EYES SCH (10:17)
[2023-09-01 10:29] LABS: Glucose,Whole Blood 132 mg/dL (70-110)
--- NOTE | 2023-09-01 11:52 | P.PN ---
Subjective Progress Note Date: 09/01/23 [place], patient is a 19-year-old male patient of Dr. Aquino, who presented to [facility] emergency room with a chief complaint of generalized weakness, sleeping most of the time at home, having frustration, his is stating that he has been refusing to eat or take medications. He was evaluated in the emergency room vital examination on presentation revealed a temperature of 98 pulse 40 respiration 16 blood pressure 185/73 pulse ox 100% on room air Laboratory data revealed a white blood count of 4.8 hemoglobin 13.4 platelet count 176 sodium 142 potassium 4.5 chloride 104 CO2 27 BUN 31 creatinine 0.94 troponin less than 0.012 TSH 1.6 urine analysis revealed evidence of urinary tract infection Testing in the emergency room revealed EKG revealed sinus rhythm with frequent ventricular premature complexes in a bigeminal pattern, chest x-ray revealed interval development of a tiny right pleural effusion and no other significant abnormality. Patient was admitted to medical floor for further evaluation and treatment Past medical history is significant for history of Parkinson disease, history of insulin-dependent diabetes mellitus, history of hyperlipidemia, history of osteoarthritis, history of seizures associated with hypoglycemia On review of systems patient is alert and oriented 3 in no apparent distress his speech is slow, he is complaining of frequent urination, he is complaining of generalized weakness, he denies any other complaints there is no fever or chills no headache or dizziness no chest pain no shortness of breath no cough no nausea or vomiting no abdominal pain no diarrhea no blood in the stools no burning with urination, there is frequency and urgency, there is no hematuria. On 09/01/2023 I was contacted by the nurse about patient being very upset today and is refusing all medications vitals and blood work, he was requesting that hi s be contacted to come and pick him up as he wanted to leave the hospital, the nurse has contacted his who stated that she cannot have the patient come back home as she was unable to take care of him anymore and she wanted him transferred to a long-term care facility, patient was notified and he got more upset, he was requesting to have a new physician, at this time care will be terminated by myself, [facility] who are on city call at this time will be requested to assume care of this patient starting today. Objective - Vital Signs Vital signs: Vital Signs Temp 98.0 F 09/01/23 07:41 Pulse 73 09/01/23 08:00 Resp 16 09/01/23 08:00 BP 149/70 09/01/23 07:41 Pulse Ox 99 09/01/23 07:41 FiO2 Intake & Output 08/31/23 09/01/23 09/01/23 18:59 06:59 18:59 Intake Total 540 Output Total 325 Balance -325 540 Intake: Oral 540 Output: Urine 325 Other: Voiding Method Toilet Toilet Toilet # Voids 3 - Exam In general patient is alert and oriented x 3 in no distress HEENT head normocephalic and atraumatic Neck is supple no JVD no goiter no lymphadenopathy no carotid bruit Chest examination is clear to auscultation no crackles no wheezing Cardiac exam reveals irregular heart sounds S1 and S2 no gallops no murmurs Abdomen is soft nontender no organomegaly with normal bowel sounds Extremity exam reveals no edema no cyanosis or clubbing Neurological examination reveals no gross focal deficits - Labs CBC & Chem 7: 08/31/23 08:28 08/31/23 08:28 Labs: Abnormal Lab Results - Last 24 Hours (Table) 08/31/23 08/31/23 08/31/23 Range/Units 08:28 11:40 16:46 POC Glucose (mg/dL) 178 H 217 H (70-110) mg/dL Hemoglobin A1c 7.3 H (<=6.0) % 08/31/23 09/01/23 09/01/23 Range/Units 19:47 06:04 10:28 POC Glucose (mg/dL) 254 H 160 H 132 H (70-110) mg/dL Hemoglobin A1c (<=6.0) % Microbiology - Last 24 Hours (Table) 08/30/23 16:30 Blood Culture - Preliminary Blood 08/30/23 16:45 Blood Culture - Preliminary Blood Assessment and Plan Plan: Urinary tract infection Generalized weakness Bigeminy with bradycardia, will check echocardiogram will consult cardiology Underlying history of Parkinson disease Underlying history of dementia maintained on recent Underlying history of hyperlipidemia Underlying history of insulin-dependent diabetes mellitus Underlying history of osteoarthritis Previous history of seizures associated with hypoglycemia At this time patient is admitted to telemetry floor Home medications reviewed and reordered Patient was started on IV Rocephin in the emergency room, will continue at this time awaiting urine culture results For DVT prophylaxis subcu Lovenox Echocardiogram and cardiology consult requested Psychiatry consultation requested At this time patient will be transferred to [facility] physician per patient request
[2023-09-01 11:57] LABS: Glucose,Whole Blood 152 mg/dL (70-110)
--- NOTE | 2023-09-01 14:02 | P.PN ---
Progress Note - Text Progress Note Date: 09/01/23 [facility] assuming care. Patient would like to go to either [facility] or assisted living facility given his progressive parkinson's disease. Consult SW, PT, OT.
--- NOTE | 2023-09-01 14:55 | P.PN ---
Subjective Progress Note Date: 09/01/23 PROGRESS NOTE The patient is a 19-year-old male with known history of diabetes Parkinson disease who has been complaining of progressive weakness. He was upset today. He denies any chest discomfort, dizziness or palpitations, he continues to be in sinus mechanism. His echocardiogram showed a preserved systolic function with no segmental wall motion abnormality. On presentation his blood pressure was elevated but better after. He has no significant bradycardia Medications: Aspirin, Aricept, insulin, pravastatin 40 mg daily, Flomax PHYSICAL EXAMINATION: Blood pressure 125/60 heart rate 66 LUNGS: Clear to auscultation HEART: Regular rate and rhythm, S1, S2. No S3. Systolic ejection murmur ABDOMEN: Soft, nontender, no organomegaly EXTREMETIES: No edema IMPRESSION: 1. Parkinson disease with progressive weakness 2. Diabetes 3. Single PVCs, resolved 4. Hyperlipidemia PLAN: 1. From the cardiac standpoint he stable, he has no significant bradycardia arrhythmia and no indications for pacemaker 2. We will see him on as needed basis, please feel free to call us for any questions. Objective - Vital Signs Vital signs: Vital Signs Temp 97.8 F 09/01/23 12:02 Pulse 66 09/01/23 12:02 Resp 16 09/01/23 12:02 BP 125/63 09/01/23 12:02 Pulse Ox 99 09/01/23 12:02 FiO2 Intake & Output 08/31/23 09/01/23 09/01/23 18:59 06:59 18:59 Intake Total 540 Output Total 325 Balance -325 540 Intake: Oral 540 Output: Urine 325 Other: Voiding Method Toilet Toilet Toilet # Voids 3 - Labs CBC & Chem 7: 08/31/23 08:28 08/31/23 08:28 Labs: Abnormal Lab Results - Last 24 Hours (Table) 08/31/23 08/31/23 09/01/23 Range/Units 16:46 19:47 06:04 POC Glucose (mg/dL) 217 H 254 H 160 H (70-110) mg/dL 09/01/23 09/01/23 Range/Units 10:28 11:33 POC Glucose (mg/dL) 132 H 152 H (70-110) mg/dL Microbiology - Last 24 Hours (Table) 08/30/23 16:30 Blood Culture - Preliminary Blood 08/30/23 16:45 Blood Culture - Preliminary Blood
[2023-09-01] MEDS: CALCIUM CARBONATE 500 MG CHEWABLE PO SCH (16:11)
[2023-09-01 16:37] LABS: Glucose,Whole Blood 278 mg/dL (70-110)
[2023-09-01 16:37] LABS: Glucose,Whole Blood 585 mg/dL (70-110)
[2023-09-01] MEDS: SODIUM CHLORIDE 0.9% 1,000 ML IV SCH ×2 (17:35→20:47)
[2023-09-01] MEDS: PRAVASTATIN SODIUM 40 MG TAB PO SCH (20:46)
[2023-09-01] MEDS: MIRTAZAPINE 15 MG TAB PO SCH (20:46)
[2023-09-01] MEDS: DONEPEZIL 5 MG TAB PO SCH (20:46)
[2023-09-01] MEDS: INSULIN DETEMIR (LEVEMIR) 100 UNIT/ML SYR SQ SCH (20:46)
[2023-09-02 02:17] LABS: Glucose,Whole Blood 205 mg/dL (70-110)
[2023-09-02 02:17] LABS: Glucose,Whole Blood 293 mg/dL (70-110)
[2023-09-02 06:08] LABS: Glucose,Whole Blood 91 mg/dL (70-110)
[2023-09-02] MEDS: INSULIN ASPART (NovoLOG) 100 UNIT/ML VIAL SQ SCH ×4 (06:20→21:30)
[2023-09-02 08:11] LABS: Glucose,Whole Blood 62 mg/dL (70-110)
[2023-09-02] MEDS: DEXTROSE 50% SYRINGE 50 ML IVP PRN (08:14)
[2023-09-02 08:35] LABS: Glucose,Whole Blood 99 mg/dL (70-110)
[2023-09-02 08:59] LABS: Glucose,Whole Blood 110 mg/dL (70-110)
[2023-09-02] MEDS: MEMANTINE 5 MG TAB PO SCH ×2 (09:33→21:23)
[2023-09-02] MEDS: CARBIDOPA-LEVODOPA 25-100 MG 1 EACH TAB PO SCH ×3 (09:33→17:00)
[2023-09-02] MEDS: ASPIRIN 325 MG TAB PO SCH (09:33)
[2023-09-02] MEDS: TAMSULOSIN 0.4 MG CAP.ER.24H PO SCH ×2 (09:33→21:23)
[2023-09-02] MEDS: MULTIVITAMINS, THERA 1 EACH TAB PO SCH (09:34)
[2023-09-02] MEDS: ENOXAPARIN 40 MG/0.4 ML SYRINGE SQ SCH (09:34)
[2023-09-02] MEDS: lamoTRIgine 100 MG TAB PO SCH ×2 (09:34→17:00)
[2023-09-02] MEDS: QUEtiapine 25 MG TAB PO SCH ×2 (09:34→21:23)
[2023-09-02] MEDS: TIMOLOL 0.5% OPHTH DROPS 5 ML BTL BOTH EYES SCH (09:35)
[2023-09-02 11:19] LABS: Glucose,Whole Blood 72 mg/dL (70-110)
[2023-09-02] MEDS: CALCIUM CARBONATE 500 MG CHEWABLE PO SCH (12:40)
[2023-09-02] MEDS: SODIUM CHLORIDE 0.9% 1,000 ML IV SCH (12:42)
--- NOTE | 2023-09-02 15:19 | P.PN ---
Subjective Progress Note Date: 09/02/23 Hospital course: Patient is a very pleasant 72-year-old male with a past medical history of insulin-dependent diabetes mellitus, seizure disorder, and Parkinson's disease. He was admitted to the hospital on 08/31/23 secondary to presenting with a chief complaint of generalized weakness, excess sleepiness, and changes in mentation with outbursts of anger and frustration refusing to take medications or eat at home. Upon arrival to our facility patient underwent full evaluation. Vital signs upon arrival blood pressure 185/73, heart rate 40, respiratory rate 16, temp 98.0F, respiratory rate 16, SpO2 100% on room air. EKG was completed showing normal sinus rhythm at 76 bpm with frequent PVCs in bigeminy pattern upon personal review and interpretation. Labs were completed and reviewed. CBC and coagulation profile were unremarkable. BMP revealing mild prerenal azotemia with BUN of 31 otherwise normal findings. Blood glucose was 151. Liver profile unremarkable. Magnesium normal findings at 2.3. Troponin negative at less than 0.012. TSH 1.620. Urine drug screen positive for tricyclic antidepressants. Serum alcohol was negative. Urinalysis was positive for blood and infection. Patient was initially admitted under a different hospitalist group and on 11/02/22 patient's admission transferred to our services per family request for continued care and management. In the morning of 09/02/23 patient's urine culture showing positive for multi drug-resistant Enterococcus faecium VRE. Rocephin discontinued and patient placed on daptomycin 450 mg/daily IVP (daptomy liv 6mg/kg/dose). Physical exam: Vital signs reviewed and stable. General: Nontoxic, no distress and appears stated age. Derm: Skin warm and dry, normal coloration for ethnicity. Head: Atraumatic, normocephalic and symmetric. Eyes: EOMs intact, no lid lag, and anicteric sclera Mouth: no lip lesions, mucus membranes moist Cardiovascular: regular rate and rhythm with normal S1S2, no murmur, positive posterior tibial pulses bilaterally, and cap refill < 2 seconds. Lungs: Respirations even, regular, and unlabored on room air. Abdominal: soft, nontender to palpation, no guarding, no appreciable organomegaly Ext: ROM intact. No gross muscle atrophy, no edema, no contractures Neuro: Speech clear, face symmetrical and CN II-XII grossly intact with no noted focal neuro deficits Psych: Alert and oriented to person, place, time, and situation. Appropriate and pleasant affect. Assessment and Plan of Care: Complicated UTI with Enterococcus faecium VRE Generalized weakness and fatigue, likely secondary to above. Parkinson's disease -Urine culture positive for multi resistant Enterococcus faecium VRE -Blood cultures showing no growth to date. -Rocephin discontinued and patient placed on daptomycin 450 mg/daily IVP (daptomycin 6mg/kg/dose). -Hold pravastatin until treatment course is complete with daptomycin -Consult placed to infectious disease -PT/OT following Recurrent episodes of Hypoglycemia -Patient has been with recurrent episodes of hypoglycemia since admission. Hypoglycemic events have been noted to occur each morning with blood glucose 50s to 60s. Currently blood glucose 62. Patient has not been receiving additional insulin at bedtime dose and therefore will decrease Levemir from 22 units nightly to 15 units nightly and continue to monitor glucose levels closely for any further signs of hypoglycemia. History of seizure disorder -Continue Lamictal for 200 mg twice daily. -Seizure and fall precautions in place. Parkinson's disease -Continue daily medication regimen with carbidopa/levodopa 25/100 mg tablets 3 times daily, Aricept 5 mg nightly, Namenda 5 mg twice daily, Remeron 15 mg nightly, and Seroquel 25 mg twice daily. Data and imaging reviewed: Urine culture positive for multi resistant Enterococcus faecium VRE. Blood cultures showing no growth to date. Vital signs reviewed. Blood pressure 129/61, heart rate 64, respiratory rate 20, temp 98.0F, and SpO2 of 97% on room air. CODE STATUS: Full code DVT prophylaxis: Lovenox Anticipated discharge date: Clinical course to determine Anticipated discharge place: clinical course to determine Patient was seen independently by Nurse Pracitioner. This document was prepared using Rep dictation software. Please allow for errors in welding equipment repairer, while rare they do occur. Chidi Moon NP rendered care for this patient independently, reviewed the findings and plan as documented in the note above. I did not physically speak with or examine the patient on this date. Objective - Vital Signs Vital signs: Vital Signs Temp 98.1 F 09/02/23 03:50 Pulse 67 09/02/23 03:50 Resp 16 09/02/23 03:50 BP 134/66 09/02/23 03:50 Pulse Ox 97 09/02/23 03:50 FiO2 Intake & Output 09/01/23 09/02/23 09/02/23 18:59 06:59 18:59 Intake Total 118 Balance 118 Intake: Oral 118 Other: Voiding Method Toilet Toilet # Voids 1 - Labs CBC & Chem 7: 08/31/23 08:28 08/31/23 08:28 Labs: Abnormal Lab Results - Last 24 Hours (Table) 09/01/23 09/01/23 09/01/23 Range/Units 10:28 11:33 16:16 POC Glucose (mg/dL) 132 H 152 H 585 H (70-110) mg/dL 09/01/23 09/01/23 09/02/23 Range/Units 16:17 20:19 01:58 POC Glucose (mg/dL) 278 H 293 H 205 H (70-110) mg/dL 09/02/23 Range/Units 08:09 POC Glucose (mg/dL) 62 L (70-110) mg/dL Microbiology - Last 24 Hours (Table) 08/30/23 16:30 Blood Culture - Preliminary Blood 08/30/23 16:45 Blood Culture - Preliminary Blood
[2023-09-02 16:23] LABS: Glucose,Whole Blood 142 mg/dL (70-110)
[2023-09-02 20:21] LABS: Glucose,Whole Blood 270 mg/dL (70-110)
[2023-09-02] MEDS ORDERED: LINEZOLID 600 MG in DEXTROSE/WATER 1 300ML.BAG IVPB SCH (21:00)
[2023-09-02] MEDS: MIRTAZAPINE 15 MG TAB PO SCH (21:23)
[2023-09-02] MEDS: DONEPEZIL 5 MG TAB PO SCH (21:23)
[2023-09-02] MEDS: INSULIN DETEMIR (LEVEMIR) 100 UNIT/ML SYR SQ SCH (21:29)
[2023-09-03 06:22] LABS: Glucose,Whole Blood 252 mg/dL (70-110)
[2023-09-03] MEDS: INSULIN ASPART (NovoLOG) 100 UNIT/ML VIAL SQ SCH ×6 (06:31→20:41)
[2023-09-03] MEDS: QUEtiapine 25 MG TAB PO SCH ×2 (08:42→20:27)
[2023-09-03] MEDS: TAMSULOSIN 0.4 MG CAP.ER.24H PO SCH ×2 (08:42→20:27)
[2023-09-03] MEDS: CARBIDOPA-LEVODOPA 25-100 MG 1 EACH TAB PO SCH ×3 (08:42→17:29)
[2023-09-03] MEDS: MEMANTINE 5 MG TAB PO SCH ×2 (08:42→20:27)
[2023-09-03] MEDS: MULTIVITAMINS, THERA 1 EACH TAB PO SCH (08:42)
[2023-09-03] MEDS: ENOXAPARIN 40 MG/0.4 ML SYRINGE SQ SCH (08:42)
[2023-09-03] MEDS: ASPIRIN 325 MG TAB PO SCH (08:42)
[2023-09-03] MEDS: lamoTRIgine 100 MG TAB PO SCH ×2 (08:42→17:29)
[2023-09-03] MEDS: TIMOLOL 0.5% OPHTH DROPS 5 ML BTL BOTH EYES SCH (08:43)
--- NOTE | 2023-09-03 08:49 | P.CONS ---
History of Present Illness - Reason for Consult Consult date: 09/02/23 VRE urinary tract infection Requesting physician: Chidi Moon - Chief Complaint Weakness and confusion x one day - History of Present Illness Patient is a 72-year-old male with a past medical history significant for diabetes mellitus hypertension seizure disorder patient have history of recurrent UTI presenting to the hospital on 08/30/2023 for evaluation of more frequent sleeping frustration and not feeling well and apparently patient has refused to eat and not take his medication for several days patient was evaluated on presentation to the hospital patient was afebrile and no fever has been recorded subsequently patient did have a white count of 4.8 creatinine 0.80 0 he did have a positive UA urine dressing was positive for tricyclic urine culture has been finalized with the VRE that is resistant to ampicillin patient was started on daptomycin infectious disease was consulted for further management of antibiotic therapy patient did mention did have some difficulty urination and also some burning denies suprapubic or flank pain did have some nausea but no vomiting Review of Systems Positive point and negatives has been mentioned in the HPI, complete review of systems was performed and all other systems are negative Past Medical History Past Medical History: Diabetes Mellitus, Eye Disorder, Hypertension, Seizure Disorder Additional Past Medical History / Comment(s): encephalopathy; RASH LEFT ANKLE,VARICOSE VEINS,EYE FLOATERS,TREMORS,SEIZURES WITH LOW BLOOD SUGAR-LAST SEIZURE APPROX JUN 2015 parkinson History of Any Multi-Drug Resistant Organisms: VRE Year Discovered:: 02/26/23 MDRO Source:: Urine Past Surgical History: Orthopedic Surgery Additional Past Surgical History / Comment(s): cataracts bilateral. total left knee. left index finger thea placement Past Anesthesia/Blood Transfusion Reactions: No Reported Reaction Past Psychological History: No Psychological Hx Reported Smoking Status: Former smoker Past Alcohol Use History: None Reported Additional Past Alcohol Use History / Comment(s): QUIT SMOKING 1974,STARTED 1973 Past Drug Use History: None Reported - Past Family History Brother(s) Family Medical History: Diabetes Mellitus Sister(s) Family Medical History: Diabetes Mellitus Additional Family Medical History / Comment(s): MS Father Family Medical History: Cancer, Diabetes Mellitus Additional Family Medical History / Comment(s): COLON [place] Medications and Allergies Home Medications Medication Instructions Recorded Confirmed Type Multivitamin [Men's Multi-Vitamin] 1 tab PO DAILY 03/28/14 08/30/23 History lamoTRIgine 200 mg PO BID@0800,1700 03/28/14 08/30/23 History Aspirin EC [Ecotrin] 325 mg PO DAILY 04/09/16 08/30/23 History Calcium Carbonate [Calcium] 600 mg PO DAILY@1200 02/20/21 08/30/23 History Carbidopa-Levodopa 25-100 mg 1 tab PO TID@0800,1200,1700 08/09/22 08/30/23 History [Sinemet 25-100 mg] Tamsulosin [Flomax] 0.4 mg PO BID cap 08/19/22 08/30/23 Rx Donepezil [Aricept] 5 mg PO HS tab 08/27/22 08/30/23 Rx Memantine [Namenda] 5 mg PO BID tab 08/27/22 08/30/23 Rx QUEtiapine [SEROquel] 25 mg PO BID tab 08/27/22 08/30/23 Rx INSULIN ASPART (NovoLOG) [NovoLOG See Protocol SQ AC-TID 08/30/23 08/30/23 History (formulary)] Pravastatin Sodium [Pravachol] 40 mg PO HS 08/30/23 08/30/23 History Timolol 0.5% Ophth Soln [Timoptic 1 drop BOTH EYES DAILY 08/30/23 08/30/23 History 0.5% Ophth Soln] Insulin Glargine [Lantus Vial] 10 units SQ HS #0 09/05/23 08/30/23 Rx Mirtazapine [Remeron] 15 mg PO HS #90 tab 09/05/23 Rx Allergies Allergy/AdvReac Type Severity Reaction Status Date / Time Penicillins Allergy Rash/Hives Verified 08/30/23 14:51 Physical Exam Vitals: Vital Signs Temp Pulse Resp BP Pulse Ox 09/02/23 16:40 98.3 F 68 20 138/59 97 09/02/23 12:00 98.1 F 70 20 114/68 96 09/02/23 08:00 98 F 64 20 129/61 97 09/02/23 03:50 98.1 F 67 16 134/66 97 09/02/23 02:00 67 16 09/02/23 00:04 67 16 145/65 96 09/01/23 20:34 97.9 F 66 16 141/70 98 09/01/23 20:00 66 16 Intake and Output 09/02/23 09/02/23 09/02/23 06:59 14:59 22:59 Intake Total 225 Balance 225 Intake: Oral 225 Other: Voiding Method Toilet # Voids 1 2 GENERAL DESCRIPTION: An elderly male lying in bed, no distress. No tachypnea or accessory muscle of respiration use. HEENT: Shows Pallor , no scleral icterus. Oral mucous membrane is dry. No pharyngeal erythema or thrush NECK: Trachea central, no thyromegaly. LUNGS: Unlabored breathing. Clear to auscultation anteriorly. No wheeze or crackle. HEART: S1, S2, regular rate and rhythm. ABDOMEN: Soft, no tenderness , EXTREMITIES: No edema of feet. SKIN: No rash, no masses palpable. NEUROLOGICAL: The patient is awake, alert, oriented x2, mood and affect normal. Results CBC & Chem 7: 09/03/23 09:25 09/03/23 09:25 Labs: Abnormal Lab Results - Last 24 Hours (Table) 09/01/23 09/02/23 09/02/23 Range/Units 20:19 01:58 08:09 POC Glucose (mg/dL) 293 H 205 H 62 L (70-110) mg/dL 09/02/23 Range/Units 16:21 POC Glucose (mg/dL) 142 H (70-110) mg/dL Microbiology - Last 24 Hours (Table) 08/30/23 13:33 Urine Culture - Final Urine,Voided Enterococcus faecium VRE 08/31/23 16:01 Urine Culture - Preliminary Urine,Clean Catch Group D Enterococcus 08/30/23 16:30 Blood Culture - Preliminary Blood 08/30/23 16:45 Blood Culture - Preliminary Blood Assessment and Plan (1) Penicillin allergy Status: Acute Code(s): Z88.0 - ALLERGY STATUS TO PENICILLIN SNOMED Code(s): 96782664 (2) UTI (urinary tract infection) Status: Acute Code(s): N39.0 - URINARY TRACT INFECTION, SITE NOT SPECIFIED SNOMED Code(s): 59659990 (3) VRE (vancomycin resistant enterococcus) culture positive Status: Acute Code(s): Z22.39 - CARRIER OF OTHER SPECIFIED BACTERIAL DISEASES SNOMED Code(s): 259637678 Plan: 1patient presented to hospital with mental status changes weakness confusion which is likely multifactorial patient did have history of recurrent UTIs did have urinary symptoms and a positive UA concerning for symptomatic UTI more likely behaving as a cystitis rather than a deep infection 2-check ultrasound of the kidney bladder area to make an evidence of any obstruc tive uropathy responsible for these recurrent UTIs 3-continue the patient on daptomycin and a 3-day course should be enough for a possible cystitis We will follow on clinical condition and cultures to further adjust medication if needed Thank you for this consultation we will follow the patient along with you Dictation was produced using [employer] dictation software. please excuse any grammatical, word or spelling errors. Time with Patient: Greater than 30
[2023-09-03 09:53] LABS: HCT 34.8 % (39.0-53.0); HGB 11.4 gm/dL (13.0-17.5); MCH 30.2 pg (25.0-35.0); MCHC 32.8 g/dL (31.0-37.0); MCV 92.1 fL (80.0-100.0); Mean Platelet Volume 9.3; Platelet Count 151 k/uL (150-450); RBC 3.78 m/uL (4.30-5.90); RDW 12.9 % (11.5-15.5); WBC 4.9 k/uL (3.8-10.6)
[2023-09-03 10:12] LABS: ALT 9 U/L (4-49); AST 20 U/L (17-59); African American GFR (CKD) >90 (>60 ml/min/1.73 sqM); Albumin 3.6 g/dL (3.5-5.0); Alkaline Phosphatase 86 U/L (38-126); Anion Gap 9 mmol/L; Blood Urea Nitrogen 19 mg/dL (9-20); Calcium 8.8 mg/dL (8.4-10.2); Carbon Dioxide 26 mmol/L (22-30); Chloride 106 mmol/L (98-107); Glucose 126 mg/dL (74-99); Magnesium 2.4 mg/dL (1.6-2.3); Non-African American GFR(CKD) >90 (>60 ml/min/1.73 sqM); Potassium 3.8 mmol/L (3.5-5.1); Sodium 141 mmol/L (137-145); Total Bilirubin 0.4 mg/dL (0.2-1.3); Total Protein 6.1 g/dL (6.3-8.2)
--- NOTE | 2023-09-03 10:48 | US ---
EXAMINATION TYPE: US kidneys/renal and bladder DATE OF EXAM: 09/03/2023 Exam done portable COMPARISON: US 2021 CLINICAL INDICATION: Male, 72 years old with history of uti and bacteremia; EXAM MEASUREMENTS: Right Kidney: 10.3 x 4.9 x 4.8 cm Left Kidney: 9.4 x 6.5 x 4.7 cm Right Kidney: No hydronephrosis or masses seen, inferior pole limited by overlying bowel gas Left Kidney: 0.3 echogenic focus mid pole may be a nonobstructing renal stone, limited by overlying b owel gas Bladder: not fully distended, mild irregular wall thickening IMPRESSION: 1. Nonobstructing mid left renal stone
[2023-09-03 11:20] LABS: Glucose,Whole Blood 75 mg/dL (70-110)
[2023-09-03] MEDS: CALCIUM CARBONATE 500 MG CHEWABLE PO SCH (12:15)
--- NOTE | 2023-09-03 15:35 | P.PN ---
Subjective Progress Note Date: 09/03/23 Principal diagnosis: Reason for follow-up is the VRE urinary tract infection Patient is a 72-year-old male with a past medical history significant for diabetes mellitus hypertension seizure disorder patient have history of recurrent UTI presenting to the hospital for mental status changes and urinary symptoms patient has been diagnosed with a UTI and urine cultures came back positive the VRE On today's evaluation that is 09/03/2023, patient denies having any fever or any chills patient is breathing comfortably on room air mention did have a poor appetite and did not eat his breakfast patient denies having any chest pain shortness of cough no nausea no vomiting and no diarrhea Objective - Vital Signs Vital signs: Vital Signs Temp 97.9 F 09/03/23 11:52 Pulse 54 L 09/03/23 11:52 Resp 20 09/03/23 11:52 BP 134/58 09/03/23 11:52 Pulse Ox 97 09/03/23 11:52 FiO2 Intake & Output 09/02/23 09/03/23 09/03/23 18:59 06:59 18:59 Intake Total 450 335 Balance 450 335 Intake: Oral 450 335 Other: Voiding Method Toilet # Voids 2 1 - Exam GENERAL DESCRIPTION: An elderly male lying in bed in no distress RESPIRATORY SYSTEM: Unlabored breathing , clear to auscultation anteriorly HEART: S1 S2 regular rate and rhythm , ABDOMEN: Soft , no tenderness EXTREMITIES: No edema feet - Labs CBC & Chem 7: 09/03/23 09:25 09/03/23 09:25 Labs: Abnormal Lab Results - Last 24 Hours (Table) 09/02/23 09/02/23 09/03/23 Range/Units 16:21 20:20 06:16 RBC (4.30-5.90) m/uL Hgb (13.0-17.5) gm/dL Hct (39.0-53.0) % Glucose (74-99) mg/dL POC Glucose (mg/dL) 142 H 270 H 252 H (70-110) mg/dL Magnesium (1.6-2.3) mg/dL Total Protein (6.3-8.2) g/dL 09/03/23 09/03/23 Range/Units 09:25 09:25 RBC 3.78 L (4.30-5.90) m/uL Hgb 11.4 L (13.0-17.5) gm/dL Hct 34.8 L (39.0-53.0) % Glucose 126 H (74-99) mg/dL POC Glucose (mg/dL) (70-110) mg/dL Magnesium 2.4 H (1.6-2.3) mg/dL Total Protein 6.1 L (6.3-8.2) g/dL Microbiology - Last 24 Hours (Table) 08/31/23 16:01 Urine Culture - Final Urine,Clean Catch Enterococcus faecium VRE 08/30/23 16:30 Blood Culture - Preliminary Blood 08/30/23 16:45 Blood Culture - Preliminary Blood 08/30/23 13:33 Urine Culture - Final Urine,Voided Enterococcus faecium VRE Assessment and Plan (1) VRE (vancomycin resistant enterococcus) culture positive Current Visit: Yes Status: Acute Code(s): Z22.39 - CARRIER OF OTHER SPECIFIED BACTERIAL DISEASES SNOMED Code(s): 482239161 (2) UTI (urinary tract infection) Current Visit: Yes Status: Acute Code(s): N39.0 - URINARY TRACT INFECTION, SITE NOT SPECIFIED SNOMED Code(s): 21041479 Plan: 1patient presented to hospital with mental status changes weakness confusion which is likely multifactorial patient did have history of recurrent UTIs did have urinary symptoms and a positive UA concerning for symptomatic UTI more likely behaving as a cystitis rather than a deep infection 2-ultrasound of the kidney bladder area did not show any obstructive uropathy nonobstructing stone in the left kidney 3-patient to continue the patient on daptomycin and a 3-day course should be enough for a possible cystitis and no need for IV antibiotics on discharge, which the patient mention he will refuse any IV antibiotics on discharge Dictation was produced using [employer] dictation software. please excuse any grammatical, word or spelling errors. Time with Patient: Less than 30
--- NOTE | 2023-09-03 15:46 | P.PN ---
Subjective Progress Note Date: 09/03/23 Hospital course: Patient is a very pleasant 72-year-old male with a past medical history of insulin-dependent diabetes mellitus, seizure disorder, and Parkinson's disease. He was admitted to the hospital on 08/31/23 secondary to presenting with a chief complaint of generalized weakness, excess sleepiness, and changes in mentation with outbursts of anger and frustration refusing to take medications or eat at home. Upon arrival to our facility patient underwent full evaluation. Vital signs upon arrival blood pressure 185/73, heart rate 40, respiratory rate 16, temp 98.0F, respiratory rate 16, SpO2 100% on room air. EKG was completed showing normal sinus rhythm at 76 bpm with frequent PVCs in bigeminy pattern upon personal review and interpretation. Labs were completed and reviewed. CBC and coagulation profile were unremarkable. BMP revealing mild prerenal azotemia with BUN of 31 otherwise normal findings. Blood glucose was 151. Liver profile unremarkable. Magnesium normal findings at 2.3. Troponin negative at less than 0.012. TSH 1.620. Urine drug screen positive for tricyclic antidepressants. Serum alcohol was negative. Urinalysis was positive for blood and infection. Patient was initially admitted under a different hospitalist group and on 11/02/22 patient's admission transferred to our services per family request for continued care and management. Echocardiogram completed showing normal EF of 55-60% with mild mitral and tricuspid regurgitation and mild pulmonary hypertension. On the morning of 09/02/23 patient's urine culture showing positive for multi drug-resistant Enterococcus faecium VRE. Rocephin discontinued and patient placed on daptomycin 450 mg/daily IVP (daptomycin 6mg/kg/dose). Patient was evaluated by infectious disease recommending a 3 day course of daptomycin. Physical exam: Patient seen and fully evaluated at bedside this morning. Patient denies having any needs or complaints. He reports feeling tired this morning otherwise denies any needs. Vital signs reviewed and stable. General: Nontoxic, no distress and appears stated age. Derm: Skin warm and dry, normal coloration for ethnicity. Head: Atraumatic, normocephalic and symmetric. Eyes: EOMs intact, no lid lag, and anicteric sclera Mouth: no lip lesions, mucus membranes moist Cardiovascular: regular rate and rhythm with normal S1S2, no murmur, positive posterior tibial pulses bilaterally, and cap refill < 2 seconds. Lungs: Respirations even, regular, and unlabored on room air. Abdominal: soft, nontender to palpation, no guarding, no appreciable organomegaly Ext: ROM intact. No gross muscle atrophy, no edema, no contractures Neuro: Speech clear, face symmetrical and CN II-XII grossly intact with no noted focal neuro deficits Psych: Alert and oriented to person, place, time, and situation. Appropriate and pleasant affect. Assessment and Plan of Care: Complicated UTI with Enterococcus faecium VRE Generalized weakness and fatigue, likely secondary to above. Parkinson's disease -Urine culture positive for multi resistant Enterococcus faecium VRE -Blood cultures showing no growth to date. -Continue daptomycin 450 mg/daily IVPB dose 2/3 -Hold pravastatin until treatment course is complete with daptomycin -Infectious disease following, stated patient will only require a 3 day course of IV antibiotics with daptomycin for treatment of VRE UTI -PT/OT following Recurrent episodes of Hypoglycemia -Patient had been with recurrent episodes of hypoglycemia since admission. Hypoglycemic events were noted to occur each morning with blood glucose ranging from 50s to 60s. Decrease Levemir from 22 units nightly down to 15 units units nightly and patient has had no further episodes of hypoglycemia. Blood glucose over the past 24 hours ranging from 72-270. History of seizure disorder -Continue Lamictal for 200 mg twice daily. -Seizure and fall precautions in place. Parkinson's disease -Continue daily medication regimen with carbidopa/levodopa 25/100 mg tablets 3 times daily, Aricept 5 mg nightly, Namenda 5 mg twice daily, Remeron 15 mg nightly, and Seroquel 25 mg twice daily. Data and imaging reviewed: Blood cultures remained showing no growth today. Labs otherwise review CBC showing normocytic anemia with hemoglobin stable at 11.4. BMP unremarkable. Morning glucose 126. Liver profile unremarkable. Vital signs reviewed. Blood pressure 146/80, heart rate 70, respiratory rate 20, temperature 98.5F, SpO2 of 99% on room air. CODE STATUS: Full code DVT prophylaxis: Lovenox Anticipated discharge date: Likely 09/04/23 after completion of 3 day course of IV antibiotics with daptomycin Anticipated discharge place: Home with home care Patient was seen independently by Nurse Pracitioner. This document was prepared using [employer] dictation software. Please allow for errors in data processing systems project planner, while rare they do occur. Chidi Moon HR LEADER rendered care for this patient independently, reviewed the findings and plan as documented in the note above. I did not physically speak with or examine the patient on this date. Objective - Vital Signs Vital signs: Vital Signs Temp 97.8 F 09/03/23 04:00 Pulse 77 09/03/23 04:00 Resp 16 09/03/23 04:00 BP 135/62 09/03/23 04:00 Pulse Ox 97 09/03/23 04:00 FiO2 Intake & Output 09/02/23 09/03/23 09/03/23 18:59 06:59 18:59 Intake Total 450 Balance 450 Intake: Oral 450 Other: Voiding Method Toilet # Voids 2 1 - Labs CBC & Chem 7: 09/03/23 09:25 09/03/23 09:25 Labs: Abnormal Lab Results - Last 24 Hours (Table) 09/02/23 09/02/23 09/02/23 Range/Units 08:09 16:21 20:20 POC Glucose (mg/dL) 62 L 142 H 270 H (70-110) mg/dL 09/03/23 Range/Units 06:16 POC Glucose (mg/dL) 252 H (70-110) mg/dL Microbiology - Last 24 Hours (Table) 08/30/23 16:30 Blood Culture - Preliminary Blood 08/30/23 16:45 Blood Culture - Preliminary Blood 08/30/23 13:33 Urine Culture - Final Urine,Voided Enterococcus faecium VRE 08/31/23 16:01 Urine Culture - Preliminary Urine,Clean Catch Group D Enterococcus
[2023-09-03 16:29] LABS: Glucose,Whole Blood 227 mg/dL (70-110)
[2023-09-03] MEDS: MIRTAZAPINE 15 MG TAB PO SCH (20:27)
[2023-09-03] MEDS: DONEPEZIL 5 MG TAB PO SCH (20:27)
[2023-09-03 20:32] LABS: Glucose,Whole Blood 245 mg/dL (70-110)
[2023-09-03] MEDS: INSULIN DETEMIR (LEVEMIR) 100 UNIT/ML SYR SQ SCH (20:41)
[2023-09-04 01:45] LABS: Glucose,Whole Blood 79 mg/dL (70-110)
[2023-09-04 06:08] LABS: Glucose,Whole Blood 57 mg/dL (70-110)
[2023-09-04] MEDS: DEXTROSE 50% SYRINGE 50 ML IVP PRN (06:31)
[2023-09-04 06:36] LABS: Glucose,Whole Blood 55 mg/dL (70-110)
[2023-09-04] MEDS: INSULIN ASPART (NovoLOG) 100 UNIT/ML VIAL SQ SCH ×4 (06:40→20:33)
[2023-09-04 06:44] LABS: Glucose,Whole Blood 136 mg/dL (70-110)
[2023-09-04] MEDS: MEMANTINE 5 MG TAB PO SCH ×2 (08:29→20:32)
[2023-09-04] MEDS: MULTIVITAMINS, THERA 1 EACH TAB PO SCH (08:29)
[2023-09-04] MEDS: TAMSULOSIN 0.4 MG CAP.ER.24H PO SCH ×2 (08:29→20:32)
[2023-09-04] MEDS: ASPIRIN 325 MG TAB PO SCH (08:29)
[2023-09-04] MEDS: QUEtiapine 25 MG TAB PO SCH ×2 (08:29→20:32)
[2023-09-04] MEDS: ENOXAPARIN 40 MG/0.4 ML SYRINGE SQ SCH (08:29)
[2023-09-04] MEDS: lamoTRIgine 100 MG TAB PO SCH ×2 (08:29→17:23)
[2023-09-04] MEDS: CARBIDOPA-LEVODOPA 25-100 MG 1 EACH TAB PO SCH ×3 (08:29→17:23)
[2023-09-04] MEDS: TIMOLOL 0.5% OPHTH DROPS 5 ML BTL BOTH EYES SCH (08:30)
[2023-09-04] MEDS: CALCIUM CARBONATE 500 MG CHEWABLE PO SCH (11:07)
--- NOTE | 2023-09-04 11:08 | P.PN ---
Subjective Progress Note Date: 09/04/23 Hospital course: Patient is a very pleasant 72-year-old male with a past medical history of ins ulin-dependent diabetes mellitus, seizure disorder, and Parkinson's disease. He was admitted to the hospital on 08/31/23 secondary to presenting with a chief complaint of generalized weakness, excess sleepiness, and changes in mentation with outbursts of anger and frustration refusing to take medications or eat at home. Upon arrival to our facility patient underwent full evaluation. Vital signs upon arrival blood pressure 185/73, heart rate 40, respiratory rate 16, temp 98.0F, respiratory rate 16, SpO2 100% on room air. EKG was completed showing normal sinus rhythm at 76 bpm with frequent PVCs in bigeminy pattern upon personal review and interpretation. Labs were completed and reviewed. CBC and coagulation profile were unremarkable. BMP revealing mild prerenal azotemia with BUN of 31 otherwise normal findings. Blood glucose was 151. Liver profile unremarkable. Magnesium normal findings at 2.3. Troponin negative at less than 0.012. TSH 1.620. Urine drug screen positive for tricyclic antidepressants. Serum alcohol was negative. Urinalysis was positive for blood and infection. Patient was initially admitted under a different hospitalist group and on 11/02/22 patient's admission transferred to our services per family request for continued care and management. Echocardiogram completed showing normal EF of 55-60% with mild mitral and tricuspid regurgitation and mild pulmonary hypertension. On the morning of 09/02/23 patient's urine culture showing positive for multi drug-resistant Enterococcus faecium VRE. Rocephin discontinued and patient placed on daptomycin 450 mg/daily IVP (daptomycin 6mg/kg/dose). Patient was evaluated by infectious disease recommending a 3 day course of daptomycin. He is also having episodes of hypoglycemia in the morning, home Levemir dose decreased. Physical exam: Patient seen and fully evaluated at bedside this morning. Patient complains of feeling tired this morning due to his low blood sugars. Vital signs reviewed and stable. General: Nontoxic, no distress and appears stated age. Derm: Skin warm and dry, normal coloration for ethnicity. Head: Atraumatic, normocephalic and symmetric. Eyes: EOMs intact, no lid lag, and anicteric sclera Mouth: no lip lesions, mucus membranes moist Cardiovascular: regular rate and rhythm with normal S1S2, no murmur, positive posterior tibial pulses bilaterally, and cap refill < 2 seconds. Lungs: Respirations even, regular, and unlabored on room air. Abdominal: soft, nontender to palpation, no guarding, no appreciable organomegaly Ext: ROM intact. No gross muscle atrophy, no edema, no contractures Neuro: Speech clear but slow, face symmetrical and CN II-XII grossly intact with no noted focal neuro deficits, resting tremor Psych: Alert and oriented to person, place, time, and situation. Appropriate and pleasant affect. Assessment and Plan of Care: Patient needs close monitoring due to hypoglycemia. Prognosis guarded. Complicated UTI with Enterococcus faecium VRE Generalized weakness and fatigue, likely secondary to above. Parkinson's disease -Urine culture positive for multi resistant Enterococcus faecium VRE -Blood cultures showing no growth to date. -Continue daptomycin 450 mg/daily IVPB last dose today -Hold pravastatin until treatment course is complete with daptomycin -Infectious disease following, stated patient will only require a 3 day course of IV antibiotics with daptomycin for treatment of VRE UTI -PT/OT following Recurrent episodes of Hypoglycemia Insulin-dependent diabetes -Levemir decreased to 10 units at night -SSI, monitor for hypoglycemia History of seizure disorder -Continue Lamictal for 200 mg twice daily. -Seizure and fall precautions in place. Parkinson's disease -Continue daily medication regimen with carbidopa/levodopa 25/100 mg tablets 3 times daily, Aricept 5 mg nightly, Namenda 5 mg twice daily, Remeron 15 mg nightly, and Seroquel 25 mg twice daily. Data and imaging reviewed: BS range between 55-136 CODE STATUS: Full code DVT prophylaxis: Lovenox Anticipated discharge date: Likely tomorrow Anticipated discharge place: Home with home care Objective - Vital Signs Vital signs: Vital Signs Temp 98.3 F 09/04/23 08:00 Pulse 74 09/04/23 08:00 Resp 18 09/04/23 08:00 BP 136/73 09/04/23 08:00 Pulse Ox 97 09/04/23 08:00 FiO2 Intake & Output 09/03/23 09/04/23 09/04/23 18:59 06:59 18:59 Intake Total 610 240 Balance 610 240 Intake: Intake, IV Titration 50 Amount DAPTOmycin 450 mg In 50 Sodium Chloride 0.9% 50 ml @ 100 mls/hr IVPB Q24HR@1600 [facility] Rx#: [id number] Oral 560 240 Other: Voiding Method Toilet Toilet # Voids 1 2 1 # Bowel Movements 1 - Labs CBC & Chem 7: 09/03/23 09:25 09/03/23 09:25 Labs: Abnormal Lab Results - Last 24 Hours (Table) 09/03/23 09/03/23 09/04/23 Range/Units 16:27 20:30 06:07 POC Glucose (mg/dL) 227 H 245 H 57 L (70-110) mg/dL 09/04/23 09/04/23 Range/Units 06:29 06:37 POC Glucose (mg/dL) 55 L 136 H (70-110) mg/dL Microbiology - Last 24 Hours (Table) 08/31/23 16:01 Urine Culture - Final Urine,Clean Catch Enterococcus faecium VRE
[2023-09-04 11:28] LABS: Glucose,Whole Blood 248 mg/dL (70-110)
[2023-09-04 13:41] VITALS: BMI 21.7
[2023-09-04 16:59] LABS: Glucose,Whole Blood 254 mg/dL (70-110)
[2023-09-04 20:03] LABS: Glucose,Whole Blood 204 mg/dL (70-110)
[2023-09-04] MEDS: MIRTAZAPINE 15 MG TAB PO SCH (20:31)
[2023-09-04] MEDS: DONEPEZIL 5 MG TAB PO SCH (20:33)
[2023-09-04] MEDS ORDERED: INSULIN DETEMIR (LEVEMIR) 100 UNIT/ML SYR SQ SCH (21:00)
[2023-09-04 21:37] VITALS: RESP 18
[2023-09-05] MEDS ORDERED: polyethylene glycoL 3350 17 GM POWD.PACK PO STA (02:34)
[2023-09-05 06:10] LABS: Glucose,Whole Blood 167 mg/dL (70-110)
[2023-09-05] MEDS: INSULIN ASPART (NovoLOG) 100 UNIT/ML VIAL SQ SCH ×2 (06:28→11:27)
[2023-09-05] MEDS: CARBIDOPA-LEVODOPA 25-100 MG 1 EACH TAB PO SCH ×2 (08:00→11:14)
[2023-09-05] MEDS: TAMSULOSIN 0.4 MG CAP.ER.24H PO SCH (08:00)
[2023-09-05] MEDS: MULTIVITAMINS, THERA 1 EACH TAB PO SCH (08:00)
[2023-09-05] MEDS: ASPIRIN 325 MG TAB PO SCH (08:00)
[2023-09-05] MEDS: MEMANTINE 5 MG TAB PO SCH (08:00)
[2023-09-05] MEDS: lamoTRIgine 100 MG TAB PO SCH (08:00)
[2023-09-05] MEDS: ENOXAPARIN 40 MG/0.4 ML SYRINGE SQ SCH (08:01)
[2023-09-05] MEDS: QUEtiapine 25 MG TAB PO SCH (08:01)
[2023-09-05] MEDS: TIMOLOL 0.5% OPHTH DROPS 5 ML BTL BOTH EYES SCH (08:01)
--- NOTE | 2023-09-05 11:03 | P.DS ---
Providers Date of admission: 08/30/23 16:37 Expected date of discharge: 09/05/23 Attending physician: Chidi Mckeon MD Consults: 08/31/23 09:27 Consult Physician Routine Consulting Provider: Anatoliy Solorzano Consult Reason/Comments: frustration, depression Do you want consulting provider notified?: Yes 09/02/23 15:23 Consult Physician Routine Consulting Provider: Azra Nguyen Consult Reason/Comments: VRE UTI Do you want consulting provider notified?: Yes Primary care physician: John Aquino Hospital Course: Discharge Diagnosis: Complicated UTI with Enterococcus faecium VRE Generalized weakness and fatigue, likely secondary to above. Parkinson's disease Recurrent episodes of Hypoglycemia Insulin-dependent diabetes History of seizure disorder Hospital Course: Patient is a very pleasant 72-year-old male with a past medical history of insulin-dependent diabetes mellitus, seizure disorder, and Parkinson's disease. He was admitted to the hospital on 08/31/23 secondary to presenting with a chief complaint of generalized weakness, excess sleepiness, and changes in mentation with outbursts of anger and frustration refusing to take medications or eat at home. Upon arrival to our facility patient underwent full evaluation. Vital signs upon arrival blood pressure 185/73, heart rate 40, respiratory rate 16, temp 98.0F, respiratory rate 16, SpO2 100% on room air. EKG was completed showing normal sinus rhythm at 76 bpm with frequent PVCs in bigeminy pattern upon personal review and interpretation. Labs were completed and reviewed. CBC and coagulation profile were unremarkable. BMP revealing mild prerenal azotemia with BUN of 31 otherwise normal findings. Blood glucose was 151. Liver profile unremarkable. Magnesium normal findings at 2.3. Troponin negative at less than 0.012. TSH 1.620. Urine drug screen positive for tricyclic antidepressants. Serum alcohol was negative. Urinalysis was positive for blood and infection. Patient was initially admitted under a different hospitalist group and on 11/02/22 patient's admission transferred to our services per family request for continued care and management. Echocardiogram completed showing normal EF of 55-60% with mild mitral and tricuspid regurgitation and mild pulmonary hypertension. On the morning of 09/02/23 patient's urine culture showing positive for multi drug-resistant Enterococcus faecium VRE. Rocephin discontinued and patient placed on daptomycin 450 mg/daily IVP (daptomycin 6mg/kg/dose). Patient was evaluated by infectious disease recommending a 3 day course of daptomycin. He is also having episodes of hypoglycemia in the morning, home Levemir dose decreased. Patient currently stable, discharge home with close follow-up with PCP. Patient seen and examined at bedside. Vital signs reviewed and stable. General: Nontoxic, no distress and appears stated age. Derm: Skin warm and dry, normal coloration for ethnicity. Head: Atraumatic, normocephalic and symmetric. Eyes: EOMs intact, no lid lag, and anicteric sclera Mouth: no lip lesions, mucus membranes moist Cardiovascular: regular rate and rhythm with normal S1S2, no murmur, positive posterior tibial pulses bilaterally, and cap refill < 2 seconds. Lungs: Respirations even, regular, and unlabored on room air. Abdominal: soft, nontender to palpation, no guarding, no appreciable organom egaly Ext: ROM intact. No gross muscle atrophy, no edema, no contractures Neuro: Speech clear but slow, face symmetrical and CN II-XII grossly intact with no noted focal neuro deficits, resting tremor Psych: Alert and oriented to person, place, time, and situation. Appropriate and pleasant affect. A total of 33 minutes of time were spent preparing this complex discharge summary. Patient was discharged on 09/05/23 at 10:41. Patient Condition at Discharge: Stable Plan - Discharge Summary Discharge Rx Participant: Yes New Discharge Prescriptions: New Mirtazapine [Remeron] 15 mg PO HS #90 tab Continue lamoTRIgine 200 mg PO BID@0800,1700 Multivitamin [Men's Multi-Vitamin] 1 tab PO DAILY Aspirin EC [Ecotrin] 325 mg PO DAILY Carbidopa-Levodopa 25-100 mg [Sinemet 25-100 mg] 1 tab PO TID@0800,1200,1700 Donepezil [Aricept] 5 mg PO HS tab Memantine [Namenda] 5 mg PO BID tab Timolol 0.5% Ophth Soln [Timoptic 0.5% Ophth Soln] 1 drop BOTH EYES DAILY Pravastatin Sodium [Pravachol] 40 mg PO HS Calcium Carbonate [Calcium] 600 mg PO DAILY@1200 Tamsulosin [Flomax] 0.4 mg PO BID cap QUEtiapine [SEROquel] 25 mg PO BID tab INSULIN ASPART (NovoLOG) [NovoLOG (formulary)] See Protocol SQ AC-TID Changed Insulin Glargine [Lantus Vial] 10 units SQ HS #0 Discontinued Mirtazapine 7.5 mg PO HS Discharge Medication List Multivitamin [Men's Multi-Vitamin] 1 tab PO DAILY 03/28/14 [History] lamoTRIgine 200 mg PO BID@0800,1700 03/28/14 [History] Aspirin EC [Ecotrin] 325 mg PO DAILY 04/09/16 [History] Calcium Carbonate [Calcium] 600 mg PO DAILY@1200 02/20/21 [History] Carbidopa-Levodopa 25-100 mg [Sinemet 25-100 mg] 1 tab PO TID@0800,1200,1700 08/09/22 [History] Tamsulosin [Flomax] 0.4 mg PO BID cap 08/19/22 [Rx] Donepezil [Aricept] 5 mg PO HS tab 08/27/22 [Rx] Memantine [Namenda] 5 mg PO BID tab 08/27/22 [Rx] QUEtiapine [SEROquel] 25 mg PO BID tab 08/27/22 [Rx] INSULIN ASPART (NovoLOG) [NovoLOG (formulary)] See Protocol SQ AC-TID 08/30/23 [History] Pravastatin Sodium [Pravachol] 40 mg PO HS 08/30/23 [History] Timolol 0.5% Ophth Soln [Timoptic 0.5% Ophth Soln] 1 drop BOTH EYES DAILY 08/30/23 [History] Insulin Glargine [Lantus Vial] 10 units SQ HS #0 09/05/23 [Rx] Mirtazapine [Remeron] 15 mg PO HS #90 tab 09/05/23 [Rx] Follow up Appointment(s)/Referral(s): John Aquion MD [Primary Care Provider] - 1-2 days (Call and make karissa. ) Patient Instructions/Handouts: Urinary Tract Infection in Men (DC), Hypoglycemia in a Person with Diabetes (DC) Activity/Diet/Wound Care/Special Instructions: Please see your PCP. Discharge/Stand Alone Forms: Who Do I Call?, Adult Foster Half-Way List, Assisted Living Facilities, Community Resources, Help In The Home, Outpatient Counseling, Personal [employer] Discharge Disposition: HOME WITH HOME HEALTH SERVICES
[2023-09-05] MEDS: CALCIUM CARBONATE 500 MG CHEWABLE PO SCH (11:10)
[2023-09-05 11:26] LABS: Glucose,Whole Blood 232 mg/dL (70-110)
[2023-09-05 11:44] VITALS: BP 122/55; PULSE 75; TEMP 98.2
--- NOTE | 2023-09-05 14:20 | P.PN ---
Subjective Progress Note Date: 09/04/23 Principal diagnosis: Reason for follow-up is the VRE urinary tract infection Patient is a 72-year-old male with a past medical history significant for diabetes mellitus hypertension seizure disorder patient have history of recurrent UTI presenting to the hospital for mental status changes and urinary symptoms patient has been diagnosed with a UTI and urine cultures came back positive the VRE On today's evaluation that is 09/04/2023 the patient continues to be afebrile, the patient is breathing comfortably on room air without need for oxygen, the patient denies having any chest pain or cough and no sputum production, patient denies nausea vomiting or any diarrhea, and no abdominal pain Patient did have white or cough 4.9, creatinine 0.80 as of 09/03/2023 Objective - Vital Signs Vital signs: Vital Signs Temp 98.3 F 09/04/23 08:00 Pulse 74 09/04/23 08:00 Resp 18 09/04/23 08:00 BP 136/73 09/04/23 08:00 Pulse Ox 97 09/04/23 08:00 FiO2 Intake & Output 09/03/23 09/04/23 09/04/23 18:59 06:59 18:59 Intake Total 610 240 Balance 610 240 Intake: Intake, IV Titration 50 Amount DAPTOmycin 450 mg In 50 Sodium Chloride 0.9% 50 ml @ 100 mls/hr IVPB Q24HR@1600 [facility] Rx#: [id number] Oral 560 240 Other: Voiding Method Toilet Toilet # Voids 1 2 1 # Bowel Movements 1 - Exam GENERAL DESCRIPTION: An elderly male lying in bed in no distress RESPIRATORY SYSTEM: Unlabored breathing , clear to auscultation anteriorly HEART: S1 S2 regular rate and rhythm , ABDOMEN: Soft , no tenderness EXTREMITIES: No edema feet - Labs CBC & Chem 7: 09/03/23 09:25 09/03/23 09:25 Labs: Abnormal Lab Results - Last 24 Hours (Table) 09/03/23 09/03/23 09/04/23 Range/Units 16:27 20:30 06:07 POC Glucose (mg/dL) 227 H 245 H 57 L (70-110) mg/dL 09/04/23 09/04/23 Range/Units 06:29 06:37 POC Glucose (mg/dL) 55 L 136 H (70-110) mg/dL Microbiology - Last 24 Hours (Table) 08/31/23 16:01 Urine Culture - Final Urine,Clean Catch Enterococcus faecium VRE Assessment and Plan (1) VRE (vancomycin resistant enterococcus) culture positive Status: Acute Code(s): Z22.39 - CARRIER OF OTHER SPECIFIED BACTERIAL DISEASES SNOMED Code(s): 528251427 (2) UTI (urinary tract infection) Status: Acute Code(s): N39.0 - URINARY TRACT INFECTION, SITE NOT SPECIFIED SNOMED Code(s): 58611655 Plan: 1patient presented to hospital with mental status changes weakness confusion which is likely multifactorial patient did have history of recurrent UTIs did have urinary symptoms and a positive UA concerning for symptomatic UTI more likely behaving as a cystitis rather than a deep infection 2-ultrasound of the kidney bladder area did not show any obstructive uropathy nonobstructing stone in the left kidney 3-patient seemed to showing clinical improvement and will continue the patient on daptomycin and a 3-day course should be enough for a possible cystitis Dictation was produced using [employer] dictation software. please excuse any grammatical, word or spelling errors. Time with Patient: Less than 30
--- NOTE | 2023-09-05 14:21 | P.PN ---
Subjective Progress Note Date: 09/05/23 Principal diagnosis: Reason for follow-up is the VRE urinary tract infection Patient is a 72-year-old male with a past medical history significant for diabetes mellitus hypertension seizure disorder patient have history of recurrent UTI presenting to the hospital for mental status changes and urinary symptoms patient has been diagnosed with a UTI and urine cultures came back positive the VRE On today's evaluation that is 09/05/2023, the patient denies any fever or any chills, the patient is breathing comfortably on room air, patient denies chest pain shortness of breath, or cough, patient denies Abdominal pain and denies any nausea/vomiting or diarrhea , no urinary symptoms Patient did have white or cough 4.9, creatinine 0.80 as of 09/03/2023 no new labs were done today Objective - Vital Signs Vital signs: Vital Signs Temp 98.2 F 09/05/23 11:14 Pulse 75 09/05/23 11:14 Resp 18 09/05/23 11:14 BP 122/55 09/05/23 11:14 Pulse Ox 98 09/05/23 11:14 FiO2 Intake & Output 09/04/23 09/05/23 09/05/23 18:59 06:59 18:59 Intake Total 705 Balance 705 Weight 72.575 kg Intake: Oral 705 Other: Voiding Method Toilet Toilet Toilet # Voids 2 2 1 # Bowel Movements 1 - Exam GENERAL DESCRIPTION: An elderly male lying in bed in no distress RESPIRATORY SYSTEM: Unlabored breathing , clear to auscultation anteriorly HEART: S1 S2 regular rate and rhythm , ABDOMEN: Soft , no tenderness EXTREMITIES: No edema feet - Labs CBC & Chem 7: 09/03/23 09:25 09/03/23 09:25 Labs: Abnormal Lab Results - Last 24 Hours (Table) 09/04/23 09/04/23 09/05/23 Range/Units 16:57 20:01 06:07 POC Glucose (mg/dL) 254 H 204 H 167 H (70-110) mg/dL 09/05/23 Range/Units 11:22 POC Glucose (mg/dL) 232 H (70-110) mg/dL Microbiology - Last 24 Hours (Table) 08/30/23 16:30 Blood Culture - Final Blood 08/30/23 16:45 Blood Culture - Final Blood Assessment and Plan (1) VRE (vancomycin resistant enterococcus) culture positive Status: Acute Code(s): Z22.39 - CARRIER OF OTHER SPECIFIED BACTERIAL DISEASES SNOMED Code(s): 126891957 (2) UTI (urinary tract infection) Status: Acute Code(s): N39.0 - URINARY TRACT INFECTION, SITE NOT SPECIFIED SNOMED Code(s): 31603004 Plan: 1patient presented to hospital with mental status changes weakness confusion which is likely multifactorial patient did have history of recurrent UTIs did have urinary symptoms and a positive UA concerning for symptomatic UTI more likely behaving as a cystitis rather than a deep infection 2-ultrasound of the kidney bladder area did not show any obstructive uropathy nonobstructing stone in the left kidney 3-patient has shown clinical improvement and received adequate antibiotics for underlying cystitis and there is no need for daptomycin on discharge Dictation was produced using [employer] dictation software. please excuse any grammatical, word or spelling errors. Time with Patient: Less than 30
== END 2023-09-05 14:11 | disposition home health service (06) | DRG 690 ==
LOC: EC 12:46 → 3SCARD 16:37
PROVIDERS: ADMIT Student in an Organized Health Care Education/Training Program; ATTEND Student in an Organized Health Care Education/Training Program
DX: N39.0 Urinary tract infection, site not specified (principal); Z16.22 Resistance to vancomycin related antibiotics; E87.1 Hypo-osmolality and hyponatremia; F02.83 Dementia in other diseases classified elsewhere, unspecified severity, with mood disturbance; Z16.11 Resistance to penicillins; Z16.21 Resistance to vancomycin; B95.2 Enterococcus as the cause of diseases classified elsewhere; E10.649 Type 1 diabetes mellitus with hypoglycemia without coma; E78.5 Hyperlipidemia, unspecified; R00.8 Other abnormalities of heart beat; Z87.891 Personal history of nicotine dependence; I10 Essential (primary) hypertension; I27.20 Pulmonary hypertension, unspecified; G20.A1 Parkinson's disease without dyskinesia, without mention of fluctuations; H43.399 Other vitreous opacities, unspecified eye; G40.909 Epilepsy, unspecified, not intractable, without status epilepticus; I49.3 Ventricular premature depolarization; Z79.4 Long term (current) use of insulin; Z79.82 Long term (current) use of aspirin; Z79.899 Other long term (current) drug therapy; Z83.3 Family history of diabetes mellitus; Z87.440 Personal history of urinary (tract) infections; Z88.0 Allergy status to penicillin; Z28.310 Unvaccinated for COVID-19; Z28.21 Immunization not carried out because of patient refusal; Z96.652 Presence of left artificial knee joint; I08.1 Rheumatic disorders of both mitral and tricuspid valves
CPT/HCPCS: 36415; 71046; 76770; 80053; 80306; 80320; 81001; 83036; 83605; 83735; 84439; 84443; 84481; 84484; 85025; 85027; 85610; 85730; 87040; 87077; 87086; 87186; 93005; 93306; 96361; 96365; 99285

== ENCOUNTER 2023-10-16 18:13 | Observation (INO) | payer MEDICARE ==
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
[2023-10-16 19:42] LABS: Basophils # (A) 0.1 k/uL (0-0.2); Basophils % (A) 1 %; Eosinophils # (A) 0.3 k/uL (0-0.7); Eosinophils % (A) 5 %; HCT 39.6 % (39.0-53.0); HGB 13.2 gm/dL (13.0-17.5); Lymphocytes # (A) 1.7 k/uL (1.0-4.8); Lymphocytes % (A) 27 %; MCH 30.4 pg (25.0-35.0); MCHC 33.2 g/dL (31.0-37.0); MCV 91.3 fL (80.0-100.0); Mean Platelet Volume 8.4; Monocytes # (A) 0.3 k/uL (0-1.0); Monocytes % (A) 5 %; Neutrophils # (A) 3.6 k/uL (1.3-7.7); Neutrophils % (A) 60 %; Platelet Count 186 k/uL (150-450); RBC 4.34 m/uL (4.30-5.90); RDW 13.3 % (11.5-15.5); WBC 6.1 k/uL (3.8-10.6)
[2023-10-16 19:59] LABS: ALT 14 U/L (4-49); AST 30 U/L (17-59); African American GFR (CKD) >90 (>60 ml/min/1.73 sqM); Albumin 4.6 g/dL (3.5-5.0); Alcohol <10 mg/dL; Alkaline Phosphatase 85 U/L (38-126); Anion Gap 8 mmol/L; Blood Urea Nitrogen 22 mg/dL (9-20); Calcium 10.3 mg/dL (8.4-10.2); Carbon Dioxide 30 mmol/L (22-30); Chloride 102 mmol/L (98-107); Glucose 189 mg/dL (74-99); Non-African American GFR(CKD) 81 (>60 ml/min/1.73 sqM); Potassium 5.3 mmol/L (3.5-5.1); Sodium 140 mmol/L (137-145); Total Bilirubin 0.7 mg/dL (0.2-1.3); Total Protein 7.4 g/dL (6.3-8.2)
[2023-10-16] MEDS ORDERED: NALOXONE 0.4 MG/ML 1 ML VIAL IV PRN (20:10)
[2023-10-16] MEDS ORDERED: ACETAMINOPHEN TAB 325 MG TAB PO PRN (20:10)
[2023-10-16] MEDS: SODIUM CHLORIDE 0.9% 1,000 ML IV SCH (20:42)
[2023-10-16 20:59] LABS: Appearance,Urine Clear (Clear); Bilirubin,Urine Negative (Negative); Blood,Urine Large (Negative); Color,Urine Yellow; Glucose,Urine (UA) Negative (Negative); Hyaline Casts,Urine 1 /lpf (0-2); Ketones,Urine Trace (Negative); Leukocyte Esterase,Urine Trace (Negative); Mucus,Urine Rare /hpf; Nitrite,Urine Negative (Negative); Protein,Urine Trace (Negative); RBC,Urine >182 /hpf (0-5); Squamous Epithelial Cell,Urine 3 /hpf (0-4); Urobilinogen,Urine <2.0 mg/dL (<2.0); WBC,Urine 8 /hpf (0-5)
[2023-10-16 21:01] LABS: Amphetamine Screen,Urine Not Detected (NotDetected); Barbiturate Screen,Urine Not Detected (NotDetected); Benzodiazepines Screen,Urine Not Detected (NotDetected); Cocaine Screen,Urine Not Detected (NotDetected); Methadone Screen, Urine Not Detected (NotDetected); Opiate Screen,Urine Not Detected (NotDetected); Oxycodone Screen, Urine Not Detected (NotDetected); Phencyclidine Screen,Urine Not Detected (NotDetected); Tricyclic Antidepressant,Urine Detected (NotDetected); Urn Cannabinoid Scrn Not Detected (NotDetected)
[2023-10-16 21:02] LABS: Glucose,Whole Blood 160 mg/dL (70-110)
[2023-10-17 07:15] LABS: Glucose,Whole Blood 270 mg/dL (70-110)
[2023-10-17] MEDS ORDERED: NON FORMULARY DRUG (Aspirin Ec 325 MG Tablet.Dr) PO SCH (12:00)
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
[2023-10-17 12:16] LABS: Glucose,Whole Blood 309 mg/dL (70-110)
[2023-10-17] MEDS ORDERED: DEXTROSE 50% SYRINGE 50 ML IVP PRN ×2 (12:17)
--- NOTE | 2023-10-17 13:47 | CT ---
EXAMINATION TYPE: CT abdomen pelvis w con DATE OF EXAM: 10/17/2023 COMPARISON: 07/26/2022 INDICATION: Right groin pain and hematuria DLP: 09/24/2002 mGycm, Automated exposure control for dose reduction was used. CONTRAST: 100 mL of Isovue 300. Study performed without Oral Contrast TECHNIQUE: Axial images were obtained from above the diaphragm to the pubic rami in the axial plane a t 5 mm thick sections. Reconstructed images are reviewed on the computer in the coronal plane. FINDINGS: Limited CT sections are obtained the lung bases. The lung bases are clear. CT ABDOMEN: Liver: There is mild fatty infiltration of the liver. Spleen: Normal Pancreas: Normal Adrenal glands: The adrenal glands are normal. Gallbladder: There is a fluid contrast level within the gallbladder. Sludge and stones could be consi dered. Kidneys: No masses are evident. No hydronephrosis is present. Small left cortical renal cyst is pre sent better visualized on the delayed images. No renal stones are evident. Delayed images through th e kidneys remain unremarkable. Aorta: Normal Inferior vena cava: Normal. CT PELVIS: There is a very large fecal bolus of the rectum. Correlate for fecal impaction. This displaces the ur inary bladder anteriorly. Appendix: Normal as visualized. Urinary bladder: Displaced urinary bladder appears normal. Genitourinary structures: Prostate is unremarkable as visualized. Osseous structures: No suspicious lytic or sclerotic lesions. IMPRESSION: 1. Large fecal bolus at the rectum. Correlate for fecal impaction.
[2023-10-17] MEDS: CALCIUM CARBONATE 500 MG CHEWABLE PO SCH (16:08)
[2023-10-17] MEDS: MEMANTINE 5 MG TAB PO SCH ×2 (16:09→20:35)
[2023-10-17] MEDS: QUEtiapine 25 MG TAB PO SCH ×2 (16:09→21:02)
[2023-10-17] MEDS: CARBIDOPA-LEVODOPA 25-100 MG 1 EACH TAB PO SCH ×2 (16:09→21:02)
[2023-10-17] MEDS: lamoTRIgine 100 MG TAB PO SCH ×2 (16:09→16:45)
[2023-10-17] MEDS: ASPIRIN 325 MG TAB PO SCH (16:09)
[2023-10-17 16:16] LABS: Glucose,Whole Blood 357 mg/dL (70-110)
[2023-10-17] MEDS: INSULIN ASPART (NovoLOG) 100 UNIT/ML VIAL SQ SCH ×3 (16:42→20:35)
[2023-10-17 17:24] LABS: Glucose,Whole Blood 306 mg/dL (70-110)
--- NOTE | 2023-10-17 18:40 | CT ---
EXAMINATION TYPE: CT brain wo con DATE OF EXAM: 10/17/2023 COMPARISON: 08/09/2022 INDICATION: increased confusion DLP: 1133.5 mGycm, Automated exposure control for dose reduction was used. CONTRAST: None CT of the brain is performed utilizing 3 mm thick sections through the posterior fossa and 3 mm thick sections through the remaining calvarium. Study is performed within 24 hours of arrival to the hosp [facility]. No abnormal hyperdensity is present to suggest an acute intracranial hemorrhage. No mass lesion is evident. No acute infarcts are evident. Ventricles and sulci are prominent for the patient age. Paranasal sinuses and mastoid air cells within the [id number] are clear. IMPRESSION: 1. Atrophy. 2. No acute intracranial process radiographically apparent. Follow-up MRI can be performed as clinica lly indicated.
[2023-10-17] MEDS: SODIUM CHLORIDE 0.9% 1,000 ML IV SCH ×2 (18:52→21:04)
[2023-10-17 20:00] LABS: Glucose,Whole Blood 240 mg/dL (70-110)
[2023-10-17] MEDS: INSULIN DETEMIR (LEVEMIR) 100 UNIT/ML SYR SQ SCH (20:35)
[2023-10-17] MEDS: DONEPEZIL 5 MG TAB PO SCH (20:35)
[2023-10-17] MEDS: TAMSULOSIN 0.4 MG CAP.ER.24H PO SCH (20:35)
[2023-10-17] MEDS: MIRTAZAPINE 15 MG TAB PO SCH (20:35)
[2023-10-17] MEDS: PRAVASTATIN SODIUM 40 MG TAB PO SCH (20:35)
[2023-10-17] MEDS: BRIMONIDINE TARTRATE 0.2% DROPS 5 ML BTL BOTH EYES SCH (21:02)
[2023-10-18 07:38] LABS: Glucose,Whole Blood 76 mg/dL (70-110)
[2023-10-18] MEDS: INSULIN ASPART (NovoLOG) 100 UNIT/ML VIAL SQ SCH ×4 (08:03→20:25)
[2023-10-18] MEDS: CARBIDOPA-LEVODOPA 25-100 MG 1 EACH TAB PO SCH ×2 (08:48→20:24)
[2023-10-18] MEDS: ASPIRIN 325 MG TAB PO SCH (08:48)
[2023-10-18] MEDS: BRIMONIDINE TARTRATE 0.2% DROPS 5 ML BTL BOTH EYES SCH ×2 (08:49→20:25)
[2023-10-18] MEDS: TAMSULOSIN 0.4 MG CAP.ER.24H PO SCH ×2 (08:49→20:24)
[2023-10-18] MEDS: QUEtiapine 25 MG TAB PO SCH ×2 (08:49→20:24)
[2023-10-18] MEDS: MEMANTINE 5 MG TAB PO SCH ×2 (08:49→20:25)
[2023-10-18] MEDS: lamoTRIgine 100 MG TAB PO SCH ×2 (08:49→17:40)
[2023-10-18] MEDS: MULTIVITAMINS, THERA 1 EACH TAB PO SCH (08:49)
[2023-10-18 09:28] LABS: Glucose,Whole Blood 76 mg/dL (70-110)
[2023-10-18] MEDS ORDERED: SODIUM CHLORIDE 0.9% 500 ML 500 ML IV ONE ×2 (10:41)
--- NOTE | 2023-10-18 10:44 | P.GSCN ---
History of Present Illness Consult date: 10/18/23 Reason for Consult: Fecal impaction History of present illness: 72-year-old male known to our service. Patient has history of dementia and Par kinson's. Patient came to the hospital with altered mental status. Patient was having some complaints of dysuria and constipation. Patient underwent fecal disimpaction a little over a year ago by myself. Large volume of stool was removed. CAT scan shows recurrent fecal impaction at this time. Review of Systems ROS unobtainable: due to mental status Past Medical History Past Medical History: Diabetes Mellitus, Eye Disorder, Hypertension, Seizure Disorder Additional Past Medical History / Comment(s): encephalopathy;VARICOSE VEINS,EYE FLOATERS,TREMORS,SEIZURES WITH LOW BLOOD SUGAR-LAST SEIZURE APPROX JUN 2015, parkinson History of Any Multi-Drug Resistant Organisms: VRE Year Discovered:: 08/31/23 MDRO Source:: Urine Past Surgical History: Orthopedic Surgery Additional Past Surgical History / Comment(s): cataracts bilateral. total left knee. left index finger thea placement Past Anesthesia/Blood Transfusion Reactions: No Reported Reaction Past Psychological History: No Psychological Hx Reported Smoking Status: Former smoker Past Alcohol Use History: None Reported Additional Past Alcohol Use History / Comment(s): QUIT SMOKING 1974,STARTED 1973 Past Drug Use History: None Reported - Past Family History Brother(s) Family Medical History: Diabetes Mellitus Sister(s) Family Medical History: Diabetes Mellitus Additional Family Medical History / Comment(s): MS Father Family Medical History: Cancer, Diabetes Mellitus Additional Family Medical History / Comment(s): COLON CA Medications and Allergies Home Medications Medication Instructions Recorded Confirmed Type Multivitamin [Men's Multi-Vitamin] 1 tab PO DAILY 03/28/14 10/16/23 History lamoTRIgine 200 mg PO BID@0800,1700 03/28/14 10/16/23 History Aspirin EC [Ecotrin] 325 mg PO DAILY 04/09/16 10/16/23 History Calcium Carbonate [Calcium] 600 mg PO DAILY@1200 02/20/21 10/16/23 History Carbidopa-Levodopa 25-100 mg 1 tab PO BID 08/09/22 10/16/23 History [Sinemet 25-100 mg] Tamsulosin [Flomax] 0.4 mg PO BID cap 08/19/22 10/16/23 Rx Donepezil [Aricept] 5 mg PO HS tab 08/27/22 10/16/23 Rx Memantine [Namenda] 5 mg PO BID tab 08/27/22 10/16/23 Rx QUEtiapine [SEROquel] 25 mg PO BID tab 08/27/22 10/16/23 Rx INSULIN ASPART (NovoLOG) [NovoLOG See Protocol SQ AC-TID 08/30/23 10/16/23 History (formulary)] Pravastatin Sodium [Pravachol] 40 mg PO HS 08/30/23 10/16/23 History Mirtazapine [Remeron] 15 mg PO HS #90 tab 09/05/23 10/16/23 Rx Brimonidine Tartrate [Alphagan P 1 drop BOTH EYES BID 10/16/23 10/16/23 History 0.2% Ophth Soln] Insulin Glargine [Lantus Vial] 10 - 22 units SQ HS 10/16/23 10/16/23 History Allergies Allergy/AdvReac Type Severity Reaction Status Date / Time Penicillins Allergy Rash/Hives Verified 08/30/23 14:51 peanut AdvReac Nausea & Verified 10/17/23 00:36 Vomiting & Diarrhea Surgical - Exam Vital Signs Temp Pulse Resp BP Pulse Ox 98.6 F 82 18 184/86 99 10/16/23 18:24 10/16/23 18:24 10/16/23 18:24 10/16/23 18:24 10/16/23 18:24 Physical exam: General: Well-developed, well-nourished HEENT: Normocephalic, sclerae nonicteric Abdomen: Mild lower abdominal tenderness, mild distention Extremities: No edema Neuro: Alert and oriented Results - Labs 10/16/23 19:37 10/16/23 19:37 Abnormal Lab Results - Last 24 Hours (Table) 10/17/23 10/17/23 10/17/23 Range/Units 12:12 16:14 17:18 POC Glucose (mg/dL) 309 H 357 H 306 H (70-110) mg/dL 10/17/23 Range/Units 19:59 POC Glucose (mg/dL) 240 H (70-110) mg/dL Assessment and Plan (1) Fecal impaction in rectum Narrative/Plan: 72-year-old male with recurrent fecal impaction. Will proceed with flexible sigmoidoscopy with manual disimpaction at this time. Current Visit: No Status: Acute Code(s): K56.41 - FECAL IMPACTION SNOMED Code(s): 4574204030
[2023-10-18 10:48] LABS: Glucose,Whole Blood 87 mg/dL (70-110)
[2023-10-18] MEDS ORDERED: PROPOFOL 10 MG/ML 20 ML VIAL IV ONE (10:51)
--- NOTE | 2023-10-18 11:07 | P.PCN ---
Date of Procedure: 10/18/23 Procedure(s) Performed: PREOPERATIVE DIAGNOSIS: Fecal impaction POSTOPERATIVE DIAGNOSIS: Same PROCEDURE: Flexible sigmoidoscopy with disimpaction ANESTHESIA: MAC SURGEON: Otilio Vaughan M.D. SPECIMENS: Sedation ENDOSCOPIC PROCEDURE: The patient was placed on the endoscopy table in the left decubitus position. The patient was disimpacted manually. I would estimate approximately 20 ounces of solid stool was evacuated. The flexible sigmoidoscope was advanced to the proximal rectum. I irrigated with water. No mucosal damage was noted. No mucosal abnormalities were noted. The patient was taken to the recovery room in stable condition per anesthesia guidelines. RECOMMENDATIONS: Resume diet. Gradually advance. May require enemas. Will reassess tomorrow.
[2023-10-18] MEDS ORDERED: SODIUM CHLORIDE 0.9% 1,000 ML IV ONE (11:15)
[2023-10-18 11:26] LABS: Glucose,Whole Blood 90 mg/dL (70-110)
[2023-10-18] MEDS ORDERED: QUEtiapine 25 MG TAB PO PRN (12:59)
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
[2023-10-18] MEDS: ENOXAPARIN 40 MG/0.4 ML SYRINGE SQ SCH (13:38)
[2023-10-18] MEDS: CALCIUM CARBONATE 500 MG CHEWABLE PO SCH (14:04)
[2023-10-18 14:23] LABS: Basophils % (A) 1 %; Eosinophils # (A) 0.2 k/uL (0-0.7); Eosinophils % (A) 4 %; HCT 37.4 % (39.0-53.0); HGB 12.4 gm/dL (13.0-17.5); Lymphocytes # (A) 1.5 k/uL (1.0-4.8); Lymphocytes % (A) 29 %; MCH 30.6 pg (25.0-35.0); MCV 92.6 fL (80.0-100.0); Mean Platelet Volume 8.9; Monocytes # (A) 0.2 k/uL (0-1.0); Monocytes % (A) 4 %; Neutrophils % (A) 59 %; Platelet Count 171 k/uL (150-450); RBC 4.04 m/uL (4.30-5.90); RDW 13.2 % (11.5-15.5)
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
[2023-10-18 17:32] LABS: Glucose,Whole Blood 179 mg/dL (70-110)
[2023-10-18] MEDS: SODIUM CHLORIDE 0.9% 1,000 ML IV SCH (17:41)
--- NOTE | 2023-10-18 19:13 | P.GSCN ---
History of Present Illness Consult date: 10/18/23 Reason for Consult: Gross hematuria History of present illness: This is a 72-year-old male with the urologist consulted for gross hematuria. He has been noticing intermittent gross hematuria since hospital admission. Denies any previous history of gross hematuria. He does have history of kidney stones in the past which he has passed spontaneously. Denies any previous intervention for his kidney stones. Underwent a CT abdomen pelvis that showed no abnormality within the kidney and the bladder. Of note there was significant stool burden within the rectum and he is subsequently underwent fecal impaction. He was having groin pain with dysuria which has resolved post fecal impaction Review of Systems ROS unobtainable: due to mental status Past Medical History Past Medical History: Diabetes Mellitus, Eye Disorder, Hypertension, Seizure Disorder Additional Past Medical History / Comment(s): encephalopathy;VARICOSE VEINS,EYE FLOATERS,TREMORS,SEIZURES WITH LOW BLOOD SUGAR-LAST SEIZURE APPROX JUN 2015, parkinson History of Any Multi-Drug Resistant Organisms: VRE Year Discovered:: 08/31/23 MDRO Source:: Urine Past Surgical History: Orthopedic Surgery Additional Past Surgical History / Comment(s): cataracts bilateral. total left knee. left index finger thea placement Past Anesthesia/Blood Transfusion Reactions: No Reported Reaction Past Psychological History: No Psychological Hx Reported Smoking Status: Former smoker Past Alcohol Use History: None Reported Additional Past Alcohol Use History / Comment(s): QUIT SMOKING 1974,STARTED 1973 Past Drug Use History: None Reported - Past Family History Brother(s) Family Medical History: Diabetes Mellitus Sister(s) Family Medical History: Diabetes Mellitus Additional Family Medical History / Comment(s): MS Father Family Medical History: Cancer, Diabetes Mellitus Additional Family Medical History / Comment(s): COLON CA Medications and Allergies Home Medications Medication Instructions Recorded Confirmed Type Multivitamin [Men's Multi-Vitamin] 1 tab PO DAILY 03/28/14 10/16/23 History lamoTRIgine 200 mg PO BID@0800,1700 03/28/14 10/16/23 History Aspirin EC [Ecotrin] 325 mg PO DAILY 04/09/16 10/16/23 History Calcium Carbonate [Calcium] 600 mg PO DAILY@1200 02/20/21 10/16/23 History Carbidopa-Levodopa 25-100 mg 1 tab PO BID 08/09/22 10/16/23 History [Sinemet 25-100 mg] Tamsulosin [Flomax] 0.4 mg PO BID cap 08/19/22 10/16/23 Rx Donepezil [Aricept] 5 mg PO HS tab 08/27/22 10/16/23 Rx Memantine [Namenda] 5 mg PO BID tab 08/27/22 10/16/23 Rx QUEtiapine [SEROquel] 25 mg PO BID tab 08/27/22 10/16/23 Rx INSULIN ASPART (NovoLOG) [NovoLOG See Protocol SQ AC-TID 08/30/23 10/16/23 History (formulary)] Pravastatin Sodium [Pravachol] 40 mg PO HS 08/30/23 10/16/23 History Mirtazapine [Remeron] 15 mg PO HS #90 tab 09/05/23 10/16/23 Rx Brimonidine Tartrate [Alphagan P 1 drop BOTH EYES BID 10/16/23 10/16/23 History 0.2% Ophth Soln] Insulin Glargine [Lantus Vial] 10 - 22 units SQ HS 10/16/23 10/16/23 History Allergies Allergy/AdvReac Type Severity Reaction Status Date / Time Penicillins Allergy Rash/Hives Verified 08/30/23 14:51 peanut AdvReac Nausea & Verified 10/17/23 00:36 Vomiting & Diarrhea Surgical - Exam Vital Signs Temp Pulse Resp BP Pulse Ox 98.6 F 82 18 184/86 99 10/16/23 18:24 10/16/23 18:24 10/16/23 18:24 10/16/23 18:24 10/16/23 18:24 - General no distress, no pain - ENT normal nares, normal mucosa - Respiratory normal expansion, normal respiratory effort - Abdomen Abdomen: soft, non tender, no distended Results - Labs 10/18/23 14:05 10/16/23 19:37 Abnormal Lab Results - Last 24 Hours (Table) 10/17/23 10/18/23 10/18/23 Range/Units 19:59 14:05 17:31 RBC 4.04 L (4.30-5.90) m/uL Hgb 12.4 L (13.0-17.5) gm/dL Hct 37.4 L (39.0-53.0) % POC Glucose (mg/dL) 240 H 179 H (70-110) mg/dL Assessment and Plan Assessment: 72-year-old male with history of gross hematuria. CT showed no upper tract pathology of note on CT there was evidence of bladder being displaced anteriorly secondary to fecal impaction. Most likely his pain is secondary to fecal impaction. pain and hematuria have completely resolved post fecal impaction. At this point recommend outpatient follow-up for repeat urinalysis, if there is evidence of persistent gross hematuria at that point he will require cystoscopy
[2023-10-18 19:50] LABS: Glucose,Whole Blood 204 mg/dL (70-110)
[2023-10-18] MEDS: PRAVASTATIN SODIUM 40 MG TAB PO SCH (20:25)
[2023-10-18] MEDS: MIRTAZAPINE 15 MG TAB PO SCH (20:25)
[2023-10-18] MEDS: INSULIN DETEMIR (LEVEMIR) 100 UNIT/ML SYR SQ SCH (20:25)
[2023-10-18] MEDS: DONEPEZIL 5 MG TAB PO SCH (20:25)
[2023-10-18] MEDS: LACTULOSE 20 GM/30 ML CUP PO SCH (20:25)
[2023-10-18] MEDS: MELATONIN 1 MG TAB PO SCH (20:25)
[2023-10-19] MEDS: SODIUM CHLORIDE 0.9% 1,000 ML IV SCH (02:05)
[2023-10-19 07:01] LABS: Glucose,Whole Blood 136 mg/dL (70-110)
[2023-10-19] MEDS: INSULIN ASPART (NovoLOG) 100 UNIT/ML VIAL SQ SCH ×4 (07:50→20:40)
[2023-10-19] MEDS: lamoTRIgine 100 MG TAB PO SCH ×2 (09:46→17:48)
[2023-10-19] MEDS: CARBIDOPA-LEVODOPA 25-100 MG 1 EACH TAB PO SCH ×2 (09:46→20:38)
[2023-10-19] MEDS: QUEtiapine 25 MG TAB PO SCH ×2 (09:46→20:39)
[2023-10-19] MEDS ORDERED: PROCHLORPERAZINE INJ 10 MG/2 ML VIAL IVP PRN (09:53)
[2023-10-19 11:21] LABS: HCT 35.4 % (39.0-53.0); HGB 11.7 gm/dL (13.0-17.5); MCH 30.2 pg (25.0-35.0); MCHC 33.2 g/dL (31.0-37.0); Mean Platelet Volume 10.2; Platelet Count 149 k/uL (150-450); RBC 3.89 m/uL (4.30-5.90); RDW 13.2 % (11.5-15.5); WBC 4.4 k/uL (3.8-10.6)
[2023-10-19] MEDS: CALCIUM CARBONATE 500 MG CHEWABLE PO SCH (11:37)
[2023-10-19] MEDS: TAMSULOSIN 0.4 MG CAP.ER.24H PO SCH ×2 (11:38→20:38)
[2023-10-19] MEDS: MEMANTINE 5 MG TAB PO SCH ×2 (11:38→20:39)
[2023-10-19] MEDS: ASPIRIN 325 MG TAB PO SCH (11:38)
[2023-10-19] MEDS: MULTIVITAMINS, THERA 1 EACH TAB PO SCH (11:38)
[2023-10-19] MEDS: ENOXAPARIN 40 MG/0.4 ML SYRINGE SQ SCH (11:39)
[2023-10-19] MEDS: BRIMONIDINE TARTRATE 0.2% DROPS 5 ML BTL BOTH EYES SCH ×2 (11:39→20:39)
[2023-10-19] MEDS: LACTULOSE 20 GM/30 ML CUP PO SCH ×2 (11:39→20:41)
[2023-10-19 11:45] LABS: ALT 12 U/L (4-49); AST 22 U/L (17-59); Albumin 3.4 g/dL (3.5-5.0); Albumin/Globulin Ratio 1.4; Alkaline Phosphatase 68 U/L (38-126); Anion Gap 3 mmol/L; Blood Urea Nitrogen 18 mg/dL (9-20); Calcium 8.6 mg/dL (8.4-10.2); Carbon Dioxide 29 mmol/L (22-30); Chloride 107 mmol/L (98-107); Globulin 2.4 g/dL; Glucose 191 mg/dL (74-99); Potassium 4.2 mmol/L (3.5-5.1); Sodium 139 mmol/L (137-145); Total Bilirubin 0.5 mg/dL (0.2-1.3); Total Protein 5.8 g/dL (6.3-8.2)
[2023-10-19 11:57] LABS: Glucose,Whole Blood 200 mg/dL (70-110)
[2023-10-19 12:01] LABS: African American GFR (CKD) >90 (>60 ml/min/1.73 sqM); Non-African American GFR(CKD) 88 (>60 ml/min/1.73 sqM)
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
[2023-10-19 17:08] LABS: Glucose,Whole Blood 291 mg/dL (70-110)
[2023-10-19 19:43] LABS: Glucose,Whole Blood 241 mg/dL (70-110)
[2023-10-19] MEDS: MIRTAZAPINE 15 MG TAB PO SCH (20:39)
[2023-10-19] MEDS: DONEPEZIL 5 MG TAB PO SCH (20:39)
[2023-10-19] MEDS: MELATONIN 1 MG TAB PO SCH (20:39)
[2023-10-19] MEDS: INSULIN DETEMIR (LEVEMIR) 100 UNIT/ML SYR SQ SCH (20:39)
[2023-10-19] MEDS: PRAVASTATIN SODIUM 40 MG TAB PO SCH (20:39)
[2023-10-20 07:09] LABS: Glucose,Whole Blood 83 mg/dL (70-110)
[2023-10-20] MEDS: INSULIN ASPART (NovoLOG) 100 UNIT/ML VIAL SQ SCH ×4 (07:19→20:13)
[2023-10-20] MEDS: ENOXAPARIN 40 MG/0.4 ML SYRINGE SQ SCH (09:39)
[2023-10-20] MEDS: BRIMONIDINE TARTRATE 0.2% DROPS 5 ML BTL BOTH EYES SCH ×2 (09:40→20:14)
[2023-10-20] MEDS: MEMANTINE 5 MG TAB PO SCH ×2 (09:40→20:13)
[2023-10-20] MEDS: ASPIRIN 325 MG TAB PO SCH (09:40)
[2023-10-20] MEDS: QUEtiapine 25 MG TAB PO SCH ×2 (09:40→20:13)
[2023-10-20] MEDS: CARBIDOPA-LEVODOPA 25-100 MG 1 EACH TAB PO SCH ×2 (09:40→20:13)
[2023-10-20] MEDS: LACTULOSE 20 GM/30 ML CUP PO SCH ×2 (09:40→20:14)
[2023-10-20] MEDS: lamoTRIgine 100 MG TAB PO SCH ×2 (09:40→17:48)
[2023-10-20] MEDS: TAMSULOSIN 0.4 MG CAP.ER.24H PO SCH ×2 (09:40→20:13)
[2023-10-20] MEDS: MULTIVITAMINS, THERA 1 EACH TAB PO SCH (09:40)
[2023-10-20 11:53] LABS: Glucose,Whole Blood 132 mg/dL (70-110)
[2023-10-20] MEDS: CALCIUM CARBONATE 500 MG CHEWABLE PO SCH (13:16)
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
[2023-10-20 17:15] LABS: Glucose,Whole Blood 291 mg/dL (70-110)
[2023-10-20 20:02] LABS: Glucose,Whole Blood 285 mg/dL (70-110)
[2023-10-20] MEDS: DONEPEZIL 5 MG TAB PO SCH (20:13)
[2023-10-20] MEDS: INSULIN DETEMIR (LEVEMIR) 100 UNIT/ML SYR SQ SCH (20:13)
[2023-10-20] MEDS: MIRTAZAPINE 15 MG TAB PO SCH (20:13)
[2023-10-20] MEDS: PRAVASTATIN SODIUM 40 MG TAB PO SCH (20:13)
[2023-10-20] MEDS: MELATONIN 1 MG TAB PO SCH (20:14)
[2023-10-21 07:24] LABS: Glucose,Whole Blood 114 mg/dL (70-110)
[2023-10-21] MEDS: INSULIN ASPART (NovoLOG) 100 UNIT/ML VIAL SQ SCH ×2 (07:31→13:06)
[2023-10-21] MEDS: ENOXAPARIN 40 MG/0.4 ML SYRINGE SQ SCH (07:32)
[2023-10-21] MEDS: MEMANTINE 5 MG TAB PO SCH (07:33)
[2023-10-21] MEDS: lamoTRIgine 100 MG TAB PO SCH (07:33)
[2023-10-21] MEDS: MULTIVITAMINS, THERA 1 EACH TAB PO SCH (07:33)
[2023-10-21] MEDS: QUEtiapine 25 MG TAB PO SCH (07:33)
[2023-10-21] MEDS: CARBIDOPA-LEVODOPA 25-100 MG 1 EACH TAB PO SCH (07:34)
[2023-10-21] MEDS: LACTULOSE 20 GM/30 ML CUP PO SCH (07:34)
[2023-10-21] MEDS: BRIMONIDINE TARTRATE 0.2% DROPS 5 ML BTL BOTH EYES SCH (07:34)
[2023-10-21] MEDS: TAMSULOSIN 0.4 MG CAP.ER.24H PO SCH (07:34)
[2023-10-21] MEDS: ASPIRIN 325 MG TAB PO SCH (07:34)
[2023-10-21 08:42] VITALS: RESP 18
[2023-10-21 11:54] LABS: Glucose,Whole Blood 302 mg/dL (70-110)
[2023-10-21] MEDS: CALCIUM CARBONATE 500 MG CHEWABLE PO SCH (12:46)
[2023-10-21 13:24] VITALS: BP 151/63; PULSE 85; TEMP 98.6
[2023-10-21 14:20] VITALS: BMI 24.4
--- NOTE | 2023-10-21 14:25 | P.DS ---
Providers Date of admission: 10/16/23 20:10 Expected date of discharge: 10/21/23 Attending physician: Chidi Mckeon MD Consults: 10/17/23 12:20 Consult Physician Routine Consulting Provider: Emery Sandoval Consult Reason/Comments: hematuria, pain in right groin & w/ urination. Hx of kidney stones Do you want consulting provider notified?: Yes 10/17/23 12:26 Consult Physician Urgent Consulting Provider: Anatoliy Solorznao Consult Reason/Comments: capacity evaluation Do you want consulting provider notified?: Yes Primary care physician: John Man [facility] Course: Discharge Diagnosis: Aggressive and angry outbursts with reports of aggressive behaviors and altercation at home. Patient evaluated by psychiatrist recommending Seroquel 25 mg daily as needed for agitation/aggression. Initial plan was for discharge to long-term care facility, patient's has changed her mind and decided to take the patient back home with her at this time. Medically, patient is stable at this time and has shown no further episodes of aggressive behaviors or angry outburst since initial day of hospitalization. Parkinson's dementia. Patient to continue carbidopa levodopa 25/100 mg tablets twice daily, Aricept 5 mg nightly, Lamictal 200 mg twice daily, Namenda 5 mg twice daily, Remeron 15 mg nightly, and Seroquel 25 mg twice daily. Hematuria with right groin pain, resolved. Resolved after treatment of fecal impaction. Urinalysis was positive for blood, protein, ketones, and greater than [address] abdomen and pelvis revealed large fecal impaction displacing urinary bladder anteriorly. Hematuria and right groin pain resolved status posttreatment of fecal impaction. Urology evaluated secondary to hematuria, hematuria is believed to be resulting from displaced urinary bladder. Urologist recommending patient follow-up outpatient after discharge for repeat urinalysis and if continued hematuria will plan for scheduling of outpatient cystoscopy. Fecal impaction resulting in displaced urinary bladder anteriorly, status post sigmoidoscopy with disimpaction. CT abdomen and pelvis revealed large fecal impaction displacing urinary bladder anteriorly. General surgery evaluated and took patient for flexible sigmoidoscopy with disimpaction. Patient discharged home on MiraLAX 17 g daily and lactulose 30 g twice daily as needed for constipation. History of kidney stones. Hyperkalemia, resolved. Hypercalcemia, resolved. Insulin-dependent diabetes mellitus with hyperglycemia. Patient to continue home insulin regimen. Hospital Course: Patient is a very pleasant 72-year-old male with a past medical history of insulin-dependent diabetes mellitus, seizure disorder, and Parkinson's dementia. He presented to the emergency department via EMS on 10/16/2023 with a chief complaint of aggressive behaviors and concerns for confusion. Per ED documentation patient reportedly had an altercation/argument with his at home and police and EMS were called to the home and his stated that she can no longer care for him due to his increased aggressive behaviors and agitation. Patient underwent full evaluation in the emergency department. Vital signs upon arrival show blood pressure to be 184/86, heart rate 82, respiratory rate 18, temp 98.6 F, and SpO2 of 99% on room air. Patient reportedly denied having any complaints at time of admission and was alert and oriented answering all questions appropriately. Patient did report pain in his right groin, hematuria and a cutting sensation with urination. He denied having any burning sensation with urination, urinary frequency, or urgency. He also denies having any testicular swelling or pain. Per nursing staff, patient had recurrent episodes of aggressive/angry outbursts and demanding to leave AMA. Patient reported he is going to walk out of the hospital and into the cold. Patient did not have a coat or proper clothing to go out into cold weather. He stated he does not have a place to go but does not care. Patient was alert and able to answer questions regarding person, time, place, and situation. However there are concerns regarding his capacity to make judgments and decisions on his care. CT head completed secondary to changes in behavior and this revealed atrophy but was negative for acute intracranial process. Secondary to patient's reports of hematuria and right groin pain, CT abdomen and pelvis ordered and upon review of this revealed a large fecal impaction displacing urinary bladder anteriorly. Urinalysis was positive for blood, protein, ketones, and greater than [address] abdomen and pelvis revealed large fecal impaction displacing urinary bladder anteriorly. Hematuria and right groin pain resolved status posttreatment of fecal impaction. Urology evaluated secondary to hematuria, hematuria is believed to be resulting from displaced urinary bladder. Urologist evaluated recommending patient follow-up outpatient after discharge for repeat urinalysis and if continued hematuria will plan for scheduling of outpatient cystoscopy. Consult was placed to general surgery for evaluation as patient will likely need fecal disimpaction. Patient was evaluated by general surgery. He was taken for flexible sigmoidoscopy with disimpaction. Patient was evaluated by psychiatry and per psychiatrist patient does not have decision-making capacity at this time. Psychiatrist recommending Seroquel 25 mg daily as needed for agitation/aggression. Initial plan was for discharge to long-term care facility and arrangements were being made by block and case maker and patient's . Patient's .has changed her mind and decided to take her back home with her at this time. Medically, patient is stable at this time and has shown no further episodes of aggressive behaviors or angry outburst since initial day of hospitalization. Prescriptions were sent for MiraLAX 17 g daily, Seroquel 25 mg daily as needed for acute psychosis or severe agitation, and lactulose 30 g twice daily as needed for constipation. Patient will need to follow-up outpatient with PCP in 1 to 2 days and with urology in 2 weeks. Medically, patient is stable for discharge home with his at this time. Physical exam: Vital signs reviewed and stable. General: Nontoxic, no distress and appears stated age. Derm: Skin warm and dry, normal coloration for ethnicity. Head: Atraumatic, normocephalic and symmetric. Eyes: EOMs intact, no lid lag, and anicteric sclera Mouth: no lip lesions, mucus membranes moist Cardiovascular: regular rate and rhythm with normal S1S2, no murmur, positive posterior tibial pulses bilaterally, and cap refill < 2 seconds. Lungs: Respirations even, regular, and unlabored on room air. Lungs CTA bilaterally, no rhonchi, no rales, no wheezing, and no accessory muscle usage. Abdominal: soft, nontender to palpation, no guarding, no appreciable organomegaly Ext: ROM intact. No gross muscle atrophy, no edema, no contractures Neuro: Speech stuttered and slow to respond, face symmetrical and Parkinsonian tremors noted in upper extremities and face. Psych: Alert and oriented to person, place, time, and situation. Patient currently calm and cooperative. A total of 39 minutes of time were spent preparing this complex discharge summary. Pt was discharged on 10/21/2023 at 1:48 PM. Patient was seen independently by Nurse Practitioner. This document was prepared using [employer] dictation software. Please allow for errors in public health staff nurse while rare they do occur. Patient Condition at Discharge: Stable Plan - Discharge Summary Discharge Rx Participant: Yes New Discharge Prescriptions: New Lactulose [Cephulac] 30 gm PO BID PRN #900 ml PRN Reason: Constipation QUEtiapine [SEROquel] 25 mg PO DAILY PRN 30 Days #30 tab PRN Reason: Agitation Or Acute Psychosis polyethylene glycoL 3350 [Miralax] 17 gm PO DAILY 30 Days #1 packet Continue lamoTRIgine 200 mg PO BID@0800,1700 Multivitamin [Men's Multi-Vitamin] 1 tab PO DAILY Aspirin EC [Ecotrin] 325 mg PO DAILY Carbidopa-Levodopa 25-100 mg [Sinemet 25-100 mg] 1 tab PO BID Donepezil [Aricept] 5 mg PO HS tab Memantine [Namenda] 5 mg PO BID tab Pravastatin Sodium [Pravachol] 40 mg PO HS Mirtazapine [Remeron] 15 mg PO HS #90 tab Brimonidine Tartrate [Alphagan P 0.2% Ophth Soln] 1 drop BOTH EYES BID Insulin Glargine [Lantus Vial] 10 - 22 units SQ HS Calcium Carbonate [Calcium] 600 mg PO DAILY@1200 Tamsulosin [Flomax] 0.4 mg PO BID cap QUEtiapine [SEROquel] 25 mg PO BID tab INSULIN ASPART (NovoLOG) [NovoLOG (formulary)] See Protocol SQ AC-TID Discharge Medication List Multivitamin [Men's Multi-Vitamin] 1 tab PO DAILY 03/28/14 [History] lamoTRIgine 200 mg PO BID@0800,1700 03/28/14 [History] Aspirin EC [Ecotrin] 325 mg PO DAILY 04/09/16 [History] Calcium Carbonate [Calcium] 600 mg PO DAILY@1200 02/20/21 [History] Carbidopa-Levodopa 25-100 mg [Sinemet 25-100 mg] 1 tab PO BID 08/09/22 [History] Tamsulosin [Flomax] 0.4 mg PO BID cap 08/19/22 [Rx] Donepezil [Aricept] 5 mg PO HS tab 08/27/22 [Rx] Memantine [Namenda] 5 mg PO BID tab 08/27/22 [Rx] QUEtiapine [SEROquel] 25 mg PO BID tab 08/27/22 [Rx] INSULIN ASPART (NovoLOG) [NovoLOG (formulary)] See Protocol SQ AC-TID 08/30/23 [History] Pravastatin Sodium [Pravachol] 40 mg PO HS 08/30/23 [History] Mirtazapine [Remeron] 15 mg PO HS #90 tab 09/05/23 [Rx] Brimonidine Tartrate [Alphagan P 0.2% Ophth Soln] 1 drop BOTH EYES BID 10/16/23 [History] Insulin Glargine [Lantus Vial] 10 - 22 units SQ HS 10/16/23 [History] Lactulose [Cephulac] 30 gm PO BID PRN #900 ml 10/21/23 [Rx] QUEtiapine [SEROquel] 25 mg PO DAILY PRN 30 Days #30 tab 10/21/23 [Rx] polyethylene glycoL 3350 [Miralax] 17 gm PO DAILY 30 Days #1 packet 10/21/23 [Rx] Follow up Appointment(s)/Referral(s): Mark North MD [STAFF PHYSICIAN] - 11/04/23 3:00 pm (Urologist Patient had blood in his urine at one point during his hospitalization) John Aquino MD [Primary Care Provider] - 1-2 days (Medical Doctor Please call and make follow up appoinment - the office was not available to take calls at time of discharge) Patient Instructions/Handouts: Quetiapine (By mouth), Parkinson Disease (DC), Dementia (GEN), Hematuria (GEN), Fecal Impaction (GEN) Activity/Diet/Wound Care/Special Instructions: Activity: As tolerated. Take breaks as needed. Requires supervision. Diet: Heart healthy and carb consistent diet. Avoid salts, or foods with hidden salts such as canned or boxed foods and frozen dinners. Extra salt makes your heart work harder and traps the fluid in your body for longer. Special Instructions: Aggressive and angry outbursts with reports of aggressive behaviors and altercation at home. Patient evaluated by psychiatrist recommending Seroquel 25 mg daily as needed for agitation/aggression. Initial plan was for discharge to long-term care facility, patient's has changed her mind and decided to take the patient back home with her at this time. Medically, patient is stable at this time and has shown no further episodes of aggressive behaviors or angry outbursts since initial day of hospitalization. Parkinson's dementia. Patient to continue carbidopa levodopa 25/100 mg tablets twice daily, Aricept 5 mg nightly, Lamictal 200 mg twice daily, Namenda 5 mg twice daily, Remeron 15 mg nightly, and Seroquel 25 mg twice daily. Hematuria with right groin pain, resolved. Resolved after treatment of fecal impaction. Urinalysis was positive for blood, protein, ketones, and greater than [address] abdomen and pelvis revealed large fecal impaction displacing urinary bladder anteriorly. Hematuria and right groin pain resolved status posttreatment of fecal impaction. Urology evaluated secondary to hematuria, hematuria is believed to be resulting from displaced urinary bladder. Urologist recommending patient follow-up outpatient after discharge for repeat urinalysis and if continued hematuria will plan for scheduling of outpatient cystoscopy. Fecal impaction resulting in displaced urinary bladder anteriorly, status post sigmoidoscopy with disimpaction. CT abdomen and pelvis revealed large fecal impaction displacing urinary bladder anteriorly. General surgery evaluated and took patient for flexible sigmoidoscopy with disimpaction. Patient discharged home on MiraLAX 17 g daily and lactulose 30 g twice daily as needed for constipation. Thank you for allowing us to participate in your care, it was truly a pleasure having you for our patient!!! Discharge/Stand Alone Forms: Community Resources, Help In The Home Discharge Disposition: HOME SELF-CARE
== END 2023-10-21 15:46 | disposition home or self-care (01) ==
LOC: EC 18:13 → INTOOBSV 20:10 → 5NMEDONC 20:10
PROVIDERS: ADMIT Student in an Organized Health Care Education/Training Program; ATTEND Student in an Organized Health Care Education/Training Program
DX: G20.A1 Parkinson's disease without dyskinesia, without mention of fluctuations (principal); F02.818 Dementia in other diseases classified elsewhere, unspecified severity, with other behavioral disturbance; K56.41 Fecal impaction; R31.9 Hematuria, unspecified; R10.31 Right lower quadrant pain; E87.5 Hyperkalemia; E83.52 Hypercalcemia; E11.65 Type 2 diabetes mellitus with hyperglycemia; N32.89 Other specified disorders of bladder; G40.909 Epilepsy, unspecified, not intractable, without status epilepticus; I10 Essential (primary) hypertension; Z87.442 Personal history of urinary calculi; Z87.891 Personal history of nicotine dependence; Z79.4 Long term (current) use of insulin; Z79.82 Long term (current) use of aspirin; Z79.899 Other long term (current) drug therapy; Z88.0 Allergy status to penicillin
CPT/HCPCS: 96361; 96372 ×5; 96374; 99285; 51798; 36415; 93005; 97161; 97165; 80053 ×2; 83735 ×2; 85025 ×2; 85027; 81001; 80306; 87086; 70450; 74177; 45330; G0378 ×6; G0480; J0780; J1650 ×3; Q9967; 80320

== ENCOUNTER 2024-05-28 23:46 | Emergency (ER) | payer MEDICARE ==
--- NOTE | 2024-05-28 23:51 | ED ---
Psych HPI - General Stated Complaint: Mental Health Time Seen by Provider: 05/28/24 23:47 Source: RN notes reviewed, old records reviewed Mode of arrival: EMS Limitations: altered mental status, physical limitation - History of Present Illness Initial Comments: This is a 73-year-old male with new diagnosis dementia coming in for altered mental status but psychiatric illness and suicidal thoughts MD Complaint: suicidal ideation, feels depressed, altered mental status, other (Diagnosis dementia) -: unknown Associated Psychiatric Symptoms: depression, suicidal ideation History of same: Yes Quality: constant Improves With: none Worsens With: none Associated Symptoms: denies other symptoms Treatments Prior to Arrival: placed on mental health hold If Self Harm: admits thoughts of self harm - Related Data Home Medications Medication Instructions Recorded Confirmed Carbidopa-Levodopa 25-100 mg 1 tab PO TID 08/09/22 05/29/24 [Sinemet 25-100 mg] INSULIN ASPART (NovoLOG) [NovoLOG 7 unit SQ AC-TID 08/30/23 05/29/24 (formulary)] Pravastatin Sodium [Pravachol] 40 mg PO HS 08/30/23 05/29/24 Brimonidine Tartrate [Alphagan P 1 drop BOTH EYES TID 10/16/23 05/29/24 0.2% Ophth Soln] Insulin Glargine [Lantus Vial] 22 units SQ HS 10/16/23 05/29/24 Donepezil HCl [Aricept] 10 mg PO DAILY 05/29/24 05/29/24 Memantine [Namenda] 10 mg PO BID 05/29/24 05/29/24 Mirtazapine 7.5 mg PO HS 05/29/24 05/29/24 lamoTRIgine [LaMICtal] 100 mg PO BID 05/29/24 05/29/24 Previous Rx's Medication Instructions Recorded Tamsulosin [Flomax] 0.4 mg PO BID cap 08/19/22 QUEtiapine [SEROquel] 25 mg PO BID tab 08/27/22 Allergies Allergy/AdvReac Type Severity Reaction Status Date / Time Penicillins Allergy Rash/Hives Verified 05/29/24 12:52 peanut AdvReac Nausea & Verified 05/29/24 12:52 Vomiting & Diarrhea Review of Systems ROS Statement: Those systems with pertinent positive or pertinent negative responses have been documented in the HPI. ROS Other: All systems not noted in ROS Statement are negative. Past Medical History Past Medical History: Diabetes Mellitus, Eye Disorder, Hypertension, Seizure Disorder Additional Past Medical History / Comment(s): encephalopathy;VARICOSE VEINS,EYE FLOATERS,TREMORS,SEIZURES WITH LOW BLOOD SUGAR-LAST SEIZURE APPROX JUN 2015, parkinson History of Any Multi-Drug Resistant Organisms: VRE Date of last positivie culture/infection: 08/31/23 MDRO Source:: Urine Past Surgical History: Orthopedic Surgery Additional Past Surgical History / Comment(s): cataracts bilateral. total left knee. left index finger thea placement Past Anesthesia/Blood Transfusion Reactions: No Reported Reaction Past Psychological History: No Psychological Hx Reported Smoking Status: Former smoker Past Alcohol Use History: None Reported Additional Past Alcohol Use History / Comment(s): QUIT SMOKING 1974,STARTED 1973 Past Drug Use History: None Reported - Past Family History Brother(s) Family Medical History: Diabetes Mellitus Sister(s) Family Medical History: Diabetes Mellitus Additional Family Medical History / Comment(s): MS Father Family Medical History: Cancer, Diabetes Mellitus Additional Family Medical History / Comment(s): [place] General Exam General appearance: alert, in no apparent distress Head exam: Present: atraumatic, normocephalic, normal inspection Eye exam: Present: normal appearance, PERRL, EOMI. Absent: scleral icterus, conjunctival injection, periorbital swelling ENT exam: Present: normal exam, mucous membranes moist Neck exam: Present: normal inspection. Absent: tenderness, meningismus, lymphadenopathy Respiratory exam: Present: normal lung sounds bilaterally. Absent: respiratory distress, wheezes, rales, rhonchi, stridor Cardiovascular Exam: Present: regular rate, normal rhythm, normal heart sounds. Absent: systolic murmur, diastolic murmur, rubs, gallop, clicks GI/Abdominal exam: Present: soft, normal bowel sounds. Absent: distended, t enderness, guarding, rebound, rigid Extremities exam: Present: normal inspection, full ROM, normal capillary refill. Absent: tenderness, pedal edema, joint swelling, calf tenderness Back exam: Present: normal inspection Neurological exam: Present: alert, oriented X3, CN II-XII intact Psychiatric exam: Present: normal affect, normal mood Skin exam: Present: warm, dry, intact, normal color. Absent: rash Course Vital Signs 05/28/24 05/29/24 05/29/24 23:53 06:49 07:35 Temperature 98.1 F Pulse Rate 73 76 75 Respiratory 20 16 15 Rate Blood Pressure 198/71 186/92 159/77 O2 Sat by Pulse 98 96 99 Oximetry 05/29/24 23:00 Temperature Pulse Rate 77 Respiratory 16 Rate Blood Pressure 111/76 O2 Sat by Pulse 99 Oximetry - Reevaluation(s) Reevaluation #1: 05/29/24 02:48 Medical records reviewed Reevaluation #2: 05/29/24 02:48 Medically cleared for psychiatric evaluation Reevaluation #3: 05/29/24 02:48 Patient has no complaints Reevaluation #4: Was pt. sent in by a medical professional or institution (KATERYNA Sandoval, SHIELD OPERATOR, urgent care, hospital, or retirement...) When possible be specific @ -no Did you speak to anyone other than the patient for history (EMS, parent, family, police, friend...)? What history was obtained from this source @ -no Did you review nursing and triage notes (agree or disagree)? Why? @ -agree Are old charts reviewed (outside hosp., previous admission, EMS record, old EKG, old radiological studies, urgent care reports/EKG's, retirement records)? Report findings @ -yes Differential Diagnosis (chest pain, altered mental status, abdominal pain women, abdominal pain men, vaginal bleeding, weakness, fever, dyspnea, syncope, headache, dizziness, GI bleed, back pain, seizure, CVA, palpatations, mental health, musculoskeletal)? @ -prior EKG interpreted by me (3pts min.). @ -no X-rays interpreted by me (1pt min.). @ -no CT interpreted by me (1pt min.). @ -no U/S interpreted by me (1pt. min.). @ -no What testing was considered but not performed or refused? (CT, X-rays, U/S, labs)? Why? @ -none What meds were considered but not given or refused? Why? @ -none Did you discuss the management of the patient with other professionals (professionals i.e. KATERYNA Sandoval, SHIELD OPERATOR, lab, RT, psych nurse, social organization professor, kiln feeder, teacher, upscale security officer, case folder)? Give summary @ -no Was smoking cessation discussed for >3mins.? @ -no Was critical care preformed (if so, how long)? @ -no Were there social determinants of health that impacted care today? How? (Homelessness, low income, unemployed, alcoholism, drug addiction, t ransportation, low edu. Level, literacy, decrease access to med. care, snf, rehab)? @ -none Was there de-escalation of care discussed even if they declined (Discuss DNR or withdrawal of care, Hospice)? DNR status @ -no What co-morbidities impacted this encounter? (DM, HTN, Smoking, COPD, CAD, Can cer, CVA, ARF, Chemo, Hep., AIDS, mental health diagnosis, sleep apnea, morbid obesity)? @ -none Was patient admitted / discharged? Hospital course, mention meds given and route, prescriptions, significant lab abnormalities, going to OR and other pertinent info. @ - 73 Male to be transferred for inpatient psychiatric evaluation and treatment For inpatient psychiatric evaluation suicidal thoughts Undiagnosed new problem with uncertain prognosis? @ -no Drug Therapy requiring intensive monitoring for toxicity (Heparin, Nitro, Insulin, Cardizem)? @ -no Were any procedures done? @ -no Diagnosis/symptom? @ - Acute, or Chronic, or Acute on Chronic? @ -Acute Uncomplicated (without systemic symptoms) or Complicated (systemic symptoms)? @ -Complicated Side effects of treatment? @ -no Exacerbation, Progression, or Severe Exacerbation? @ -exacerbation Poses a threat to life or bodily function? How? (Chest pain, USA, NM, pneumonia, PE, COPD, DKA, ARF, appy, cholecystitis, CVA, Diverticulitis, Homicidal, Suicidal, threat to staff... and all critical care pts) @ -yes Reevaluation #5: Differential Mental Health Depression, anxiety, bipolar, psychosis, schizophrenia, borderline personality, situational depression, adjustment disorder, behavioral disorder, brain tumor, malingering, substance abuse, encephalopathy, medication reaction, dementia, hypothyroidism, degenerative neurologic disorder, lupus.... This is not meant to be all-inclusive list Medical Decision Making - Medical Decision Making 73 Male to be transferred for inpatient psychiatric evaluation and treatment - Lab Data Result diagrams: 05/29/24 03:04 05/29/24 03:04 Lab Results 05/29/24 05/29/24 05/29/24 Range/Units 00:49 03:04 03:04 WBC 6.3 (3.8-10.6) k/uL RBC 4.40 (4.30-5.90) m/uL Hgb 13.4 (13.0-17.5) gm/dL Hct 40.1 (39.0-53.0) % MCV 91.2 (80.0-100.0) fL MCH 30.4 (25.0-35.0) pg MCHC 33.3 (31.0-37.0) g/dL RDW 13.2 (11.5-15.5) % Plt Count 173 (150-450) k/uL MPV 8.3 Neutrophils % 68 % Lymphocytes % 24 % Monocytes % 4 % Eosinophils % 1 % Basophils % 0 % Neutrophils # 4.3 (1.3-7.7) k/uL Lymphocytes # 1.5 (1.0-4.8) k/uL Monocytes # 0.3 (0-1.0) k/uL Eosinophils # 0.1 (0-0.7) k/uL Basophils # 0.0 (0-0.2) k/uL Sodium 140 (137-145) mmol/L Potassium 4.2 (3.5-5.1) mmol/L Chloride 103 (98-107) mmol/L Carbon Dioxide 29 (22-30) mmol/L Anion Gap 8 mmol/L BUN 15 (9-20) mg/dL Creatinine 0.86 (0.66-1.25) mg/dL Est GFR (CKD-EPI)AfAm >90 (>60 ml/min/1.73 sqM) Est GFR (CKD-EPI)NonAf 87 (>60 ml/min/1.73 sqM) Glucose 119 H (74-99) mg/dL POC Glucose (mg/dL) 95 (70-110) mg/dL POC Glu [employer] Tech ID Hand, [place] Calcium 9.6 (8.4-10.2) mg/dL Total Bilirubin 0.8 (0.2-1.3) mg/dL AST 38 (17-59) U/L ALT 54 H (4-49) U/L Alkaline Phosphatase 82 (38-126) U/L Total Protein 6.8 (6.3-8.2) g/dL Albumin 4.4 (3.5-5.0) g/dL Urine Color Urine Appearance (Clear) Urine pH (5.0-8.0) Ur Specific Mouthcard (1.001-1.035) Urine Protein (Negative) Urine Glucose (UA) (Negative) Urine Ketones (Negative) Urine Blood (Negative) Urine Nitrite (Negative) Urine Bilirubin (Negative) Urine Urobilinogen (<2.0) mg/dL Ur Leukocyte Esterase (Negative) Urine RBC (0-5) /hpf Urine WBC (0-5) /hpf Ur Squamous Epith Cells (0-4) /hpf Amorphous Sediment (None) /hpf Granular Casts (0) /lpf Urine Mucus (None) /hpf Urine Opiates Screen (NotDetected) Ur Oxycodone Screen (NotDetected) Urine Methadone Screen (NotDetected) Ur Barbiturates Screen (NotDetected) U Tricyclic Antidepress (NotDetected) Ur Phencyclidine Scrn (NotDetected) Ur Amphetamines Screen (NotDetected) U Methamphetamines Scrn (NotDetected) U Benzodiazepines Scrn (NotDetected) Urine Cocaine Screen (NotDetected) U Marijuana (THC) Screen (NotDetected) Influenza Type A (PCR) (Not Detectd) Influenza Type B (PCR) (Not Detectd) RSV (PCR) (Not Detectd) SARS-CoV-2 (PCR) (Not Detectd) 05/29/24 05/29/24 05/29/24 Range/Units 03:11 03:25 08:18 WBC (3.8-10.6) k/uL RBC (4.30-5.90) m/uL Hgb (13.0-17.5) gm/dL Hct (39.0-53.0) % MCV (80.0-100.0) fL MCH (25.0-35.0) pg MCHC (31.0-37.0) g/dL RDW (11.5-15.5) % Plt Count (150-450) k/uL MPV Neutrophils % % Lymphocytes % % Monocytes % % Eosinophils % % Basophils % % Neutrophils # (1.3-7.7) k/uL Lymphocytes # (1.0-4.8) k/uL Monocytes # (0-1.0) k/uL Eosinophils # (0-0.7) k/uL Basophils # (0-0.2) k/uL Sodium (137-145) mmol/L Potassium (3.5-5.1) mmol/L Chloride (98-107) mmol/L Carbon Dioxide (22-30) mmol/L Anion Gap mmol/L BUN (9-20) mg/dL Creatinine (0.66-1.25) mg/dL Est GFR (CKD-EPI)AfAm (>60 ml/min/1.73 sqM) Est GFR (CKD-EPI)NonAf (>60 ml/min/1.73 sqM) Glucose (74-99) mg/dL POC Glucose (mg/dL) 123 H (70-110) mg/dL POC Glu [employer] Tech ID Naima Knight Calcium (8.4-10.2) mg/dL Total Bilirubin (0.2-1.3) mg/dL AST (17-59) U/L ALT (4-49) U/L Alkaline Phosphatase (38-126) U/L Total Protein (6.3-8.2) g/dL Albumin (3.5-5.0) g/dL Urine Color Light Yellow Urine Appearance Cloudy (Clear) Urine pH 7.0 (5.0-8.0) Ur Specific Mouthcard 1.013 (1.001-1.035) Urine Protein Negative (Negative) Urine Glucose (UA) Negative (Negative) Urine Ketones 1+ H (Negative) Urine Blood Negative (Negative) Urine Nitrite Negative (Negative) Urine Bilirubin Negative (Negative) Urine Urobilinogen <2.0 (<2.0) mg/dL Ur Leukocyte Esterase Large H (Negative) Urine RBC 2 (0-5) /hpf Urine WBC >182 H (0-5) /hpf Ur Squamous Epith Cells 1 (0-4) /hpf Amorphous Sediment Occasional H (None) /hpf Granular Casts 5 (0) /lpf Urine Mucus Occasional H (None) /hpf Urine Opiates Screen Not Detected (NotDetected) Ur Oxycodone Screen Not Detected (NotDetected) Urine Methadone Screen Not Detected (NotDetected) Ur Barbiturates Screen Not Detected (NotDetected) U Tricyclic Antidepress Not Detected (NotDetected) Ur Phencyclidine Scrn Not Detected (NotDetected) Ur Amphetamines Screen Not Detected (NotDetected) U Methamphetamines Scrn Not Detected (NotDetected) U Benzodiazepines Scrn Not Detected (NotDetected) Urine Cocaine Screen Not Detected (NotDetected) U Marijuana (THC) Screen Not Detected (NotDetected) Influenza Type A (PCR) Not Detected (Not Detectd) Influenza Type B (PCR) Not Detected (Not Detectd) RSV (PCR) Not Detected (Not Detectd) SARS-CoV-2 (PCR) Not Detected (Not Detectd) 05/29/24 05/29/24 Range/Units 15:41 20:57 WBC (3.8-10.6) k/uL RBC (4.30-5.90) m/uL Hgb (13.0-17.5) gm/dL Hct (39.0-53.0) % MCV (80.0-100.0) fL MCH (25.0-35.0) pg MCHC (31.0-37.0) g/dL RDW (11.5-15.5) % Plt Count (150-450) k/uL MPV Neutrophils % % Lymphocytes % % Monocytes % % Eosinophils % % Basophils % % Neutrophils # (1.3-7.7) k/uL Lymphocytes # (1.0-4.8) k/uL Monocytes # (0-1.0) k/uL Eosinophils # (0-0.7) k/uL Basophils # (0-0.2) k/uL Sodium (137-145) mmol/L Potassium (3.5-5.1) mmol/L Chloride (98-107) mmol/L Carbon Dioxide (22-30) mmol/L Anion Gap mmol/L BUN (9-20) mg/dL Creatinine (0.66-1.25) mg/dL Est GFR (CKD-EPI)AfAm (>60 ml/min/1.73 sqM) Est GFR (CKD-EPI)NonAf (>60 ml/min/1.73 sqM) Glucose (74-99) mg/dL POC Glucose (mg/dL) 280 H 369 H (70-110) mg/dL POC Glu Communications Tech ID Amauri, Marija Amauri, Marija Calcium (8.4-10.2) mg/dL Total Bilirubin (0.2-1.3) mg/dL AST (17-59) U/L ALT (4-49) U/L Alkaline Phosphatase (38-126) U/L Total Protein (6.3-8.2) g/dL Albumin (3.5-5.0) g/dL Urine Color Urine Appearance (Clear) Urine pH (5.0-8.0) Ur Specific Mouthcard (1.001-1.035) Urine Protein (Negative) Urine Glucose (UA) (Negative) Urine Ketones (Negative) Urine Blood (Negative) Urine Nitrite (Negative) Urine Bilirubin (Negative) Urine Urobilinogen (<2.0) mg/dL Ur Leukocyte Esterase (Negative) Urine RBC (0-5) /hpf Urine WBC (0-5) /hpf Ur Squamous Epith Cells (0-4) /hpf Amorphous Sediment (None) /hpf Granular Casts (0) /lpf Urine Mucus (None) /hpf Urine Opiates Screen (NotDetected) Ur Oxycodone Screen (NotDetected) Urine Methadone Screen (NotDetected) Ur Barbiturates Screen (NotDetected) U Tricyclic Antidepress (NotDetected) Ur Phencyclidine Scrn (NotDetected) Ur Amphetamines Screen (NotDetected) U Methamphetamines Scrn (NotDetected) U Benzodiazepines Scrn (NotDetected) Urine Cocaine Screen (NotDetected) U Marijuana (THC) Screen (NotDetected) Influenza Type A (PCR) (Not Detectd) Influenza Type B (PCR) (Not Detectd) RSV (PCR) (Not Detectd) SARS-CoV-2 (PCR) (Not Detectd) Disposition Clinical Impression: Depression, Acute anxiety, Adjustment reaction of adult life, Altered mental status Disposition: TRANSFER TO PSYCH HOSP/UNIT Condition: Fair Is patient prescribed a controlled substance at d/c from ED?: No Referrals: John Aquino MD [Primary Care Provider] - 1-2 days
[2024-05-29 00:02] VITALS: TEMP 98.1
[2024-05-29 00:50] LABS: Glucose,Whole Blood 95 mg/dL (70-110)
[2024-05-29 03:35] LABS: ALT 54 U/L (4-49); AST 38 U/L (17-59); African American GFR (CKD) >90 (>60 ml/min/1.73 sqM); Albumin 4.4 g/dL (3.5-5.0); Alkaline Phosphatase 82 U/L (38-126); Anion Gap 8 mmol/L; Blood Urea Nitrogen 15 mg/dL (9-20); Calcium 9.6 mg/dL (8.4-10.2); Carbon Dioxide 29 mmol/L (22-30); Chloride 103 mmol/L (98-107); Glucose 119 mg/dL (74-99); Non-African American GFR(CKD) 87 (>60 ml/min/1.73 sqM); Potassium 4.2 mmol/L (3.5-5.1); Sodium 140 mmol/L (137-145); Total Bilirubin 0.8 mg/dL (0.2-1.3); Total Protein 6.8 g/dL (6.3-8.2)
[2024-05-29 03:42] LABS: Basophils % (A) 0 %; Eosinophils # (A) 0.1 k/uL (0-0.7); Eosinophils % (A) 1 %; HCT 40.1 % (39.0-53.0); HGB 13.4 gm/dL (13.0-17.5); Lymphocytes # (A) 1.5 k/uL (1.0-4.8); Lymphocytes % (A) 24 %; MCH 30.4 pg (25.0-35.0); MCHC 33.3 g/dL (31.0-37.0); MCV 91.2 fL (80.0-100.0); Mean Platelet Volume 8.3; Monocytes # (A) 0.3 k/uL (0-1.0); Monocytes % (A) 4 %; Neutrophils # (A) 4.3 k/uL (1.3-7.7); Neutrophils % (A) 68 %; Platelet Count 173 k/uL (150-450); RDW 13.2 % (11.5-15.5); WBC 6.3 k/uL (3.8-10.6)
[2024-05-29 04:46] LABS: Amorphous Sediment,Urine Occasional /hpf; Appearance,Urine Cloudy (Clear); Bilirubin,Urine Negative (Negative); Blood,Urine Negative (Negative); Color,Urine Light Yellow; Glucose,Urine (UA) Negative (Negative); Granular Casts,Urine 5 /lpf (0); Ketones,Urine 1+ (Negative); Leukocyte Esterase,Urine Large (Negative); Mucus,Urine Occasional /hpf; Nitrite,Urine Negative (Negative); Protein,Urine Negative (Negative); RBC,Urine 2 /hpf (0-5); Specific Gravity,Urine 1.013 (1.001-1.035); Squamous Epithelial Cell,Urine 1 /hpf (0-4); Urobilinogen,Urine <2.0 mg/dL (<2.0); WBC,Urine >182 /hpf (0-5)
[2024-05-29 04:54] LABS: Amphetamine Screen,Urine Not Detected (NotDetected); Barbiturate Screen,Urine Not Detected (NotDetected); Benzodiazepines Screen,Urine Not Detected (NotDetected); Cocaine Screen,Urine Not Detected (NotDetected); Methadone Screen, Urine Not Detected (NotDetected); Opiate Screen,Urine Not Detected (NotDetected); Oxycodone Screen, Urine Not Detected (NotDetected); Phencyclidine Screen,Urine Not Detected (NotDetected); Tricyclic Antidepressant,Urine Not Detected (NotDetected); Urn Cannabinoid Scrn Not Detected (NotDetected)
[2024-05-29 08:21] LABS: Glucose,Whole Blood 123 mg/dL (70-110)
[2024-05-29] MEDS: CALCIUM CARBONATE 500 MG CHEWABLE PO PRN (15:34)
[2024-05-29 15:42] LABS: Glucose,Whole Blood 280 mg/dL (70-110)
[2024-05-29] MEDS: INSULIN ASPART (NovoLOG) 100 UNIT/ML VIAL SQ SCH (18:50)
[2024-05-29] MEDS: DONEPEZIL 10 MG TAB PO SCH (18:50)
[2024-05-29] MEDS: CARBIDOPA-LEVODOPA 25-100 MG 1 EACH TAB PO SCH (18:50)
[2024-05-29] MEDS: BRIMONIDINE TARTRATE 0.2% DROPS 5 ML BTL BOTH EYES SCH (19:34)
[2024-05-29] MEDS: QUEtiapine 25 MG TAB PO SCH (20:51)
[2024-05-29] MEDS: MIRTAZAPINE 15 MG TAB PO SCH (20:51)
[2024-05-29] MEDS: lamoTRIgine 100 MG TAB PO SCH (20:51)
[2024-05-29] MEDS: PRAVASTATIN SODIUM 40 MG TAB PO SCH (20:51)
[2024-05-29] MEDS: TAMSULOSIN 0.4 MG CAP.ER.24H PO SCH (20:51)
[2024-05-29] MEDS: MEMANTINE 10 MG TAB PO SCH (20:51)
[2024-05-29 20:58] LABS: Glucose,Whole Blood 369 mg/dL (70-110)
[2024-05-29] MEDS: INSULIN DETEMIR (LEVEMIR) 100 UNIT/ML SYR SQ SCH (21:00)
[2024-05-29 23:03] VITALS: BP 111/76; PULSE 77; RESP 16
[2024-05-30] MEDS ORDERED: INSULIN ASPART (NovoLOG) 100 UNIT/ML VIAL SQ SCH (07:30)
== END 2024-05-30 00:37 ==
LOC: EC 23:46
CPT/HCPCS: 36415; 80053; 80306; 81001; 82075; 85025; 87086; 87636; 99285